=== PATIENT | male | born 1965 | race Caucasian/White ===

== ENCOUNTER 2017-12-17 08:40 | Outpatient (RCR) | payer BC, SELFPAY ==
[2017-12-17 09:52] LABS: Absolute Lymphocyte Count 2.42 X10^3/ul (0.83-4.51); Absolute Neutrophil Count 6.6 X10^3/uL (2.0-7.7); Basophil# 0.03 X10^3/uL; Basophil% 0.3 % (0-1); Eosinophil# 0.26 X10^3/uL; Eosinophils% 2.5 % (0-5); Hematocrit 44.2 % (40-54); Hemoglobin 14.5 g/dl (13.0-16.5); Lymphocyte # 2.42 X10^3/ul (4.0); Lymphocyte % 22.9 % (19-41); Mean Corp Hgb Conc 32.8 g/gl (32-36); Mean Corpuscular Volume 88.4 fL (80-94); Mean Platelet Vol. 10.3 fl (6.2-12.0); Monocyte# 1.23 X10^3/uL; Monocyte% 11.6 % (0-10); Neutrophil # 6.61 X10^3/uL (2.7-7.7); Neutrophil % 62.5 % (47-70); Platelet Count 269 K/mm3 (150-450); RBC Distribution Width CV 12.8 % (11.6-14.6); RBC Distribution Width SD 41.1 fl (35.1-43.9); White Blood Count 10.6 K/mm3 (4.4-11.0)
[2017-12-17 09:53] LABS: POSITIVE COUNT NO; POSITIVE DIFFERENTIAL NO; POSITIVE MORPHOLOGY NO
[2017-12-17 10:23] LABS: ALB/GLOB Ratio 1.1 RATIO (0.9-2.4); AST(SGOT) 26 U/L (15-37); Alanine Aminotransfer ALT/SGPT 32 U/L (12-78); Albumin, Serum 3.9 g/dL (3.4-5.0); Alkaline Phosphatase 67 U/L (45-117); Anion Gap 10 (5-15); BUN 16 mg/dL (7-18); BUN/Creat Ratio 16.6 RATIO (10-20); Bilirubin, Direct 0.12 mg/dL (0.00-0.30); Calcium,Total 8.6 mg/dL (8.5-10.1); Chloride 105 mmol/L (98-107); Cholesterol 208 mg/dL (200); Creatinine, Serum 0.96 mg/dL (0.70-1.30); EST Glomerular Filtration Rate 88 mL/min (>60); Est Glom Filt Rate - Afr Amer 106 mL/min (>60); Globulin 3.6 g/dL (2.2-4.2); Glucose 94 mg/dL (70-110); High Density Lipoprotein 72 mg/dL; PSA,Total - Annual Screen 1.14 ng/mL (0.00-4.00); Potassium 4.1 mmol/L (3.5-5.1); Protein, Total 7.5 g/dL (6.4-8.2); Sodium Level 141 mmol/L (136-145); Triglycerides 66 mg/dL; Very Low Density Lipoprotein 13 mg/dL (5-40)
== END 2017-12-17 08:41 | disposition home or self-care (01) ==
LOC: LAB 08:40
PROVIDERS: Family Provider Family Medicine; PCP Family Medicine; Visit Provider Internal Medicine Rheumatology
DX: Z00.00 Encounter for general adult medical examination without abnormal findings (principal); Z12.5 Encounter for screening for malignant neoplasm of prostate; M06.4 Inflammatory polyarthropathy; Z79.899 Other long term (current) drug therapy
CPT/HCPCS: 36415; 80053; 80061; 82248; 84153; 85025; G0103

== ENCOUNTER → 2018-02-09 10:12 | Outpatient (CLI) | payer BC, SELFPAY ==
[2018-02-09 11:03] LABS: Absolute Lymphocyte Count 1.44 X10^3/ul (0.83-4.51); Absolute Neutrophil Count 4.2 X10^3/uL (2.0-7.7); Basophil# 0.04 X10^3/uL; Basophil% 0.6 % (0-1); Eosinophil# 0.19 X10^3/uL; Eosinophils% 2.7 % (0-5); Hematocrit 43.8 % (40-54); Hemoglobin 14.3 g/dl (13.0-16.5); Lymphocyte # 1.44 X10^3/ul (4.0); Lymphocyte % 20.7 % (19-41); Mean Corp Hgb Conc 32.6 g/gl (32-36); Mean Corpuscular Hgb 29.2 pg (27.0-32.0); Mean Corpuscular Volume 89.4 fL (80-94); Mean Platelet Vol. 9.8 fl (6.2-12.0); Monocyte# 1.11 X10^3/uL; Monocyte% 15.9 % (0-10); Neutrophil # 4.17 X10^3/uL (2.7-7.7); Platelet Count 272 K/mm3 (150-450); RBC Distribution Width CV 13.1 % (11.6-14.6); RBC Distribution Width SD 42.6 fl (35.1-43.9)
[2018-02-09 11:05] LABS: POSITIVE COUNT NO; POSITIVE DIFFERENTIAL NO; POSITIVE MORPHOLOGY NO
[2018-02-09 11:40] LABS: AST(SGOT) 33 U/L (15-37); Alanine Aminotransfer ALT/SGPT 33 U/L (16-61); Albumin, Serum 3.8 g/dL (3.2-5.0); Alkaline Phosphatase 70 U/L (45-117); Creatinine, Serum 0.94 mg/dL (0.70-1.30); EST Glomerular Filtration Rate 90 mL/min (>60); Est Glom Filt Rate - Afr Amer 109 mL/min (>60); Globulin 3.4 g/dL (2.2-4.2); Protein, Total 7.2 g/dL (6.4-8.2)
== END ==
PROVIDERS: Visit Provider Internal Medicine Rheumatology
DX: M06.4 Inflammatory polyarthropathy (principal); Z79.899 Other long term (current) drug therapy
CPT/HCPCS: 36415; 80076; 82565; 85025

== ENCOUNTER → 2018-03-18 17:01 | Outpatient (CLI) | payer BC, SELFPAY ==
--- NOTE | 2018-03-18 17:25 | RAD_ITS ---
STUDY: X-RAY - THORACIC SPINE REASON FOR EXAM: Male, 52 years old. Chronic back pain. TECHNIQUE: 3 view(s) of the thoracic spine were obtained. COMPARISON: None. FINDINGS: Alignment is normal. There is mild anterior wedging of several midthoracic vertebral bodies, which is probably old, along with multilevel marginal osteophytes. In the lower cervical spine disc space narrowing with marginal osteophytes. The soft tissue structures are unremarkable. RAD/Thoracic Spine 3 Views IMPRESSION: Multilevel degenerative changes of the lower cervical and lower thoracic spine. Multilevel mild compression fractures in the midthoracic spine which are probably old. If the patient demonstrates focal tenderness consider correlation with MRI. Electronically Signed: Hernesto Martinez MD at 4:27 EDT , Service support ,
--- NOTE | 2018-03-18 17:26 | RAD_ITS ---
STUDY: X-RAY - LUMBAR SPINE REASON FOR EXAM: Male, 52 years old. Chronic low back pain. TECHNIQUE: 3 view(s) of the lumbar spine were obtained. COMPARISON: None FINDINGS: Normal lumbar lordosis. There is no substantial scoliosis. There is a normal alignment of the vertebrae. Disc space narrowing at multiple levels in the lower thoracic spine as well as from L3-4 through L5-S1. Marginal osteophytes at multiple levels in the lumbar spine. No evidence of acute fracture. The soft tissue structures are unremarkable. RAD/Lumbar Spine 2 or 3 Views IMPRESSION: The level degenerative changes of the lower thoracic and lumbar spine. Electronically Signed: Hernesto Martinez MD at 4:28 EDT , Service support ,
[2018-03-18 17:35] LABS: Absolute Lymphocyte Count 2.73 X10^3/ul (0.83-4.51); Absolute Neutrophil Count 7.2 X10^3/uL (2.0-7.7); Basophil# 0.03 X10^3/uL; Basophil% 0.3 % (0-1); Eosinophil# 0.22 X10^3/uL; Eosinophils% 1.9 % (0-5); Hematocrit 42.5 % (40-54); Hemoglobin 14.1 g/dl (13.0-16.5); Lymphocyte # 2.73 X10^3/ul (4.0); Lymphocyte % 23.5 % (19-41); Mean Corp Hgb Conc 33.2 g/gl (32-36); Mean Corpuscular Hgb 29.4 pg (27.0-32.0); Mean Corpuscular Volume 88.7 fL (80-94); Mean Platelet Vol. 9.3 fl (6.2-12.0); Monocyte% 12.1 % (0-10); Neutrophil # 7.22 X10^3/uL (2.7-7.7); Neutrophil % 62.1 % (47-70); Platelet Count 271 K/mm3 (150-450); RBC Distribution Width CV 12.8 % (11.6-14.6); RBC Distribution Width SD 41.5 fl (35.1-43.9); Red Blood Count 4.79 M/mm3 (4.6-6.2); White Blood Count 11.6 K/mm3 (4.4-11.0)
[2018-03-18 17:39] LABS: POSITIVE COUNT NO; POSITIVE DIFFERENTIAL NO; POSITIVE MORPHOLOGY NO
[2018-03-18 18:12] LABS: AST(SGOT) 37 U/L (15-37); Alanine Aminotransfer ALT/SGPT 33 U/L (16-61); Albumin, Serum 3.7 g/dL (3.2-5.0); Alkaline Phosphatase 68 U/L (45-117); Creatinine, Serum 1.06 mg/dL (0.70-1.30); EST Glomerular Filtration Rate 78 mL/min (>60); Est Glom Filt Rate - Afr Amer 95 mL/min (>60); Globulin 3.2 g/dL (2.2-4.2); Protein, Total 6.9 g/dL (6.4-8.2)
== END ==
PROVIDERS: Family Provider Family Medicine; PCP Family Medicine; Visit Provider Internal Medicine Rheumatology
DX: M13.0 Polyarthritis, unspecified (principal)
CPT/HCPCS: 36415; 72072; 72100; 80076; 82565; 85025

== ENCOUNTER → 2018-04-15 14:22 | Outpatient (CLI) | payer BC, SELFPAY ==
--- NOTE | 2018-04-15 14:30 | BD_ITS ---
STUDY: DUAL ENERGY X-RAY ABSORPTIOMETRY / DXA REASON FOR EXAM: Male, 52 years old. Loss of height. TECHNIQUE: Bone Mineral Density (BMD) measurements of lumbar spine and bilateral hips were obtained. COMPARISON: None. FINDINGS: Lumbar Spine (L1-L4): g/cm2 (1.138) / T-score (-0.5) / Z-score (-0.3) Findings are suggestive of normal bone density with a low fracture risk. Left Femur Total: g/cm2 (1.011) / T-score (-0.6) / Z-score (-0.3) Left Femoral Neck: g/cm2 (1.006) / T-score (-0.5) / Z-score (0.2) Right Femur Total: g/cm2 (1.059) / T-score (-0.3) / Z-score (0.1) Right Femoral Neck: g/cm2 (1.016) / T-score (-0.4) / Z-score (0.2) BD/Dexa Bone Density Study IMPRESSION: The patient is considered normal as outlined below according to World [place] Organization (WHO) criteria with a low fracture risk. Reference Information: The T-score is the number of standard deviations above or below the standard which is normal for young adults at their peak bone mineral density. The World Health Organization (WHO) interprets the T-scores as follows: Above -1 Normal bone density Between -1 and -2.5 Osteopenia Equal to / or below -2.5 Osteoporosis As a practical clinical guideline, osteopenia may be graded as follows: Mild -1 through -1.5 Moderate -1.6 through -2.0 Severe -2.1 through -2.4 The Z-score is the number of standard deviations above or below age-matched controls. A Z-score of less than -1.5 would be considered abnormal. References: 1. NIH Osteoporosis and Related Bone Diseases http://www.osteo.org 2. International Society for Clinical Densitometry http://www.iscd.org 3. National Osteoporosis Foundation http://www.nof.org Electronically Signed: Shaan Reese MD at 15:44 EDT Tel [phone], Service support ,
== END ==
PROVIDERS: Family Provider Family Medicine; PCP Family Medicine; Visit Provider Family Medicine
DX: M06.9 Rheumatoid arthritis, unspecified (principal)
CPT/HCPCS: 77080

== ENCOUNTER → 2018-04-22 15:27 | Outpatient (CLI) | payer BC, SELFPAY ==
--- NOTE | 2018-04-22 15:31 | MRI_ITS ---
STUDY: MRI THORACIC SPINE WITHOUT CONTRAST REASON FOR EXAM: Male, 52 years old. PAIN, POLYARTHRITIS -- upper,lower thoracic pain, low back pain, no radiculopathy, NKI. TECHNIQUE: Standardized fat and water weighted pulse sequences were obtained in the sagittal and axial planes. COMPARISON: None. FINDINGS: Normal kyphosis of the thoracic spine. There is no substantial scoliosis. T1-2, T2-3, T3-4, T4-5, T5-6, T6-7, T7-8, T8-9, T9-10, T10-11, T11-12: There is diffuse disc space narrowing and endplate spondylosis without significant central canal or foraminal stenosis. Additionally there are multilevel small chronic Schmorl's nodes. Normal visualized thoracic cord. The soft tissue structures are unremarkable. MRI/Spine Thoracic (Routine) IMPRESSION: Mild degenerative changes. Electronically Signed: Peggy Arechiga MD at 11:12 EDT Tel , Service support ,
--- NOTE | 2018-04-22 15:31 | MRI_ITS ---
STUDY: MRI LUMBAR SPINE WITHOUT CONTRAST REASON FOR EXAM: Male, 52 years old. Pain TECHNIQUE: Standardized fat and water weighted pulse sequences were obtained in the sagittal and axial planes. COMPARISON: X-ray 03/18/2018 FINDINGS: T12-L1: There is disc desiccation (image 7/32 sagittal T2). Normal lumbar lordosis. There is no substantial scoliosis. Normal conus medullaris that terminates at the T12-L1 level. L1-2: There is disc desiccation (image 7/13 sagittal T2). L2-3: There is disc desiccation, slight loss of disc space height, endplate spondylosis and disc bulge with shallow left extraforaminal disc protrusion (image 18, 17/25 axial T2, 7/13 sagittal T2). There is impingement of the left exiting L2 nerve root. Central and lateral recess spinal stenosis is moderate to marked in nature. L3-4: There is disc desiccation, slight loss of disc space height, endplate spondylosis, disc bulge and right preforaminal disc protrusion. There is marked impingement the right lateral recess. Central and left lateral recess spinal stenosis is moderate to marked in nature (image 14, 13, 12/25 axial T2, 8, 7, 6/13 sagittal T2). L4-5: There is disc desiccation, slight loss of disc space height, endplate spondylosis, disc bulge and facet osteoarthritis (image 8/25 axial T2, T10, 7, 3/13 sagittal T2). Central and lateral recess spinal stenosis is moderate in nature. There is narrowing of the neural foramina. L5-S1: There is disc desiccation, disc bulge and facet osteoarthritis predominating on the left (image 3/25 axial T2, 8/13 sagittal T2). Normal visualized sacral ala. Normal visualized paraspinous soft tissue structures. MRI/Spine Lumbar (Routine) IMPRESSION: Degenerative impingement right lateral recess, L3-L4, with [id number] central and left lateral recess spinal stenosis Moderate to marked degenerative central and lateral recess spinal stenosis, L2-L3 with left extraforaminal disc protrusion impinging upon the left exiting L2 nerve root Moderate degenerative central recess spinal stenosis, L4-L5, with narrowing of the neural foramina Multilevel degenerative disease Electronically Signed: Jefry Amin MD at 21:55 EDT Tel , Service support ,
== END ==
PROVIDERS: Family Provider Family Medicine; PCP Family Medicine; Visit Provider Family Medicine
DX: M06.9 Rheumatoid arthritis, unspecified (principal); M54.89 Other dorsalgia; M51.36 Other intervertebral disc degeneration, lumbar region
CPT/HCPCS: 72146; 72148

== ENCOUNTER → 2018-05-08 09:19 | Outpatient (CLI) | payer BC, SELFPAY ==
[2018-05-08 10:47] LABS: Absolute Lymphocyte Count 1.44 X10^3/ul (0.83-4.51); Absolute Neutrophil Count 3.8 X10^3/uL (2.0-7.7); Basophil# 0.06 X10^3/uL; Basophil% 0.9 % (0-1); Eosinophils% 4.6 % (0-5); Hematocrit 44.7 % (40-54); Hemoglobin 15.1 g/dl (13.0-16.5); Lymphocyte # 1.44 X10^3/ul (4.0); Lymphocyte % 21.9 % (19-41); Mean Corp Hgb Conc 33.8 g/gl (32-36); Mean Corpuscular Hgb 29.8 pg (27.0-32.0); Mean Corpuscular Volume 88.2 fL (80-94); Mean Platelet Vol. 10.2 fl (6.2-12.0); Monocyte# 0.98 X10^3/uL; Monocyte% 14.9 % (0-10); Neutrophil # 3.79 X10^3/uL (2.7-7.7); Neutrophil % 57.5 % (47-70); POSITIVE COUNT NO; POSITIVE DIFFERENTIAL NO; POSITIVE MORPHOLOGY NO; Platelet Count 281 K/mm3 (150-450); RBC Distribution Width CV 12.6 % (11.6-14.6); RBC Distribution Width SD 40.5 fl (35.1-43.9); Red Blood Count 5.07 M/mm3 (4.6-6.2); White Blood Count 6.6 K/mm3 (4.4-11.0)
[2018-05-08 11:37] LABS: AST(SGOT) 31 U/L (15-37); Alanine Aminotransfer ALT/SGPT 32 U/L (16-61); Albumin, Serum 3.7 g/dL (3.2-5.0); Alkaline Phosphatase 79 U/L (45-117); Creatinine, Serum 0.94 mg/dL (0.70-1.30); EST Glomerular Filtration Rate 90 mL/min (>60); Est Glom Filt Rate - Afr Amer 108 mL/min (>60); Globulin 3.5 g/dL (2.2-4.2); Protein, Total 7.2 g/dL (6.4-8.2)
== END ==
PROVIDERS: Family Provider Family Medicine; PCP Family Medicine; Visit Provider Internal Medicine Rheumatology
DX: Z79.899 Other long term (current) drug therapy (principal)
CPT/HCPCS: 36415; 80076; 82565; 85025

== ENCOUNTER 2018-06-05 11:12 | Observation (INO) | payer BC, SELFPAY ==
[2018-06-05] VITALS (9 sets, daily range): BP systolic 142–159; BP diastolic 83–108; PULSE 76–112; RESP 16–23; TEMP 36.4–36.9; O2SAT 97–98; BMI 22.8; BMI 23.1
--- NOTE | 2018-06-05 11:27 | RAD_ITS ---
STUDY: X-RAY CHEST REASON FOR EXAM: Male, 52 years old. Near-syncope TECHNIQUE: Portable upright COMPARISON: 12/27/2014 FINDINGS: The lungs are clear and expanded. Normal cardiomediastinal silhouette, leeann and pleural margins. No acute osseous or upper abdominal process. RAD/Chest 1 View (Portable) IMPRESSION: No acute cardiopulmonary process. Electronically Signed: Clint Butcher, at 12:25 EDT Tel , Service support ,
--- NOTE | 2018-06-05 11:28 | EKG12_ITS ---
Test Reason : CP/NEAR SYNCOPE Blood Pressure : / mmHG Vent. Rate : 102 BPM Atrial Rate : 102 BPM P-R Int : 132 ms QRS Dur : 074 ms QT Int : 342 ms P-R-T Axes : 059 -24 019 degrees QTc Int : 445 ms Sinus tachycardia Otherwise normal ECG Confirmed by JACKIE RAMOS, TEGAN ([id number]), newspaper or periodical editor VICENTE KRISHNAN ([id number]) on 06/08/2018 1:42:38 PM Referred By: JESI/OUSMANE Confirmed By:TEGAN MEJIA MD
[2018-06-05] MEDS: 0.9% Normal Saline 1,000 ML 150 ML IV (11:41)
[2018-06-05 11:45] LABS: Absolute Neutrophil Count 8.6 X10^3/uL (2.0-7.7); Basophil# 0.05 X10^3/uL; Basophil% 0.4 % (0-1); Eosinophil# 0.23 X10^3/uL; Hematocrit 48.2 % (40-54); Hemoglobin 16.1 g/dl (13.0-16.5); Lymphocyte % 18.8 % (19-41); Mean Corp Hgb Conc 33.4 g/gl (32-36); Mean Corpuscular Hgb 29.2 pg (27.0-32.0); Mean Corpuscular Volume 87.5 fL (80-94); Mean Platelet Vol. 9.6 fl (6.2-12.0); Monocyte# 0.58 X10^3/uL; Neutrophil % 73.6 % (47-70); POSITIVE COUNT NO; POSITIVE DIFFERENTIAL NO; POSITIVE MORPHOLOGY NO; Platelet Count 267 K/mm3 (150-450); RBC Distribution Width CV 12.7 % (11.6-14.6); RBC Distribution Width SD 40.7 fl (35.1-43.9); Red Blood Count 5.51 M/mm3 (4.6-6.2); White Blood Count 11.7 K/mm3 (4.4-11.0)
[2018-06-05 11:57] LABS: Anion Gap 6 (5-15); BUN 13 mg/dL (7-18); Chloride 105 mmol/L (98-107); EST Glomerular Filtration Rate 84 mL/min (>60); Est Glom Filt Rate - Afr Amer 101 mL/min (>60); Estimated Creatinine Clearance 87.88 ml/min; Glucose 99 mg/dL (74-106); Potassium 4.2 mmol/L (3.5-5.1); Sodium Level 140 mmol/L (136-145)
[2018-06-05 12:01] LABS: D-Dimer Quantitative (DVT/PE) < 0.27 FEU/ug/m (0.27-0.49)
--- NOTE | 2018-06-05 12:40 | ED.VISSUMM ---
- ER Visit Summary Date of Service: 06/05/18 Chief Complaint: [Near syncope] History of Present Illness: The patient is a 52 M [presents the emergency department with complaint of episodes of near syncope over the last 2 days. Patient states that while at work 2 days ago he was on his hands and knees and got sudden onset of tunnel vision and felt like everything got tight in his body. Patient described becoming very clammy and developed cold sweats. Patient felt like he was in a pass out but did not actually have a syncopal episode. Patient denies any chest pain when this happens but does feel somewhat short of breath. Patient denies any recent illness. He denies recent travel. Patient states that his father's had multiple MIs that started in his 40s. Patient has not had episodes like this before.] She denies any blood in stool or black tarry stools. Physical Examination: [HEENT-PERRLA, EOMI. Cranial nerves II through XII grossly intact. TMs clear. Mucous membranes moist. No adenopathy. Cardiovascular-regular rate and rhythm without murmur or ectopy Lungs-clear to auscultation, chest wall stable without crepitus or subcu emphysema Abdomen-normoactive bowel sounds, soft, nontender, no rebound or rigidity, no peritoneal signs. Neuro xajp-jlcgrv-kwms and heel kaplan testing within normal limits, negative Romberg, negative pronator drift, fundi benign Extremities-intact ?4, normal range of motion, normal pulses, atraumatic] Test Results: [EKG obtained on arrival shows sinus rhythm with a ventricular rate of 102 bpm. No acute I segment changes noted. CBC with differential was significant for a white count of 11.7, hemoglobin 16, hematocrit 48, platelets 267. Chemistries unremarkable. Troponin was less than 0.015. D-dimer was normal less than 0.27. ] Emergency Department Course and Treatment: [Patient had an IV line established and was given normal saline with 25 cc an hour.] Treatment Plan: [Admit for further monitoring and evaluation] Disposition: [Admit] Impression: [Near syncope-etiology uncertain] This note was generated with [employer] dictation software. It may contain incorrect words, spelling, and punctuation that were not noted in review of the chart prior to signing ED Disposition - Plan for ED Patient: Chief Complaint: Syncope Referrals: Evelia Bains MD [Primary Care Provider] -
--- NOTE | 2018-06-05 12:44 | ED.DCSUM_ITS ---
- ER Visit Summary Date of Service: 06/05/18 Chief Complaint: [Near syncope] History of Present Illness: The patient is a 52 M [presents the emergency department with complaint of episodes of near syncope over the last 2 days. Patient states that while at work 2 days ago he was on his hands and knees and got sudden onset of tunnel vision and felt like everything got tight in his body. Patient described becoming very clammy and developed cold sweats. Patient felt like he was in a pass out but did not actually have a syncopal episode. Patient denies any chest pain when this happens but does feel somewhat short of breath. Patient denies any recent illness. He denies recent travel. Patient states that his father's had multiple MIs that started in his 40s. Patient has not had episodes like this before.] She denies any blood in stool or black tarry stools. Physical Examination: [HEENT-PERRLA, EOMI. Cranial nerves II through XII grossly intact. TMs clear. Mucous membranes moist. No adenopathy. Cardiovascular-regular rate and rhythm without murmur or ectopy Lungs-clear to auscultation, chest wall stable without crepitus or subcu emphysema Abdomen-normoactive bowel sounds, soft, nontender, no rebound or rigidity, no peritoneal signs. Neuro kjgd-hjrwak-qzuz and heel kaplan testing within normal limits, negative Romberg, negative pronator drift, fundi benign Extremities-intact ?4, normal range of motion, normal pulses, atraumatic] Test Results: [EKG obtained on arrival shows sinus rhythm with a ventricular rate of 102 bpm. No acute I segment changes noted. CBC with differential was significant for a white count of 11.7, hemoglobin 16, hematocrit 48, platelets 267. Chemistries unremarkable. Troponin was less than 0.015. D-dimer was normal less than 0.27. ] Emergency Department Course and Treatment: [Patient had an IV line established and was given normal saline with 25 cc an hour.] Treatment Plan: [Admit for further monitoring and evaluation] Disposition: [Admit] Impression: [Near syncope-etiology uncertain] This note was generated with [employer] dictation software. It may contain incorrect words, spelling, and punctuation that were not noted in review of the chart prior to signing ED Disposition - Plan for ED Patient: Chief Complaint: Syncope Referrals: Evelia Bains MD [Primary Care Provider] -
--- NOTE | 2018-06-05 14:52 | PCM.HP.STD ---
Problem List (1) Near syncope Status: Acute (2) Arthritis Status: Chronic History of Present Illness Date of Admission: 06/05/18 Chief Complaint: near syncope The patient is a 52 year old M with a history of arthritis for which she follows rheumatology, who presented to the emergency room with chief complaint of near syncopal episodes. He states that these began . They would occur without warning both with activity and at rest. He would suddenly have an acute onset of tunnel vision, become short of breath, and feel an unusual tightness sensation in his rectum and pelvis area. He states he felt like he was going to pass out however he was able to fight it off . He has not actually lost consciousness. The sensation would come and go throughout the day, he states a total of 3 times since . He had no associated headache, focal weakness, dizziness, double vision, slurring of speech, facial droop, no chest pain or palpitations. He has no history of seizure. He has no history of stroke. He takes multiple medications for arthritis including prednisone, hydroxychloroquine, Arava, Mobic, Flexeril, denies rheumatic disease. [] Past Medical History Past Medical History (Chronic Problems): Chronic Problems Arthritis (Chronic) Allergies No Known Allergies Allergy (Verified 06/05/18 11:15) Home Medications: Ambulatory Orders Medication Instructions Recorded Meloxicam [Mobic] 15 mg PO DAILY 07/18/16 Hydroxychloroquine [Plaquenil] 400 mg PO DAILYCM 03/01/17 Leflunomide [Arava] 20 mg PO DAILY 03/01/17 predniSONE tablet 5 mg PO DAILY PRN 03/01/17 Omeprazole [Prilosec] 20 mg PO QHS 12/04/17 Cyclobenzaprine [Flexeril] 10 mg PO PRN PRN 06/05/18 Surgical History: herniorrhaphy, tonsillectomy, - - Carpal tunnel release right Psychiatric History: No pertinent psych hx Lives: Spouse/ Significant Other Smoking Status: Never smoker Tobacco Use: Non-smoker Alcohol: None Drugs: None - *Family History Maternal History Items: No pertinent history Paternal History Items: Heart Disease Review of Systems Constitutional: Denies: Chills, Fever, Weight Change HEENT: Denies: Head Aches, Sinus Congestion, Sinus Drainage Cardiovascular: Reports: Light Headedness. Denies: Chest Pain, Chest Pressure, Edema, Heaviness, Palpitations Respiratory: Reports: Shortness of breath at rest. Denies: Cough, Shortness of Breath, Shortness of breath upon exertion, Sputum production, Wheezing Gastrointestinal: Denies: Abdominal Pain, Nausea, Vomiting Genitourinary: Denies: Dysuria Musculoskeletal: Denies: Joint Pain, Joint Tenderness Skin: Denies: Rash, Wounds Neurological: Denies: Numbness, Tingling, Focal weakness Psychiatric: Denies: Anxiety, Depression, Homicidal Ideations, Suicidal Ideations Hematologic/ Lymphatic: Denies: Easy Bruising, Easy Bleeding VTE Information - Inpt Only VTE Present on Admission: No VTE Mechan Device Prophylaxis: SCD's VTE Pharm Prophylaxis ordered?: Yes Patient Problems: Active and Suspected Problems Near syncope (Acute) - Physical Exam General: Alert, Oriented x3, Cooperative HEENT: Atraumatic, PERRLA, EOMI, Normocephalic Neck: Supple, No JVD, Negative Carotid Bruits Lungs: Clear to auscultation, Normal air movement Cardiovascular: Regular rate, No murmurs Abdomen: Bowel Sounds Present, Soft, Non Tender Extremities: No edema, Capillary Refill Less than 3 Seconds Skin: No rashes, No breakdown Musculoskeletal: No Tenderness to Palpation of Joints or Extremities Neurological: Cranial nerves II-XII grossly intact Psych/Mental Status: Normal Affect, Appropriate, Alert and oriented to time, place, person, mood and affect Vital Signs Temp Pulse Resp BP Pulse Ox 97.6 F L 80 16 142/87 H 97 06/05/18 13:37 06/05/18 13:44 06/05/18 13:37 06/05/18 13:37 06/05/18 13:37 Oxygen Delivery Method Room Air Weight: 70.942 kg Body Mass Index (BMI) 23.1 Orthostatic Vital Signs Start: 06/05/18 14:00 Freq: q24h Status: Active Protocol: Activity Type Activity Date Activity User E-Sign Co-Sign Detail Recorded Client Recorded Date Recorded By Document 06/05/18 13:37 [facility] [place] [id number] 06/05/18 14:23 [facility] [place] 06/05/18 13:37 Orthostatic Vitals Standing -Blood Pressure (90/60-120/80) 155/108 H -Extremity Use Right Arm -Pulse Rate (60-100) 98 Sitting -Blood Pressure (90/60-120/80) 156/99 H -Extremity Use Right Arm -Pulse Rate (60-100) 80 Lying -Blood Pressure (90/60-120/80) 142/87 H -Extremity Use Right Arm -Pulse Rate (60-100) 76 Assessment/Plan All Active Problems Near syncope (Acute) 1. Near syncope-multiple episodes of tunnel vision on , symptoms, at rest and during activity without warning. No history of stroke or seizure, no palpitations. No history of heart disease. He will be admitted to the PCU and placed on monitoring. He may need to be set up with a Holter monitor and possibly undergo a stress test. Cardiology will be consulted. Will check orthostatic vital signs. D-dimer was negative, EKG was negative, he had a mildly elevated WBC count and negative troponin labs were otherwise unremarkable. He had a chest x-ray in the ER which was negative. His physical exam was unremarkable orthostatic vitals in the emergency room were neck. 2. Arthritis-continue home medications. DVT prophylaxis: Lovenox Discharge planning: Patient will likely return home with his . This patient was seen by Tevin James PA-C under the supervision of Doctor Collier.
--- NOTE | 2018-06-05 15:03 | HP.PCM_ITS ---
Problem List (1) Near syncope Status: Acute (2) Arthritis Status: Chronic History of Present Illness Date of Admission: 06/05/18 Chief Complaint: near syncope The patient is a 52 year old M with a history of arthritis for which she follows rheumatology, who presented to the emergency room with chief complaint of near syncopal episodes. He states that these began . They would occur without warning both with activity and at rest. He would suddenly have an acute onset of tunnel vision, become short of breath, and feel an unusual tightness sensation in his rectum and pelvis area. He states he felt like he was going to pass out however he was able to fight it off . He has not actually lost consciousness. The sensation would come and go throughout the day , he states a total of 3 times since . He had no associated headache, focal weakness, dizziness, double vision, slurring of speech, facial droop, no chest pain or palpitations. He has no history of seizure. He has no history of stroke. He takes multiple medications for arthritis including prednisone, hydroxychloroquine, Arava, Mobic, Flexeril, denies rheumatic disease. [] Past Medical History Past Medical History (Chronic Problems): Chronic Problems Arthritis (Chronic) Allergies No Known Allergies Allergy (Verified 06/05/18 11:15) Home Medications: Ambulatory Orders Medication Instructions Recorded Meloxicam [Mobic] 15 mg PO DAILY 07/18/16 Hydroxychloroquine [Plaquenil] 400 mg PO DAILYCM 03/01/17 Leflunomide [Arava] 20 mg PO DAILY 03/01/17 predniSONE tablet 5 mg PO DAILY PRN 03/01/17 Omeprazole [Prilosec] 20 mg PO QHS 12/04/17 Cyclobenzaprine [Flexeril] 10 mg PO PRN PRN 06/05/18 Surgical History: herniorrhaphy, tonsillectomy, - - Carpal tunnel release right Psychiatric History: No pertinent psych hx Lives: Spouse/ Significant Other Smoking Status: Never smoker Tobacco Use: Non-smoker Alcohol: None Drugs: None - *Family History Maternal History Items: No pertinent history Paternal History Items: Heart Disease Review of Systems Constitutional: Denies: Chills, Fever, Weight Change HEENT: Denies: Head Aches, Sinus Congestion, Sinus Drainage Cardiovascular: Reports: Light Headedness. Denies: Chest Pain, Chest Pressure, Edema, Heaviness, Palpitations Respiratory: Reports: Shortness of breath at rest. Denies: Cough, Shortness of Breath, Shortness of breath upon exertion, Sputum production, Wheezing Gastrointestinal: Denies: Abdominal Pain, Nausea, Vomiting Genitourinary: Denies: Dysuria Musculoskeletal: Denies: Joint Pain, Joint Tenderness Skin: Denies: Rash, Wounds Neurological: Denies: Numbness, Tingling, Focal weakness Psychiatric: Denies: Anxiety, Depression, Homicidal Ideations, Suicidal Ideations Hematologic/ Lymphatic: Denies: Easy Bruising, Easy Bleeding VTE Information - Inpt Only VTE Present on Admission: No VTE Mechan Device Prophylaxis: SCD's VTE Pharm Prophylaxis ordered?: Yes Patient Problems: Active and Suspected Problems Near syncope (Acute) - Physical Exam General: Alert, Oriented x3, Cooperative HEENT: Atraumatic, PERRLA, EOMI, Normocephalic Neck: Supple, No JVD, Negative Carotid Bruits Lungs: Clear to auscultation, Normal air movement Cardiovascular: Regular rate, No murmurs Abdomen: Bowel Sounds Present, Soft, Non Tender Extremities: No edema, Capillary Refill Less than 3 Seconds Skin: No rashes, No breakdown Musculoskeletal: No Tenderness to Palpation of Joints or Extremities Neurological: Cranial nerves II-XII grossly intact Psych/Mental Status: Normal Affect, Appropriate, Alert and oriented to time, place, person, mood and affect Vital Signs Temp Pulse Resp BP Pulse Ox 97.6 F L 80 16 142/87 H 97 06/05/18 13:37 06/05/18 13:44 06/05/18 13:37 06/05/18 13:37 06/05/18 13:37 Oxygen Delivery Method Room Air Weight: 70.942 kg Body Mass Index (BMI) 23.1 Orthostatic Vital Signs Start: 06/05/18 14:00 Freq: q24h Status: Active Protocol: Activity Type Activity Date Activity User E-Sign Co-Sign Detail Recorded Client Recorded Date Recorded By Document 06/05/18 13:37 [facility] [place] [id number] 06/05/18 14:23 [facility] [place] 06/05/18 13:37 Orthostatic Vitals Standing -Blood Pressure (90/60-120/80) 155/108 H -Extremity Use Right Arm -Pulse Rate (60-100) 98 Sitting -Blood Pressure (90/60-120/80) 156/99 H -Extremity Use Right Arm -Pulse Rate (60-100) 80 Lying -Blood Pressure (90/60-120/80) 142/87 H -Extremity Use Right Arm -Pulse Rate (60-100) 76 Assessment/Plan All Active Problems Near syncope (Acute) 1. Near syncope-multiple episodes of tunnel vision on , symptoms, at rest and during activity without warning. No history of stroke or seizure, no palpitations. No history of heart disease. He will be admitted to the PCU and placed on monitoring. He may need to be set up with a Holter monitor and possibly undergo a stress test. Cardiology will be consulted. Will check orthostatic vital signs. D-dimer was negative, EKG was negative, he had a mildly elevated WBC count and negative troponin labs were otherwise unremarkable. He had a chest x-ray in the ER which was negative. His physical exam was unremarkable orthostatic vitals in the emergency room were neck. 2. Arthritis-continue home medications. DVT prophylaxis: Lovenox Discharge planning: Patient will likely return home with his . This patient was seen by Tevin James PA-C under the supervision of Doctor Collier.
[2018-06-06] VITALS (7 sets, daily range): BP systolic 129–148; BP diastolic 75–101; PULSE 64–110; RESP 15–18; TEMP 36.3–36.8; O2SAT 96–97
--- NOTE | 2018-06-06 09:48 | DCINST_ITS ---
- Discharge Diagnoses Current Active Problems: Current Active and Chronic Problems Near syncope (Acute) Arthritis (Chronic) You will use the following diet at home:: No restrictions Your food should be the consistency of: Regular Your liquids should be the consistency of: Regular/Thin Discharge Activity: Return to Normal Activity Weight Bearing Status: Full weight bearing Allergies/Adverse Reactions: Allergies No Known Allergies Allergy (Verified 06/05/18 11:15) Medications to take at Discharge Meloxicam [Mobic] 15 mg PO DAILY 07/18/16 Hydroxychloroquine [Plaquenil] 400 mg PO DAILYCM 03/01/17 Leflunomide [Arava] 20 mg PO DAILY 03/01/17 predniSONE tablet 5 mg PO DAILY PRN 03/01/17 Omeprazole [Prilosec] 20 mg PO QHS 12/04/17 Cyclobenzaprine [Flexeril] 10 mg PO PRN PRN 06/05/18 Primary Care Physician: Evelia Bains MD [Primary Care Provider] - Please follow up with your Primary Care Physician in: call on 06/07/18 for follow up and arrange for ECHO, other possible tests Test Results: Test results from this visit will be discussed in further detail at your follow- up appointment, if applicable.
--- NOTE | 2018-06-06 14:51 | PCM.DC.SUM ---
Discharge Date and Diagnosis Date of Admission: 06/05/18 Date of Discharge: 06/06/18 - Primary Discharge Diagnosis Near syncope Arthritis - Secondary Discharge Diagnosis Chronic Problems Arthritis (Chronic) Hospital Course and Treatment Imaging Results: RAD/Chest 1 View (Portable) IMPRESSION: No acute cardiopulmonary process. Operations: None Procedures: None Summary of Care Provided: Physical exam on day of discharge: General: Resting comfortably NAD Psych: A/Ox3 normal affect HEENT: PEARRLA AT NC Neck: Supple NT CV: RRR no m/t/r/g/h Resp: CTA Abd: NABSX4 Soft NT no guarding or rigidity Ext: DP2+= no edema Skin: W/D normal turgor Lymph/Heme: No active bleeding or adenopathy Neuro: CN2-12 intact Hospital course: The patient is a 52 year old M with a history of arthritis who presented to the emergency room with chief complaint of near syncope. Patient reportedly had 3 episodes at home where both with activity at rest he would experience sudden episodes of tunnel vision feeling like he was going to pass out, tightness in his perineal region, shortness of breath. He never fully lost consciousness. He presented to the emergency room and underwent EKG and troponin which were negative. He had a negative d-dimer. His blood work demonstrated mild leukocytosis of unclear etiology, and he had a negative chest x-ray. He was admitted for observation on the PCU with cardiac monitoring. He was monitored overnight and had no abnormalities on telemetry. He had no further symptoms after admission at all. At this time he was advised that he would need to follow-up as an outpatient with cardiology and would need to set up an appointment on Thursday to see his PCP and a fabrication and assembly supervisor and probably have a Holter monitor placed and get an outpatient echo. He is advised to also follow-up with his PCP in 1-2 weeks. He is discharged home in stable condition. This patient was seen by Tevin James PA-C under the supervision of Doctor Collier.] Discharge Diet: No Restrictions Discharge Activity: Return to Normal Activity Weight Bearing Status: Full weight bearing Home Medications: Medications to take at Discharge Meloxicam [Mobic] 15 mg PO DAILY 07/18/16 Hydroxychloroquine [Plaquenil] 400 mg PO DAILYCM 03/01/17 Leflunomide [Arava] 20 mg PO DAILY 03/01/17 predniSONE tablet 5 mg PO DAILY PRN 03/01/17 Omeprazole [Prilosec] 20 mg PO QHS 12/04/17 Cyclobenzaprine [Flexeril] 10 mg PO PRN PRN 06/05/18 Primary Care Physician: Evelia Bains MD [Primary Care Provider] - Please follow up with your Primary Care Physician in: call on 06/07/18 for follow up and arrange for ECHO, other possible tests Disposition: Home Minutes spent on discharge:: 35 Patient Condition:: Stable Medical Necessity - Tobacco Use Smoking Status: Never smoker Tobacco Use: Non-smoker Meaningful Use Info Meaningful Use Diagnoses (Choose all that apply): None applicable
--- NOTE | 2018-06-06 14:55 | DS.PCM_ITS ---
Discharge Date and Diagnosis Date of Admission: 06/05/18 Date of Discharge: 06/06/18 - Primary Discharge Diagnosis Near syncope Arthritis - Secondary Discharge Diagnosis Chronic Problems Arthritis (Chronic) Hospital Course and Treatment Imaging Results: RAD/Chest 1 View (Portable) IMPRESSION: No acute cardiopulmonary process. Operations: None Procedures: None Summary of Care Provided: Physical exam on day of discharge: General: Resting comfortably NAD Psych: A/Ox3 normal affect HEENT: PEARRLA AT NC Neck: Supple NT CV: RRR no m/t/r/g/h Resp: CTA Abd: NABSX4 Soft NT no guarding or rigidity Ext: DP2+= no edema Skin: W/D normal turgor Lymph/Heme: No active bleeding or adenopathy Neuro: CN2-12 intact Hospital course: The patient is a 52 year old M with a history of arthritis who presented to the emergency room with chief complaint of near syncope. Patient reportedly had 3 episodes at home where both with activity at rest he would experience sudden episodes of tunnel vision feeling like he was going to pass out, tightness in his perineal region, shortness of breath. He never fully lost consciousness. He presented to the emergency room and underwent EKG and troponin which were negative. He had a negative d-dimer. His blood work demonstrated mild leukocytosis of unclear etiology, and he had a negative chest x-ray. He was admitted for observation on the PCU with cardiac monitoring. He was monitored overnight and had no abnormalities on telemetry. He had no further symptoms after admission at all. At this time he was advised that he would need to follow-up as an outpatient with cardiology and would need to set up an appointment on Thursday to see his PCP and a optical dispenser and probably have a Holter monitor placed and get an outpatient echo. He is advised to also follow- up with his PCP in 1-2 weeks. He is discharged home in stable condition. This patient was seen by Tevin James PA-C under the supervision of Doctor Collier.] Discharge Diet: No Restrictions Discharge Activity: Return to Normal Activity Weight Bearing Status: Full weight bearing Home Medications: Medications to take at Discharge Meloxicam [Mobic] 15 mg PO DAILY 07/18/16 Hydroxychloroquine [Plaquenil] 400 mg PO DAILYCM 03/01/17 Leflunomide [Arava] 20 mg PO DAILY 03/01/17 predniSONE tablet 5 mg PO DAILY PRN 03/01/17 Omeprazole [Prilosec] 20 mg PO QHS 12/04/17 Cyclobenzaprine [Flexeril] 10 mg PO PRN PRN 06/05/18 Primary Care Physician: Evelia Bains MD [Primary Care Provider] - Please follow up with your Primary Care Physician in: call on 06/07/18 for follow up and arrange for ECHO, other possible tests Disposition: Home Minutes spent on discharge:: 35 Patient Condition:: Stable Medical Necessity - Tobacco Use Smoking Status: Never smoker Tobacco Use: Non-smoker Meaningful Use Info Meaningful Use Diagnoses (Choose all that apply): None applicable
== END 2018-06-06 09:47 | disposition home or self-care (01) ==
LOC: ED 12:23 → PCU 13:11
PROVIDERS: Admitting Provider Internal Medicine; Emergency Provider Emergency Medicine; Family Provider Family Medicine; PCP Family Medicine; Visit Provider Internal Medicine
DX: R55 Syncope and collapse (principal); M19.90 Unspecified osteoarthritis, unspecified site; R06.02 Shortness of breath; H53.489 Generalized contraction of visual field, unspecified eye; Z79.899 Other long term (current) drug therapy; Z79.52 Long term (current) use of systemic steroids; G89.29 Other chronic pain; M54.9 Dorsalgia, unspecified
CPT/HCPCS: 71045; 80048; 84484; 85025; 85379; 93005; 96360; 96361; 99218; 99285; A4216; G0378

== ENCOUNTER → 2018-06-09 15:49 | Outpatient (CLI) | payer BC, SELFPAY ==
[2018-06-09 17:20] LABS: Absolute Lymphocyte Count 1.54 X10^3/ul (0.83-4.51); Absolute Neutrophil Count 7.3 X10^3/uL (2.0-7.7); Basophil# 0.04 X10^3/uL; Basophil% 0.4 % (0-1); Eosinophil# 0.19 X10^3/uL; Eosinophils% 1.8 % (0-5); Hematocrit 47.1 % (40-54); Lymphocyte # 1.54 X10^3/ul (4.0); Lymphocyte % 14.9 % (19-41); Mean Corpuscular Hgb 29.4 pg (27.0-32.0); Mean Corpuscular Volume 86.6 fL (80-94); Mean Platelet Vol. 10.4 fl (6.2-12.0); Monocyte# 1.26 X10^3/uL; Monocyte% 12.2 % (0-10); Neutrophil # 7.32 X10^3/uL (2.7-7.7); Neutrophil % 70.5 % (47-70); Platelet Count 295 K/mm3 (150-450); RBC Distribution Width CV 12.3 % (11.6-14.6); RBC Distribution Width SD 39.2 fl (35.1-43.9); Red Blood Count 5.44 M/mm3 (4.6-6.2); White Blood Count 10.4 K/mm3 (4.4-11.0)
[2018-06-09 17:24] LABS: POSITIVE COUNT NO; POSITIVE DIFFERENTIAL NO; POSITIVE MORPHOLOGY NO
[2018-06-09 18:51] LABS: AST(SGOT) 33 U/L (15-37); Alanine Aminotransfer ALT/SGPT 37 U/L (16-61); Albumin, Serum 4.1 g/dL (3.2-5.0); Alkaline Phosphatase 82 U/L (45-117); Bilirubin, Direct 0.09 mg/dL (0.00-0.30); EST Glomerular Filtration Rate 75 mL/min (>60); Est Glom Filt Rate - Afr Amer 91 mL/min (>60); Globulin 3.6 g/dL (2.2-4.2); Protein, Total 7.7 g/dL (6.4-8.2); T4 Total, Thyroxin 12.1 ug/dL (4.5-12.1); Thyroid Stim Hormone (TSH) 0.34 uIU/mL (0.358-3.74)
== END ==
PROVIDERS: Family Provider Family Medicine; PCP Family Medicine; Visit Provider Internal Medicine Cardiovascular Disease
DX: R00.2 Palpitations (principal); Z79.899 Other long term (current) drug therapy
CPT/HCPCS: 36415; 80076; 82565; 84436; 84443; 85025

== ENCOUNTER → 2018-06-15 12:34 | Outpatient (CLI) | payer BC, SELFPAY ==
--- NOTE | 2018-06-15 12:36 | ECHOD_ITS ---
Reason For Study: ARRHYTHMIA Procedure This was a 2D Doppler, Color Flow transthoracic echocardiogram. Exam performed portable in patient room. Left Ventricle Normal LV size. Left ventricular systolic function is normal. The estimated ejection fraction is 55 %. Transmitral diastolic flow velocities suggest mild (stage 1) diastolic dysfunction (reversed pattern). No regional wall motion abnormalities noted. Right Ventricle Normal RV size. Normal systolic function. Atria Normal left atrium. Normal right atrium. Mitral Valve Bileaflet diffuse mitral valve thickening. Mild mitral valve prolapse. Mild (1+) eccentric mitral valve insufficiency. Tricuspid Valve Normal tricuspid valve. Unable to estimate RV systolic pressure due to inadequate jet, pulmonary artery pressure probably normal. Aortic Valve Normal aortic valve. Trisinus/trileaflet aortic valve. Pulmonic Valve Normal pulmonic valve. Great Vessels Normal aortic root. The pulmonary artery is normal size. Normal inferior vena cava. Pericardium/Pleural No pericardial effusion. MMode/2D Measurements & Calculations LVIDd: 4.9 cm IVSd: 0.89 cm Ao root diam: 3.2 cm LVIDs: 3.3 cm LVPWd: 0.90 cm LA dimension: 3.3 cm RVDd: 2.5 cm FS: 34.2 % LAV(MOD-bp): 36.3 ml LA A4 area: 13.4 cm2 RA A4 area: 8.6 cm2 LAV(MOD-bp) Indexed: 19.7 ml/m2 LAV(MOD-sp2): 38.8 ml LAV(MOD-sp4): 32.3 ml Time Measurements MV dec time: 0.31 sec Doppler Measurements & Calculations MV E max len: 47.3 cm/sec Lat Peak E' Len: 9.6 cm/sec Med Peak E' Len: 6.4 cm/sec MV A max len: 66.7 cm/sec E/E' lat: 4.9 E/E' med: 7.4 MV E/A: 0.71 Ao V2 max: 117.8 cm/sec LV V1 max: 95.2 cm/sec Ao max P.6 mmHg LV V1 max P.6 mmHg Interpretation Summary Normal LV size. Left ventricular systolic function is normal. The estimated ejection fraction is 55 %. Transmitral diastolic flow velocities suggest mild (stage 1) diastolic dysfunction (reversed pattern). Bileaflet diffuse mitral valve thickening. Mild mitral valve prolapse. Mild (1+) eccentric mitral valve insufficiency. Ordering Physician: Nish Herrera Referring Physician: RIKKI CEBALLOS Performed By: Nereyda Canales, YEMICS, RVT
== END ==
PROVIDERS: Family Provider Family Medicine; PCP Family Medicine; Visit Provider Internal Medicine Cardiovascular Disease
DX: R00.2 Palpitations (principal)
CPT/HCPCS: 93225; 93226; 93306

== ENCOUNTER → 2018-06-21 07:32 | Outpatient (CLI) | payer BC, SELFPAY ==
[2018-06-21 09:39] LABS: Free T3 2.9 pg/mL (2.18-3.98); T4 Free Direct 1.01 ng/dL (0.76-1.46); Thyroid Stim Hormone (TSH) 0.27 uIU/mL (0.358-3.74)
[2018-06-24 16:09] LABS: Epinephrine, Pl 269 pg/mL (0-62); Norepinephrine, Pl 1003 pg/mL (0-874)
[2018-06-25 11:57] LABS: Dopamine, Pl 46 pg/mL (0-48)
== END ==
PROVIDERS: Family Provider Family Medicine; PCP Family Medicine; Visit Provider Internal Medicine Cardiovascular Disease
DX: E05.90 Thyrotoxicosis, unspecified without thyrotoxic crisis or storm (principal)
CPT/HCPCS: 36415; 82384; 84439; 84443; 84481

== ENCOUNTER → 2018-06-23 07:14 | Outpatient (CLI) | payer BC, SELFPAY ==
--- NOTE | 2018-06-23 07:17 | NM_ITS ---
CLINICAL: 52-year-old male with reported history of clinical hyperthyroidism. I-123 THYROID UPTAKE and SCAN COMPARISON: None available FINDINGS: The patient was administered a 303 uCi I-123 capsule by mouth. The 4-hour I-123 radioactive iodine thyroidal uptake was calculated to be 13.6 % (normal 5 to 25 %). The 24-hour I-123 radioactive iodine thyroidal uptake was calculated to be 33.7 % (normal 5 to 40 %). The I-123 thyroid scan demonstrates homogeneous radiopharmaceutical concentration throughout the right lobe of the U-shaped thyroid gland. A hypofunctioning nodule is demonstrated in the inferior pole the left lobe thyroid colloid. NM/Thyroid Uptake Single or Mult IMPRESSION: 1. Normal 4- and 24-hour I-123 radioactive iodine thyroidal uptakes. 2. The I-123 thyroid scan demonstrates a hypofunctioning nodule at the level of the inferior pole of the left lobe thyroid colloid. Correlation with thyroid ultrasound is recommended for further evaluation. Electronically Signed: Clint Romero DO at 21:55 EDT Tel , Service support ,
== END ==
PROVIDERS: Family Provider Family Medicine; PCP Family Medicine; Visit Provider Family Medicine
DX: E05.90 Thyrotoxicosis, unspecified without thyrotoxic crisis or storm (principal)
CPT/HCPCS: 78012; A9516

== ENCOUNTER → 2018-07-06 12:40 | Outpatient (CLI) | payer BC, SELFPAY | PROVIDERS: Family Provider Family Medicine; PCP Family Medicine; Visit Provider Family Medicine | DX: E05.90 Thyrotoxicosis, unspecified without thyrotoxic crisis or storm (principal); E04.1 Nontoxic single thyroid nodule | CPT/HCPCS: 76536 ==

== ENCOUNTER → 2018-07-13 06:49 | Outpatient (CLI) | payer BC, SELFPAY ==
[2018-07-13 17:53] LABS: Free T3 3.1 pg/mL (2.18-3.98); T4 Free Direct 0.93 ng/dL (0.76-1.46); Thyroid Stim Hormone (TSH) 0.37 uIU/mL (0.358-3.74)
[2018-07-15 08:40] LABS: Thyroid Peroxidase AB 14 IU/mL (0-34)
== END ==
PROVIDERS: Nurse Practitioner; Family Provider Family Medicine; PCP Family Medicine; Visit Provider Family Medicine
DX: E05.90 Thyrotoxicosis, unspecified without thyrotoxic crisis or storm (principal); R82.5 Elevated urine levels of drugs, medicaments and biological substances
CPT/HCPCS: 36415; 74177; 84439; 84443; 84481; 86376; Q9967

== ENCOUNTER → 2018-07-29 14:42 | Outpatient (CLI) | payer BC, SELFPAY ==
--- NOTE | 2018-07-29 10:30 | ASPSI_PTH ---
PATIENT: NICKIE BROWNE [facility] U#:[id number] AGE/SX: 60/M ROOM: RE07/29/[address]: Dr. Andrew Rodriguez MD : 1965 BED: DIS: SPEC #: [id number] RECD: 07/29/18 13:39 STATUS: MAMADOU DOWNEYMarine #: [id number] CATHLEEN: 07/29/18 10:[address]: Andrew Rodriguez DEPT: CYTOLOGY RECD BY: Shalonda Vale ENTERED: 07/29/18 15:23 SP TYPE: ASP NATE LIGHT DR: Dr. Evelia Bains MD Tissues: Thyroid gland, NOS Procedures: Pap Stain (control) Surgery Specimen Level IV Cell Block Cytospin Fluid Cytology Other HEADER OPERATION: Fine needle aspiration PRE-OP DIAGNOSIS: Nontoxic multinodular goiter E04.2 TISSUE SUBMITTED: Fine needle aspiration left thyroid nodule DIAGNOSIS CYTOLOGY Left thyroid nodule, FNA (cytospin and cell block): Consistent with benign follicular nodule. Adequate for evaluation. SJ:rg 07/30/18 COMMENT Correlation with clinical, radiologic findings and appropriate follow up are necessary. CYTOLOGY STUDY Slides are reviewed. CYTOLOGY GROSS Received is 45 ml of red, cloudy fluid labeled with the patient's name and and designated per the requisition as left thyroid. Submitted for cytology preparation including cell block. / 07/29/18 TC:5 CPT: 60866, 81234
== END ==
PROVIDERS: Family Provider Family Medicine; PCP Family Medicine; Visit Provider Otolaryngology
DX: E04.2 Nontoxic multinodular goiter (principal)
CPT/HCPCS: 88108; 88161; 88305

== ENCOUNTER 2018-08-27 10:26 | Observation (INO) | payer BC, SELFPAY ==
[2018-08-27] VITALS (11 sets, daily range): BP systolic 127–155; BP diastolic 75–99; PULSE 76–115; RESP 14–16; TEMP 36.4–37.2; O2SAT 93–97; BMI 27.5; BMI 27.3
--- NOTE | 2018-08-27 | THYROID_PTH ---
PATIENT: NICKIE BROWNE LOC: [facility] U#:[id number] AGE/SX: 53/M ROOM: [facility] – [place] RE08/27/[address]: Dr. Andrew Rodriguez MD : 1965 BED: 1 DIS: 08/28/2018 SPEC #: [id number] RECD: 08/27/18 08:54 STATUS: MAMADOU REQ #: [id number] CATHLEEN: 08/27/18 00:[address]: Andrew Rodriguez DEPT: SURGICAL PATHOLOGY RECD BY: Shalonda Vale ENTERED: 08/27/18 10:46 SP TYPE: THYROID OTHR DR: Dr. Evelia Baisn MD Tissues: A - Thyroid gland, NOS B - Thyroid gland, NOS Procedures: Frozen Section (charge) Surgery Specimen Level V Frozen (no charge) HEADER OPERATION: Thyroidectomy PRE-OP DIAGNOSIS: Nontoxic multinodular goiter TISSUE SUBMITTED: A - Left thyroid lobe for FS at 0850, B - Right thyroid lobe with substernal component for FS at 0948 FROZEN SECTION DIAGNOSIS A. Left thyroid lobe, lobectomy: Multinodular goiter. B. Right thyroid lobe with substernal component, lobectomy: Multinodular goiter. SJ:leah 08/27/18 MICROSCOPIC DIAGNOSIS A. Left thyroid lobe, lobectomy: Multinodular goiter. B. Right thyroid lobe with substernal component, lobectomy: Multinodular goiter. SJ:leah 08/30/18 COMMENT Please make reference to previous specimen ([id number]), left thyroid nodule, FNA with diagnosis of consistent with benign follicular nodule. MICROSCOPIC DESCRIPTION Slides are reviewed. GROSS DESCRIPTION A - Received fresh for frozen section diagnosis labeled with the patient's name is a specimen designated left thyroid lobe. The specimen consists of a multinodular left thyroid lobectomy specimen weighing 37.2 gm and measuring 8 x 6 x 3 cm. No external parathyroid tissue is identified. The specimen is inked as follows: anterior surface - black, posterior surface - blue. Serial sections reveal multiple nodules with the largest nodule measuring 2 cm in greatest dimension. Sections of these nodules reveal colloidy cut surfaces. A section is submitted for frozen section diagnosis. Integration Architect sections are submitted in 12 cassettes. Cassette 1 contains the frozen section of the largest nodule. B - Received fresh for frozen section diagnosis labeled with the patient's name is a specimen designated right thyroid lobe with substernal component. The specimen consists of a thyroid lobectomy specimen weighing 37.4 gm and measuring 11 x 5 x 3.5 cm. No external parathyroid tissue is identified. The specimen is inked as follows: anterior - black, posterior - blue. Sections reveal multinodular cut surfaces. The largest nodule measures 2 cm in greatest dimension. A section from the largest nodule is submitted for frozen section diagnosis. Integration Architect sections are submitted in 12 cassettes. Cassette 1 contains the frozen section. / SJ:leah 08/27/18 TC:5 CPT: 04250 x2, 34341 x2
[2018-08-27 06:35] LABS: Anion Gap 7 (5-15); BUN 13 mg/dL (7-18); BUN/Creat Ratio 12.7 RATIO (10-20); Calcium,Total 8.7 mg/dL (8.5-10.1); Chloride 107 mmol/L (98-107); Creatinine, Serum 1.02 mg/dL (0.70-1.30); EST Glomerular Filtration Rate 82 mL/min (>60); Est Glom Filt Rate - Afr Amer 99 mL/min (>60); Estimated Creatinine Clearance 77.32 ml/min; Glucose 103 mg/dL (74-106); Potassium 4.1 mmol/L (3.5-5.1); Sodium Level 140 mmol/L (136-145)
--- NOTE | 2018-08-27 10:18 | PCM.OPRPT ---
Problem List (1) Multinodular goiter Status: Chronic Comment: No issues with hormones surrounding male/female reproductive. No headaches, no flushing. Epi and norepi not extreme values. TSH values minimal suppression one value. Report of Operation Date of Procedure: 08/27/18 Pre-Operative Diagnosis: Multinodular goiter with substernal component Post-Operative Diagnosis: Same Surgery/Procedure Performed:: Total thyroidectomy with recurrent laryngeal nerve monitoring Description of Surgical Findings:: Clint is a 53-year-old male who presents for evaluation of multinodular goiter in the setting of symptomatic palpitations and findings of an elevated epinephrine level. Ultrasonic evaluation showed a large multilobulated irregular shaped goiter as thyroid and endocrine evaluation with 24-hour urine did not suggest other systemic disease given the large size and irregular shape of the goiter excision was offered for definitive evaluation and hopeful symptom improvement. The patient was eager to proceed. The risks, alternatives, potential benefits, and complications were discussed at length and any questions answered to the patient and/or caregiver's satisfaction. Witnessed informed consent was obtained in the office, and the patient and/or caregiver was agreeable to proceed. Procedure went as follows: The patient was identified in the preoperative holding and brought to the operating room, placed under general anesthesia and intubated. The neuro monitoring electrodes were then placed in the chest and confirmed to be operational in accordance with the adjunct writing instructor's directions to allow for recurrent laryngeal nerve monitoring. The neck was then prepped and draped in usual sterile fashion and the planned skin incision was marked 2 finger breadths above the sternal notch with a marking pen. The incisional line was then injected with 1% lidocaine with 100,000 epinephrine for a total of 8 cc. After allowing for vasoconstriction, a 15 blade scalpel was used to make an incision 10 cm in length through the skin and subcutaneous tissues and platysma. A subplatysmal flap was then elevated superiorly and inferiorly to allow placement of the self-retaining thyroid retractor. The strap muscles were then divided in the midline and beginning on the left side the thyroid lobe dissected in a sub-capsular fashion. The inferior, middle, and superior thyroid vessels were individually clamped and ligated with a combination of 3-0 silk sutures and vascular clips. The parathyroid glands were identified along the inferior vascular pedicle and preserved the recurrent laryngeal nerve was also identified and followed to its nerve entry point and the thyroid gland dissected free of its attachments to the trachea at Broyle's ligament. This was then transected at the isthmus and sent for pathologic evaluation. Attention was then turned to the contralateral side where similar dissection was carried out and completed again with preservation of the laryngeal nerve and parathyroid glands. There were noted to be multiple lobulated extensions from the main body of the gland and these were dissected free from the surrounding nervous and vascular structures. Additionally there is noted to be a large substernal component which was dissected free from the upper mediastinum with blunt dissection with a gloved finger and delivered into the neck for resection with the main specimen. The wound bed was then irrigated saline solution and examined for sites of bleeding. No significant bleeding was encountered and #7 flat drains were then placed into each tracheoesophageal groove and brought out through a separate stab incision in the neck and secured with 3-0 silk sutures. The strap muscles were then re-approximated in the midline with a running 3-0 Vicryl suture followed by interrupted 3-0 Vicryl sutures to close the platysma and subcutaneous tissues. A 5-0 Monocryl was then used to close the skin followed by Steri-Strips completing the procedure. Anesthesiologist: Andrew Fernandez Special Medications: none Specimen's removed: total thyroid Drains: 2 #7 flat ODESSA Estimated Blood Loss (mL): 20 mL Fluids Replaced: 1700 mL Grafts/Implants Used: none - Complications none
--- NOTE | 2018-08-27 10:23 | OP.PCM_ITS ---
Problem List (1) Multinodular goiter Status: Chronic Comment: No issues with hormones surrounding male/female reproductive. No headaches, no flushing. Epi and norepi not extreme values. TSH values minimal suppression one value. Report of Operation Date of Procedure: 08/27/18 Pre-Operative Diagnosis: Multinodular goiter with substernal component Post-Operative Diagnosis: Same Surgery/Procedure Performed:: Total thyroidectomy with recurrent laryngeal nerve monitoring Description of Surgical Findings:: Clint is a 53-year-old male who presents for evaluation of multinodular goiter in the setting of symptomatic palpitations and findings of an elevated epinephrine level. Ultrasonic evaluation showed a large multilobulated irregular shaped goiter as thyroid and endocrine evaluation with 24-hour urine did not suggest other systemic disease given the large size and irregular shape of the goiter excision was offered for definitive evaluation and hopeful symptom improvement. The patient was eager to proceed. The risks, alternatives, potential benefits, and complications were discussed at length and any questions answered to the patient and/or caregiver's satisfaction. Witnessed informed consent was obtained in the office, and the patient and/or caregiver was agreeable to proceed. Procedure went as follows: The patient was identified in the preoperative holding and brought to the operating room, placed under general anesthesia and intubated. The neuro monitoring electrodes were then placed in the chest and confirmed to be operational in accordance with the coffee sommelier's directions to allow for recurrent laryngeal nerve monitoring. The neck was then prepped and draped in usual sterile fashion and the planned skin incision was marked 2 finger breadths above the sternal notch with a marking pen. The incisional line was then injected with 1% lidocaine with 100,000 epinephrine for a total of 8 cc. After allowing for vasoconstriction, a 15 blade scalpel was used to make an incision 10 cm in length through the skin and subcutaneous tissues and platysma. A subplatysmal flap was then elevated superiorly and inferiorly to allow concepcion cement of the self-retaining thyroid retractor. The strap muscles were then divided in the midline and beginning on the left side the thyroid lobe dissected in a sub-capsular fashion. The inferior, middle, and superior thyroid vessels were individually clamped and ligated with a combination of 3-0 silk sutures and vascular clips. The parathyroid glands were identified along the inferior vascular pedicle and preserved the recurrent laryngeal nerve was also identified and followed to its nerve entry point and the thyroid gland dissected free of its attachments to the trachea at Broyle's ligament. This was then transected at the isthmus and sent for pathologic evaluation. Attention was then turned to the contralateral side where similar dissection was carried out and completed again with preservation of the laryngeal nerve and parathyroid glands. There were noted to be multiple lobulated extensions from the main body of the gland and these were dissected free from the surrounding n ervous and vascular structures. Additionally there is noted to be a large substernal component which was dissected free from the upper mediastinum with blunt dissection with a gloved finger and delivered into the neck for resection with the main specimen. The wound bed was then irrigated saline solution and examined for sites of bleeding. No significant bleeding was encountered and #7 flat drains were then placed into each tracheoesophageal groove and brought out through a separate stab incision in the neck and secured with 3-0 silk sutures. The strap muscles were then re-approximated in the midline with a running 3-0 Vicryl suture followed by interrupted 3-0 Vicryl sutures to close the platysma and subcutaneous tissues. A 5-0 Monocryl was then used to close the skin followed by Steri-Strips completing the procedure. Anesthesiologist: Andrew Fernandez Special Medications: none Specimen's removed: total thyroid Drains: 2 #7 flat ODESSA Estimated Blood Loss (mL): 20 mL Fluids Replaced: 1700 mL Grafts/Implants Used: none - Complications none
--- NOTE | 2018-08-27 10:26 | DCINST_ITS ---
You will use the following diet at home:: No restrictions Discharge Activity: Return to Normal Activity, May not drive while taking narco tic pain medications. Call your doctor if your incision/area has: Sudden Increased Bleeding, Increased Pain/ Swelling, Increased Redness, Swelling at the incision site Call your doctor if you observe: Fever of 101 or Higher, Uncontrolled pain Cleanse incision/area with: Keep Dressing Clean & Dry Allergies/Adverse Reactions: Allergies No Known Allergies Allergy (Verified 08/26/18 09:57) Medications to take at Discharge RX: Meloxicam [Mobic] 15 mg PO DAILY 07/18/16 RX: Hydroxychloroquine [Plaquenil] 400 mg PO QHS 03/01/17 RX: Leflunomide [Arava] 20 mg PO QHS 03/01/17 glucosamine sulfate 500 mg tablet 1,000 mg PO QDAY tab 07/13/18 loratadine 10 mg tablet 10 mg PO QDAY 07/13/18 metoprolol tartrate 50 mg tablet 50 mg PO QDAY tab 07/13/18 mometasone 50 mcg/actuation nasal spray 2 spray INTRANASAL QDAY 07/13/18 Multivitamin [Multiple Vitamins] 1 each PO DAILY 08/26/18 RX: Cranberry 500 mg PO DAILY 08/26/18 RX: Prednisone 10 mg PO PRN PRN 08/26/18 Primary Care Physician: Evelia Bains MD [Primary Care Provider] - Test Results: Test results from this visit will be discussed in further detail at your follow- up appointment, if applicable. Please Follow Up With: Andrew Rodriguez MD When: 2 weeks
[2018-08-27 10:36] LABS: Bedside Glucose 132 mg/dL (70-110)
[2018-08-27 11:25] LABS: Calcium,Total 8.4 mg/dL (8.5-10.1)
[2018-08-27] MEDS: Ibuprofen 400 MG Tablet PO ×3 (13:09→23:10)
[2018-08-27] MEDS: Lactated Ringers 1,000 ML 120 ML IV (17:51)
[2018-08-28] MEDS: Lactated Ringers 1,000 ML 120 ML IV (02:15)
[2018-08-28 02:16] VITALS: BP 128/78; PULSE 80; RESP 14; TEMP 36.6; O2SAT 94
[2018-08-28] MEDS: Ibuprofen 400 MG Tablet PO (06:02)
[2018-08-28 08:15] VITALS: BP 126/80; PULSE 78; RESP 16; TEMP 36.6; O2SAT 97
[2018-08-28 08:27] LABS: Calcium,Total 8.4 mg/dL (8.5-10.1)
--- NOTE | 2018-08-28 09:10 | PCM.PN.SRG ---
Subjective: Doing well, denies incisional pain, janny-oral tingling or numbness. Objective: Well appearing, neck incision clean, dry, and intact. - Physical Exam General: Alert, Oriented x3, - - normal voicing HEENT: Atraumatic, PERRLA, EOMI Oral: Moist Mucosa Neck: Supple, Trachea Midline, - - incision intact, minimal drain output, removed at bedside Lungs: Normal air movement Psych/Mental Status: Normal Affect, Alert and oriented to time, place, person, mood and affect Vital Signs Temp Pulse Resp BP Pulse Ox 97.9 F 78 16 126/80 H 97 08/28/18 08:15 08/28/18 08:15 08/28/18 08:15 08/28/18 08:15 08/28/18 08:15 Oxygen Delivery Method Room Air Weight: 77.3 kg Body Mass Index (BMI) 27.3 Finger Stick Blood Glucose 132 Intake and Output for Last 24 Hours 08/26/18 08/27/18 08/28/18 23:59 23:59 23:59 Intake Total 2916 / 2916 2233 / 2233 Output Total 32 / 32 Balance 2884 / 2884 2233 / 2233 Laboratory Tests Past 24 Hrs 08/27/18 08/28/18 11:02 06:55 Calcium 8.4 L 8.4 L POC Glucose 08/27/18 10:28 POC Glucose 132 H Medical Necessity - Tobacco Use Smoking Status: Never smoker Assessment/Plan All Active Problems (Last Reviewed 07/20/18 @ 12:43 by Ana Paula Oropeza) Abnormal thyroid function test (Acute) Rapid palpitations (Acute) Doing well s/p total thyroidectomy. No hypertension overnight. Calcium stable at 8.4, asymptomatic and observation for now advised with recovery expected. Drains removed with discharge this AM.
== END 2018-08-28 09:50 | disposition home or self-care (01) ==
LOC: MS3 08-30 13:35 → SDC 08-30 13:35
PROVIDERS: Admitting Provider Otolaryngology; Family Provider Family Medicine; PCP Family Medicine; Referring Provider Otolaryngology; Visit Provider Otolaryngology
PROC: (CPT 60240; principal; 2018-08-27 07:10)
DX: E04.2 Nontoxic multinodular goiter (principal); I10 Essential (primary) hypertension; Z23 Encounter for immunization; Z79.899 Other long term (current) drug therapy
CPT/HCPCS: 60240; 36415; 80048; 82310; 82962; 88307; 88331; 96360; 96361; 97802; 99218; J7120; 90686; G0378; G0379; J2405; J3490

== ENCOUNTER → 2018-08-31 11:50 | Outpatient (CLI) | payer BC, SELFPAY ==
[2018-08-31 12:43] LABS: Anion Gap 9 (5-15); BUN 12 mg/dL (7-18); BUN/Creat Ratio 10.7 RATIO (10-20); Calcium,Total 8.5 mg/dL (8.5-10.1); Chloride 102 mmol/L (98-107); Creatinine, Serum 1.12 mg/dL (0.70-1.30); EST Glomerular Filtration Rate 73 mL/min (>60); Est Glom Filt Rate - Afr Amer 89 mL/min (>60); Glucose 132 mg/dL (74-106); Potassium 4.1 mmol/L (3.5-5.1); Sodium Level 137 mmol/L (136-145)
[2018-08-31 12:55] LABS: PTHIN 21.2 pg/mL (18.4-80.1)
== END ==
PROVIDERS: Family Provider Family Medicine; PCP Family Medicine; Referring Provider Otolaryngology; Visit Provider Otolaryngology
DX: E04.2 Nontoxic multinodular goiter (principal); R25.1 Tremor, unspecified
CPT/HCPCS: 36415; 80048; 83735; 83970

== ENCOUNTER → 2018-09-21 12:15 | Outpatient (CLI) | payer BC, SELFPAY ==
--- NOTE | 2018-09-21 12:31 | NM_ITS ---
CLINICAL: 53-year-old male with history of evaluation of the serum catecholamine levels. I-123 METAIODOBENZYLGUANIDINE (MIBG) SCINTIGRAPHY COMPARISON: CT of the abdomen-pelvis report 07/13/2018 FINDINGS: Following the intravenous administration of 10.5 mCi of I-123 MIBG, whole body acquisitions obtained at 24 hours, spot planar projections of the chest, abdomen and pelvis obtained at 48 hours post radiopharmaceutical administration reveal: 1. Asymmetric increased radiopharmaceutical concentration is identified in the right anterior neck most consistent with visualization of the right lobe of thyroid colloid defined on thyroid ultrasound dated 07/06/2018. 2. Physiologic distribution of the radiopharmaceutical appears evident in the hepatic and splenic parenchyma, the right and left adrenal medulla, the urinary bladder. NM/Tumor Localization Multi Areas IMPRESSION: 1. NEGATIVE I-123 METAIODOBENZYLGUANIDINE (MIBG) SCINTIGRAPHY 2. There is no current typical scintigraphic evidence of paraganglioma, pheochromocytoma on the current evaluation. Electronically Signed: Clint Romero DO at 22:21 EDT Tel , Service support ,
== END ==
PROVIDERS: Family Provider Family Medicine; PCP Family Medicine; Referring Provider Family Medicine; Visit Provider Family Medicine
DX: R82.5 Elevated urine levels of drugs, medicaments and biological substances (principal)
CPT/HCPCS: 78801; A9582

== ENCOUNTER → 2018-09-27 07:27 | Outpatient (CLI) | payer BC, SELFPAY ==
--- NOTE | 2018-09-27 07:29 | CT_ITS ---
STUDY: CT CHEST WITH CONTRAST REASON FOR EXAM: Male, 53 years old. Ankle trauma, elevated epinephrine thyroidectomy RADIATION DOSAGE (If Supplied By Facility): CTDIvol = ( ) mGy, DLP = ( 331.51 ) mGycm TECHNIQUE: Transaxial imaging was performed following intravenous administration of 100 ml of matrix 300 contrast material. Multiplanar coronal and sagittal images were reformatted. Individualized dose optimization techniques were used for this CT. COMPARISON: None. FINDINGS: There is postoperative change status post thyroidectomy. There is a mass anterior to the carotid artery lateral to the thyroid tissue that measures 2.2 x 1.1 cm in the transverse view. It appears to be hugging or likely a bilobed structure hugging the right side proximal carotid artery at the bifurcation of the subclavian. See image #74 of the coronal views and image #13 of the axial views. The right limb of the peripherally enhancing low attenuating central structure measures 2.2 cm. On the left lobe measuring 2.4 cm. There is a trace focus of groundglass opacity within the left lower lobe posteriorly. There is a subtle focus of nodular density within the left lower lobe measuring 4.9 mm. There is also a small focal nodule in this aspect of the left lower lobe best seen on the sagittal view in 119 series 602. There is a subtle focus of groundglass opacity within the right upper lobe image #99 of the coronal views were made of the axial views. There is no demonstrated pleural abnormality. Normal heart and pericardium. There is a lymph node in the AP window left measuring 9.9 mm. There is a lymph node high in the gerri measuring 6.9 mm. Normal hilar regions. Normal enhanced pulmonary arteries. Normal aorta arch and descending thoracic aorta. There are multilevel Schmorl's nodes. There is degenerative change of the thoracic spine. The adrenal glands appear grossly normal. CT/Chest WITH Contrast IMPRESSION: There is a hypodense mass with peripheral enhancement at the base of the common carotid artery just at the branch point of the subclavian and the common carotid artery. This is approximately lateral to the thyroid. This is a mass that is peripherally enhancing and not necessarily diffusely enhancing. Could consider ectopic thyroid material, atypical pheochromocytoma, para ganglioma, schwannoma, could also consider metastatic carcinoid. Peripheral enhancing masses with central low attenuation can be associated with necrotic tumors including squamous cell carcinoma. Recommend consideration for neck MRI with gadolinium. There is nonspecific areas of patchy and was groundglass opacities as detailed above suspicious most likely atypical infiltrates however early metastatic disease in the appropriate clinical setting could have this appearance. Electronically Signed: Lizeth Traylor MD at 19:20 EST Tel , Service support ,
--- NOTE | 2018-09-27 07:29 | CT_ITS ---
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 RADIATION DOSAGE (If Supplied By Facility): CTDIvol = ( 16.99 ) mGy, DLP = ( 1317.32 ) mGycm TECHNIQUE: The patient was scanned in a multi-detector CT scanner. High resolution transaxial imaging was performed following intravenous administration of 100 ml of Isovue 300 contrast material. Sagittal and coronal images were reconstructed. Individualized dose optimization techniques were used for this CT. COMPARISON: None. FINDINGS: Normal bilateral parotid glands. Normal bilateral golf club head former spaces. Normal bilateral parapharyngeal spaces. Normal bilateral carotid spaces. Normal bilateral sublingual and submandibular glands and spaces. Normal visualized nasopharynx. Normal retropharyngeal space. Normal perivertebral space. Normal visualized bilateral faucial tonsils. The visualized tongue, tongue base and oropharynx are normal. The visualized cervical lymph nodes (levels I-) are within normal size limits, and maintain normal morphology. There is no demonstrated solid or cystic mass lesion. There is no abnormal contrast enhancement. Normal epiglottis, bilateral vallecula and hypopharynx. The pre-epiglottic and paraglottic adipose spaces are normal. Normal visualized bilateral piriform sinuses, aryepiglottic folds, vocal cords, and arytenoid-cricoid articulations. Normal subglottic trachea. Surgical clips are seen in the region of the thyroid gland. There is a 2.3 cm x 1.4 cm x 3.2 cm inhomogeneously enhancing cystic and solid mass in the right supraclavicular region. This lies cephalad to the medial aspect of the right clavicle. This corresponds to the increased uptake on the nuclear medicine MIBG examination. Normal visualized pulmonary apices. Partial opacification of the ethmoid sinuses bilaterally. There is multilevel degenerative changes of the cervical spine. CT/Soft Tissue Neck WITH Contrast IMPRESSION: There is a 2.3 cm x 1.4 cm x 3.2 cm inhomogeneously enhancing cystic and solid mass in the right supraclavicular region adjacent to the medial right clavicle. This corresponds to the abnormality seen on the nuclear medicine MIBG scan. The patient is status post thyroidectomy. Electronically Signed: Shaan Reese MD at 15:58 EST Tel [phone], Service support ,
== END ==
PROVIDERS: Family Provider Family Medicine; PCP Family Medicine; Referring Provider Family Medicine; Visit Provider Family Medicine
DX: R82.5 Elevated urine levels of drugs, medicaments and biological substances (principal)
CPT/HCPCS: 70491; 71260; Q9967

== ENCOUNTER → 2018-10-09 09:54 | Outpatient (CLI) | payer BC, SELFPAY ==
[2018-08-27 11:36] VITALS: BMI 27.3
[2018-10-09 10:58] LABS: Absolute Lymphocyte Count 1.83 X10^3/ul (0.83-4.51); Absolute Neutrophil Count 4.8 X10^3/uL (2.0-7.7); Basophil# 0.06 X10^3/uL; Basophil% 0.7 % (0-1); Eosinophil# 0.41 X10^3/uL; Eosinophils% 5.1 % (0-5); Hematocrit 44.2 % (40-54); Hemoglobin 14.7 g/dl (13.0-16.5); Lymphocyte # 1.83 X10^3/ul (4.0); Lymphocyte % 22.8 % (19-41); Mean Corp Hgb Conc 33.3 g/gl (32-36); Mean Corpuscular Hgb 29.2 pg (27.0-32.0); Mean Corpuscular Volume 87.9 fL (80-94); Mean Platelet Vol. 10.2 fl (6.2-12.0); Monocyte% 11.2 % (0-10); Neutrophil # 4.81 X10^3/uL (2.7-7.7); Neutrophil % 60.1 % (47-70); Platelet Count 287 K/mm3 (150-450); RBC Distribution Width CV 12.6 % (11.6-14.6); RBC Distribution Width SD 40.3 fl (35.1-43.9); Red Blood Count 5.03 M/mm3 (4.6-6.2)
[2018-10-09 10:59] LABS: POSITIVE COUNT NO; POSITIVE DIFFERENTIAL NO; POSITIVE MORPHOLOGY NO
[2018-10-09 11:27] LABS: AST(SGOT) 40 U/L (15-37); Alanine Aminotransfer ALT/SGPT 50 U/L (16-61); Albumin, Serum 3.9 g/dL (3.2-5.0); Alkaline Phosphatase 81 U/L (45-117); Bilirubin, Direct 0.08 mg/dL (0.00-0.30); Creatinine, Serum 1.11 mg/dL (0.70-1.30); EST Glomerular Filtration Rate 74 mL/min (>60); Est Glom Filt Rate - Afr Amer 90 mL/min (>60); Globulin 3.6 g/dL (2.2-4.2); Protein, Total 7.5 g/dL (6.4-8.2); T4 Total, Thyroxin 10.3 ug/dL (4.5-12.1)
[2018-10-09 12:56] LABS: T3 Total - Triiodothyronine 0.97 ng/mL (0.6-1.81)
== END ==
PROVIDERS: Family Provider Family Medicine; PCP Family Medicine; Referring Provider Otolaryngology; Visit Provider Otolaryngology
DX: E89.0 Postprocedural hypothyroidism (principal); Z79.899 Other long term (current) drug therapy
CPT/HCPCS: 36415; 80076; 82565; 84436; 84443; 84480; 85025

== ENCOUNTER → 2018-11-06 09:45 | Outpatient (CLI) | payer BC, SELFPAY ==
[2018-08-27 11:36] VITALS: BMI 27.3
[2018-11-06 11:31] LABS: Thyroid Stim Hormone (TSH) 5.89 uIU/mL (0.358-3.74)
--- OUTSIDE RECORDS SUMMARY | 2019-02-09 09:16 | XMS RPT_ITS | Clinical Summary ---
:1965 Author Organization [facility] Address [address] [place] [address] Phone Care Team Providers Name Role Phone Rosa Mcnamara Unavailable Conditions or Problems Problem Name Problem Onset Status Entry Provider Comment Standard Annotate Code Date Date Description Sprain of S63.650A Active Omi S Sprain of metacarpophala (ICD-10-C 06/16 06/18 Cheo metacarpophalange ngeal joint of M) al joint of right right index index finger, finger, initial encounter initial encounter Hand pain, 91696789 Active Omi S Hand pain left (SNOMED 06/16 06/[address]) Rotator cuff S43.429A Active Omi S Sprain of (capsule) (ICD-10-C 03/29 04/02 Cheo unspecified sprain M) rotator cuff capsule, initial encounter IMPINGEMENT, 726.2 Active Omi S Other affections SHOULDER (ICD-9-CM 03/29 04/02 Cheo of shoulder ) region, not elsewhere classified Shoulder pain, 719.41 Active Rosa Parrish Pain in joint left (ICD-9-CM 03/29 03/29 Mcnamara involving ) shoulder region Unspecified 87212278 Active Omi S Derangement of internal (SNOMED 06/08 06/[address] [address]) knee GANGLION CYST, M67.40 Active Omi S Ganglion, HAND (ICD-10-C 06/08 06/08 Cheo unspecified site M) PAIN, KNEE 50911944 Active Omi S Knee pain (SNOMED 06/08 06/[address]) PAIN, HAND M79.643 Active Omi S Pain in (ICD-10-C 06/08 06/08 [facility]o unspecified hand M) Medications Medication Instructions Start Date Stop Date Generic Name [facility] Provider PREDNISONE 10 as directed PREDNISONE [id number] Omi S MG TABS Cheo MELOXICAM 15 MG as directed MELOXICAM 46448065451 Omi S TABS Cheo FOLIC ACID TABS as directed FOLIC ACID 36206342256 Omi S TABS Cheo Medications Administered No information available. Allergies, Adverse Reactions, Alerts Observed no known allergies at Results Date Name Value Unit Range Flag Description Office Visit MEDS REVIEW Done Documentation of current medications (procedure) SMOK STATUS Never smoker Tobacco use [facility] Plan of Care Type Date Detail Appointment 03:00 PM María Hurd, [address], [address], [place], [address], Referral [facility], [address] [place] [address], [phone] Referral Physical Therapy [facility], [address] [place] [address], [phone] Pending order X-Ray, Hand Pending order MRI Joint Upper Extremity Pending order X-Ray, Shoulder Pending order X-Ray, Hand Patient education LIGAMENT%20SPRAIN Patient education GANGLION%20CYSTS Procedures Code Procedure Name Date Entry Date [id number] SNOMED-CT: 013329266 Smoking Cessation Counseling [id number] SNOMED-CT: 842672633138321 Current Medications Documented [id number] SNOMED-CT: 987261578 Smoking Cessation Counseling SCT-[id number] SNOMED-CT: 877355699754250 Current Medications Documented [id number] SNOMED-CT: 977956685811209 Current Medications Documented [id number] SNOMED-CT: 957599319 Smoking Cessation Counseling SCT-[id number] SNOMED-CT: 886190826272738 Current Medications Documented [id number] SNOMED-CT: 966838129 Smoking Cessation Counseling CPT-33328 Arthrocentesis, aspiration/injection; major joint shoulder, hip, knee CPT-39633 Arthrocentesis, aspiration/injection; major joint shoulder, hip, knee Vital Signs Date Name Value Unit Description BMI (Body Mass Index) 23.77 kg/m2 Body Mass Index [Ratio] Weight Measured 161 [lb_av] weight E&M - 3141-9 BP Diastolic 80 mm[Hg] blood pressure, diastolic - 8462-4 BP Systolic 119 mm[Hg] blood pressure, systolic - 8480-6 Height 69 [in_us] height E&M - 8302-2
--- OUTSIDE RECORDS SUMMARY | 2019-02-09 09:16 | XMS RPT_ITS | Clinical Summary ---
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 Sprain of S63.650A Active Omi S Sprain of metacarpopha (ICD-10-CM 06/16 06/18 Cheo metacarpophalang langeal ) eal joint of joint of right index right index finger, initial finger, encounter initial encounter Hand pain, 13990634 Active Omi S Hand pain left (SNOMED 06/16 06/[address]) Rotator cuff S43.429A Active Moi S Sprain of (capsule) (ICD-10-CM 03/29 04/02 Cheo unspecified sprain ) rotator cuff capsule, initial encounter IMPINGEMENT, 726.2 Active Omi S Other affections SHOULDER (ICD-9-CM) 03/29 04/02 Cheo of shoulder region, not elsewhere classified Shoulder 719.41 Active Rosa N Pain in joint pain, left (ICD-9-CM) 03/29 03/29 Mcnamara involving shoulder region Unspecified 12117431 Active Omi S Derangement of internal (SNOMED 06/08 06/[address]) of knee GANGLION M67.40 Active Omi S Ganglion, CYST, HAND (ICD-10-CM 06/08 06/08 Cheo unspecified site ) PAIN, KNEE 14314460 Active Omi S Knee pain (SNOMED 06/08 06/[address]) PAIN, HAND M79.643 Active Omi Choe Pain in (ICD-10-CM 06/08 06/08 Cheo unspecified hand ) Medications Medication Instructions Start Stop Generic Name NDC Provider Date Date VOLTAREN 1 % apply DICLOFENAC SODIUM 91481322547 [place] GEL topically Ch[place]lli the left cmc jt 3-4 times daily as needed for pain PLAQUENIL 200 HYDROXYCHLOROQUINE 80526226932 [place] MG TABS /30 SULFATE Chicorelli MULTIVITAMIN MULTIPLE 50512101398 [place] ADULT TABS /30 VITAMINS-MINERALS Chicorelli FOLIC ACID as directed FOLIC ACID TABS 75886432106 Omi S TABS /17 [place] FOLIC ACID as directed FOLIC ACID TABS 09778194878 [place] TABS /17 12/22 [place]lli PREDNISONE 10 as directed PREDNISONE 74479708744 Omi S MG TABS / Cheo MELOXICAM 15 as directed MELOXICAM [id number] Omi S MG TABS / Cheo Medications Administered No information available. Allergies, Adverse Reactions, Alerts Observed no known allergies at Results Date Name Value Unit Range Flag Description Office Visit MEDS REVIEW Done Documentation of current medications (procedure) SMOK STATUS Never smoker Tobacco smoking status HIIS Plan of Care Type Date Detail Referral [facility], [address] [place] [address], [phone] Referral [facility], [address] [place] [address], [phone] Pending order X-Ray, Hand Pending order MRI Joint Upper Extremity Pending order X-Ray, Shoulder Pending order X-Ray, Hand Patient education LIGAMENT%20SPRAIN Patient education GANGLION%20CYSTS Procedures Code Procedure Name Date Entry Date [facility]-[id number] SNOMED-CT: 745244764 Smoking Cessation Counseling SCT-[id number] SNOMED-CT: 622919331059723 Current Medications Documented [id number] SNOMED-CT: 683747374 Smoking Cessation Counseling SCT-[id number] SNOMED-CT: 527968537543455 Current Medications Documented SCT-[id number] SNOMED-CT: 520669513615881 Current Medications Documented SCT-[id number] SNOMED-CT: 094734406 Smoking Cessation Counseling SCT-600035168295058 SNOMED-CT: 252320268900027 Current Medications Documented SCT-[id number] SNOMED-CT: 035867387 Smoking Cessation Counseling CPT-72634 Arthrocentesis, aspiration/injection; major joint shoulder, hip, knee CPT-79094 Arthrocentesis, aspiration/injection; major joint shoulder, hip, knee [...]
--- OUTSIDE RECORDS SUMMARY | 2019-02-09 09:16 | XMS RPT_ITS | Clinical Summary ---
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 Sprain of S63.650A Active Omi S Sprain of metacarpopha (ICD-10-CM 06/16 06/18 Cheo metacarpophalang langeal ) eal joint of joint of right index right index finger, initial finger, encounter initial encounter Hand pain, 33372082 Active Omi S Hand pain left (SNOMED 06/16 06/[address]) Rotator cuff S43.429A Active Omi S Sprain of (capsule) (ICD-10-CM 03/29 04/02 Cheo unspecified sprain ) rotator cuff capsule, initial encounter IMPINGEMENT, 726.2 Active Omi S Other affections SHOULDER (ICD-9-CM) 03/29 04/02 Cheo of shoulder region, not elsewhere classified Shoulder 719.41 Active Rosa N Pain in joint pain, left (ICD-9-CM) 03/29 03/29 Mcnamara involving shoulder region Unspecified 66462339 Active Omi S Derangement of internal (SNOMED 06/08 06/[address]) of knee GANGLION M67.40 Active Omi S Ganglion, CYST, HAND (ICD-10-CM 06/08 06/08 Cheo unspecified site ) PAIN, KNEE 34378237 Active Omi S Knee pain (SNOMED 06/08 06/[address]) PAIN, HAND M79.643 Active Omi Choe Pain in (ICD-10-CM 06/08 06/08 Cheo unspecified hand ) Medications Medication Instructions Start Stop Generic Name NDC Provider Date Date VOLTAREN 1 % apply DICLOFENAC SODIUM 94174780809 [place] GEL topically [place] the left cmc jt 3-4 times daily as needed for pain PLAQUENIL 200 HYDROXYCHLOROQUINE 92546375051 [place] MG TABS /30 SULFATE [place] MULTIVITAMIN MULTIPLE 39237112969 [place] ADULT TABS /30 VITAMINS-MINERALS [place]lli FOLIC ACID as directed FOLIC ACID TABS 49170258237 Omi S TABS /17 [place] FOLIC ACID as directed FOLIC ACID TABS 43328911730 [place] TABS /17 12/22 [place] PREDNISONE 10 as directed PREDNISONE 60184521261 Omi S MG TABS / Cheo MELOXICAM 15 as directed MELOXICAM [id number] Omi S MG TABS / Cheo Medications Administered No information available. Allergies, Adverse Reactions, Alerts Observed no known allergies at Results Date Name Value Unit Range Flag Description Office Visit MEDS REVIEW Done Documentation of current medications (procedure) SMOK STATUS Never smoker Tobacco smoking status FLIS Plan of Care Type Date Detail Referral [facility] Therapy [facility], [address] [place] [address], [address] Referral [facility] Therapy [facility], [address] [place] [address], [address] Pending order X-Ray, Hand Pending order MRI Joint Upper Extremity Pending order X-Ray, Shoulder Pending order X-Ray, Hand Patient education LIGAMENT%20SPRAIN Patient education GANGLION%20CYSTS Procedures Code Procedure Name Date Entry Date [facility]-[id number] SNOMED-CT: 148428548 Smoking Cessation Counseling SCT-[id number] SNOMED-CT: 413165151507966 Current Medications Documented SCT-[id number] SNOMED-CT: 168380681 Smoking Cessation Counseling SCT-254264583800385 SNOMED-CT: 731013844054764 Current Medications Documented SCT-047793164345751 SNOMED-CT: 522362300876868 Current Medications Documented SCT-181648295 SNOMED-CT: 383805105 Smoking Cessation Counseling SCT-944287762577299 SNOMED-CT: 229040339029899 Current Medications Documented SCT-489365736 SNOMED-CT: 489958250 Smoking Cessation Counseling CPT-81025 Arthrocentesis, aspiration/injection; major joint shoulder, hip, knee CPT-11783 Arthrocentesis, aspiration/injection; major joint shoulder, hip, knee [...]
--- OUTSIDE RECORDS SUMMARY | 2019-02-09 09:17 | XMS RPT_ITS ---
:1965 Author Organization [place] Support Name Relationship Address Phone DON BROWNE Unavailable [address] + [place] [address] RAO Unavailable [address] + [place] [address] DON BROWNE Unavailable [address] + [place] [address] RAO Unavailable [address] + [place] [address] DON BROWNE Unavailable [address] + [place] [address] DON BORWNE Unavailable [address] + [place] [address] JALEN Unavailable [address] + [place] [address] DON BROWNE Unavailable [address] + [place] [address] DON BROWNE Unavailable [address] + [place] [address] DON BROWNE Unavailable [address] + [place] [address] RAO Unavailable [address] + [place] [address] DON BROWNE Unavailable [address] + [place] [address] JALEN Unavailable [address] + [place] [address] DON RBOWNE Unavailable [address] + [place] [address] RAO Unavailable [address] + [place] [address] DON BROWNE Unavailable [address] + [place] [phone] RAO Unavailable [address] + [place] [address] DON BROWNE Unavailable [address] + [place] [phone] RAO Unavailable [address] + [place] [address] DON BROWNE Unavailable [address] + [place] [phone] RAO Unavailable [address] + [place] [address] DON BROWNE Unavailable [address] + [place] [phone] RAO Unavailable [address] + [place] [address] DON BROWNE Unavailable [address] + [place] [address] RAO Unavailable [address] + [place] [address] DON BROWNE Unavailable [address] + [place] [address] RAO Unavailable [address] + [place] [address] DON BROWNE Unavailable [address] + [place] [address] RAO Unavailable [address] + [place] [address] DON BROWNE Unavailable [address] + [place] [address] RAO Unavailable [address] + [place] [address] DON BROWNE Unavailable [address] + [place] [address] RAO Unavailable [address] + [place] [address] DON BROWNE Unavailable [address] + [place] [phone] RAO Unavailable [address] + [place] [address] DON BROWNE Unavailable [address] + [place] [address] RAO Unavailable [address] + [place] [address] DON BROWNE Unavailable [address] + [place] [phone] RAO Unavailable [address] + [place] [address] DON BROWNE Unavailable [address] + [place] [phone] RAO Unavailable [address] + [place] [address] DON BROWNE Unavailable [address] + [place] [phone] RAO Unavailable [address] + [place] [address] DON BROWNE Unavailable [address] + [place] [address] RAO Unavailable [address] + [place] [address] ODN BROWNE Unavailable [address] + [place] [phone] RAO Unavailable [address] + [place] [address] DON BROWNE Unavailable [address] + [place] [address] RAO Unavailable [address] + [place] [address] DON BROWNE Unavailable [address] + [place] [address] RAO Unavailable [address] + [place] [address] DON BROWNE Unavailable [address] + [place] [phone] RAO Unavailable [address] + [place] [address] DON BROWNE Unavailable [address] + [place] [phone] RAO Unavailable [address] + [place] [address] DON BROWNE Unavailable [address] + [place] [phone] RAO Unavailable [address] + [place] [address] DON BROWNE Unavailable [address] + [place] [phone] RAO Unavailable [address] + [place] [address] DON BROWNE Unavailable [address] + [place] [phone] RAO Unavailable [address] + [place] [address] DON BROWNE Unavailable [address] + [place] [phone] RAO Unavailable [address] + [place] [address] DON BROWNE Unavailable [address] + [place] [address] RAO Unavailable [address] + [place] [address] DON BROWNE Unavailable [address] + [place] [phone] RAO Unavailable [address] + [place] [address] DON BROWNE Unavailable [address] + [place] [phone] RAO Unavailable [address] + [place] [address] DON BROWNE Unavailable [address] + [place] [address] RAO Unavailable [address] + [place] [address] DON BROWNE Unavailable [address] + [place] [address] JALEN Unavailable [address] + [place] [address] DON BROWNE Unavailable [address] + [place] [address] Care Team Providers Name Role Phone PROVIDER, UNKNOWN Admitting Unavailable PROVIDER, UNKNOWN Attending Unavailable RODRIGUEZ, CATHY Referring Unavailable VEE TADEOER RYvon Admitting Unavailable CARLYLE, LUX Do Attending Unavailable RODRIGUEZ, CATHY Referring Unavailable PROVIDER, UNKNOWN Admitting Unavailable PROVIDER, UNKNOWN Attending Unavailable RODRIGUEZ, CATHY Referring Unavailable PROVIDER, UNKNOWN Admitting Unavailable PROVIDER, UNKNOWN Attending Unavailable RODRIGUEZ, CATHY Referring Unavailable APOLINAR JONESA Attending Unavailable HASAN, KATALINA Referring Unavailable HASAN, KATALINA Referring Unavailable ROSELINE ROOT Attending Unavailable MIEDEL, EVELIA KARSON Referring Unavailable ROSELINE ROOT Referring Unavailable GRZEGORZ CADE Attending Unavailable ROSELINE ROOT Referring Unavailable CORINNE BUSTAMANTE Attending Unavailable GRZEGORZ CADE Referring Unavailable Rodriguez, Cathy Attending Unavailable Rodriguez, Cathy Referring Unavailable Miedel, Evelia Primary Care Unavailable Miedel, Evelia Primary Care Unavailable Nimco Chao Attending Unavailable MAHAMED CLAUDIO Attending Unavailable MAHAMED CLAUDIO Referring Unavailable Miedel, Evelia Primary Care Unavailable Miedel, Evelia Primary Care Unavailable Nando Eyad Admitting Unavailable Eyad Collier Attending Unavailable Sharon, Nish Attending Unavailable Sharon, Eleanor Referring Unavailable Miedel, Evelia Primary Care Unavailable MAHAMED CLAUDIO Consulting Unavailable Kalyani Harper Attending Unavailable Tereletsky, Eyad Admitting Unavailable Miedel, Evelia Primary Care Unavailable Terlyudmilaky, Eyad Consulting Unavailable Marco Aky Eyad Attending Unavailable Miedel, Evelia Attending Unavailable Miedel, Evelia Referring Unavailable Miedel, Evelia Primary Care Unavailable Miedel, Evelia Attending Unavailable Miedel, Evelia Referring Unavailable Miedel, Evelia Primary Care Unavailable Miedel, Evelia Attending Unavailable Miedel, Evelia Referring Unavailable Miedel, Evelia Primary Care Unavailable MAHAMED CLAUDIO Referring Unavailable Miedel, Evelia Primary Care Unavailable GONZÁLEZLARAS Attending Unavailable GONZÁLEZ, MAHAMED Attending Unavailable GONZÁLEZ, MAHAMED Referring Unavailable Primay Care Physicia, No Primary Care Unavailable María Hurd Attending Unavailable Brown, Magdiel Referring Unavailable Brown, Magdiel Primary Care Unavailable GONZÁLEZ, MAHAMED Attending Unavailable Brown, Magdiel Primary Care Unavailable GONZÁLEZ, MAHAMED Referring Unavailable Ish Newell Consulting Unavailable GONZÁLEZ, MAHAMED Attending Unavailable GONZÁLEZ, MAHAMED Referring Unavailable Miedel, Evelia Primary Care Unavailable Miedel, Evelia Attending Unavailable Miedel, Evelia Referring Unavailable Miedel, Evelia Primary Care Unavailable Miedel, Evelia Attending Unavailable Miedel, Evelia Referring Unavailable Miedel, Evelia Primary Care Unavailable Yan Herreral Attending Unavailable Miedel, Evelia Referring Unavailable Rodriguez, Cathy Attending Unavailable Miedel, Evelia Primary Care Unavailable Rodriguez, Cathy Referring Unavailable GONZÁLEZ, MAHAMED Consulting Unavailable Rodriguez, Cathy Attending Unavailable Rodriguez, Cathy Referring Unavailable Miedel, Evelia Primary Care Unavailable Rodriguez, Cathy Admitting Unavailable Rodriguez, Cathy Attending Unavailable Miedel, Evelia Primary Care Unavailable Rodriguez, Cathy Referring Unavailable Rodriguez, Cathy Attending Unavailable Rodriguez, Cathy Referring Unavailable Miedel, Evelia Primary Care Unavailable Nam Villegas Attending Unavailable Miedel, Evelia Referring Unavailable Nam Villegas Attending Unavailable Pilar Galvez HYDRO STATION OPERATOR-C Referring Unavailable Miedel, Evelia Primary Care Unavailable Pilar Galvez HYDRO STATION OPERATOR-C Attending Unavailable Miedel, Evelia Referring Unavailable Miedel, Evelia Primary Care Unavailable Yan Herreral Attending Unavailable Miedel, Evelia Attending Unavailable Miedel, Evelia Referring Unavailable Miedel, Evelia Primary Care Unavailable Miedel, Evelia Attending Unavailable Miedel, Eevlia Referring Unavailable Miedel, Evelia Primary Care Unavailable Nish Herrera Attending Unavailable Miedel, Evelia Attending Unavailable Miedel, Evelia Referring Unavailable Miedel, Evelia Primary Care Unavailable Yan Herreral Attending Unavailable Sharon, Nish Referring Unavailable Miedel, Evelia Primary Care Unavailable María Hurd Attending Unavailable Miedel, Evelia Referring Unavailable Miedel, Evleia Primary Care Unavailable Sharon, Eleanor Attending Unavailable Sharon, Eleanor Referring Unavailable Miedel, Evelia Primary Care Unavailable Sharon, Eleanor Attending Unavailable Miedel, Evelia Referring Unavailable Miedel, Evelia Primary Care Unavailable Eyad Collier Admitting Unavailable Miedel, Evelia Primary Care Unavailable Eyad Collier Consulting Unavailable Eyad Collier Attending Unavailable PROBLEMS PROBLEMS DATE TYPE CONDITION / CODE ATTENDING STATUS SOURCE 10/09/2018 Unknown Z79.899 - Other long GONZÁLEZ, Active [place] term (current) drug MAHAMED [facility] therapy / Hospital Z79.899(ICD-10) Repository 11/06/2018 Unknown E89.0 - Rodriguez, Cathy Active [place] Postprocedural [facility] hypothyroidism / Hospital E89.0(ICD-10) Repository 11/02/2018 Active Encounter for other Unknown [facility] examination / Repository Z01.818(ICD-10) 11/02/2018 Active Body mass index (bmi) Unknown Active [facility] 27.0-27.9, adult / System Z68.27(ICD-10) Repository 10/18/2018 Active Unknown / SCHARPF, Active [facility] UNK(Unknown) [facility] Repository 10/06/2018 Active 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 / D44.6(ICD-10) Repository 09/27/2018 Unknown R82.5 - Elevated Miedel, Evelia Active [place] urine levels of [facility] drugs, medicaments Hospital and biological Repository substances / R82.5(ICD-10) 09/10/2018 Unknown R00.2 - Palpitations Sharon, Nish Active [place] / R00.2(ICD-10) [facility] Hospital Repository 09/10/2018 Unknown R55 - Syncope and Sharon, Eleanor Active [place] collapse / Community R55(ICD-10) Hospital Repository 08/31/2018 Unknown R25.1 - Tremor, Rodriguez, Cathy Active [place] unspecified / Community R25.1(ICD-10) Hospital Repository 08/28/2018 Unknown E04.2 - Nontoxic Rodriguez, Cathy Active [place] multinodular goiter / Community E04.2(ICD-10) Hospital Repository 08/05/2018 Active Thyrotoxicosis, NA Active [facility] unspecified without [facility] [place] thyrotoxic crisis or Repository storm / E05.90(ICD-10) 08/05/2018 Active Endocrine disorder, NA Active [facility] unspecified / [facility] [place] E34.9(ICD-10) Repository 07/13/2018 Unknown E05.90 - MiedEvelia rockwell Active [place] Thyrotoxicosis, Community unspecified without Hospital thyrotoxic crisis or Repository storm / E05.90(ICD-10) 06/11/2018 Unknown M65.341 - Trigger [place]ic[place], Active [place] finger, right ring [facility] finger / Hospital M65.341(ICD-10) Repository 04/22/2018 Unknown M06.9 - Rheumatoid StaceyedEvelia rockwell Active [place] arthritis, Community unspecified / Hospital M06.9(ICD-10) Repository 04/22/2018 Unknown M54.9 - Dorsalgia, Evelia Bains Active [place] unspecified / Community M54.9(ICD-10) Hospital Repository 04/22/2018 Unknown M54.89 - Other StaceyedJason rockwellnah Active [place] dorsalgia / Community M54.89(ICD-10) Hospital Repository 04/22/2018 Unknown M51.36 - Other MiedelJasonEvelia Active [place] intervertebral disc Community degeneration, lumbar Hospital region / Repository M51.36(ICD-10) 07/21/2018 Unknown M13.0 - GONZÁLEZ, Active [place] Polyarthritis, [facility] unspecified / Hospital M13.0(ICD-10) Repository 02/09/2018 Unknown M18.12 - Unilateral Chicorelli, Active [place] primary [facility] osteoarthritis of Hospital first carpometacarpal Repository joint, left hand / M18.12(ICD-10) 12/24/2017 Unknown Z00.00 - Encounter GONZÁLEZ, Active [place] for general adult [facility] medical examination Hospital without abnormal Repository findings / Z00.00(ICD-10) PROCEDURES PROCEDURES DATE CODE DESCRIPTION STATUS SOURCE 11/02/2018 47279(C4) EKG 12 LEAD - Completed [facility] PERFORM System Repository 11/02/2018 64939(C4) BASIC METABOLIC Completed [facility] PANEL System Repository 11/02/2018 00635(C4) COMPLETE BLOOD COUNT Completed [facility] Repository 11/02/2018 TS(C4) TYPE AND SCREEN Completed [facility] Repository 11/02/2018 43281(C4) ABO RH TYPE [facility]pleted [facility] RESULTS RESULTS 12 LEAD ELECTROCARDIOGRAM Observed: 11/12/2018 Status: F Source: [place] 2:05 PM [facility] REPOSITORY [facility] Cardiovascular Services [address] [place] [address] 12 Lead EKG 11/10/18 2321 MR#: [id number] Acct: [id number] Name: NICKIE BROWNE Rep #: [id number] : 1965 53 From: Nish Herrera MD Attending Dr: Status: DEP ER Ordering Dr: Nimco Chao DO Date: 11/10/18 Location: ED Sex: M C Admitted: Test Reason : Blood Pressure : / mmHG Vent. Rate : 083 BPM Atrial Rate : 083 BPM P-R Int : 138 ms QRS Dur : 084 ms QT Int : 376 ms P-R-T Axes : 023 -29 -06 degrees QTc Int : 441 ms Normal sinus rhythm Minimal voltage criteria for LVH, may be normal variant Nonspecific ST abnormality Abnormal ECG Confirmed by SHARON RAMOS, NISH ([id number]), multimedia editor VICENTE KRISHNAN ([id number]) on 11/12/2018 2:04:36 PM Referred By: Cathy Rodriguez Confirmed By:NISH HERRERA MD 11/12/18 1404 Date Nish Herrera MD CC: Evelia Bains MD; Nimco Chao DO Signed DISCHARGE INSTRUCTION Observed: 11/11/2018 Status: F Source: [place] 2:49 AM [facility] Medical Records Department [address] [place] [address] Discharge Instruction 11/11/18 0248 MR#: [id number] Acct: [id number] Name: NICKIE BROWNE Rep #: [id number] : 1965 53 From: Nimco Chao DO PCP: Evelia Bains MD Status: REG ER ED Disposition - Plan for ED Patient: Chief Complaint: Shortness of Breath Instructions: ED Dyspnea Shortness of Breath, Abdominal Pain Referrals: Evelia Bains MD [Primary Care Provider] - 3-5 Days What to do if you have Problems For any increased pain, shortness of breath, bleeding, nausea or vomiting, chest pain, or any unexpected problems, contact your Primary Care Provider. Call [facility] ([phone]) or report to the closest Emergency Room. Call 911 if necessary. 11/11/18 0249 <Electronically signed by Nimco Chao DO> Date Nimco Chao DO Cosigner Signature (If Indicated): Date CC: Evelia Bains MD EMERGENCY DEPARTMENT Observed: 11/11/2018 Status: F Source: [place] SUMMARY 2:48 AM [facility] Medical Records Department [address] [place] [address] Emergency Department Summary 11/11/18 0244 MR#: [id number] Acct: [id number] Name: NICKIE BROWNE Rep #: [id number] : 1965 53 From: Nimco Chao DO PCP: Evelia Bains MD Status: REG ER - ER Visit Summary Date of Service: 11/11/18 Chief Complaint: [Shortness of breath and abdominal bloating] History of Present Illness: The patient is a 53 M [presents the emergency department complaint of shortness of breath that started today about 2 hours prior to coming in. Patient states that he is got pressure and distention in his abdomen that kind of pushes up into his chest causing him feel short of breath. The discomfort is worse with sitting. 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 Patient had a small bowel movement yesterday and he has had a small bowel movement today. Patient has not been passing much gas. Patient has history of goiter. Patient denies any fevers. His did give him some Gas-X at home but did not seem to improve his symptoms. Patient last ate approximately noon and has not eaten since then.] Physical Examination: [HEENT-PERRLA, EOMI. Cranial nerves II through XII grossly intact. TMs clear. Mucous membranes moist. No adenopathy. Cardiovascular-regular rate and rhythm without murmur or ectopy Lungs-clear to auscultation, chest wall stable without crepitus or subcu emphysema Abdomen-normoactive bowel sounds, soft. Patient has some mild distention. There is no rebound, rigidity, or perineal signs. Patient does have some mild diffuse tenderness. Extremities-intact 4, normal range of motion, normal pulses, atraumatic] Test Results: [EKG obtained arrival shows sinus rhythm with a ventricular rate of 83 bpm with some nonspecific ST changes. Troponin was less than 0.015. CBC with differential showed a white count of 10.6, hemoglobin 14.8, hematocrit 44, placed 299. Chemistries unremarkable other than a mildly depressed potassium at 3.2 for which I did give him 40 mEq of potassium chloride p.o. D-dimer was elevated at 0.[address] of the chest was obtained which showed no evidence of PE. Patient did have some mediastinal adenopathy. CT scan of the abdomen and pelvis was normal] Emergency Department Course and Treatment: [Patient initially on arrival did receive some Ativan 1 mg IV. Patient seems somewhat anxious and he did have a slight tremor and felt jittery. On repeat evaluation patient's abdominal bloating and discomforts mostly resolved and he denies feeling short of breath currently states that his symptoms essentially have resolved.] Treatment Plan: [Vision to follow-up with his primary care physician and surgeon within next 3-5 days.] Patient to continue with anti-gas medicine as needed. Disposition: [Discharged home in stable condition] Impression: [Dyspnea secondary to abdominal bloating and gas] This note was generated with [employer] dictation software. It may contain incorrect words, spelling, and punctuation that were not noted in review of the chart prior to signing ED Disposition - Plan for ED Patient: Chief Complaint: Shortness of Breath Referrals: Evelia Bains MD [Primary Care Provider] - What to do if you have Problems For any increased pain, shortness of breath, bleeding, nausea or vomiting, chest pain, or any unexpected problems, contact your Primary Care Provider. Call [facility] ([phone]) or report to the closest Emergency Room. Call 911 if necessary. 11/11/18 0248 <Electronically signed by Nimco Chao DO> Date Nimco Chao DO Cosigner Signature (If Indicated): Date CC: Evelia Bains MD CTA CHEST W/WO Observed: 11/11/2018 Status: F Source: [place] CONTRAST 12:22 AM [facility] Imaging Services [address] [place] [address] CTA Chest W/WO Contrast MR#: [id number] Acct: [id number] Name: NICKIE BROWNE Rep #: [id number] : 1965 M 53 From: Hernesto Martinez PCP: Evelia Bains MD Status: REG ER Study: CTA Chest W/WO Contrast Date of Exam: 11/11/18 Exam# [id number] Ordering Dr: Nimco Chao DO STUDY: CTA CHEST REASON FOR EXAM: Male, 53 years old. Chest tightness, shortness of breath, elevated d-dimer. Since removal of neck tumor. RADIATION DOSAGE (If Supplied By Facility): CTDIvol = ( 12.25 ) mGy, DLP = ( 1186.57 ) mGycm TECHNIQUE: The examination was performed with the intravenous administration of 75ML ml of Isovue 370 contrast material. Post-processing of the angiographic images was performed, with multiplanar reformation and 3D reconstruction. Individualized dose optimization techniques were used for this CT. COMPARISON: September 27, 2018. CT neck September 27, 2018. FINDINGS: Normal enhancement of the main pulmonary artery and right and left pulmonary arteries. Normal enhancement of the bilateral peripheral pulmonary arteries. There is no demonstrated pulmonary embolism. Normal thoracic aorta and visualized great vessels. Postoperative changes, with subcutaneous air, compatible with recent removal of a mass anterior to the proximal right common carotid artery. There is no demonstrated aortic dissection. Normal heart and pericardium. Mediastinal lymphadenopathy AP window measuring 1.2 x 0.9 cm, posterior to the gerri measuring 1.0 x 1.0 cm and right subcarinal measuring 1.6 x 1.2 cm. Additional mediastinal lymph nodes measuring less than 1 cm in greatest dimension. Several left nodes were noted on the recent prior study. Normal hilar regions. Normal visualized trachea and bronchi. The lungs are well expanded. No focal infiltrates or effusions. Normal chest wall structures. Degenerative changes of the mid and lower thoracic spine. Normal visualized upper abdomen. CT/CTA Chest W/WO Contrast IMPRESSION: No pulmonary embolus or thoracic aortic dissection. Mediastinal lymphadenopathy. Postoperative changes of recent right neck mass. Electronically Signed: Hernesto Martinez MD at 2:17 EST , Service support , CC: Evelia Bains MD; Nimco Chao DO Business Objects Architect: Signed ABDOMEN/PELVIS W IV CONT Observed: 11/11/2018 Status: F Source: [place] ONLY 12:22 AM [facility] Imaging Services [address] [place] [address] Abdomen/Pelvis W IV Cont ONLY MR#: [id number] Acct: [id number] Name: NICKIE BROWNE Rep #: [id number] : 1965 M 53 From: Hernesto Martinez PCP: Evelia Bains MD Status: REG ER Study: Abdomen/Pelvis W IV Cont ONLY Date of Exam: 11/11/18 Exam# [id number] Ordering Dr: Nimco Chao DO STUDY: CT ABDOMEN AND PELVIS WITH CONTRAST REASON FOR EXAM: Male, 53 years old. Chest tightness, bloating since recent neck tumor removal. RADIATION DOSAGE (If Supplied By Facility): CTDIvol = ( 12.25 ) mGy, DLP = ( 1186.57 ) mGycm TECHNIQUE: Transaxial images were obtained from the dome of the diaphragm to the symphysis pubis without oral contrast. 75ML ml of Isovue 370 contrast was administered. Sagittal and coronal images were reconstructed. Individualized dose optimization techniques were used for this CT. COMPARISON: July 13, 2018. FINDINGS: The visualized lung bases are unremarkable. The visualized portions of the heart are within normal limits. Normal liver. Normal gallbladder and extrahepatic biliary system. Normal spleen. Normal pancreas. Normal bilateral adrenal glands. Normal right kidney. Normal left kidney. Normal visualized stomach. Normal small intestine. Minimal sigmoid diverticulosis. The appendix is visualized and appears normal. Normal abdominal aorta. Normal inferior vena cava. Normal retroperitoneum. No intra-abdominal free air. Normal urinary bladder. Borderline prostate gland enlargement. Normal abdominal wall. Multilevel mild degenerative changes of the lumbar spine. CT/Abdomen/Pelvis W IV Cont ONLY IMPRESSION: No acute findings in the abdomen or pelvis. No evidence of bowel obstruction. Normal appendix. No significant change since the prior study. Electronically Signed: Hernesto Martinez MD at 2:37 EST , Service support , CC: Evelia Bains MD; Nimco Chao DO Business Objects Architect: Signed CBC W/DIFF, AUTOMATED Collected: 11/10/2018 Status: F Source: [place] 11:50 PM [facility] RE[facility] TYPE CODE TESTS RESULT OUT OF RANGE REFERENCE UNITS LAB L100.1000 4.4-11.0 K/mm3 Normal WBC 10.6 LAB L100.1200 4.6-6.2 M/mm3 Normal RBC 5.06 LAB L100.1300 13.0-16.5 g/dl Normal HGB 14.8 LAB L100.1400 40-54 % Normal HCT 43.9 LAB L100.1500 80-94 fL Normal MCV 86.8 LAB L100.1600 27.0-32.0 pg Normal MCH 29.2 LAB L100.1700 32-36 g/gl Normal MCHC 33.7 LAB L100.1810 11.6-14.6 % Normal RDW CV 12.8 LAB L100.1820 35.1-43.9 fl Normal RDW SD 39.9 LAB L100.1900 150-450 K/mm3 Normal PLT 299 LAB L100.2000 6.2-12.0 fl Normal MPV 9.3 LAB L100.2100 47-70 % Normal NEUT% 63.9 LAB L100.2200 19-41 % Normal LY% 19.8 LAB L100.2300 0-10 % High MONO% 11.5 LAB L100.2400 0-5 % Normal EO% 4.0 LAB L100.2500 0-1 % Normal BASO% 0.5 LAB L100.2550 0.0-0.9 % Normal IM GRAN % 0.300 Result Comment: IG% - Immature Granulocytes (promyelocytes, myelocytes and metamyelocytes) > 1% indicates that a LEFT SHIFT is Present. LAB L100.2620 2.0-7.7 X10 3/uL Normal Absolute Neut 6.8 LAB L100.2720 0.83-4.51 X10 3/ul Normal Absolute Lymph 2.10 Performed By: #### L100.0100 #### [facility] [address] [place], [address] D-DIMER QUANTITATIVE Collected: 11/10/2018 Status: F Source: [place] (DVT/PE) 11:50 PM [facility] REPOSITORY TYPE CODE TESTS RESULT OUT OF RANGE REFERENCE UNITS LAB L300.8000 0.27-0.49 FEU/ug/m High alert D-DIMER 0.52 QUANT Result Comment: D-Dimer ELEVATED (>0.49): Additional studies and clinical assessments are indicated to conclude diagnosis of: Deep Vein Thrombosis (DVT) or Pulmonary Embolism (PE) CRITICAL VALUE VERIFIED. CALLED TO HELENA HOLT 11/11/18 0019 Shazia Campo. RESULTS READ BACK BY SAME . Performed By: #### L300.8000 #### [facility] [address] [place], [address] COMPREHENSIVE METABOLIC Collected: 11/10/2018 Status: F Source: [facility] 11:50 PM [facility] REPOSITORY TYPE CODE TESTS RESULT OUT OF RANGE REFERENCE UNITS LAB L501.0100 74-106 mg/dL Normal GLU 104 Result Comment: Fasting Glucose result from 100 to 125 mg/dL suggests IMPAIRED HOMEOSTASIS per A.D.A. criteria. Please note revised GLUCOSE reference range effective 2017. LAB L501.1000 7-18 mg/dL Normal BUN 18 LAB L501.1100 0.70-1.30 mg/dL Normal CREAT,SERUM 0.99 Result Comment: The validity of the calculated GFR AND GFRAA in patients over 70 years has not been determined. Clinical correlation is essential. LAB L501.1110 >60 mL/min Normal EST GFR 85 Result Comment: Non- GFR Calc LAB L501.1115 >60 mL/min Normal EST GFR - AA 103 Result Comment: GFR Calc LAB L501.1255 ml/min Normal Estimated CRCL 82.53 LAB L501.1300 10-20 RATIO Normal BUN/CRE 18.3 LAB L501.1500 6.4-8. g/dL Normal 2 T PROT 7.7 LAB L501.1800 3.2-5. g/dL Normal 0 ALB 4.0 LAB L501.1950 2.2-4. g/dL Normal 2 GLOB 3.7 LAB L501.2000 0.9-2. RATIO Normal 4 A/G 1.1 LAB L501.2200 8.5-10 mg/dL Normal .1 CA 9.2 LAB L501.4100 15-37 U/L High AST 47 LAB L501.4305 45-117 U/L Normal ALK P 79 LAB L501.4405 16-61 U/L Normal ALT 50 LAB L501.4600 0.20-1 mg/dL Normal .00 T BILI 0.40 LAB L501.5300 136-14 mmol/L Normal 5 NA 139 LAB L501.5600 3.5-5. mmol/L Low 1 K 3.2 LAB L501.5900 98-107 mmol/L Normal CL 103 LAB L501.6100 21.0-3 mmol/L Normal 2.0 CO2 27.0 LAB L501.6200 5-15 Normal GAP 9 Performed By: #### L500.4050, L501.2450, L501.4010 #### [facility] [address] [place], [place], [address] LIPASE Collected: 11/10/2018 Status: F Source: [place] 11:50 PM [facility] REPOSITORY TYPE CODE TESTS RESULT OUT OF RANGE REFERENCE UNITS LAB L501.2450 73-393 U/L Normal LIPASE 97 Performed By: #### L500.4050, L501.2450, L501.4010 #### [facility] [address] [place], [place], [address] TROPONIN-I Collected: 11/10/2018 Status: F Source: [place] 11:50 PM [facility] REPOSITORY TYPE CODE TESTS RESULT OUT OF RANGE REFERENCE UNITS LAB L501.4010 <0.045 ng/mL Normal < 0.015 TROPONIN-I Result Comment: TROPONIN-I EXPECTED VALUES <0.045 Negative 0.045 - 0.590 Consistent with Cardiac Damage > OR = 0.600 Critical Value Not every elevated troponin is indicative of IL. These values should be used with clinical judgement in examining the patient's clinical picture for diagnosis. To establish a diagnosis of IL versus myocardial injury, there must be a demonstrated rise and/or fall in the troponin values, in addition to ischemic symptoms, EKG changes, new regional wall motion abnormality, and/or angiographical evidence. PLEASE NOTE: REFERENCE RANGES EDITED 18 Performed By: #### L500.4050, L501.2450, L501.4010 #### [facility] [address] [place], [place], [address] BLOOD GAS, ARTERIAL Collected: 11/08/2018 Status: F [facility] REPOSITORY TYPE CODE TESTS RESULT OUT OF RANGE REFERENCE UNITS LAB CR PHA 7.35-7.45 CR PHA 7.389 LAB pco2 35.0-45.0 mm Hg CR PCO2 39.7 LAB CR PO2 80-100 mm Hg mm Hg High CR PO2 130 LAB CR %O2 SAT >=95.1 % CR % O2 98.8 SAT LAB CR CRYSTAL -2.0-2.0 mmol/L CR CRYSTAL -0.8 LAB CPCR HCO3 22-28 mmol/L CR HCO3 24 Performed By: #### CR BGA, CR COOX, CR LYTES, CR ICA, LACT, CR GLU #### [facility] [address] [place] [address], CO-OXIMETER Collected: 11/08/2018 Status: F Source: THE 11:30 AM [facility] REPOSITORY TYPE CODE TESTS RESULT OUT OF REFERENCE UNITS RANGE LAB HEMATOCRIT 42.0-52.0 % HEMATOCRIT 44.0 LAB HEMOGLOBIN 14.0-18.0 g/dL HEMOGLOBIN 14.3 LAB F6 95.0-100.0 % OXYHEMOGLOBIN 97.0 LAB CARBOXY <3.0 % CARBOXYHEMOGLOBIN 0.8 LAB CR HBMET <3.0 % CR HBMET 1.0 Performed By: #### CR BGA, CR COOX, CR LYTES, CR ICA, LACT, CR GLU #### [facility] [address] [place] [address], ELECTROLYTES Collected: 11/08/2018 Status: F Source: THE 11:30 AM [facility] REPOSITORY TYPE CODE TESTS RESULT OUT OF REFERENCE UNITS RANGE LAB n7 135-148 mmol/L SODIUM, 140 WHOLE BLOOD LAB POTWB 3.3-5.3 mmol/L 4.6 POTASSIUM, WHOLE BLOOD LAB n9 97-111 mmol/L CHLORIDE, 107 WHOLE BLOOD LAB CPCR HCO3 22-28 mmol/L CR HCO3 24 Performed By: #### CR BGA, CR COOX, CR LYTES, CR ICA, LACT, CR GLU #### [facility] [address] [place] [address], CALCIUM, IONIZED Collected: 11/08/2018 Status: F [facility] AM SYSTEM REPOSITORY TYPE CODE TESTS RESULT OUT OF RANGE REFERENCE UNITS LAB CR ICA 1.10-1.40 mmol/L CR ICA 1.22 Performed By: #### CR BGA, CR COOX, CR LYTES, CR ICA, LACT, CR GLU #### [facility] [address] [place] [address], LACTIC ACID Collected: 11/08/2018 Status: F Source: [facility] 11:30 AM SYSTEM REPOSITORY TYPE CODE TESTS RESULT OUT OF RANGE REFERENCE UNITS LAB CR LACT 0.5-2.0 mmol/L CR LACT 1.9 Performed By: #### CR BGA, CR COOX, CR LYTES, CR ICA, LACT, CR GLU #### [facility] [address] [place] [address], GLUCOSE, WHOLE BLOOD Collected: 11/08/2018 Status: F Source: [facility] 11:30 AM SYSTEM REPOSITORY TYPE CODE TESTS RESULT OUT OF RANGE REFERENCE UNITS LAB CR GLU 68-98 mg/dL CR GLU 95 Performed By: #### CR BGA, CR COOX, CR LYTES, CR ICA, LACT, CR GLU #### [facility] [address] [place] [address], THYROID STIM HORMONE Collected: 11/06/2018 Status: F Source: [place] ([facility]) 9:59 AM [facility] REPOSITORY TYPE CODE TESTS RESULT OUT OF RANGE REFERENCE UNITS LAB L501.9520 0.358-3.74 uIU/mL High TSH 5.89 Performed By: #### L501.9520 #### [facility] [place] [place], [place], [id number] ABO RH TYPE Collected: 11/02/2018 Status: F Source: [facility] 11:49 AM SYSTEM REPOSITORY TYPE CODE TESTS RESULT OUT OF REFERENCE UNITS RANGE LAB I ABORH A ABO Negative RH TYPE Performed By: #### ABORH #### [facility] [address] [place] [address], COMPLETE BLOOD COUNT Collected: 11/02/2018 Status: F Source: [facility] 10:56 AM SYSTEM REPOSITORY TYPE CODE TESTS RESULT OUT OF RANGE REFERENCE UNITS LAB WBC 4.5-11.5 K/uL WBC 9.1 LAB RBC 4.50-5.90 M/uL RBC 5.44 LAB HGB 13.9-16.3 g/dL HGB 15.8 LAB HCT 41.0-53.0 % HCT 47.7 LAB MCV 80-100 fL MCV 88 LAB MCH 26.0-34.0 pg MCH 29.0 LAB MCHC 32.0-35.9 g/dL MCHC 33.1 LAB PLT 150-400 K/uL PLT 307 LAB RDW 11.5-14.5 % RDW-CV 12.8 LAB MPV 8.5-11.5 fL MPV 10.3 Performed By: #### CBC #### [facility] [address] [place] [address], BASIC METABOLIC PANEL Collected: 11/02/2018 Status: F Source: [facility] 10:56 AM SYSTEM REPOSITORY TYPE CODE TESTS RESULT OUT OF REFERENCE UNITS RANGE LAB GLU 68-110 mg/dL GLU 96 LAB NA3 135-148 mmol/L NA 137 LAB POT 3.3-5.3 mmol/L K 4.5 LAB CO2 21-30 mmol/L CO2 25 LAB CHLOR 97-111 mmol/L CL 102 LAB BUN 8-22 mg/dL BUN 14 LAB CREAT 0.80-1.30 mg/dL CREAT 0.99 LAB CA 8.4-10.4 mg/dL CA 9.8 LAB ANION GAP 5-13 ANION High GAP 15 LAB eGFR >=60 mL/min/1.73 sqm ESTIMATED GFR 88 (CKD-EPI) Performed By: #### CH8 #### [facility] [address] [place] [address], TYPE AND SCREEN Collected: 11/02/2018 Status: F Source: [facility] 10:56 AM SYSTEM REPOSITORY TYPE CODE TESTS RESULT OUT OF REFERENCE UNITS RANGE LAB I ABORH A ABO Negative RH TYPE LAB ABSC INT ABSC Negative INT Result Comment: Patient does not require a 2nd sample drawn prior to surgery. Specimen meets Blood Bank's Pre-Surgical Protocol and is valid for a surgery that is within 14 days from date of collection. Surgery date of 11/08/18 is approved for this sample. Performed By: #### TS #### [facility] [address] [place] [address], PROCEDURE Observed: 10/21/2018 Status: COMPLETED Source: [place] 5:27 PM [facility] REPOS[facility] HNO ID: [id number] Author: Corinne Bustamante Service: (none) Author Type: Physician Type: Procedures Filed: 10/25/2018 9:11 PM Note Text: Thyroid/parathyroid/neck ultrasound (October 21, 2018): Referring Physician: Dr. Grzegorz Cade Primary Care Physcian: Evelia Bains MD Reason for the study: Neck mass Comparison: CT of the neck from Sep 27, 2018 Equipment: [employer] Prosound Alpha 6 Transducer: Linear/Trapezoidal multifrequency Regions examined: Thyroid bed and Lymphatic areas Sagittal and transverse views were obtained. Color and power Doppler were applied when indicated. Right lobe remnant: L 36 x W 24 x AP 7.5 mm; Homogeneous. No internal vascularity Isthmus: surgically absent Left lobe remnant: none Other findings: no adenopathies. Impression: S/P subtotal thyroidectomy. Right lobe remnant. Recommendation: Neck exam in a few months. Performed and interpreted by Corinne Bustamante MD PROGRESS Observed: 10/21/2018 Status: COMPLETED Source: [place] 4:00 PM [facility] REPOSIT[facility] HNO ID: [id number] Author: Corinne Bustamante Service: (none) Author Type: Physician Type: Progress Notes Filed: 10/25/2018 9:11 PM Note Text: Nickie Browne is here for follow up regarding: thyroid nodules S/P thyroidectomy Is patient interested in MyChart? he is interested in it. Patient is taking levothyroxin ? Yes Patient is not taking iron, calcium and/or multivitamin within 4 hours of the levothyroxin and patient is not missing any doses of levothyroxin History of CT scan with intravenous contrast within the last 4 months? No CC: hypothyroidism. Current Outpatient Prescriptions: temazepam (RESTORIL) 30 mg cap Take 30 mg by mouth at bedtime as needed. Disp: Rfl: 0 levothyroxine (SYNTHROID) 100 mcg tablet Take 125 mcg by mouth once daily. Disp: Rfl: mometasone (NASONEX) 50 mcg/Actuation NASAL nasal spray Use in the nose once daily. 2 SPRAYS EACH NOSTRIL DAILY-RINSE MOUTH AFTER USE. Disp: 1 Bottle Rfl: 0 metoprolol succinate 100 mg CSpX Take 100 mg by mouth once daily. Disp: Rfl: No current facility-administered medications for this visit. HPI: Mr. Browne is here with his and son. Dr. Cade recommended that he see me regarding his symptoms and a right neck mass that the patient and family are suspecting could be a paraganglioma. Mr. Browne saw Dr. Jones in July 2018 for thyroid nodules. This had been noted during a rheumatology visit. His TSH was mildly suppressed with normal T4 and T3. Thyroid uptake was 33.7% at 24 hours and the scan showed a photopenic area in caudal left lobe. Thyroid ultrasound showed bilobar enlargement with bilateral nodules. He saw Dr. Rodriguez who recommended FNA. The patient has been having symptoms that suggested the possibility of having a paraganglioma. His BP has been has high as 170 systolic. He gets shaky and anxious when this happens. There was report of elevated norepinephrine level. Dr. Jones repeated plasma catecholamines and metanephrines and those were normal. Urine metanephrines were normal. Before May, he felt fine and the adrenergic symptoms were not happening. Dr. Root told him he could visualize the neck mass on ultrasound 1.5 weeks ago. ROS: Energy: not so good Moods :anxiousness when the spells happen Dysphagia: not now New neck lump: No Communication: Hearing: normal; Voice: normal Dyspnea: sometimes Cough: No Palpitations: Yes at times. Tremor: Yes intermittently Past, social and family histories were reviewed and updated in the database Yes Physical exam: BP 131/78 Pulse 79 Ht 170.3 cm (5' 7.05) Wt 78.6 kg (173 lb 4.8 oz) BMI 27.10 kg/m? Body mass index is 27.1 kg/m?. GENERAL: Well nourished, in distress, anxious, well hydrated and oriented x 3 Communication: Hearing: normal; Voice: shaky speech EYES: no thyroid eye signs NECK: no tenderness, no adenopathies and healed neck incision THYROID: S/P thyroidectomy and no significant remnant EXTREMITIES: No clubbing, no cyanosis and normal nails NEURO: normal strength and hand tremor Previous laboratory results: TSH (uU/mL) Date Value 08/05/2018 0.196 Imaging (new information since last visit): I reviewed the CT of the neck from September 27, 2018: There is a hypoattenuating dixon shaped mass in the right level at the base of the neck, anterior to the common carotid artery and medial to the jugular vein. No calcifications. This looks like thyroid tissue. Impression and recommendations: Goiter. S/p subtotal thyroidectomy. Possible remnant in right central compartment. Spells of tremor and anxiousness. Reportedly high blood pressure during spells. Reportedly elevated epinephrine level. Repeat catecholamines and metanephrines have been normal. Patient, family and providers concerned with the possibility of paraganglioma. Of note the patient had the thyroidectomy without intraoperative events. I told the patient I do not have evidence of elevated catecholamines. We will try to obtain outside records from Dr. Root's office. I will review and if truly elevated, I will discuss with Dr. Mosley. See procedure note. Ultrasound showed a right thyroid lobe remnant caudally without suspicious features. The appearance is not suggestive of paraganglioma. Will see him in follow up depending on the results. Corinne Bustamante MD CNOV Observed: 10/21/2018 Status: COMPLETED Source: [place] 3:00 PM [facility] REPOSITORY Office Visit (ENDOMN) NICKIE BROWNE ([id number]) 1965 M Date Time Provider Department 10/21/18 3:00 PM CORINNE BUSTAMANTE During your visit today, we recorded the following information about you: Pulse Blood pressure Weight Height 79/minute 131/78 78.6 kg 1.703 m Therese Garza 10/21/2018 3:01 PM Signed Thank you for choosing the [facility] Department of Endocrinology, Diabetes and Metabolism. Being able to provide excellent health care has allowed us to be # 3 in the country according to [employer]. Did you know that you need to call 48 hours in advance of your scheduled visit, if you are unable to make your appointment? The [facility] [place] thanks you for your commitment, because patients not showing to their appointment results in a lost opportunity for patients to receive world class health care at the [facility]. To Cancel an appointment, please choose one of the following: - Call the Appointment Call Center at [phone] - From [facility], Go to Appointments ? Cancel Appts If cancelling, consider your need to reschedule to prevent further delays in your care. To Schedule an appointment, please choose one of the following: - Call the Appointment Call Center at [phone] - From [facility], Go to Appointments ? Request an Appt Corinne Bustamante MD 10/25/2018 9:11 PM Signed Nickie Browne is here for follow up regarding: thyroid nodules S/P thyroidectomy Is patient interested in [facility]? he is interested in it. Patient is taking levothyroxin ? Yes Patient is not taking iron, calcium and/or multivitamin within 4 hours of the levothyroxin and patient is not missing any doses of levothyroxin History of CT scan with intravenous contrast within the last 4 months? No CC: hypothyroidism. Current Outpatient Prescriptions: temazepam (RESTORIL) 30 mg cap Take 30 mg by mouth at bedtime as needed. Disp: Rfl: 0 levothyroxine (SYNTHROID) 100 mcg tablet Take 125 mcg by mouth once daily. Disp: Rfl: mometasone (NASONEX) 50 mcg/Actuation NASAL nasal spray Use in the nose once daily. 2 SPRAYS EACH NOSTRIL DAILY-RINSE MOUTH AFTER USE. Disp: 1 Bottle Rfl: 0 metoprolol succinate 100 mg CSpX Take 100 mg by mouth once daily. Disp: Rfl: No current facility-administered medications for this visit. HPI: Mr. Browne is here with his and son. Dr. Cade recommended that he see me regarding his symptoms and a right neck mass that the patient and family are suspecting could be a paraganglioma. Mr. Browne saw Dr. Jones in July 2018 for thyroid nodules. This had been noted during a rheumatology visit. His TSH was mildly suppressed with normal T4 and T3. Thyroid uptake was 33.7% at 24 hours and the scan showed a photopenic area in caudal left lobe. Thyroid ultrasound showed bilobar enlargement with bilateral nodules. He saw Dr. Rodriguez who recommended FNA. The patient has been having symptoms that suggested the possibility of having a paraganglioma. His BP has been has high as 170 systolic. He gets shaky and anxious when this happens. There was report of elevated norepinephrine level. Dr. Jones repeated plasma catecholamines and metanephrines and those were normal. Urine metanephrines were normal. Before May, he felt fine and the adrenergic symptoms were not happening. Dr. Root told him he could visualize the neck mass on ultrasound 1.5 weeks ago. ROS: Energy: not so good Moods :anxiousness when the spells happen Dysphagia: not now New neck lump: No Communication: Hearing: normal; Voice: normal Dyspnea: sometimes Cough: No Palpitations: Yes at times. Tremor: Yes intermittently Past, social and family histories were reviewed and updated in the database Yes Physical exam: BP 131/78 Pulse 79 Ht 170.3 cm (5' 7.05) Wt 78.6 kg (173 lb 4.8 oz) BMI 27.10 kg/m? Body mass index is 27.1 kg/m?. GENERAL: Well nourished, in distress, anxious, well hydrated and oriented x 3 Communication: Hearing: normal; Voice: shaky speech EYES: no thyroid eye signs NECK: no tenderness, no adenopathies and healed neck incision THYROID: S/P thyroidectomy and no significant remnant EXTREMITIES: No clubbing, no cyanosis and normal nails NEURO: normal strength and hand tremor Previous laboratory results: TSH (uU/mL) Date Value 08/05/2018 0.196 Imaging (new information since last visit): I reviewed the CT of the neck from September 27, 2018: There is a hypoattenuating dixon shaped mass in the right level at the base of the neck, anterior to the common carotid artery and medial to the jugular vein. No calcifications. This looks like thyroid tissue. Impression and recommendations: Goiter. S/p subtotal thyroidectomy. Possible remnant in right central compartment. Spells of tremor and anxiousness. Reportedly high blood pressure during spells. Reportedly elevated epinephrine level. Repeat catecholamines and metanephrines have been normal. Patient, family and providers concerned with the possibility of paraganglioma. Of note the patient had the thyroidectomy without intraoperative events. I told the patient I do not have evidence of elevated catecholamines. We will try to obtain outside records from Dr. Root's office. I will review and if truly elevated, I will discuss with Dr. Mosley. See procedure note. Ultrasound showed a right thyroid lobe remnant caudally without suspicious features. The appearance is not suggestive of paraganglioma. Will see him in follow up depending on the results. MD Corinne Middleton MD 10/25/2018 9:11 PM Signed Thyroid/parathyroid/neck ultrasound (October 21, 2018): Referring Physician: Dr. Grzegorz Cade Primary Care Physcian: Evelia Bains MD Reason for the study: Neck mass Comparison: CT of the neck from Sep 27, 2018 Equipment: [employer] Prosound Alpha 6 Transducer: Linear/Trapezoidal multifrequency Regions examined: Thyroid bed and Lymphatic areas Sagittal and transverse views were obtained. Color and power Doppler were applied when indicated. Right lobe remnant: L 36 x W 24 x AP 7.5 mm; Homogeneous. No internal vascularity Isthmus: surgically absent Left lobe remnant: none Other findings: no adenopathies. Impression: S/P subtotal thyroidectomy. Right lobe remnant. Recommendation: Neck exam in a few months. Performed and interpreted by Corinne Bustamante MD Referring Provider: GRZEGORZ CADE [[id number]] Allergies As of Date: 10/21/2018 (No Known Allergies) Date Reviewed: 10/21/2018 Reviewed by: Therese Garza - Fully Assessed Reason for Visit: new nodule [Other] Primary Visit Diagnosis:Mass of right side of neck [R22.1] Order(s):US NECK (POC) ENDO USE ONLY [[id number]] Order #: [id number]. #:[id number]: 1 Prescriptions as of 10/21/2018 Sig: TEMAZEPAM 30 MG CAPSULE Take 30 mg by mouth at bedtim* LEVOTHYROXINE 100 MCG TABLET Take 125 mcg by mouth once da* MOMETASONE 50 MCG/ACTUATION N* Use in the nose once daily. 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 Being able to provide excellent health care has allowed us to be # 3 in the country according to [employer]. Did you know that you need to call 48 hours in advance of your scheduled visit, if you are unable to make your appointment? The [facility] [place] thanks you for your commitment, because patients not showing to their appointment results in a lost opportunity for patients to receive [facility] health care at the [facility]. To Cancel an appointment, please choose one of the following: - Call the Appointment Call Center at [phone] - From [place], Go to Appointments ? Cancel Appts If cancelling, consider your need to reschedule to prevent further delays in your care. To Schedule an appointment, please choose one of the following: - Call the Appointment Call Center at [phone] - From [place], Go to Appointments ? Request an Appt Medications Discontinued During This Encounter leflunomide (ARAVA) 20 mg tablet 10/21/2018 Class: Historical Med Route: ORAL Sig: Take 20 mg by mouth once daily. Disc: Reason for discontinue is not on file. meloxicam (MOBIC) 15 mg tablet 10/21/2018 Class: Historical Med Route: ORAL Sig: Take 15 mg by mouth once daily. Disc: Reason for discontinue is not on file. hydroxychloroquine sulfate (PLAQUENI* 10/21/2018 Class: Historical Med Route: ORAL Sig: Take 400 mg by mouth once daily. Disc: Reason for discontinue is not on file. omeprazole (PRILOSEC) 20 mg capsule 10/21/2018 Class: Historical Med Route: ORAL Sig: Take 20 mg by mouth once daily. Disc: Reason for discontinue is not on file. levothyroxine (SYNTHROID) 100 mcg ta* 10/21/2018 Class: Historical Med Sig: levothyroxine 100 mcg tablet Take 1 tablet every day by oral route for 30 days. Disc: Reason for discontinue is not on file. Disposition: Return if symptoms worsen or fail to improve. Follow-up and Disposition History Recorded Encounter Status:Closed by CORINNE BUSTAMANTE MD on 10/25/18 PROGRESS Observed: 10/18/2018 Status: COMPLETED Source: [place] 9:29 AM [facility] REPOSITORY HNO ID: [id number] Author: Grzegorz Cade Service: (none) Author Type: Physician Type: Progress Notes Filed: 10/19/2018 8:18 AM Note Text: OTOLARYNGOLOGY - HEAD AND NECK SURGERY New Patient Consultation This consult was requested by Roseline Root MD for an opinion regarding carotid arteries. My final recommendations will be communicated to the requesting provider by way of shared EMR or letter via the US mail. HPI: Nickie Browne is a 53 year old male with PMHx significant for allergic rhinitis, HTN, OA and past surgical history of thyroidectomy in August 28, 2018. He is here for evaluation of HTN, shaking AND tachycardia that began in June. 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 The pathology showed no malignancy. His main symptoms are high blood pressure, shaking, tachycardia, sweating, restlessness and like he is in high speed mood all the time. He reports that he has attacks once a week but he is always activated He reports that he had epinephrine testing during an episode of his symptoms and reports that his epinephrine was 3 times higher than usual. Those results are not available to us but testing form 08/09/2018 which is available, shows no elevation. He had a CTA on [id number] which showed Non vascular structure noted at proximal neck measuring approximately: 3.1 x 1.9 x ?0.9 cm. Highly vascularized tissue noted at the base of the jaw bilaterally, away ?from area of carotid arteries. He had a CT neck on [id number] which showed a right supraclavicular mass. His mother had thyroid issues. He has not had radiation therapy. He is a never smoker. As stated on new patient questionnaire and update in the Past medical history, past surgical history, medications, allergies, family history, social history, and review of systems below. For further details please see patient questionnaire scanned into [employer]. PAST MEDICAL HISTORY Diagnosis Date - Allergic rhinitis, cause unspecified - Carotid body tumor (HCC) - HTN (hypertension) - Multiple thyroid nodules - Osteoarthritis PAST SURGICAL HISTORY Procedure Laterality Date - CARPAL TUNNEL - PAST SURGICAL HISTORY OF 2018 thyroidectomy - REPAIR ING HERNIA,5+Y/O,REDUCIBL Left - THYROIDECTOMY 08/28/2018 Current Outpatient Prescriptions: temazepam (RESTORIL) 30 mg cap Take 30 mg by mouth at bedtime as needed. Disp: Rfl: 0 levothyroxine (SYNTHROID) 100 mcg tablet Take 1 tablet by mouth once daily. Disp: Rfl: metoprolol succinate 100 mg CSpX Take 100 mg by mouth once daily. Disp: Rfl: omeprazole (PRILOSEC) 20 mg capsule Take 20 mg by mouth once daily. Disp: Rfl: mometasone (NASONEX) 50 mcg/Actuation NASAL nasal spray Use in the nose once daily. 2 SPRAYS EACH NOSTRIL DAILY-RINSE MOUTH AFTER USE. Disp: 1 Bottle Rfl: 0 leflunomide (ARAVA) 20 mg tablet Take 20 mg by mouth once daily. Disp: Rfl: meloxicam (MOBIC) 15 mg tablet Take 15 mg by mouth once daily. Disp: Rfl: hydroxychloroquine sulfate (PLAQUENIL ORAL) Take 400 mg by mouth once daily. Disp: Rfl: No current facility-administered medications for this visit. ALLERGIES No Known Allergies FAMILY HISTORY Problem Relation Age of Onset - Thyroid Mother hypothyroid - Hypertension Father - Lipids Father - Heart Father Social History Marital status: Spouse name: Years of education: Number of children: Social History Main Topics Smoking status: Never Smoker Smokeless tobacco: Never Used Alcohol use: Yes Comment: occasional Drug use: No Review of Systems: Eyes - Denies failing vision, double vision Ears - Denies drainage, hearing loss, dizziness, ringing Nose - Denies nosebleeds, drainage, sinus symptoms, nasal obstruction Throat - denies frequent sore throat, lump in neck, hoarseness Lungs - Denies frequent cough, shortness of breath Heart - See HPI Gastrointestinal - Denies stomach pain, nausea, vomiting , diarrhea, bleeding Genitourinary - Denies Burning, bleeding, pain or problems passing urine Neurological - Denies convulsions, seizures, memory loss, headaches Endocrine - Denies heat/cold intolerance, weight gain or loss, hair loss Remainder of ROS negative except for otherwise stated in the HPI above. REVIEW OF RADIOLOGICAL FILMS AND RECORDS: 10/04/2018 On our read there is a 3 cm mass in the right neck which most likely represent retained thyroid tissue. 10/06/2018 RIGHT SIDE ? Non vascular structure noted at proximal neck measuring approximately: 3.1 x 1.9 x ?0.9 cm. Highly vascularized tissue noted at the base of the jaw bilaterally, away ?from area of carotid arteries. ? Common carotid artery: Plaque visualized without evidence of hemodynamically significant stenosis. ? Internal carotid artery: 20-39% stenosis. ? Vertebral artery: Patent and antegrade flow noted. ? LEFT SIDE ? Internal carotid artery: 0-19% stenosis. ? Vertebral artery: Patent and antegrade flow noted. LABS: See 08/09/2018 testing in the chart METANEPHRINES 24H UR Order: [id number] Status: Final result ??Visible to patient: No (Not Released) Next appt: None Dx: Elevated norepinephrine level Ref Range AND Units 2mo ago Metanephrine 52 - 341 ug/24 hr 153 Normetanephrine 88 - 444 ug/24 hr 439 Tot Metanephrine 140 - 785 ug/24 hr 592 Comment: This test was developed and its performance characteristics determined by [facility] [place] ([facility] It has not been cleared or approved by the FDA. [facility] is regulated under CLIA as qualified to perform high-complexity testing. This test is used for clinical purposes. It should not be regarded as investigational or for research. Ref Range AND Units 2mo ago (08/09/18) 2mo ago (08/09/18) 2mo ago (08/09/18) Period 24 24 24 Urine Volume 2,252 Creatinine, Ur Random (UCRR) mg/dL 61 Creatinine mg/day, Urine 800 - 2,100 mg/d 1,374 Comment: (NOTE) Performed by [facility], [address] [place] [id number] [email or web address], Vik Napoles MD, Lab. Director Epinephrine, Ur 24hr 1 - 7 ug/d 7 Comment: (NOTE) REFERENCE INTERVAL: Epinephrine, Urine - ug/d Access complete set of age- and/or gender-specific reference intervals for this test in the [facility] Test Directory ([employer]). Norepinephrine, Ur 24hr 16 - 71 ug/d 70 Comment: (NOTE) REFERENCE INTERVAL: Norepinephrine, Urine - ug/d Access complete set of age- and/or gender-specific reference intervals for this test in the [facility] Test Directory ([employer]). Dopamine, Ur 24hr 77 - 324 ug/d 153 Comment: (NOTE) REFERENCE INTERVAL: Dopamine, Urine - ug/d Access complete set of age- and/or gender-specific reference intervals for this test in the [facility] Test Directory ([employer]). Epinephrine, Ur ratio to EQUIPMENT PLANNER 0 - 20 ug/g EQUIPMENT PLANNER 5 Norepinephrine, Ur ratio to EQUIPMENT PLANNER 0 - 45 ug/g EQUIPMENT PLANNER 51 Dopamine, Ur ratio to EQUIPMENT PLANNER 0 - 250 ug/g EQUIPMENT PLANNER 111 Catecholamines Interpretation SEE NOTE PHYSICAL EXAM: Vitals - Resp 20 Ht 170.2 cm (5' 7) Wt 77.1 kg (170 lb) BMI 26.63 kg/m? Constitutional - General Appearance: well developed, well nourished, without obvious deformities Communication: speaks with a normal voice without hoarseness Head AND Face - Overall: no obvious scars, lesions or masses Parotid and submandibular glands: no masses or tenderness Facial strength: normal and equal bilaterally Ear, Nose, Mouth AND Throat - Ears: both left and right external auditory canals and TM's are normal, no external deformities Nasal exam: mucosa is pink, septum is midline, visible turbinates are normal on anterior rhinoscopy Mastication: teeth appear midline Oral Cavity and oropharynx: mucosa, hard and soft palates, tongue, tonsil area, posterior pharyngeal wall, lips and gums are without lesions Neck: Well healed midline neck scar. Neck appears symmetric, and on palpation is without masses or lymphadenopathy Thyroid: Surgically absent. Cranial Nerves: II: Pupillary reflexes normal III, IV, : EOM normal V: 1,2,3: normal sensation VII: Normal strength in all divisions IX, X: Normal voice, palatal elevation and sensation XI: Shoulder strength normal XII: Tongue mobility normal Larynx: using the mirror for indirect laryngoscopy, the epiglottic, false cords, true cords, and pyriform sinuses are without lesions and the true vocal cords move normally Procedure: Flexible laryngoscopy was performed because of the following indication: Poor visualization with mirror and/or the need for high resolution imaging of the larynx and dynamic airway. After spraying the nose with xylocaine/neosynephrine, the flexible scope was placed in a transnasal fashion. The nasopharynx, oropharynx, hypopharynx including the pyriform sinuses were normal. The base of tongue showed no gross lesions. The larynx itself showed no lesions. The vocal cords moved well bilaterally. Procedure performed by Grzegorz Cade MD. ASSESSMENT: Mr. Browne is a 53 year old male with episodes of HTN, anxiety, shaking, tachycardia, sweating AND restlessness. He is s/p thyroidectomy which was initially thought to be the cause of his symptoms but they have persisted. We are asked to evaluate a right supraclavicular mass. Per the patient there was concern that this represents a paraganglioma or a carotid body tissue. On our read of the CT neck from 10/04/2018 the is a 3 cm supraclavicular mass in the right neck which most likely represent retained thyroid tissue. PLAN: - Flexible laryngoscopy today - Follow up with endocrinology -- further evaluation and ultrasound biopsy of mass, further hormonal work-up - Will obtain outside records William Jarrell MD For the service of Grzegorz Cade MD October 19, 2018 I participated in the history and physical exam of Nickie Browne. I discussed the management of Nickie Browne with the resident. I reviewed the resident's note and agree with the documented findings and plan of care. Grzegorz Cade MD CNOV Observed: 10/18/2018 Status: COMPLETED Source: [place] 9:15 AM [facility] REPOSITORY Office Visit (OTOLMN) NICKIE BROWNE ([id number]) 1965 M Date Time Provider Department 10/18/18 9:15 AM GRZEGORZ CADE During your visit today, we recorded the following information about you: Respiration Weight Height 20/minute 77.1 kg 1.702 m Trudy Curiel 10/18/2018 9:12 AM Signed Tobacco Use: Never Was smoking cessation packet given? N/A - Patient is a non- smoker or quit >1 year ago. Was a referral initiated?N/A Patient is a non-smoker Grzegorz Cade MD 10/19/2018 8:18 AM Signed OTOLARYNGOLOGY - HEAD AND NECK SURGERY New Patient Consultation This consult was requested by Roseline Root MD for an opinion regarding carotid arteries. My final recommendations will be communicated to the requesting provider by way of shared EMR or letter via the US mail. HPI: Nickie Browne is a 53 year old male with PMHx significant for allergic rhinitis, HTN, OA and past surgical history of thyroidectomy in August 28, 2018. He is here for evaluation of HTN, shaking AND tachycardia that began in June. 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 The pathology showed no malignancy. His main symptoms are high blood pressure, shaking, tachycardia, sweating, restlessness and like he is in high speed mood all the time. He reports that he has attacks once a week but he is always activated He reports that he had epinephrine testing during an episode of his symptoms and reports that his epinephrine was 3 times higher than usual. Those results are not available to us but testing form 08/09/2018 which is available, shows no elevation. He had a CTA on which showed Non vascular structure noted at proximal neck measuring approximately: 3.1 x 1.9 x ?0.9 cm. Highly vascularized tissue noted at the base of the jaw bilaterally, away ?from area of carotid arteries. He had a CT neck on [id number] which showed a right supraclavicular mass. His mother had thyroid issues. He has not had radiation therapy. He is a never smoker. As stated on new patient questionnaire and update in the Past medical history, past surgical history, medications, allergies, family history, social history, and review of systems below. For further details please see patient questionnaire scanned into [employer]. PAST MEDICAL HISTORY Diagnosis Date - Allergic rhinitis, cause unspecified - Carotid body tumor (HCC) - HTN (hypertension) - Multiple thyroid nodules - Osteoarthritis PAST SURGICAL HISTORY Procedure Laterality Date - CARPAL TUNNEL - PAST SURGICAL HISTORY OF 2018 thyroidectomy - REPAIR ING HERNIA,5+Y/O,REDUCIBL Left - THYROIDECTOMY 08/28/2018 Current Outpatient Prescriptions: temazepam (RESTORIL) 30 mg cap Take 30 mg by mouth at bedtime as needed. Disp: Rfl: 0 levothyroxine (SYNTHROID) 100 mcg tablet Take 1 tablet by mouth once daily. Disp: Rfl: metoprolol succinate 100 mg CSpX Take 100 mg by mouth once daily. Disp: Rfl: omeprazole (PRILOSEC) 20 mg capsule Take 20 mg by mouth once daily. Disp: Rfl: mometasone (NASONEX) 50 mcg/Actuation NASAL nasal spray Use in the nose once daily. 2 SPRAYS EACH NOSTRIL DAILY-RINSE MOUTH AFTER USE. Disp: 1 Bottle Rfl: 0 leflunomide (ARAVA) 20 mg tablet Take 20 mg by mouth once daily. Disp: Rfl: meloxicam (MOBIC) 15 mg tablet Take 15 mg by mouth once daily. Disp: Rfl: hydroxychloroquine sulfate (PLAQUENIL ORAL) Take 400 mg by mouth once daily. Disp: Rfl: No current facility-administered medications for this visit. ALLERGIES No Known Allergies FAMILY HISTORY Problem Relation Age of Onset - Thyroid Mother hypothyroid - Hypertension Father - Lipids Father - Heart Father Social History Marital status: Spouse name: Years of education: Number of children: Social History Main Topics Smoking status: Never Smoker Smokeless tobacco: Never Used Alcohol use: Yes Comment: occasional Drug use: No Review of Systems: Eyes - Denies failing vision, double vision Ears - Denies drainage, hearing loss, dizziness, ringing Nose - Denies nosebleeds, drainage, sinus symptoms, nasal obstruction Throat - denies frequent sore throat, lump in neck, hoarseness Lungs - Denies frequent cough, shortness of breath Heart - See HPI Gastrointestinal - Denies stomach pain, nausea, vomiting , diarrhea, bleeding Genitourinary - Denies Burning, bleeding, pain or problems passing urine Neurological - Denies convulsions, seizures, memory loss, headaches Endocrine - Denies heat/cold intolerance, weight gain or loss, hair loss Remainder of ROS negative except for otherwise stated in the HPI above. REVIEW OF RADIOLOGICAL FILMS AND RECORDS: 10/04/2018 On our read there is a 3 cm mass in the right neck which most likely represent retained thyroid tissue. 10/06/2018 RIGHT SIDE ? Non vascular structure noted at proximal neck measuring approximately: 3.1 x 1.9 x ?0.9 cm. Highly vascularized tissue noted at the base of the jaw bilaterally, away ?from area of carotid arteries. ? Common carotid artery: Plaque visualized without evidence of hemodynamically significant stenosis. ? Internal carotid artery: 20-39% stenosis. ? Vertebral artery: Patent and antegrade flow noted. ? LEFT SIDE ? Internal carotid artery: 0-19% stenosis. ? Vertebral artery: Patent and antegrade flow noted. LABS: See 08/09/2018 testing in the chart METANEPHRINES 24H UR Order: [id number] Status: Final result ??Visible to patient: No (Not Released) Next appt: None Dx: Elevated norepinephrine level Ref Range AND Units 2mo ago Metanephrine 52 - 341 ug/24 hr 153 Normetanephrine 88 - 444 ug/24 hr 439 Tot Metanephrine 140 - 785 ug/24 hr 592 Comment: This test was developed and its performance characteristics determined by [facility] [place] ([facility]). It has not been cleared or approved by the FDA. [facility] is regulated under CLIA as qualified to perform high-complexity testing. This test is used for clinical purposes. It should not be regarded as investigational or for research. Ref Range AND Units 2mo ago (08/09/18) 2mo ago (08/09/18) 2mo ago (08/09/18) Period 24 24 24 Urine Volume 2,252 Creatinine, Ur Random (UCRR) mg/dL 61 Creatinine mg/day, Urine 800 - 2,100 mg/d 1,374 Comment: (NOTE) Performed by [facility], [address] [place] [id number] www[email or web address], Vik Napoles MD, Lab. Director Epinephrine, Ur 24hr 1 - 7 ug/d 7 Comment: (NOTE) REFERENCE INTERVAL: Epinephrine, Urine - ug/d Access complete set of age- and/or gender-specific reference intervals for this test in the [facility] Test Directory ([employer]). Norepinephrine, Ur 24hr 16 - 71 ug/d 70 Comment: (NOTE) REFERENCE INTERVAL: Norepinephrine, Urine - ug/d Access complete set of age- and/or gender-specific reference intervals for this test in the [facility] Test Directory ([employer]). Dopamine, Ur 24hr 77 - 324 ug/d 153 Comment: (NOTE) REFERENCE INTERVAL: Dopamine, Urine - ug/d Access complete set of age- and/or gender-specific reference intervals for this test in the [facility] Test Directory ([employer]). Epinephrine, Ur ratio to EQUIPMENT PLANNER 0 - 20 ug/g EQUIPMENT PLANNER 5 Norepinephrine, Ur ratio to EQUIPMENT PLANNER 0 - 45 ug/g EQUIPMENT PLANNER 51 Dopamine, Ur ratio to EQUIPMENT PLANNER 0 - 250 ug/g EQUIPMENT PLANNER 111 Catecholamines Interpretation SEE NOTE PHYSICAL EXAM: Vitals - Resp 20 Ht 170.2 cm (5' 7) Wt 77.1 kg (170 lb) BMI 26.63 kg/m? Constitutional - General Appearance: well developed, well nourished, without obvious deformities Communication: speaks with a normal voice without hoarseness Head AND Face - Overall: no obvious scars, lesions or masses Parotid and submandibular glands: no masses or tenderness Facial strength: normal and equal bilaterally Ear, Nose, Mouth AND Throat - Ears: both left and right external auditory canals and TM's are normal, no external deformities Nasal exam: mucosa is pink, septum is midline, visible turbinates are normal on anterior rhinoscopy Mastication: teeth appear midline Oral Cavity and oropharynx: mucosa, hard and soft palates, tongue, tonsil area, posterior pharyngeal wall, lips and gums are without lesions Neck: Well healed midline neck scar. Neck appears symmetric, and on palpation is without masses or lymphadenopathy Thyroid: Surgically absent. Cranial Nerves: II: Pupillary reflexes normal III, IV, : EOM normal V: 1,2,3: normal sensation VII: Normal strength in all divisions IX, X: Normal voice, palatal elevation and sensation XI: Shoulder strength normal XII: Tongue mobility normal Larynx: using the mirror for indirect laryngoscopy, the epiglottic, false cords, true cords, and pyriform sinuses are without lesions and the true vocal cords move normally Procedure: Flexible laryngoscopy was performed because of the following indication: Poor visualization with mirror and/or the need for high resolution imaging of the larynx and dynamic airway. After spraying the nose with xylocaine/neosynephrine, the flexible scope was placed in a transnasal fashion. The nasopharynx, oropharynx, hypopharynx including the pyriform sinuses were normal. The base of tongue showed no gross lesions. The larynx itself showed no lesions. The vocal cords moved well bilaterally. Procedure performed by Grzegorz Cade MD. ASSESSMENT: Mr. Browne is a 53 year old male with episodes of HTN, anxiety, shaking, tachycardia, sweating AND restlessness. He is s/p thyroidectomy which was initially thought to be the cause of his symptoms but they have persisted. We are asked to evaluate a right supraclavicular mass. Per the patient there was concern that this represents a paraganglioma or a carotid body tissue. On our read of the CT neck from 10/04/2018 the is a 3 cm supraclavicular mass in the right neck which most likely represent retained thyroid tissue. PLAN: - Flexible laryngoscopy today - Follow up with endocrinology -- further evaluation and ultrasound biopsy of mass, further hormonal work-up - Will obtain outside records Chengetai Mahomva, MD For the service of Grzegorz Cade MD October 19, 2018 I participated in the history and physical exam of Nickie Browne. I discussed the management of Nickie Browne with the resident. I reviewed the resident's note and agree with the documented findings and plan of care. Grzegorz Cade MD Referring Provider: ROSELINE ROOT [[id number]] Allergies As of Date: 10/18/2018 (No Known Allergies) Date Reviewed: 10/18/2018 Reviewed by: Trudy Curiel - Fully Assessed Reason for Visit: New Patient [172] Cmt: paraganglioma right neck; thyroidectomy Primary Visit Diagnosis:Supraclavicular mass [R22.2] Order(s):CONSULT TO ENDOCRINOLOGY [9007] Order #: [id number]: 1 Prescriptions as of 10/18/2018 Sig: TEMAZEPAM 30 MG CAPSULE Take 30 mg by mouth at bedtim* LEVOTHYROXINE 100 MCG TABLET Take 1 tablet by mouth once d* METOPROLOL SUCCINATE ER 100 M* Take 100 mg by mouth once sara* OMEPRAZOLE 20 MG CAPSULE,KATIA* Take 20 mg by mouth once warren* MOMETASONE 50 MCG/ACTUATION N* Use in the nose once daily. * LEFLUNOMIDE 20 MG TABLET Take 20 mg by mouth once warren* MELOXICAM 15 MG TABLET Take 15 mg by mouth once warren* PLAQUENIL ORAL Take 400 mg by mouth once sara* Problem List As Of Date 10/18/2018 Noted Resolved UNILAT INGUINAL HERNIA [K40.90] INVALID FOR* Subclinical hyperthyroidism [E05.90] INVALID FOR* Enlarged thyroid gland [E04.9] INVALID FOR* Multiple thyroid nodules [E04.2] INVALID FOR* Visit Notes: >> Trudy Curiel Mon Oct 18, 2018 9:10 AM Status: Signed Tobacco Use: Never Was smoking cessation packet given? N/A - Patient is a non- smoker or quit >1 year ago. Was a referral initiated?N/A Patient is a non-smoker Encounter Status:Closed by GRZEGORZ CADE MD on 10/19/18 CBC W/DIFF, AUTOMATED Collected: 10/09/2018 Status: F Source: [place] 10:03 AM [facility] REPOSITORY Order Comment: SEND RESULTS OF CREATININE,LIVER,AND CBCD TO . SEND RESULTS OF T4,T3,TSH TO TYPE CODE TESTS RESULT OUT OF RANGE REFERENCE UNITS LAB L100.1000 4.4-11.0 K/mm3 Normal WBC 8.0 LAB L100.1200 4.6-6.2 M/mm3 Normal RBC 5.03 LAB L100.1300 13.0-16.5 g/dl Normal HGB 14.7 LAB L100.1400 40-54 % Normal HCT 44.2 LAB L100.1500 80-94 fL Normal MCV 87.9 LAB L100.1600 27.0-32.0 pg Normal MCH 29.2 LAB L100.1700 32-36 g/gl Normal MCHC 33.3 LAB L100.1810 11.6-14.6 % Normal RDW CV 12.6 LAB L100.1820 35.1-43.9 fl Normal RDW SD 40.3 LAB L100.1900 150-450 K/mm3 Normal PLT 287 LAB L100.2000 6.2-12.0 fl Normal MPV 10.2 LAB L100.2100 47-70 % Normal NEUT% 60.1 LAB L100.2200 19-41 % Normal LY% 22.8 LAB L100.2300 0-10 % High MONO% 11.2 LAB L100.2400 0-5 % High EO% 5.1 LAB L100.2500 0-1 % Normal BASO% 0.7 LAB L100.2550 0.0-0.9 % Normal IM GRAN % 0.100 Result Comment: IG% - Immature Granulocytes (promyelocytes, myelocytes and metamyelocytes) > 1% indicates that a LEFT SHIFT is Present. LAB L100.2620 2.0-7.7 X10 3/uL Normal Absolute Neut 4.8 LAB L100.2720 0.83-4.51 X10 3/ul Normal Absolute Lymph 1.83 Performed By: #### L100.0100 #### [facility] [address] [place], [address] LIVER PROFILE Collected: 10/09/2018 Status: F Source: [place] 10:03 AM [facility] REPOSITORY Order Comment: SEND RESULTS OF CREATININE,LIVER,AND CBCD TO . SEND RESULTS OF T4,T3,TSH TO TYPE CODE TESTS RESULT OUT OF RANGE REFERENCE UNITS LAB L501.1500 6.4-8.2 g/dL Normal T PROT 7.5 LAB L501.1800 3.2-5.0 g/dL Normal ALB 3.9 LAB L501.1950 2.2-4.2 g/dL Normal GLOB 3.6 LAB L501.4100 15-37 U/L High AST 40 LAB L501.4305 45-117 U/L Normal ALK P 81 LAB L501.4405 16-61 U/L Normal ALT 50 LAB L501.4600 0.20-1.00 mg/dL Normal T BILI 0.40 LAB L501.4700 0.00-0.30 mg/dL Normal D BILI 0.08 Performed By: #### L500.3400, L501.1105, L501.9310, L501.9520 #### [facility] [address] [place], [place], [id number] SERUM CREATININE AND Collected: 10/09/2018 Status: F Source: [place] GFR 10:03 AM [facility] REPOSITORY Order Comment: SEND RESULTS OF CREATININE,LIVER,AND CBCD TO . SEND RESULTS OF T4,T3,TSH TO TYPE CODE TESTS RESULT OUT OF RANGE REFERENCE UNITS LAB L501.1100 0.70-1.30 mg/dL Normal 1.11 CREAT,SERUM Result Comment: The validity of the calculated GFR AND GFRAA in patients over 70 years has not been determined. Clinical correlation is essential. LAB L501.1110 >60 mL/min Normal EST GFR 74 Result Comment: Non- GFR Calc LAB L501.1115 >60 mL/min Normal EST GFR - AA 90 Result Comment: GFR Calc Performed By: #### L500.3400, L501.1105, L501.9310, L501.9520 #### [facility] [address] [place], [place], [id number] T4 TOTAL, THYROXIN Collected: 10/09/2018 Status: F Source: [place] 10:03 AM [facility] REPOSIT[facility] Order Comment: SEND RESULTS OF CREATININE,LIVER,AND CBCD TO . SEND RESULTS OF T4,T3,TSH TO TYPE CODE TESTS RESULT OUT OF RANGE REFERENCE UNITS LAB L501.9310 4.5-12.1 ug/dL T4 Normal THYROXIN 10.3 Performed By: #### L500.3400, L501.1105, L501.9310, L501.9520 #### [facility] [address] [place], [address] THYROID STIM HORMONE Collected: 10/09/2018 Status: F Source: [place] ([place]) 10:03 AM [facility] REPOSITORY Order Comment: SEND RESULTS OF CREATININE,LIVER,AND CBCD TO . SEND RESULTS OF T4,T3,TSH TO TYPE CODE TESTS RESULT OUT OF RANGE REFERENCE UNITS LAB L501.9520 0.358-3.74 uIU/mL High TSH 5.10 Performed By: #### L500.3400, L501.1105, L501.9310, L501.9520 #### [facility] [address] [place], [place], [address] T3 TOTAL - TRIIODOTHYRONINE Collected: 10/09/2018 Status: F Source: [place] 10:03 AM [facility] Order Comment: SEND RESULTS OF CREATININE,LIVER,AND CBCD TO . SEND RESULTS OF T4,T3,TSH TO TYPE CODE TESTS RESULT OUT OF RANGE REFERENCE UNITS LAB L501.9186 0.6-1.81 ng/mL Normal T3 Total 0.97 Performed By: #### L501.9186 #### [facility] [address] [place], [place], [address] PROGRESS Observed: 10/06/2018 Status: COMPLETED Source: [place] 1:45 PM [facility] REPOSITORY O ID: [id number] Author: Roseline Root MD Service: (none) Author Type: Physician Type: Progress Notes Filed: 10/06/2018 4:33 PM Note Text: VASCULAR SURGERY INITIAL CONSULT SERVICE DATE: 10/06/2018 SERVICE TIME: 1:46 PM PRIMARY CARE PHYSICIAN: Evelia Bains MD REFERRING PROVIDER: Evelia Bains MD [address] [facility] [place] [facility] [id number] Consult requested for an opinion regarding the evaluation and treatment of the above. My final impression and recommendations will be communicated back to the requesting physician by way of the shared medical record or letter via US mail. CHIEF COMPLAINT/HISTORY OF PRESENT ILLNESS: Chief Complaint: Req consult for CBT History of Present Illness: Nickie Browne is a 53 year old male presenting with CBT. Approx 4 mos ago he started having hypertension sx AND sought w/u with his PCP which noted enlarged thyroid AND he underwent total thyroidectomy. He cont to have HTN problems AND further w/u noted the CBT. PAST MEDICAL/SURGICAL/FAMILY/SOCIAL HISTORY PAST MEDICAL HISTORY Diagnosis Date - Allergic rhinitis, cause unspecified - Carotid body tumor (HCC) - HTN (hypertension) - Multiple thyroid nodules - Osteoarthritis PAST SURGICAL HISTORY Procedure Laterality Date - CARPAL TUNNEL - PAST SURGICAL HISTORY OF 2018 thyroidectomy - REPAIR ING HERNIA,5+Y/O,REDUCIBL Left FAMILY HISTORY Problem Relation Age of Onset - Thyroid Mother hypothyroid - Hypertension Father - Lipids Father - Heart Father SOCIAL HISTORYSocial History Marital status: Spouse name: Years of education: Number of children: Social History Main Topics Smoking status: Never Smoker Smokeless tobacco: Never Used Alcohol use: Yes Comment: occasional Drug use: No MEDICATIONS/ALLERGIES Current Outpatient Prescriptions: temazepam (RESTORIL) 30 mg cap Take 30 mg by mouth at bedtime as needed. Disp: Rfl: 0 leflunomide (ARAVA) 20 mg tablet Take 20 mg by mouth once daily. Disp: Rfl: meloxicam (MOBIC) 15 mg tablet Take 15 mg by mouth once daily. Disp: Rfl: hydroxychloroquine sulfate (PLAQUENIL ORAL) Take 400 mg by mouth once daily. Disp: Rfl: metoprolol succinate 100 mg CSpX Take 100 mg by mouth once daily. Disp: Rfl: omeprazole (PRILOSEC) 20 mg capsule Take 20 mg by mouth once daily. Disp: Rfl: mometasone (NASONEX) 50 mcg/Actuation NASAL nasal spray Use in the nose once daily. 2 SPRAYS EACH NOSTRIL DAILY-RINSE MOUTH AFTER USE. Disp: 1 Bottle Rfl: 0 levothyroxine (SYNTHROID) 100 mcg tablet Take 1 tablet by mouth once daily. Disp: Rfl: No current facility-administered medications for this visit. ALLERGIES No Known Allergies REVIEW OF SYSTEMS Constitutional: No weight loss, malaise or fevers. Pt reports the jitters AND insomnia HEENT: Negative for frequent or significant headaches Respiratory: Negative for cough, wheezing, or shortness of breath Cardiovascular: Negative for chest pain, leg swelling or palpitations Gatrointestinal: Negative for abdominal discomfort, blood in stools or black stools or change in bowel habits. Some constipation AND loose stools Genitourinary: No history of dysuria, frequency, or incontinence Musculoskeletal: Negative for joint pain or swelling, back pain or muscle pain. + OA on several meds Endocrine: Negative for cold or heat intolerance, polyuria, polydipsia and goiter Hematology/Lymphatic: Negative for prolonged bleeding, bruising easily or swollen nodes Neurologic: No history or headaches, syncope, paralysis, seizures or tremors Integumentary: Negative for lesions, rash, and itching. Tests: MRI, CT, echo: see report Patricia Monique RN PHYSICAL EXAM VITALS: BP 143/75 Pulse 96 Temp (Src) 98.2 (Oral) Resp 18 Ht 5' 7 (1.70m) Wt 171 lb (77.6kg) SpO2 98% BMI 26.78 kg/(m2). General: Alert and oriented Integumentary: Normal color, no rash, no lesions. HEENT: EOM, pupils equal, round and reactive. Cardiovascular: Normal S1 AND S2, no rubs, murmurs or gallops. No JVD., Pulse regular. Lungs: Normal breath sounds, no wheezes or crackles. Abdomen: Soft, non-tender, no rigidity. Extremities: No deformity, no edema or tenderness, no joint swelling or clubbing. Neurological: Normal cognition and motor skills. Vascular: Pulses: Carotid Pulse Right: Normal Left: Normal Brachial Pulse Right: Normal Left: Normal Radial Pulse Right: Normal Left: Normal Femoral Pulse Right: Normal Left: Normal Popliteal Pulse Right: Normal Left: Normal Posterior Tibial Right: N/A Left: Normal Dorsalis Pedal Right: Normal Left: Normal ASSESSMENT This office note has been dictated. Roseline Root MD Diagnostic tests reviewed for today's visit: Most recent labs Most recent imaging PLAN/RECOMMENDATIONS This office note has been dictated. Roseline Root MD SIGNATURE: Roseline Root MD, MD PATIENT NAME: Nickie Browne DATE: October 06, 2018 TIME: 1:45 PM CNOV Observed: 10/06/2018 Status: COMPLETED Source: [place] 1:00 PM [facility] REPOSITORY Office Visit (ART) NICKIE BROWNE ([id number]) 1965 M Date Time Provider Department 10/06/18 1:00 PM ROSELINE ROOT During your visit today, we recorded the following information about you: Temperature Pulse Respiration Blood pressure 98.2 degrees 96/minute 18/minute 143/75 Weight Height 77.6 kg 1.702 m Roseline Root MD, MD 10/06/2018 4:33 PM Signed VASCULAR SURGERY INITIAL CONSULT SERVICE DATE: 10/06/2018 SERVICE TIME: 1:46 PM PRIMARY CARE PHYSICIAN: Evelia Bains MD REFERRING PROVIDER: Evelia Bains MD [address] [facility] [address] Consult requested for an opinion regarding the evaluation and treatment of the above. My final impression and recommendations will be communicated back to the requesting physician by way of the shared medical record or letter via US mail. CHIEF COMPLAINT/HISTORY OF PRESENT ILLNESS: Chief Complaint: Req consult for CBT History of Present Illness: Nickie Browne is a 53 year old male presenting with CBT. Approx 4 mos ago he started having hypertension sx AND sought w/u with his PCP which noted enlarged thyroid AND he underwent total thyroidectomy. He cont to have HTN problems AND further w/u noted the CBT. PAST MEDICAL/SURGICAL/FAMILY/SOCIAL HISTORY PAST MEDICAL HISTORY Diagnosis Date - Allergic rhinitis, cause unspecified - Carotid body tumor (HCC) - HTN (hypertension) - Multiple thyroid nodules - Osteoarthritis PAST SURGICAL HISTORY Procedure Laterality Date - CARPAL TUNNEL - PAST SURGICAL HISTORY OF 2018 thyroidectomy - REPAIR ING HERNIA,5+Y/O,REDUCIBL Left FAMILY HISTORY Problem Relation Age of Onset - Thyroid Mother hypothyroid - Hypertension Father - Lipids Father - Heart Father SOCIAL HISTORYSocial History Marital status: Spouse name: Years of education: Number of children: Social History Main Topics Smoking status: Never Smoker Smokeless tobacco: Never Used Alcohol use: Yes Comment: occasional Drug use: No MEDICATIONS/ALLERGIES Current Outpatient Prescriptions: temazepam (RESTORIL) 30 mg cap Take 30 mg by mouth at bedtime as needed. Disp: Rfl: 0 leflunomide (ARAVA) 20 mg tablet Take 20 mg by mouth once daily. Disp: Rfl: meloxicam (MOBIC) 15 mg tablet Take 15 mg by mouth once daily. Disp: Rfl: hydroxychloroquine sulfate (PLAQUENIL ORAL) Take 400 mg by mouth once daily. Disp: Rfl: metoprolol succinate 100 mg CSpX Take 100 mg by mouth once daily. Disp: Rfl: omeprazole (PRILOSEC) 20 mg capsule Take 20 mg by mouth once daily. Disp: Rfl: mometasone (NASONEX) 50 mcg/Actuation NASAL nasal spray Use in the nose once daily. 2 SPRAYS EACH NOSTRIL DAILY-RINSE MOUTH AFTER USE. Disp: 1 Bottle Rfl: 0 levothyroxine (SYNTHROID) 100 mcg tablet Take 1 tablet by mouth once daily. Disp: Rfl: No current facility-administered medications for this visit. ALLERGIES No Known Allergies REVIEW OF SYSTEMS Constitutional: No weight loss, malaise or fevers. Pt reports the jitters AND insomnia HEENT: Negative for frequent or significant headaches Respiratory: Negative for cough, wheezing, or shortness of breath Cardiovascular: Negative for chest pain, leg swelling or palpitations Gatrointestinal: Negative for abdominal discomfort, blood in stools or black stools or change in bowel habits. Some constipation AND loose stools Genitourinary: No history of dysuria, frequency, or incontinence Musculoskeletal: Negative for joint pain or swelling, back pain or muscle pain. + OA on several meds Endocrine: Negative for cold or heat intolerance, polyuria, polydipsia and goiter Hematology/Lymphatic: Negative for prolonged bleeding, bruising easily or swollen nodes Neurologic: No history or headaches, syncope, paralysis, seizures or tremors Integumentary: Negative for lesions, rash, and itching. Tests: MRI, CT, echo: see report Patricia Monique RN PHYSICAL EXAM VITALS: BP 143/75 Pulse 96 Temp (Src) 98.2 (Oral) Resp 18 Ht 5' 7 (1.70m) Wt 171 lb (77.6kg) SpO2 98% BMI 26.78 kg/(m2). General: Alert and oriented Integumentary: Normal color, no rash, no lesions. HEENT: EOM, pupils equal, round and reactive. Cardiovascular: Normal S1 AND S2, no rubs, murmurs or gallops. No JVD., Pulse regular. Lungs: Normal breath sounds, no wheezes or crackles. Abdomen: Soft, non-tender, no rigidity. Extremities: No deformity, no edema or tenderness, no joint swelling or clubbing. Neurological: Normal cognition and motor skills. Vascular: Pulses: Carotid Pulse Right: Normal Left: Normal Brachial Pulse Right: Normal Left: Normal Radial Pulse Right: Normal Left: Normal Femoral Pulse Right: Normal Left: Normal Popliteal Pulse Right: Normal Left: Normal Posterior Tibial Right: N/A Left: Normal Dorsalis Pedal Right: Normal Left: Normal ASSESSMENT This office note has been dictated. Roseline Root MD Diagnostic tests reviewed for today's visit: Most recent labs Most recent imaging PLAN/RECOMMENDATIONS This office note has been dictated. Roseline Root MD SIGNATURE: Roseline Root MD, MD PATIENT NAME: Nickie Browne DATE: October 06, 2018 TIME: 1:45 PM Referring Provider: EVELIA BAINS [[id number]] Allergies As of Date: 10/06/2018 (No Known Allergies) Date Reviewed: 10/06/2018 Reviewed by: Liyah Solomon Ma - Fully Assessed Reason for Visit: New Patient Evaluation [154] Primary Visit Diagnosis:Supraclavicular mass [R22.2] Other Visit Diagnosis:Enlarged thyroid gland [E04.9] Order(s):CONSULT TO ENT [9008] Order #: [id number]: 1 Prescriptions as of 10/06/2018 Sig: TEMAZEPAM 30 MG CAPSULE Take 30 mg by mouth at bedtim* LEFLUNOMIDE 20 MG TABLET Take 20 mg by mouth once warren* MELOXICAM 15 MG TABLET Take 15 mg by mouth once warren* PLAQUENIL ORAL Take 400 mg by mouth once sara* METOPROLOL SUCCINATE ER 100 M* Take 100 mg by mouth once sara* OMEPRAZOLE 20 MG CAPSULE,KATIA* Take 20 mg by mouth once warren* MOMETASONE 50 MCG/ACTUATION N* Use in the nose once daily. * LEVOTHYROXINE 100 MCG TABLET Take 1 tablet by mouth once d* Problem List As Of Date 10/06/2018 Noted Resolved UNILAT INGUINAL HERNIA [K40.90] INVALID FOR* Subclinical hyperthyroidism [E05.90] INVALID FOR* Enlarged thyroid gland [E04.9] INVALID FOR* Multiple thyroid nodules [E04.2] INVALID FOR* Medications Discontinued During This Encounter amoxicillin 500 mg ORAL capsule 40 c* 0 05/19/2011 10/06/2018 Class: Print RX Route: ORAL Sig: Take 1 capsule by mouth. 2 pills twice daily FOR 10 DAYS. Disc: Course of therapy completed Encounter Status:Closed by ROSELINE ROOT MD on 10/06/18 PROGRESS Observed: 10/06/2018 Status: COMPLETED Source: [place] 12:00 AM [facility] REPOSITORY HNO ID: [id number] Author: Roseline Root MD Service: Vascular Surgery Author Type: Physician Type: Progress Notes Filed: 10/09/2018 4:30 PM Note Text: NAME: NICKIE BROWNE [facility] NO: [id number] DATE OF SERVICE: 10/06/2018 DATE OF : 1965 Please see Epic note for full details. History of Present Illness: He is a 53-year-old male presenting with a possible carotid body tumor. The patient was noted to have a mass around the base of the right carotid artery. It is just in the supraclavicular region. This was noted on a CT scan. It was found after he had some hypertensive episodes after a goiter resection. This goiter had some mediastinal involvement. The concern is that this tumor is a paraganglioma. However, the vice president of nursing, Dr. Jones, has evaluated this patient and found that there are no catecholamines or metanephrines that are noted. A 24-hour urine was negative. An MIBG scan was negative for paraganglioma or pheochromocytoma. I am not sure the etiology of this right proximal common carotid mass. Physical Examination: The mass cannot be palpated at this time. He is still somewhat swollen from his thyroid removal. He does not smoke and has never smoked. Assessment: Right-sided tumor anterior to the right common carotid in the proximal portion. Plan: We will send the patient to ENT for evaluation to rule out any other masses at this time before attempting resection. Follow up with me after seeing CT scan for evaluation. I recommended the patient go back to Dr. Jones for further evaluation. Potentially, we can send the patient for labs for dopamine or VMAs. Roseline Root DH/089 Audio #: [id number] Date Dictated: 10/06/2018 16:16:05 Date Typed: 10/08/2018 09:36:50 Date Revised: CNCO Observed: 10/06/2018 Status: COMPLETED Source: [place] 12:00 AM [facility] REPOSITORY Letter Text Roseline Root MD Department of Vascular Surgery [address] [facility] [place] [id number] Office: [phone] Appointments: [phone] October 12, 2018 Evelia Bains MD [address] [place] [address] NAME: Nickie Browne [facility] NO.: [id number] : 1965 DATE OF SERVICE: 10/06/[address] Bains: Your patient, Mr. Browne, was seen by me in the office for a consult. The details of his treatment plan are included in my office note, a copy of which is included for your interest and records. I appreciate the opportunity to participate in Mr. Browne's evaluation and treatment. If I can provide further information, please do not hesitate to contact me. Sincerely yours, Roseline Root MD (Signed electronically to expedite mailing) /kk Enclosure SOFT TISSUE NECK WITH Observed: 09/27/2018 Status: F Source: [place] CONTRAST 7:29 AM [facility] REPOSITORY [facility] Imaging Services [address] [place] [id number] Soft Tissue Neck WITH Contrast MR#: [id number] Acct: [id number] Name: NICKIE BROWNE Rep #: [id number] : 1965 M 53 From: Shaan Reese MD PCP: Evelia Bains MD Status: REG CLI Study: Soft Tissue Neck WITH Contrast Date of Exam: 09/27/18 Exam# [id number] Ordering Dr: Evelia Bains MD 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 RADIATION DOSAGE (If Supplied By Facility): CTDIvol = ( 16.99 ) mGy, DLP = ( 1317.32 ) mGycm TECHNIQUE: The patient was scanned in a multi-detector CT scanner. High resolution transaxial imaging was performed following intravenous administration of 100 ml of Isovue 300 contrast material. Sagittal and coronal images were reconstructed. Individualized dose optimization techniques were used for this CT. COMPARISON: None. FINDINGS: Normal bilateral parotid glands. Normal bilateral classified ad clerk spaces. Normal bilateral parapharyngeal spaces. Normal bilateral carotid spaces. Normal bilateral sublingual and submandibular glands and spaces. Normal visualized nasopharynx. Normal retropharyngeal space. Normal perivertebral space. Normal visualized bilateral faucial tonsils. The visualized tongue, tongue base and oropharynx are normal. The visualized cervical lymph nodes (levels I-) are within normal size limits, and maintain normal morphology. There is no demonstrated solid or cystic mass lesion. There is no abnormal contrast enhancement. Normal epiglottis, bilateral vallecula and hypopharynx. The pre-epiglottic and paraglottic adipose spaces are normal. Normal visualized bilateral piriform sinuses, aryepiglottic folds, vocal cords, and arytenoid-cricoid articulations. Normal subglottic trachea. Surgical clips are seen in the region of the thyroid gland. There is a 2.3 cm x 1.4 cm x 3.2 cm inhomogeneously enhancing cystic and solid mass in the right supraclavicular region. This lies cephalad to the medial aspect of the right clavicle. This corresponds to the increased uptake on the nuclear medicine MIBG examination. Normal visualized pulmonary apices. Partial opacification of the ethmoid sinuses bilaterally. There is multilevel degenerative changes of the cervical spine. CT/Soft Tissue Neck WITH Contrast IMPRESSION: There is a 2.3 cm x 1.4 cm x 3.2 cm inhomogeneously enhancing cystic and solid mass in the right supraclavicular region adjacent to the medial right clavicle. This corresponds to the abnormality seen on the nuclear medicine MIBG scan. The patient is status post thyroidectomy. Electronically Signed: Shaan Reese MD at 15:58 EST Tel [phone], Service support , CC: Evelia Bains MD Business Objects Architect: Signed CHEST WITH CONTRAST Observed: 09/27/2018 Status: F Source: [place] 7:29 AM [facility] REPOSITORY [facility] Imaging Services [address] [place] [address] Chest WITH Contrast MR#: [id number] Acct: [id number] Name: NICKIE BROWNE Rep #: [id number] : 1965 M 53 From: Lizeth Traylor MD PCP: Evelia Bains MD Status: REG CLI Study: Chest WITH Contrast Date of Exam: 09/27/18 Exam# [id number] Ordering Dr: Evelia Bains MD STUDY: CT CHEST WITH CONTRAST REASON FOR EXAM: Male, 53 years old. Ankle trauma, elevated epinephrine thyroidectomy RADIATION DOSAGE (If Supplied By Facility): CTDIvol = ( ) mGy, DLP = ( 331.51 ) mGycm TECHNIQUE: Transaxial imaging was performed following intravenous administration of 100 ml of matrix 300 contrast material. Multiplanar coronal and sagittal images were reformatted. Individualized dose optimization techniques were used for this CT. COMPARISON: None. FINDINGS: There is postoperative change status post thyroidectomy. There is a mass anterior to the carotid artery lateral to the thyroid tissue that measures 2.2 x 1.1 cm in the transverse view. It appears to be hugging or likely a bilobed structure hugging the right side proximal carotid artery at the bifurcation of the subclavian. See image #74 of the coronal views and image #13 of the axial views. The right limb of the peripherally enhancing low attenuating central structure measures 2.2 cm. On the left lobe measuring 2.4 cm. There is a trace focus of groundglass opacity within the left lower lobe posteriorly. There is a subtle focus of nodular density within the left lower lobe measuring 4.9 mm. There is also a small focal nodule in this aspect of the left lower lobe best seen on the sagittal view in 119 series 602. There is a subtle focus of groundglass opacity within the right upper lobe image #99 of the coronal views were made of the axial views. There is no demonstrated pleural abnormality. Normal heart and pericardium. There is a lymph node in the AP window left measuring 9.9 mm. There is a lymph node high in the gerri measuring 6.9 mm. Normal hilar regions. Normal enhanced pulmonary arteries. Normal aorta arch and descending thoracic aorta. There are multilevel Schmorl's nodes. There is degenerative change of the thoracic spine. The adrenal glands appear grossly normal. CT/Chest WITH Contrast IMPRESSION: There is a hypodense mass with peripheral enhancement at the base of the common carotid artery just at the branch point of the subclavian and the common carotid artery. This is approximately lateral to the thyroid. This is a mass that is peripherally enhancing and not necessarily diffusely enhancing. Could consider ectopic thyroid material, atypical pheochromocytoma, para ganglioma, schwannoma, could also consider metastatic carcinoid. Peripheral enhancing masses with central low attenuation can be associated with necrotic tumors including squamous cell carcinoma. Recommend consideration for neck MRI with gadolinium. There is nonspecific areas of patchy and was groundglass opacities as detailed above suspicious most likely atypical infiltrates however early metastatic disease in the appropriate clinical setting could have this appearance. Electronically Signed: Lizeth Traylor MD at 19:20 EST Tel , Service support , CC: Evelia Bains MD Business Objects Architect: Signed CT OUTSIDE CD DICOM Observed: 09/27/2018 Status: F Source: [facility] 12:00 AM [facility] REPOSITORY Images were obtained outside of [facility] [id number] CT OUTSIDE CD DICOM Observed: 09/27/2018 Status: F Source: [place] [facility] 12:00 AM [facility] REPOS[facility] Images were obtained outside of [facility] [id number] [place] OUTSIDE CD DICOM Observed: 09/22/2018 Status: F Source: [place] [facility] 12:00 AM [facility] REPOSITORY Images were obtained outside of [facility] [id number] TUMOR LOCALIZATION MULTI Observed: 09/21/2018 Status: F Source: [facility] 12:32 PM [facility] RE[facility] Imaging Services [address] [place] [address] Tumor Localization Multi Areas MR#: [id number] Acct: [id number] Name: NICKIE BROWNE Rep #: [id number] : 1965 M 53 From: Nickie Romero DO PCP: Evelia Bains MD Status: REG CLI Study: Tumor Localization Multi Areas Date of Exam: 09/21/18 Exam# [id number] Ordering Dr: Evelia Bains MD CLINICAL: 53-year-old male with history of evaluation of the serum catecholamine levels. I-123 METAIODOBENZYLGUANIDINE (MIBG) SCINTIGRAPHY COMPARISON: CT of the abdomen-pelvis report 07/13/2018 FINDINGS: Following the intravenous administration of 10.5 mCi of I- 123 MIBG, whole body acquisitions obtained at 24 hours, spot planar projections of the chest, abdomen and pelvis obtained at 48 hours post radiopharmaceutical administration reveal: 1. Asymmetric increased radiopharmaceutical concentration is identified in the right anterior neck most consistent with visualization of the right lobe of thyroid colloid defined on thyroid ultrasound dated 07/06/2018. 2. Physiologic distribution of the radiopharmaceutical appears evident in the hepatic and splenic parenchyma, the right and left adrenal medulla, the urinary bladder. NM/Tumor Localization Multi Areas IMPRESSION: 1. NEGATIVE I-123 METAIODOBENZYLGUANIDINE (MIBG) SCINTIGRAPHY 2. There is no current typical scintigraphic evidence of paraganglioma, pheochromocytoma on the current evaluation. Electronically Signed: Nickie Romero DO at 22:21 EDT Tel , Service support , CC: Evelia Bains MD Business Objects Architect: Signed 12 LEAD EKG PERFORMED Observed: 09/10/2018 Status: F Source: [place] BY [facility] 7:57 AM [facility] REPOSITORY [place] [address] [place] [address] 12 Lead EKG performed by [facility] 09/10/18 0755 MR#: [id number] Acct: [id number] Name: HOLLIENICKIE Rep #: [id number] : 1965 53 From: Nish Herrera MD Attending Dr: Nish Herrera MD Status: DEP AMB Ordering Dr: Nish Herrera MD Date: 09/10/18 Location: [facility] Sex: M C Admitted: BMS/12 Lead EKG performed by [facility] ECG Report Interpretation Sinus Rhythm -Nonspecific ST depression + Nonspecific T-abnormality -Nondiagnostic. ABNORMAL Electronically signed on 12/14/2018 at 16:22 by Nish Herrerawood Software Version 8610 12/14/18 1625 Date Nish Herrera MD CC: Evelia Bains MD Date Dictated: 09/10/18754 Date Transcribed: 09/10/18754 Business Objects Architect: CO Signed CNPN Observed: 09/09/2018 Status: COMPLETED Source: [place] 12:00 AM [facility] REPOSITORY Telephone (Mapittrackit) NICKIE BROWNE ([id number]) 1965 M IPA Date Time Provider Department 09/09/18 KATALINA JONES During your visit today, we recorded the following information about you: Nikki Lama Ma 09/09/2018 8:13 AM Signed Office Note on docs desk/basket for review from [facility]. Please review Katalina Jones MD 09/09/2018 12:29 PM Signed Reviewed, please fax the results of urine metanephrines and catecholamines to Dr.Eric Rodriguez office This screen was negative, which rules out Pheochromocytoma This seems to be there concern despite the fact that his screen was negative can contact me directly if he has any questions Katalina Jones MD 09/09/18 Nikki Lama Ma 09/09/2018 1:07 PM Signed Lab results and message from Dr. Jones faxed to office at [phone] on September 09, 2018; transmission ok. Magi Cash RN 09/09/2018 3:27 PM Signed Patient's called. Below message was provided to her. She should refer back to Dr Rodriguez from here. Allergies As of Date: 09/09/2018 (No Known Allergies) Date Reviewed: 08/05/2018 Reviewed by: Katalina Jones - Fully Assessed Reason for Visit: Office Note [Other] Cmt: [facility] Prescriptions as of 09/09/2018 Sig: LEFLUNOMIDE 20 MG TABLET Take 20 mg by mouth once warren* MELOXICAM 15 MG TABLET Take 15 mg by mouth once warren* PLAQUENIL ORAL Take 400 mg by mouth once sara* METOPROLOL SUCCINATE ER 100 M* Take 100 mg by mouth once sara* OMEPRAZOLE 20 MG CAPSULE,KATIA* Take 20 mg by mouth once warren* AMOXICILLIN 500 MG CAPSULE Take 1 capsule by mouth. 2 pi* MOMETASONE 50 MCG/ACTUATION N* Use in the nose once daily. * Problem List As Of Date 09/09/2018 Noted Resolved UNILAT INGUINAL HERNIA [K40.90] INVALID FOR* Subclinical hyperthyroidism [E05.90] INVALID FOR* Enlarged thyroid gland [E04.9] INVALID FOR* Multiple thyroid nodules [E04.2] INVALID FOR* Encounter Status:Closed by NIKKI LAMA MA on 09/09/18 MISCELLANEOUS LAB Collected: 09/02/2018 Status: F Source: [place] PROCEDURE 11:56 AM [facility] REPOSITORY Order Comment: Comments: #[id number] Epinephrine Frozen Plasma Test(s) Ordered: #[id number] Epinephrine Frozen Plasma TYPE CODE TESTS RESULT OUT OF RANGE REFERENCE UNITS LAB L801.1541 Normal MISC LAB TEST Result Comment: TEST RESULT FLAG UNITS REF INTERVAL Epinephrine, Plasma 192 HIGH pg/mL 0 - 62 TESTING PERFORMED AT [facility]. ORIGINAL REPORT ON FILE IN LAB CONTAINS ADDITIONAL TEST SITE INFORMATION. Performed By: #### L801.1541 #### [facility] [address] [place], [address] BASIC METABOLIC Collected: 08/31/2018 Status: F Source: [place] PROFILE (BMP) 11:56 AM [facility] REPOSITORY TYPE CODE TESTS RESULT OUT OF RANGE REFERENCE UNITS LAB L501.0100 74-106 mg/dL High GLU 132 Result Comment: Fasting Glucose result greater than or equal to 126 mg/dL suggests DIABETES MELLITUS per A.D.A. criteria. Please note revised GLUCOSE reference range effective 2017. LAB L501.1000 7-18 mg/dL Normal BUN 12 LAB L501.1100 0.70-1.30 mg/dL Normal CREAT,SERUM 1.12 Result Comment: The validity of the calculated GFR AND GFRAA in patients over 70 years has not been determined. Clinical correlation is essential. LAB L501.1110 >60 mL/min Normal EST GFR 73 Result Comment: Non- GFR Calc LAB L501.1115 >60 mL/min Normal EST GFR - AA 89 Result Comment: GFR Calc LAB L501.1300 10-20 RATIO Normal BUN/CRE 10.7 LAB L501.2200 8.5-10.1 mg/dL CA Normal 8.5 LAB L501.5300 136-145 mmol/L NA Normal 137 LAB L501.5600 3.5-5.1 mmol/L K Normal 4.1 LAB L501.5900 98-107 mmol/L CL Normal 102 LAB L501.6100 21.0-32.0 mmol/L Normal CO2 26.0 LAB L501.6200 5-15 Normal GAP 9 Performed By: #### L500.2500, L501.5200 #### [facility] [address] [place], [address] MAGNESIUM Collected: 08/31/2018 Status: F Source: [place] 11:56 AM [facility] REPOSITORY TYPE CODE TESTS RESULT OUT OF RANGE REFERENCE UNITS LAB L501.5200 1.6-2.6 mg/dL Normal MG 2.0 Performed By: #### L500.2500, L501.5200 #### [facility] [address] [place], [address] PTHIN Collected: 08/31/2018 Status: F Source: [place] 11:56 AM [facility] REPOSITORY TYPE CODE TESTS RESULT OUT OF RANGE REFERENCE UNITS LAB L509.1000 18.4-80.1 pg/mL Normal PTHIN 21.2 Performed By: #### L509.1000 #### [facility] [address] [place], [address] CALCIUM,TOTAL Collected: 08/28/2018 Status: F Source: [place] 6:55 AM [facility] REPOSITORY TYPE CODE TESTS RESULT OUT OF RANGE REFERENCE UNITS LAB L501.2200 8.5-10.1 mg/dL Low CA 8.4 Performed By: #### L501.2200 #### [facility] [address] [place], [address] CALCIUM,TOTAL Collected: 08/27/2018 Status: F Source: [place] 11:02 AM [facility] REPOSITORY TYPE CODE TESTS RESULT OUT OF RANGE REFERENCE UNITS LAB L501.2200 8.5-10.1 mg/dL Low CA 8.4 Performed By: #### L501.2200 #### [facility] [address] [place], [address] BEDSIDE GLUCOSE Collected: 08/27/2018 Status: F Source: [place] 10:28 AM [facility] REPOSITORY TYPE CODE TESTS RESULT OUT OF REFERENCE UNITS RANGE LAB L501.080 70-110 mg/dL High BEDSIDE GLU 132 Result Comment: MANAGEMENT OF PATIENT CARE PER NURSING PROTOCOL Performed By: #### L501.080 #### [facility] Point of Care [address] [place] [address] DISCHARGE INSTRUCTION Observed: 08/27/2018 Status: F Source: [place] 10:26 AM [facility] REPOSITORY [facility] Medical Records Department [address] [place] [address] Instructions for Home/Discharge Instructions 08/27/18 1025 MR#: [id number] Acct: [id number] Name: NICKIE BROWNE Rep #: [id number] : 1965 53 From: Cathy Rodriguez MD PCP: Evelia Bains MD Status: REG [facility] You will use the following diet at home:: No restrictions Discharge Activity: Return to Normal Activity, May not drive while taking narcotic pain medications. Call your doctor if your incision/area has: Sudden Increased Bleeding, Increased Pain/ Swelling, Increased Redness, Swelling at the incision site Call your doctor if you observe: Fever of 101 or Higher, Uncontrolled pain Cleanse incision/area with: Keep Dressing Clean AND Dry Allergies/Adverse Reactions: Allergies No Known Allergies Allergy (Verified 08/26/18 09:57) Medications to take at Discharge RX: Meloxicam [Mobic] 15 mg PO DAILY 07/18/16 RX: Hydroxychloroquine [Plaquenil] 400 mg PO QHS 03/01/17 RX: Leflunomide [Arava] 20 mg PO QHS 03/01/17 glucosamine sulfate 500 mg tablet 1,000 mg PO QDAY tab 07/13/18 loratadine 10 mg tablet 10 mg PO QDAY 07/13/18 metoprolol tartrate 50 mg tablet 50 mg PO QDAY tab 07/13/18 mometasone 50 mcg/actuation nasal spray 2 spray INTRANASAL QDAY 07/13/18 Multivitamin [Multiple Vitamins] 1 each PO DAILY 08/26/18 RX: Cranberry 500 mg PO DAILY 08/26/18 RX: Prednisone 10 mg PO PRN PRN 08/26/18 Primary Care Physician: Evelia Bains MD [Primary Care Provider] - Test Results: Test results from this visit will be discussed in further detail at your follow-up appointment, if applicable. Please Follow Up With: Cathy Rodriguez MD When: 2 weeks 08/27/18 1026 <Electronically signed by Cathy Rodriguez MD> Date Cathy Rodriguez MD CC: Evelia Bains MD BASIC METABOLIC Collected: 08/27/2018 Status: F Source: [place] PROFILE (BMP) 6:12 AM [facility] REPOSITORY TYPE CODE TESTS RESULT OUT OF RANGE REFERENCE UNITS LAB L501.0100 74-106 mg/dL Normal GLU 103 Result Comment: Fasting Glucose result from 100 to 125 mg/dL suggests IMPAIRED HOMEOSTASIS per A.D.A. criteria. Please note revised GLUCOSE reference range effective 2017. LAB L501.1000 7-18 mg/dL Normal BUN 13 LAB L501.1100 0.70-1.30 mg/dL Normal CREAT,SERUM 1.02 Result Comment: The validity of the calculated GFR AND GFRAA in patients over 70 years has not been determined. Clinical correlation is essential. LAB L501.1110 >60 mL/min Normal EST GFR 82 Result Comment: Non- GFR Calc LAB L501.1115 >60 mL/min Normal EST GFR - AA 99 Result Comment: GFR Calc LAB L501.1255 ml/min Normal Estimated CRCL 77.32 LAB L501.1300 10-20 RATIO Normal BUN/CRE 12.7 LAB L501.2200 8.5-10 mg/dL Normal .1 CA 8.7 LAB L501.5300 136-14 mmol/L Normal 5 NA 140 LAB L501.5600 3.5-5. mmol/L Normal 1 K 4.1 LAB L501.5900 98-107 mmol/L Normal CL 107 LAB L501.6100 21.0-3 mmol/L Normal 2.0 CO2 26.0 LAB L501.6200 5-15 Normal GAP 7 Performed By: #### L500.2500 #### [facility] [address] [place], [address] THYROID (TOTAL/LOBE) Observed: 08/27/2018 Status: F Source: [place] 12:00 AM [facility] REPOSITORY Patient: NICKIE BROWNE : 1965 (53/M) Acct Num: [id number] Phys: Cathy Rodriguez MD Unit Num: [id number] Loc: MS3 [id number] Specimen: [id number] Received: 08/27/1854 Spec Type: THYROID TISSUES 1 TISSUES: A. Thyroid gland, NOS - LEFT B. Thyroid gland, NOS - RIGHT COMMENT Please make reference to previous specimen ([id number]), left thyroid nodule, FNA with diagnosis of consistent with benign follicular nodule. FROZEN SECTION DIAGNOSIS A. Left thyroid lobe, lobectomy: Multinodular goiter. B. Right thyroid lobe with substernal component, lobectomy: Multinodular goiter. SJ:leah 08/27/18 GROSS DESCRIPTION A - Received fresh for frozen section diagnosis labeled with the patient's name is a specimen designated left thyroid lobe. The specimen consists of a multinodular left thyroid lobectomy specimen weighing 37.2 gm and measuring 8 x 6 x 3 cm. No external parathyroid tissue is identified. The specimen is inked as follows: anterior surface - black, posterior surface - blue. Serial sections reveal multiple nodules with the largest nodule measuring 2 cm in greatest dimension. Sections of these nodules reveal colloidy cut surfaces. A section is submitted for frozen section diagnosis. Ict Developer sections are submitted in 12 cassettes. Cassette 1 contains the frozen section of the largest nodule. B - Received fresh for frozen section diagnosis labeled with the patient's name is a specimen designated right thyroid lobe with substernal component. The specimen consists of a thyroid lobectomy specimen weighing 37.4 gm and measuring 11 x 5 x 3.5 cm. No external parathyroid tissue is identified. The specimen is inked as follows: anterior - black, posterior - blue. Sections reveal multinodular cut surfaces. The largest nodule measures 2 cm in greatest dimension. A section from the largest nodule is submitted for frozen section diagnosis. Ict Developer sections are submitted in 12 cassettes. Cassette 1 contains the frozen section. / COURTNEY:leah 08/27/18 TC:5 CPT: 89705 x2, 69160 x2 HEADER OPERATION: Thyroidectomy PRE-OP DIAGNOSIS: Nontoxic multinodular goiter TISSUE SUBMITTED: A - Left thyroid lobe for FS at 0850, B - Right thyroid lobe with substernal component for FS at 0948 MICROSCOPIC DESCRIPTION Slides are reviewed. MICROSCOPIC DIAGNOSIS A. Left thyroid lobe, lobectomy: Multinodular goiter. B. Right thyroid lobe with substernal component, lobectomy: Multinodular goiter. SJ:leah 08/30/18 Signed Blane Tanner 08/30/18 <signature on file> Performed By: #### PTHYROID #### [facility] [address] [place], [address] CNPN Observed: 08/16/2018 Status: COMPLETED Source: [place] 12:00 AM [facility] REPOSITORY Telephone (ENDMED) NICKIE BROWNE ([id number]) 1965 M Date Time Provider Department 08/16/18 KATALINA JONES During your visit today, we recorded the following information about you: Melia [place] RN 08/16/2018 10:21 AM Signed Patient calling for his test results Noted message to call when results are all in Per patient ok to give results to Don. Patient Name Sex Nickie Browne ([id number]) Male 1965 08/14/2018 11:51 AM - , Lab Mu Oru In Component Results Component Value Range AND Units Status Performing Lab Metanephrine 153 52 - 341 ug/24 hr Final CCM Normetanephrine 439 88 - 444 ug/24 hr Final CCM Tot Metanephrine 592 140 - 785 ug/24 hr Final CCM Comment: This test was developed Sex Nickie Gentile ([id number]) Male 1965 08/13/2018 ?1:18 PM - , Lab Mu Oru In Component Results Component Value Range AND Units Status Performing Lab Period 24 Final [facility] Urine Volume 2252 Final [facility] Creatinine, Ur Random (UCRR) 61 mg/dL Final [facility] Creatinine mg/day, Urine 1374 800 - 2,100 mg/d Final Magi Cash RN 08/16/2018 11:01 AM Signed This was already documented in an earlier call, attached to the already open encounter from Dr Jones. This is a duplicate. Encounter closed. Katalina Jones MD 08/16/2018 3:58 PM Signed Please notify the patient that his urine metanephrines and catecholamines are normal, this rules out a pheochromocytoma. At this point, no further testing is needed from my standpoint. Please fax this information to - ENT in [place] Katalina Jones MD 08/16/18 Nikki Lama Ma 08/17/2018 11:46 AM Signed Called and spoke with PT'S , expressed understanding Mailed copy of labs to patient Faxed copy of labs to PCP and Dr. Rodriguez Encounter closed Allergies As of Date: 08/16/2018 (No Known Allergies) Date Reviewed: 08/05/2018 Reviewed by: Katalina Jones - Fully Assessed Reason for Visit: Results [95] Prescriptions as of 08/16/2018 Sig: LEFLUNOMIDE 20 MG TABLET Take 20 mg by mouth once warren* MELOXICAM 15 MG TABLET Take 15 mg by mouth once warren* PLAQUENIL ORAL Take 400 mg by mouth once sara* METOPROLOL SUCCINATE ER 100 M* Take 100 mg by mouth once sara* OMEPRAZOLE 20 MG CAPSULE,KATIA* Take 20 mg by mouth once warren* AMOXICILLIN 500 MG CAPSULE Take 1 capsule by mouth. 2 pi* MOMETASONE 50 MCG/ACTUATION N* Use in the nose once daily. * Problem List As Of Date 08/16/2018 Noted Resolved UNILAT INGUINAL HERNIA [K40.90] INVALID FOR* Subclinical hyperthyroidism [E05.90] INVALID FOR* Enlarged thyroid gland [E04.9] INVALID FOR* Multiple thyroid nodules [E04.2] INVALID FOR* Encounter Status:Closed by MAGI CASH RN on 08/16/18 PERIOD / VOLUME Collected: 08/09/2018 Status: F Source: [place] 10:24 AM [facility] REPOSITORY TYPE CODE TESTS RESULT OUT OF REFERENCE UNITS RANGE LAB PER hr Period 24 LAB VOL mL Volume 2252 LAB COLSDT Collection Start 806102 Date LAB COLSTM Collection Start 1030 Time LAB COLEDT Collection End 721990 Date LAB COLETM Collection End 1030 Time Performed By: #### PV #### [facility] [address] [place] [address] #### URCAT2 #### [facility] [address] [place] [address] [phone] [place] [address] CATECHOLAMINE FRA UR Collected: 08/09/2018 Status: F Source: [place] 10:24 AM [facility] REPOSITORY TYPE CODE TESTS RESULT OUT OF REFERENCE UNITS RANGE LAB CATHRS Hours Collected 24 LAB CATVOL Total Volume 2252 LAB CCRETC mg/dL Creatinine 61 Random Ur LAB UCRPD 800-2100 mg/d Creatinine,mg/da 1374 y Ur Result Comment: (NOTE) Performed by [facility], [address] [place] [address] www.[email or web address], Vik Napoles MD, Lab. Director LAB EPI24U 1-7 ug/d Epi, Ur per 7 24hr Result Comment: (NOTE) REFERENCE INTERVAL: Epinephrine, Urine - ug/d Access complete set of age- and/or gender-specific reference intervals for this test in the [facility] Test Directory ([employer]). LAB NOR24U 16-71 ug/d Norepi, Ur per 24hr 70 Result Comment: (NOTE) REFERENCE INTERVAL: Norepinephrine, Urine - ug/d Access complete set of age- and/or gender-specific reference intervals for this test in the [facility] Test Directory ([employer]). LAB DOP24U 77-324 ug/d Dopa, Ur per 153 24hr Result Comment: (NOTE) REFERENCE INTERVAL: Dopamine, Urine - ug/d Access complete set of age- and/or gender-specific reference intervals for this test in the [facility] Test Directory ([employer]). LAB EPIRAT 0-20 ug/g EQUIPMENT PLANNER Epi, Ur ratio 5 to EQUIPMENT PLANNER LAB NORRAT 0-45 ug/g EQUIPMENT PLANNER High Norepi, Ur 51 ratio EQUIPMENT PLANNER LAB DOPRAT 0-250 ug/g EQUIPMENT PLANNER Dopa, Ur 111 ratio EQUIPMENT PLANNER LAB CATINT Catecholamine SEE NOTE s, Int Result Comment: (NOTE) TEST INFORMATION: Catecholamines Fractionated, Urine Free The optimal specimen for this testing is a 24-hour urine collection. Mass per day calculations are not reported for patients younger than 4 years of age and for the following specimen types: a random collection, a collection with duration of less than 20 hours, a collection with duration of greater than 28 hours, or a collection with total volume less than 400 mL (if 18 years of age or older) or greater than 5000 mL (all ages). Ratios to creatinine may be useful for these evaluations. Smaller increases in catecholamine concentrations (less than two times the upper limit) usually are the result of physiological stimuli, drugs, or improper specimen collection. Significant elevation of one or more catecholamines (three or more times the upper reference limit) is associated with an increased probability of a neuroendocrine tumor. Access complete set of age- and/or gender-specific reference intervals for this test in the [facility] Test Directory ([employer]). Test developed and characteristics determined by [facility]. See Compliance Statement B: [employer]/ LAB EPIVOL ug/L Epi, Ur per volume 3 LAB NORVOL ug/L Norepi, Ur per 31 vol LAB DOPVOL ug/L Dopa, Ur per vol 68 Performed By: #### PV #### [facility] [place] [facility] [address] [place], [place] [address] #### URCAT2 #### [facility] [address] [place] [address] [phone] [facility] [place] [facility] [address] [place], [place] [address] PERIOD / VOLUME Collected: 08/09/2018 Status: F Source: [place] 10:24 AM [facility] REPOSITORY TYPE CODE TESTS RESULT OUT OF REFERENCE UNITS RANGE LAB PER hr Period 24 LAB VOL mL Volume 2252 LAB COLSDT Collection Start 251161 Date LAB COLSTM Collection Start 1024 Time LAB COLEDT Collection End 220852 Date LAB COLETM Collection End 1024 Time Performed By: #### PV, UMETAN #### [place] [id number] [place] [address] METANEPHRINE UR 24HR Collected: 08/09/2018 Status: F Source: [place] 10:24 AM [facility] REPOSITORY TYPE CODE TESTS RESULT OUT OF REFERENCE UNITS RANGE LAB METAN 52-341 ug/24 hr Metanephrines,Urin 153 e LAB NORMET 88-444 ug/24 hr Normetanephrines,U 439 r LAB TOTMET 140-785 ug/24 hr Total Metanephrines 592 Result Comment: This test was developed and its performance characteristics determined by [facility] [place] (-[facility]). It has not been cleared or approved by the FDA. -[facility] is regulated under CLIA as qualified to perform high-complexity testing. This test is used for clinical purposes. It should not be regarded as investigational or for research. Performed By: #### PV, UMETAN #### [place] [address] TSH Collected: 08/05/2018 Status: F Source: [place] 10:40 AM [facility] REPOSITORY TYPE CODE TESTS RESULT OUT OF RANGE REFERENCE UNITS LAB TSH 0.400-5.500 uU/mL Low TSH 0.196 Performed By: #### TSH, FREET3, FT4, TRAB #### [place] [address] FREE T3 Collected: 08/05/2018 Status: F Source: [place] 10:40 AM [facility] REPOSITORY TYPE CODE TESTS RESULT OUT OF RANGE REFERENCE UNITS LAB FREET3 2.3-4.1 pg/mL Free T3 3.9 Performed By: #### TSH, FREET3, FT4, TRAB #### [place] [address] FREE T4 Collected: 08/05/2018 Status: F Source: [place] 10:40 AM [facility] REPOSITORY TYPE CODE TESTS RESULT OUT OF RANGE REFERENCE UNITS LAB FT4 0.9-1.7 ng/dL Free T4 1.4 Performed By: #### TSH, FREET3, FT4, TRAB #### [facility] [employer] [address] [place], [place] [address] TSH RECEPTOR AB. Collected: 08/05/2018 Status: F Source: [place] 10:40 AM [facility] REPOSITORY TYPE CODE TESTS RESULT OUT OF REFERENCE UNITS RANGE LAB TSIG <150 % Normal TSI <13 LAB TBI <1.0 U/L TBI <1.0 Result Comment: This test was developed and its performance characteristics determined by [facility] [place] ([facility]). It has not been cleared or approved by the FDA. -[facility] is regulated under CLIA as qualified to perform high-complexity testing. This test is used for clinical purposes. It should not be regarded as investigational or for research. Performed By: #### TSH, FREET3, FT4, TRAB #### [facility] [employer] [address] [place], [place] [address] PROGRESS Observed: 08/05/2018 Status: COMPLETED Source: [place] 10:07 AM [facility] REPOSITORY HNO ID: [id number] Author: Katalina Jones Service: (none) Author Type: Physician Type: Progress Notes Filed: 08/05/2018 11:23 AM Note Text: REFERRING PHYSICIAN: Self REASON FOR REFERRAL:Thyroid nodule My final recommendations will be communicated back to the requesting physician by way of shared Medical record or a letter via [place] mail SUBJECTIVE: Nickie Browne is a 53 year old male was referred for evaluation of a thyroid nodules and adrenal evaluation History in brief, he was noted to have enlarged thyroid during rheumatology visit Further evaluation with thyroid US revealed an enlarged thyroid and bilateral thyroid nodules measuring 2.2-3.0 cm Right lobe- 9.4x3.2x3.1 cm Right thyroid nodule- 2.2 cm Left thyroid lobe- 9.4x3.0x2.4 cm Left thyroid nodule 3.0 cm, 1.5 cm He underwent FNA of the dominant left thyroid last This was done by ENT Related symptoms: Swallowing difficulty: No Shortness of breath when lying flat: No History of radiation exposure to the neck: No Family history of thyroid cancer: No He was also noted to have borderline TSH- 0.34 (0.35-3.74) Free thyroid hormones were normal SINGH scan: 4 hours uptake- 13.6% and 24 hour Uptake 33.7% Cold nodule in the left inferior thyroid pole +tremors and palpitations He has been experiencing dizziness and BP fluctuations Reports that his SBP ranges 117-150s when he is stressed out or while he is watching a scary movie No readings in 160-180 No headaches or dyspnea Patient also reports syncope He has been hospitalized and evaluated by cardiology CT Abdomen- no adrenal nodules Plasma norepinephrine 1003 (0-874) Epinephrine 269 (0-62) PAST MEDICAL HISTORY Diagnosis Date - Allergic rhinitis, cause unspecified - Multiple thyroid nodules - Osteoarthritis PAST SURGICAL HISTORY Procedure Laterality Date - CARPAL TUNNEL - REPAIR ING HERNIA,5+Y/O,REDUCIBL Left ALLERGIES No Known Allergies Social History Marital status: Spouse name: Years of education: Number of children: Social History Main Topics Smoking status: Never Smoker Smokeless tobacco: Never Used Alcohol use: Yes Comment: occasional Drug use: No FAMILY HISTORY Problem Relation Age of Onset - Thyroid Mother hypothyroid - Hypertension Father - Lipids Father - Heart Father MEDICATIONS: Current Outpatient Prescriptions on File Prior to Visit: mometasone (NASONEX) 50 mcg/Actuation NASAL nasal spray Use in the nose once daily. 2 SPRAYS EACH NOSTRIL DAILY-RINSE MOUTH AFTER USE. amoxicillin 500 mg ORAL capsule Take 1 capsule by mouth. 2 pills twice daily FOR 10 DAYS. No current facility-administered medications on file prior to visit. REVIEW OF SYSTEMS: General: no fever, chills or acute changes in weight Skin: no rashes, pruritus Eyes: no blurred or double vision or eye pain Cardiac: denies chest pain or orthopnea, + heart palpitations Pulmonary: denies wheezing, productive cough or exertional dyspnea GI: denies nausea, vomiting, diarrhea, constipation Neuro: denies numbness/tingling in hands or feet Musc: no muscle weakness Endocrine: denies polyuria, polydipsia, nocturia Hematology: Negative for anemia, easy bleeding and bruising. PHYSICAL EXAMINATION: BP 137/85 (BP Site: Left Arm, BP Position: Sitting, BP Cuff Size: Regular Adult) Pulse 90 Ht 168.3 cm (5' 6.25) Wt 73.7 kg (162 lb 6.4 oz) SpO2 99% BMI 26.01 kg/m? General: no acute distress, alert and orientated X 3 Eyes:pupils are equally round, anicteric sclera Neck - supple, no significant adenopathy, Thyroid: thyroid is significantly enlarged, + palpable nodules bilaterally Neuro - alert, oriented, normal speech, no focal findings noted, patellar reflexes 2+ CV - normal rate and regular rhythm, S1 and S2 normal. Chest:Lungs clear to auscultation. No wheezing, rhonchi, rales Abdominal: soft, non-tender. Bowel sounds normal. No masses,bowel sounds Musculoskeletal - no joint tenderness, deformity or swelling. +tremor noted Extremities- no edema, no discoloration Skin- no rash or erythema LABS AND IMAGING See above ASSESSMENT AND PLAN: 1. Multiple Thyroid nodules: 2. Enlarged thyroid 3. Subclinical hyperthyroidism Patient has a significantly enlarged thyroid Surprisingly he has no compressive symptoms No toxic nodule per SINGH scan The left inferior thyroid nodule appeared cold on SINGH scan He already underwent FNA He has a follow up appt with ENT next week to review the cytopathology results TSH was slightly low Repeat have been normal Check TRABs 4. Elevated norepinephrine level 5. Tachycardia 6. BP fluctuation CT scan was negative for adrenal nodules, therefore, pheo is excluded However, paraganglioma is a possibility Check 24 hour urine metanephrines If that comes back significantly elevated, then will proceed with MIBG Follow up to be determined based on lab results Spent approx 60 minutes with patient with over 50% of time spent in discussion and counseling about his symptoms, reviewing outside labs and imaging and determining further plan of care Very complex patient with multiple medical concerns Katalina Jones MD 08/05/18 CNOV Observed: 08/05/2018 Status: COMPLETED Source: [place] 9:45 AM [facility] REPOSITORY Office Visit (ENDMED) NICKIE BROWNE ([id number]) 1965 M Date Time Provider Department 08/05/18 9:45 AM KATALINA JONES During your visit today, we recorded the following information about you: Pulse Blood pressure Weight Height 90/minute 137/85 73.7 kg 1.683 m Katalina Jones MD 08/05/2018 11:23 AM Signed REFERRING PHYSICIAN: Self REASON FOR REFERRAL:Thyroid nodule My final recommendations will be communicated back to the requesting physician by way of shared Medical record or a letter via [place] mail SUBJECTIVE: Nickie Browne is a 53 year old male was referred for evaluation of a thyroid nodules and adrenal evaluation History in brief, he was noted to have enlarged thyroid during rheumatology visit Further evaluation with thyroid US revealed an enlarged thyroid and bilateral thyroid nodules measuring 2.2-3.0 cm Right lobe- 9.4x3.2x3.1 cm Right thyroid nodule- 2.2 cm Left thyroid lobe- 9.4x3.0x2.4 cm Left thyroid nodule 3.0 cm, 1.5 cm He underwent FNA of the dominant left thyroid last This was done by ENT Related symptoms: Swallowing difficulty: No Shortness of breath when lying flat: No History of radiation exposure to the neck: No Family history of thyroid cancer: No He was also noted to have borderline TSH- 0.34 (0.35-3.74) Free thyroid hormones were normal SINGH scan: 4 hours uptake- 13.6% and 24 hour Uptake 33.7% Cold nodule in the left inferior thyroid pole +tremors and palpitations He has been experiencing dizziness and BP fluctuations Reports that his SBP ranges 117-150s when he is stressed out or while he is watching a scary movie No readings in 160-180 No headaches or dyspnea Patient also reports syncope He has been hospitalized and evaluated by cardiology CT Abdomen- no adrenal nodules Plasma norepinephrine 1003 (0-874) Epinephrine 269 (0-62) PAST MEDICAL HISTORY Diagnosis Date - Allergic rhinitis, cause unspecified - Multiple thyroid nodules - Osteoarthritis PAST SURGICAL HISTORY Procedure Laterality Date - CARPAL TUNNEL - REPAIR ING HERNIA,5+Y/O,REDUCIBL Left ALLERGIES No Known Allergies Social History Marital status: Spouse name: Years of education: Number of children: Social History Main Topics Smoking status: Never Smoker Smokeless tobacco: Never Used Alcohol use: Yes Comment: occasional Drug use: No FAMILY HISTORY Problem Relation Age of Onset - Thyroid Mother hypothyroid - Hypertension Father - Lipids Father - Heart Father MEDICATIONS: Current Outpatient Prescriptions on File Prior to Visit: mometasone (NASONEX) 50 mcg/Actuation NASAL nasal spray Use in the nose once daily. 2 SPRAYS EACH NOSTRIL DAILY-RINSE MOUTH AFTER USE. amoxicillin 500 mg ORAL capsule Take 1 capsule by mouth. 2 pills twice daily FOR 10 DAYS. No current facility-administered medications on file prior to visit. REVIEW OF SYSTEMS: General: no fever, chills or acute changes in weight Skin: no rashes, pruritus Eyes: no blurred or double vision or eye pain Cardiac: denies chest pain or orthopnea, + heart palpitations Pulmonary: denies wheezing, productive cough or exertional dyspnea GI: denies nausea, vomiting, diarrhea, constipation Neuro: denies numbness/tingling in hands or feet Musc: no muscle weakness Endocrine: denies polyuria, polydipsia, nocturia Hematology: Negative for anemia, easy bleeding and bruising. PHYSICAL EXAMINATION: BP 137/85 (BP Site: Left Arm, BP Position: Sitting, BP Cuff Size: Regular Adult) Pulse 90 Ht 168.3 cm (5' 6.25) Wt 73.7 kg (162 lb 6.4 oz) SpO2 99% BMI 26.01 kg/m? General: no acute distress, alert and orientated X 3 Eyes:pupils are equally round, anicteric sclera Neck - supple, no significant adenopathy, Thyroid: thyroid is significantly enlarged, + palpable nodules bilaterally Neuro - alert, oriented, normal speech, no focal findings noted, patellar reflexes 2+ CV - normal rate and regular rhythm, S1 and S2 normal. Chest:Lungs clear to auscultation. No wheezing, rhonchi, rales Abdominal: soft, non-tender. Bowel sounds normal. No masses,bowel sounds Musculoskeletal - no joint tenderness, deformity or swelling. +tremor noted Extremities- no edema, no discoloration Skin- no rash or erythema LABS AND IMAGING See above ASSESSMENT AND PLAN: 1. Multiple Thyroid nodules: 2. Enlarged thyroid 3. Subclinical hyperthyroidism Patient has a significantly enlarged thyroid Surprisingly he has no compressive symptoms No toxic nodule per SINGH scan The left inferior thyroid nodule appeared cold on SINGH scan He already underwent FNA He has a follow up appt with ENT next week to review the cytopathology results TSH was slightly low Repeat have been normal Check TRABs 4. Elevated norepinephrine level 5. Tachycardia 6. BP fluctuation CT scan was negative for adrenal nodules, therefore, pheo is excluded However, paraganglioma is a possibility Check 24 hour urine metanephrines If that comes back significantly elevated, then will proceed with MIBG Follow up to be determined based on lab results Spent approx 60 minutes with patient with over 50% of time spent in discussion and counseling about his symptoms, reviewing outside labs and imaging and determining further plan of care Very complex patient with multiple medical concerns Katalina Jones MD 08/05/18 Katalina Jones MD 08/05/2018 10:28 AM Signed Get the blood test drawn Then do the 24 hour urine collection I will notify you once the labs become available Follow up to be determined based on the results Referring Provider: SELF [[id number]] Allergies As of Date: 08/05/2018 (No Known Allergies) Date Reviewed: 08/05/2018 Reviewed by: Katalina Jones - Fully Assessed Reason for Visit: Thyroid Problem [110] Primary Visit Diagnosis:Multiple thyroid nodules [E04.2] Other Visit Diagnoses:Enlarged thyroid gland [E04.9] Subclinical hyperthyroidism [E05.90] Elevated norepinephrine level [E34.9] Tachycardia [R00.0] Elevated BP without diagnosis of hypertension [R03.0] Order(s):TSH RECEPTOR AB [SQTRAB] Order #: [id number] FUTURE METANEPHRINES 24H UR [SQUMETAN] Order #: [id number] FUTURE CATECHOLAMINES FRACTIONATED, URINE FREE [SQURCAT2] Order #: [id number] FUTURE TSH BLD [SQTSH] Order #: [id number] FUTURE T4 FREE/FREE THYROX [SQFT4] Order #: [id number] FUTURE T3 FREE BLD [SQFREET3] Order #: [id number] FUTURE Prescriptions as of 08/05/2018 Sig: LEFLUNOMIDE 20 MG TABLET Take 20 mg by mouth once warren* MELOXICAM 15 MG TABLET Take 15 mg by mouth once warren* PLAQUENIL ORAL Take 400 mg by mouth once sara* METOPROLOL SUCCINATE ER 100 M* Take 100 mg by mouth once sara* OMEPRAZOLE 20 MG CAPSULE,KATIA* Take 20 mg by mouth once warren* MOMETASONE 50 MCG/ACTUATION N* Use in the nose once daily. * AMOXICILLIN 500 MG CAPSULE Take 1 capsule by mouth. 2 pi* Problem List As Of Date 08/05/2018 Noted Resolved UNILAT INGUINAL HERNIA [K40.90] INVALID FOR* Subclinical hyperthyroidism [E05.90] INVALID FOR* Enlarged thyroid gland [E04.9] INVALID FOR* Multiple thyroid nodules [E04.2] INVALID FOR* Other instructions from your clinician: Get the blood test drawn Then do the 24 hour urine collection I will notify you once the labs become available Follow up to be determined based on the results Encounter Status:Closed by KATALINA JONES DO on 08/05/18 ASP SEND IN Observed: 07/29/2018 Status: F Source: [place] 10:30 AM [facility] REPOSITORY Patient: NICKIE BROWNE : 1965 (53/M) Acct Num: [id number] Phys: Cathy Rodriguez MD Unit Num: [id number] Loc: LABSPEC Specimen: [id number] Received: 07/29/18 - 1339 Spec Type: ASP SENDIN TISSUES TISSUES: Thyroid gland, NOS COMMENT Correlation with clinical, radiologic findings and appropriate follow up are necessary. CYTOLOGY GROSS Received is 45 ml of red, cloudy fluid labeled with the patient's name and and designated per the requisition as left thyroid. Submitted for cytology preparation including cell block. / 07/29/18 TC:5 CPT: 85949, 32846 CYTOLOGY STUDY Slides are reviewed. DIAGNOSIS CYTOLOGY Left thyroid nodule, FNA (cytospin and cell block): Consistent with benign follicular nodule. Adequate for evaluation. SJ:leah 07/30/18 HEADER OPERATION: Fine needle aspiration PRE-OP DIAGNOSIS: Nontoxic multinodular goiter E04.2 TISSUE SUBMITTED: Fine needle aspiration left thyroid nodule Signed Blane Tanner 07/30/18 <signature on file> Performed By: #### GENESISI #### [facility] [place], [address] SURGERY VISIT REPORT Observed: 07/20/2018 Status: F Source: [place] 4:53 PM [facility] REPOSITORY [facility] [address] [place] [address] OFFICE VISIT Date of Service: 07/20/18 MR#: [id number] Acct: [id number] Name: NICKIE BROWNE Rep #: [id number] : 1965 Provider: Nam Villegas MD Age/Sex: 53/M Location: [facility] Status: Signed Intake Vital Signs07/20/18 Height 5 ft 9 in 07/20/18 Weight: 164 lb Intake Visit Reasons: Thyroid Nodules U/S 07/06 [facility] Chief Complaint: Initial visit. Child Protection Specialist Required: No Is patient in pain?: No Allergies No Known Allergies Allergy (Verified 07/20/18 12:44) Medications Meloxicam [Mobic] 15 mg PO DAILY 07/18/16 [History Confirmed 07/20/18] Hydroxychloroquine [Plaquenil] 400 mg PO DAILYCM 03/01/17 [History Confirmed 07/20/18] Leflunomide [Arava] 20 mg PO DAILY 03/01/17 [History Confirmed 07/20/18] glucosamine sulfate 500 mg tablet 1,000 mg PO QDAY tab 07/13/18 [History Confirmed 07/20/18] loratadine 10 mg tablet 10 mg PO QDAY 07/13/18 [History Confirmed 07/20/18] metoprolol tartrate 50 mg tablet 50 mg PO QDAY tab 07/13/18 [History Confirmed 07/20/18] mometasone 50 mcg/actuation nasal spray 2 spray INTRANASAL QDAY 07/13/18 [History Confirmed 07/20/18] [facility] Medical History Bone fracture (Acute) Carpal tunnel syndrome (Acute) Goiter (Acute) Osteoarthritis (Acute) Seasonal allergies (Acute) Arthritis (Chronic) Chronic back pain (Chronic) Hearing loss (Chronic) Surgical History History of carpal tunnel release (Chronic) History of herniorrhaphy (Chronic) Family History Father Myocardial infarction Hypertension CAD (coronary artery disease) PCI-Stent x 2 Unknown Arthritis High cholesterol Thyroid disorder Skin cancer Social History Smoking Status: Never smoker alcohol intake: never substance use type: does not use HPI HPI HPI: NICKIE BROWNE, is a 53 M who presents to the office today for surgical consultation regarding multiple thyroid nodules. The patient is referred by TOM Galvez NP and a written copy of my surgical consult recommendations will be returned to her. Getting a understandable consistent history from this patient is somewhat challenging. The patient apparently incurred an episode of palpitations and near syncope. This led to evaluations by his primary care physician Dr Anupama Bains and Dr Nish Herrera and TOM Galvez, REDDY.. Part of the workup included a norepinephrine level of 1003 with normal high being 874 and an epinephrine level of 269 with a high normal of 62 and a dopamine level 46 with a high normal of 48. It a CT scan the abdomen was obtained and was negative for any adrenal nodules. A thyroid uptake exam was obtained at the [facility] on June 23, 2018 showing normal 4 and 24 hour radioactive iodine uptake. There was a hypofunctioning nodule at the level of the inferior pole the left thyroid with correlation with ultrasound recommended. On July 06, 2018 a thyroid ultrasound was obtained at the [facility]. The right lobe measures 9.4 cm in maximum length. Numerous nodules and tiny cysts seen. 2 primary solid nodules on the right measuring 2.2 cm each. On the left the gland measures 9.4 cm. Numerous nodules are seen. There are 2 primary solid nodules on left measuring 1.5 and 3 cm. Laboratory as of June 21, 2018 showed a free T3 of 2.9 and a TSH of 0.27 and a T4 direct of 1.01. The patient states that he is referred by TOM galvez with a diagnosis of toxic multinodular goiter. On my review of the referral information I am not seeing this as the diagnosis. I am seeing referral for evaluation of thyroid nodules. ROS General General: No weight change, appetite, fatigue, colon cancer, breast cancer or weakness HEENT HEENT: No difficulty swallowing, eye injury, eye surgery, swollen glands or hoarseness Endo Endocrine: Yes thyroid disease; no diabetes mellitus, thyroid cancer, Hair loss, heat intolerance or cold intolerance Skin Skin: No rash or changing moles Musc Musculoskeletal: Yes back problems and arthritis; no rheumatoid arthritis, gout or joint pain Cardio Cardiovascular: Yes high blood pressure; no murmur, pacemaker, heart disease, atrial fibrillation, heart attack, heart stent, palpitations, shortness of breat with exertion or chest pain Psych Psychiatric: No depression, anxiety or hearing voices Resp Respiratory: No shortness of breath, No sleep apnea, No cough, No COPD, No asthma, No emphysema, No wheezing Gastro Gastrointestinal: No abdominal pain, No nausea or vomiting, No diarrhea, No constipation, No blood in stool, No acid reflux, No hemorrhoids, No ulcers, No gallbladder problem, No black,tarry stools Raphael Hematologic: No blood thinners, No blood disorders, No bleeding, No anemia, No blood clots Neuro Neurologic: No system reviewed and no additional complaints, except as docu, No as per HPI, No abnormal walking, No abnormal hearing, No abnormal movements, No abnormal speech, No behavioral changes, No burning sensations, No confusion, No seizure-like activity, No unsteadiness, No dizziness, No localized weakness, No frequent falls, No headache(s), No lack of coordination, No loss of vision, No memory loss, No numbness, No other visual disturbances, No radiating pain, No restless legs, No sensory deficit, No fainting, No tingling, No tremor(s), No weakness, No other Exam Const General: anxious Nutritional Appearance: average body habitus Other: Patient appears anxious. Sitting on the edge of the exam table. HENMT Other: Thyroid is palpably enlarged but actually difficult to appreciate the notably enlarged size present on ultrasound. Nontender. Carotids are 3+ no bruits. I am not detecting these are for adenopathy. Cardio Heart Sounds: no murmurs Other: Patient has very mild tremor. Mild tachycardia on palpation of radial pulse. Neuro Other: [place] is negative Assessment AND Plan Problems 1. Multiple thyroid nodules E04.2 Plan I had extensive discussion with the patient and his present. Actually both the patient and his are extraordinarily insistent that they have been told that the thyroid is the source of his recent illness. I explained to them that based upon the laboratory and nuclear medicine imaging that I have that I did not have correlation with that. I explained that I did not have an answer to his palpitations nor syncope but that I had a lower level of suspicion that it was secondary to his multiple thyroid nodules. I did however strongly advise that we schedule him for an ultrasound-guided bilateral thyroid nodule fine-needle aspiration for definitive diagnosis to exclude the possibility of malignancy. I did stress to him that it was very pertinent to proceed with this part of the evaluation even if it did not provide resolution to his symptom concerns. Again the patient and his reiterated that they were made sure that the thyroid was the source of his symptoms. I advised that I feel that it is much wiser to measure twice and cut once. I advised that we perform the fine-needle aspiration. I advised that I have an opportunity in particular discussed the patient's care with his referring provider TOM galvez so that I could better understand her evaluation. I additionally advised that it may well be worthwhile to involve the consultation of an vice president of nursing prior to proceeding with any definitive thyroid surgery. I advised that thyroid surgery carries all the normal operative risks with the additional risks of injury to the recurrent laryngeal nerve and parathyroids. I further advise that I did not feel comfortable at this time that thyroid surgery would resolve his symptoms. I felt that further information was required at this time. When the patient left the office I instructed him that I would be personally contacting Tom Galvez for verbal confirmation and that I advised scheduling him in the office for an ultrasound-guided final aspiration of bilateral thyroid. There were no additional questions regarding that plan of approach at that time. Later in the afternoon I was able to reach TOM Galvez by phone. She reiterated that the patient had minimally altered thyroid function tests not likely explaining his symptoms. She stated that she had informally spoken to Dr. Roseline Villarreal an vice president of nursing but that the patient had not physically seen one yet. She was not advising that the thyroid has been determined to be etiologic to the patient's symptoms. She was referring the patient for definitive diagnosis of his thyroid nodules and she did not know what was etiologic to the patient's symptoms. When I discussed recommendations for referral to an vice president of nursing she concurred and felt that that was a thompson approach. Later in the same afternoon I was notified by my nursing staff that the patient had phone called back to to this office stating that he would not be returning for further care stating that I had not listened to his needs. I will send copies of this report to all previously involved caretakers. I admit I do not have an etiology to the patient's symptoms. My current concern however is that the patient and his are clearly focused on the concept that the thyroid is the source of his problems and will be seeking someone to perform a thyroidectomy. As noted above I believe that a thyroid fine aspiration would be in order and the patient has canceled this appointment with me Cc:Sandeep Mccormack and Dr. Nish Herrera and REDDY Daley M.D., F.A.C.S. Coding Level of Care Code Exp prob focused,strt fwd Diagnoses Multiple thyroid nodules E04.2 Time Spent (min) 30 07/20/18 1653 <Electronically signed by Nam Villegas MD> Date Nam Villegas MD Cosigner Signature: Date (if applicable) CC: Pilar Galvez NP; Nish Herrera MD; Evelia Bains MD OFFICE VISIT REPORT Observed: 07/14/2018 Status: F Source: [place] 8:11 AM [address] [place] [address] OFFICE VISIT Date of Service: 07/13/18 MR#: [id number] Acct: [id number] Patient: NICKIE BROWNE Rep #: [id number] : 1965 Provider: Pilar Galvez NP Age/Sex: 53/M Location: [facility] Status: Signed Intake Vital Signs07/13/18 Height 5 ft 9 in 07/13/18 Weight: 164 lb 2 oz 07/13/18 Body Mass Index (BMI) 24.2 07/13/18 Blood Pressure 153/98 07/13/18 Blood Pressure Location Lt popliteal 07/13/18 Blood Pressure Position Sitting Intake Visit Reasons: Thyroid disorder Chief Complaint: Initial visit. Child Protection Specialist Required: No Accompanied by: Family / Other Is patient in pain?: No Allergies No Known Allergies Allergy (Verified 07/13/18 14:38) Medications Meloxicam [Mobic] 15 mg PO DAILY 07/18/16 [History Confirmed 07/13/18] Hydroxychloroquine [Plaquenil] 400 mg PO DAILYCM 03/01/17 [History Confirmed 07/13/18] Leflunomide [Arava] 20 mg PO DAILY 03/01/17 [History Confirmed 07/13/18] glucosamine sulfate 500 mg tablet 1,000 mg PO QDAY tab 07/13/18 [History Confirmed 07/13/18] loratadine 10 mg tablet 10 mg PO QDAY 07/13/18 [History Confirmed 07/13/18] metoprolol tartrate 50 mg tablet 50 mg PO QDAY tab 07/13/18 [History Confirmed 07/13/18] mometasone 50 mcg/actuation nasal spray 2 spray INTRANASAL QDAY 07/13/18 [History Confirmed 07/13/18] PFSH Medical History Bone fracture (Acute) Carpal tunnel syndrome (Acute) Goiter (Acute) Osteoarthritis (Acute) Seasonal allergies (Acute) Arthritis (Chronic) Chronic back pain (Chronic) Hearing loss (Chronic) Surgical History History of carpal tunnel release (Chronic) History of herniorrhaphy (Chronic) Family History Father Myocardial infarction Hypertension CAD (coronary artery disease) PCI-Stent x 2 Unknown Arthritis High cholesterol Thyroid disorder Skin cancer Social History Smoking Status: Never smoker alcohol intake: never substance use type: does not use Questionnaire Depression Screen PHQ-2/9 PHQ-2 Over the last 2 weeks, how often have you been bothered by any of the following problems? 1. Little interest or pleasure in doing things: not at all 2. Feeling down, depressed, or hopeless: not at all Total score: 0 If score is 2 or greater, continue Source: Developed by Drs. Nam Batres, Mylene Wooten, Bernardo Prince and colleagues, with an educational brandyn from [employer]. Scoring: Total Score Depression Severity Action 1-4 Minimal depression No action needed 5-9 Mild depression Repeat PHQ-9 at follow up 10-14 Moderate depression Make tx plan,consider counseling, fup, prescription HPI HPI Chief Complaint: Initial visit. Details: NICKIE BROWNE, is a 53 M who presents to the office today for consult of thyroid. Has recors of thyroid US, thyroid labs as well as SINGH uptake. Also results of abd CT scan become available. Patient initially presented for concerns of palpitations and near syncopy. 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 He also feels somewhat fatigued as he is not sleeping well and he has a sense of heat intolerance. Appearance: cooperative, healthy appearing, well developed, well groomed and no acute distress Nutritional Appearance: well nourished and average body habitus Orientation: alert, awake and oriented x3 Head Head: normal to inspection, normocephalic and atraumatic Ears: hearing grossly normal bilaterally and external ears normal Nose: external nose normal, no nasal discharge Face and Sinus: face symmetric Mouth: oral mucosae normal, tongue normal, and moist mucous membranes Teeth and gingiva: dentition normal Eyes General: appearance normal, both eyes and all related structures Eyelids: eyelids normal Conjunctivae: conjunctivae normal Pupils: PERRL, normal by confrontation and accommodation normal EOM: EOM intact bilaterally Neck Thyroid enlarged, nodules noted by US Auscultation: Bilateral: Clear to Auscultation Cardio Rate: regular rate Rhythm: regular rhythm Heart sounds: S1 normal, S2 normal negative murmur GI GI: normal to inspection, soft, and bowel sounds present Neuro General: alert, awake, oriented x3, no focal sensory deficit, gait normal and moves all extremities Skin Skin: no rashes or lesions noted Extremities Pulses: Normal: Lower Extremity Edema: None: Bilateral Musculoskeletal: No joint tenderness Psych Psychological: normal affect ROS Const Constitutional: Positive for fatigue and excessive sweating; no anorexia, body ache, chills, fever(s), frequent falls, decreased energy, malaise, night sweats, weakness, weight change, sleep problems, abnormal sleep pattern, change in appetite, other, headache(s) or snoring Eyes Eyes: No blurry vision, change in vision, double vision, discharge, dry eyes, bulging eyes, floaters, visual disturbances, eye pain, light sensitivity, spots in vision, tunnel vision or other ENT ENT: No abnormal hearing, ear pain, ear discharge, ear pressure, hearing loss, tinnitus, dizziness/vertigo, balance problems, nosebleed/epistaxis, nasal congestion, nasal obstruction, nose pain, sinus pressure, sinus pain, nasal discharge, post nasal drip, headache(s), facial pain, dental pain, dry mouth, bad breath, hoarseness, lip swelling, mouth lesions, mouth pain, sore throat, tongue swelling, throat swelling, difficulty swallowing, neck pain or other Resp Respiratory: No cough, change in phlegm color, chest congestion, excessive phlegm production, hemoptysis, pain on inspiration, shortness of breath, pain with cough, snoring, stridor, wheezing or other Cardio Cardiology: Positive for lightheadedness, fast heart rate and excessive sweating; no chest pain at rest, chest pain with exertion, leg pain with exertion, shortness of breath, dyspnea on exertion, generalized swelling, irregular heart rhythm, orthopnea, radiating jaw, neck or arm pain, slow heart rate, palpitations or other Gastro GI: No abdominal pain, belching, bloating, change in bowel habits, change in stool character, coffee ground emesis, constipation, cramping, diarrhea, heartburn, difficulty swallowing, feeling full early, excessive flatus, incontinent of stools, Vomiting blood/hematemesis, blood in stool, loose stools, Black,tarry stools, nausea/dyspepsia, pain with swallowing, vomiting or other Genitourinary Male: No difficulty urinating, burning urination, painful urination, urinary incontinence, urinary frequency, urinary urgency, urinary hesitancy, urinary retention, blood in urine, Frequent nighttime urination/ nocturia, post void dribbling, suprapubic fullness, side pain, sexual problems, genital lesions, genital itching, erectile dysfunction, penile discharge, difficulty with ejaculations, blood in semen, scrotal swelling, testicle lump, testicle pain or other Musc Musculoskeletal: No abnormal walking, joint pain, back pain, deformity, joint swelling, limited range of motion, loss of height, muscle cramps, muscle weakness, decreased muscle mass, body aches, neck pain, numbness, radiating pain into limb, stiffness, tingling or other Skin Skin: No acne, hair loss, change in hair, nail changes, boil, change in skin color, dry skin, redness, excessive hair growth, yellowing of the skin, lesions, itching, rash, skin pain, skin ulcer, sores, skin swelling, wounds or other Breast Breast: No other Neuro Neurology: No frequent falls, weakness, visual disturbances, abnormal hearing, headache(s), abnormal walking, numbness or tingling Psych Psychiatric: No abnormal sleep pattern, No change in appetite Endo Endocrine: Positive for fatigue, excessive sweating and heat intolerance; no change in body appearance, cold intolerance, flushing, increased thirst/drinking, increased hunger, increased urination or other Aller/Imm Allergy/Immunologic: No lip swelling, tongue swelling, throat swelling, wheezing or itchy eyes Exam Musc Musculoskeletal: No muscle weakness Assessment AND Plan Problems 1. Multinodular goiter E04.2 Plan Recent workup notes no adrenal mass detected. No pheo noted. Symptoms not absolute for or severe enough for pheo. Was found to have multiple nodules with large thyroid which do need FNA by surgeon. SINGH uptake 33% . CT abdomen normal. Repeat of labs today to rule in/rule out hyperthyroidism. Discussed treatment modality for. Orders Orders: Plan Detail Additional Comments Labs today Surgical consult. Coding Level of Care Code Off vis,new,level 4 Diagnoses Multinodular goiter E04.2 Time Spent (min) 60 07/14/18 0811 <Electronically signed by Pilar VOGT> Date Pilar VOGT Cosigner Signature: Date (if applicable) CC: FREE T3 Collected: 07/13/2018 Status: F Source: [place] 4:44 PM [facility] REPOSITORY TYPE CODE TESTS RESULT OUT OF RANGE REFERENCE UNITS LAB L501.73705 2.18-3.98 pg/mL Normal FREE T3 3.1 Performed By: #### L501.67427, L501.9520, L506.0400 #### [facility] [address] [place], [address] THYROID STIM HORMONE Collected: 07/13/2018 Status: F Source: [place] (TSH) 4:44 PM [facility] REPOSITORY TYPE CODE TESTS RESULT OUT OF RANGE REFERENCE UNITS LAB L501.9520 0.358-3.74 uIU/mL Normal TSH 0.37 Performed By: #### L501.55434, L501.9520, L506.0400 #### [facility] [address] [place], [place], [address] T4 FREE DIRECT Collected: 07/13/2018 Status: F Source: [place] 4:44 PM [facility] REPOSITORY TYPE CODE TESTS RESULT OUT OF RANGE REFERENCE UNITS LAB L506.0400 0.76-1.46 ng/dL Normal T4 FREE 0.93 DIRECT Performed By: #### L501.83635, L501.9520, L506.0400 #### [facility] [place], [place], [address] THYROID PEROXIDASE AB Collected: 07/13/2018 Status: F Source: [place] 4:44 PM [facility] REPOSITORY TYPE CODE TESTS RESULT OUT OF RANGE REFERENCE UNITS LAB L3300.6900 0-34 IU/mL Normal TPO AB 14 6676 Result Comment: Performed at: - [facility] [address] [id number] Applications Specialist: Jaxon Bowling PhD, Phone: [phone] Performed By: #### L3300.6900 #### [facility] (refer to report for specific site) refer to report for address and phone number ABDOMEN/PELVIS WITH Observed: 07/13/2018 Status: F Source: [place] CONTRAST 6:51 AM [facility] REPOSITORY [facility] Imaging Services [address] [place] [address] Abdomen/Pelvis WITH Contrast MR#: [id number] Acct: [id number] Name: NICKIE BROWNE Rep #: [id number] : 1965 M 53 From: Reynaldo Salgado MD PCP: Evelia Bains MD Status: REG CLI Study: Abdomen/Pelvis WITH Contrast Date of Exam: 07/13/18 Exam# [id number] Ordering Dr: Evelia Banis MD STUDY: CT ABDOMEN AND PELVIS WITH CONTRAST REASON FOR EXAM: Male, 53 years old. Elevated labs, evaluate for pheochromocytoma RADIATION DOSAGE (If Supplied By Facility): CTDIvol = ( 11.25 ) mGy, DLP = ( 628.44 ) mGycm TECHNIQUE: Transaxial images were obtained from the dome of the diaphragm to the symphysis pubis without oral contrast. 100 ml of Isovue 300 contrast was administered. Sagittal and coronal images were reconstructed. Individualized dose optimization techniques were used for this CT. COMPARISON: None. FINDINGS: The visualized lung bases are unremarkable. The visualized portions of the heart are within normal limits. Normal liver. Normal gallbladder and extrahepatic biliary system. Normal spleen. Normal pancreas. Normal bilateral adrenal glands. Normal right kidney. Normal left kidney. Normal visualized stomach. Normal small intestine. Normal colon. The appendix is visualized and appears normal. Normal abdominal aorta. Normal inferior vena cava. Normal retroperitoneum. Normal urinary bladder. Normal abdominal wall. There are diffuse degenerative changes of the visualized lumbar spine. CT/Abdomen/Pelvis WITH Contrast IMPRESSION: No evidence of pheochromocytoma. The adrenal glands have a normal CT appearance. Electronically Signed: Reynaldo Salgado MD at 7:23 EDT Tel , Service support , CC: Evelia Bains MD Business Objects Architect: Signed CT OUTSIDE CD DICOM Observed: 07/13/2018 Status: F Source: [facility] -NBNR 12:00 AM [facility] REPOSITORY Images were obtained outside of [facility] [id number] THYROID Observed: 07/06/2018 Status: F Source: [place] 12:44 PM [facility] REPOSITORY [facility] Imaging Services [address] [place] [address] Thyroid MR#: [id number] Acct: [id number] Name: NICKIE BROWNE Rep #: [id number] : 1965 M 53 From: Garret Cardona MD PCP: Evelia Bains MD Status: REG CLI Study: Thyroid Date of Exam: 07/06/18 Exam# [id number] Ordering Dr: Evelia Bains MD STUDY: THYROID ULTRASOUND REASON FOR EXAM: Male, 53 years old. Nodule on nuclear medicine thyroid scan. TECHNIQUE: Ultrasound evaluation of the thyroid was performed with real-time and static modi-scale imaging. COMPARISON: Nuclear medicine thyroid scan of 06/23/2018. FINDINGS: RIGHT LOBE: The right lobe of the thyroid gland measures 9.4 x 3.2 x 2.1 cm. There is a heterogeneous echotexture. Very numerous nodules and tiny cysts are seen throughout the thyroid lobe. These include at least 2 primarily solid nodules on the right measuring 2.2 cm each. LEFT LOBE: The left lobe of the thyroid gland measures 9.4 x 3.0 x 2.4 cm. There is a heterogeneous echotexture. Very numerous nodules and tiny cysts are seen throughout the thyroid lobe. These include at least 2 primarily solid nodules on the left measuring 1.5 and 3.0 cm. ISTHMUS: The isthmus measures 7 mm . The regional lymph nodes are normal. US/Thyroid IMPRESSION: Findings most consistent with marked multinodular goiter with the largest nodule being on the left and measuring as much as 3 cm. Annual follow-up is recommended. Electronically Signed: Garret Cardona MD at 0:01 EDT , Service support , CC: Evelia Bains MD Business Objects Architect: Signed US OUTSIDE CD DICOM Observed: 07/06/2018 Status: F Source: [facility] -[facility]NR 12:00 AM [facility] REPOSITORY Images were obtained outside of [facility] [id number] THYROID UPTAKE Observed: 06/23/2018 Status: F Source: [place] SINGLE OR MULT 7:18 AM [facility] REPOSITORY [facility] Imaging Services [address] [place] [address] Thyroid Uptake Single or Mult MR#: [id number] Acct: [id number] Name: NICKIE BROWNE Rep #: [id number] : 1965 M 52 From: Nickie Romero DO PCP: Evelia Bains MD Status: REG CLI Study: Thyroid Uptake Single or Mult Date of Exam: 06/23/18 Exam# [id number] Ordering Dr: Evelia Bains MD CLINICAL: 52-year-old male with reported history of clinical hyperthyroidism. I-123 THYROID UPTAKE and SCAN COMPARISON: None available FINDINGS: The patient was administered a 303 uCi I-123 capsule by mouth. The 4-hour I-123 radioactive iodine thyroidal uptake was calculated to be 13.6 % (normal 5 to 25 %). The 24-hour I-123 radioactive iodine thyroidal uptake was calculated to be 33.7 % (normal 5 to 40 %). The I-123 thyroid scan demonstrates homogeneous radiopharmaceutical concentration throughout the right lobe of the U-shaped thyroid gland. A hypofunctioning nodule is demonstrated in the inferior pole the left lobe thyroid colloid. NM/Thyroid Uptake Single or Mult IMPRESSION: 1. Normal 4- and 24-hour I-123 radioactive iodine thyroidal uptakes. 2. The I-123 thyroid scan demonstrates a hypofunctioning nodule at the level of the inferior pole of the left lobe thyroid colloid. Correlation with thyroid ultrasound is recommended for further evaluation. Electronically Signed: Nickie Romero DO at 21:55 EDT Tel , Service support , CC: Evelia Bains MD Business Objects Architect: Signed NM OUTSIDE CD DICOM Observed: 06/23/2018 Status: F Source: [facility] -[facility] 12:00 AM [facility] REPOSITORY Images were obtained outside of [facility] [id number] ECHOCARDIOGRAM COMPLETE Observed: 06/21/2018 Status: F Source: [place] 3:23 PM [facility] REPOSITORY [facility] Cardiovascular Services [address] [place] [address] Echo Complete 06/15/18 1256 MR#: [id number] Acct: [id number] Name: NICKIE BROWNE Rep #: [id number] : 1965 52 From: Nish Herrera MD Attending Dr: Sharon RAMOS,Nish Status: REG CLI Ordering Dr: Nish Herrera MD Date: 06/15/18 Location: [facility] Sex: M C Admitted: Reason For Study: ARRHYTHMIA Procedure This was a 2D Doppler, Color Flow transthoracic echocardiogram. Exam performed portable in patient room. Left Ventricle Normal LV size. Left ventricular systolic function is normal. The estimated ejection fraction is 55 %. Transmitral diastolic flow velocities suggest mild (stage 1) diastolic dysfunction (reversed pattern). No regional wall motion abnormalities noted. Right Ventricle Normal RV size. Normal systolic function. Atria Normal left atrium. Normal right atrium. Mitral Valve Bileaflet diffuse mitral valve thickening. Mild mitral valve prolapse. Mild (1+) eccentric mitral valve insufficiency. Tricuspid Valve Normal tricuspid valve. Unable to estimate RV systolic pressure due to inadequate jet, pulmonary artery pressure probably normal. Aortic Valve Normal aortic valve. Trisinus/trileaflet aortic valve. Pulmonic Valve Normal pulmonic valve. Great Vessels Normal aortic root. The pulmonary artery is normal size. Normal inferior vena cava. Pericardium/Pleural No pericardial effusion. MMode/2D Measurements AND Calculations LVIDd: 4.9 cm IVSd: 0.89 cm Ao root diam: 3.2 cm LVIDs: 3.3 cm LVPWd: 0.90 cm LA dimension: 3.3 cm RVDd: 2.5 cm FS: 34.2 % LAV(MOD-bp): 36.3 ml LA A4 area: 13.4 cm2 RA A4 area: 8.6 cm2 LAV(MOD-bp) Indexed: 19.7 ml/m2 LAV(MOD-sp2): 38.8 ml LAV(MOD-sp4): 32.3 ml Time Measurements MV dec time: 0.31 sec Doppler Measurements AND Calculations MV E max francheska: 47.3 cm/sec Lat Peak E' Francheska: 9.6 cm/sec Med Peak E' Francheska: 6.4 cm/sec MV A max francheska: 66.7 cm/sec E/E' lat: 4.9 E/E' med: 7.4 MV E/A: 0.71 Ao V2 max: 117.8 cm/sec LV V1 max: 95.2 cm/sec Ao max P.6 mmHg LV V1 max P.6 mmHg Interpretation Summary Normal LV size. Left ventricular systolic function is normal. The estimated ejection fraction is 55 %. Transmitral diastolic flow velocities suggest mild (stage 1) diastolic dysfunction (reversed pattern). Bileaflet diffuse mitral valve thickening. Mild mitral valve prolapse. Mild (1+) eccentric mitral valve insufficiency. Ordering Physician: Nish Herrera Referring Physician: EVELIA BAINS Performed By: Nereyda Canales, RDCLAUDE, RVT 06/21/18 1522 Date Nish Herrera MD CC: Nish Herrera MD; Evelia Bains MD Date Dictated: 06/15/18 1256 Date Transcribed: 06/21/18 1522 Business Objects Architect: Signed FREE T3 Collected: 06/21/2018 Status: F Source: [place] 8:00 AM [facility] REPOSITORY TYPE CODE TESTS RESULT OUT OF RANGE REFERENCE UNITS LAB L501.25251 2.18-3.98 pg/mL Normal FREE T3 2.9 Performed By: #### L501.87936, L501.9520, L506.0400 #### [facility] [address] [place], [address] THYROID STIM HORMONE Collected: 06/21/2018 Status: F Source: [place] (TSH) 8:00 AM [facility] REPOSITORY TYPE CODE TESTS RESULT OUT OF RANGE REFERENCE UNITS LAB L501.9520 0.358-3.74 uIU/mL Low TSH 0.27 Performed By: #### L501.84655, L501.9520, L506.0400 #### [facility] [address] [place], [address] T4 FREE DIRECT Collected: 06/21/2018 Status: F Source: [place] 8:00 AM [facility] REPOSITORY TYPE CODE TESTS RESULT OUT OF RANGE REFERENCE UNITS LAB L506.0400 0.76-1.46 ng/dL Normal T4 FREE 1.01 DIRECT Performed By: #### L501.24039, L501.9520, L506.0400 #### [facility] [address] [place], [address] CATECHOLAMINES, PLASMA Collected: 06/21/2018 Status: F Source: [place] 8:00 AM [facility] REPOSITORY Order Comment: PT REFUSED THE 24 URINE TEST OF THE CATACHOL+VMA, DR BAINS SAID TO DO THE BLOOD DRAW OF IT. BUT WAS MAINLY UP TO DR HERRERA. TYPE CODE TESTS RESULT OUT OF REFERENCE UNITS RANGE LAB L3430.0200 0-874 pg/mL NOREPINEPHRINE High 1003 LAB L3430.0300 0-62 pg/mL EPINEPHRINE High 269 LAB L3430.0400 0-48 pg/mL DOPAMINE Normal 46 Result Comment: Performed at: [address] [id number] Applications Specialist: Reynaldo Lang MD, Phone: [phone] Performed By: #### L3430.0100 #### [facility] (refer to report for specific site) refer to report for address and phone number ORTHOPEDIC VISIT Observed: 06/17/2018 Status: F Source: [place] REPORT 11:27 AM [facility] Orthopa[facility]ics [facility] Sports Medicine [address] [address] OFFICE VISIT Date of Service: 06/11/18 MR#: [id number] Acct: [id number] Name: NICKIE BROWNE Rep #: [id number] : 1965 Provider: María Hurd DO Age/Sex: 52/M Location: [facility] [place] Status: Signed Intake Intake Visit Reasons: LEFT THUMB PAIN Chief Complaint: Initial visit. Is patient in pain?: Yes Pain scale (1-10): 2 Allergies No Known Allergies Allergy (Verified 06/09/18 14:56) Medications Meloxicam [Mobic] 15 mg PO DAILY 07/18/16 [History Confirmed 06/09/18] Hydroxychloroquine [Plaquenil] 400 mg PO DAILYCM 03/01/17 [History Confirmed 06/09/18] Leflunomide [Arava] 20 mg PO DAILY 03/01/17 [History Confirmed 06/09/18] predniSONE tablet 5 mg PO DAILY PRN 03/01/17 [History Confirmed 06/09/18] Omeprazole [Prilosec] 20 mg PO QHS 12/04/17 [History Confirmed 06/09/18] Cyclobenzaprine [Flexeril] 10 mg PO PRN PRN 06/05/18 [History Confirmed 06/09/18] diclofenac 1 % topical gel 2 g TOPICAL ONCE 06/09/18 [History Confirmed 06/09/18] PFSH Medical History Arthritis (Chronic) Chronic back pain (Chronic) Hearing loss (Chronic) Surgical History History of carpal tunnel release (Chronic) History of herniorrhaphy (Chronic) Family History Father Myocardial infarction Hypertension CAD (coronary artery disease) PCI-Stent x 2 Social History Smoking Status: Never smoker HPI LEFT THUMB PAIN: Details: NICKIE BROWNE is a 52 year old M here today for right wrist pain and ring finger trigger. He has had increased wrist pain after carrying a bucket. He has been off work for a week and the rest has been helpful. Denies numbness, tingling or other associated symptoms. Ortho Exam Right Wrist/Hand Skin/Wound: Yes CDI Contralateral Normal: Yes A1 quentin trigger: Yes (ring) Right Wrist: Yes ROM-Flexion 0-80, ROM-Pronation 0-80 and ROM-Supination 0-90 Motor: EPL: 5, FDP-2: 5, 1st Dorsal Interosseous: 5, APB: 5 Sensation: Radial: I, Ulnar: I, Median: I Office Procedures Ortho Injections Injections Yes Trigger Finger Injection Right Details: Obtained consent for injection. Under sterile conditions, injected the patients right ring A1 with 0.5cc kenalog and 1cc bupivacaine. The patient tolerated the injection well without any noted complication. Patient should call our office if redness develops, pain worsens or if they have any concerns. Office Meds Kenalog Performing Provider: María Hurd DO Administered by: María Hurd DO on 06/11/18 08:57 Dose Route Admin Location Lot Number Expiration DateNDC Retread Operator 0.5 mg Tendon Sheath Iright ring [id number] 03/23/19 2043-2130-76 [facility] SQUIBB Assessment AND Plan 1. Trigger finger, right ring finger M65.341 Plan Reviewed the benefit of the injection for the left side and explained that the injection can help the triggering. Educated on the anatomy of the quentin system Follow up as needed or sooner if pain, swelling, numbness or associated symptoms, or concerns develop. All questions answered. Patient in agreement of plan. Orders Orders: Medications Discontinued: Kenalog (triamcinolone acetonide) Di0.5 mg (0.05 mL) Tendon Sheath Inj. ONC Cody Carney scontinued Reason: Office Medication hE NS as been Documented as given 2. 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 HERRERA WANTS THE METANEPHRINES TSH T4 DR. ROSE WANTS THE CRE CBCD LIVER TYPE CODE TESTS RESULT OUT OF RANGE REFERENCE UNITS LAB L100.1000 4.4-11.0 K/mm3 Normal WBC 10.4 LAB L100.1200 4.6-6.2 M/mm3 Normal RBC 5.44 LAB L100.1300 13.0-16.5 g/dl Normal HGB 16.0 LAB L100.1400 40-54 % Normal HCT 47.1 LAB L100.1500 80-94 fL Normal MCV 86.6 LAB L100.1600 27.0-32.0 pg Normal MCH 29.4 LAB L100.1700 32-36 g/gl Normal MCHC 34.0 LAB L100.1810 11.6-14.6 % Normal RDW CV 12.3 LAB L100.1820 35.1-43.9 fl Normal RDW SD 39.2 LAB L100.1900 150-450 K/mm3 Normal PLT 295 LAB L100.2000 6.2-12.0 fl Normal MPV 10.4 LAB L100.2100 47-70 % High NEUT% 70.5 LAB L100.2200 19-41 % Low LY% 14.9 LAB L100.2300 0-10 % High MONO% 12.2 LAB L100.2400 0-5 % Normal EO% 1.8 LAB L100.2500 0-1 % Normal BASO% 0.4 LAB L100.2550 0.0-0.9 % Normal IM GRAN % 0.200 Result Comment: IG% - Immature Granulocytes (promyelocytes, myelocytes and metamyelocytes) > 1% indicates that a LEFT SHIFT is Present. LAB L100.2620 2.0-7.7 X10 3/uL Normal Absolute Neut 7.3 LAB L100.2720 0.83-4.51 X10 3/ul Normal Absolute Lymph 1.54 Performed By: #### L100.0100 #### [facility] [address] [facility] [place], [place], [address] LIVER PROFILE Collected: 06/09/2018 Status: F Source: [place] 3:55 PM [facility] REPOSITORY Order Comment: DR. HERRERA WANTS THE METANEPHRINES TSH T4 DR. ROSE WANTS THE CRE CBCD LIVER Comments: [id number] METANEPHRINES SER RT TYPE CODE TESTS RESULT OUT OF RANGE REFERENCE UNITS LAB L501.1500 6.4-8.2 g/dL Normal T PROT 7.7 LAB L501.1800 3.2-5.0 g/dL Normal ALB 4.1 LAB L501.1950 2.2-4.2 g/dL Normal GLOB 3.6 LAB L501.4100 15-37 U/L Normal AST 33 LAB L501.4305 45-117 U/L Normal ALK P 82 LAB L501.4405 16-61 U/L Normal ALT 37 LAB L501.4600 0.20-1.00 mg/dL Normal T BILI 0.40 LAB L501.4700 0.00-0.30 mg/dL Normal D BILI 0.09 Performed By: #### L500.3400, L501.1105, L501.9310, L501.9520 #### [facility] [address] [facility] [place], [place], [id number] SERUM CREATININE AND Collected: 06/09/2018 Status: F Source: [place] GFR 3:55 PM [facility] REPOSITORY Order Comment: DR. HERRERA WANTS THE METANEPHRINES TSH T4 DR. ROSE WANTS THE CRE CBCD LIVER Comments: [id number] METANEPHRINES SER RT TYPE CODE TESTS RESULT OUT OF RANGE REFERENCE UNITS LAB L501.1100 0.70-1.30 mg/dL Normal 1.10 CREAT,SERUM Result Comment: The validity of the calculated GFR AND GFRAA in patients over 70 years has not been determined. Clinical correlation is essential. LAB L501.1110 >60 mL/min Normal EST GFR 75 Result Comment: Non- GFR Calc LAB L501.1115 >60 mL/min Normal EST GFR - AA 91 Result Comment: GFR Calc Performed By: #### L500.3400, L501.1105, L501.9310, L501.9520 #### [facility] [address] [place], [address] T4 TOTAL, THYROXIN Collected: 06/09/2018 Status: F Source: [place] 3:55 PM [facility] RE[facility]ORY Order Comment: DR. HERRERA WANTS THE METANEPHRINES TSH T4 DR. ROSE WANTS THE CRE CBCD LIVER Comments: [id number] METANEPHRINES SER RT TYPE CODE TESTS RESULT OUT OF RANGE REFERENCE UNITS LAB L501.9310 4.5-12.1 ug/dL T4 Normal THYROXIN 12.1 Performed By: #### L500.3400, L501.1105, L501.9310, L501.9520 #### [facility] [address] [place], [address] THYROID STIM HORMONE Collected: 06/09/2018 Status: F Source: [place] (TSH) 3:55 PM [facility] RE[facility] Order Comment: DR. HERRERA WANTS THE METANEPHRINES TSH T4 DR. ROSE WANTS THE CRE CBCD LIVER Comments: [id number] METANEPHRINES SER RT TYPE CODE TESTS RESULT OUT OF RANGE REFERENCE UNITS LAB L501.9520 0.358-3.74 uIU/mL Low TSH 0.34 Performed By: #### L500.3400, L501.1105, L501.9310, L501.9520 #### [facility] [address] [place], [place], [id number] CARDIOLOGY VISIT Observed: 06/09/2018 Status: F Source: [place] 3:32 PM [facility] [address] [place] [address] OFFICE VISIT Date of Service: 06/09/18 MR#: [id number] Acct: [id number] Name: NICKIE BROWNE Rep #: [id number] : 1965 Provider: Nish Herrera MD Age/Sex: 52/M Location: [facility] Status: Signed HPI HPI Chief Complaint: Initial visit. Details: NICKIE BROWNE, is a 52 M who presents to the office today for an initial visit. He is a gentleman with a history of arthritis who presented to the emergency room last week with episodes of near syncope. He said he had 3 episodes of the above where he would experience episodes of tunnel vision like he was going to pass out. He also had some shortness of breath but he never lost consciousness. He has noted that he gets quite diaphoretic. He denies any chest pain or paroxysmal nocturnal dyspnea he has had some palpitations. On further questioning he tells me that he has also had a tremor and his primary physician also told him that he may have an enlarged thyroid. He has had no guy syncopal episodes. He was discharged from the hospital to see a water maintenance supervisor for follow- up visit. His physical exam today demonstrates clear lung medina regular rate and rhythm and no pedal edema his electrocardiogram demonstrates sinus rhythm with a rate of 99 bpm and no acute changes. His blood pressure is also noted to be elevated. He tells me that he has had periods where his blood pressure is elevated. He drinks about 4 cups of coffee a day and then also has 1-2 beers a week. Intake Vital Signs06/09/18 Height 5 ft 9 in 06/09/18 Weight: 158 lb 06/09/18 Body Mass Index (BMI) 23.3 06/09/18 Blood Pressure 156/88 06/09/18 Respiratory Rate 18 06/09/18 Pulse Rate 112 Intake Visit Reasons: ER 7-14 for near syncope, echo/stress per ER doc Allergies No Known Allergies Allergy (Verified 06/09/18 14:56) Medications Meloxicam [Mobic] 15 mg PO DAILY 07/18/16 [History Confirmed 06/09/18] Hydroxychloroquine [Plaquenil] 400 mg PO DAILYCM 03/01/17 [History Confirmed 06/09/18] Leflunomide [Arava] 20 mg PO DAILY 03/01/17 [History Confirmed 06/09/18] predniSONE tablet 5 mg PO DAILY PRN 03/01/17 [History Confirmed 06/09/18] Omeprazole [Prilosec] 20 mg PO QHS 12/04/17 [History Confirmed 06/09/18] Cyclobenzaprine [Flexeril] 10 mg PO PRN PRN 06/05/18 [History Confirmed 06/09/18] diclofenac 1 % topical gel 2 g TOPICAL ONCE 06/09/18 [History Confirmed 06/09/18] [facility] Medical History Arthritis (Chronic) Chronic back pain (Chronic) Hearing loss (Chronic) Surgical History History of carpal tunnel release (Chronic) History of herniorrhaphy (Chronic) Family History Father Myocardial infarction Hypertension CAD (coronary artery disease) PCI-Stent x 2 Social History Smoking Status: Never smoker ROS Const Const: Negative for fatigue, weakness, difficulty sleeping, frequent falls, headache(s) or excessive sweating Eyes Eyes: Negative for loss of peripheral vision, transient loss of vision, blurry vision or double vision ENT ENT: Negative for headache(s), dizziness, Nosebleed/epistaxis or balance problems Cardio Chest Pain: No Palpitations: Yes feels like its: pounding, fast Edema: None Muscle aches with walking: None Resp Respiratory: Negative for SOB with activity, SOB at rest, SOB orthopnea\SOB lying down or paroxysmal nocturnal dyspnea GI GI: Negative nausea or heartburn : Negative for hematuria Musc Musc: Negative for muscle aches/ myalgia, muscle weakness, joint pain or balance problems Skin Skin: Negative non-healing lesions, unusual bruising or rash Neuro Neuro: Positive for near syncope (became dizzy, had tunnel vision, became diaphoretic); negative for weakness, frequent falls, blurry vision, headache(s), dizziness, lightheadedness, orthostatic symptoms or double vision Raphael Hematologic/Lymphatic: Negative for easy bruising Endo Endo: Negative for fatigue, excessive sweating or increased thirst/drinking Psych Psych: Negative for anxiety or depression Allergy Allergy/Immunology: Negative for hives, Negative for rash Cardiology Exam Const Appearance: cooperative, healthy appearing, well developed, well groomed and no acute distress Nutritional Appearance: well nourished and average body habitus Orientation: alert, awake and oriented x3 Head Head: normal to inspection, normocephalic and atraumatic Ears: hearing grossly normal bilaterally and external ears normal Nose: external nose normal, nasal mucous membranes and turbinates normal, nares normal, septum normal, no nasal discharge Face and Sinus: face symmetric Mouth: oral mucosae normal, tongue normal, oropharynx normal and moist mucous membranes Teeth and gingiva: dentition normal Throat: posterior oropharynx normal, tonsils normal and uvula midline Eyes General: appearance normal, both eyes and all related structures Eyelids: eyelids normal Conjunctivae: conjunctivae normal Pupils: PERRL, normal by confrontation and accommodation normal EOM: EOM intact bilaterally Neck Neck: normal visual inspection, trachea midline and no JVD JVD: +5 Carotids: normal carotid upstroke and bounding pulses Chest Chest inspection: normal inspection of the chest, symmetric chest movement and normal respiratory effort Auscultation: Bilateral: Clear to Auscultation Cardio Palpation: normal PMI Rate: regular rate Rhythm: regular rhythm Heart sounds: S1 normal, S2 normal and normal, physiologic split S2; negative rub, gallop or murmur GI GI: normal to inspection, soft, no hepatosplenomegaly and bowel sounds present Neuro General: alert, awake, oriented x3, no focal sensory deficit, gait normal and moves all extremities Skin Skin: no rashes or lesions noted Extremities Pulses: Normal: Right Femoral Pulse, Left Femoral Pulse, Right Dorsalis Pedis Pulse, Left Dorsalis Pedis Pulse, Right Posterior Tibial Pulse, Left Posterior Tibial Pulse, Right Radial Pulse, Left Radial Pulse Lower Extremity Edema: None: Bilateral Musculoskel Musculoskeletal: No joint tenderness Psych Psychological: normal affect Assessment AND Plan 1. Near syncope R55 Plan He does have a history of near syncope the etiology of which is not entirely clear recommendation would for us to obtain an echocardiogram as well as a 24-hour Holter monitor. Depending on the findings further recommendations will then be made. His blood work that was performed during his hospitalization was noted to be normal including normal BMP as well as CBC.. Orders Orders: 2. Rapid palpitations R00.2 Plan He has these episodes of palpitations where he gets sweaty and flushed and he is noted to have cold clammy extremities with a fine tremor. I would like us to evaluate him for a thyroid disorder as well as a pheochromocytoma. A 24-hour Holter monitor should also be obtained. Depending on the results of these tests further recommendations will then be made. He should also attempt to cut down on his caffeinated beverage intake by half to see whether this would improve any of his symptoms. Thank you for allowing me to participate in the care of your patient. 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) Coding Level of Care Code Off vis,new,level 4 Diagnoses Near syncope R55 Rapid palpitations R00.2 Coding Level of Care Code Off vis,new,level 4 Diagnoses Near syncope R55 Rapid palpitations R00.2 06/09/18 1532 <Electronically signed by Nish Herrera MD> Date Nish Herrera MD Cosigner Signature: Date (if applicable) CC: Evelia Bains MD 12 LEAD ELECTROCARDIOGRAM Observed: 06/08/2018 Status: F Source: [place] 1:43 PM [facility] RE[facility] Cardiovascular Services [address] [facility] [place] [address] 12 Lead EKG 06/05/18 1121 MR#: [id number] Acct: [id number] Name: NICKIE BROWNE Rep #: [id number] : 1965 52 From: Nish Herrera MD Attending Dr: Eyad Colleir DO Status: DIS CANDACE Ordering Dr: Nimco Chao DO Date: 06/05/18 [facility] Sex: M C Admitted: 06/05/18 Test Reason : CP/NEAR SYNCOPE Blood Pressure : / mmHG Vent. Rate : 102 BPM Atrial Rate : 102 BPM P-R Int : 132 ms QRS Dur : 074 ms QT Int : 342 ms P-R-T Axes : 059 -24 019 degrees QTc Int : 445 ms Sinus tachycardia Otherwise normal ECG Confirmed by NIHS HERRERA MD ([id number]), multimedia editor VICENTE KRISHNAN ([id number]) on 06/08/2018 1:42:38 PM Referred By: JESI/OUSMANE Confirmed By:NISH HERRERA MD 06/08/18 1342 Date Nish Herrera MD CC: Evelia Bains MD; Eyad Collier DO; Nimco Chao DO Signed DISCHARGE SUMMARY Observed: 06/06/2018 Status: F Source: [place] 3:58 PM [facility] Medical Records Department [address] [place] [address] Discharge Summary 06/06/18 1451 MR#: [id number] Acct: [id number] Name: NICKIE BROWNE Rep #: [id number] : 1965 52 From: Tevin PENDLETON PCP: Evelia Bains MD Status: DIS CANDACE Y Location: [place] [address] ADDENDUM by Eyad Collier DO on 06/06/18 at 1558 Code Visit OBSV E AND M: [id number] Observation care discharge 06/06/18 1558 <Electronically signed by Eyad Collier DO> Date Eyad Collier DO cc: KEERTHI James; Evelia Bains MD; Eyad Collier DO * Signed Discharge Date and Diagnosis Date of Admission: 06/05/18 Date of Discharge: 06/06/18 - Primary Discharge Diagnosis Near syncope Arthritis - Secondary Discharge Diagnosis Chronic Problems Arthritis (Chronic) Hospital Course and Treatment Imaging Results: RAD/Chest 1 View (Portable) IMPRESSION: No acute cardiopulmonary process. Operations: None Procedures: None Summary of Care Provided: Physical exam on day of discharge: General: Resting comfortably NAD Psych: A/Ox3 normal affect HEENT: PERIRLA AT NC Neck: Supple NT CV: RRR no m/t/r/g/h Resp: CTA Abd: [id number] Soft NT no guarding or rigidity Ext: DP2+= no edema Skin: W/D normal turgor Lymph/Heme: No active bleeding or adenopathy Neuro: CN2-12 intact Hospital course: The patient is a 52 year old M with a history of arthritis who presented to the emergency room with chief complaint of near syncope. Patient reportedly had 3 episodes at home where both with activity at rest he would experience sudden episodes of tunnel vision feeling like he was going to pass out, tightness in his perineal region, shortness of breath. He never fully lost consciousness. He presented to the emergency room and underwent EKG and troponin which were negative. He had a negative d-dimer. His blood work demonstrated mild leukocytosis of unclear etiology, and he had a negative chest x-ray. He was admitted for observation on the PCU with cardiac monitoring. He was monitored overnight and had no abnormalities on telemetry. He had no further symptoms after admission at all. 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 He is advised to also follow-up with his PCP in 1-2 weeks. He is discharged home in stable condition. This patient was seen by Tevin James PA-C under the supervision of Doctor Collier.] Discharge Diet: No Restrictions Discharge Activity: Return to Normal Activity Weight Bearing Status: Full weight bearing Home Medications: Medications to take at Discharge Meloxicam [Mobic] 15 mg PO DAILY 07/18/16 Hydroxychloroquine [Plaquenil] 400 mg PO DAILYCM 03/01/17 Leflunomide [Arava] 20 mg PO DAILY 03/01/17 predniSONE tablet 5 mg PO DAILY PRN 03/01/17 Omeprazole [Prilosec] 20 mg PO QHS 12/04/17 Cyclobenzaprine [Flexeril] 10 mg PO PRN PRN 06/05/18 Primary Care Physician: Evelia Bains MD [Primary Care Provider] - Please follow up with your Primary Care Physician in: call on 06/07/18 for follow up and arrange for ECHO, other possible tests Disposition: Home Minutes spent on discharge:: 35 Patient Condition:: Stable Medical Necessity - Tobacco Use Smoking Status: Never smoker Tobacco Use: Non-smoker Meaningful Use Info Meaningful Use Diagnoses (Choose all that apply): None applicable 06/06/18 1455 <Electronically signed by Tevin PENDLETON> Date Tevin PENDLETON 06/06/18 1512<Electronically signed by Eyad Collier DO> Cosigner Signature (if applicable): Date Eyad Collier DO CC: KEERTHI James; Evelia Bains MD; Eyad Collier DO Signed DISCHARGE INSTRUCTION Observed: 06/06/2018 Status: F Source: [place] 9:48 AM [facility] RE[facility] Medical Records Department [address] [place] [address] Instructions for Home/Discharge Instructions 06/06/18 0945 MR#: [id number] Acct: [id number] Name: NICKIE BROWNE Rep #: [id number] : 1965 52 From: Eyad Collier DO PCP: Evelia Bains MD Status: ADM CANDACE - Discharge Diagnoses Current Active Problems: Current Active and Chronic Problems Near syncope (Acute) Arthritis (Chronic) You will use the following diet at home:: No restrictions Your food should be the consistency of: Regular Your liquids should be the consistency of: Regular/Thin Discharge Activity: Return to Normal Activity Weight Bearing Status: Full weight bearing Allergies/Adverse Reactions: Allergies No Known Allergies Allergy (Verified 06/05/18 11:15) Medications to take at Discharge Meloxicam [Mobic] 15 mg PO DAILY 07/18/16 Hydroxychloroquine [Plaquenil] 400 mg PO DAILYCM 03/01/17 Leflunomide [Arava] 20 mg PO DAILY 03/01/17 predniSONE tablet 5 mg PO DAILY PRN 03/01/17 Omeprazole [Prilosec] 20 mg PO QHS 12/04/17 Cyclobenzaprine [Flexeril] 10 mg PO PRN PRN 06/05/18 Primary Care Physician: Evelia Bains MD [Primary Care Provider] - Please follow up with your Primary Care Physician in: call on 06/07/18 for follow up and arrange for ECHO, other possible tests Test Results: Test results from this visit will be discussed in further detail at your follow-up appointment, if applicable. 06/06/18 0948 <Electronically signed by Eyad Collier DO> Date Eyad Collier DO CC: Evelia Bains MD HISTORY AND PHYSICAL Observed: 06/05/2018 Status: F Source: [place] EXAM 3:15 PM [facility] Medical Records Department [address] [place] [address] History and Physical 06/05/18 1452 MR#: [id number] Acct: [id number] Name: NICKIE BROWNE Rep #: [id number] : 1965 52 From: Tevin PENDLETON PCP: Evelia Bains MD Status: ADM CANDACE Y Location: [place] [address] ADDENDUM by Eyad Collier DO on 06/05/18 at 1515 Code Visit Patient was seen and examined independently of Tevin James, this patient was seen in the emergency room at [facility] with a chief complaint of 3 episodes of what appears to be presyncope over the past 3 days. Patient states during the first 2 episodes on and Thursday, he was working and suddenly felt like he had tunnel vision when he had a odd feeling in his groin area, patient denied actual syncope, he denied any speech difficulties, he did state that he felt short of breath however. Patient denied any chest pain. Evaluation in the emergency room included lab which was remarkable for a white blood cell count of 11.7, EKG showed sinus tachycardia but no evidence of ischemic changes. Chest x-ray was unremarkable. On physical examination, patient was alert and oriented 3, he had no focal neurological findings, lungs are clear bilaterally, heart rate and rhythm was regular, no murmurs were noted, no ectopy was noted. Patient will be placed in observation status on PCU for presyncope, he will be monitored on telemetry, I will hold several of his medications due to his observation status. I discussed this with the patient and his . I have reviewed Tevin James's history and physical and medical plan of care and endorse both OBSV E AND M: [id number] Initial observation care L3 06/05/18 1515 <Electronically signed by Eyad Collier DO> Date Eyad Collier DO cc: KEERTHI James; Evelia Bains MD; Eyad Collier DO * Signed Problem List (1) Near syncope Status: Acute (2) Arthritis Status: Chronic History of Present Illness Date of Admission: 06/05/18 Chief Complaint: near syncope The patient is a 52 year old M with a history of arthritis for which she follows rheumatology, who presented to the emergency room with chief complaint of near syncopal episodes. He states that these began . They would occur without warning both with activity and at rest. He would suddenly have an acute onset of tunnel vision, become short of breath, and feel an unusual tightness sensation in his rectum and pelvis area. He states he felt like he was going to pass out however he was able to fight it off . He has not actually lost consciousness. The sensation would come and go throughout the day, he states a total of 3 times since . He had no associated headache, focal weakness, dizziness, double vision, slurring of speech, facial droop, no chest pain or palpitations. He has no history of seizure. He has no history of stroke. He takes multiple medications for arthritis including prednisone, hydroxychloroquine, Arava, Mobic, Flexeril, denies rheumatic disease. [] Past Medical History Past Medical History (Chronic Problems): Chronic Problems Arthritis (Chronic) Allergies No Known Allergies Allergy (Verified 06/05/18 11:15) Home Medications: Ambulatory Orders Medication Instructions Recorded Meloxicam [Mobic] 15 mg PO DAILY 07/18/16 Hydroxychloroquine [Plaquenil] 400 mg PO DAILYCM 03/01/17 Surgical History: herniorrhaphy, tonsillectomy, - - Carpal tunnel release right Psychiatric History: No pertinent psych hx Lives: Spouse/ Significant Other Smoking Status: Never smoker Tobacco Use: Non-smoker Alcohol: None Drugs: None - *Family History Maternal History Items: No pertinent history Paternal History Items: Heart Disease Review of Systems Constitutional: Denies: Chills, Fever, Weight Change HEENT: Denies: Head Aches, Sinus Congestion, Sinus Drainage Cardiovascular: Reports: Light Headedness. Denies: Chest Pain, Chest Pressure, Edema, Heaviness, Palpitations Respiratory: Reports: Shortness of breath at rest. Denies: Cough, Shortness of Breath, Shortness of breath upon exertion, Sputum production, Wheezing Gastrointestinal: Denies: Abdominal Pain, Nausea, Vomiting Genitourinary: Denies: Dysuria Musculoskeletal: Denies: Joint Pain, Joint Tenderness Skin: Denies: Rash, Wounds Neurological: Denies: Numbness, Tingling, Focal weakness Psychiatric: Denies: Anxiety, Depression, Homicidal Ideations, Suicidal Ideations Hematologic/ Lymphatic: Denies: Easy Bruising, Easy Bleeding VTE Information - Inpt Only VTE Present on Admission: No VTE Mechan Device Prophylaxis: SCD's VTE Pharm Prophylaxis ordered?: Yes Patient Problems: Active and Suspected Problems Near syncope (Acute) - Physical Exam General: Alert, Oriented x3, Cooperative HEENT: Atraumatic, PERRLA, EOMI, Normocephalic Neck: Supple, No JVD, Negative Carotid Bruits Lungs: Clear to auscultation, Normal air movement Cardiovascular: Regular rate, No murmurs Abdomen: Bowel Sounds Present, Soft, Non Tender Extremities: No edema, Capillary Refill Less than 3 Seconds Skin: No rashes, No breakdown Musculoskeletal: No Tenderness to Palpation of Joints or Extremities Neurological: Cranial nerves II-XII grossly intact Psych/Mental Status: Normal Affect, Appropriate, Alert and oriented to time, place, person, mood and affect Vital Signs Temp Pulse Resp BP Pulse Ox 97.6 F L 80 16 142/87 H 97 06/05/18 13:37 06/05/18 13:44 06/05/18 13:37 06/05/18 13:37 06/05/18 13:37 Oxygen Delivery Method Room Air Weight: 70.942 kg Body Mass Index (BMI) 23.1 Orthostatic Vital Signs Start: 06/05/18 14:00 Freq: q24h Status: Active Protocol: Activity Type Activity Date Activity User E-Sign Co-Sign Detail Recorded Client Recorded Date Recorded By Document 06/05/18 13:37 [id number] 06/05/18 14:23 [facility] Orthostatic Vitals Standing -Blood Pressure (90/60-120/80) 155/108 H -Extremity Use Right Arm -Pulse Rate (60-100) 98 Sitting -Blood Pressure (90/60-120/80) 156/99 H Assessment/Plan All Active Problems Near syncope (Acute) 1. Near syncope-multiple episodes of tunnel vision on , symptoms, at rest and during activity without warning. No history of stroke or seizure, no palpitations. No history of heart disease. He will be admitted to the PCU and placed on monitoring. He may need to be set up with a Holter monitor and possibly undergo a stress test. Cardiology will be consulted. Will check orthostatic vital signs. D-dimer was negative, EKG was negative, he had a mildly elevated WBC count and negative troponin labs were otherwise unremarkable. He had a chest x-ray in the ER which was negative. His physical exam was unremarkable orthostatic vitals in the emergency room were neck. 2. Arthritis-continue home medications. DVT prophylaxis: Lovenox Discharge planning: Patient will likely return home with his . This patient was seen by Tevin James PA-C under the supervision of Doctor Collier. 06/05/18 1503 <Electronically signed by Tevin PENDLETON> Date Tevin PENDLETON 06/05/18 1511<Electronically signed by Eyad Collier DO> Cosigner Signature: Date (if applicable) Eyad Collier DO CC: KEERTHI James; Evelia Bains MD; Eyad Collier DO Signed EMERGENCY DEPARTMENT Observed: 06/05/2018 Status: F Source: [place] SUMMARY 12:44 PM [facility] Medical Records Department [address] [place] [address] Emergency Department Summary 06/05/18 1240 MR#: [id number] Acct: [id number] Name: NICKIE BROWNE Rep #: [id number] : 1965 52 From: Nimco Chao DO PCP: Evelia Bains MD Status: REG ER - ER Visit Summary Date of Service: 06/05/18 Chief Complaint: [Near syncope] History of Present Illness: The patient is a 52 M [presents the emergency department with complaint of episodes of near syncope over the last 2 days. Patient states that while at work 2 days ago he was on his hands and knees and got sudden onset of tunnel vision and felt like everything got tight in his body. Patient described becoming very clammy and developed cold sweats. Patient felt like he was in a pass out but did not actually have a syncopal episode. Patient denies any chest pain when this happens but does feel somewhat short of breath. Patient denies any recent illness. He denies recent travel. Patient states that his father's had multiple MIs that started in his 40s. Patient has not had episodes like this before.] She denies any blood in stool or black tarry stools. Physical Examination: [HEENT-PERRLA, EOMI. Cranial nerves II through XII grossly intact. TMs clear. Mucous membranes moist. No adenopathy. Cardiovascular-regular rate and rhythm without murmur or ectopy Lungs-clear to auscultation, chest wall stable without crepitus or subcu emphysema Abdomen-normoactive bowel sounds, soft, nontender, no rebound or rigidity, no peritoneal signs. Neuro rxqp-vpjqiy-qguj and heel kaplan testing within normal limits, negative Romberg, negative pronator drift, fundi benign Extremities-intact 4, normal range of motion, normal pulses, atraumatic] Test Results: [EKG obtained on arrival shows sinus rhythm with a ventricular rate of 102 bpm. No acute I segment changes noted. CBC with differential was significant for a white count of 11.7, hemoglobin 16, hematocrit 48, platelets 267. Chemistries unremarkable. Troponin was less than 0.015. D-dimer was normal less than 0.27. ] Emergency Department Course and Treatment: [Patient had an IV line established and was given normal saline with 25 cc an hour.] Treatment Plan: [Admit for further monitoring and evaluation] Disposition: [Admit] Impression: [Near syncope-etiology uncertain] This note was generated with [employer] software. It may contain incorrect words, spelling, and punctuation that were not noted in review of the chart prior to signing ED Disposition - Plan for ED Patient: Chief Complaint: Syncope Referrals: Evelia Bains MD [Primary Care Provider] - What to do if you have Problems For any increased pain, shortness of breath, bleeding, nausea or vomiting, chest pain, or any unexpected problems, contact your Primary Care Provider. Call [facility] ([phone]) or report to the closest Emergency Room. Call 911 if necessary. 06/05/18 1244 <Electronically signed by Nimco Chao DO> Date Nimco Chao DO Cosigner Signature (If Indicated): Date CC: Evelia Bains MD CBC W/DIFF, AUTOMATED Collected: 06/05/2018 Status: F Source: [place] 11:33 AM [facility] REPOSITORY TYPE CODE TESTS RESULT OUT OF RANGE REFERENCE UNITS LAB L100.1000 4.4-11.0 K/mm3 High WBC 11.7 LAB L100.1200 4.6-6.2 M/mm3 Normal RBC 5.51 LAB L100.1300 13.0-16.5 g/dl Normal HGB 16.1 LAB L100.1400 40-54 % Normal HCT 48.2 LAB L100.1500 80-94 fL Normal MCV 87.5 LAB L100.1600 27.0-32.0 pg Normal MCH 29.2 LAB L100.1700 32-36 g/gl Normal MCHC 33.4 LAB L100.1810 11.6-14.6 % Normal RDW CV 12.7 LAB L100.1820 35.1-43.9 fl Normal RDW SD 40.7 LAB L100.1900 150-450 K/mm3 Normal PLT 267 LAB L100.2000 6.2-12.0 fl Normal MPV 9.6 LAB L100.2100 47-70 % High NEUT% 73.6 LAB L100.2200 19-41 % Low LY% 18.8 LAB L100.2300 0-10 % Normal MONO% 5.0 LAB L100.2400 0-5 % Normal EO% 2.0 LAB L100.2500 0-1 % Normal BASO% 0.4 LAB L100.2550 0.0-0.9 % Normal IM GRAN % 0.200 Result Comment: IG% - Immature Granulocytes (promyelocytes, myelocytes and metamyelocytes) > 1% indicates that a LEFT SHIFT is Present. LAB L100.2620 2.0-7.7 X10 3/uL High Absolute Neut 8.6 LAB L100.2720 0.83-4.51 X10 3/ul Normal Absolute Lymph 2.20 Performed By: #### L100.0100 #### [facility] [address] [place], [place], [id number] BASIC METABOLIC Collected: 06/05/2018 Status: F Source: [place] PROFILE (BMP) 11:33 AM [facility] REPOSITORY TYPE CODE TESTS RESULT OUT OF RANGE REFERENCE UNITS LAB L501.0100 74-106 mg/dL Normal GLU 99 Result Comment: Please note revised GLUCOSE reference range effective 2017. LAB L501.1000 7-18 mg/dL Normal BUN 13 LAB L501.1100 0.70-1.30 mg/dL Normal CREAT,SERUM 1.00 Result Comment: The validity of the calculated GFR AND GFRAA in patients over 70 years has not been determined. Clinical correlation is essential. LAB L501.1110 >60 mL/min Normal EST GFR 84 Result Comment: Non- GFR Calc LAB L501.1115 >60 mL/min Normal EST GFR - AA 101 Result Comment: GFR Calc LAB L501.1255 ml/min Normal Estimated CRCL 87.88 LAB L501.1300 10-20 RATIO Normal BUN/CRE 13.0 LAB L501.2200 8.5-10 mg/dL Normal .1 CA 9.0 LAB L501.5300 136-14 mmol/L Normal 5 NA 140 LAB L501.5600 3.5-5. mmol/L Normal 1 K 4.2 LAB L501.5900 98-107 mmol/L Normal CL 105 LAB L501.6100 21.0-3 mmol/L Normal 2.0 CO2 29.0 LAB L501.6200 5-15 Normal GAP 6 Performed By: #### L500.2500, L501.4010 #### [facility] [address] [facility] [place], [place], [id number] TROPONIN-I Collected: 06/05/2018 Status: F Source: [place] 11:33 AM [facility] REPOSITORY TYPE CODE TESTS RESULT OUT OF RANGE REFERENCE UNITS LAB L501.4010 <0.045 ng/mL Normal < 0.015 TROPONIN-I Result Comment: TROPONIN-I EXPECTED VALUES <0.045 Negative 0.045 - 0.590 Consistent with Cardiac Damage > OR = 0.600 Critical Value Not every elevated troponin is indicative of IL. These values should be used with clinical judgement in examining the patient's clinical picture for diagnosis. To establish a diagnosis of IL versus myocardial injury, there must be a demonstrated rise and/or fall in the troponin values, in addition to ischemic symptoms, EKG changes, new regional wall motion abnormality, and/or angiographical evidence. PLEASE NOTE: REFERENCE RANGES EDITED 18 Performed By: #### L500.2500, L501.4010 #### [facility] [address] [facility] [place], [place], [id number] D-DIMER QUANTITATIVE Collected: 06/05/2018 Status: F Source: [place] (DVT/PE) 11:33 AM [facility] REPOSITORY TYPE CODE TESTS RESULT OUT OF RANGE REFERENCE UNITS LAB L300.8000 0.27-0.49 FEU/ug/m Low D-DIMER < 0.27 QUANT Result Comment: NORMAL D-Dimer level (<0.50) indicates no DVT or PE. Performed By: #### L300.8000 #### [facility] [address] [place], [address] CHEST 1 VIEW Observed: 06/05/2018 Status: F Source: [place] (PORTABLE) 11:29 AM [facility] REPOSITORY [facility] Imaging Services [address] [place] [address] Chest 1 View (Portable) MR#: [id number] Acct: [id number] Name: NICKIE BROWNE Rep #: [id number] : 1965 M 52 From: Nickie Butcher MD PCP: Evelia Bains MD Status: REG ER Study: Chest 1 View (Portable) Date of Exam: 06/05/18 Exam# [id number] Ordering Dr: Nimco Chao DO STUDY: X-RAY CHEST REASON FOR EXAM: Male, 52 years old. Near-syncope TECHNIQUE: Portable upright COMPARISON: 12/27/2014 FINDINGS: The lungs are clear and expanded. Normal cardiomediastinal silhouette, leeann and pleural margins. No acute osseous or upper abdominal process. RAD/Chest 1 View (Portable) IMPRESSION: No acute cardiopulmonary process. Electronically Signed: Nickie Butcher, at 12:25 EDT Tel , Service support , CC: Evelia Bains MD; Nimco Chao DO Business Objects Architect: Signed XR OUTSIDE CD DICOM Observed: 06/05/2018 Status: F Source: [facility] -NBNR 12:00 AM [facility] [place] REPOS[facility] Images were obtained outside of [facility] [id number] CBC W/DIFF, AUTOMATED Collected: 05/08/2018 Status: F Source: [place] 9:27 AM [facility] REPOSITORY TYPE CODE TESTS RESULT OUT OF RANGE REFERENCE UNITS LAB L100.1000 4.4-11.0 K/mm3 Normal WBC 6.6 LAB L100.1200 4.6-6.2 M/mm3 Normal RBC 5.07 LAB L100.1300 13.0-16.5 g/dl Normal HGB 15.1 LAB L100.1400 40-54 % Normal HCT 44.7 LAB L100.1500 80-94 fL Normal MCV 88.2 LAB L100.1600 27.0-32.0 pg Normal MCH 29.8 LAB L100.1700 32-36 g/gl Normal MCHC 33.8 LAB L100.1810 11.6-14.6 % Normal RDW CV 12.6 LAB L100.1820 35.1-43.9 fl Normal RDW SD 40.5 LAB L100.1900 150-450 K/mm3 Normal PLT 281 LAB L100.2000 6.2-12.0 fl Normal MPV 10.2 LAB L100.2100 47-70 % Normal NEUT% 57.5 LAB L100.2200 19-41 % Normal LY% 21.9 LAB L100.2300 0-10 % High MONO% 14.9 LAB L100.2400 0-5 % Normal EO% 4.6 LAB L100.2500 0-1 % Normal BASO% 0.9 LAB L100.2550 0.0-0.9 % Normal IM GRAN % 0.200 Result Comment: IG% - Immature Granulocytes (promyelocytes, myelocytes and metamyelocytes) > 1% indicates that a LEFT SHIFT is Present. LAB L100.2620 2.0-7.7 X10 3/uL Normal Absolute Neut 3.8 LAB L100.2720 0.83-4.51 X10 3/ul Normal Absolute Lymph 1.44 Performed By: #### L100.0100 #### [facility] [address] [place], [place], [address] LIVER PROFILE Collected: 05/08/2018 Status: F Source: [place] 9:27 AM [facility] REPOSITORY TYPE CODE TESTS RESULT OUT OF RANGE REFERENCE UNITS LAB L501.1500 6.4-8.2 g/dL Normal T PROT 7.2 LAB L501.1800 3.2-5.0 g/dL Normal ALB 3.7 LAB L501.1950 2.2-4.2 g/dL Normal GLOB 3.5 LAB L501.4100 15-37 U/L Normal AST 31 LAB L501.4305 45-117 U/L Normal ALK P 79 LAB L501.4405 16-61 U/L Normal ALT 32 LAB L501.4600 0.20-1.00 mg/dL Normal T BILI 0.30 LAB L501.4700 0.00-0.30 mg/dL Normal D BILI 0.10 Performed By: #### L500.3400, L501.1105 #### [facility] [address] [place], [address] SERUM CREATININE AND Collected: 05/08/2018 Status: F Source: [place] GFR 9:27 AM [facility] REPOSITORY TYPE CODE TESTS RESULT OUT OF RANGE REFERENCE UNITS LAB L501.1100 0.70-1.30 mg/dL Normal 0.94 CREAT,SERUM Result Comment: The validity of the calculated GFR AND GFRAA in patients over 70 years has not been determined. Clinical correlation is essential. LAB L501.1110 >60 mL/min Normal EST GFR 90 Result Comment: Non- GFR Calc LAB L501.1115 >60 mL/min Normal EST GFR - AA 108 Result Comment: GFR Calc Performed By: #### L500.3400, L501.1105 #### [facility] [address] [place], [address] SPINE LUMBAR Observed: 04/22/2018 Status: F Source: [place]OS[place] (ROUTINE) 3:31 PM [facility] REPOSITORY [facility] Imaging Services [address] [place] [address] Spine Lumbar (Routine) MR#: [id number] Acct: [id number] Name: NICKIE BROWNE Rep #: [id number] : 1965 M 52 From: Jefry Amin MD PCP: Evelia Bains MD Status: REG CLI Study: Spine Lumbar (Routine) Date of Exam: 04/22/18 Exam# [id number] Ordering Dr: Evelia Bains MD STUDY: MRI LUMBAR SPINE WITHOUT CONTRAST REASON FOR EXAM: Male, 52 years old. Pain TECHNIQUE: Standardized fat and water weighted pulse sequences were obtained in the sagittal and axial planes. COMPARISON: X-ray 03/18/2018 FINDINGS: T12-L1: There is disc desiccation (image 7/32 sagittal T2). Normal lumbar lordosis. There is no substantial scoliosis. Normal conus medullaris that terminates at the T12-L1 level. L1-2: There is disc desiccation (image 7/13 sagittal T2). L2-3: There is disc desiccation, slight loss of disc space height, endplate spondylosis and disc bulge with shallow left extraforaminal disc protrusion (image 18, 17/25 axial T2, 7/13 sagittal T2). There is impingement of the left exiting L2 nerve root. Central and lateral recess spinal stenosis is moderate to marked in nature. L3-4: There is disc desiccation, slight loss of disc space height, endplate spondylosis, disc bulge and right preforaminal disc protrusion. There is marked impingement the right lateral recess. Central and left lateral recess spinal stenosis is moderate to marked in nature (image 14, 13, 12/25 axial T2, 8, 7, 6/13 sagittal T2). L4-5: There is disc desiccation, slight loss of disc space height, endplate spondylosis, disc bulge and facet osteoarthritis (image 8/25 axial T2, T10, 7, 3/13 sagittal T2). Central and lateral recess spinal stenosis is moderate in nature. There is narrowing of the neural foramina. L5-S1: There is disc desiccation, disc bulge and facet osteoarthritis predominating on the left (image 3/25 axial T2, 8/13 sagittal T2). Normal visualized sacral ala. Normal visualized paraspinous soft tissue structures. MRI/Spine Lumbar (Routine) IMPRESSION: Degenerative impingement right lateral recess, L3-L4, with fxolnavl-cu-fhrejv central and left lateral recess spinal stenosis Moderate to marked degenerative central and lateral recess spinal stenosis, L2-L3 with left extraforaminal disc protrusion impinging upon the left exiting L2 nerve root Moderate degenerative central recess spinal stenosis, L4-L5, with narrowing of the neural foramina Multilevel degenerative disease Electronically Signed: Jefry Amin MD at 21:55 EDT Tel , Service support , CC: Evelia Bains MD Business Objects Architect: Signed SPINE THORACIC Observed: 04/22/2018 Status: F Source: [place] (ROUTINE) 3:31 PM [facility] REPOSITORY [facility] Imaging Services [address] [place] [address] Spine Thoracic (Routine) MR#: [id number] Acct: [id number] Name: NICKIE BROWNE Rep #: [id number] : 1965 M 52 From: Peggy Arechiga PCP: Evelia Bains MD Status: REG CLI Study: Spine Thoracic (Routine) Date of Exam: 04/22/18 Exam# [id number] Ordering Dr: Evelia Bains MD STUDY: MRI THORACIC SPINE WITHOUT CONTRAST REASON FOR EXAM: Male, 52 years old. PAIN, POLYARTHRITIS -- upper,lower thoracic pain, low back pain, no radiculopathy, NKI. TECHNIQUE: Standardized fat and water weighted pulse sequences were obtained in the sagittal and axial planes. COMPARISON: None. FINDINGS: Normal kyphosis of the thoracic spine. There is no substantial scoliosis. T1-2, T2-3, T3-4, T4-5, T5-6, T6-7, T7-8, T8-9, T9-10, T10- 11, T11-12: There is diffuse disc space narrowing and endplate spondylosis without significant central canal or foraminal stenosis. Additionally there are multilevel small chronic Schmorl's nodes. Normal visualized thoracic cord. The soft tissue structures are unremarkable. MRI/Spine Thoracic (Routine) IMPRESSION: Mild degenerative changes. Electronically Signed: Peggy Arechiga MD at 11:12 EDT Tel , Service support , CC: Evelia Bains MD Business Objects Architect: Signed DEXA BONE DENSITY Observed: 04/15/2018 Status: F Source: [place] STUDY 2:24 PM [facility] REPOSITORY [facility] Imaging Services [address] [place] [address] Dexa Bone Density Study MR#: [id number] Acct: [id number] Name: NICKIE BROWNE Rep #: [id number] : 1965 M 52 From: Shaan Reese MD PCP: Evelia Bains MD Status: REG CLI Study: Dexa Bone Density Study Date of Exam: 04/15/18 Exam# [id number] Ordering Dr: Evelia Bains MD STUDY: DUAL ENERGY X-RAY ABSORPTIOMETRY / DXA REASON FOR EXAM: Male, 52 years old. Loss of height. TECHNIQUE: Bone Mineral Density (BMD) measurements of lumbar spine and bilateral hips were obtained. COMPARISON: None. FINDINGS: Lumbar Spine (L1-L4): g/cm2 (1.138) / T-score (-0.5) / Z-score (-0.3) Findings are suggestive of normal bone density with a low fracture risk. Left Femur Total: g/cm2 (1.011) / T-score (-0.6) / Z- score (-0.3) Left Femoral Neck: g/cm2 (1.006) / T-score (-0.5) / Z- score (0.2) Right Femur Total: g/cm2 (1.059) / T-score (-0.3) / Z- score (0.1) Right Femoral Neck: g/cm2 (1.016) / T-score (-0.4) / Z-score (0.2) BD/Dexa Bone Density Study IMPRESSION: The patient is considered normal as outlined below according to World Valer[employer] Organization (WHO) criteria with a low fracture risk. Reference Information: The T-score is the number of standard deviations above or below the standard which is normal for young adults at their peak bone mineral density. The World Health Organization (WHO) interprets the T-scores as follows: Above -1 Normal bone density Between -1 and -2.5 Osteopenia Equal to / or below -2.5 Osteoporosis As a practical clinical guideline, osteopenia may be graded as follows: Mild -1 through -1.5 Moderate -1.6 through -2.0 Severe -2.1 through -2.4 The Z-score is the number of standard deviations above or below age-matched controls. A Z-score of less than -1.5 would be considered abnormal. References: 1. NIH Osteoporosis and Related Bone Diseases http://www.osteo.org 2. International Society for Clinical Densitometry http://www.iscd.org 3. National Osteoporosis Foundation http://www.nof.org Electronically Signed: Shaan Reese MD at 15:44 EDT Tel [phone], Service support , CC: Evelia Bains MD Business Objects Architect: Signed THORACIC SPINE 3 Observed: 03/18/2018 Status: F Source: [place] VIEWS 5:26 PM [facility] REPOSITORY [facility] Imaging Services [facility] [place] [address] Thoracic Spine 3 Views MR#: [id number] Acct: [id number] Name: NICKIE BROWNE Rep #: [id number] : 1965 M 52 From: Hernesto Martinez PCP: Evelia Bains MD Status: REG CLI Study: Thoracic Spine 3 Views Date of Exam: 03/18/18 Exam# [id number] Ordering Dr: Evelia Bains MD STUDY: X-RAY - THORACIC SPINE REASON FOR EXAM: Male, 52 years old. Chronic back pain. TECHNIQUE: 3 view(s) of the thoracic spine were obtained. COMPARISON: None. FINDINGS: Alignment is normal. There is mild anterior wedging of several midthoracic vertebral bodies, which is probably old, along with multilevel marginal osteophytes. In the lower cervical spine disc space narrowing with marginal osteophytes. The soft tissue structures are unremarkable. RAD/Thoracic Spine 3 Views IMPRESSION: Multilevel degenerative changes of the lower cervical and lower thoracic spine. Multilevel mild compression fractures in the midthoracic spine which are probably old. If the patient demonstrates focal tenderness consider correlation with MRI. Electronically Signed: Hernesto Martinez MD at 4:27 EDT , Service support , CC: Evelia Bains MD Business Objects Architect: Signed LUMBAR SPINE 2 OR 3 Observed: 03/18/2018 Status: F Source: [place] VIEWS 5:26 PM [facility] REPOSITORY [facility] Imaging Services [address] [place] [address] Lumbar Spine 2 or 3 Views MR#: [id number] Acct: [id number] Name: NICKIE BROWNE Rep #: [id number] : 1965 M 52 From: Hernesto Martinez PCP: Evelia Bains MD Status: REG CLI Study: Lumbar Spine 2 or 3 Views Date of Exam: 03/18/18 Exam# [id number] Ordering Dr: Evelia Bains MD STUDY: X-RAY - LUMBAR SPINE REASON FOR EXAM: Male, 52 years old. Chronic low back pain. TECHNIQUE: 3 view(s) of the lumbar spine were obtained. COMPARISON: None FINDINGS: Normal lumbar lordosis. There is no substantial scoliosis. There is a normal alignment of the vertebrae. Disc space narrowing at multiple levels in the lower thoracic spine as well as from L3-4 through L5-S1. Marginal osteophytes at multiple levels in the lumbar spine. No evidence of acute fracture. The soft tissue structures are unremarkable. RAD/Lumbar Spine 2 or 3 Views IMPRESSION: The level degenerative changes of the lower thoracic and lumbar spine. Electronically Signed: Hernesto Martinez MD at 4:28 EDT , Service support , CC: Evelia Bains MD Business Objects Architect: Signed CBC W/DIFF, AUTOMATED Collected: 03/18/2018 Status: F Source: [place] 5:18 PM [facility] REPOSITORY TYPE CODE TESTS RESULT OUT OF RANGE REFERENCE UNITS LAB L100.1000 4.4-11.0 K/mm3 High WBC 11.6 LAB L100.1200 4.6-6.2 M/mm3 Normal RBC 4.79 LAB L100.1300 13.0-16.5 g/dl Normal HGB 14.1 LAB L100.1400 40-54 % Normal HCT 42.5 LAB L100.1500 80-94 fL Normal MCV 88.7 LAB L100.1600 27.0-32.0 pg Normal MCH 29.4 LAB L100.1700 32-36 g/gl Normal MCHC 33.2 LAB L100.1810 11.6-14.6 % Normal RDW CV 12.8 LAB L100.1820 35.1-43.9 fl Normal RDW SD 41.5 LAB L100.1900 150-450 K/mm3 Normal PLT 271 LAB L100.2000 6.2-12.0 fl Normal MPV 9.3 LAB L100.2100 47-70 % Normal NEUT% 62.1 LAB L100.2200 19-41 % Normal LY% 23.5 LAB L100.2300 0-10 % High MONO% 12.1 LAB L100.2400 0-5 % Normal EO% 1.9 LAB L100.2500 0-1 % Normal BASO% 0.3 LAB L100.2550 0.0-0.9 % Normal IM GRAN % 0.100 Result Comment: IG% - Immature Granulocytes (promyelocytes, myelocytes and metamyelocytes) > 1% indicates that a LEFT SHIFT is Present. LAB L100.2620 2.0-7.7 X10 3/uL Normal Absolute Neut 7.2 LAB L100.2720 0.83-4.51 X10 3/ul Normal Absolute Lymph 2.73 Performed By: #### L100.0100 #### [facility] [address] [facility] [place], [place], [id number] LIVER PROFILE Collected: 03/18/2018 Status: F Source: [place] 5:18 PM [facility] REPOSITORY TYPE CODE TESTS RESULT OUT OF RANGE REFERENCE UNITS LAB L501.1500 6.4-8.2 g/dL Normal T PROT 6.9 LAB L501.1800 3.2-5.0 g/dL Normal ALB 3.7 LAB L501.1950 2.2-4.2 g/dL Normal GLOB 3.2 LAB L501.4100 15-37 U/L Normal AST 37 LAB L501.4305 45-117 U/L Normal ALK P 68 LAB L501.4405 16-61 U/L Normal ALT 33 LAB L501.4600 0.20-1.00 mg/dL Normal T BILI 0.40 LAB L501.4700 0.00-0.30 mg/dL Normal D BILI 0.10 Performed By: #### L500.3400, L501.1105 #### [facility] [address] [facility] [place], [place], [id number] SERUM CREATININE AND Collected: 03/18/2018 Status: F Source: [place] GFR 5:18 PM [facility] REPOSITORY TYPE CODE TESTS RESULT OUT OF RANGE REFERENCE UNITS LAB L501.1100 0.70-1.30 mg/dL Normal 1.06 CREAT,SERUM Result Comment: The validity of the calculated GFR AND GFRAA in patients over 70 years has not been determined. Clinical correlation is essential. LAB L501.1110 >60 mL/min Normal EST GFR 78 Result Comment: Non- GFR Calc LAB L501.1115 >60 mL/min Normal EST GFR - AA 95 Result Comment: GFR Calc Performed By: #### L500.3400, L501.1105 #### [facility] [address] [place], [address] ORTHOPEDIC VISIT Observed: 02/09/2018 Status: F Source: [place] REPORT 3:18 PM [facility] REPOSITORY [facility] [address] [place] [address] [address] [place] [address] OFFICE VISIT Date of Service: 02/09/18 MR#: [id number] Acct: [id number] Name: NICKIE BROWNE Rep #: [id number] : 1965 Provider: María Hurd DO Age/Sex: 52/M Location: [facility] [place] Status: Signed Intake Intake Visit Reasons: LEFT THUMB Is patient in pain?: Yes Allergies No Known Allergies Allergy (Verified 02/09/18 09:32) Medications Meloxicam [Mobic] 15 mg PO DAILY 07/18/16 [History Confirmed 12/04/17] Hydroxychloroquine [Plaquenil] 400 mg PO DAILYCM 03/01/17 [History Confirmed 12/04/17] Leflunomide [Arava] 20 mg PO DAILY 03/01/17 [History Confirmed 12/04/17] PredniSONE 5 mg PO DAILY PRN 03/01/17 [History Confirmed 12/04/17] Omeprazole [Prilosec] 20 mg PO QHS 12/04/17 [History Confirmed 12/04/17] PFSH Social History Smoking Status: Former smoker HPI LEFT THUMB: Details: NICKIE BROWNE is a 52 year old M here today with his for left thumb pain. Patient complains of pain over the base of this thumb. He notes that he has grinding. He has decreased range of motion. Patient notes that he has thumb swelling. 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 Patient has constant pain and nothing decreases his pain. Patient denies any recent injections. He had an injection by his arthritis doctor in [place] in September. Denies numbness, tingling or other associated symptoms. ROS Const Reports system reviewed and no additional complaints, except as docu Eyes Reports system reviewed and no additional complaints, except as docu ENT Reports system reviewed and no additional complaints, except as docu Card Reports system reviewed and no additional complaints, except as docu Resp Reports system reviewed and no additional complaints, except as docu GI Reports system reviewed and no additional complaints, except as docu Reports system reviewed and no additional complaints, except as docu Musc Reports joint pain, Reports joint swelling, Reports stiffness Skin/Breast Reports system reviewed and no additional complaints, except as docu Neuro Yes system reviewed and no additional complaints, except as docu Psych Reports system reviewed and no additional complaints, except as docu Endo Reports system reviewed and no additional complaints, except as docu Ortho Exam Left Wrist/Hand Skin/Wound: Yes CDI Contralateral Normal: Yes A1 quentin trigger: No Left Wrist: Yes ROM-Extension 0-60, Yes ROM-Flexion 0-80, Yes ROM-Pronation 0-80 and Yes ROM-Supination 0-90 Motor: EPL: 5, FDP-2: 5, 1st Dorsal Interosseous: 5, APB: 5 Sensation: Radial: I, Ulnar: I, Median: I WRIST: painful cmc jt, pos grind Office Procedures Ortho Injections Injections Yes CMC Left Details: Obtained consent for injection. Under sterile conditions, injected the patients left CMC with a 1.5cc cocktail of 1cc bupivacaine and 0.5cc kenalog. The patient tolerated the injection well without any noted complication. Patient should call our office if redness develops, pain worsens or if they have any concerns. Office Meds Kenalog Performing Provider: María Hurd DO Administered by: María Hurd DO on 02/09/18 09:49 Dose Route Admin Location Lot Number Expiration DateNDC Retread Operator 2 mg Intra-Articularleft cmc [id number] 06/23/19 9246-1390-21 TiVUS Assessment AND Plan 1. Primary osteoarthritis of first carpometacarpal joint of left hand M18.12 Plan Discussed risks and benefits from having a CMC arthroplasty done on his left hand. Patient uses his left hand for his work and has 5 years left of work remaining. Patient would like to retain his strength and as surgery as there is a risk to decrease function of that extremity he would like to forego surgery today. Discussed other options we decided to proceed with a left CMC injection. See chart below and above. Discussed if non- surgical intervention fail in the next would be due to do a CMC arthroplasty. Patient is aware of the aware of the risks and benefits and would like to proceed with the injection today follow-up on an as-needed basis. Reviewed the surgery for CMC arthroplasty but with his job and heavy lifting it would be beneficial to continue with conservative care and injections as long as they are helpful. Instructed to pay attention to his normal daily activities and his reliance on the thumb and joint to function. He can return 3-4 months for another injection Follow up as needed or sooner if pain, swelling, numbness or associated symptoms, or concerns develop. All questions answered. Patient in agreement of plan. 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) 02/09/18 1518 <Electronically signed by María Hurd DO> Date María Hurd DO Cosigner Signature: Date (if applicable) CC: CBC W/DIFF, AUTOMATED Collected: 02/09/2018 Status: F Source: [place] 10:20 AM [facility] REPOSITORY TYPE CODE TESTS RESULT OUT OF RANGE REFERENCE UNITS LAB L100.1000 4.4-11.0 K/mm3 Normal WBC 7.0 LAB L100.1200 4.6-6.2 M/mm3 Normal RBC 4.90 LAB L100.1300 13.0-16.5 g/dl Normal HGB 14.3 LAB L100.1400 40-54 % Normal HCT 43.8 LAB L100.1500 80-94 fL Normal MCV 89.4 LAB L100.1600 27.0-32.0 pg Normal MCH 29.2 LAB L100.1700 32-36 g/gl Normal MCHC 32.6 LAB L100.1810 11.6-14.6 % Normal RDW CV 13.1 LAB L100.1820 35.1-43.9 fl Normal RDW SD 42.6 LAB L100.1900 150-450 K/mm3 Normal PLT 272 LAB L100.2000 6.2-12.0 fl Normal MPV 9.8 LAB L100.2100 47-70 % Normal NEUT% 60.0 LAB L100.2200 19-41 % Normal LY% 20.7 LAB L100.2300 0-10 % High MONO% 15.9 LAB L100.2400 0-5 % Normal EO% 2.7 LAB L100.2500 0-1 % Normal BASO% 0.6 LAB L100.2550 0.0-0.9 % Normal IM GRAN % 0.100 Result Comment: IG% - Immature Granulocytes (promyelocytes, myelocytes and metamyelocytes) > 1% indicates that a LEFT SHIFT is Present. LAB L100.2620 2.0-7.7 X10 3/uL Normal Absolute Neut 4.2 LAB L100.2720 0.83-4.51 X10 3/ul Normal Absolute Lymph 1.44 Performed By: #### L100.0100 #### [facility] [address] [place] [address]. [place], [address] LIVER PROFILE Collected: 02/09/2018 Status: F Source: [place] 10:20 AM [facility] REPOSITORY TYPE CODE TESTS RESULT OUT OF RANGE REFERENCE UNITS LAB L501.1500 6.4-8.2 g/dL Normal T PROT 7.2 LAB L501.1800 3.2-5.0 g/dL Normal ALB 3.8 LAB L501.1950 2.2-4.2 g/dL Normal GLOB 3.4 LAB L501.4100 15-37 U/L Normal AST 33 LAB L501.4305 45-117 U/L Normal ALK P 70 LAB L501.4405 16-61 U/L Normal ALT 33 Result Comment: Please note revised ALT reference range effective 2017. LAB L501.4600 0.20-1.00 mg/dL Normal T BILI 0.50 LAB L501.4700 0.00-0.30 mg/dL Normal D BILI 0.10 Performed By: #### L500.3400, L501.1105 #### [facility] [address] [place], [address] SERUM CREATININE AND Collected: 02/09/2018 Status: F Source: [place] GFR 10:20 AM [facility] REPOSITORY TYPE CODE TESTS RESULT OUT OF RANGE REFERENCE UNITS LAB L501.1100 0.70-1.30 mg/dL Normal 0.94 CREAT,SERUM Result Comment: The validity of the calculated GFR AND GFRAA in patients over 70 years has not been determined. Clinical correlation is essential. LAB L501.1110 >60 mL/min Normal EST GFR 90 Result Comment: Non- GFR Calc LAB L501.1115 >60 mL/min Normal EST GFR - AA 109 Result Comment: GFR Calc Performed By: #### L500.3400, L501.1105 #### [facility] [address] [place], [place], [address] CBC W/DIFF, AUTOMATED Collected: 12/17/2017 Status: F Source: [place] 8:46 AM [facility] REPOSITORY Order Comment: CBCD,LIVER,CREATINE FOR DR RUIZ REST FOR DR NEWELL TYPE CODE TESTS RESULT OUT OF RANGE REFERENCE UNITS LAB L100.1000 4.4-11.0 K/mm3 Normal WBC 10.6 LAB L100.1200 4.6-6.2 M/mm3 Normal RBC 5.00 LAB L100.1300 13.0-16.5 g/dl Normal HGB 14.5 LAB L100.1400 40-54 % Normal HCT 44.2 LAB L100.1500 80-94 fL Normal MCV 88.4 LAB L100.1600 27.0-32.0 pg Normal MCH 29.0 LAB L100.1700 32-36 g/gl Normal MCHC 32.8 LAB L100.1810 11.6-14.6 % Normal RDW CV 12.8 LAB L100.1820 35.1-43.9 fl Normal RDW SD 41.1 LAB L100.1900 150-450 K/mm3 Normal PLT 269 LAB L100.2000 6.2-12.0 fl Normal MPV 10.3 LAB L100.2100 47-70 % Normal NEUT% 62.5 LAB L100.2200 19-41 % Normal LY% 22.9 LAB L100.2300 0-10 % High MONO% 11.6 LAB L100.2400 0-5 % Normal EO% 2.5 LAB L100.2500 0-1 % Normal BASO% 0.3 LAB L100.2550 0.0-0.9 % Normal IM GRAN % 0.200 Result Comment: IG% - Immature Granulocytes (promyelocytes, myelocytes and metamyelocytes) > 1% indicates that a LEFT SHIFT is Present. LAB L100.2620 2.0-7.7 X10 3/uL Normal Absolute Neut 6.6 LAB L100.2720 0.83-4.51 X10 3/ul Normal Absolute Lymph 2.42 Performed By: #### L100.0100 #### [facility] [address] [place], [address] COMPREHENSIVE METABOLIC Collected: 12/17/2017 Status: F Source: [facility] 8:46 AM [facility] REPOSITORY Order Comment: CBCD,LIVER,CREATINE FOR DR RUIZ REST FOR DR NEWELL TYPE CODE TESTS RESULT OUT OF RANGE REFERENCE UNITS LAB L501.0100 70-110 mg/dL Normal GLU 94 LAB L501.1000 7-18 mg/dL Normal BUN 16 LAB L501.1100 0.70-1.30 mg/dL Normal 0.96 CREAT,SERUM Result Comment: The validity of the calculated GFR AND GFRAA in patients over 70 years has not been determined. Clinical correlation is essential. LAB L501.1110 >60 mL/min Normal EST GFR 88 Result Comment: Non- GFR Calc LAB L501.1115 >60 mL/min Normal EST GFR - AA 106 Result Comment: GFR Calc LAB L501.1300 10-20 RATIO Normal BUN/CRE 16.6 LAB L501.1500 6.4-8.2 g/dL T Normal PROT 7.5 LAB L501.1800 3.4-5.0 g/dL Normal ALB 3.9 Result Comment: Please note revised Albumin AND Globulin reference range effective 2017. LAB L501.1950 2.2-4.2 g/dL Normal GLOB 3.6 LAB L501.2000 0.9-2.4 RATIO Normal A/G 1.1 LAB L501.2200 8.5-10.1 mg/dL Normal CA 8.6 LAB L501.4100 15-37 U/L Normal AST 26 LAB L501.4305 45-117 U/L Normal ALK P 67 LAB L501.4405 12-78 U/L Normal ALT 32 LAB L501.4600 0.20-1.00 mg/dL Normal T BILI 0.50 LAB L501.5300 136-145 mmol/L Normal NA 141 LAB L501.5600 3.5-5.1 mmol/L Normal K 4.1 LAB L501.5900 98-107 mmol/L Normal CL 105 LAB L501.6100 21.0-32.0 mmol/L Normal CO2 26.0 LAB L501.6200 5-15 Normal GAP 10 Performed By: #### L500.4050, L500.4100, L501.4700, L501.9910 #### [facility] [address] [place], [address] LIPID PROFILE Collected: 12/17/2017 Status: F Source: [place] 8:46 AM [facility] REPOSITORY Order Comment: CBCD,LIVER,CREATINE FOR DR RUIZ REST FOR DR NEWELL TYPE CODE TESTS RESULT OUT OF RANGE REFERENCE UNITS LAB L501.4900 200 mg/dL High CHOL 208 Result Comment: <200 mg/dL Desirable 200-240 mg/dL Borderline >240 mg/dL High Risk LAB L501.5000 mg/dL Normal TRIG 66 Result Comment: The drugs N-Acetylcysteine and Metamizole may falsely depress this assay. Serum Triglycerides Reference Interval Normal <150 mg/dL Borderline high 150 - 199 mg/dL High 200 - 499 mg/dL Very High > or = 500 mg/dL LAB L501.6400 mg/dL Normal HDL 72 Result Comment: The drugs N-Acetylcysteine and Metamizole may falsely depress this assay. Reference Range HDL <40 mg/dL Low HDL Cholesterol HDL >or= 60 mg/dL High HDL Cholesterol LAB L501.6500 0-130 mg/dL Normal LDL 123 LAB L501.6600 5-40 mg/dL Normal VLDL 13 Performed By: #### L500.4050, L500.4100, L501.4700, L501.9910 #### [facility] [address] [place], [address] BILIRUBIN, DIRECT Collected: 12/17/2017 Status: F Source: [place] 8:46 AM [facility] REPOSITORY Order Comment: CBCD,LIVER,CREATINE FOR DR JOSEPH LITTLE FOR DR NEWELL TYPE CODE TESTS RESULT OUT OF RANGE REFERENCE UNITS LAB L501.4700 0.00-0.30 mg/dL Normal D BILI 0.12 Performed By: #### L500.4050, L500.4100, L501.4700, L501.9910 #### [facility] [address] [place], [address] PSA,TOTAL - ANNUAL Collected: 12/17/2017 Status: F Source: [place] SCREEN 8:46 AM [facility] REPOSITORY Order Comment: CBCD,LIVER,CREATINE FOR DR JOSEPH LITTLE FOR DR NEWELL TYPE CODE TESTS RESULT OUT OF RANGE REFERENCE UNITS LAB L501.9910 0.00-4.00 ng/mL Normal PSA,TOT 1.14 SCREEN Result Comment: This test was performed using the TPSA assay method for the [employer] CHP chemistry system. Values obtained with different assay methods cannot be used interchangably. When changing PSA assays in the course of monitoring a patient, additional sequential testing should be carried out to confirm baseline values. Performed By: #### L500.4050, L500.4100, L501.4700, L501.9910 #### [facility] [address] [place], [address] ALLERGIES ALLERGIES DATE TYPE / CODE NAME / CODE REACTION SEVERITY SOURCE 11/10/2018 Drug No Known Unknown [facility] Allergy/416 Allergies/P34808 Hospital 849336(SNOM 0388(RXNORM) Repository ED CT) Drug NO KNOWN [facility] Class/95773 ALLERGIES Main [place] 1003(SNOMED Repository CT) ENCOUNTERS ENCOUNTERS ADMIT/DISCHARGE ACCOUNT ADMITTING ENCOUNTER LOCATION SOURCE NUMBER CLASS 11/26/2018/11/26/19 [id number] Unknown [facility]ulatory [facility] Repository 11/12/2018 [id number] Ambulatory [facility] ding:LAB Repository 11/10/2018/11/11/20 [id number] Emergency [address] ding:ED Repository 11/08/2018/11/09/20 [id number] [place], Inpatient [facility] [address] R. Encounter [facility]ild[facility] om: P185Imr: System 01 Repository 11/06/2018 [id number] Ambulatory [facility] ding:LAB Repository 11/02/2018/11/02/20 [id number] Unknown Ambulatory [facility] Repository 10/26/2018/10/27/20 [id number] Unknown Ambulatory [facility] Repository 10/21/2018/10/26/20 [id number] Ambulatory [address] Repository 10/18/2018/10/18/20 [id number] Ambulatory [address] Repository 10/09/2018 [id number] Ambulatory [facility] ding:LAB.FUT Repository URE 10/06/2018/10/06/20 [id number] Ambulatory [address] Repository 10/06/2018/10/15/20 [id number] Ambulatory [address] Repository 09/27/2018 [id number] Ambulatory [facility] ding:CT Repository 09/21/2018 [id number] Ambulatory [facility] ding:NM Repository 09/10/2018/09/10/20 [id number] Ambulatory BMSBuilding: [facility] 18 [facility] Repository 08/31/2018 [id number] Ambulatory [facility] ding:LAB.FUT Repository URE 08/27/2018/08/28/20 [id number] Cathy Rodriguez Ambulatory [address] ding:SZ8Gvkr Repository : NE600Dna: 1 08/09/2018/08/09/20 [id number] Ambulatory [address] Repository 08/05/2018/08/05/20 [id number] Ambulatory [address] Repository 08/05/2018/08/05/20 [id number] Ambulatory [address] Repository 08/03/2018 [id number] Ambulatory BMSBuilding: [facility] Repository 07/29/2018 [id number] Ambulatory [facility] ding:LABSPEC Repository 07/20/2018/07/20/20 [id number] Ambulatory BMSBuilding: [place] 18 [facility] Repository 07/13/2018/07/13/20 [id number] Ambulatory BMSBuilding: [place] 18 [facility] Repository 07/13/2018 [id number] Ambulatory [facility] ding:CT Repository 07/06/2018 [id number] Ambulatory BMSBuilding: [place] BMS.[facility] Repository 07/06/2018 [id number] Ambulatory [facility] ding:US Repository 06/23/2018 [id number] Ambulatory [facility] ding:NM Repository 06/21/2018 [id number] Ambulatory [facility] ding:LAB Repository 06/15/2018 [id number] Ambulatory BMSBuilding: [place] Repository 06/15/2018 [id number] Ambulatory [facility] ding:CVS Repository 06/11/2018/06/11/20 [id number] Ambulatory BMSBuilding: [place] 18 [facility] Repository 06/09/2018 [id number] Ambulatory [facility] ding:LAB Repository 06/09/2018/06/09/20 [id number] Ambulatory BMSBuilding: [place] 18 [facility] Repository 06/09/2018 [id number] Ambulatory BMSBuilding: [place] BMS.[facility] Repository 06/05/2018/06/06/20 [id number] [facility] [place] 18 [facility] ding:PCURoom Repository : RHO037Tbq: 1 06/05/2018 [id number] Tereletsmaribel, Ambulatory BMSBuilding: [place] Eyad BMS.[facility] Repository 06/05/2018 [id number] Josseelet[place], Ambulatory BMSBuilding: [place] Eyad BMS.[facility] Repository 05/08/2018 [id number] Ambulatory [facility] ding:LAB Repository 04/22/2018 [id number] Ambulatory [facility] ding:MRI Repository 04/22/2018 [id number] Ambulatory [facility] ding:MRI Repository 04/15/2018 [id number] Ambulatory [facility] ding:OPBD Repository 03/18/2018 [id number] Ambulatory [facility] ding:LAB Repository 02/09/2018 [id number] Ambulatory [facility] ding:LAB Repository 02/09/2018/02/10/20 [id number] Ambulatory BMSBuilding: [place] 18 BMS[facility] Repository 12/17/2017/12/17/19 [id number] Ambulatory [address] ding:LAB Repository PAYERS PAYERS ENCOUNTER GUARANTOR PAYER SUBSCRIBER SOURCE 11/26/2018 NICKIE A Primary NICKIE Teague [facility] SCHIEDOB: Insurance:BLUE SCHIEDOB: System Repository [id number] CROSS/HMO,PPO,POSPoli [id number] cy Number: [address] [address], [id number] [address] [place] [address] 40421Urn: Date:2016-11-23 62343Isn: [phone] () () () 11/12/2018 NICKIE A Primary [facility]IE [facility]88 TR Insurance:ANTHEMPolic SCHIEDOB: Hospital [address] [place] [address], y Number: [id number] Repository [place] [id number] [phone]: Date:1882-88-95IP [address]CFHGCPB, [place] () [address]QB: 11/12/2018 Secondary NOT GIVENUNK [facility] Insurance:SELF PAY Hospital INSURANCEPolicy Repository Number: Effective Date:2018-10-09 11/10/2018 NICKIE A Primary NICKIE A [place] [facility] [id number] TR Insurance:ANTHEMPolic SCHIEDOB: Hospital [address] [place] [address], y Number: [id number] Repository [place] [address]Ufz: [id number] Date:3845-00-65ZZ BOX () [address], [place] [address]OF: 11/10/2018 Secondary NOT GIVENUNK [facility] Insurance:SELF PAY Hospital INSURANCEPolicy Repository Number: Effective Date:2018-11-10 11/08/2018 NICKIE A Primary NICKIE A [facility] SCHIEDOB: Insurance:BLUE SCHIEDOB: System Repository [id number] CROSS/HMO,PPO,POSPoli [id number] cy Number: [address] [place] [address], [id number] [address] [place] [address] 18705Dwy: Date:2016-11-23 55707Ikz: [phone] () () () 11/06/2018 NICKIE A Primary NICKIE A [facility] [id number] TR Insurance:ANTHEMPolic SCHIEDOB: [address], y Number: [id number] Repository [place] [id number] [phone]: Date:1117-30-10PY [address]KHQ[address]Z, [place] () [address]ZI: 11/06/2018 Secondary NOT GIVENUNK [facility] Insurance:SELF PAY Hospital INSURANCEPolicy Repository Number: Effective Date:2018-11-06 11/02/2018 NICKIE A Primary NICKIE Teague [facility] SCHIEDOB: Insurance:BLUE SCHIEDOB: System Repository [id number] CROSS/O,PPO,POSPoli [id number] cy Number: [address] [place] [address], [id number] [address] [place] [address] 39[address]Lgi: Date:2016-11-23 77707Uin: [phone] (HP) (HP) (WP) 10/26/2018 NICKIE A Primary NICKIE Teague [facility] SCHIEDOB: Insurance:BLUE SCHIEDOB: System Repository [id number] CROSS/O,PPO,POSPoli [id number] cy Number: [address], [id number] [address] [place] [address] 89923Zai: Date:2016-11-23 64018Lki: [phone] (HP) (HP) (WP) 10/09/2018 NICKIE A Primary NICKIE Teague [facility] [id number] TR Insurance:ANTHEMPolic SCHIEDOB: [address], y Number: [id number] Repository id [id number] [phone]: Date:3780-72-68ZM [address] [place] [address] () [address]46[address]ZA: 10/09/2018 Secondary NOT GIVENUNK [facility] Insurance:SELF PAY Hospital INSURANCEPolicy Repository Number: Effective Date:2018-09-06 09/27/2018 NICKIE A Primary NICKIE A [facility] [id number] TR Insurance:ANTHEMPolic SCHIEDOB: [address], y Number: [id number] Repository [place] [id number] [phone]: Date:5384-56-79VD [address]OFIHYOLDAMEON [address]FF[address] () [address]TE: 09/27/2018 Secondary NOT GIVENUNK [place] [facility] Insurance:SELF PAY Hospital INSURANCEPolicy Repository Number: Effective Date:2018-09-24 09/21/2018 NICKIE A Primary NICKIE A [place] [facility] [id number] TR Insurance:ANTHEMPolic SCHIEDOB: [address], y Number: [id number] Repository id [id number] [phone]: Date:5836-20-43FW [address]YNUXEPDDAMEON HUFFMAN () 28[address]DV: 09/21/2018 Secondary NOT GIVENUNK [place] [facility] Insurance:SELF PAY Hospital INSURANCEPolicy Repository Number: Effective Date:2018-09-10 09/10/2018 NICKIE A Primary NICKIE A [facility] [id number] TR Insurance:ANTHEMPolic SCHIEDOB: [address], y Number: [id number] Repository [place] [id number] [phone]: Date:3217-98-42JH [address]WXTZZJED[address]FF[address] () [address]BX: 09/10/2018 Secondary NOT GIVENUNK [facility] Insurance:SELF PAY Hospital INSURANCEPolicy Repository Number: Effective Date:2018-09-10 08/31/2018 NICKIE A Primary NICKIE A [place] [facility] [id number] TR Insurance:ANTHEMPolic SCHIEDOB: [address], y Number: [id number] Repository [place] [id number] [phone]: Date:1656-03-01VN [address]IDQMIZTD[address]FF[address] () [address]CV: 08/31/2018 Secondary NOT GIVENUNK [place] [facility] Insurance:SELF PAY Hospital INSURANCEPolicy Repository Number: Effective Date:2018-08-24 08/27/2018 NICKIE A Primary NICKIE A [facility] [id number] TR Insurance:ANTHEMPolic SCHIEDOB: [address], y Number: [id number] Repository [place] [id number] [phone]: Date:9797-27-81XH [address]BQMOEMRDAMEON [address]FF[address] () [address]PR: 08/27/2018 Secondary NOT GIVENUNK [facility] Insurance:SELF PAY Hospital INSURANCEPolicy Repository Number: Effective Date:2018-08-24 08/03/2018 NICKIE A Primary NICKIE A [facility] [id number] TR Insurance:ANTHEMPolic SCHIEDOB: Hospital [address] [place] [address], y Number: [id number] Repository [place] [id number] [phone]: Date:6805-81-73DQ [address]JBNDZX, [place] () [address]VX: 08/03/2018 Secondary NOT GIVENUNK [place] [facility] Insurance:SELF PAY Hospital INSURANCEPolicy Repository Number: Effective Date:2018-07-20 07/29/2018 NICKIE A Primary NICKIE A [place] [facility] [id number] TR Insurance:ANTHEMPolic SCHIEDOB: Hospital [address] [place] [address], y Number: [id number] Repository [place] [id number] [phone]: Date:8116-98-48FD [address]GZLCRPI, [place] () [address]ZN: 07/29/2018 Secondary NOT GIVENUNK [place] [facility] Insurance:SELF PAY Hospital INSURANCEPolicy Repository Number: Effective Date:2018-07-29 07/20/2018 NICKIE A Primary NICKIE A [facility] [id number] TR Insurance:ANTHEMPolic SCHIEDOB: Hospital [address] [place] [address], y Number: [id number] Repository [place] [id number] [address]Ifi: Date:7649-71-98WK [address]YFAPCOD, [place] () [address]DT: 07/20/2018 Secondary NOT GIVENUNK [facility] Insurance:SELF PAY Hospital INSURANCEPolicy Repository Number: Effective Date:2018-07-15 07/13/2018 NICKIE A Primary NICKIE A [facility] [id number] TR Insurance:ANTHEMPolic SCHIEDOB: [address], y Number: [id number] Repository [place] [id number] [phone]: Date:3613-77-65KK [address] D[address] () [address]XZ: 07/13/2018 Secondary NOT GIVENUNK [facility] Insurance:SELF PAY Hospital INSURANCEPolicy Repository Number: Effective Date:2018-07-13 07/13/2018 [facility] [id number] TR Insurance:ANTHEMPolic SCHIEDOB: [address], y Number: [id number] Repository [place] [id number] [phone]: Date:5092-18-77QN [address]VLIZPNZDAMEON [address]FF[address] () [address]PM: 07/13/2018 Secondary NOT GIVENUNK [facility] Insurance:SELF PAY Hospital INSURANCEPolicy Repository Number: Effective Date:2018-07-02 07/06/2018 NICKIE A Primary NICKIE A [facility] [id number] Insurance:ANTHEMPolic SCHIEDOB: [facility] y Number: [id number] Repository [address] [place] [address], [id number] [place] Date:3410-24-83AJ [address] [address]Rvf: 107[address]JZAYKAMDAMEON HUFFMAN [address]ZC: [phone] 07/06/2018 Secondary NOT GIVENUNK [facility] Insurance:SELF PAY Hospital INSURANCEPolicy Repository Number: Effective Date:2018-06-09 07/06/2018 NICKIE A Primary NICKIE A [facility] [id number] TR Insurance:ANTHEMPolic SCHIEDOB: [address], y Number: [id number] Repository [place] [id number] [phone]: Date:2005-75-39WT [address]KJZHUXFDAMEON [address]FF[address] () [address]XI: 07/06/2018 Secondary NOT GIVENUNK [facility] Insurance:SELF PAY Hospital INSURANCEPolicy Repository Number: Effective Date:2018-06-29 06/23/2018 NICKIE A Primary NICKIE [place] [facility] [id number] TR Insurance:ANTHEMPolic SCHIEDOB: Hospital [address] [place] [address], y Number: [id number] Repository [place] [id number] [phone]: Date:9710-49-81QF [address]JKYZMIW, [place] () [address]GB: 06/23/2018 Secondary NOT GIVENUNK [facility] Insurance:SELF PAY Hospital INSURANCEPolicy Repository Number: Effective Date:2018-06-21 06/21/2018 NICKIE A Primary NICKIE A [place] [facility] [id number] TR Insurance:ANTHEMPolic SCHIEDOB: Hospital [address] [place] [address], y Number: [id number] Repository [place] [id number] [phone]: Date:6379-41-71PY [address]UOANNMO, [place] () [address]LI: 06/21/2018 Secondary NOT GIVENUNK [facility] Insurance:SELF PAY Hospital INSURANCEPolicy Repository Number: Effective Date:2018-06-21 06/15/2018 NICKIE A Primary NICKIE A [place] [facility] [id number] TR Insurance:ANTHEMPolic SCHIEDOB: Hospital [address] [place] [address], y Number: [id number] Repository [place] [id number] [phone]: Date:2800-45-90CZ [address]OQXQVKP, [place] () [address]CY: 06/15/2018 Secondary NOT GIVENUNK [facility] Insurance:SELF PAY Hospital INSURANCEPolicy Repository Number: Effective Date:2018-06-15 06/15/2018 NICKIE A Primary NICKIE A [facility] [id number] TR Insurance:ANTHEMPolic SCHIEDOB: Hospital [address] [place] [address], y Number: [id number] [place]ository [place] [id number]: Date:5986-16-95MM [address]BGPTZUXD[address]ON HUFFMAN () 45413BC: 06/15/2018 Secondary NOT GIVENUNK [facility] Insurance:SELF PAY Hospital INSURANCEPolicy Repository Number: Effective Date:2018-06-09 06/11/2018 NICKIE A Primary NICKIE A [facility] [id number] TR Insurance:ANTHEMPolic SCHIEDOB: [address], y Number: [id number] [place] [id number]: Date:9518-46-38IF [address]XVHWZIWD[address]ON HUFFMAN () [address]ZA: 06/11/2018 Secondary NOT GIVENUNK [facility] Insurance:SELF PAY [facility] INSURANCEPolicy Repository Number: Effective Date:2018-06-11 06/09/2018 NICKIE A Primary NICKIE A [facility] [id number] TR Insurance:ANTHEMPolic SCHIEDOB: [address], y Number: [id number] [place]ository [place] [id number] [phone]: Date:9128-97-88BT [address]SPOSUIEDAMEON [address]FFMAN () [address]CO: 06/09/2018 Secondary NOT GIVENUNK [facility] Insurance:SELF PAY [facility] INSURANCEPolicy Repository Number: Effective Date:2018-06-09 06/09/2018 NICKIE A Primary NICKIE A [facility] [id number] TR Insurance:ANTHEMPolic SCHIEDOB: [facility] [address] [place] [address], y Number: [id number] [place]ository [place] [id number] [phone]: Date:5477-42-80KJ [address]GSDGHVEDAMEON [address]FFMAN () [address]PH: 06/09/2018 Secondary NOT GIVENUNK [facility] Insurance:SELF PAY [facility] INSURANCEPolicy Repository Number: Effective Date:2018-06-09 06/09/2018 NICKIE A Primary NICKIE A [facility] [id number] TR Insurance:ANTHEMPolic SCHIEDOB: [facility] [address] [place] [address], y Number: [id number] [place] [id number]: Date:9435-11-21MU [address]WPMXXJXDAME[address] HUFFMAN () [address]OJ: 06/09/2018 Secondary NOT GIVENUNK [facility] Insurance:SELF PAY [facility] INSURANCEPolicy Repository Number: Effective Date:2018-06-09 06/05/2018 NICKIE A Primary NICKIE A [facility] [id number] TR Insurance:ANTHEMPolic SCHIEDOB: [facility] [address] [place] [address], y Number: [id number] [place] [id number]: Date:9225-69-28PV [address]MBBSTKODAMEON [address]FFMAN () [address]CZ: 06/05/2018 Secondary NOT GIVENUNK [facility] Insurance:SELF PAY [facility] INSURANCEPolicy Repository Number: Effective Date:2018-06-05 06/05/2018 NICKIE A Primary NICKIE A [facility] [id number] TR Insurance:ANTHEMPolic SCHIEDOB: [facility] [address] [place] [address], y Number: [id number] [place]ository [place] [id number]: Date:0628-26-60JL [address]UBPHCAMDAME[address] () [id number]: 06/05/2018 Secondary NOT GIVENUNK [facility] Insurance:SELF PAY [facility] INSURANCEPolicy Repository Number: Effective Date:2018-06-05 06/05/2018 NICKIE A Primary NICKIE A [facility] [id number] TR Insurance:ANTHEMPolic SCHIEDOB: [facility] [address] [place] [address], y Number: [id number] [place] [id number] [phone]: Date:2779-55-89WR [address]HHWBGKDDAMEON [address]FFMAN () 88759ZX: 06/05/2018 Secondary NOT GIVENUNK [facility] Insurance:SELF PAY Hospital INSURANCEPolicy Repository Number: Effective Date:2018-06-05 05/08/2018 NICKIE A Primary NICKIE A [facility] [id number] TR Insurance:ANTHEMPolic SCHIEDOB: [facility] [address] [place] [address], y Number: [id number] [place]ository [place] [id number] [phone]: Date:0155-14-92PE [address]UIADJZ, [place] () [address]EE: 05/08/2018 Secondary NOT GIVENUNK [facility] Insurance:SELF PAY [facility] INSURANCEPolicy Repository Number: Effective Date:2018-05-08 04/22/2018 NICKIE A Primary NICKIE A [facility] [id number] TR Insurance:ANTHEMPolic SCHIEDOB: [address], y Number: [id number] [place]ository [place] [id number] [phone]: Date:5265-61-56WY [address]KWZERMYDAMEON [address]FF[address] () 524[address]DL: 04/22/2018 Secondary NOT GIVENUNK [facility] Insurance:SELF PAY [facility] INSURANCEPolicy Repository Number: Effective Date:2018-04-06 04/22/2018 NICKIE A Primary NICKIE A [place] [facility] [id number] TR Insurance:ANTHEMPolic SCHIEDOB: [address], y Number: [id number] [place]ository [place] [id number] [phone]: Date:0194-33-83RD [address]YHBKKYG, [place] () [address]HN: 04/22/2018 Secondary NOT GIVENUNK [facility] Insurance:SELF PAY Hospital INSURANCEPolicy Repository Number: Effective Date:2018-04-06 04/15/2018 NICKIE A Primary NICKIE A [place] [facility] [id number] TR Insurance:ANTHEMPolic SCHIEDOB: Hospital [address] [place] [address], y Number: [id number] [place]ository [place] [id number] [phone]: Date:3831-83-36UN [address]ZBTSMYPDAME[address]FF[address] () [address]29[address]GR: 04/15/2018 Secondary NOT GIVENUNK [facility] Insurance:SELF PAY [facility] INSURANCEPolicy Repository Number: Effective Date:2018-03-24 03/18/2018 NICKIE Teague Primary NICKIE [place] [facility] [id number] TR Insurance:ANTHEMPolic SCHIEDOB: Hospital [address] [place] [address], y Number: [id number] [place]ository [place] [id number]: Date:7736-21-76UG [address] [place] [address] [place] () 564[address]KG: 03/18/2018 Secondary NOT GIVENUNK [facility] Insurance:SELF PAY Hospital INSURANCEPolicy Repository Number: Effective Date:2018-03-18 02/09/2018 NICKIE MURILLOONY Primary NICKIE [place] [facility] [id number] TR Insurance:ANTHEMPolic SCHIEDOB: Hospital [address] [place] [address], y Number: [id number] [place]ository [place] [id number] [phone]: Date:8790-33-57MX [address] [place] [address] [place] () [address]EO: 02/09/2018 Secondary NOT GIVENUNK [facility] Insurance:SELF PAY Hospital INSURANCEPolicy Repository Number: Effective Date:2018-02-09 02/09/2018 NICKIE DUFF Primary NICKIE [place] [facility] [id number] TR Insurance:ANTHEMPolic SCHIEDOB: [address], y Number: [id number] [place]ository [place] [id number] [phone]: Date:0838-06-09RF [address]ZAGAHYQ, [place] () [address]WS: 02/09/2018 Secondary NOT GIVENUNK [facility] Insurance:SELF PAY Hospital INSURANCEPolicy Repository Number: Effective Date:2018-02-02 12/17/2017 NICKIE DUFF Primary NICKIE [place] [facility] [id number] TR Insurance:ANTHEMPolic SCHIEDOB: [address], y Number: [id number] [place]ository [place] [id number] [phone]: Date:8037-41-10YA [address]KCQFMYQ, [place] () [address]GD: 12/17/2017 Secondary NOT GIVENJAYNA [facility] Insurance:SELF PAY Hospital INSURANCEPolicy Repository Number: Effective Date:2017-10-25
== END ==
PROVIDERS: Family Provider Family Medicine; PCP Family Medicine; Referring Provider Otolaryngology; Visit Provider Otolaryngology
DX: E89.0 Postprocedural hypothyroidism (principal)
CPT/HCPCS: 36415; 84443

== ENCOUNTER 2018-11-10 23:11 | Emergency (ER) | payer BC, SELFPAY ==
[2018-11-10 23:13] VITALS: BP 164/102; PULSE 84; RESP 16; TEMP 36; O2SAT 100; BMI 27.3
--- NOTE | 2018-11-10 23:27 | EKG12_ITS ---
Test Reason : Blood Pressure : / mmHG Vent. Rate : 083 BPM Atrial Rate : 083 BPM P-R Int : 138 ms QRS Dur : 084 ms QT Int : 376 ms P-R-T Axes : 023 -29 -06 degrees QTc Int : 441 ms Normal sinus rhythm Minimal voltage criteria for LVH, may be normal variant Nonspecific ST abnormality Abnormal ECG Confirmed by JACKIE RAMOS, TEGAN ([id number]), online content editor VICENTE KRISHNAN ([id number]) on 11/12/2018 2:04:36 PM Referred By: Andrew Rodriguez Confirmed By:TEGAN MEJIA MD
[2018-11-10 23:35] VITALS: BP 147/100; PULSE 90; RESP 18; TEMP 36.5; O2SAT 96; O2SAT 98
[2018-11-10] MEDS: LORazepam 2 MG/ML Syringe 1 MG IV (23:52)
[2018-11-10] MEDS: 0.9% Normal Saline 1,000 ML 1000 ML IV (23:52)
[2018-11-11 00:09] LABS: Absolute Neutrophil Count 6.8 X10^3/uL (2.0-7.7); Basophil# 0.05 X10^3/uL; Basophil% 0.5 % (0-1); Eosinophil# 0.42 X10^3/uL; Hematocrit 43.9 % (40-54); Hemoglobin 14.8 g/dl (13.0-16.5); Lymphocyte % 19.8 % (19-41); Mean Corp Hgb Conc 33.7 g/gl (32-36); Mean Corpuscular Hgb 29.2 pg (27.0-32.0); Mean Corpuscular Volume 86.8 fL (80-94); Mean Platelet Vol. 9.3 fl (6.2-12.0); Monocyte# 1.22 X10^3/uL; Monocyte% 11.5 % (0-10); Neutrophil # 6.78 X10^3/uL (2.7-7.7); Neutrophil % 63.9 % (47-70); Platelet Count 299 K/mm3 (150-450); RBC Distribution Width CV 12.8 % (11.6-14.6); RBC Distribution Width SD 39.9 fl (35.1-43.9); Red Blood Count 5.06 M/mm3 (4.6-6.2); White Blood Count 10.6 K/mm3 (4.4-11.0)
[2018-11-11 00:10] LABS: POSITIVE COUNT NO; POSITIVE DIFFERENTIAL NO; POSITIVE MORPHOLOGY NO
[2018-11-11 00:19] LABS: D-Dimer Quantitative (DVT/PE) 0.52 FEU/ug/m (0.27-0.49)
--- NOTE | 2018-11-11 00:19 | ED.RN ---
CRITICAL LAB VALUE RECEIVED FROM LAB. D-DIMER 0.52. DR ROMANO NOTIFIED.
--- NOTE | 2018-11-11 00:21 | CT_ITS ---
STUDY: CT ABDOMEN AND PELVIS WITH CONTRAST REASON FOR EXAM: Male, 53 years old. Chest tightness, bloating since recent neck tumor removal. RADIATION DOSAGE (If Supplied By Facility): CTDIvol = ( 12.25 ) mGy, DLP = ( 1186.57 ) mGycm TECHNIQUE: Transaxial images were obtained from the dome of the diaphragm to the symphysis pubis without oral contrast. 75ML ml of Isovue 370 contrast was administered. Sagittal and coronal images were reconstructed. Individualized dose optimization techniques were used for this CT. COMPARISON: July 13, 2018. FINDINGS: The visualized lung bases are unremarkable. The visualized portions of the heart are within normal limits. Normal liver. Normal gallbladder and extrahepatic biliary system. Normal spleen. Normal pancreas. Normal bilateral adrenal glands. Normal right kidney. Normal left kidney. Normal visualized stomach. Normal small intestine. Minimal sigmoid diverticulosis. The appendix is visualized and appears normal. Normal abdominal aorta. Normal inferior vena cava. Normal retroperitoneum. No intra-abdominal free air. Normal urinary bladder. Borderline prostate gland enlargement. Normal abdominal wall. Multilevel mild degenerative changes of the lumbar spine. CT/Abdomen/Pelvis W IV Cont ONLY IMPRESSION: No acute findings in the abdomen or pelvis. No evidence of bowel obstruction. Normal appendix. No significant change since the prior study. Electronically Signed: Hernesto Martinez MD at 2:37 EST , Service support ,
--- NOTE | 2018-11-11 00:21 | CT_ITS ---
STUDY: CTA CHEST REASON FOR EXAM: Male, 53 years old. Chest tightness, shortness of breath, elevated d-dimer. Since removal of neck tumor. RADIATION DOSAGE (If Supplied By Facility): CTDIvol = ( 12.25 ) mGy, DLP = ( 1186.57 ) mGycm TECHNIQUE: The examination was performed with the intravenous administration of 75ML ml of Isovue 370 contrast material. Post-processing of the angiographic images was performed, with multiplanar reformation and 3D reconstruction. Individualized dose optimization techniques were used for this CT. COMPARISON: September 27, 2018. CT neck September 27, 2018. FINDINGS: Normal enhancement of the main pulmonary artery and right and left pulmonary arteries. Normal enhancement of the bilateral peripheral pulmonary arteries. There is no demonstrated pulmonary embolism. Normal thoracic aorta and visualized great vessels. Postoperative changes, with subcutaneous air, compatible with recent removal of a mass anterior to the proximal right common carotid artery. There is no demonstrated aortic dissection. Normal heart and pericardium. Mediastinal lymphadenopathy AP window measuring 1.2 x 0.9 cm, posterior to the gerri measuring 1.0 x 1.0 cm and right subcarinal measuring 1.6 x 1.2 cm. Additional mediastinal lymph nodes measuring less than 1 cm in greatest dimension. Several left nodes were noted on the recent prior study. Normal hilar regions. Normal visualized trachea and bronchi. The lungs are well expanded. No focal infiltrates or effusions. Normal chest wall structures. Degenerative changes of the mid and lower thoracic spine. Normal visualized upper abdomen. CT/CTA Chest W/WO Contrast IMPRESSION: No pulmonary embolus or thoracic aortic dissection. Mediastinal lymphadenopathy. Postoperative changes of recent right neck mass. Electronically Signed: Hernesto Martinez MD at 2:17 EST , Service support ,
[2018-11-11 00:26] LABS: ALB/GLOB Ratio 1.1 RATIO (0.9-2.4); AST(SGOT) 47 U/L (15-37); Alanine Aminotransfer ALT/SGPT 50 U/L (16-61); Alkaline Phosphatase 79 U/L (45-117); Anion Gap 9 (5-15); BUN 18 mg/dL (7-18); BUN/Creat Ratio 18.3 RATIO (10-20); Calcium,Total 9.2 mg/dL (8.5-10.1); Chloride 103 mmol/L (98-107); Creatinine, Serum 0.99 mg/dL (0.70-1.30); EST Glomerular Filtration Rate 85 mL/min (>60); Est Glom Filt Rate - Afr Amer 103 mL/min (>60); Estimated Creatinine Clearance 82.53 ml/min; Globulin 3.7 g/dL (2.2-4.2); Glucose 104 mg/dL (74-106); Lipase 97 U/L (73-393); Potassium 3.2 mmol/L (3.5-5.1); Protein, Total 7.7 g/dL (6.4-8.2); Sodium Level 139 mmol/L (136-145)
[2018-11-11 00:41] VITALS: BP 142/90; PULSE 76; RESP 18; TEMP 36.5; O2SAT 96
[2018-11-11 01:23] VITALS: BP 149/96; PULSE 82; RESP 20; O2SAT 96
--- NOTE | 2018-11-11 02:44 | ED.VISSUMM ---
- ER Visit Summary Date of Service: 11/11/18 Chief Complaint: [Shortness of breath and abdominal bloating] History of Present Illness: The patient is a 53 M [presents the emergency department complaint of shortness of breath that started today about 2 hours prior to coming in. Patient states that he is got pressure and distention in his abdomen that kind of pushes up into his chest causing him feel short of breath. The discomfort is worse with sitting. 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 Patient had a small bowel movement yesterday and he has had a small bowel movement today. Patient has not been passing much gas. Patient has history of goiter. Patient denies any fevers. His did give him some Gas-X at home but did not seem to improve his symptoms. Patient last ate approximately noon and has not eaten since then.] Physical Examination: [HEENT-PERRLA, EOMI. Cranial nerves II through XII grossly intact. TMs clear. Mucous membranes moist. No adenopathy. Cardiovascular-regular rate and rhythm without murmur or ectopy Lungs-clear to auscultation, chest wall stable without crepitus or subcu emphysema Abdomen-normoactive bowel sounds, soft. Patient has some mild distention. There is no rebound, rigidity, or perineal signs. Patient does have some mild diffuse tenderness. Extremities-intact ?4, normal range of motion, normal pulses, atraumatic] Test Results: [EKG obtained arrival shows sinus rhythm with a ventricular rate of 83 bpm with some nonspecific ST changes. Troponin was less than 0.015. CBC with differential showed a white count of 10.6, hemoglobin 14.8, hematocrit 44, placed 299. Chemistries unremarkable other than a mildly depressed potassium at 3.2 for which I did give him 40 mEq of potassium chloride p.o. D-dimer was elevated at 0.[address] of the chest was obtained which showed no evidence of PE. Patient did have some mediastinal adenopathy. CT scan of the abdomen and pelvis was normal] Emergency Department Course and Treatment: [Patient initially on arrival did receive some Ativan 1 mg IV. Patient seems somewhat anxious and he did have a slight tremor and felt jittery. On repeat evaluation patient's abdominal bloating and discomforts mostly resolved and he denies feeling short of breath currently states that his symptoms essentially have resolved.] Treatment Plan: [Vision to follow-up with his primary care physician and surgeon within next 3-5 days.] Patient to continue with anti-gas medicine as needed. Disposition: [Discharged home in stable condition] Impression: [Dyspnea secondary to abdominal bloating and gas] This note was generated with [employer] dictation software. It may contain incorrect words, spelling, and punctuation that were not noted in review of the chart prior to signing ED Disposition - Plan for ED Patient: Chief Complaint: Shortness of Breath Referrals: Evelia Bains MD [Primary Care Provider] -
--- NOTE | 2018-11-11 02:48 | ED.DEP ---
ED Disposition - Plan for ED Patient: Chief Complaint: Shortness of Breath Instructions: ED Dyspnea Shortness of Breath, Abdominal Pain Referrals: Evelia Bains MD [Primary Care Provider] - 3-5 Days
[2018-11-11 03:02] VITALS: BP 159/98; PULSE 101; RESP 20; O2SAT 97
== END 2018-11-11 03:02 | disposition home or self-care (01) ==
LOC: ED 11-11 00:19
PROVIDERS: Emergency Provider Emergency Medicine; Family Provider Family Medicine; PCP Family Medicine
DX: R06.09 Other forms of dyspnea (principal); R14.0 Abdominal distension (gaseous); R07.89 Other chest pain; E87.6 Hypokalemia; R74.8 Abnormal levels of other serum enzymes; Z79.899 Other long term (current) drug therapy; Z98.890 Other specified postprocedural states
CPT/HCPCS: 71275; 74177; 80053; 83690; 84484; 85025; 85379; 93005; 96361; 96374; 99285; J7030; Q9967

== ENCOUNTER → 2018-12-16 10:46 | Outpatient (CLI) | payer OTHER, SELFPAY ==
[2018-12-16 11:39] LABS: Absolute Lymphocyte Count 1.56 X10^3/ul (0.83-4.51); Absolute Neutrophil Count 9.2 X10^3/uL (2.0-7.7); Basophil# 0.05 X10^3/uL; Basophil% 0.4 % (0-1); Eosinophil# 0.37 X10^3/uL; Hematocrit 47.6 % (40-54); Hemoglobin 15.5 g/dl (13.0-16.5); Lymphocyte # 1.56 X10^3/ul (4.0); Lymphocyte % 12.6 % (19-41); Mean Corp Hgb Conc 32.6 g/gl (32-36); Mean Platelet Vol. 9.6 fl (6.2-12.0); Monocyte# 1.17 X10^3/uL; Monocyte% 9.4 % (0-10); Neutrophil # 9.22 X10^3/uL (2.7-7.7); Neutrophil % 74.4 % (47-70); Platelet Count 265 K/mm3 (150-450); RBC Distribution Width CV 13.4 % (11.6-14.6); RBC Distribution Width SD 43.3 fl (35.1-43.9); Red Blood Count 5.35 M/mm3 (4.6-6.2); White Blood Count 12.4 K/mm3 (4.4-11.0)
[2018-12-16 11:44] LABS: POSITIVE COUNT NO; POSITIVE DIFFERENTIAL NO; POSITIVE MORPHOLOGY NO
[2018-12-16 12:26] LABS: AST(SGOT) 40 U/L (15-37); Alanine Aminotransfer ALT/SGPT 49 U/L (16-61); Albumin, Serum 4.1 g/dL (3.2-5.0); Alkaline Phosphatase 97 U/L (45-117); Bilirubin, Direct 0.11 mg/dL (0.00-0.30); Creatinine, Serum 1.06 mg/dL (0.70-1.30); EST Glomerular Filtration Rate 78 mL/min (>60); Est Glom Filt Rate - Afr Amer 95 mL/min (>60); Globulin 3.5 g/dL (2.2-4.2); Protein, Total 7.6 g/dL (6.4-8.2); Thyroid Stim Hormone (TSH) 4.47 uIU/mL (0.358-3.74)
== END ==
PROVIDERS: Family Provider Family Medicine; PCP Family Medicine; Referring Provider Internal Medicine Rheumatology; Visit Provider Internal Medicine Rheumatology
DX: M06.4 Inflammatory polyarthropathy (principal); E89.0 Postprocedural hypothyroidism; Z79.899 Other long term (current) drug therapy
CPT/HCPCS: 36415; 80076; 82565; 84443; 85025

== ENCOUNTER → 2019-02-28 12:47 | Outpatient (CLI) | payer OTHER, SELFPAY ==
[2019-01-11 09:13] VITALS: BMI 27.6
[2019-02-28 10:27] VITALS: BMI 27.6
--- NOTE | 2019-03-01 13:24 | PFT ---
INTRODUCTION: The patient is a 53-year-old male that presents for pulmonary function studies secondary to a diagnosis of shortness of breath. Respiratory therapy reports good patient effort. Bronchodilators were used during testing. INTERPRETATION: Forced expiration spirometry demonstrates no evidence of a large airways obstructive ventilatory defect. There was no significant response to aerosolized bronchodilators. Spirograms are of good quality and plateau normally. Body plethysmography was performed and reveals lung volumes to be within normal limits. Diffusing capacity by single breath CO is within normal limits. IMPRESSION: Normal pulmonary function studies.
== END ==
PROVIDERS: Family Provider Family Medicine; PCP Family Medicine; Referring Provider Internal Medicine Critical Care Medicine; Visit Provider Internal Medicine Critical Care Medicine
DX: R06.02 Shortness of breath (principal)
CPT/HCPCS: 94060; 94726; 94729

== ENCOUNTER → 2019-03-02 12:10 | Outpatient (CLI) | payer OTHER, SELFPAY ==
[2019-01-11 09:13] VITALS: BMI 27.6
[2019-03-02 12:30] VITALS: PULSE 106; PULSE 108; PULSE 109; PULSE 110; PULSE 112; PULSE 96; PULSE 97; O2SAT 95; O2SAT 96; O2SAT 97; O2SAT 98
--- NOTE | 2019-03-03 11:18 | PCM.PSN.6M ---
PSN 6 Minute Walk Test - 6 Minute Walk Test 6 Minute Walk Test: 6 Minute Walk Test PSN:6-Minute Walk Test Start: 03/02/19 12:38 Freq: Status: Active Protocol: RESP.6MINW Document 03/02/19 12:30 JLA (Rec: 03/02/19 12:42 JLA [id number]) 6 Minute Walk Test Date Performed 03/02/19 Time Performed 12:30 Height 5 ft 7 in Weight: 180 lb Weight in Pounds 180.[address]: Dennis Crandall Assistive device used: None Pre-test Oxygen Delivery Method Room Air Pulse Ox (%) 97 Pulse Rate (60-100 beats/min) 97 Dyspnea Alessandro Scale (0-10) 0 Exertion Alessandro Scale (6-20) 6 1st minute Oxygen Delivery Method Room Air Pulse Ox (%) 97 Pulse Rate (60-100 beats/min) 106 H 2nd minute Oxygen Delivery Method Room Air Pulse Ox (%) 95 Pulse Rate (60-100 beats/min) 109 H 3rd minute Oxygen Delivery Method Room Air Pulse Ox (%) 97 Pulse Rate (60-100 beats/min) 110 H 4th minute Oxygen Delivery Method Room Air Pulse Ox (%) 96 Pulse Rate (60-100 beats/min) 109 H 5th minute Oxygen Delivery Method Room Air Pulse Ox (%) 96 Pulse Rate (60-100 beats/min) 108 H 6th minute Oxygen Delivery Method Room Air Pulse Ox (%) 96 Pulse Rate (60-100 beats/min) 112 H Dyspnea Alessandro Scale (0-10) 0 Exertion Alessandro Scale (6-20) 11 Post-test Oxygen Delivery Method Room Air Pulse Ox (%) 98 Pulse Rate (60-100 beats/min) 96 Full Laps Walked 22 Partial Lap, Number of Tiles Walked 0 Total Distance Walked (ft) 1298 - Interpretation Interpretation: The patient ambulated 1298 feet over the course of 6 minutes beginning on room air without assistive devices or breaks. Pretesting oxygen saturation was noted to be 97% on room air. With ambulation, the sowmya oxygen saturation was 95%. There was no significant exertional oxygen desaturation. - Recommendations Recommendations: There is no indication for the use of supplemental oxygen at this time.
== END ==
PROVIDERS: Family Provider Family Medicine; PCP Family Medicine; Referring Provider Internal Medicine Critical Care Medicine; Visit Provider Internal Medicine Critical Care Medicine
DX: R06.02 Shortness of breath (principal)
CPT/HCPCS: 94618

== ENCOUNTER → 2019-03-04 10:05 | Outpatient (CLI) | payer OTHER, SELFPAY ==
[2019-02-28 10:27] VITALS: BMI 27.6
[2019-03-04 10:43] LABS: Absolute Lymphocyte Count 2.36 X10^3/ul (0.83-4.51); Absolute Neutrophil Count 5.9 X10^3/uL (2.0-7.7); Basophil# 0.08 X10^3/uL; Basophil% 0.8 % (0-1); Eosinophil# 0.41 X10^3/uL; Hematocrit 47.1 % (40-54); Lymphocyte # 2.36 X10^3/ul (4.0); Lymphocyte % 23.3 % (19-41); Mean Corpuscular Hgb 29.1 pg (27.0-32.0); Mean Corpuscular Volume 85.6 fL (80-94); Mean Platelet Vol. 9.7 fl (6.2-12.0); Monocyte# 1.37 X10^3/uL; Monocyte% 13.5 % (0-10); Neutrophil # 5.87 X10^3/uL (2.7-7.7); Platelet Count 271 K/mm3 (150-450); RBC Distribution Width SD 40.8 fl (35.1-43.9); White Blood Count 10.1 K/mm3 (4.4-11.0)
[2019-03-04 10:44] LABS: POSITIVE COUNT NO; POSITIVE DIFFERENTIAL NO; POSITIVE MORPHOLOGY NO
[2019-03-04 11:30] LABS: AST(SGOT) 37 U/L (15-37); Alanine Aminotransfer ALT/SGPT 38 U/L (16-61); Albumin, Serum 4.2 g/dL (3.2-5.0); Alkaline Phosphatase 77 U/L (45-117); Bilirubin, Direct 0.12 mg/dL (0.00-0.30); Creatinine, Serum 1.38 mg/dL (0.70-1.30); EST Glomerular Filtration Rate 58 mL/min (>60); Est Glom Filt Rate - Afr Amer 70 mL/min (>60); Globulin 3.6 g/dL (2.2-4.2); Protein, Total 7.8 g/dL (6.4-8.2)
== END ==
PROVIDERS: Family Provider Family Medicine; PCP Family Medicine; Referring Provider Family Medicine; Visit Provider Family Medicine
DX: M06.4 Inflammatory polyarthropathy (principal); E03.2 Hypothyroidism due to medicaments and other exogenous substances; Z79.899 Other long term (current) drug therapy
CPT/HCPCS: 36415; 80076; 82565; 84443; 85025

== ENCOUNTER → 2019-04-20 11:24 | Outpatient (CLI) | payer OTHER, SELFPAY ==
[2019-04-20 11:24] VITALS: BMI 27.6
[2019-04-20 11:43] LABS: Absolute Lymphocyte Count 2.04 X10^3/ul (0.83-4.51); Absolute Neutrophil Count 6.4 X10^3/uL (2.0-7.7); Basophil# 0.06 X10^3/uL; Basophil% 0.6 % (0-1); Eosinophil# 0.28 X10^3/uL; Eosinophils% 2.8 % (0-5); Hematocrit 45.3 % (40-54); Hemoglobin 15.3 g/dl (13.0-16.5); Lymphocyte # 2.04 X10^3/ul (4.0); Mean Corp Hgb Conc 33.8 g/gl (32-36); Mean Corpuscular Hgb 28.6 pg (27.0-32.0); Mean Corpuscular Volume 84.7 fL (80-94); Mean Platelet Vol. 9.7 fl (6.2-12.0); Monocyte# 1.36 X10^3/uL; Monocyte% 13.4 % (0-10); Neutrophil # 6.37 X10^3/uL (2.7-7.7); Neutrophil % 62.5 % (47-70); Platelet Count 305 K/mm3 (150-450); RBC Distribution Width CV 13.9 % (11.6-14.6); RBC Distribution Width SD 42.6 fl (35.1-43.9); Red Blood Count 5.35 M/mm3 (4.6-6.2); White Blood Count 10.2 K/mm3 (4.4-11.0)
[2019-04-20 11:45] LABS: POSITIVE COUNT NO; POSITIVE DIFFERENTIAL NO; POSITIVE MORPHOLOGY NO
[2019-04-20 12:06] LABS: AST(SGOT) 41 U/L (15-37); Alanine Aminotransfer ALT/SGPT 43 U/L (16-61); Albumin, Serum 3.8 g/dL (3.2-5.0); Alkaline Phosphatase 74 U/L (45-117); Bilirubin, Direct 0.11 mg/dL (0.00-0.30); Creatinine, Serum 1.17 mg/dL (0.70-1.30); EST Glomerular Filtration Rate 70 mL/min (>60); Est Glom Filt Rate - Afr Amer 84 mL/min (>60); Globulin 3.9 g/dL (2.2-4.2); Protein, Total 7.7 g/dL (6.4-8.2)
== END ==
PROVIDERS: Family Provider Family Medicine; PCP Family Medicine; Referring Provider Internal Medicine Rheumatology; Visit Provider Internal Medicine Rheumatology
DX: M06.4 Inflammatory polyarthropathy (principal); Z79.899 Other long term (current) drug therapy
CPT/HCPCS: 36415; 80076; 82565; 85025

== ENCOUNTER 2019-04-25 11:32 | Emergency (ER) | payer BC, SELFPAY ==
[2019-04-20 11:24] VITALS: BMI 27.6
[2019-04-25 11:34] VITALS: BP 143/80; PULSE 88; RESP 16; TEMP 36.7; O2SAT 97; BMI 28.4
--- NOTE | 2019-04-25 12:16 | RAD_ITS ---
STUDY: X-RAY - RIGHT HAND REASON FOR EXAM: Male, 53 years old. Injury to the fourth digit. TECHNIQUE: 3 view(s) of the hand. COMPARISON: None. FINDINGS: Normal radiocarpal articulation. Normal distal radioulnar joint. Normal visualized carpal bones. Normal carpal articulations Normal carpometacarpal articulation of the thumb. Normal second through fifth carpometacarpal joints. Normal metacarpi. Normal metacarpophalangeal joint of the thumb. Normal interphalangeal joint of the thumb. Normal proximal and distal phalanges of the thumb. Normal metacarpophalangeal joints of the second through fifth fingers. Flexion deformity at the proximal interphalangeal joint of the fourth digit. Normal phalanges of the second through fifth fingers. Soft tissue swelling. RAD/Hand Min 3 Views IMPRESSION: Flexion deformity at the proximal interphalangeal joint of the fourth digit. Soft tissue swelling. Electronically Signed: Shaan Reese, at 12:48 EDT , Service support ,
--- NOTE | 2019-04-25 13:31 | RAD_ITS ---
STUDY: X-RAY - RIGHT HAND, ATTENTION FOURTH FINGER REASON FOR EXAM: Male, 53 years old. Post reduction examination. TECHNIQUE: 3 view(s) of the finger were obtained. COMPARISON: Comparison is made with prior study done earlier today. FINDINGS: Normal metacarpal head. Normal metacarpophalangeal joint. Normal proximal phalanx. Normal middle phalanx. Normal distal phalanx. Satisfactory reduction of the proximal interphalangeal joint of the fourth digit. Normal distal interphalangeal joint. RAD/Finger(s) Min 2 Views IMPRESSION: Satisfactory reduction. Electronically Signed: Shaan Reese, at 14:07 EDT , Service support ,
--- NOTE | 2019-04-25 13:53 | ED.VISSUMM ---
- ER Visit Summary Date of Service: 04/25/19 Chief Complaint: Right fourth finger injury History of Present Illness: The patient is a 53 M who hit his right hand into the ground trying to catch his dog. He injured his right fourth finger. It is held in flexion he is unable to straighten it. He is right-hand dominant. Physical Examination: Vital signs unremarkable. Right upper extremity examination reveals right fourth finger to be tender and is held in flexion at the PIP joint. He has normal cap refill distally. There is no tenderness over the metacarpals. Test Results: Right hand x-rays reveal flexion deformity of the PIP along the right fourth finger. Emergency Department Course and Treatment: Digital block is performed. Finger was able to be reduced. Following reduction he is able to flex and extend. Repeat x-rays revealed no evidence of fracture per my review. AlumaFoam splint will be applied for comfort. Treatment Plan: [] Disposition: Discharge Impression: Right fourth finger PIP dislocation, reduced This note was generated with [employer] dictation software. It may contain incorrect words, spelling, and punctuation that were not noted in review of the chart prior to signing ED Disposition - Plan for ED Patient: Disposition: Home or Assisted Living Instructions: ED Dislocation Finger Redu Referrals: Evelia Bains MD [Primary Care Provider] - Jefry Ruvalcaba MD [STAFF PHYSICIAN] - As Needed
== END 2019-04-25 14:01 | disposition home or self-care (01) ==
PROVIDERS: Emergency Provider Emergency Medicine; Family Provider Family Medicine; PCP Family Medicine
DX: S63.284A Dislocation of proximal interphalangeal joint of right ring finger, initial encounter (principal); W22.8XXA Striking against or struck by other objects, initial encounter; Y93.9 Activity, unspecified; Y92.9 Unspecified place or not applicable; Y99.9 Unspecified external cause status; Z79.899 Other long term (current) drug therapy
CPT/HCPCS: 26770; 73130; 73140; 99282

== ENCOUNTER → 2019-07-02 09:40 | Outpatient (CLI) | payer BC, SELFPAY ==
[2019-06-02 13:28] VITALS: BMI 28.4
[2019-07-02 10:35] LABS: Absolute Lymphocyte Count 1.35 X10^3/uL (0.83-4.51); Absolute Neutrophil Count 6.2 X10^3/uL (2.0-7.7); Basophil# 0.06 X10^3/uL; Basophil% 0.7 % (0-1); Eosinophil# 0.06 X10^3/uL; Eosinophils% 0.7 % (0-5); Hematocrit 44.9 % (40-54); Hemoglobin 14.7 g/dL (13.0-16.5); Lymphocyte # 1.35 X10^3/ul (4.0); Mean Corp Hgb Conc 32.7 g/dL (32-36); Mean Corpuscular Hgb 29.3 pg (27.0-32.0); Mean Corpuscular Volume 89.6 fL (80-94); Mean Platelet Vol. 9.7 fl (6.2-12.0); Monocyte# 0.72 X10^3/uL; Monocyte% 8.5 % (0-10); NRBC Flagged by Analyzer 0 % (0-5); Neutrophil # 6.21 X10^3/uL (2.7-7.7); Neutrophil % 73.6 % (47-70); Platelet Count 296 K/mm3 (150-450); RBC Distribution Width CV 12.9 % (11.6-14.6); RBC Distribution Width SD 42.2 fl (35.1-43.9); Red Blood Count 5.01 M/mm3 (4.6-6.2); White Blood Count 8.4 K/mm3 (4.4-11.0)
[2019-07-02 11:15] LABS: AST(SGOT) 46 U/L (15-37); Alanine Aminotransfer ALT/SGPT 54 U/L (16-61); Albumin, Serum 3.6 g/dL (3.2-5.0); Alkaline Phosphatase 88 U/L (45-117); Bilirubin, Direct 0.09 mg/dL (0.00-0.30); Creatinine, Serum 1.07 mg/dL (0.70-1.30); EST Glomerular Filtration Rate 77 mL/min (>60); Est Glom Filt Rate - Afr Amer 93 mL/min (>60); Protein, Total 7.6 g/dL (6.4-8.2); Thyroid Stim Hormone (TSH) 2.36 uIU/mL (0.358-3.74)
== END ==
LOC: LAB.FUTURE 01-06 00:41 → LAB 06-13 13:26
PROVIDERS: Internal Medicine Rheumatology; Family Provider Family Medicine; PCP Family Medicine; Referring Provider Family Medicine; Visit Provider Family Medicine
DX: M06.4 Inflammatory polyarthropathy (principal); E03.2 Hypothyroidism due to medicaments and other exogenous substances; Z79.899 Other long term (current) drug therapy
CPT/HCPCS: 36415; 80076; 82565; 84443; 85025

== ENCOUNTER → 2019-10-01 10:49 | Outpatient (CLI) | payer BC, SELFPAY ==
[2019-06-02 13:28] VITALS: BMI 28.4
[2019-10-01 11:21] LABS: Absolute Lymphocyte Count 1.72 X10^3/uL (0.83-4.51); Basophil# 0.09 X10^3/uL; Basophil% 1.2 % (0-1); Eosinophil# 0.39 X10^3/uL; Eosinophils% 5.4 % (0-5); Hematocrit 45.8 % (40-54); Lymphocyte # 1.72 X10^3/ul (4.0); Lymphocyte % 23.8 % (19-41); Mean Corp Hgb Conc 32.8 g/dL (32-36); Mean Corpuscular Hgb 28.9 pg (27.0-32.0); Mean Corpuscular Volume 88.2 fL (80-94); Mean Platelet Vol. 9.6 fl (6.2-12.0); Monocyte# 1.02 X10^3/uL; Monocyte% 14.1 % (0-10); NRBC Flagged by Analyzer 0 % (0-5); Neutrophil # 3.97 X10^3/uL (2.7-7.7); Neutrophil % 54.9 % (47-70); Platelet Count 281 K/mm3 (150-450); RBC Distribution Width SD 42.2 fl (35.1-43.9); Red Blood Count 5.19 M/mm3 (4.6-6.2); White Blood Count 7.2 K/mm3 (4.4-11.0)
[2019-10-01 11:45] LABS: AST(SGOT) 48 U/L (15-37); Alanine Aminotransfer ALT/SGPT 40 U/L (16-61); Albumin, Serum 3.6 g/dL (3.2-5.0); Alkaline Phosphatase 90 U/L (45-117); Bilirubin, Direct 0.12 mg/dL (0.00-0.30); Creatinine, Serum 1.11 mg/dL (0.70-1.30); EST Glomerular Filtration Rate 74 mL/min (>60); Est Glom Filt Rate - Afr Amer 89 mL/min (>60); Globulin 3.8 g/dL (2.2-4.2); Protein, Total 7.4 g/dL (6.4-8.2)
== END ==
PROVIDERS: Family Provider Family Medicine; PCP Family Medicine; Referring Provider Family Medicine; Visit Provider Family Medicine
DX: R42 Dizziness and giddiness (principal); M06.4 Inflammatory polyarthropathy; Z79.899 Other long term (current) drug therapy
CPT/HCPCS: 36415; 80076; 82565; 85025

== ENCOUNTER → 2020-01-14 11:09 | Outpatient (CLI) | payer BC, SELFPAY ==
[2019-12-12 13:25] VITALS: BMI 28.4
[2020-01-14 11:59] LABS: Absolute Lymphocyte Count 1.89 X10^3/uL (0.83-4.51); Absolute Neutrophil Count 4.9 X10^3/uL (2.0-7.7); Basophil# 0.09 X10^3/uL; Basophil% 1.1 % (0-1); Eosinophil# 0.37 X10^3/uL; Eosinophils% 4.5 % (0-5); Hematocrit 46.7 % (40-54); Lymphocyte # 1.89 X10^3/ul (4.0); Lymphocyte % 22.8 % (19-41); Mean Corp Hgb Conc 32.1 g/dL (32-36); Mean Corpuscular Hgb 27.8 pg (27.0-32.0); Mean Corpuscular Volume 86.5 fL (80-94); Mean Platelet Vol. 9.8 fl (6.2-12.0); Monocyte# 1.02 X10^3/uL; Monocyte% 12.3 % (0-10); NRBC Flagged by Analyzer 0 % (0-5); Neutrophil # 4.88 X10^3/uL (2.7-7.7); Neutrophil % 58.8 % (47-70); Platelet Count 300 K/mm3 (150-450); RBC Distribution Width CV 13.3 % (11.6-14.6); White Blood Count 8.3 K/mm3 (4.4-11.0)
[2020-01-14 12:10] LABS: AST(SGOT) 47 U/L (15-37); Alanine Aminotransfer ALT/SGPT 44 U/L (16-61); Albumin, Serum 3.8 g/dL (3.2-5.0); Alkaline Phosphatase 92 U/L (45-117); Bilirubin, Direct 0.14 mg/dL (0.00-0.30); Creatinine, Serum 1.09 mg/dL (0.70-1.30); EST Glomerular Filtration Rate 75 mL/min (>60); Est Glom Filt Rate - Afr Amer 91 mL/min (>60); Globulin 4.1 g/dL (2.2-4.2); Protein, Total 7.9 g/dL (6.4-8.2)
== END ==
PROVIDERS: PCP Family Medicine; Referring Provider Internal Medicine Rheumatology; Visit Provider Internal Medicine Rheumatology
DX: M06.4 Inflammatory polyarthropathy (principal); Z79.899 Other long term (current) drug therapy
CPT/HCPCS: 36415; 80076; 82565; 85025

== ENCOUNTER → 2020-01-27 13:59 | Outpatient (CLI) | payer BC, SELFPAY ==
[2019-12-12 13:25] VITALS: BMI 28.4
--- NOTE | 2020-01-27 14:00 | RAD_ITS ---
STUDY: X-RAY - RIGHT HAND REASON FOR EXAM: Male, 54 years old. BILATERAL CHRONIC PAIN IN HANDS TECHNIQUE: 3 view(s) of the hand. COMPARISON: None. FINDINGS: Normal radiocarpal articulation. Mild degenerative arthrosis of the distal radioulnar joint. Normal visualized carpal bones. Normal carpal articulations There is degenerative arthrosis of the carpometacarpal (CMC) articulation of the thumb. Normal second through fifth carpometacarpal joints. Normal metacarpi. Normal metacarpophalangeal joint of the thumb. Normal interphalangeal joint of the thumb. Normal proximal and distal phalanges of the thumb. There is degenerative arthrosis of the second and third metacarpophalangeal (MCP) joints. Normal proximal and distal interphalangeal joints of the second through fifth fingers. Normal phalanges of the second through fifth fingers. The soft tissue structures are unremarkable. RAD/Hand Min 3 Views IMPRESSION: Mild osteoarthrosis. No erosive arthropathy. Electronically Signed: Juan Carl MD ([place]) at 17:20 EST , Service support ,
--- NOTE | 2020-01-27 14:02 | RAD_ITS ---
STUDY: X-RAY - LEFT HAND REASON FOR EXAM: Male, 54 years old. BILATERAL CHRONIC PAIN IN HANDS TECHNIQUE: 3 view(s) of the hand. COMPARISON: None. FINDINGS: Normal radiocarpal articulation. Normal distal radioulnar joint. Old unhealed ulnar styloid fracture or accessory ossicle noted. Normal visualized carpal bones. Normal carpal articulations There is degenerative arthrosis of the carpometacarpal (CMC) articulation of the thumb. Normal second through fifth carpometacarpal joints. Normal metacarpi. Normal metacarpophalangeal joint of the thumb. Normal interphalangeal joint of the thumb. Normal proximal and distal phalanges of the thumb. There is mild degenerative narrowing and marginal spur formation of the second MCP joint. Normal proximal and distal interphalangeal joints of the second through fifth fingers. Normal phalanges of the second through fifth fingers. The soft tissue structures are unremarkable. RAD/Hand Min 3 Views IMPRESSION: No erosive arthropathy. Osteoarthrosis of the second MCP joint and first CMC joint. Electronically Signed: Juan Carl MD ([place]) at 17:19 EST , Service support ,
== END ==
PROVIDERS: PCP Family Medicine; Referring Provider Physician Assistant; Visit Provider Physician Assistant
DX: M79.641 Pain in right hand (principal); M79.642 Pain in left hand
CPT/HCPCS: 73130

== ENCOUNTER → 2020-03-14 09:39 | Outpatient (CLI) | payer BC, SELFPAY ==
[2020-01-27 15:39] VITALS: BMI 28.4
--- NOTE | 2020-03-14 13:10 | NEURO_ITS ---
NCS and/or EMG Patient Report Ordering Doctor: Ish Peña DATE OF SERVICE: 03/14/20 Clint Turcios is a 54-year-old male presents for electrodiagnostic testing upper limbs. He reports numbness and tingling in both hands radiating into the forearms. He has a history of carpal tunnel release, approximately 10 years ago . Electrodiagnostic findings median motor nerve demonstrates prolonged distal latency with normal amplitude and conduction velocity bilaterally. Ulnar motor response within normal limits median ulnar F waves are normal. Median sensory latency at the wrist is prolonged bilaterally. Median palmar latency prolonged bilaterally. Normal ulnar and radial sensory responses. On needle EMG, all muscles tested in the upper limb showed no evidence of denervation with normal motor unit action potentials. Electrodiagnostic impression: This is an abnormal study in the upper limbs 1. Electro diagnostic findings demonstrate bilateral median mononeuropathy. This is consistent with a mild recurrent bilateral carpal tunnel syndrome. If there are any further questions, please do not hesitate to contact me.
== END ==
PROVIDERS: PCP Family Medicine; Referring Provider Physician Assistant; Visit Provider Physician Assistant
DX: R20.2 Paresthesia of skin (principal); M79.601 Pain in right arm; M79.602 Pain in left arm
CPT/HCPCS: 95886; 95912

== ENCOUNTER → 2020-05-17 12:50 | Outpatient (CLI) | payer BC, SELFPAY ==
[2020-03-22 12:59] VITALS: BMI 28.4
[2020-05-17 13:29] LABS: Absolute Neutrophil Count 5.3 X10^3/uL (2.0-7.7); Basophil# 0.09 X10^3/uL; Eosinophil# 0.24 X10^3/uL; Eosinophils% 2.8 % (0-5); Hematocrit 46.6 % (40-54); Hemoglobin 15.3 g/dL (13.0-16.5); Lymphocyte % 21.8 % (19-41); Mean Corp Hgb Conc 32.8 g/dL (32-36); Mean Corpuscular Hgb 29.4 pg (27.0-32.0); Mean Corpuscular Volume 89.6 fL (80-94); Mean Platelet Vol. 9.4 fl (6.2-12.0); Monocyte% 13.8 % (0-10); NRBC Flagged by Analyzer 0 % (0-5); Neutrophil # 5.25 X10^3/uL (2.7-7.7); Neutrophil % 60.1 % (47-70); Platelet Count 301 K/mm3 (150-450); RBC Distribution Width CV 13.1 % (11.6-14.6); RBC Distribution Width SD 42.5 fl (35.1-43.9); White Blood Count 8.7 K/mm3 (4.4-11.0)
[2020-05-17 13:47] LABS: AST(SGOT) 46 U/L (15-37); Alanine Aminotransfer ALT/SGPT 37 U/L (16-61); Albumin, Serum 3.8 g/dL (3.2-5.0); Alkaline Phosphatase 94 U/L (45-117); Bilirubin, Direct 0.11 mg/dL (0.00-0.30); Creatinine, Serum 1.11 mg/dL (0.70-1.30); EST Glomerular Filtration Rate 74 mL/min (>60); Est Glom Filt Rate - Afr Amer 89 mL/min (>60); Globulin 3.9 g/dL (2.2-4.2); Protein, Total 7.7 g/dL (6.4-8.2)
== END ==
PROVIDERS: PCP Family Medicine; Referring Provider Internal Medicine Rheumatology; Visit Provider Internal Medicine Rheumatology
DX: M06.4 Inflammatory polyarthropathy (principal); Z79.899 Other long term (current) drug therapy
CPT/HCPCS: 36415; 80076; 82565; 85025

== ENCOUNTER → 2020-07-14 10:13 | Outpatient (CLI) | payer OTHER, SELFPAY ==
[2020-03-22 12:59] VITALS: BMI 28.4
[2020-07-14 11:51] LABS: Cholesterol 232 mg/dL (200); High Density Lipoprotein 46 mg/dL; Triglycerides 191 mg/dL; Very Low Density Lipoprotein 38 mg/dL (5-40)
== END ==
LOC: LAB.FUTURE 10:15 → LAB 10:18
PROVIDERS: PCP Family Medicine; Referring Provider Family Medicine; Visit Provider Family Medicine
DX: Z00.00 Encounter for general adult medical examination without abnormal findings (principal)
CPT/HCPCS: 36415; 80061

== ENCOUNTER → 2020-09-08 10:15 | Outpatient (CLI) | payer OTHER, SELFPAY ==
[2020-03-22 12:59] VITALS: BMI 28.4
[2020-09-08 10:49] LABS: Absolute Lymphocyte Count 2.05 X10^3/uL (0.83-4.51); Absolute Neutrophil Count 5.9 X10^3/uL (2.0-7.7); Basophil# 0.07 X10^3/uL; Basophil% 0.7 % (0-1); Eosinophil# 0.37 X10^3/uL; Eosinophils% 3.9 % (0-5); Hematocrit 44.8 % (40-54); Hemoglobin 14.4 g/dL (13.0-16.5); Lymphocyte # 2.05 X10^3/ul (4.0); Lymphocyte % 21.6 % (19-41); Mean Corp Hgb Conc 32.1 g/dL (32-36); Mean Corpuscular Hgb 29.2 pg (27.0-32.0); Mean Corpuscular Volume 90.9 fL (80-94); Mean Platelet Vol. 9.8 fl (6.2-12.0); Monocyte# 1.06 X10^3/uL; Monocyte% 11.2 % (0-10); NRBC Flagged by Analyzer 0 % (0-5); Neutrophil # 5.89 X10^3/uL (2.7-7.7); Neutrophil % 62.3 % (47-70); Platelet Count 326 K/mm3 (150-450); RBC Distribution Width SD 42.8 fl (35.1-43.9); Red Blood Count 4.93 M/mm3 (4.6-6.2); White Blood Count 9.5 K/mm3 (4.4-11.0)
[2020-09-08 11:22] LABS: AST(SGOT) 46 U/L (15-37); Alanine Aminotransfer ALT/SGPT 41 U/L (16-61); Albumin, Serum 3.6 g/dL (3.2-5.0); Alkaline Phosphatase 76 U/L (45-117); Bilirubin, Direct 0.13 mg/dL (0.00-0.30); Creatinine, Serum 1.06 mg/dL (0.70-1.30); EST Glomerular Filtration Rate 78 mL/min (>60); Est Glom Filt Rate - Afr Amer 94 mL/min (>60); Globulin 3.6 g/dL (2.2-4.2); Protein, Total 7.2 g/dL (6.4-8.2)
== END ==
PROVIDERS: PCP Family Medicine; Referring Provider Internal Medicine Rheumatology; Visit Provider Internal Medicine Rheumatology
DX: M06.4 Inflammatory polyarthropathy (principal); Z79.899 Other long term (current) drug therapy
CPT/HCPCS: 36415; 80076; 82565; 85025

== ENCOUNTER → 2020-09-14 15:01 | Outpatient (CLI) | payer OTHER, SELFPAY ==
[2020-03-22 12:59] VITALS: BMI 28.4
[2020-09-14 16:29] LABS: Erythrocyte Sedimentation Rate 14 mm/hr (0-20)
[2020-09-14 16:33] LABS: CRP 3.58 mg/L (0.0-3.0); Thyroid Stim Hormone (TSH) 2.86 uIU/mL (0.358-3.74)
== END ==
PROVIDERS: PCP Family Medicine; Referring Provider Family Medicine; Visit Provider Internal Medicine Rheumatology
DX: E03.2 Hypothyroidism due to medicaments and other exogenous substances (principal); M06.4 Inflammatory polyarthropathy
CPT/HCPCS: 36415; 84443; 85652; 86140

== ENCOUNTER → 2020-11-24 10:56 | Outpatient (CLI) | payer BC, SELFPAY ==
[2020-03-22 12:59] VITALS: BMI 28.4
[2020-11-24 11:42] LABS: Absolute Lymphocyte Count 1.78 X10^3/uL (0.83-4.51); Absolute Neutrophil Count 4.5 X10^3/uL (2.0-7.7); Basophil# 0.09 X10^3/uL; Basophil% 1.2 % (0-1); Eosinophil# 0.32 X10^3/uL; Eosinophils% 4.1 % (0-5); Hematocrit 47.8 % (40-54); Hemoglobin 15.6 g/dL (13.0-16.5); Lymphocyte # 1.78 X10^3/ul (4.0); Mean Corp Hgb Conc 32.6 g/dL (32-36); Mean Corpuscular Hgb 28.9 pg (27.0-32.0); Mean Corpuscular Volume 88.7 fL (80-94); Mean Platelet Vol. 9.8 fl (6.2-12.0); Monocyte# 1.08 X10^3/uL; Monocyte% 13.9 % (0-10); NRBC Flagged by Analyzer 0 % (0-5); Neutrophil # 4.45 X10^3/uL (2.7-7.7); Neutrophil % 57.4 % (47-70); Platelet Count 302 K/mm3 (150-450); Red Blood Count 5.39 M/mm3 (4.6-6.2); White Blood Count 7.8 K/mm3 (4.4-11.0)
[2020-11-24 12:27] LABS: AST(SGOT) 36 U/L (15-37); Alanine Aminotransfer ALT/SGPT 34 U/L (16-61); Alkaline Phosphatase 85 U/L (45-117); Bilirubin, Direct 0.11 mg/dL (0.00-0.30); Creatinine, Serum 0.95 mg/dL (0.70-1.30); EST Glomerular Filtration Rate 88 mL/min (>60); Est Glom Filt Rate - Afr Amer 107 mL/min (>60)
== END ==
PROVIDERS: PCP Family Medicine; Visit Provider Internal Medicine Rheumatology
DX: M06.4 Inflammatory polyarthropathy (principal); Z79.899 Other long term (current) drug therapy
CPT/HCPCS: 36415; 80076; 82565; 85025

== ENCOUNTER → 2021-03-01 10:20 | Outpatient (CLI) | payer OTHER, SELFPAY ==
[2020-03-22 12:59] VITALS: BMI 28.4
[2021-03-01 11:19] LABS: Absolute Lymphocyte Count 1.67 X10^3/uL (0.83-4.51); Absolute Neutrophil Count 4.7 X10^3/uL (2.0-7.7); Basophil% 1.3 % (0-1); Eosinophil# 0.36 X10^3/uL; Eosinophils% 4.6 % (0-5); Hemoglobin 15.6 g/dL (13.0-16.5); Lymphocyte # 1.67 X10^3/ul (4.0); Lymphocyte % 21.2 % (19-41); Mean Corp Hgb Conc 32.5 g/dL (32-36); Mean Corpuscular Hgb 28.8 pg (27.0-32.0); Mean Corpuscular Volume 88.7 fL (80-94); Mean Platelet Vol. 10.1 fl (6.2-12.0); Monocyte# 1.02 X10^3/uL; Monocyte% 12.9 % (0-10); NRBC Flagged by Analyzer 0 % (0-5); Neutrophil # 4.68 X10^3/uL (2.7-7.7); Neutrophil % 59.4 % (47-70); Platelet Count 286 K/mm3 (150-450); RBC Distribution Width SD 42.5 fl (35.1-43.9); Red Blood Count 5.41 M/mm3 (4.6-6.2); White Blood Count 7.9 K/mm3 (4.4-11.0)
[2021-03-01 11:47] LABS: AST(SGOT) 50 U/L (15-37); Alanine Aminotransfer ALT/SGPT 38 U/L (16-61); Alkaline Phosphatase 86 U/L (45-117); Bilirubin, Direct 0.16 mg/dL (0.00-0.30); Creatinine, Serum 1.14 mg/dL (0.70-1.30); EST Glomerular Filtration Rate 71 mL/min (>60); Est Glom Filt Rate - Afr Amer 86 mL/min (>60)
== END ==
PROVIDERS: PCP Family Medicine; Referring Provider Internal Medicine Rheumatology; Visit Provider Internal Medicine Rheumatology
DX: M06.4 Inflammatory polyarthropathy (principal); Z79.899 Other long term (current) drug therapy
CPT/HCPCS: 36415; 80076; 82565; 85025

== ENCOUNTER → 2021-05-29 15:19 | Outpatient (CLI) | payer OTHER, SELFPAY ==
[2020-03-22 12:59] VITALS: BMI 28.4
[2021-05-29 17:31] LABS: Absolute Lymphocyte Count 1.95 X10^3/uL (0.83-4.51); Absolute Neutrophil Count 8.5 X10^3/uL (2.0-7.7); Basophil# 0.07 X10^3/uL; Basophil% 0.6 % (0-1); Eosinophil# 0.18 X10^3/uL; Eosinophils% 1.5 % (0-5); Hematocrit 43.1 % (40-54); Hemoglobin 13.9 g/dL (13.0-16.5); Lymphocyte # 1.95 X10^3/ul (0.83-4.51); Lymphocyte % 16.1 % (19-41); Mean Corp Hgb Conc 32.3 g/dL (32-36); Mean Corpuscular Hgb 29.1 pg (27.0-32.0); Mean Corpuscular Volume 90.4 fL (80-94); Mean Platelet Vol. 10.4 fl (6.2-12.0); Monocyte# 1.39 X10^3/uL; Monocyte% 11.5 % (0-10); NRBC Flagged by Analyzer 0 % (0-5); Neutrophil # 8.46 X10^3/uL (2.7-7.7); Neutrophil % 69.6 % (47-70); Platelet Count 329 K/mm3 (150-450); RBC Distribution Width CV 12.5 % (11.6-14.6); RBC Distribution Width SD 41.7 fl (35.1-43.9); Red Blood Count 4.77 M/mm3 (4.6-6.2); White Blood Count 12.1 K/mm3 (4.4-11.0)
[2021-05-29 18:11] LABS: AST(SGOT) 36 U/L (15-37); Alanine Aminotransfer ALT/SGPT 32 U/L (16-61); Albumin, Serum 3.8 g/dL (3.2-5.0); Alkaline Phosphatase 85 U/L (45-117); Bilirubin, Direct 0.11 mg/dL (0.00-0.30); Creatinine, Serum 1.08 mg/dL (0.70-1.30); EST Glomerular Filtration Rate 76 mL/min (>60); Est Glom Filt Rate - Afr Amer 92 mL/min (>60); Globulin 3.9 g/dL (2.2-4.2); Protein, Total 7.7 g/dL (6.4-8.2)
== END ==
PROVIDERS: PCP Family Medicine; Referring Provider Internal Medicine Rheumatology; Visit Provider Internal Medicine Rheumatology
DX: M06.4 Inflammatory polyarthropathy (principal); Z79.899 Other long term (current) drug therapy
CPT/HCPCS: 36415; 80076; 82565; 85025

== ENCOUNTER → 2021-06-22 10:03 | Outpatient (CLI) | payer OTHER, SELFPAY ==
[2020-03-22 12:59] VITALS: BMI 28.4
[2021-06-22 10:50] LABS: Cholesterol 240 mg/dL (200); High Density Lipoprotein 60 mg/dL; Triglycerides 78 mg/dL; Very Low Density Lipoprotein 16 mg/dL (5-40)
== END ==
PROVIDERS: PCP Family Medicine; Referring Provider Family Medicine; Visit Provider Family Medicine
DX: Z00.00 Encounter for general adult medical examination without abnormal findings (principal); E78.5 Hyperlipidemia, unspecified
CPT/HCPCS: 36415; 80061

== ENCOUNTER 2021-09-02 10:37 | Outpatient (RCR) | payer OTHER, SELFPAY ==
--- NOTE | 2021-09-02 11:22 | RAD_ITS ---
STUDY: X-RAY - LUMBAR SPINE REASON FOR EXAM: Male, 56 years old. Back pain. No known injury. TECHNIQUE: 5 view(s) of the lumbar spine were obtained. COMPARISON: 03/18/2018. FINDINGS: Normal lumbar lordosis. There is no substantial scoliosis. There is a normal alignment of the vertebrae. Diffuse facet sclerosis. Intervertebral disc space narrowing in the lower thoracic and upper lumbar spine. Diffuse intervertebral disc space narrowing of the lumbar spine most marked at L2-3, L3-4 and L4-5 with osteophyte formation most marked at L4-5, unchanged. The soft tissue structures are unremarkable. RAD/L/S Spine Min 4 Views IMPRESSION: Stable moderate diffuse lumbar spondylosis. No acute abnormality. Electronically Signed: Anshul De La Torre MD at 13:43 EDT , Service support ,
[2021-09-02 11:38] LABS: Absolute Lymphocyte Count 1.59 X10^3/uL (0.83-4.51); Absolute Neutrophil Count 5.3 X10^3/uL (2.0-7.7); Basophil# 0.09 X10^3/uL; Basophil% 1.1 % (0-1); Eosinophil# 0.18 X10^3/uL; Eosinophils% 2.2 % (0-5); Hematocrit 45.2 % (40-54); Hemoglobin 14.8 g/dL (13.0-16.5); Lymphocyte # 1.59 X10^3/ul (0.83-4.51); Lymphocyte % 19.2 % (19-41); Mean Corp Hgb Conc 32.7 g/dL (32-36); Mean Corpuscular Hgb 29.2 pg (27.0-32.0); Mean Corpuscular Volume 89.2 fL (80-94); Mean Platelet Vol. 9.5 fl (6.2-12.0); Monocyte# 1.09 X10^3/uL; Monocyte% 13.1 % (0-10); NRBC Flagged by Analyzer 0 % (0-5); Neutrophil # 5.27 X10^3/uL (2.7-7.7); Neutrophil % 63.6 % (47-70); Platelet Count 292 K/mm3 (150-450); RBC Distribution Width CV 13.5 % (11.6-14.6); Red Blood Count 5.07 M/mm3 (4.6-6.2); White Blood Count 8.3 K/mm3 (4.4-11.0)
[2021-09-02 12:03] LABS: AST(SGOT) 34 U/L (15-37); Alanine Aminotransfer ALT/SGPT 32 U/L (16-61); Albumin, Serum 3.6 g/dL (3.2-5.0); Alkaline Phosphatase 90 U/L (45-117); Bilirubin, Direct 0.11 mg/dL (0.00-0.30); Creatinine, Serum 1.29 mg/dL (0.70-1.30); EST Glomerular Filtration Rate 62 mL/min (>60); Est Glom Filt Rate - Afr Amer 75 mL/min (>60); Globulin 4.2 g/dL (2.2-4.2); Protein, Total 7.8 g/dL (6.4-8.2)
[2021-09-02 12:20] LABS: Thyroid Stim Hormone (TSH) 3.72 uIU/mL (0.358-3.74)
== END 2021-09-22 18:00 | disposition home or self-care (01) ==
LOC: LAB 10:37
PROVIDERS: Internal Medicine Rheumatology; PCP Family Medicine; Referring Provider Family Medicine; Visit Provider Family Medicine
DX: M54.16 Radiculopathy, lumbar region (principal); E03.2 Hypothyroidism due to medicaments and other exogenous substances; Z79.899 Other long term (current) drug therapy
CPT/HCPCS: 36415; 72110; 80076; 82565; 84443; 85025

== ENCOUNTER 2021-09-17 14:42 | Emergency (ER) | payer OTHER, SELFPAY ==
[2021-09-17 14:42] VITALS: BP 160/108; PULSE 85; RESP 18; TEMP 36.2; O2SAT 97; BMI 26.9
--- NOTE | 2021-09-17 14:44 | RAD_ITS ---
STUDY: X-RAY - LEFT RADIUS AND ULNA REASON FOR EXAM: Male, 56 years old. Fall TECHNIQUE: 2 view(s) of the forearm. COMPARISON: None. FINDINGS: There is distal soft tissue swelling There is an acute nondisplaced fracture of the distal metaphysis of the radius. There is an old ulnar styloid fracture. RAD/Forearm 2 Views IMPRESSION: Acute nondisplaced fracture in the distal radius with soft tissue swelling Electronically Signed: Sunil Horan MD at 15:06 EDT , Service support ,
--- NOTE | 2021-09-17 14:44 | RAD_ITS ---
STUDY: X-RAY - LEFT ELBOW REASON FOR EXAM: Male, 56 years old. Pain after fall TECHNIQUE: 3 view(s) of the elbow. COMPARISON: None. FINDINGS: Normal visualized humerus, radius and ulna. There is degenerative arthrosis of the radiocapitellar and ulnotrochlear articulations. The soft tissue structures are unremarkable. RAD/Elbow min 3 Views IMPRESSION: Degenerative arthrosis Electronically Signed: Sunil Horan MD at 15:04 EDT , Service support ,
--- NOTE | 2021-09-17 14:45 | RAD_ITS ---
STUDY: X-RAY - LEFT WRIST REASON FOR EXAM: Male, 56 years old. Pain after fall TECHNIQUE: 3 view(s) of the wrist were obtained. COMPARISON: None. FINDINGS: There is an acute nondisplaced fracture in the distal metaphysis of the radius with soft tissue swelling. There is an old ununited ulnar styloid fracture.. Normal radiocarpal articulation. Normal distal radioulnar articulation. Normal carpal bones. Normal carpal articulations. There is severe degenerative arthrosis of the carpometacarpal articulation of the thumb with subluxation. Normal second through fifth carpometacarpal articulations. Normal visualized metacarpal bones. The soft tissue structures are unremarkable. RAD/Wrist min 3 Views IMPRESSION: Acute nondisplaced fracture of the distal radius with soft tissue swelling Old ununited ulnar styloid fracture Severe first CMC joint arthrosis with subluxation Electronically Signed: Sunil Horan MD at 15:05 EDT , Service support ,
--- NOTE | 2021-09-17 15:33 | EX.ED.GENINJ ---
HPI History of Present Illness Chief Complaint: Fall Informant: patient Narrative Narrative: [id number] male presents injury left upper extremity prior to arrival. Helping his brother move the trailer, when he came down axial load down on his forearm. Pain elbow and wrist. No history of fractures. No anticoagulation. History of osteoarthritis for which she is on Plaquenil and Celebrex and leflunomide which helps his symptoms. Denies rheumatoid or lupus history. No head injuries. No other injuries. Prior similar symptoms: No PFSH PFSH Medical History Arthritis Bone fracture Carpal tunnel syndrome Chronic back pain Goiter Hearing loss Hypertension Osteoarthritis Seasonal allergies SOB (shortness of breath) Home Medications meloxicam 15 mg PO DAILY 07/18/16 [History Last Taken 06/04/18] hydroxychloroquine 400 mg PO QHS 03/01/17 [History Last Taken 06/04/18] leflunomide 20 mg PO QHS 03/01/17 [History Last Taken 06/04/18] acetaminophen 650 mg PO Q4H PRN PRN tab 08/28/18 [Rx Last Taken Unknown] levothyroxine 150 mcg PO DAILY@0600 11/10/18 [History Last Taken Unknown] omeprazole 20 mg PO DAILY 11/10/18 [History Last Taken Unknown] ibuprofen 400 mg PO Q6 PRN 04/25/19 [History Last Taken Unknown] amoxicillin 875 mg-potassium clavulanate 125 mg tablet 1 tab PO BID #20 tab 12/12/19 [Rx Last Taken Unknown] prednisone 10 mg tablet See Rx Instructions PO .COMPLEX #31 tab 01/27/20 [Rx Last Taken Unknown] Allergy/AdvReac Type Severity Reaction Status Date / Time No Known Allergies Allergy Verified 09/17/21 15:10 Family History Father Myocardial infarction Hypertension CAD (coronary artery disease) PCI-Stent x 2 Unknown Arthritis High cholesterol Thyroid disorder Skin cancer Surgical History History of carpal tunnel release History of herniorrhaphy History of thyroidectomy Social History Smoking Status: Never smoker alcohol intake: never substance use type: does not use ROS ROS ED Constitutional Constitutional ED: Denies chills, fever(s) or sweats Eyes Eyes: Denies change in vision ENT ENT ED: Denies dysphagia or sore throat Cardiovascular Cardiovascular: Denies chest pain, leg edema, palpitations or racing heartbeat Respiratory/Chest Respiratory/Chest: Denies cough, dyspnea or dyspnea on exertion Gastrointestinal Gastrointestinal: Denies abdominal pain, diarrhea, nausea or vomiting Genitourinary Genitourinary ED: Denies dysuria, hematuria or urinary frequency Musculoskeletal Musculoskeletal: Reports arthralgias; Denies back pain, extremity pain or neck pain Integumentary Denies rash or wounds Neurologic Neurologic: Denies headache(s), paresthesias or weakness EXAM Physical Exam Const Vital Signs: 09/17/21 14:42 Temperature 97.1 F L Temperature Source Temporal Pulse Rate 85 Respiratory Rate 18 Blood Pressure 160/108 H Blood Pressure Mean 125 Pulse Ox 97 Oxygen Delivery Method Room Air Positive well nourished and well developed Constitutional Narrative: GCS 15. General Appearance ED: well developed and NAD HEENT Reports moist mucous membranes normocephalic and atraumatic Eyes PERRL, EOMs intact bilaterally and conjunctivae normal General Eye ED: Yes normal appearance of both eyes Neck no lymphadenopathy and supple General: Negative for tenderness Chest Wall Chest: Negative for tenderness Resp normal respiratory effort and normal air movement Effort and Inspection: symmetric chest movement; Negative for respiratory distress Cardio regular rate, regular rhythm and no murmurs Peripheral Pulses: pulses 2+ throughout GI normal to inspection, nondistended, normoactive bowel sounds and non-tender Palpation: Negative for guarding or rebound tenderness present Back/Spine no CVA tenderness and no thoracic nor lumbar tenderness Extremity Extremity Narrative: Right upper extremity: Full range of motion. Neuro vas intact distally. Left upper extremity: Full range of motion of the elbow, tender palpation distal radius with swelling. Skin intact. No hand tenderness. Neuro vas intact distally. General Extremety ED: Negative for edema or tenderness General Extremity: Negative for edema Neuro oriented x3 and no sensory deficits noted Sensorium / Orientation: awake and alert Skin no rashes or lesions noted and no wounds MDM MDM MDM Narrative Medical decision making narrative: Patient received x-rays left wrist forearm and elbow from triage. This was reviewed by myself and read by radiology noted is a nondisplaced distal radius fracture, there is an old ulnar styloid fracture. Patient declined any pain medicines. He is placed in a AP sugar tong splint. Sling provided. Ice was placed. He will continue to elevate. He is given follow-up with orthopedics as an outpatient. All questions were answered. Procedure note: Verbal consent. Nylon sleeve was placed up the arm, Kerlix dressing, 5 inch plaster sugar tong AP splint was placed. Sergio wrap to secure. Neurovascular intact post splint. Patient tolerated procedure well. Radiography Diagnostic Testing: Clinical Impression(s) from Imaging Studies Elbow X-Ray 09/17/21 14:44 IMPRESSION: Degenerative arthrosis Electronically Signed: Sunil Horan MD at 15:04 EDT , Service support , Forearm X-Ray 09/17/21 14:44 IMPRESSION: Acute nondisplaced fracture in the distal radius with soft tissue swelling Electronically Signed: Sunil Horan MD at 15:06 EDT , Service support , Wrist X-Ray 09/17/21 14:45 IMPRESSION: Acute nondisplaced fracture of the distal radius with soft tissue swelling Old ununited ulnar styloid fracture Severe first CMC joint arthrosis with subluxation Electronically Signed: Sunil Horan MD at 15:05 EDT , Service support , Discharge Plan Triage Chief Complaint: Fall ED Provider: Jose Rhodes Dx/Rx/DC Orders Clinical Impression: Closed left forearm fracture Instructions: ED Forearm Fx Wo Redu Prescriptions: No Action amoxicillin-pot clavulanate 875-125 mg tablet 1 tab PO BID Qty: 20 RF: 0 prednisone 10 mg tablet See Rx Instructions PO .COMPLEX Qty: 31 RF: 0 meloxicam 15 MG tablet 15 mg PO DAILY RF: 0 leflunomide 20 MG tablet 20 mg PO QHS RF: 0 hydroxychloroquine 200 MG tablet 400 mg PO QHS RF: 0 acetaminophen 325 MG tablet 650 mg PO Q4H PRN PRN (Reason: Mild-Moderate Pain (1-510)) RF: 0 omeprazole 20 MG capsule,delayed release(DR/EC) 20 mg PO DAILY RF: 0 levothyroxine 125 MCG tablet 150 mcg PO DAILY@0600 RF: 0 ibuprofen 400 MG tablet 400 mg PO Q6 PRN (Reason: Pain) RF: 0 Primary Care Provider: Evelia Bains Referrals: Evelia Bains MD [Primary Care Provider] - Grzegorz Laguna DO [STAFF PHYSICIAN] - 3-5 Days Activity Restrictions/Additional Instructions: Nondisplaced left distal radius fracture. Maintain splint, sling for comfort. Follow-up with Dr. Laguna in the next 3 to 5 days. Disposition Disposition: Home, Self Care Discharge Date/Time: 09/17/21 15:51
== END 2021-09-17 15:51 | disposition home or self-care (01) ==
PROVIDERS: Emergency Provider Emergency Medicine; PCP Family Medicine
DX: S52.502A Unspecified fracture of the lower end of left radius, initial encounter for closed fracture (principal); W19.XXXA Unspecified fall, initial encounter; Y93.9 Activity, unspecified; Y92.9 Unspecified place or not applicable; Y99.9 Unspecified external cause status; I10 Essential (primary) hypertension; E89.0 Postprocedural hypothyroidism; M19.90 Unspecified osteoarthritis, unspecified site; G89.29 Other chronic pain; Z79.52 Long term (current) use of systemic steroids; Z79.1 Long term (current) use of non-steroidal anti-inflammatories (NSAID); Z79.890 Hormone replacement therapy; Z79.899 Other long term (current) drug therapy
CPT/HCPCS: 29125; 73080; 73090; 73110; 99283

== ENCOUNTER → 2021-09-23 14:59 | Outpatient (CLI) | payer OTHER, SELFPAY ==
--- NOTE | 2021-09-23 15:01 | RAD_ITS ---
History: Fracture follow-up Left wrist 3 views: Comparison: September 17, 2021 Findings: Overlying plaster cast obscures bony detail. Fracture deformity of the distal radius less apparent on the current exam. No change in the position and alignment. Degenerative changes of the first CMC joint again noted. IMPRESSION: Healing nondisplaced fracture of the distal radius. at 0915 Reported and signed by: Ricky Malone MD Electronically Signed: Ricky Malone MD at 9:14 EDT Tel , Service support , RAD/Wrist min 3 Views
== END ==
PROVIDERS: PCP Family Medicine; Referring Provider Physician Assistant; Visit Provider Physician Assistant
DX: S52.502A Unspecified fracture of the lower end of left radius, initial encounter for closed fracture (principal); X58.XXXA Exposure to other specified factors, initial encounter; Y93.9 Activity, unspecified; Y92.9 Unspecified place or not applicable; Y99.9 Unspecified external cause status
CPT/HCPCS: 73110

== ENCOUNTER → 2021-09-30 14:20 | Outpatient (CLI) | payer OTHER, SELFPAY ==
--- NOTE | 2021-09-30 14:22 | RAD_ITS ---
STUDY: X-RAY - LEFT WRIST REASON FOR EXAM: Male, 56 years old. injury, fracture TECHNIQUE: 3 view(s) of the wrist were obtained. COMPARISON: 09/23/2021 FINDINGS: Stable appearance of overlying cast material. Stable fracture deformity of the distal radius without significant interval healing at this time. Remainder is stable. RAD/Wrist min 3 Views IMPRESSION: Stable exam Electronically Signed: Jed Guerrero DO at 4:26 EST Tel , Service support ,
== END ==
PROVIDERS: PCP Family Medicine; Referring Provider Physician Assistant; Visit Provider Physician Assistant
DX: S52.502A Unspecified fracture of the lower end of left radius, initial encounter for closed fracture (principal); X58.XXXA Exposure to other specified factors, initial encounter; Y93.9 Activity, unspecified; Y92.9 Unspecified place or not applicable; Y99.9 Unspecified external cause status
CPT/HCPCS: 73110

== ENCOUNTER → 2021-10-30 09:21 | Outpatient (CLI) | payer OTHER, SELFPAY ==
--- NOTE | 2021-10-30 09:22 | RAD_ITS ---
STUDY: X-RAY - LEFT WRIST REASON FOR EXAM: Male, 56 years old. fracture follow-up TECHNIQUE: 3 view(s) of the wrist were obtained. COMPARISON: 09/30/2021 FINDINGS: There is new buckle fracture of the distal metaphysis of the radius. Normal radiocarpal articulation. Normal distal radioulnar articulation. Normal carpal bones. Normal carpal articulations. There is degenerative arthrosis of the carpometacarpal articulation of the thumb. Normal second through fifth carpometacarpal articulations. Normal visualized metacarpal bones. The soft tissue structures are unremarkable. RAD/Wrist min 3 Views IMPRESSION: There is new buckle fracture of the distal metaphysis of the radius. Electronically Signed: Solomon Piedra MD at 4:33 EST Tel , Service support ,
--- NOTE | 2021-10-30 09:25 | RAD_ITS ---
STUDY: X-RAY - CERVICAL SPINE REASON FOR EXAM: Male, 56 years old. Neck pain TECHNIQUE: 5 view(s) of the cervical spine were obtained. COMPARISON: None FINDINGS: Normal anterior atlantoaxial articulation. Normal odontoid process. Straightening of the cervical lordosis. Degenerative changes of the lower vertebral bodies with spurring at the endplates, more significant between C5-C7. Narrowed disc space heights through the lower half of the cervical column. Uncovertebral spurring narrowing the C5-6 and C6-7 intervertebral neuroforamina. The soft tissue structures are unremarkable. RAD/Cerv Spine 4 or 5 Views IMPRESSION: Degenerative changes of the visualized cervical spine. Electronically Signed: Mark Hoang DO at 17:27 EST Tel [phone], Service support ,
== END ==
PROVIDERS: PCP Family Medicine; Referring Provider Physician Assistant; Visit Provider Physician Assistant
DX: M62.838 Other muscle spasm (principal); M54.2 Cervicalgia; S52.502A Unspecified fracture of the lower end of left radius, initial encounter for closed fracture; X58.XXXA Exposure to other specified factors, initial encounter; Y93.9 Activity, unspecified; Y92.9 Unspecified place or not applicable; Y99.9 Unspecified external cause status
CPT/HCPCS: 72050; 73110

== ENCOUNTER 2021-11-30 08:52 | Outpatient (CLI) | payer OTHER, SELFPAY ==
[2021-11-30 09:46] LABS: Absolute Lymphocyte Count 1.53 X10^3/uL (0.83-4.51); Absolute Neutrophil Count 5.5 X10^3/uL (2.0-7.7); Basophil% 1.2 % (0-1); Eosinophil# 0.25 X10^3/uL; Eosinophils% 2.9 % (0-5); Hematocrit 45.7 % (40-54); Hemoglobin 15.1 g/dL (13.0-16.5); Lymphocyte # 1.53 X10^3/ul (0.83-4.51); Mean Corpuscular Hgb 28.7 pg (27.0-32.0); Mean Corpuscular Volume 86.9 fL (80-94); Mean Platelet Vol. 10.2 fl (6.2-12.0); Monocyte# 1.08 X10^3/uL; Monocyte% 12.7 % (0-10); NRBC Flagged by Analyzer 0 % (0-5); Neutrophil % 64.6 % (47-70); Platelet Count 292 K/mm3 (150-450); RBC Distribution Width CV 12.7 % (11.6-14.6); RBC Distribution Width SD 40.2 fl (35.1-43.9); Red Blood Count 5.26 M/mm3 (4.6-6.2); White Blood Count 8.5 K/mm3 (4.4-11.0)
[2021-11-30 10:25] LABS: AST(SGOT) 37 U/L (15-37); Alanine Aminotransfer ALT/SGPT 32 U/L (16-61); Albumin, Serum 3.6 g/dL (3.2-5.0); Alkaline Phosphatase 87 U/L (45-117); Creatinine, Serum 1.11 mg/dL (0.70-1.30); EST Glomerular Filtration Rate 73 mL/min (>60); Est Glom Filt Rate - Afr Amer 89 mL/min (>60); Globulin 4.2 g/dL (2.2-4.2); Protein, Total 7.8 g/dL (6.4-8.2)
== END 2021-11-30 23:59 | disposition short-term general hospital (02) ==
LOC: LAB 08:55
PROVIDERS: PCP Family Medicine; Referring Provider Internal Medicine Rheumatology; Visit Provider Internal Medicine Rheumatology
DX: M06.4 Inflammatory polyarthropathy (principal); Z79.899 Other long term (current) drug therapy
CPT/HCPCS: 36415; 80076; 82565; 85025

== ENCOUNTER 2022-01-06 13:29 | Outpatient (CLI) | payer OTHER, SELFPAY ==
--- NOTE | 2022-01-06 13:31 | RAD_ITS ---
EXAM: XR LEFT WRIST COMPLETE, 3 OR MORE VIEWS CLINICAL INDICATION: pain TECHNIQUE: Frontal, lateral and oblique views of the left wrist. This report was created using [employer] report generation technology. COMPARISON: None. FINDINGS: BONES/JOINTS: Acute or subacute impaction injury involving the distal radius at the level of the metaphysis. Old nonunited fracture of the ulnar styloid. Severe degenerative changes of the first carpometacarpal joint. Mild to moderate degenerative changes of the triscaphe joint. No sclerotic or destructive changes observed. SOFT TISSUES: Soft tissues swelling about the wrist/fracture site. No other focal soft tissue abnormalities. No radiopaque foreign body. OTHER FINDINGS: No definite involvement of the adjacent articular surface. RAD/Wrist min 3 Views IMPRESSION: Acute or subacute impaction fracture of the distal radius. The Electronically Signed: Regulo Gonzalez MD at 0:15 EST ,
== END 2022-01-06 23:59 | disposition home or self-care (01) ==
LOC: MTRAD 13:30
PROVIDERS: PCP Family Medicine; Referring Provider Physician Assistant; Visit Provider Physician Assistant
DX: S52.502A Unspecified fracture of the lower end of left radius, initial encounter for closed fracture (principal); X58.XXXA Exposure to other specified factors, initial encounter
CPT/HCPCS: 73110

== ENCOUNTER 2022-01-13 10:14 | Outpatient (CLI) | payer OTHER, SELFPAY ==
--- NOTE | 2022-01-13 11:54 | NEURO_ITS ---
NCS and/or EMG Patient Report Ordering Doctor: Ish Peña DATE OF SERVICE: 01/13/22 Indication: Intermittent numbness and tingling of the 4th/5th digits of the left hand. He notes that symptoms seem to be reproduce with pressure on the medial elbow or when flexing his arm (he will feel the nerve dislocate out of the groove). Of note he has a history of mild carpal tunnel on the left, but that is not the reason for her visit today. Findings: Nerve conduction studies were performed in the left upper extremity. The left median motor study recording the abductor pollicis brevis showed a normal amplitude, prolonged distal latency and borderline conduction velocity. The left ulnar motor study recording the abductor digiti minimi showed a normal amplitude, normal distal latency and normal conduction velocity in the forearm segment. Across the elbow, no conduction block or focal slowing was present. The left ulnar motor study recording the first dorsal interosseous showed a normal amplitude, normal distal latency and normal conduction velocity in the forearm segment. Across the elbow, no conduction block or focal slowing was present. Left median-ulnar lumbrical / interosseous motor latencies showed a prolonged median latency compared to the ulnar. The left median sensory response recording digit two showed a normal amplitude, latency and conduction velocity. The left ulnar sensory response recording digit five showed a reduced amplitude, normal latency and normal conduction velocity. The left radial sensory response recording over the extensor snuff box showed a normal amplitude, latency and conduction velocity. Needle EMG of the left upper extremity and cervical paraspinal muscles was performed. No active denervation was present in any sampled muscle. Insertional activity was increased in the first dorsal interosseous. Motor units in the first dorsal interosseous were large amplitude and long duration with normal recruitment. Motor units in the abductor digiti minimi were large amplitude and mildly polyphasic with normal recruitment. All other muscles reveal normal motor unit morphology, activation and recruitment patterns. Impression: This is an abnormal study. There is electrophysiologic evidence consistent with a non-localizable, left ulnar neuropathy. There was no focal slowing or conduction block across the elbow to localize the ulnar neuropathy to the elbow. This is based on the needle EMG findings affecting ulnar-innervated muscles alone. Further localization and characterization of the ulnar nerve lesion could be investigated with a neuromuscular ultrasound. In addition, there was electrophysiologic evidence of a mild median neuropathy across the left wrist. There was no evidence of a superimposed cervical radiculopathy in the left upper extremity. Jose Rawls D.O. Multi Select Codes Neurology Neurology Interp Codes: 32441-15 [facility] test done w/n test comp (interp) and 38036-[address] [facility] cnd test 7-8 studies (interp)
== END 2022-01-13 23:59 | disposition home or self-care (01) ==
LOC: PSN 10:15
PROVIDERS: PCP Family Medicine; Referring Provider Physician Assistant; Visit Provider Physician Assistant
DX: G56.22 Lesion of ulnar nerve, left upper limb (principal)
CPT/HCPCS: 95886; 95910

== ENCOUNTER 2022-01-16 09:00 | Outpatient (RCR) | payer OTHER, SELFPAY ==
--- NOTE | 2021-11-19 12:31 | HP.OTEVAL_ITS ---
Patient's Visit Information NICKIE BROWNE is a 56 year old M, referred to Occupational Therapy by Dr. Evelia Bains MD, with a diagnosis of left radius fx. Date of Evaluation: 11/19/21 Occupational Therapist: Yoselin Burgos, DEVINR/Alecia, CHT - Subjective This 56 year old male was see for OT eval with dx of left distal radius fx. pt states on 09/17/21 he had a incident where he hyper extended his wrist after a light utility trailer came down on his wrist. pt was is cast for 6-7 weeks . pt 13 weeks from DOI- pt states he does have a cock-up brace that his can wear. 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 - ADLs Comments: pt limited with picking up wood pieces to fill his wood burner - Pain left wrist 0 Pain Intensity Range: 8 - ROM Forearm: pt demo full left forearm supination pronation ulna hurts with movement Wrist: right 65/45 left 65/40 NO pain - Strength Fast Brim Pouncer: right 70# left 30# Lateral Pinch: right 10# left 8# Tripod Pinch: right 8# left 4# Tip-to-Tip Pinch: right 6# left unable Strength Comments: pt has pain with resistive pinch - Sensation Sensation Comments: denies - Quick DASH-Disab of Arm,Shoulder& Hand Quick DASH Score: 73.2125 - Goals Goal:: pt will demo a increase in left academic tutor strength by 15# to increase pts ind. with ADLs and IADLs by d/c. pt will demo increase in left lateral and tripod pinch by 4# to increase pts ind. with dressing tasks by d/c Goal:: pt will report no pain greater than 3/10 with use of left UE with ADLs and IADLs by d/c Goal:: pt will demo understanding of wrist ergo to limit stress on tendons and increase functional ADL IND by d.c - Rehabilitation General Assessment: pt arrives 13 weeks following fx of left radius- pt has pain with resistive supination pt has increase pain ulnar side of wrist with push off of chair- and pain with forearm in supination resistive indicating possible TFCC injury- pts pain limits functional use of left UE with ADL.s and IADLS. pt would benefit from skilled OT services 2-3x week for 6 weeks. pt demo understanding and agree to POC. Rehabilitation Potential: Good - Anticipated Interventions A/AAROM/PROM, Strengthening, Triggerpoint Release, Modalities, Orthoses, Joint Protection/Energy Conservation, Education re Diagnosis - Visit Plan Frequency: 2-3x /Week Duration: 6 Weeks TEXT: Thank you for the opportunity to evaluate your patient. For Medicare and Medicare HMO plans, please review the plan of care and approve it. It will need to be FAXED BACK to us at [phone] for Medicare purposes. Please let me know if there are questions or concerns regarding this plan of care. Physician Signature: Date:
== END 2022-01-16 19:00 | disposition home or self-care (01) ==
LOC: PT 09:00
PROVIDERS: PCP Family Medicine; Referring Provider Physician Assistant; Visit Provider Physician Assistant
DX: S52.92XD Unspecified fracture of left forearm, subsequent encounter for closed fracture with routine healing (principal); M06.08 Rheumatoid arthritis without rheumatoid factor, vertebrae; M62.838 Other muscle spasm
CPT/HCPCS: 97035; 97110; 97112; 97162; 97166; 97530

== ENCOUNTER → 2022-03-31 | Outpatient (CLI) | payer OTHER, SELFPAY ==
[2022-03-31 13:58] LABS: Absolute Lymphocyte Count 1.55 X10^3/uL (0.83-4.51); Absolute Neutrophil Count 6.4 X10^3/uL (2.0-7.7); Basophil# 0.07 X10^3/uL; Basophil% 0.8 % (0-1); Eosinophil# 0.05 X10^3/uL; Eosinophils% 0.5 % (0-5); Hematocrit 46.7 % (40-54); Hemoglobin 15.7 g/dL (13.0-16.5); Lymphocyte # 1.55 X10^3/ul (0.83-4.51); Lymphocyte % 16.7 % (19-41); Mean Corp Hgb Conc 33.6 g/dL (32-36); Mean Corpuscular Hgb 30.1 pg (27.0-32.0); Mean Corpuscular Volume 89.5 fL (80-94); Mean Platelet Vol. 9.8 fl (6.2-12.0); Monocyte# 1.21 X10^3/uL; NRBC Flagged by Analyzer 0 % (0-5); Neutrophil # 6.38 X10^3/uL (2.7-7.7); Neutrophil % 68.7 % (47-70); Platelet Count 320 K/mm3 (150-450); RBC Distribution Width CV 12.7 % (11.6-14.6); RBC Distribution Width SD 41.9 fl (35.1-43.9); Red Blood Count 5.22 M/mm3 (4.6-6.2); White Blood Count 9.3 K/mm3 (4.4-11.0)
[2022-03-31 14:29] LABS: AST(SGOT) 42 U/L (15-37); Alanine Aminotransfer ALT/SGPT 33 U/L (16-61); Alkaline Phosphatase 87 U/L (45-117); Bilirubin, Direct 0.13 mg/dL (0.00-0.30); Creatinine, Serum 1.12 mg/dL (0.70-1.30); EST Glomerular Filtration Rate 72 mL/min (>60); Est Glom Filt Rate - Afr Amer 88 mL/min (>60); Globulin 4.1 g/dL (2.2-4.2); Protein, Total 8.1 g/dL (6.4-8.2)
== END | disposition home or self-care (01) ==
LOC: LAB 13:33
PROVIDERS: PCP Family Medicine; Referring Provider Internal Medicine Rheumatology; Visit Provider Internal Medicine Rheumatology
DX: M06.4 Inflammatory polyarthropathy (principal); Z79.899 Other long term (current) drug therapy
CPT/HCPCS: 36415; 80076; 82565; 85025

== ENCOUNTER → 2022-07-09 | Outpatient (CLI) | payer OTHER, SELFPAY ==
[2022-07-09 12:11] LABS: Absolute Lymphocyte Count 1.55 X10^3/uL (0.83-4.51); Absolute Neutrophil Count 5.6 X10^3/uL (2.0-7.7); Basophil# 0.07 X10^3/uL; Basophil% 0.8 % (0-1); Eosinophil# 0.08 X10^3/uL; Eosinophils% 0.9 % (0-5); Hematocrit 43.7 % (40-54); Hemoglobin 14.3 g/dL (13.0-16.5); Lymphocyte # 1.55 X10^3/ul (0.83-4.51); Mean Corp Hgb Conc 32.7 g/dL (32-36); Mean Corpuscular Hgb 29.5 pg (27.0-32.0); Mean Corpuscular Volume 90.1 fL (80-94); Mean Platelet Vol. 9.5 fl (6.2-12.0); Monocyte# 1.24 X10^3/uL; Monocyte% 14.4 % (0-10); NRBC Flagged by Analyzer 0 % (0-5); Neutrophil # 5.63 X10^3/uL (2.7-7.7); Neutrophil % 65.3 % (47-70); Platelet Count 267 K/mm3 (150-450); RBC Distribution Width CV 13.2 % (11.6-14.6); RBC Distribution Width SD 43.6 fl (35.1-43.9); Red Blood Count 4.85 M/mm3 (4.6-6.2); White Blood Count 8.6 K/mm3 (4.4-11.0)
[2022-07-09 12:44] LABS: AST(SGOT) 38 U/L (15-37); Alanine Aminotransfer ALT/SGPT 29 U/L (16-61); Albumin, Serum 3.5 g/dL (3.2-5.0); Alkaline Phosphatase 80 U/L (45-117); Bilirubin, Direct 0.08 mg/dL (0.00-0.30); Creatinine, Serum 1.17 mg/dL (0.70-1.30); EST Glomerular Filtration Rate 69 mL/min (>60); Est Glom Filt Rate - Afr Amer 83 mL/min (>60); Protein, Total 7.5 g/dL (6.4-8.2)
== END | disposition home or self-care (01) ==
LOC: LAB 11:44
PROVIDERS: PCP Family Medicine; Visit Provider Internal Medicine Rheumatology
DX: Z79.899 Other long term (current) drug therapy (principal)
CPT/HCPCS: 36415; 80061; 80076; 82565; 84443; 85025

== ENCOUNTER 2022-07-17 11:00 | Outpatient (RCR) | payer OTHER, SELFPAY ==
--- NOTE | 2022-03-19 08:21 | HP.OTEVAL ---
Patient's Visit Information NICKIE BROWNE is a 56 year old M, referred to Occupational Therapy by Dr. Trini Campuzano MD, with a diagnosis of TFCC tear, fx of distal end of L radius w/malunion. Date of Evaluation: 03/17/22 Occupational Therapist: Yoselin Burgos, ORIANA/Alecia, CHT - Subjective Pt. is a 56 y/o male who had an injury on September 17, 2021 when he fell and broke wrist moving utility trailer, casted 6-7 weeks, tried OT services but did not have success, he had a 2nd opinion and an MRI. On 02-27-22, 3 weeks ago he had sx. L wrist arthroscopic debridement, triangular fibrocartilage complex repair, ulnar shortening osteotomy, cubital tunnel release with transposition. He has had orthoses for 2 weeks. 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 On April 18 he has a follow up with surgeon at [facility]. is present for evaluation. - ADLs Comments: is assisting with bathing & dressing. 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 R hand dominant. 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 - ROM Shoulder: R WFL left WFL Elbow: R WFL left -40/110 Forearm: R WFL left NT Wrist: R WFL left NT ROM Comments: He is able to complete opposition with both hands - Strength Armoring Machine Operator: R 70# Lateral Pinch: R 10# Tripod Pinch: R 14# Tip-to-Tip Pinch: R 10# Strength Comments: R strength is good. LUE is not to be assessed until later date. - Edema Other: no noticeable swelling, comparison with R and appears normal - Sensation Sensation Comments: Pt. has no c/o of numbness and tingling - Quick DASH-Disab of Arm,Shoulder& Hand Quick DASH Score: 89.4725 - Goals Goal:100% adherence to protocol: Yes Comment: NO wrist or forearm Motion for 6 weeks Goal:Daily scar massage when approriate: Yes Goal:ROM equal to unaffected hand: Yes Goal:Armoring Machine Operator/Pinch strength at least 75% of unaffected hand: Yes Goal:No pain with affected hand use: Yes Goal:Improvement in sensation documented by [place]-Sil[place]: Yes - Rehabilitation General Assessment: Pt. has been referred for unilateral primary osteoarthritis of first carpometacarpal joint left hand, TFCC tear, fracture of distal end of left radius with malunion, lesion of ulnar nerve left upper limb. He had surgery on 02-27-22, 3 weeks ago he had sx. L wrist arthroscopic debridement, triangular fibrocartilage complex repair, ulnar shortening osteotomy, cubital tunnel release with transposition. T educated pt. and on what to expect from procedure and OT services. He currently has an orthoses to prevent L forearm supin/pronat, radial/ulnar deviation, & wrist flex/ext. He requires assistance with ADL's and is unable to work at this time. He will benefit from skilled OT services to assess L orthoses & skin integrity 1 x a week for 3 weeks and then 2x a week for 6 weeks for strengthening and ROM to return to independence with ADL's. Pt. and verbalized understanding. Rehabilitation Potential: Good - Anticipated Interventions Early Active Motion, A/AAROM/PROM, Strengthening, Scar Care, Orthoses, Joint Protection/Energy Conservation, Ergonomic Education, Fine Motor Coord/Nimesh, ADL Training, Education re Diagnosis, Education re Self Massage Techniques, Caregiver Training, Home Program Other Interventions: Follow guidelines Do not move for 6 weeks. Only elbow flexion/extension with brace on. - Visit Plan Frequency: 1-2x /Week Duration: 6 Weeks General Plan: start at 1x a week for the next 3 weeks, then go to 2x a week. Stay in brace while completing light elbow flex/ext. Monitor orthoses & skin integrity. Follow [place] [facility] guidelines (p.349-350) if nothing is identified by sx. TEXT: Thank you for the opportunity to evaluate your patient. For Medicare and Medicare HMO plans, please review the plan of care and approve it. It will need to be FAXED BACK to us at [phone] for Medicare purposes. Please let me know if there are questions or concerns regarding this plan of care. Physician Signature: Date:
--- NOTE | 2022-07-17 12:27 | HP.OTEVAL_ITS ---
Patient's Visit Information NICKIE BROWNE is a 57 year old M, referred to Occupational Therapy by Dr. Trini Campuzano MD, with a diagnosis of left CMC arthritis. Date of Evaluation: 07/09/22 Occupational Therapist: Yoselin Burgos, OTR/Alecia, CHT - Subjective This 57 year old male was seen for OT eval with dx of left CMC arthritis and is s/p CMC arthroplasty. pt states sx was on 06/10/22. pt is currently 4 weeks and 1 day out from sx. pt states he is sore and fingers feeling stiff- pt is limited with use of his left hand with ADLs and IADls and would like to return to his PLOF. - ADLs Comments: is assisting with bathing & dressing. 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 R hand dominant. 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 - Pain Left Hand 0 Pain Intensity Range: 7, 8 - ROM Shoulder: R WFL left WFL Elbow: R WFL left 0/110 Forearm: R WFL left NT Wrist: right 45/60 left 50/15 CMC: right 15 left 5* MP: right 55 left 15* IP: right 70 left 60* Opposition: kapandji opposition scale right 10 left 9 ROM Comments: He is able to complete opposition with both hands - Strength Word Processor Technician: right 70# left NT Lateral Pinch: right 10# left NT Tripod Pinch: right 6# left NT Tip-to-Tip Pinch: R 10# Strength Comments: R strength is good. LUE is not to be assessed until later date. - Edema Other: no noticeable swelling, comparison with R and appears normal - Sensation Sensation Comments: denies - Quick DASH-Disab of Arm,Shoulder& Hand Quick DASH Score: 63.6350 - Goals Goal:100% adherence to protocol: Yes Comment: Dr. Campuzano CMC arthroplasty protocol Goal:Daily scar massage when approriate: Yes Goal:ROM equal to unaffected hand: Yes Goal:Word Processor Technician/Pinch strength at least 75% of unaffected hand: Yes Goal:No pain with affected hand use: Yes Goal:Full use of affected hand in daily activities including: Yes Goal:Improvement in sensation documented by [place]-Silvia: Yes Goal:Decrease scar hypersensitivity: Yes - Rehabilitation General Assessment: pt arrives 4 weeks and 1 day s/p form left cmc arthroplasty- pt demo with limited ROM of left wrist digits- as well as limited use of left hand for ADLs and IADLs- pt would benefit from skilled OT services 1x week for next 4-6 weeks to assist pt in returning to P LOF. Rehabilitation Potential: Excellent - Anticipated Interventions A/AAROM/PROM, Strengthening, Scar Care, Triggerpoint Release, Desensitization, Modalities, Orthoses, Joint Protection/Energy Conservation, Ergonomic Education, Fine Motor Coord/Nimesh, Education re assistive Equipment, Education re Diagno sis, Home Program Other Interventions: Follow guidelines Do not move for 6 weeks. Only elbow flexion/extension with brace on. - Visit Plan Frequency: 1-2x /Week Duration: 6 Weeks General Plan: Dr. Campuzano CMC arthroplasty. Week 2: exercise- AROM performed for digits and thumb IP joint only- initiate scar mtg. Week 4: Begin AROM exercises for wrist thumb CMC- joint- cont. scar mtg/edema control (modalities as indicated for pain and edema. Week 6: splint D/C and issue comfort cool fitted splint if needed- discontinue splint by 8 weeks post-operative except may wear during heavy activates pm. Exercise: start gentle strengthening(thera- putty), progress as tolerated. Progress to wrist strengthening and heavier prehension tasks at 8 weeks post-operative. Avoid forceful extension of thumb. Expectations: Most patients are treated with a Home Program and checked after each MD visit for program progression 2x weekly for 4-6 weeks for symptomatic patients or those returning to heavier work demands. 2 months to resume normal activities, 3 months for strenuous. 3-6 months to reach optimum results. slight decrease in pinch and shoe cutter strength. generally, gain 70% of strength and motion of unoperated hand. TEXT: Thank you for the opportunity to evaluate your patient. For Medicare and Medicare HMO plans, please review the plan of care and approve it. It will need to be FAXED BACK to us at [phone] for Medicare purposes. Please let me know if there are questions or concerns regarding this plan of care. Physician Signature: Date:
--- NOTE | 2022-07-17 12:28 | HP.OTREVAL ---
Dr. Trini Campuzano MD, It has been my pleasure to treat NICKIE BROWNE over the last 2 visits for left CMC arthritis. Please see the progress note below for an update on the occupational therapy plan of care! Subjective: pt arrives 5 weeks and 2 days s/p from cmc arthroplasty- pt states he is INd with bathing and dressing at IND level- states he is not to limited - wearing his long thumb spica orthosis when around his dogs and outside of his home as well as sleeping in it- pt will need comfort cool orthosis vended from hand center as [facility] is a non DME supplier and can not bill ins. pt demo understanding and will get comfort cool thumb brace Thursday Objective/Function: left wrist 65/30 ( prior hx of wrist fx). left CMC 20*. left MP 35*. left IP 60*. opposition to tip of LF. left grout machine operator strength 50# right is 70#. pt demo with great ROM following CMC arthroplasty-. scar is supple. min. bruising still noted on volar forearm but fading-. pt states he is working his thumb and wrist as he tolerates-. pt demo understanding of avoiding hyper ext of MPJ Plan Frequency: 1-2x /Week Duration: 6 Weeks Plan: 04-10-22 cut down orthoses at 6-8 weeks to short arm orthoses. 6 weeks begin short arc wrist & forearm rotation at 6 weeks. 10-12 weeks full AROM. strengthening 10-12 weeks. hand strengthening 12 weeks. wear elbow brace at night for 12 weeks. Goals - Goals Patient Goals: Regain Strength, Use Hand/Wrist/Arm Normally Again, Be More Independent in ADLS Goal:100% adherence to protocol: Yes Goal:Daily scar massage when approriate: Yes Goal:ROM equal to unaffected hand: Yes Goal:Assistant Professor Of Nursing/Pinch strength at least 75% of unaffected hand: Yes Goal:No pain with affected hand use: Yes Goal:Full use of affected hand in daily activities including: Yes Goal:Improvement in sensation documented by [place]-Silvia: Yes Goal:Decrease scar hypersensitivity: Yes Anticipated Interventions Anticipated Interventions: A/AAROM/PROM, Strengthening, Scar Care, Triggerpoint Release, Desensitization, Modalities, Orthoses, Joint Protection/Energy Conservation, Ergonomic Education, Fine Motor Coord/Nimesh, Education re assistive Equipment, Education re Diagnosis, Home Program Other Interventions: Follow guidelines Do not move for 6 weeks. Only elbow flexion/extension with brace on. Please do not hesitate to contact me at [phone] by phone or if you have questions or concerns regarding this new plan of care! Sincerely, Yoselin Burgos, OTR/L, CHT
--- NOTE | 2022-08-26 13:17 | HP.OTDCSUM_ITS ---
It has been my pleasure to treat NICKIE BROWNE under orders from Dr. Trini Campuzano MD, for the diagnosis of left CMC arthritis for a total of 2 visit(s). Please see the following information for a summary of their discharge status. pt was seen for only 2 visits- last one being 03/17/22 pt did not schedule further apts. due to time lapse in care pt is D/C at this time. Objective/Function: left wrist 65/30 ( prior hx of wrist fx). left CMC 20*. left MP 35*. left IP 60*. opposition to tip of LF. 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 pt demo with great ROM following CMC arthroplasty-. scar is supple. min. bruising still noted on volar forearm but fading-. pt states he is working his thumb and wrist as he tolerates-. pt demo understanding of avoiding hyper ext of MPJ Patient Goals: Regain Strength, Use Hand/Wrist/Arm Normally Again, Be More Independent in ADLS Goal:100% adherence to protocol: Yes Goal:Daily scar massage when approriate: Yes Goal:ROM equal to unaffected hand: Yes Goal:Home Performance Consultant/Pinch strength at least 75% of unaffected hand: Yes Goal:No pain with affected hand use: Yes Goal:Full use of affected hand in daily activities including: Yes Goal:Improvement in sensation documented by [place]-Silvia: Yes Goal:Decrease scar hypersensitivity: Yes Plan: 04-10-22 cut down orthoses at 6-8 weeks to short arm orthoses. 6 weeks begin short arc wrist & forearm rotation at 6 weeks. 10-12 weeks full AROM. strengthening 10-12 weeks. hand strengthening 12 weeks. wear elbow brace at night for 12 weeks. If there are questions or concerns regarding this patient's occupational therapy, please fell free to call me at [phone]. Thank you for the referral of this patient. Sincerely, Yoselin Burgos, OTR/L, CHT
== END 2022-07-17 19:00 | disposition home or self-care (01) ==
LOC: OT 11:00
PROVIDERS: PCP Family Medicine; Referring Provider Orthopaedic Surgery Hand Surgery; Visit Provider Orthopaedic Surgery Hand Surgery
DX: M18.12 Unilateral primary osteoarthritis of first carpometacarpal joint, left hand (principal); S63 Dislocation and sprain of joints and ligaments at wrist and hand level; S52.502P Unspecified fracture of the lower end of left radius, subsequent encounter for closed fracture with malunion; G56.22 Lesion of ulnar nerve, left upper limb
CPT/HCPCS: 97110; 97140; 97166; 97530; 97760

== ENCOUNTER 2022-07-22 18:18 | Emergency (ER) | payer OTHER, SELFPAY ==
[2022-07-22 18:20] VITALS: BP 134/95; PULSE 90; RESP 16; TEMP 36.4; O2SAT 100; BMI 25.8
--- NOTE | 2022-07-22 19:59 | EDS_ITS ---
HPI History of Present Illness Chief Complaint: Back Narrative Narrative: 57-year-old male here with back pain. Patient states this started after lifting heavy objects yesterday. States he has right-sided low back pain that is constant, severe worse with movement, radiating down the right leg. Patient denies any saddle anesthesia, urinary tension, bowel or bladder incontinence, lower extremity weakness, fever or IV drug use, no recent spinal manipulation or surgery, no recent urinary catheterization. Old chart reviewed: No recent advanced imaging of the spine was noted [facility] Medical History (Updated 07/22/22 @ 22:[address] Korey Zheng, ) Arthritis Bone fracture Carpal tunnel syndrome Chronic back pain Goiter Hearing loss Hypertension Osteoarthritis Seasonal allergies SOB (shortness of breath) TFCC (triangular fibrocartilage complex) injury Home Medications hydroxychloroquine 200 mg tablet 400 mg PO QHS RA 03/01/17 [History Last Taken 06/04/18] leflunomide 20 mg tablet 20 mg PO QHS RA 03/01/17 [History Last Taken 06/04/18] acetaminophen 325 mg tablet 650 mg PO Q4H PRN PRN Mild-Moderate Pain (1-5/10) 08/28/18 [Rx Last Taken Unknown] levothyroxine 125 mcg tablet 150 mcg PO DAILY@0600 11/10/18 [History Last Taken Unknown] omeprazole 20 mg capsule,delayed release 20 mg PO DAILY GERD 11/10/18 [History Last Taken Unknown] celecoxib 100 mg capsule (Celebrex) 100 mg PO BID 01/06/22 [History Last Taken Unknown] prednisone 50 mg tablet 50 mg PO DAILY 5 days #5 tabs 07/22/22 [Rx Last Taken Unknown] Allergy/AdvReac Type Severity Reaction Status Date / Time No Known Allergies Allergy Verified 07/22/22 18:19 Family History Father Myocardial infarction Hypertension CAD (coronary artery disease) PCI-Stent x 2 Unknown Arthritis High cholesterol Thyroid disorder Skin cancer Surgical History History of carpal tunnel release History of herniorrhaphy History of thyroidectomy Social History Smoking Status: Never smoker alcohol intake: never substance use type: does not use ROS ROS ED Eyes Eyes: Denies other visual disturbances ENT ENT ED: Denies ear pain Cardiovascular Cardiovascular: Denies chest pain Respiratory/Chest Respiratory/Chest: Denies dyspnea Gastrointestinal Gastrointestinal: Denies abdominal pain Genitourinary Genitourinary ED: Denies dysuria Musculoskeletal Musculoskeletal: Reports back pain Integumentary Denies rash Neurologic Neurologic: Denies dizziness, focal weakness, numbness, syncope or weakness Psychiatric Psychiatric: Denies homicidal ideation or suicidal ideation EXAM Physical Exam Const Vital Signs: 07/22/22 18:20 Temperature 97.6 F L Temperature Source Temporal Pulse Rate 90 Respiratory Rate 16 Blood Pressure 134/95 H Blood Pressure Mean 108 Pulse Ox 100 Oxygen Delivery Method Room Air Negative for alert or oriented x3 General Appearance ED: Negative for comfortable Orientation / Consciousness: Negative for awake HEENT Denies normocephalic Face and Sinus: Negative for face symmetric External Ear: Negative for external ears normal Mouth ED: No moist mucous membranes normal Throat: Negative for posterior oropharynx normal Eyes Negative for PERRL or EOMs intact bilaterally Neck No full ROM Carotids: other Other Details: no carotid bruits Chest Wall Negative for inspection of chest normal Resp No normal respiratory effort, No no retractions, No no use of accessory muscles and No clear to auscultation bilaterally Cardio Negative for no murmurs or peripheral pulses 2+ throughout GI Negative for no bruits GI Narrative: no pulsatile abdominal masses Negative for no CVA tenderness Back/Spine no CVA tenderness Back/Spine Narrative: No midline step-offs or deformities noted to the lumbar spine, positive straight leg raise test on the right, intact sensation and strength in the bilateral lower extremities Extremity Negative for normal to inspection or full ROM MDM MDM MDM Narrative Medical decision making narrative: 57-year-old male here with back pain after lifting heavy object. No back pain red flags to suggest space-occupying lesion of the spine. Likely musculoskeletal. Gave Tylenol, steroids, opiates for pain control here in the emergency department discharged with similar. Patient was ambulatory upon discharge. Treatment and Re-Evaluation Narrative: Patient's pain improved he is appropriate for discharge home. Discharge Plan Triage Chief Complaint: Back ED Provider: Korey Zheng Dx/Rx/DC Orders Clinical Impression: Back pain Instructions: Back Basics: A Healthy Spine Prescriptions: New prednisone 50 mg tablet 50 mg PO DAILY 5 Days Qty: 5 0RF No Action celecoxib [Celebrex] 100 mg capsule 100 mg PO BID leflunomide 20 MG tablet 20 mg PO QHS hydroxychloroquine 200 MG tablet 400 mg PO QHS acetaminophen 325 MG tablet 650 mg PO Q4H PRN PRN (Reason: Mild-Moderate Pain (-04/01)) 0RF omeprazole 20 MG capsule,delayed release(DR/EC) 20 mg PO DAILY levothyroxine 125 MCG tablet 150 mcg PO DAILY@0600 Primary Care Provider: Evelia Bains Referrals: Evelia Bains MD [Primary Care Provider] - Activity Restrictions/Additional Instructions: Please refrain from lifting heavy objects. Please return if develop bowel or bladder incontinence, decree sensation around her private parts, loss of sensation in your leg. Disposition Disposition: Home, Self Care
[2022-07-22 20:19] VITALS: RESP 18
[2022-07-22] MEDS: predniSONE 20 MG Tablet 40 MG PO (21:05)
[2022-07-22] MEDS: Acetaminophen 325 MG Tablet PO (21:05)
[2022-07-22] MEDS: Lidocaine 5% Patch 1 PATCH TOPICAL (21:06)
[2022-07-22] MEDS: oxyCODONE 5 MG Tablet PO (21:06)
[2022-07-22 22:00] VITALS: BP 132/86; PULSE 84; RESP 18; O2SAT 95
[2022-07-22 22:20] VITALS: RESP 18
== END 2022-07-22 22:29 | disposition home or self-care (01) ==
PROVIDERS: Emergency Provider Emergency Medicine; PCP Family Medicine; Visit Provider Emergency Medicine
DX: M54.50 Low back pain, unspecified (principal); I10 Essential (primary) hypertension; Z79.899 Other long term (current) drug therapy; X50.0XXA Overexertion from strenuous movement or load, initial encounter
CPT/HCPCS: 99282

== ENCOUNTER 2022-10-02 15:30 | Outpatient (RCR) | payer OTHER, SELFPAY ==
--- NOTE | 2022-09-25 11:53 | HP.OTEVAL ---
Patient's Visit Information NICKIE BROWNE is a 57 year old M, referred to Occupational Therapy by ALDEN KILLIAN, with a diagnosis of right CMC OA. Date of Evaluation: 09/25/22 Occupational Therapist: Yoselin Burgos, ORIANA/Alecia, CHT - Subjective this 57 year old male was seen for OT eval with dx of OA of right 1st ccm Joint. pt is well known to this therapist as he was treated following his left CMC arthroplasty. Pt states he struggled with pain for years in bilateral thumbs. Pt states currently he has not pain and is very happy he had sx. done. pt arrives 4 weeks and 2 days s/p cmc arthroplasty ligament reconstruction tendon interposition; DeQuervain'S tenosynovectomy thumb adductor releases. pt currently limited with ADLs and IADls due to healing structures and precautions. pt would like to return to perform his ADLs and IADLs at PLOF. - Pain right hand 2 Pain Intensity Range: 2 - ROM Wrist: right 60/40 left 60/45 CMC: right 20 left 20 MP: right 30 left 40 IP: right 50 left 65 Radial Abduction: right 55 left 45 - Strength Energy Attorney: right 40# left 60# Lateral Pinch: right NT left 8# Tripod Pinch: right NT left 8# - Sensation Sensation Comments: denies - Quick DASH-Disab of Arm,Shoulder& Hand Quick DASH Score: 56.8175 - Goals Goal:100% adherence to protocol: Yes Comment: DR. Trini Campuzano CMC arthroplasty Goal:Daily scar massage when approriate: Yes Goal:ROM equal to unaffected hand: Yes Goal:Energy Attorney/Pinch strength at least 75% of unaffected hand: Yes Goal:No pain with affected hand use: Yes Goal:Full use of affected hand in daily activities including: Yes - Rehabilitation General Assessment: pt arrives 4 weeks and 2 days s/p cmc arthroplasty ligament reconstruction tendon interposition; DeQuervain'S tenosynovectomy thumb adductor releases. pt demo with a decrease in ROM and strength due to healing structures. pt is limited with ADLs and IADls. Pt would benefit from skilled OT services 1x week for 6 weeks to rehab pt to PLOF with ADLs and IADLS. Today therapist following Dr. Trini Campuzano post-op protocol for CMC arthroplasty cut WHFO thumb spica down to hand based thumb spica- therapist ed. pt on week 4 s/p protocol thumb cmc motion- scar mtg- and PROM for wrist if it is tight- pt demo understanding and agree to POC. Rehabilitation Potential: Good - Anticipated Interventions A/AAROM/PROM, Strengthening, Scar Care, Modalities, Orthoses, Joint Protection/Energy Conservation, Ergonomic Education, Fine Motor Coord/Nimesh, Education re assistive Equipment, Education re Diagnosis, Home Program - Visit Plan Frequency: Every Other Week Duration: 6 Weeks General Plan: Dr. Campuzano CMC arthroplasty. Week 2: exercise- AROM performed for digits and thumb IP joint only Begin short arc wrist motion - initiate scar mtg. Week 4: cut WHFO thumb spica down to hand based thumb spica -Begin PROM to wrist if tight- AROM for thumb CMC- joint- cont. scar mtg/edema control (modalities as indicated for pain and edema. Week 6: comfort cool splint orthoplast splint at night and heavy activity. Exercise: start gentle strengthening(thera-putty), progress as tolerated. Progress to wrist strengthening and heavier prehension tasks at 8 weeks post-operative. *Avoid forceful extension of thumb *. Week 8 D/C orthoplast splint by week 8 except for heavy activity PRN -progress to wrist strengthening and heavier prehension tasks. *Avoid forceful extension of the thumb*. Expectations: Most patients are treated with a Home Program and checked after each MD visit for program progression 2x weekly for 4-6 weeks for symptomatic patients or those returning to heavier work demands. 2 months to resume normal activities, 3 months for strenuous. 3-6 months to reach optimum results. 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 generally, gain 70% of strength and motion of unoperated hand. TEXT: Thank you for the opportunity to evaluate your patient. For Medicare and Medicare HMO plans, please review the plan of care and approve it. It will need to be FAXED BACK to us at [phone] for Medicare purposes. Please let me know if there are questions or concerns regarding this plan of care. Physician Signature: Date:
--- NOTE | 2022-09-26 14:03 | HP.PTEVAL_ITS ---
Patient's Visit Information NICKIE BROWNE is a 57 year old M referred to Physical Therapy by ALDEN KILLIAN with a diagnosis of R shoulder pain, Lumbar spine pain with R radicular symptoms. Date of Evaluation: 09/25/22 Physical Therapist: Son Zavala DPT - Visit Plan Frequency: 2x /Week Duration: 6 Weeks Plan: Start with R biceps DFM, ER strengthening and scapular strengthening. May use US at bicpital groove as well. Add in neutral spine seated posture, add in TA activation and slight lumbar extension as tolerated. Progress as able. - Subjective Pt. is here today for his initial evaluation with diagnosis of R shoulder pain and more recently having increased LBP. Pt. did have a CMC arthroplasty ~7 weeks ago. Pt. has a history L2-L3 spinal fracture, no surgery He reports no R shoulder pain at rest. Increases pain: movement, sleeping on it and any lifting. Pt. has not done any exercises for it at this point in time. Pt. reports no N/T in either UEs. He does have some N/T in his L LE. Pt. has increased low back stiffness in morning. 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 Pt. reports having 6-7/10 pain in R LE and lumbar spine. Pt. has a history of LBP for a few years, but this is worse than previously. He reports his pain is at his R anterior shoulder, near biceps region. Pt. had no N/T in either UE. He reports no mech of injury in his shoulder. No imaging of shoulder done at this time. - Pain R shoulder Pain Intensity (Out of 10): 0 Pain Intensity Range: 0, 7 Lumbar spine Pain Intensity (Out of 10): 8 Pain Intensity Range: 2, 10 - Objective POSTURE: Pt. had slight guarded posture of R shoulder, FH and R anterior shoulder positioning. Pt. has slight increase in rounded shoulders bilaterally. Lumbar spine: slight reduced lumbar lordosis, sway back slightly. Slight wt. shift to L side. No lateral shift noted. PALPATION: Pt. has increased tenderness at R biceps, no pain throughout rest of subacromial space. Pt. has tenderness in lumbar spine. Very tender in prone lying. Pt. has no pain with palpation throughout RLE. NEURO: Pt. has normal sensation in BUEs and BLEs. Pt. has 2+ achilles and patellar DTR bilaterally. He is able to rise on heels and toes without issues, no myotomal issue. No change in B/B noted. ROM: R shoulder: AROM: flexion 145deg, abd 140deg, functional ER C3, functional IR L5. PROM: flexon 170deg mild increase NW, abd 165deg mild increase NW, ER at 90deg 50deg, IR at 90eg 50deg. LUMBAR SPINE: flexion mod loss increase NW, Ext max loss increase NW, SB R mod loss increase NW, SB L min loss NE, rotation R mod loss increase NW, rotation L min loss NE. MMT: Pt. has 5/5 strength throughout distal BLEs. 4/5 throughout B hips with increased pain throughout. L shoulder: 5/5 throughout. R shoulder: flexion 4/5 increase NW, abd 4+ increase NW, ER 5/5 NE, IR 5/5 NE, ext 5/5 NE. GAIT: Pt. has reduced step length and guarded posture with gait. Pt. has limited arm swing and slight flexed posture. Increased pain noted with all standing and walking. - Special Tests L/S Slump test left side: Negative L/S Slump test right side: Positive L/S Left Straight Leg Raise: Negative L/S Right Straight Leg Raise: Positive Lumbar Standing: Flexion - Mechanical Response: No effect Lumbar Standing: Flexion - Symptoms During Testing: Increases Lumbar Standing: Flexion - Symptoms After Testing: No worse Lumbar Standing: Extension - Mechanical Response: No effect Lumbar Standing: Extension - Symptoms During Testing: Increases Lumbar Standing: Extension - Symptoms After Testing: No worse Lumbar Standing: Right Side Glides - Mechanical Response: No effect Lumbar Standing: Right Side [place] - Symptoms During Testing: No effect Lumbar Standing: Right Side [place] - Symptoms After Testing: No effect Lumbar Standing: Left Side [place] - Mechanical Response: No effect Lumbar Standing: Left Side [place] - Symptoms During Testing: No effect Lumbar Standing: Left Side [place] - Symptoms After Testing: No effect Lumbar Lying: Extension - Mechanical Response: No effect Lumbar Lying: Extension - Symptoms During Testing: Increases Lumbar Lying: Extension - Symptoms After Testing: No better Lumbar Static: Slouched Sit - Mechanical Response: No effect Lumbar Static: Slouched Sit - Symptoms During Testing: Increases Lumbar Static: Slouched Sit - Symptoms After Testing: Worse Lumbar Static: Sitting Erect - Mechanical Response: No effect Lumbar Static: Sitting Erect - Symptoms During Testing: Decreases Lumbar Static: Sitting Erect - Symptoms After Testing: Better Lumbar Static:Lying Prone in Extension - Mechanical Response: No effect Lumbar Static: Lying Prone in Extension - Sx During Testing: Increases Lumbar Static: Lying Prone in Extension - Sx After Testing: Worse Comments:: unable to tolerate prone very well at all R Shoulder Drop Sign - IS Test: Negative R Shoulder Empty Can - SS: Negative R Shoulder Belly Press - SupScap: Negative R Shoulder Neer - Impingement: Positive R Shoulder [place] - Impingement: Positive R Shoulder Biceps Load Test - Labrum: Positive R Shoulder [place] - SLAP: Negative R Shoulder Speeds Test - Labrum/Biceps: Positive - Balance/Special Test Scores Quick DASH Score: 56.8175 - Goals Goal 1:: LTG: Pt. to b I with HEP for lumbar ROM and stability, but also for RTC/scapular stability and biceps strengthening. Goal Time Frame: 4-6 Weeks Goal 2:: STG: Pt. to be able to sleep throughout the night without increase in symptoms. Goal Time Frame: 2 Weeks Goal 3:: STG: Pt. to have full R shoulder without increase in symptoms. Goal Time Frame: 2-4 Weeks Goal 4:: LTG: Pt. to have full lumbar spine ROM without increase in symptoms. Goal Time Frame: 4-6 Weeks Goal 5:: LTG: Pt. to reports 0-2/10 pain in lumbar spine and no distal LE symptoms with all daily activities. Goal Time Frame: 4-6 Weeks Goal 6:: LTG: Pt. to have increased core strength and R shoulder strength to 5/5 throughout without increase in symptoms. Goal Time Frame: 4-6 Weeks - Rehabilitation Potential Physical Therapy Diagnosis: Pt. has signs and symptoms consistent with R shoulder pain and lumbar radiculopathy. From testing today, it appear like he has a biceps tendinopathy, but hard to determine tear or not. He also presents with radiating LBP down his RLE. Pt. has what appears to be discogenic pathology. He did have reduction in symptoms with good neutral spine posture, but marked increase in symptoms with increased extension and flexion positioning as well as standing and walking. Nickie would benefit from PT to initially reduced his radicular symptoms with neutral spine positioning. Also to work on ER stability or shoulder and slowly adding stress to biceps to assist with remoding. Rehabilitation Potential: Good - Anticipated Interventions Patient/Client Instruction: Educate patient on: Condition, Plan of Care, Risk Factors, Benefits of Fitness Program For the Purpose of:: To foster healthy habits, To improve decision making, To facilitate caregiver knowledge, To improve self management, To prevent re- injury, To improve ability to perform tasks related to life management Therapeutic Exercise to Include: Strength training, Power training, Body mechanics, Postural training, Flexibilty training, Passive ROM, Active ROM, Dynamic Lumbar Stabilization, Jess Exercises, Scapular Strength/Stabilization For the Purpose of:: To decrease pain, To increase ROM, To improve nutrient delivery to tissue, To increase oxygenation perfusion, To improve muscle performance and motor function, To improve ability to perform ADL's, To increase tolerance to activity/condition/position, To improve performance and independen ce with ADL's, To improve health of tissue, To decrease soft tissue restriction, To increase flexibility/ROM Manual Therapy Techniques to Include: Mobilization, Functional dry needling, Soft tissue mobilization For the Purpose of:: To decrease pain, To increase ROM, To improve nutrient delivery to tissue, To increase oxygenation perfusion, To improve muscle performance and motor function, To improve health of tissue, To decrease soft tissue restriction Ultrasound (thermal/non thermal): Yes For the Purpose of:: To decrease pain, To decrease swelling/inflammation, To increase ROM, To improve health of tissue, To decrease soft tissue restriction Thank you for the opportunity to evaluate your patient. For Medicare and Medicare HMO plans, please review the plan of care and approve it. It will need to be FAXED BACK to us at [phone] for Medicare purposes. For Medicare only, by signing this I certify the plan of care. Please let me know if there are questions or concerns regarding this plan of care. Physician Signature: Date:
--- NOTE | 2022-10-03 09:08 | HP.PTREVAL_ITS ---
ALDEN KILLIAN, It has been my pleasure to treat NICKIE BROWNE over the last 2 visits for R shoulder pain, Lumbar spine pain with R radicular symptoms. Please see the progress note below for an update on the physical therapy plan of care! Subjective: Pt. reports that his leg and back feels worse. His shoulder also feels worse. Pt. reports pain radiating down his leg to his foot currently. Objective/Function: Pt. is having intense pain down his R leg form lumbar spine to foot. walking is better, but hes reports barely tolerating sitting for short periods of time. I would not be surprised if he has a larger disc protrusion. An MRI might be warranted at this point in time. I did talk to him about not over doing it at home, as he did say he was lifting his bathtub at home. Plan Plan: Start with R biceps DFM, ER strengthening and scapular strengthening. May use US at bicpital groove as well. Add in neutral spine seated posture, add in TA activation and slight lumbar extension as tolerated. Progress as able. Balance/Gait/Functional tests - Balance/Special Test Scores Quick DASH Score: 56.8175 Goals Goal 1:: LTG: Pt. to b I with HEP for lumbar ROM and stability, but also for RTC/scapular stability and biceps strengthening. Goal Time Frame: 4-6 Weeks Goal 2:: STG: Pt. to be able to sleep throughout the night without increase in symptoms. Goal Time Frame: 2 Weeks Goal 3:: STG: Pt. to have full R shoulder without increase in symptoms. Goal Time Frame: 2-4 Weeks Goal 4:: LTG: Pt. to have full lumbar spine ROM without increase in symptoms. Goal Time Frame: 4-6 Weeks Goal 5:: LTG: Pt. to reports 0-2/10 pain in lumbar spine and no distal LE symptoms with all daily activities. Goal Time Frame: 4-6 Weeks Goal 6:: LTG: Pt. to have increased core strength and R shoulder strength to 5/5 throughout without increase in symptoms. Goal Time Frame: 4-6 Weeks Anticipated Interventions Patient/Client Instruction: Educate patient on: Condition, Plan of Care, Risk Factors, Benefits of Fitness Program For the Purpose of:: To foster healthy habits, To improve decision making, To facilitate caregiver knowledge, To improve self management, To prevent re- injury, To improve ability to perform tasks related to life management Therapeutic Exercise to Include: Strength training, Power training, Body mechanics, Postural training, Flexibilty training, Passive ROM, Active ROM, Dynamic Lumbar Stabilization, Jess Exercises, Scapular Strength/Stabilization For the Purpose of:: To decrease pain, To increase ROM, To improve nutrient delivery to tissue, To increase oxygenation perfusion, To improve muscle performance and motor function, To improve ability to perform ADL's, To increase tolerance to activity/condition/position, To improve performance and independence with ADL's, To improve health of tissue, To decrease soft tissue restriction, To increase flexibility/ROM Manual Therapy Techniques to Include: Mobilization, Functional dry needling, Soft tissue mobilization For the Purpose of:: To decrease pain, To increase ROM, To improve nutrient delivery to tissue, To increase oxygenation perfusion, To improve muscle performance and motor function, To improve health of tissue, To decrease soft tissue restriction Ultrasound (thermal/non thermal): Yes For the Purpose of:: To decrease pain, To decrease swelling/inflammation, To increase ROM, To improve health of tissue, To decrease soft tissue restriction Please do not hesitate to contact me at [phone] by phone or if you have questions or concerns regarding this new plan of care! Sincerely, Son Zavala DPT
== END 2022-10-02 19:00 | disposition home or self-care (01) ==
LOC: PT 15:30
PROVIDERS: PCP Family Medicine
DX: M18.11 Unilateral primary osteoarthritis of first carpometacarpal joint, right hand (principal); M25.511 Pain in right shoulder; M51.16 Intervertebral disc disorders with radiculopathy, lumbar region
CPT/HCPCS: 97110; 97162; 97166

== ENCOUNTER → 2022-10-11 | Outpatient (CLI) | payer OTHER, SELFPAY ==
[2022-10-11 11:09] LABS: Absolute Lymphocyte Count 1.38 X10^3/uL (0.83-4.51); Absolute Neutrophil Count 4.9 X10^3/uL (2.0-7.7); Basophil# 0.08 X10^3/uL; Basophil% 1.1 % (0-1); Eosinophil# 0.15 X10^3/uL; Hematocrit 46.1 % (40-54); Hemoglobin 15.2 g/dL (13.0-16.5); Lymphocyte # 1.38 X10^3/ul (0.83-4.51); Lymphocyte % 18.6 % (19-41); Mean Corpuscular Hgb 29.6 pg (27.0-32.0); Mean Corpuscular Volume 89.9 fL (80-94); Mean Platelet Vol. 9.1 fl (6.2-12.0); Monocyte# 0.92 X10^3/uL; Monocyte% 12.4 % (0-10); NRBC Flagged by Analyzer 0 % (0-5); Neutrophil # 4.86 X10^3/uL (2.7-7.7); Neutrophil % 65.5 % (47-70); Platelet Count 259 K/mm3 (150-450); RBC Distribution Width SD 42.7 fl (35.1-43.9); Red Blood Count 5.13 M/mm3 (4.6-6.2); White Blood Count 7.4 K/mm3 (4.4-11.0)
[2022-10-11 11:45] LABS: AST(SGOT) 34 U/L (15-37); Alanine Aminotransfer ALT/SGPT 31 U/L (16-61); Albumin, Serum 3.6 g/dL (3.2-5.0); Alkaline Phosphatase 73 U/L (45-117); Bilirubin, Direct 0.15 mg/dL (0.00-0.30); Cholesterol 286 mg/dL (200); EST Glomerular Filtration Rate 74 mL/min (>60); Est Glom Filt Rate - Afr Amer 89 mL/min (>60); Globulin 3.8 g/dL (2.2-4.2); High Density Lipoprotein 51 mg/dL; Protein, Total 7.4 g/dL (6.4-8.2); Thyroid Stim Hormone (TSH) 4.45 uIU/mL (0.358-3.74); Triglycerides 234 mg/dL; Very Low Density Lipoprotein 47 mg/dL (5-40)
== END | disposition home or self-care (01) ==
LOC: LAB 10:40
PROVIDERS: Internal Medicine Rheumatology; PCP Family Medicine; Referring Provider Family Medicine; Visit Provider Family Medicine
DX: E03.2 Hypothyroidism due to medicaments and other exogenous substances (principal); E78.5 Hyperlipidemia, unspecified; Z79.899 Other long term (current) drug therapy
CPT/HCPCS: 36415; 80061; 80076; 82565; 84443; 85025

== ENCOUNTER → 2022-10-17 | Outpatient (CLI) | payer OTHER, SELFPAY ==
--- NOTE | 2022-10-17 18:00 | MRI_ITS ---
STUDY: MRI RIGHT SHOULDER REASON FOR EXAM: Male, 57 years old. RIGHT SHOULDER PAIN RIGHT SHOULDER PAIN TECHNIQUE: Standardized fat and water weighted pulse sequences were obtained in all 3 orthogonal planes. COMPARISON: None. FINDINGS: Normal supraspinatus tendon. Normal infraspinatus tendon. There is subscapularis edema and a complete tear of the subscapularis tendon at its insertion site into the humerus. There is dislocation of the biceps tendon, displaced medially along the deep surface of the subscapularis tendon and within the joint space. Normal teres minor tendon. The biceps tendon is NOT within the bicipital groove. Normal supraspinatus muscle. Normal infraspinatus muscle. Normal subscapularis muscle. Normal teres minor muscle. Normal glenohumeral articulation. Normal humeral head and visualized proximal humerus. Normal biceps labral complex. Normal capsulo- ligamentous complex. Normal rotator interval. There is mild osteoarthritis of the acromioclavicular articulation. There is minimal fluid distention of the subacromial bursa, consistent with mild subacromial-subdeltoid bursitis. Normal visualized coracohumeral and coracoacromial ligaments. Normal quadrilateral space. Normal axillary space. Normal deltoid muscle. Normal trapezius muscle. MRI/Upper Ext Joint Only(Routine) IMPRESSION: There is subscapularis edema and a complete tear of the subscapularis tendon at its insertion site into the humerus. There is dislocation of the biceps tendon, displaced medially along the deep surface of the subscapularis tendon and within the joint space. Electronically Signed: Alphonse Gan MD at 19:29 EST ,
== END | disposition home or self-care (01) ==
LOC: MRI 17:24
PROVIDERS: PCP Family Medicine; Visit Provider Orthopaedic Surgery Hand Surgery
DX: M25.511 Pain in right shoulder (principal)
CPT/HCPCS: 73221

== ENCOUNTER → 2022-11-17 | Outpatient (CLI) | payer OTHER, SELFPAY ==
--- NOTE | 2022-11-17 07:20 | MRI_ITS ---
STUDY: MRI LUMBAR SPINE WITHOUT CONTRAST REASON FOR EXAM: Male, 57 years old. BACK PAIN TECHNIQUE: Standardized fat and water weighted pulse sequences were obtained in the sagittal and axial planes. COMPARISON: None FINDINGS: T10-T11: (Sagittal only). Normal endplates. Minimal disc space height narrowing. No ventral extradural defect. Mild bilateral degenerative facet arthropathy. Normal central canal and bilateral intervertebral neural foramina. T11-T12: (Sagittal only). Normal endplates. Minimal disc space height narrowing. No ventral extradural defect. Normal central canal and bilateral intervertebral neural foramina. T12-L1: (Sagittal only). Schmorl''s nodes in the adjacent vertebral endplates. Mild disc space height narrowing. Normal central canal and bilateral intervertebral neural foramina. Normal lumbar lordosis. There is no substantial scoliosis. Normal conus medullaris that terminates at the lower T12 vertebral body level. L1-2: Normal endplates. Normal disc height, hydration and morphology. Normal bilateral facet joints. Normal central canal and bilateral lateral recesses. Normal bilateral intervertebral neural foramina. L2-3: Normal endplates. Moderate disc space height narrowing. Prominent ventral extradural defect due to posterior annular bulging disc causing moderately pronounced flattening central canal stenosis with an AP canal diameter of 6 mm. This is in addition to developmentally short pedicles and prominent dorsal epidural lipomatosis. Mild asymmetric degenerative facet arthropathy. Normal bilateral lateral recesses. Mild stenosis of the bilateral intervertebral neural foramina. L3-4: Normal endplates. Moderate disc space height narrowing. Mild ventral extradural defect due to posterior annular bulging disc causing moderate central canal stenosis with an AP canal diameter of 6.8 mm. This is in addition to developmentally short pedicles and mild dorsal epidural lipomatosis. Normal bilateral lateral recesses. Mild asymmetric degenerative facet arthropathy. Normal left intervertebral neural foramen. Mild stenosis of the right intervertebral neural foramen. L4-5: Minimal Modic type II degenerative vertebral marrow fat infiltration underneath the peripheral aspects of the vertebral endplates. Prominent and broad Schmorl''s node in the anterior L5 superior endplate. Moderate pronounced disc space height narrowing. Mild ventral extradural defect due to small posterior bulging annulus. Mild left degenerative facet arthropathy. Normal right facet joint. Moderate central canal stenosis with an AP canal diameter of 8 mm. Mild dorsal epidural lipomatosis. Normal bilateral lateral recesses. Mild stenosis of the bilateral intervertebral neural foramina. L5-S1: Normal endplates. Moderate disc space height narrowing. Mild ventral extradural defect due to posterior bulging annulus. Moderate bilateral degenerative facet arthropathy. Mild central canal stenosis with an AP canal diameter of 9.2 mm. Normal bilateral lateral recesses. Moderate stenosis of the right intervertebral neural foramen with suspicious minimal impingement of the right L5 nerve. Moderate stenosis of the left intervertebral neural foramen with minimal impingement of the left L5 nerve. Normal visualized sacral ala. Normal visualized paraspinous soft tissue structures. MRI/Spine Lumbar (Routine) IMPRESSION: 1. Moderately pronounced flattening central canal stenosis at L2-L3 disc space level with an AP canal diameter of 6 mm secondary to prominent posterior annular bulging disc, developmentally short pedicles and prominent dorsal epidural lipomatosis. 2. Moderate central canal stenosis at L3-L4 disc space level with an AP canal diameter of 6.8 mm secondary to smaller posterior bulging disc, developmentally short pedicles and mild dorsal epidural lipomatosis. 3. Moderate central canal stenosis at L4-L5 disc space level with an AP canal diameter of 8 mm secondary to small posterior bulging annulus and mild dorsal epidural lipomatosis. 4. Mild central canal stenosis at L5-S1 disc space level with an AP canal diameter of 9.2 mm and moderate stenosis of the bilateral intervertebral neural foramina with suspicious minimal impingement of both L5 nerves, right greater than left. 5. No MRI evidence of lumbar extruded disc fragment. Electronically Signed: Davi Rubio MD at 8:27 EST ,
== END | disposition home or self-care (01) ==
PROVIDERS: PCP Family Medicine; Visit Provider Family Medicine
DX: M51.16 Intervertebral disc disorders with radiculopathy, lumbar region (principal)
CPT/HCPCS: 72148

== ENCOUNTER 2022-12-30 13:30 | Outpatient (RCR) | payer OTHER, SELFPAY | END 2022-12-30 19:00 | disposition home or self-care (01) | LOC: PT 13:30 | PROVIDERS: PCP Family Medicine; Referring Provider Orthopaedic Surgery Hand Surgery; Visit Provider Orthopaedic Surgery Hand Surgery | DX: M75.101 Unspecified rotator cuff tear or rupture of right shoulder, not specified as traumatic (principal) | CPT/HCPCS: 97110; 97140; 97162 ==

== ENCOUNTER → 2023-01-31 | Outpatient (CLI) | payer OTHER, SELFPAY ==
[2023-01-31 11:51] LABS: Absolute Lymphocyte Count 1.88 X10^3/uL (0.83-4.51); Absolute Neutrophil Count 6.9 X10^3/uL (2.0-7.7); Basophil# 0.06 X10^3/uL; Basophil% 0.6 % (0-1); Eosinophil# 0.15 X10^3/uL; Eosinophils% 1.5 % (0-5); Hematocrit 45.6 % (40-54); Hemoglobin 14.8 g/dL (13.0-16.5); Lymphocyte # 1.88 X10^3/ul (0.83-4.51); Lymphocyte % 18.6 % (19-41); Mean Corp Hgb Conc 32.5 g/dL (32-36); Mean Corpuscular Volume 89.2 fL (80-94); Mean Platelet Vol. 9.9 fl (6.2-12.0); Monocyte# 1.12 X10^3/uL; Monocyte% 11.1 % (0-10); NRBC Flagged by Analyzer 0 % (0-5); Neutrophil # 6.86 X10^3/uL (2.7-7.7); Neutrophil % 67.8 % (47-70); Platelet Count 342 K/mm3 (150-450); RBC Distribution Width CV 13.1 % (11.6-14.6); Red Blood Count 5.11 M/mm3 (4.6-6.2); White Blood Count 10.1 K/mm3 (4.4-11.0)
[2023-01-31 12:27] LABS: AST(SGOT) 37 U/L (15-37); Alanine Aminotransfer ALT/SGPT 32 U/L (16-61); Albumin, Serum 3.9 g/dL (3.2-5.0); Alkaline Phosphatase 104 U/L (45-117); Bilirubin, Direct 0.18 mg/dL (0.00-0.30); EST Glomerular Filtration Rate 83 mL/min (>60); Est Glom Filt Rate - Afr Amer 100 mL/min (>60); Globulin 3.9 g/dL (2.2-4.2); Protein, Total 7.8 g/dL (6.4-8.2)
[2023-02-02 11:03] LABS: Cholesterol 168 mg/dL (200); High Density Lipoprotein 60 mg/dL; Triglycerides 90 mg/dL; Very Low Density Lipoprotein 18 mg/dL (5-40)
== END | disposition home or self-care (01) ==
LOC: LAB 11:24
PROVIDERS: PCP Family Medicine; Referring Provider Internal Medicine Rheumatology; Visit Provider Internal Medicine Rheumatology
DX: E78.5 Hyperlipidemia, unspecified (principal); Z79.899 Other long term (current) drug therapy
CPT/HCPCS: 36415; 80061; 80076; 82565; 85025

== ENCOUNTER → 2023-12-21 | Outpatient (CLI) | payer OTHER, SELFPAY ==
[2023-12-21 12:36] LABS: Erythrocyte Sedimentation Rate 5 mm/hr (0-20)
[2023-12-21 12:39] LABS: Absolute Lymphocyte Count 1.43 X10^3/uL (0.83-4.51); Absolute Neutrophil Count 5.7 X10^3/uL (2.0-7.7); Basophil# 0.08 X10^3/uL; Basophil% 0.9 % (0-1); Eosinophil# 0.19 X10^3/uL; Eosinophils% 2.2 % (0-5); Hematocrit 45.6 % (40-54); Hemoglobin 14.7 g/dL (13.0-16.5); Lymphocyte # 1.43 X10^3/ul (0.83-4.51); Lymphocyte % 16.9 % (19-41); Mean Corp Hgb Conc 32.2 g/dL (32-36); Mean Corpuscular Hgb 28.8 pg (27.0-32.0); Mean Corpuscular Volume 89.2 fL (80-94); Mean Platelet Vol. 10.7 fl (6.2-12.0); Monocyte# 0.99 X10^3/uL; Monocyte% 11.7 % (0-10); NRBC Flagged by Analyzer 0 % (0-5); Neutrophil # 5.74 X10^3/uL (2.7-7.7); Neutrophil % 67.9 % (47-70); Platelet Count 243 K/mm3 (150-450); RBC Distribution Width SD 42.6 fl (35.1-43.9); Red Blood Count 5.11 M/mm3 (4.6-6.2); White Blood Count 8.5 K/mm3 (4.4-11.0)
[2023-12-21 14:08] LABS: AST(SGOT) 39 U/L (15-37); Alanine Aminotransfer ALT/SGPT 32 U/L (16-61); Albumin, Serum 3.7 g/dL (3.2-5.0); Alkaline Phosphatase 78 U/L (45-117); Bilirubin, Direct 0.17 mg/dL (0.00-0.30); CRP < 2.90 mg/L (0.0-3.0); Creatinine, Serum 1.08 mg/dL (0.70-1.30); EST Glomerular Filtration Rate 75 mL/min (>60); Est Glom Filt Rate - Afr Amer 91 mL/min (>60); Globulin 3.5 g/dL (2.2-4.2); Protein, Total 7.2 g/dL (6.4-8.2)
== END | disposition home or self-care (01) ==
PROVIDERS: PCP Family Medicine
DX: M06.4 Inflammatory polyarthropathy (principal); Z79.899 Other long term (current) drug therapy
CPT/HCPCS: 36415; 80076; 82565; 85025; 85652; 86140

== ENCOUNTER → 2024-01-28 | Outpatient (CLI) | payer OTHER, SELFPAY ==
--- NOTE | 2024-01-28 15:35 | RAD_ITS ---
INDICATION: Bilateral hip pain and weakness EXAMINATION/TECHNIQUE: X-RAY - XR Hips Bilateral with Pelvis when performed; 2 Views COMPARISON: No relevant prior comparison study available FINDINGS: PELVIC BONES: No displaced fracture, destructive or sclerotic lesions. Note that overlapping bowel shadows may however obscure fine detail. Sacroiliac joints are unremarkable. No widening of the pubic symphysis. HIPS: The articular structures are unremarkable. No displaced fracture seen in this frontal view. SOFT TISSUES: No soft tissue swelling or gas. RAD/Hips B/L min 2 views w/ Pelvis IMPRESSION: No evidence of displaced pelvic or hip fracture. Electronically Signed: Sunil Horan MD at 11:06 EDT ,
== END | disposition home or self-care (01) ==
LOC: MTRAD 15:46
PROVIDERS: PCP Family Medicine; Referring Provider Chiropractor; Visit Provider Chiropractor
DX: M06.9 Rheumatoid arthritis, unspecified (principal); M25.551 Pain in right hip; M25.552 Pain in left hip
CPT/HCPCS: 73521

== ENCOUNTER → 2024-04-08 | Outpatient (CLI) | payer OTHER, SELFPAY ==
[2024-04-08 16:30] LABS: Erythrocyte Sedimentation Rate 6 mm/hr (0-20)
[2024-04-08 16:33] LABS: Absolute Lymphocyte Count 1.81 X10^3/uL (0.83-4.51); Absolute Neutrophil Count 4.5 X10^3/uL (2.0-7.7); Basophil# 0.11 X10^3/uL; Basophil% 1.5 % (0-1); Eosinophil# 0.12 X10^3/uL; Eosinophils% 1.6 % (0-5); Hematocrit 46.1 % (40-54); Hemoglobin 14.7 g/dL (13.0-16.5); Lymphocyte # 1.81 X10^3/ul (0.83-4.51); Lymphocyte % 23.9 % (19-41); Mean Corp Hgb Conc 31.9 g/dL (32-36); Mean Corpuscular Hgb 28.8 pg (27.0-32.0); Mean Corpuscular Volume 90.2 fL (80-94); Mean Platelet Vol. 10.6 fl (6.2-12.0); Monocyte% 13.2 % (0-10); NRBC Flagged by Analyzer 0 % (0-5); Neutrophil # 4.49 X10^3/uL (2.7-7.7); Neutrophil % 59.1 % (47-70); Platelet Count 294 K/mm3 (150-450); RBC Distribution Width CV 13.1 % (11.6-14.6); RBC Distribution Width SD 43.3 fl (35.1-43.9); Red Blood Count 5.11 M/mm3 (4.6-6.2); White Blood Count 7.6 K/mm3 (4.4-11.0)
[2024-04-08 16:42] LABS: AST(SGOT) 45 U/L (15-37); Alanine Aminotransfer ALT/SGPT 35 U/L (16-61); Alkaline Phosphatase 85 U/L (45-117); Bilirubin, Direct 0.15 mg/dL (0.00-0.30); CRP < 2.90 mg/L (0.0-3.0); Creatinine, Serum 1.08 mg/dL (0.70-1.30); EST Glomerular Filtration Rate 75 mL/min (>60); Est Glom Filt Rate - Afr Amer 91 mL/min (>60); Globulin 3.6 g/dL (2.2-4.2); Protein, Total 7.6 g/dL (6.4-8.2)
== END | disposition home or self-care (01) ==
LOC: MTLAB 12:37
PROVIDERS: PCP Family Medicine
DX: M06.4 Inflammatory polyarthropathy (principal); Z79.899 Other long term (current) drug therapy
CPT/HCPCS: 36415; 80076; 82565; 85025; 85652; 86140

== ENCOUNTER → 2024-07-08 | Outpatient (CLI) | payer OTHER, SELFPAY ==
[2024-07-08 17:41] LABS: Absolute Lymphocyte Count 1.73 X10^3/uL (0.83-4.51); Basophil# 0.08 X10^3/uL; Basophil% 0.8 % (0-1); Eosinophil# 0.12 X10^3/uL; Eosinophils% 1.2 % (0-5); Hematocrit 43.5 % (40-54); Hemoglobin 13.8 g/dL (13.0-16.5); Lymphocyte # 1.73 X10^3/ul (0.83-4.51); Lymphocyte % 17.1 % (19-41); Mean Corp Hgb Conc 31.7 g/dL (32-36); Mean Corpuscular Hgb 28.4 pg (27.0-32.0); Mean Corpuscular Volume 89.5 fL (80-94); Mean Platelet Vol. 10.6 fl (6.2-12.0); Monocyte# 1.16 X10^3/uL; Monocyte% 11.4 % (0-10); NRBC Flagged by Analyzer 0 % (0-5); Neutrophil # 7.01 X10^3/uL (2.7-7.7); Neutrophil % 69.1 % (47-70); Platelet Count 318 K/mm3 (150-450); RBC Distribution Width CV 12.8 % (11.6-14.6); RBC Distribution Width SD 42.4 fl (35.1-43.9); Red Blood Count 4.86 M/mm3 (4.6-6.2); White Blood Count 10.1 K/mm3 (4.4-11.0)
[2024-07-08 17:59] LABS: Erythrocyte Sedimentation Rate 10 mm/hr (0-20)
[2024-07-08 18:03] LABS: AST(SGOT) 37 U/L (15-37); Alanine Aminotransfer ALT/SGPT 25 U/L (16-61); Alkaline Phosphatase 102 U/L (45-117); Bilirubin, Direct 0.15 mg/dL (0.00-0.30); Creatinine, Serum 1.13 mg/dL (0.70-1.30); EST Glomerular Filtration Rate 71 mL/min (>60); Est Glom Filt Rate - Afr Amer 86 mL/min (>60); Globulin 3.3 g/dL (2.2-4.2); Protein, Total 7.3 g/dL (6.4-8.2)
== END | disposition home or self-care (01) ==
LOC: MTLAB 14:57
PROVIDERS: PCP Family Medicine
DX: M06.4 Inflammatory polyarthropathy (principal); Z79.899 Other long term (current) drug therapy
CPT/HCPCS: 36415; 80076; 82565; 85025; 85652; 86140

== ENCOUNTER → 2024-10-01 | Outpatient (CLI) | payer OTHER, SELFPAY ==
[2024-10-01 09:46] LABS: Absolute Lymphocyte Count 2.08 X10^3/uL (0.83-4.51); Basophil# 0.08 X10^3/uL; Basophil% 0.6 % (0-1); Eosinophil# 0.22 X10^3/uL; Eosinophils% 1.7 % (0-5); Hematocrit 42.4 % (40-54); Hemoglobin 14.2 g/dL (13.0-16.5); Lymphocyte # 2.08 X10^3/ul (0.83-4.51); Lymphocyte % 16.2 % (19-41); Mean Corp Hgb Conc 33.5 g/dL (32-36); Mean Corpuscular Hgb 29.4 pg (27.0-32.0); Mean Corpuscular Volume 87.8 fL (80-94); Mean Platelet Vol. 9.1 fl (6.2-12.0); Monocyte# 1.39 X10^3/uL; Monocyte% 10.8 % (0-10); NRBC Flagged by Analyzer 0 % (0-5); Neutrophil # 8.99 X10^3/uL (2.7-7.7); Platelet Count 286 K/mm3 (150-450); RBC Distribution Width CV 13.1 % (11.6-14.6); Red Blood Count 4.83 M/mm3 (4.6-6.2); White Blood Count 12.9 K/mm3 (4.4-11.0)
[2024-10-01 09:48] LABS: Erythrocyte Sedimentation Rate 2 mm/hr (0-20)
[2024-10-01 10:16] LABS: AST(SGOT) 82 U/L (15-37); Alanine Aminotransfer ALT/SGPT 102 U/L (16-61); Albumin, Serum 3.6 g/dL (3.2-5.0); Alkaline Phosphatase 83 U/L (45-117); Bilirubin, Direct 0.15 mg/dL (0.00-0.30); CRP < 2.90 mg/L (0.0-3.0); Creatinine, Serum 1.06 mg/dL (0.70-1.30); EST Glomerular Filtration Rate 77 mL/min (>60); Est Glom Filt Rate - Afr Amer 93 mL/min (>60); Globulin 3.4 g/dL (2.2-4.2)
[2024-10-01 10:25] LABS: Cholesterol 244 mg/dL (200); High Density Lipoprotein 64 mg/dL; Thyroid Stim Hormone (TSH) 0.694 uIU/mL (0.358-3.740); Triglycerides 122 mg/dL; Very Low Density Lipoprotein 24 mg/dL (5-40)
== END | disposition home or self-care (01) ==
PROVIDERS: PCP Family Medicine
DX: M06.4 Inflammatory polyarthropathy (principal); E78.5 Hyperlipidemia, unspecified; E03.2 Hypothyroidism due to medicaments and other exogenous substances; Z79.899 Other long term (current) drug therapy
CPT/HCPCS: 36415; 80061; 80076; 82565; 84443; 85025; 85652; 86140

== ENCOUNTER → 2025-01-27 | Outpatient (CLI) | payer OTHER, SELFPAY ==
[2025-01-27 12:23] LABS: Absolute Lymphocyte Count 1.53 X10^3/uL (0.83-4.51); Absolute Neutrophil Count 3.3 X10^3/uL (2.0-7.7); Basophil# 0.03 X10^3/uL; Basophil% 0.5 % (0-1); Eosinophil# 0.11 X10^3/uL; Eosinophils% 1.8 % (0-5); Hematocrit 47.2 % (40-54); Hemoglobin 15.8 g/dL (13.0-16.5); Lymphocyte # 1.53 X10^3/ul (0.83-4.51); Lymphocyte % 25.2 % (19-41); Mean Corp Hgb Conc 33.5 g/dL (32-36); Mean Corpuscular Hgb 29.6 pg (27.0-32.0); Mean Corpuscular Volume 88.6 fL (80-94); Mean Platelet Vol. 10.3 fl (6.2-12.0); Monocyte# 1.14 X10^3/uL; Monocyte% 18.8 % (0-10); NRBC Flagged by Analyzer 0 % (0-5); Neutrophil # 3.26 X10^3/uL (2.7-7.7); Neutrophil % 53.5 % (47-70); Platelet Count 214 K/mm3 (150-450); RBC Distribution Width CV 12.4 % (11.6-14.6); RBC Distribution Width SD 40.6 fl (35.1-43.9); Red Blood Count 5.33 M/mm3 (4.6-6.2); White Blood Count 6.1 K/mm3 (4.4-11.0)
[2025-01-27 12:34] LABS: Erythrocyte Sedimentation Rate 10 mm/hr (0-20)
[2025-01-27 12:48] LABS: AST(SGOT) 57 U/L (<=37); Alanine Aminotransfer ALT/SGPT 41 U/L (<=46); Albumin, Serum 4.4 g/dL (3.5-5.0); Alkaline Phosphatase 109 U/L (40-129); Creatinine, Serum 1.02 mg/dL (0.70-1.20); EST Glomerular Filtration Rate 86 (>60); Globulin 3.3 g/dL (2.2-4.2); Protein, Total 7.7 g/dL (5.9-8.4); Total Bilirubin 0.41 mg/dL (0.00-1.30)
== END | disposition home or self-care (01) ==
LOC: MTLAB 11:10
PROVIDERS: PCP Family Medicine; Referring Provider Internal Medicine Rheumatology; Visit Provider Internal Medicine Rheumatology
DX: M06.4 Inflammatory polyarthropathy (principal); Z79.899 Other long term (current) drug therapy
CPT/HCPCS: 36415; 80076; 82565; 85025; 85652; 86140

== ENCOUNTER → 2025-04-06 | Outpatient (CLI) | payer OTHER, SELFPAY ==
[2025-04-06 15:16] LABS: Absolute Lymphocyte Count 1.53 X10^3/uL (0.83-4.51); Basophil# 0.08 X10^3/uL; Basophil% 0.9 % (0-1); Eosinophils% 1.1 % (0-5); Hematocrit 42.4 % (40-54); Hemoglobin 13.9 g/dL (13.0-16.5); Lymphocyte # 1.53 X10^3/ul (0.83-4.51); Lymphocyte % 16.9 % (19-41); Mean Corp Hgb Conc 32.8 g/dL (32-36); Mean Corpuscular Hgb 29.3 pg (27.0-32.0); Mean Corpuscular Volume 89.5 fL (80-94); Mean Platelet Vol. 10.9 fl (6.2-12.0); Monocyte% 14.3 % (0-10); NRBC Flagged by Analyzer 0 % (0-5); Neutrophil # 6.03 X10^3/uL (2.7-7.7); Neutrophil % 66.5 % (47-70); Platelet Count 222 K/mm3 (150-450); RBC Distribution Width CV 13.6 % (11.6-14.6); RBC Distribution Width SD 44.9 fl (35.1-43.9); Red Blood Count 4.74 M/mm3 (4.6-6.2); White Blood Count 9.1 K/mm3 (4.4-11.0)
[2025-04-06 15:18] LABS: Erythrocyte Sedimentation Rate 6 mm/hr (0-20)
[2025-04-06 15:37] LABS: AST(SGOT) 41 U/L (<=37); Alanine Aminotransfer ALT/SGPT 26 U/L (<=46); Albumin, Serum 4.2 g/dL (3.5-5.0); Alkaline Phosphatase 79 U/L (40-129); Bilirubin, Direct 0.16 mg/dL (0.00-0.30); Creatinine, Serum 0.93 mg/dL (0.70-1.20); EST Glomerular Filtration Rate 96 (>60); Globulin 2.7 g/dL (2.2-4.2); Protein, Total 6.9 g/dL (5.9-8.4); Total Bilirubin 0.33 mg/dL (0.00-1.30)
[2025-04-06 15:42] LABS: CRP < 3.00 mg/L (0.0-3.0)
== END | disposition home or self-care (01) ==
LOC: MTLAB 11:34
PROVIDERS: PCP Family Medicine
DX: M06.4 Inflammatory polyarthropathy (principal); Z79.899 Other long term (current) drug therapy
CPT/HCPCS: 36415; 80076; 82565; 85025; 85652; 86140

== ENCOUNTER 2025-06-12 09:03 | Day surgery (SDC) | payer OTHER, SELFPAY ==
--- NOTE | 2025-06-09 14:22 | PAT.ANESEVAL ---
Pre-Assessment Diagnosis/Proposed Procedure Planned Operative Procedure(s): CSCOPE OA Anesthesia History Anesthesia History - tanning wheel filler: Anesthesia History - tanning wheel filler Hx Hospitalization No 06/09/25 08:38 Any Problems With Anesthesia Yes: N,V 06/09/25 08:38 Cholinesterase deficiency No 06/09/25 08:38 You/Your Family Experience No 06/09/25 08:38 fever (hyperthermia) with Relationship Recent Exposure to Contagious Disease Does patient have nerve No 06/09/25 08:38 stimulator Patient instructed to have device shut off --Does patient have Pacemaker or ICD? When Was Last Pacemaker Check QUESTION #4 FULL TEXT: You/Your Family Experience fever (hyperthermia) with Anesthesia Last Oral Intake Last Oral intake: Last Oral Intake NPO since Meds taken in AM with sips of water? Meds patient instructed to take am of surgery PONV PONV - tanning wheel filler: PONV - tanning wheel filler Female No 06/09/25 08:38 HX of Motion Sickness No 06/09/25 08:38 HX of N/V After Surgery No 06/09/25 08:38 Non-Smoker Yes 06/09/25 08:38 Duration of Surgery greater No 06/09/25 08:38 than 60 minutes Number of Risk Factors 1 06/09/25 08:38 PONV Score Low Risk 06/09/25 08:38 Height & Weight Height & Weight: Anesthesia: Height & Weight Height 5 ft 9 in 01/28/24 15:23 Respiratory Assessment Respiratory Assessment - tanning wheel filler: Respiratory Tract Infection Hx - tanning wheel filler Hx Respiratory Tract Infection No 06/09/25 08:38 STOP Sleep Apnea STOP Sleep Apnea - tanning wheel filler: STOP Sleep Apnea - tanning wheel filler Hx Hypertension Yes: CONTROLLED WITH MED 06/09/25 08:38 Hx Sleep Apnea No 06/09/25 08:38 CPAP BIPAP Do you snore loudly (louder No 06/09/25 08:38 than talking or can be heard Do you often feel tired/ No 06/09/25 08:38 fatigued/ sleepy during daytime? Has anyone observed you stop No 06/09/25 08:38 breathing during sleep? STOP Results Negative 06/09/25 08:38 QUESTION #5 FULL TEXT : Do you snore loudly (louder than talking or can be heard through closed doors)? 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 Specify any problems Hx of Preganancy in last 3 N/A 06/09/25 08:38 Months Nurse Filling Out Transfusion DSCHRIBER 06/09/25 08:38 & Questions: Date: 06/09/25 06/09/25 08:38 Time: 08:40 06/09/25 08:38 Patient unable to answer at this time (ie. 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 History - tanning wheel filler: /Reproductive Hx- tanning wheel filler Hx Now No 06/09/25 08:38 Gestational Age (in weeks): EDC: Hx Hx Para Hx Section SAB No 06/09/25 08:38 [facility] Medical History (Updated 06/09/25 @ 08:46 by Amita Locke) PONV (postoperative nausea and vomiting) Loss of hearing Wears glasses Alcohol use Thyroid disease Rheumatoid arthritis Gastric reflux Non-smoker Cardiology follow-up encounter History of echocardiogram History of fracture of arm TFCC (triangular fibrocartilage complex) injury Hypertension Osteoarthritis Chronic back pain Home Medications ?Medication ?Instructions ?Recorded ?Last Taken ?Type hydroxychloroquine 200 mg tablet 400 mg PO QHS RA 03/01/17 06/04/18 History leflunomide 20 mg tablet 20 mg PO QHS RA 03/01/17 06/04/18 History levothyroxine 125 mcg tablet 150 mcg PO DAILY@0600 11/10/18 Unknown History omeprazole 20 mg capsule,delayed 20 mg PO DAILY GERD 11/10/18 Unknown History release celecoxib 100 mg capsule (Celebrex) 100 mg PO BID 01/06/22 Unknown History amitriptyline 100 mg tablet 100 mg PO QHS 07/16/23 Unknown History cyclobenzaprine 5 mg tablet 5 mg PO QHS 07/16/23 Unknown History metoprolol succinate 100 mg 100 mg PO DAILY 07/16/23 Unknown History tablet,extended release 24 hr Allergy/AdvReac Type Severity Reaction Status Date / Time No Known Allergies Allergy Verified 06/09/25 08:36 Family History Father Myocardial infarction Hypertension CAD (coronary artery disease) PCI-Stent x 2 Unknown Arthritis High cholesterol Thyroid disorder Skin cancer Surgical History (Updated 06/09/25 @ 08:46 by Amita Locke) Hx of colonoscopy History of thumb surgery History of carpal tunnel surgery of right wrist History of lumbar surgery History of thyroidectomy History of herniorrhaphy Social History Smoking Status: Never smoker alcohol intake: never substance use type: does not use Audit: Pertinent Findings Pertinent Findings EKG Perinent findings: November 10, 2018. Normal sinus rhythm. Minimal voltage criteria for LVH. Nonspecific ST abnormality. Echo (EF%) pertinent findings: 06/15/2018. EF of 55%. No aortic valve stenosis noted. Recommendation Anesthesia Recommendation Anesthesia recommendation: OPTIMIZED for anesthesia
[2025-06-12] VITALS (9 sets, daily range): BP systolic 111–154; BP diastolic 83–99; PULSE 77–102; RESP 16–18; TEMP 36.3–36.6; O2SAT 97–100; BMI 24.6
[2025-06-12] MEDS: Lactated Ringers 1,000 ML 15 ML IV (09:26)
--- NOTE | 2025-06-12 09:32 | PCM.PRE.AN2 ---
ASA Classification* ASA Classification ASA Classification: 3 Assessment & Plan Anesthesia* Anesthesia Assessment Anesthesia Assessment: Discussed sedation and/or anesthesia options, risks, benefits, and alternatives with patient/parents/legal guardian/POA. Questions invited. The patient/parents/legal guardian/POA seems to understand and agrees to proceed with anesthesia plan. Reviewed the physical assessment, medical history, allergy history and patient home medications list prior to surgery/procedure/anesthetic and documented any changes. Performed airway and anesthesia risk assessments. Anesthesia Type Anesthesia Type: MAC History Source History Obtained from:: Patient and Chart Anesthesia Focused Assessment* Temperature: 97.3 F Pulse Rate: 102 Blood Pressure: 154/94 Respiratory Rate: 16 Pulse Ox: 97 Oxygen Delivery Method: Room Air Airway Assessment Mouth opens: >3 cm Mallampati Score: I Teeth Condition: Intact Neck Range of motion (ROM): Full ROM Labs Anesthesia Preop lab: CBC WBC 9.1 K/mm3 (4.4-11.0) 04/06/25 11:46 04/06/25 RBC 4.74 M/mm3 (4.6-6.2) 04/06/25 11:46 04/06/25 Hgb 13.9 g/dL (13.0-16.5) 04/06/25 11:46 04/06/25 Hct 42.4 % (40-54) 04/06/25 11:46 04/06/25 Plt Count 222 K/mm3 (150-450) 04/06/25 11:46 04/06/25 CHEMISTRY Potassium 3.2 mmol/L (3.5-5.1) L 11/10/18 23:50 11/10/18 Sodium 139 mmol/L (136-145) 11/10/18 23:50 11/10/18 Magnesium 2.0 mg/dL (1.6-2.6) 08/31/18 11:56 08/31/18 BUN 18 mg/dL (7-18) 11/10/18 23:50 11/10/18 Creatinine 0.93 mg/dL (0.70-1.20) 04/06/25 11:46 04/06/25 Glucose 104 mg/dL (74-106) 11/10/18 23:50 11/10/18 POC Glucose 132 mg/dL (70-110) H 08/27/18 10:28 08/27/18 TSH 0.694 uIU/mL (0.358-3.740) 10/01/24 09:34 10/01/24 COAG Pre-Assessment Diagnosis/Proposed Procedure Planned Operative Procedure(s): CSCOPE OA Anesthesia History Anesthesia History - supervisor shuttle veneering: Anesthesia History - supervisor shuttle veneering Hx Hospitalization No 06/09/25 08:38 Any Problems With Anesthesia Yes: N,V 06/09/25 08:38 Cholinesterase deficiency No 06/09/25 08:38 You/Your Family Experience No 06/09/25 08:38 fever (hyperthermia) with Relationship Recent Exposure to Contagious No 06/12/25 09:19 Disease Does patient have nerve No 06/09/25 08:38 stimulator Patient instructed to have device shut off --Does patient have Pacemaker No 06/12/25 09:19 or ICD? When Was Last Pacemaker Check QUESTION #4 FULL TEXT: You/Your Family Experience fever (hyperthermia) with Anesthesia Last Oral Intake Last Oral intake: Last Oral Intake NPO since 06:30 06/12/25 09:19 Meds taken in AM with sips of Yes 06/12/25 09:19 water? Meds patient instructed to see medlist 06/12/25 09:19 take am of surgery PONV PONV - supervisor shuttle veneering: PONV - supervisor shuttle veneering Female No 06/09/25 08:38 HX of Motion Sickness No 06/09/25 08:38 HX of N/V After Surgery No 06/09/25 08:38 Non-Smoker Yes 06/09/25 08:38 Duration of Surgery greater No 06/09/25 08:38 than 60 minutes Number of Risk Factors 1 06/09/25 08:38 PONV Score Low Risk 06/09/25 08:38 Height & Weight Height & Weight: Anesthesia: Height & Weight Height 5 ft 9 in 06/12/25 09:19 Weight: 75.6 kg 06/12/25 09:19 Body Mass Index (BMI) 24.6 06/12/25 09:19 Respiratory Assessment Respiratory Assessment - supervisor shuttle veneering: Respiratory Tract Infection Hx - supervisor shuttle veneering Hx Respiratory Tract Infection No 06/09/25 08:38 STOP Sleep Apnea STOP Sleep Apnea - supervisor shuttle veneering: STOP Sleep Apnea - supervisor shuttle veneering Hx Hypertension Yes: CONTROLLED WITH MED 06/09/25 08:38 Hx Sleep Apnea No 06/09/25 08:38 CPAP BIPAP Do you snore loudly (louder No 06/09/25 08:38 than talking or can be heard Do you often feel tired/ No 06/09/25 08:38 fatigued/ sleepy during daytime? Has anyone observed you stop No 06/09/25 08:38 breathing during sleep? STOP Results Negative 06/09/25 08:38 QUESTION #5 FULL TEXT : Do you snore loudly (louder than talking or can be heard through closed doors)? Tobacco Use History Tobacco Use History - supervisor shuttle veneering: Tobacco Use History - supervisor shuttle veneering Tobacco Use Smoking Status Never smoker 06/09/25 08:38 Hx Tobacco Use No 06/09/25 08:38 Years Smoking Packs Smoked per Day Smoking Cessation Date was within the last 15 years Hx Smoking Cessation Date Hx Smoking Cessation Counseling Hematologic Medial History Hematologic Hx - supervisor shuttle veneering: Hematologic Medical Hx - slitter scorer Hx of Blood Transfusion No 06/09/25 08:38 Hx of Transfusion in last 3 No 06/09/25 08:38 Months Date of Last Transfusion (if within last 3 months) Ever experience any problems No 06/09/25 08:38 with transfusion(s)? Specify any problems Hx of Preganancy in last 3 N/A 06/09/25 08:38 Months Nurse Filling Out Transfusion DSCHRIBER 06/09/25 08:38 & Questions: Date: 06/09/25 06/09/25 08:38 Time: 08:40 06/09/25 08:38 Patient unable to answer at this time (ie. 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 History - supervisor shuttle veneering: /Reproductive Hx- supervisor shuttle veneering Hx Now No 06/09/25 08:38 Gestational Age (in weeks): EDC: Hx Hx Para Hx Section SAB No 06/09/25 08:38 Active Medications Active Medications: Current Medications Generic Name Dose Route Start Last Admin Trade Name Freq PRN Reason Stop Dose Admin Lactated Ringer's 1,000 mls @ 15 mls/hr 06/12/25 09:15 06/12/25 09:26 IV 15 mls/hr .Q48H CHATO Administration PFSH Medical History (Updated 06/09/25 @ 08:46 by Amita Locke) PONV (postoperative nausea and vomiting) Loss of hearing Wears glasses Alcohol use Thyroid disease Rheumatoid arthritis Gastric reflux Non-smoker Cardiology follow-up encounter History of echocardiogram History of fracture of arm TFCC (triangular fibrocartilage complex) injury Hypertension Osteoarthritis Chronic back pain Home Medications ?Medication ?Instructions ?Recorded ?Last Taken ?Type hydroxychloroquine 200 mg tablet 400 mg PO QHS RA 03/01/17 06/04/18 History leflunomide 20 mg tablet 20 mg PO QHS RA 03/01/17 06/04/18 History levothyroxine 125 mcg tablet 150 mcg PO DAILY@0600 11/10/18 06/12/25 History omeprazole 20 mg capsule,delayed 20 mg PO DAILY GERD 11/10/18 Unknown History release celecoxib 100 mg capsule (Celebrex) 100 mg PO BID 01/06/22 Unknown History amitriptyline 100 mg tablet 100 mg PO QHS 07/16/23 Unknown History cyclobenzaprine 5 mg tablet 5 mg PO QHS 07/16/23 Unknown History metoprolol succinate 100 mg 100 mg PO DAILY 07/16/23 06/12/25 History tablet,extended release 24 hr Allergy/AdvReac Type Severity Reaction Status Date / Time No Known Allergies Allergy Verified 06/12/25 09:19 Family History Father Myocardial infarction Hypertension CAD (coronary artery disease) PCI-Stent x 2 Unknown Arthritis High cholesterol Thyroid disorder Skin cancer Surgical History (Updated 06/09/25 @ 08:46 by Amita Locke) Hx of colonoscopy History of thumb surgery History of carpal tunnel surgery of right wrist History of lumbar surgery History of thyroidectomy History of herniorrhaphy Social History Smoking Status: Never smoker alcohol intake: never substance use type: does not use Review of Systems (Anesthesia) ROS Narrative System reviewed and no additional complaints, except as documented.
--- NOTE | 2025-06-12 09:50 | HP.PCM_ITS ---
[facility] - General General Date of Service: 06/12/25 HPI Narrative NICKIE BROWNE, is a 59 M who presents for screening colonoscopy. Patient last colonoscopy was 11/2017 had a fair prep recommended follow-up in 7 years for repeat. Patient denies any family history of colon cancer. Patient has bowel movement daily denies any blood. Patient denies any chronic abdominal pain/nausea/vomiting/reflux. [facility] Medical History (Updated 06/09/25 @ 08:46 by Amita Locke) PONV (postoperative nausea and vomiting) Loss of hearing Wears glasses Alcohol use Thyroid disease Rheumatoid arthritis Gastric reflux Non-smoker Cardiology follow-up encounter History of echocardiogram History of fracture of arm TFCC (triangular fibrocartilage complex) injury Hypertension Osteoarthritis Chronic back pain Home Medications ?Medication ?Instructions ?Recorded ?Last Taken ?Type hydroxychloroquine 200 mg tablet 400 mg PO QHS RA 0408/0906/04/18 History leflunomide 20 mg tablet 20 mg PO QHS RA 03/01/17 History levothyroxine 125 mcg tablet 150 mcg PO DAILY@0600 06/12/25 History omeprazole 20 mg capsule,delayed 20 mg PO DAILY GERD 1 01/11/18 Unknown History release celecoxib 100 mg capsule (Celebrex) 100 mg PO BID 12/24 03/14 Unknown History amitriptyline 100 mg tablet 100 mg PO QHS 07/16/23 Unk nown History cyclobenzaprine 5 mg tablet 5 mg PO QHS 07/16/23 Unkno wn History metoprolol succinate 100 mg 100 mg PO DAILY 07/16/23 0 06/12/25 History tablet,extended release 24 hr Allergy/AdvReac Type Severity Reaction Status Date / Time No Known Allergies Allergy Verified 06/12/25 09:19 Family History Father Myocardial infarction Hypertension CAD (coronary artery disease) PCI-Stent x 2 Unknown Arthritis High cholesterol Thyroid disorder Skin cancer Surgical History (Updated 06/09/25 @ 08:46 by Amita Locke) Hx of colonoscopy History of thumb surgery History of carpal tunnel surgery of right wrist History of lumbar surgery History of thyroidectomy History of herniorrhaphy Social History Smoking Status: Never smoker alcohol intake: never substance use type: does not use Past Medical/Surgical History Planned Operation Planned Operative Procedure(s): CSCOPE OA S.O.S: No Previous Hospitalizations/Surgeries HX Hospitalizations: No HX of Surgeries: COLONOSCOPY HERNIA REAPIR Any Problems With Anesthesia: Yes (N,V) You/Your Family Experience Fever (Hyperthermia) With Anes: No Cholinesterase deficiency: No Cardiovascular Hx Chest Pain within Last 2 months: No Hx of Irregular Heartbeat and/or Afib: No Hx Heart Attack: No Hx Congestive Heart Failure: No Hx Rheumatic Fever: No Hx Hypertension: Yes (CONTROLLED WITH MED) Hx Internal Defibrillator: No Hx Pacemaker: No Hx Cardiac Catheterization: No Hx Cardiac Surgery/Stents/Etc.: No Hx Stress Test: No (ECHO 2018) Hx Pain in Legs when Walking/Leg Cramps: No Respiratory Chronic Cough: No HX of Shortness of Breath: No Hoarseness: No Hx Chronic Obstructive Pulmonary Disease (COPD): No Hx Asthma: No Hx Emphysema: No Hx Sleep Apnea: No Hx Respiratory Tract Infection/Cold (presently): No Do You Snore Loudly (louder than talking or can be heard): No Do You Often Feel Tired/ Fatigued/ Sleepy Dring Daytime?: No Has Anyone Observed You Stop Breathing During Sleep?: No Result (for STOP score): Negative Hx Smoking: No Smoking Status: Never smoker Gastrointestinal Controlled With Meds: Yes (OMEPRAZOLE) Hx Gastrointestinal Disorders: No Hx Gastrointestinal Bleed: No Hx Ulcer: No Hx Hiatal Hernia: No Difficulty Chewing/Swallowing: No Special diet followed at home: No Hx Unplanned Weight Loss of 20#: No HX Unplanned Weight Gain of 20#: No Neurological Hx Seizures: No HX Syncope/Blackout Spells/Unconsciousness: No Hx Transient Ischemic Attacks (TIA): No Hx Multiple Sclerosis: No Hx Parkinson's Disease: No Hx Head/Neck Injury: No Hx Headaches: No Hx Back Injury/Pain: Yes Recent Onset of Speech Difficulty: No Restless Legs: No Does patient have nerve stimulator: No Blood Disorder Hx Leukemia: No Bleeding Tendencies: No Hx Deep Vein Thrombosis: No Hx High Cholesterol: No Blood Transmitted Disease: No Hx Hepatitis: No Hx Cirrhosis: No Hx Anemia: No Hx Blood Disorders: No Reproduction : No Genitourinary Hx Renal Disease: No Hx Dialysis: No Musculoskeletal Hx Arthritis: Yes Hx Rheumatoid Arthritis: No (PATIENT DENIES RA) Hx Gout: No Recent Onset of an Orthopedic Problem: No Endocrine Hx Diabetes: No Thyroid Disease: Yes (THROIDECTOMY) Hx Steroid Therapy: Yes (PRN PREDNISONE) Psycho/Social Hx Substance Use: No Hx Alcohol Use: Yes (RARELY) Hx Anxiety: No Hx Depression: No Mental Illness: No Hx Dementia: No Miscellaneous Hx Cancer: No Recent Exposure to Contagious Disease: No Hx of C-Diff: No Any Loose Teeth: No Allergies No Known Allergies Allergy (Verified 06/12/25 09:19) Maternal: Family History Father Myocardial infarction Hypertension CAD (coronary artery disease) Unknown Arthritis High cholesterol Thyroid disorder Skin cancer No pertinent history Paternal: Family History Father Myocardial infarction Hypertension CAD (coronary artery disease) Unknown Arthritis High cholesterol Thyroid disorder Skin cancer Heart Disease Discharge Is Pt Admitted From a Retirement, or a Assisted: No After D/C, Where Do you Plan to Go: Return Home Vital Signs Vital Signs Vital Signs: 06/12/25 09:19 06/12/25 09:19 06/12/25 09:35 Temperature 97.3 F L 97.3 F L Temperature Source Temporal Pulse Rate 102 H 102 H Respiratory Rate 16 16 Respiratory Pattern Normal Blood Pressure 154/94 H 154/94 H Blood Pressure Mean 114 Blood Pressure Source Monitor Blood Pressure Position Semi-Fowlers Blood Pressure Location Left Arm Pulse Ox 97 97 Oxygen Delivery Method Room Air Room Air Weight Weight: 166 lb 10.711 oz Body Mass Index (BMI) 24.6 Physical Exam Const alert, oriented x3 and no apparent distress HEENT normocephalic and head/scalp atraumatic Resp normal respiratory effort Cardio regular rate GI soft to palpation and non-tender; Negative for non-distended Palpation: Negative for guarding Extremity no clubbing, cyanosis or edema Skin no rashes or lesions noted Neuro CN's II-XII intact bilaterally Psych mental status grossly normal Assessment & Plan Assessment/Plan (1) Encounter for screening for malignant neoplasm of colon: Surgery Risks - Colonoscopy I discussed with the patient the risks of the procedure: Yes Risks Include but are not Limited To: Risks include but are not limited to: Bleeding, perforation requiring further surgery, inability to complete colonoscopy requiring barium enema.
--- NOTE | 2025-06-12 11:01 | OP.COLON_ITS ---
Patient Name: Clint Turcios Procedure Date: 06/12/2025 10:32 AM Date of : 1965 Age: 59 Procedure: Colonoscopy Indications: Screening for colorectal malignant neoplasm Providers: Francie Cedeño MD Referring MD: Evelia Bains Medicines: Monitored Anesthesia Care Patient Profile: This is a 59 year old male. Last Colonoscopy: November 2017. Complications: No immediate complications. Procedure: Pre-Anesthesia Assessment: - Prior to the procedure, a History and Physical was performed, and patient medications and allergies were reviewed. The patient's tolerance of previous anesthesia was also reviewed. The risks and benefits of the procedure and the sedation options and risks were discussed with the patient. All questions were answered, and informed consent was obtained. Prior Anticoagulants: The patient has taken no anticoagulant or antiplatelet agents. ASA Grade Assessment: Per anesthesia. After reviewing the risks and benefits, the patient was deemed in satisfactory condition to undergo the procedure. After I obtained informed consent, the scope was passed under direct vision. Throughout the procedure, the patient's blood pressure, pulse, and oxygen saturations were monitored continuously. The pediatric colonoscope was introduced through the anus and advanced to the cecum, identified by the appendiceal orifice, ileocecal valve and palpation. The colonoscopy was performed without difficulty. The patient tolerated the procedure well. The quality of the bowel preparation was good. Scope In: 10:43:16 AM Scope Withdrawal Time 0 hours 6 minutes 19 seconds Scope Out: 10:56:13 AM Total Procedure Duration Time 0 hours 12 minutes 57 seconds Findings: The perianal and digital rectal examinations were normal. Non-bleeding internal hemorrhoids were found. The hemorrhoids were Grade I (internal hemorrhoids that do not prolapse). The entire examined colon appeared normal. Impression: - Non-bleeding internal hemorrhoids. - The entire examined colon is normal. - No specimens collected. Recommendation: - Discharge patient to home. - Resume previous diet. - Continue present medications. - Repeat colonoscopy in 10 years for screening purposes. Procedure Code(s): --- Professional --- G0121, PT, Colorectal cancer screening; colonoscopy on individual not meeting criteria for high risk Diagnosis Code(s): --- Professional --- Z12.11, Encounter for screening for malignant neoplasm of colon K64.0, First degree hemorrhoids CPT copyright 2021 [employer]. All rights reserved. The codes documented in this report are preliminary and upon recreational counselor review may be revised to meet current compliance requirements. MD Francie Bajwa MD 06/12/2025 11:01:31 AM This report has been signed electronically. Number of Addenda: 0 Note Initiated On: 06/12/2025 10:32 AM
--- NOTE | 2025-06-12 11:01 | OP.CCLET_ITS ---
06/12/[address] [facility] [address] [place] [address] Re : Colonoscopy procedure for Clint Turcios Dear Dr. Bains This procedure was performed on Thursday, June 12, 2025. My impressions and recommendations are as follows: Impressions : - Non-bleeding internal hemorrhoids. - The entire examined colon is normal. - No specimens collected. Recommendations : - Discharge patient to home. - Resume previous diet. - Continue present medications. - Repeat colonoscopy in 10 years for screening purposes. My findings are described in the full procedure note, which is enclosed. If I can be of further assistance, please feel free to contact me at Doctor phone number(s): , Work: . Sincerely, MD Francie Bajwa MD 06/12/2025 11:01:31 AM This report has been signed electronically.
--- NOTE | 2025-06-12 11:06 | PCM.POST.ANE ---
Anesthesia: Postop Eval I Current Vital Signs Temperature: 97.9 F Pulse Rate: 77 Blood Pressure: 133/92 Respiratory Rate: 18 Pulse Ox: 98 Assessment Airway patent: Yes Spontaneous unlabored respirations: Yes nausea: No Vomiting: No Anesthesia Complication: No Fluid Hydration Crystalloid volume administer (ml): 500 Total IV fluid infused: 500 Progress Note Anesthesia document: Postop Eval 1 completed: Yes
--- NOTE | 2025-06-12 13:45 | PCM.POSTANE2 ---
Anesthesia Postop Eval I Sum Postop Eval Completion status Anesthesia document: Postop Eval 1 completed: Yes Anesthesia Postop Eval I Summary Anesthesia Postop Eval I Summary: Anesthesia Postop Eval I: Assessment Summary Airway patent Yes 06/12/25 11:07 [email or web address] Spontaneous unlabored Yes 06/12/25 11:07 [email or web address] respirations Mental status nausea No 06/12/25 11:07 [email or web address] Vomiting No 06/12/25 11:07 [email or web address] Anesthesia Postop Eval I: Fluid Summary Crystalloid volume administer 500 06/12/25 11:07 [email or web address] (ml) Colloids volume administered ( ml) Blood Product volume administered (ml) Total IV fluid infused 500 06/12/25 11:07 [email or web address] Anesthesia Postop Eval I: Summary Notes Anesthesia Complication No 06/12/25 11:07 [email or web address] Anesthesia Complication Comment: Post-operative progress note Anesthesia: Postop Eval II Evaluation Mental status: Awake and Calm Pain Level: 0 nausea: No Vomiting: No Complications Anesthesia Complication: No
== END 2025-06-12 11:43 | disposition home or self-care (01) ==
LOC: EN 09:04 → AC 09:09
PROVIDERS: PCP Family Medicine; Referring Provider Family Medicine; Visit Provider Surgery
PROC: 0DJD8ZZ Inspection of Lower Intestinal Tract, Via Natural or Artificial Opening Endoscopic (ICD-10-PCS; CPT 45378; principal; 2025-06-12 10:40)
DX: Z12.11 Encounter for screening for malignant neoplasm of colon (principal); M06.9 Rheumatoid arthritis, unspecified; M54.9 Dorsalgia, unspecified; G89.29 Other chronic pain; K64.0 First degree hemorrhoids; I10 Essential (primary) hypertension; E07.9 Disorder of thyroid, unspecified; Z79.890 Hormone replacement therapy; Z79.899 Other long term (current) drug therapy
CPT/HCPCS: 45378; J2405

== ENCOUNTER → 2025-07-26 | Outpatient (CLI) | payer OTHER, SELFPAY ==
[2025-07-26 12:34] LABS: Hematocrit 45.7 % (40-54); Hemoglobin 15.1 g/dL (13.0-16.5); Immature Granulocytes Count 0.020 X10^3/uL (0.0-0.0); Mean Corp Hgb Conc 33.0 g/dL (32-36); Mean Corpuscular Volume 90.1 fL (80-94); Mean Platelet Vol. 10.5 fl (6.2-12.0); NRBC Flagged by Analyzer 0 % (0-5); Platelet Count 272 K/mm3 (150-450); RBC Distribution Width CV 13.0 % (11.6-14.6); RBC Distribution Width SD 42.5 fl (35.1-43.9); Red Blood Count 5.07 M/mm3 (4.6-6.2); White Blood Count 8.3 K/mm3 (4.4-11.0)
[2025-07-26 13:10] LABS: AST(SGOT) 43 U/L (<=37); Alanine Aminotransfer ALT/SGPT 31 U/L (<=46); Albumin, Serum 4.4 g/dL (3.5-5.0); Alkaline Phosphatase 87 U/L (40-129); Bilirubin, Direct 0.17 mg/dL (0.00-0.30); Globulin 3.0 g/dL (2.2-4.2)
[2025-07-26 13:22] LABS: CRP < 3.00 mg/L (0.0-3.0)
== END | disposition home or self-care (01) ==
LOC: MTLAB 10:24
PROVIDERS: PCP Family Medicine; Referring Provider Internal Medicine Rheumatology; Visit Provider Internal Medicine Rheumatology
DX: M06.4 Inflammatory polyarthropathy (principal); Z79.899 Other long term (current) drug therapy
CPT/HCPCS: 36415; 80076; 82565; 85025; 85652; 86140

== ENCOUNTER → 2025-10-28 | Outpatient (CLI) | payer OTHER, SELFPAY ==
--- OUTSIDE RECORDS SUMMARY | 2025-10-28 10:00 | XMS RPT_ITS | CCD ---
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 Evelia Bains Primary Care Provider [phone] Dr. Evelia Bains Referring Provider KEERTHI Edward Attending Provider KEERTHI Edward Referring Provider KEERTHI Edward Other Provider Dr. Edouard Rawls Attending Provider Dr. Grzegorz Laguna Attending Provider Unavailable Primary Care Provider Unavailabl e Unavailable Primary Care Provider Unavailabl e Dr. Evelia Bains Primary Care Provider Dr. Evelia Bains Referring Provider Dr. Shantell Zhang Attending Provider Dr. Evelia Bains MD Primary Care Provider [phone] Dr. Fermin Alfred DO Attending Provider Dr. Fermin Alfred DO Referring Provider DELROY SUAREZ Attending Provider DELROY SUAREZ Referring Provider Nara RAMOS, Dr. Altamirano Primary Care Provider Nara RAMOS, Dr. Altamirano Referring Provider Gala RAMOS, Dr. Marmolejo Attending Provider Gala RAMOS, Dr. Marmolejo Other Provider Royce Soto MD Attending Provider [phone] Royce Soto MD Referring Provider [phone] Aubrie VALENZUELA, Dr. Christensen Attending Provider [phone] Aubrie VALENZUELA, Dr. Christensen Referring Provider [facility] [place] [facility] Unavailable Royce Soto Attending Unavailable Royce Soto Referring Unavailable [facility] [place] [facility] Un[facility] [place] Referring Unavailable Robotham, Francie Attending Unavailable [facility] [place] Referring Unavailable [facility] [place] [facility] Unavailable RobotFrancie doan Consulting Unavailable RobothamJoseFrancie Attending Unavailable [facility] [place] Referring Unavailable [facility] [place] [facility] Unavailable Royce Soto Attending Unavailable [facility] [place] [facility] Unavailable Fermin Alfred Attending Unavailable Fermin Alfred Referring Unavailable [facility] [place] [facility] Unavailable KAITY, PABLITO Attending Unavailable PEIGHPABLITO Will Referring Unavailable [facility] Primary [facility] Unavailable Fermin Alfred Referring Unavailable Fermin Alfred Attending Unavailable PEIGHTPABLITO Attending Unavailable PEIGHTPABLITO Referring Unavailable [facility] Unavailable Medications Current Medications Medication Drug Class(es) Dates Sig (Normalized) Sig (Original) acetaminophen 500 mg oral tablet (20 sources) Start: 11-09-2018 take 2 tablets by mouth every eight hours as needed for pain acetaminophen (TYLENOL) 500 MG tablet Take 2 Tablets by mouth every 8 hours as needed for Pain or Fever. 30 Tablet 3 11/09/2018 Active Start: 08-28-2018 End: 06-09-2025 take 2 tablets by mouth every four hours as needed for pain Acetaminophen 325 MG tablet Discontinued 650 mg PO EVERY 4 HOURS NEEDED as needed for Mild-Moderate Pain (-/) 0 August 28, 2018 12:00am June 09, 2025 8:37am Start: 08-28-2018 take 650 mg by mouth every four hours as needed Acetaminophen Active 650 MG PO EVERY 4 HOURS NEEDED August 28, 2018 12:00am amitriptyline hydrochloride 100 mg oral tablet (10 sources) Tricyclic Antidepressant Start: 07-16-2023 take 1 tablet by mouth at bedtime Amitriptyline 100 mg tablet Active 100 mg PO AT BEDTIME July 16, 2023 12:00am take 1 tablet by mouth at bedtim e AMITRIPTYLINE HCL 100 MG TABS 1 tablet by mouth at bedtime amitriptyline [id number] Melia Allison ascorbic acid 60 mg / beta carotene 5000 unt / copper sulfate 40 mg / dl-alpha tocopheryl acetate 30 unt / sodium selenite 0.04 mg / zinc oxide 40 mg oral tablet (3 sources) Vitamin C Start: 10-22-2017 Multiple Vitamins-Minerals (MULTIVITAMIN ADULT) TABS MULTIPLE VITAMINS-MINERALSMULTIVITAMIN ADULT TABS MULTIPLE VITAMINS-MINERALS [id number] María [id number] ([id number] 0 10/22/2017 Active celecoxib 100 mg oral capsule (20 sources) Nonsteroidal Anti-inflammato ry Drug Start: 01-06-2022 take 1 capsule by mouth twice daily Celecoxib (Celebrex) 100 mg capsule Active 100 mg PO TWICE A DAY January 06, 2022 1:00am cyclobenzaprine hydrochloride 5 mg oral tablet (20 sources) Muscle Relaxant Start: 07-16-2023 take 1 tablet by mouth at bedtime Cyclobenzaprine 5 mg tablet Active 5 mg PO AT BEDTIME July 16, 2023 12:00am Start: 06-05-2018 End: 07-13-2018 Cyclobenzaprine 10 MG tablet Discontinued 10 mg PO NEEDED as needed for Muscle Spasm June 05, 2018 12:00am July 13, 2018 2:40pm escitalopram 10 mg oral tablet (20 sources) Serotonin Reuptake Inhibitor Start: 07-14-2025 take 1 tablet by mouth once daily Escitalopram Oxalate 10 mg tablet Active 10 mg PO daily July 14, 2025 12:00am Start: 01-11-2019 End: 12-12-2019 take 1 tablet by mouth once daily Escitalopram Oxalate (Lexapro) 10 mg tablet Discontinued 10 mg PO DAILY January 11, 2019 1:00am December 12, 2019 2:22pm hydroxychloroquine sulfate 200 mg oral tablet (20 sources) Antimalarial, Antirheumatic Agent Start: 03-01-2017 take 2 tablets by mouth at bedtime Hydroxychloroquine 200 MG tablet Active 400 mg PO AT BEDTIME March 01, 2017 12:00am RA Start: 03-01-2017 take 400 mg by mouth at bedtime Hydroxychloroquine Active 400 MG PO AT BEDTIME March 01, 2017 12:00am leflunomide 20 mg oral tablet (20 sources) Antirheumatic Agent Start: 03-01-2017 take 1 tablet by mouth at bedtime Leflunomide 20 MG tablet Active 20 mg PO AT BEDTIME March 01, 2017 12:00am RA levothyroxine sodium 0.125 mg oral tablet (20 sources) l-Thyroxine Start: 11-10-2018 Levothyroxine 125 MCG tablet Active 150 ug PO DAILY@0600 November 11, 2018 12:56am Start: 11-10-2018 take 150 ug by mouth once daily Levothyroxine Active 150 MCG PO DAILY@0600 November 11, 2018 12:56am Start: 08-28-2018 End: 11-10-2018 take 1 tablet by mouth once daily Levothyroxine 125 MCG tablet Discontinued 125 ug PO DAILY@0600 30 30 3 August 28, 2018 12:00am December 25, 2018 1:00am November 11, 2018 12:56am omeprazole 20 mg delayed release oral capsule (20 sources) Proton Pump Inhibitor Start: 11-10-2018 take 1 capsule by mouth once daily Omeprazole 20 MG capsule,delayed release(DR/EC) Active 20 mg PO DAILY November 10, 2018 1:00am GERD Start: 12-04-2017 End: 07-13-2018 take 1 capsule by mouth at bedtime Omeprazole 20 MG capsule Discontinued 20 mg PO AT BEDTIME December 04, 2017 1:00am July 13, 2018 2:43pm HEARTBURN Omeprazole (PRIL OSEC ORAL) omeprazole 0 Active rosuvastatin calcium 5 mg oral tablet (2 sources) HMG-CoA Reductase Inhibitor Start: 07-14-2025 take 1 tablet by mouth once daily Rosuvastatin 5 mg tablet Active 5 mg PO daily July 14, 2025 12:00am temazepam 30 mg oral capsule (3 sources) Benzodiazepine Start: 10-16-2018 take 1 capsule by mouth at bedtime temazepam (RESTORIL) 30 MG capsule Take 30 mg by mouth at bedtime. 0 10/16/2018 Active Completed/Discontinued Medications Medication Drug Class(es) Dates Sig (Normalized) Sig (Original) amoxicillin 875 mg / clavulanate 125 mg oral tablet (17 sources) Penicillin-class Antibacterial Start: 12-12-2019 End: 09-30-2021 Amoxicillin-Pot Clavulanate 875-125 mg tablet Discontinued 1 {tbl} PO TWICE A DAY December 12, 2019 1:00am September 30, 2021 2:59pm Start: 12-12-2019 End: 09-30-2021 take 1 tablet by mouth twice daily Amoxicillin-Pot Clavulanate Discontinued 1 TABLET PO TWICE A DAY December 12, 2019 1:00am September 30, 2021 2:59pm Cranberry (17 sources) Non-Standardized Food Allergenic Extract, Non-Standardized Plant Allergenic Extract Start: 08-26-2018 End: 12-12-2019 take 500 mg by mouth once daily Cranberry Discontinued 500 MG PO DAILY August 26, 2018 9:57am December 12, 2019 2:22pm Start: 08-26-2018 End: 12-12-2019 take 1 capsule by mouth once daily Cranberry 500 MG capsule Discontinued 500 mg PO DAILY August 26, 2018 12:00am December 12, 2019 2:22pm Start: 08-26-2018 End: 12-12-2019 take 500 mg by mouth once daily Cranberry Discontinued 500 MG PO DAILY August 25, 2018 11:00pm December 12, 2019 1:22pm Start: 08-26-2018 End: 12-12-2019 take 500 mg by mouth once daily Cranberry Discontinued 500 MG PO DAILY August 26, 2018 12:00am December 12, 2019 2:22pm diclofenac sodium 0.01 mg/mg topical gel (17 sources) Nonsteroidal Anti-inflammatory Drug Start: 06-09-2018 End: 07-13-2018 apply 2 g topically once Diclofenac Sodium (Voltaren) 1 % gel Discontinued 2 g TOPICAL ONCE June 09, 2018 12:00am July 13, 2018 2:41pm Start: 06-09-2018 End: 07-13-2018 apply 2 g topically once Diclofenac Sodium (Voltaren) 1 % gel Discontinued 2 GM TOPICAL ONCE June 09, 2018 12:00am July 13, 2018 2:41pm folic acid 1 mg oral tablet (18 sources) Start: 07-18-2016 End: 03-01-2017 take 1 tablet by mouth once daily Folic Acid 1 MG tablet Discontinued 1 mg PO DAILY@0800 July 18, 2016 12:00am March 01, 2017 12:49pm Start: 06-08-2014 FOLIC ACID TAB S as directed FOLIC ACID TABS [id number] Omi Дмитрий Grider glucosamine sulfate 500 mg oral tablet (17 sources) Start: 07-13-2018 End: 12-12-2019 take 2 tablets by mouth once daily Glucosamine Sulfate (Glucosamine) 500 mg tablet Discontinued 1000 mg PO daily July 13, 2018 12:00am December 12, 2019 2:22pm ibuprofen 400 mg oral tablet (20 sources) Nonsteroidal Anti-inflammatory Drug Start: 11-09-2018 take 1 tablet by mouth every eight hours as needed for pain ibuprofen (MOTRIN) 800 MG tablet Take 1 Tablet by mouth every 8 hours as needed for Pain. 30 Tablet 3 11/09/2018 Active Start: 08-28-2018 End: 01-06-2022 take 1 tablet by mouth every six hours as needed for pain Ibuprofen 400 MG tablet Discontinued 400 mg PO EVERY 6 HOURS as needed for Pain April 25, 2019 12:24pm January 06, 2022 2:15pm loratadine 10 mg oral tablet (17 sources) Start: 07-13-2018 End: 12-12-2019 take 1 tablet by mouth once daily Loratadine (Claritin) 10 mg tablet Discontinued 10 mg PO daily July 13, 2018 12:00am December 12, 2019 2:21pm meloxicam 15 mg oral tablet (18 sources) Nonsteroidal Anti-inflammatory Drug Start: 06-08-2014 End: 01-06-2022 take 1 tablet by mouth once daily Meloxicam 15 MG tablet Discontinued 15 mg PO DAILY July 18, 2016 12:00am January 06, 2022 2:15pm PAIN methotrexate 2.5 mg oral tablet (17 sources) Folate Analog Metabolic Inhibitor Start: 07-18-2016 End: 03-01-2017 take 1 tablet by mouth once daily Methotrexate Sodium 2.5 MG tablet Discontinued 2.5 mg PO DAILY July 18, 2016 12:00am March 01, 2017 12:49pm methylPREDNISolone 4 mg oral tablet (17 sources) Corticosteroid Start: 01-06-2022 End: 01-15-2022 take 1 tablet by mouth once daily Methylprednisolone (Medrol (Kevin)) 4 mg tablets,dose pack Discontinued 4 mg PO DAILY January 06, 2022 1:00am January 15, 2022 4:50pm one tab PO as directed 24 hr metoprolol succinate 50 mg extended release oral tablet (20 sources) beta-Adrenergic Papo Start: 01-11-2019 End: 12-12-2019 take 1 tablet by mouth once daily Metoprolol Succinate 50 mg tablet extended release 24 hr Discontinued 50 mg PO DAILY January 11, 2019 1:00am December 12, 2019 2:22pm Start: 10-23-2018 take 1 tablet by milan th once daily Metoprolol Succinate 100 mg tablet extended release 24 hr Active 100 mg PO DAILY July 16, 2023 12:00am Start: 07-13-2018 End: 08-28-2018 take 1 tablet by mouth once daily Metoprolol Tartrate 50 mg tablet Discontinued 50 mg PO daily July 13, 2018 12:00am August 28, 2018 9:15am mometasone furoate 0.05 mg/actuat metered dose nasal spray (20 sources) Corticosteroid Start: 07-13-2018 End: 12-12-2019 Mometasone (Nasonex) 50 mcg/actuation spray,non-aerosol Discontinued 2 NMA INTRANASAL daily July 13, 2018 12:00am December 12, 2019 2:21pm Start: 07-13-2018 End: 12-12-2019 Mometasone (Nasonex) 50 mcg/ actuation spray,non-aerosol Discontinued 2 SPRAY INTRANASAL daily July 13, 2018 12:00am December 12, 2019 2:21pm Start: 05-19-2011 mometasone (NA SONEX) 50 MCG/ACT nasal spray Instill into each nostril. 0 05/19/2011 Active Multivitamin 1 EACH tablet (5 sources) Start: 08-26-2018 End: 12-12-2019 Multivitamin 1 EACH tablet Discontinued 1 NMA PO DAILY August 26, 2018 12:00am December 12, 2019 2:21pm Multivitamin preparation (12 sources) Start: 08-26-2018 End: 12-12-2019 Multivitamin Discontinued 1 EACH PO DAILY August 26, 2018 9:57am December 12, 2019 2:21pm Start: 08-26-2018 End: 12-12-2019 Multivitamin Discontinued 1 EACH PO DAILY August 25, 2018 11:00pm December 12, 2019 1:21pm Start: 08-26-2018 End: 12-12-2019 Multivitamin Discontinued 1 EACH PO DAILY August 26, 2018 12:00am December 12, 2019 2:21pm predniSONE 50 mg oral tablet (20 sources) Corticosteroid Start: 07-22-2022 End: 07-16-2023 take 1 tablet by mouth once daily Prednisone 50 mg tablet Discontinued 50 mg PO DAILY 5 5 0 July 22, 2022 12:00am July 16, 2023 2:42pm Start: 01-27-2020 End: 09-30-2021 Prednisone 10 mg tablet Disc ontinued 0 PO .COMPLEX January 27, 2020 1:00am September 30, 2021 2:59pm take tabs PO as directed; 6 tabs x 1 day, 5 tabs x 1 day, 4 tabs x 2 days, 3 tabs x 2, 2 tabs x 2, 1 tab x 2 - divided morning and lunch. Start: 01-27-2020 End: 09-30-2021 Prednisone Discontinued 0 PO .COMPLEX January 27, 2020 1:00am September 30, 2021 2:59pm take tabs PO as directed; 6 tabs x 1 day, 5 tabs x 1 day, 4 tabs x 2 days, 3 tabs x 2, 2 tabs x 2, 1 tab x 2 - divided morning and lunch. Start: 03-01-2017 End: 07-13-2018 take 1 tablet by mouth once daily as needed Prednisone 5 MG tablet Discontinued 5 mg PO DAILY as needed for FLARE UPS March 01, 2017 12:00am July 13, 2018 2:48pm Start: 06-08-2014 PREDNISONE 10 MG TABS as directed PREDNISONE [id number] Omi Grider triamcinolone acetonide 40 mg/ml injectable suspension (5 sources) Corticosteroid Start: 01-15-2022 End: 01-15-2022 Kenalog (triamcinolone acetonide) 40 mg/mL suspension for injection Discontinued 20 MG INTRAARTIC ONCE 0.5 January 15, 2022 4:40pm January 15, 2022 5:07pm Start: 02-28-2019 End: 02-28-2019 Kenalog (triamcinolone aceto nide) 40 mg/mL suspension for injection Discontinued 20 MG INTRAARTIC ONCE 0.5 February 28, 2019 10:06am February 28, 2019 11:31am Start: 06-11-2018 End: 06-11-2018 Kenalog (triamcinolone aceto nide) 10 mg/mL suspension for injection Discontinued 0.5 MG TENDON ONCE 0.05 June 11, 2018 8:45am June 11, 2018 8:58am Start: 02-09-2018 End: 02-09-2018 Kenalog (triamcinolone aceto nide) 10 mg/mL suspension for injection Discontinued 2 MG INTRAARTIC ONCE 0.2 February 09, 2018 9:44am February 09, 2018 9:50am Problems Active Problems Problem Classification Problem Date Documented Date Episodic/Chronic Cardiac dysrhythmias (17 sources) Palpitations - rapid; Translations: [Palpitations] 08-27-2018 Episodic Complications of surgical procedures or medical care (7 sources) Seroma; Translations: [Seroma] 07-16-2023 Episodic Fracture of upper limb (20 sources) Fracture of distal end of radius; Translations: [Unspecified fracture of the lower end of left radius, subsequent encounter for closed fracture with malunion] Onset: 2 01-31-2022 Episodic Joint disorders and dislocations; trauma-related (1 source) Derangement of knee; Translations: [Unspecified internal derangement of knee] Onset: 4 06-09-2014 Chronic Osteoarthritis (9 sources) Unilateral primary osteoarthritis of first carpometacarpal joint, left hand; Translations: [Osteoarthrosis, localized, primary, hand] Onset: 2 02-12-2022 Chronic Other endocrine disorders (1 source) Endocrine disorder, unspecified; Translations: [Endocrine disorder, unspecified] Onset: 8 Episodic Other injuries and conditions due to external causes (17 sources) Injury to triangular fibrocartilage of wrist joint; Translations: [Other specified injuries of unspecified wrist, hand and finger(s), initial encounter] 01-15-2022 Episodic Other injuries and conditions due to external causes (1 source) Other specified injuries of unspecified wrist, hand and finger(s), initial encounter; Translations: [Articular cartilage disorder, forearm] Episodic Other lower respiratory disease (17 sources) Dyspnea; Translations: [Shortness of breath] 01-11-2019 Episodic Other nervous system disorders (20 sources) Lesion of ulnar nerve, left upper limb; Translations: [Lesion of ulnar nerve] Onset: 2 01-31-2022 Chronic Other non-traumatic joint disorders (17 sources) Pain in wrist; Translations: [Pain in left wrist] 01-06-2022 Episodic Other non-traumatic joint disorders (1 source) Pain in left wrist; Translations: [Pain in joint, forearm] Episodic Other non-traumatic joint disorders (6 sources) Hip pain; Translations: [Pain in right hip] 01-28-2024 Episodic Other non-traumatic joint disorders (1 source) Pain in right hip; Translations: [Pain in joint, pelvic region and thigh] 01-28-2024 Episodic Other screening for suspected conditions (not mental disorders or infectious disease) (20 sources) Thyroid function tests abnormal; Translations: [Abnormal results of thyroid function studies] Onset: 5 08-27-2018 Episodic Other skin disorders (7 sources) Localized swelling, mass and lump, left upper limb; Translations: [Mass of left elbow] 07-16-2023 Episodic Rheumatoid arthritis and related disease (13 sources) Rheumatoid arthritis; Translations: [Rheumatoid arthritis, unspecified] Onset: 5 Chronic Spondylosis; intervertebral disc disorders; other back problems (15 sources) Backache; Translations: [Dorsalgia, unspecified] 07-30-2022 Episodic Sprains and strains (9 sources) Sprain of metacarpophalangeal joint of right index finger, initial encounter; Translations: [Sprain of unspecified rotator cuff capsule, initial encounter] Onset: 5 06-18-2016 Episodic Syncope (17 sources) Near syncope; Translations: [Syncope and collapse] 08-27-2018 Episodic Thyroid disorders (20 sources) Thyrotoxicosis, unspecified without thyrotoxic crisis or storm; Translations: [Multinodular goiter] Onset: 8 10-26-2018 Chronic Comment on above: No issues with hormo ian surrounding male/female reproductive.No headaches, no flushing.Epi and norepi not extreme values.TSH values minimal suppression one value. 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; 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] Onset: 10-06-2018 11-01-2018 Episodic Other connective tissue disease (4 sources) Hand pain; Translations: [Other affections of shoulder region, not elsewhere classified] Onset: 06-08-2014 06-16-2016 Episodic Other non-traumatic joint disorders (2 sources) Pain in joint, shoulder region; Translations: [Knee pain] Onset: 06-08-2014 03-29-2015 Episodic Other skin disorders (3 sources) Mass of neck; Translations: [Localized swelling, mass and lump, neck] Onset: 10-21-2018 10-26-2018 Episodic Unclassified (3 sources) Problem Results Test Name Value Interpretation Reference Range Facility Absolute lymphocyte countOrd ered By: Fermin Alfred on 07-26-2025 Lymphocytes Auto (Unsp spec) [#/Vol] 1.41 10*3/uL 0.83-4.51 [facility] Absolute neutrophil countOrd ered By: Fermin Alfred on 07-26-2025 Neutrophils (Bld) [#/Vol] 5.5 10*3/uL 2.0-7.7 [facility] Automated lymphocyte count a s percentage of total leukocytesOrdered By: Fermin Alfred on 07-26-2025 Lymphocytes/100 WBC Auto (Unsp spec) 17.0 % Low 19-41 [facility] Basophil percentageOrdered B y: Fermin Alfred on 07-26-2025 Basophils/100 WBC (Bld) 1.0 % 0-1 [facility] Bilirubin directOrdered By: Fermin Alfred on 07-26-2025 Bilirubin.direct [Mass/Vol] 0.17 mg/dL 0.00-0.30 [facility] Bilirubin, totalOrdered By: Fermin Alfred on 07-26-2025 Bilirubin [Mass/Vol] 0.35 mg/dL 0.00-1.30 [facility] CBC W/Diff, Automatedon Absolute Lymph 1.41 X10 3/uL Normal 0.83-4.51 [facility] Comment on above: Performed By: #### L 500.3400, L501.1105, L101.9900, L100.0100, L501.6710 ####[facility] [address] [place], [address] Absolute Neut 5.5 X10 3/uL Normal 2.0-7.7 [facility] Comment on above: Performed By: #### L 500.3400, L501.1105, L101.9900, L100.0100, L501.6710 ####[facility] [address] [place], [address] Basophils/100 WBC (Bld) 1.0 % Normal 0-1 [facility] Comment on above: Performed By: #### L 500.3400, L501.1105, L101.9900, L100.0100, L501.6710 ####[facility] [address] [place], [address] Eosinophils/100 WBC (Bld) 1.5 % Normal 0-5 [facility] Comment on above: Performed By: #### L 500.3400, L501.1105, L101.9900, L100.0100, L501.6710 ####[facility] [address] [place], [address] Erythrocyte distribution width (RBC) [Ratio] 13.0 % Normal 11.6-14.6 [facility] Comment on above: Performed By: #### L 500.3400, L501.1105, L101.9900, L100.0100, L501.6710 ####[facility] [address] [place], [address] Hematocrit (Bld) [Volume fraction] 45.7 % Normal 40-54 [facility] Comment on above: Performed By: #### L 500.3400, L501.1105, L101.9900, L100.0100, L501.6710 ####[facility] [address] [place], [address] Hemoglobin (Bld) [Mass/Vol] 15.1 g/dL Normal 13.0-16.5 [facility] Comment on above: Performed By: #### L 500.3400, L501.1105, L101.9900, L100.0100, L501.6710 ####[facility] [address] [place], [address] IG% 0.200 Normal 0.0-0.9 [facility] Comment on above: Result Comment: IG% - Immature Granulocytes (promyelocytes, myelocytes and metamyelocytes) > 1% indicates that a LEFT SHIFT is Present. Performed By: #### L 500.3400, L501.1105, L101.9900, L100.0100, L501.6710 ####[facility] [address] [place], [address] Lymphocytes/100 WBC (Bld) 17.0 % Low 19-41 [facility] Comment on above: Performed By: #### L 500.3400, L501.1105, L101.9900, L100.0100, L501.6710 ####[facility] [address] [place], [address] MCH (RBC) [Entitic mass] 29.8 pg Normal 27.0-32.0 [facility] Comment on above: Performed By: #### L 500.3400, L501.1105, L101.9900, L100.0100, L501.6710 ####[facility] [address] [place], [address] MCHC (RBC) [Mass/Vol] 33.0 g/dL Normal 32-36 [facility] Comment on above: Performed By: #### L 500.3400, L501.1105, L101.9900, L100.0100, L501.6710 ####[facility] [address] [place], [address] MCV (RBC) [Entitic vol] 90.1 fL Normal 80-94 [facility] Comment on above: Performed By: #### L 500.3400, L501.1105, L101.9900, L100.0100, L501.6710 ####[facility] [address] [place], [address] Monocytes/100 WBC (Bld) 14.0 % High 0-10 [facility] Comment on above: Performed By: #### L 500.3400, L501.1105, L101.9900, L100.0100, L501.6710 ####[facility] [address] [place], [address] Neutrophils/100 WBC (Bld) 66.3 % Normal 47-70 [facility] Comment on above: Performed By: #### L 500.3400, L501.1105, L101.9900, L100.0100, L501.6710 ####[facility] [address] [place], [address] Nucleated RBC (Bld) [#/Vol] 0 10*3/uL Normal 0-5 [facility] Comment on above: Performed By: #### L 500.3400, L501.1105, L101.9900, L100.0100, L501.6710 ####[facility] [address] [place], [address] Platelet mean volume (Bld) [Entitic vol] 10.5 fL Normal 6.2-12.0 [facility] Comment on above: Performed By: #### L 500.3400, L501.1105, L101.9900, L100.0100, L501.6710 ####[facility] [address] [place], [address] Platelets (Bld) [#/Vol] 272 10*3/uL Normal 150-450 [facility] Comment on above: Performed By: #### L 500.3400, L501.1105, L101.9900, L100.0100, L501.6710 ####[facility] [address] [place], [address] RBC (Bld) [#/Vol] 5.07 10*6/uL Normal 4.6-6.[address] [facility] Comment on above: Performed By: #### L 500.3400, L501.1105, L101.9900, L100.0100, L501.6710 ####[facility] [address] [place], [address] RDW SD 42.5 fl Normal 35.1-43.9 [facility] Comment on above: Performed By: #### L 500.3400, L501.1105, L101.9900, L100.0100, L501.6710 ####[facility] [address] [place], [address] WBC (Bld) [#/Vol] 8.3 10*3/uL Normal 4.4-11.0 [facility] Comment on above: Performed By: #### L 500.3400, L501.1105, L101.9900, L100.0100, L501.6710 ####[facility] [address] [place], [place], [id number] CRPon 07-26-2025 C-REACTIVE PROT < 3.00 Normal 0.0-3.0 [facility] Comment on above: Performed By: #### L 500.3400, L501.1105, L101.9900, L100.0100, L501.6710 ####[facility] [address] [place], [place], [id number] Eosinophil percentageOrdered By: Fermin Alfred on 07-26-2025 Eosinophils/100 WBC (Bld) 1.5 % 0-5 [facility] Erythrocyte Sed Rateon 07-26 SED RATE 8 mm/hr Normal 0-20 [facility] Comment on above: Performed By: #### L 500.3400, L501.1105, L101.9900, L100.0100, L501.6710 ####[facility] [address] [place], [place], [id number] Erythrocyte distribution wid th ratioOrdered By: Fermin Alfred on 07-26-2025 Erythrocyte distribution width (RBC) [Ratio] 13.0 % 11.6-14.6 [facility] Erythrocyte distribution wid th standard deviationOrdered By: Fermin Alfred on 07-26-2025 Erythrocyte distribution width (RBC) [Ratio] 42.5 fl 35.1-43.9 [facility] Erythrocyte sedimentation ra teOrdered By: Fermin Alfred on 07-26-2025 ESR (Bld) [Velocity] 8 mm/h 0-20 [facility] Glomerular filtration rate ( GFR) estimation/1.73 sq m using serum, plasma, or whole bOrdered By: Fermin Alfred on 07-26-2025 GFR/1.73 sq M.predicted among non-blacks MDRD (S/P/Bld) [Vol rate/Area] 92 mL/min/{1.73_m2} >60 [facility] Comment on above: mL/min/1.73m2 CKD-EP I Creatinine Equation (2020) Hematocrit Auto (Bld) [Volum e fraction]Ordered By: Fermin Alfred on 07-26-2025 Hematocrit (Bld) [Volume fraction] 45.7 % 40-54 [facility] Hemoglobin measurementOrdere d By: Fermin Alfred on 07-26-2025 Hemoglobin (Bld) [Mass/Vol] 15.1 g/dL 13.0-16.5 [facility] Immature granulocytes/100 WB C Auto (Bld)Ordered By: Fermin Alfred on 07-26-2025 Immature granulocytes/100 WBC (Bld) 0.200 % 0.0-0.9 [facility] Comment on above: IG% - Immature Granu locytes (promyelocytes, myelocytes and metamyelocytes) > 1% indicates that a LEFT SHIFT is Present. Laboratory - Chemistry and C hemistry - challengeOrdered By: Fermin Alfred on 07-26-2025 AST [Catalytic activity/Vol] 43 U/L High <38 [facility] Liver Profileon 07-26-2025 Albumin [Mass/Vol] 4.4 g/dL Normal 3.5-5.0 [facility] Comment on above: Performed By: #### L 500.3400, L501.1105, L101.9900, L100.0100, L501.6710 ####[facility] [address] [place], [address] ALK PHOS 87 U/L Normal 40-129 [facility] Comment on above: Performed By: #### L 500.3400, L501.1105, L101.9900, L100.0100, L501.6710 ####[facility] [address] [place], [address] ALT [Catalytic activity/Vol] 31 U/L Normal <=46 [facility] Comment on above: Performed By: #### L 500.3400, L501.1105, L101.9900, L100.0100, L501.6710 ####[facility] [address] [place], [address] AST [Catalytic activity/Vol] 43 U/L High <=37 [facility] Comment on above: Performed By: #### L 500.3400, L501.1105, L101.9900, L100.0100, L501.6710 ####[facility] [address] [place], [address] Bilirubin [Mass/Vol] 0.35 mg/dL Normal 0.00-1.30 [facility] Comment on above: Performed By: #### L 500.3400, L501.1105, L101.9900, L100.0100, L501.6710 ####[facility] [address] [place], [address] Bilirubin.direct [Mass/Vol] 0.17 mg/dL Normal 0.00-0.30 [facility] Comment on above: Performed By: #### L 500.3400, L501.1105, L101.9900, L100.0100, L501.6710 ####[facility] [address] [place], [address] Globulin (S) [Mass/Vol] 3.0 g/dL Normal 2.2-4.2 [facility] Comment on above: Performed By: #### L 500.3400, L501.1105, L101.9900, L100.0100, L501.6710 ####[facility] [address] [place], [address] T PROT 7.4 g/dL Normal 5.9-8.4 [facility] Comment on above: Performed By: #### L 500.3400, L501.1105, L101.9900, L100.0100, L501.6710 ####[facility] [address] [place], [address] MCV (mean corpuscular volume ) determinationOrdered By: Fermin Alfred on 07-26-2025 MCV (RBC) [Entitic vol] 90.1 fL 80-94 [facility] Mean corpuscular hemoglobin (MCH) determinationOrdered By: Fermin Alfred on 07-26-2025 MCH (RBC) [Entitic mass] 29.8 pg 27.0-32.0 [facility] Mean corpuscular hemoglobin concentration (MCHC) determinationOrdered By: Fermin Alfred on 07-26-2025 MCHC (RBC) [Mass/Vol] 33.0 g/dL 32-36 [facility] Mean platelet volume determi nationOrdered By: Fermin Alfred on 07-26-2025 Platelet mean volume (Bld) [Entitic vol] 10.5 fL 6.2-12.0 [facility] Monocyte percentageOrdered B y: Fermin Alfred on 07-26-2025 Monocytes/100 WBC (Bld) 14.0 % High 0-10 [facility] Neutrophil percentageOrdered By: Fermin Alfred on 07-26-2025 Neutrophils/100 WBC (Bld) 66.3 % 47-70 [facility] Nucleated red blood cell per centageOrdered By: Fermin Alfred on 07-26-2025 Nucleated RBC/100 WBC (Bld) [Ratio] 0 % 0-5 [facility] Platelet countOrdered By: Monica Alfred on 07-26-2025 Platelets (Bld) [#/Vol] 272 10*3/uL 150-450 [facility] RBC Auto (Bld) [#/Vol]Ordere d By: Fermin Alfred on 07-26-2025 RBC (Bld) [#/Vol] 5.07 10*6/uL 4.6-6.[address] [facility] Serum Creatinine AND GFRon 0 07-26-2025 Creatinine [Mass/Vol] 0.96 mg/dL Normal 0.70-1.20 [facility] Comment on above: Performed By: #### L 500.3400, L501.1105, L101.9900, L100.0100, L501.6710 ####[facility] [address] [place], [place], [id number] GFR/1.73 sq M.predicted among non-blacks MDRD (S/P/Bld) [Vol rate/Area] 92 mL/min/{1.73_m2} Normal >60 [facility] Comment on above: Result Comment: mL/m in/1.73m2 CKD-EPI Creatinine Equation (2020) Performed By: #### L 500.3400, L501.1105, L101.9900, L100.0100, L501.6710 ####[facility] [address] [place], [address] Serum creatinine measurement (mass/volume)Ordered By: Fermin Alfred on 07-26-2025 Creatinine [Mass/Vol] 0.96 mg/dL 0.70-1.20 [facility] Serum globulin measurementOr dered By: Fermin Alfred on 07-26-2025 Globulin (S) [Mass/Vol] 3.0 g/dL 2.2-4.2 [facility] Serum or plasma C reactive p rotein measurement (mass/volume)Ordered By: Fermin Alfred on 07-26-2025 CRP [Mass/Vol] mg/L 0.0-3.0 [facility] Serum or plasma alanine leyva otransferase (ALT) measurementOrdered By: Fermin Alfred on 07-26-2025 ALT [Catalytic activity/Vol] 31 U/L <47 [facility] Serum or plasma albumin malachi urement (mass/volume)Ordered By: Fermin Alfred on 07-26-2025 Albumin [Mass/Vol] 4.4 g/dL 3.5-5.0 [facility] Serum or plasma alkaline krys sphatase measurementOrdered By: Fermin Alfred on 07-26-2025 ALP [Catalytic activity/Vol] 87 U/L 40-129 [facility] Total proteinOrdered By: Fredis Alfred on 07-26-2025 Protein [Mass/Vol] 7.4 g/dL 5.9-8.4 [facility] White blood cell (WBC) count Ordered By: Fermin Alfred on 07-26-2025 WBC (Bld) [#/Vol] 8.3 10*3/uL 4.4-11.0 [facility] Inital Evaluation (1) - PTon 07-17-2025 Inital Evaluation (1) - PT [facility] Physical Therapy [facility] [address] [place] [address] / REHABILITATION SERVICES INITIAL EVALUATION MR#: [id number] Acct: [id number] Name: NICKIE BROWNE Rep #: [id number] : 1965 60 From: Son Zavala DPT Referring Dr.: Dr. Royce Soto MD Status: R EG RCR Insurance: [employer]URANCE Patient's Visit Information Visit Information Visit Information: NICKIE BROWNE is a 60 year old M referred to Physical Therapy by Dr. Royce Soto MD with a diagnosis of R quad strain. Date of Evaluation: 07/17/25 Physical Therapist: Son Zavala DPT Visit Plan Frequency: 2x /Week Duration: 6 Weeks Plan: 1) foam rolling and stretching to R rectus femoris 2) IFC and ice to R quad for pain control 3) quad strengthening Subjective Subjective: Pt. is here today for his initial evaluation with diagnosis of R quad strain. Pt. reports pushing a trunk out of the middle of the road. Pt. reports feeling pain with this and intense pain the next day. Pt. reports no bruising, no N/T. Pt. reports reports "it feels like I lifted way too much." Pt. reports really not much change since the initial injury. He had tried wraps, massage, topicals without much success. 4-5/10 pain currently. Increased pain with walking, standing, stairs. Pt. reports a pulling sensation with these activities. Pt. reports no occurrences of his knee giving out on him. Pt is hopeful to reduce symptoms in order to get back to all recreational activities, inclduing fishing and out door activities. Pt. is retired. Pt. is to get xrays, not completed yet. Pain R anterior thigh: Pain Intensity (Out of 10): 5 Objective Objective: POSTURE: Pt. has normal posture in stance PALPATION: Pt. tender along rectus femoris, no knee joint line pain, no hip pain NEURO: Normal sensation and normal DTR. ROM: Pt. has normal R knee ROM without increase in symptoms, patient has normal R hip ROM without increase in symptoms. MMT: L knee: ext 31.1#, flex 22.0# R knee: ext 25.7#, flex 14.3# increased pain with knee extension GAIT: Pt. has normal gait pattern, but does have slight increase in R quad pain during stance phase. STAIRS: Pt. is able to complete with reciprocal, but does have increased R quad pain with loading phases. Balance/Special Test Scores Lower Extremity Functional Score: 48 Goals Goal 1:: LTG: Pt. to be I with HEP. Goal Time Frame: 4-6 Weeks Goal 2:: STG: pt. to walk without increase in R quad pain. Goal Time Frame: 2-4 Weeks Goal 3:: LTG: Pt. to have symmetrical strength between BLEs. Goal Time Frame: 4-6 Weeks Goal 4:: LTG: Pt. negotiate 1 flight of stairs with 1 HR without increase in R quad pain. Goal Time Frame: 4-6 Weeks Rehabilitation Potential Physical Therapy Diagnosis: Pt. has signs and symptoms consistent with quad strain. Pt. has marked pain with quad activation and with general mobility. Pt. would benefit from PT to address the above limitations. Rehabilitation Potential: Excellent Anticipated Interventions Patient/Client Instruction: Educate patient on: Condition, Plan of Care, Risk Factors and Benefits of Fitness Program For the Purpose of:: To facilitate caregiver knowledge, To improve self management, To prevent re- injury, To improve ability to perform tasks related to life management and To improve tolerance to ADL's Therapeutic Exercise to Include: Strength training, Power training, Flexibilty training, Gait and locomotor training, Passive ROM and Active ROM For the Purpose of:: To decrease pain, To increase ROM, To increase oxygenation perfusion, To improve muscle performance and motor function, To improve ability to perform ADL's, To improve health of tissue, To decrease soft tissue restriction and To increase flexibility/ROM Manual Therapy Techniques to Include: Soft tissue mobilization Comment: DFM For the Purpose of:: To decrease pain and To increase ROM IF ES: Yes Cryotherapy (ice pack, ice massage): Yes For the Purpose of:: To decrease pain, To decrease swelling/inflammation, To increase ROM, To improve nutrient delivery to tissue and To increase oxygenation perfusion Text: Thank you for the opportunity to evaluate your patient. For Medicare and Medicare HMO plans, please review the plan of care and approve it. It will need to be FAXED BACK to us at [phone] for Medicare purposes. For Medicare only, by signing this I certify the plan of care. Please let me know if there are questions or concerns regarding this plan of care. Physician Signature: Date: 07/17/25 1414 CC: Dr. Evelia Bains MD; Dr. Royce Soto MD CLS Signed Normal [facility] Orthopedic Visit Reporton Orthopedic Visit Report [facility] [address] [place] [address] OFFICE VISIT Date of Service: 07/14/25 MR#: [id number] Acct: [id number] Name: NICKIE BROWNE Rep #: [id number] : 1965 Provider: Dr. Royce mckeon MD Age/Sex: 60/M Location: [facility] Status: Signed Intake Vital Signs 06/12/25 09:19 07/12/25 09:12 07/14/25 07:58 Height 5 ft 9 in 5 ft 9 in 5 ft 9 in Weight: 168 lb BMI 24.7 Intake Visit Reasons: RIGHT LEG Chief Complaint: Right leg pain Accompanied by: Is patient in pain?: Yes Pain scale (1-10): 9 Allergies No Known Allergies Allergy (Verified 07/14/25 08:04) Medications ???Medication ???Instructions ???Recorded ???Confirmed ???Type hydroxychloroquine 200 mg tablet 400 mg PO QHS RA 03/01/17 07/14/25 History leflunomide 20 mg tablet 20 mg PO QHS RA 03/01/17 07/14/25 History levothyroxine 125 mcg tablet 150 mcg PO DAILY@0600 11/10/18 History omeprazole 20 mg capsule,delayed 20 mg PO DAILY GERD 11/10/1807/14 History release celecoxib 100 mg capsule (Celebrex) 100 mg PO BID 01/06/22 07/14/25 History amitriptyline 100 mg tablet 100 mg PO QHS 07/16/23 07/14/25 Hi story cyclobenzaprine 5 mg tablet 5 mg PO QHS 07/16/23 07/14/25 Hist ory metoprolol succinate 100 mg 100 mg PO DAILY 07/16/23 07/14/25 History tablet,extended release 24 hr escitalopram oxalate 10 mg tablet 10 mg PO QDAY 07/14/25 07/14/25 H istory rosuvastatin 5 mg tablet 5 mg PO QDAY 07/14/25 07/14/25 His tory Have you fallen in the past year?: No [facility] Medical History (Updated 07/14/25 @ 08:11 by Royce Soto MD) Strain of right quadriceps PONV (postoperative nausea and vomiting) Loss of hearing Wears glasses Alcohol use Thyroid disease Rheumatoid arthritis Gastric reflux Non-smoker Cardiology follow-up encounter History of echocardiogram History of fracture of arm TFCC (triangular fibrocartilage complex) injury Hypertension Osteoarthritis Chronic back pain Surgical History Hx of colonoscopy History of thumb surgery History of carpal tunnel surgery of right wrist History of lumbar surgery History of thyroidectomy History of herniorrhaphy Family History Father Myocardial infarction Hypertension CAD (coronary artery disease) PCI-Stent x 2 Unknown Arthritis High cholesterol Thyroid disorder Skin cancer Social History Smoking Status: Never smoker alcohol intake: never substance use type: does not use HPI RIGHT LEG Details: This documentation accurately reflects the service provided and the decisions made by me, Dr. Royce Soto MD 07/14/25 0758. Part of today???s visit was documented by [ ], acting as scribe. NICKIE BROWNE is a 60 year old M here today for Right thigh pain. This all started a month ago and the patient was pushing truck that had broken down. No prior thigh pain. No pop snap. There is no bruising or swelling there is mid thigh pain. Worse with activity worse with pushing on it. No groin pain no pain with bending over no pain at the knee. Patient wants to start some physical therapy for that. Has been using rest ice anti-inflammatories and other conservative management techniques. Ortho Exam General General: Yes no acute distress Neurologic: Yes alert and Yes oriented x3 Psychologic: Yes reasonable and appropriate Right Knee Skin/Wound: Yes CDI, No erythema, No ecchymosis and No swelling Knee ROM: Yes ROM-Flexion 0-140 Examination: No Med jt line tenderness and No Lat jt line tenderness Stability: NML: Anterior Drawer, NML: Clemente, NML: Posterior Drawer, NML: Valgus 0, NML: Valgus 30, NML: Varus 0 and NML: Varus 30 Right Hip Skin: Yes CDI, No Ecchymosis, No soft tissue swelling and No Erythema flexion: 120 degrees internal rotation @90 degree flexion: 10 degrees external rotation @90 degree extension: 40 degrees Special Tests: No pain with log roll, No iliopsoas snap, No IT band snap, No TTP Greater Troch and No FADIR HIP: mild pain to mid quads, no defect, able to SLR, strong, normal gait Supplemental Info ordered femur xr - to be done at [place] Coding Level of Care Code Off vis,est,level 3 Diagnoses Strain of right quadriceps S76.111A Assessment and Plan Assessment and Plan (1) Strain of right quadriceps: Status: Acute Plan: 60-year-old man with a right quadriceps muscle strain. Recommend rest ice anti-inflammatories also made a physical therapy referral. I also ordered x-rays to be done at the [place] office the patient has hospital insurance so they will get (more content not included)... Normal [facility] Colonoscopy Reporton 025 Colonoscopy Report [facility] Medical Records Department [address] [place] [address] Colonoscopy Report MR#: [id number] Acct: [id number] Name: NICKIE BROWNE Rep #: [id number] : 1965 59 From: Francie Cedeño MD PCP: Dr. Evelia Bains MD Status:[facility] Patient Name: Nickie Browne Procedure Date: 06/12/2025 10:32 AM Date of : 1965 Age: 59 Procedure: Colonoscopy Indications: Screening for colorectal malignant neoplasm Providers: Francie Cedeño MD Referring MD: Evelia Bains Medicines: Monitored Anesthesia Care Patient Profile: This is a 59 year old male. Last Colonoscopy: November 2017. Complications: No immediate complications. Procedure: Pre-Anesthesia Assessment: - Prior to the procedure, a History and Physical was performed, and patient medications and allergies were reviewed. The patient's tolerance of previous anesthesia was also reviewed. The risks and benefits of the procedure and the sedation options and risks were discussed with the patient. All questions were answered, and informed consent was obtained. Prior Anticoagulants: The patient has taken no anticoagulant or antiplatelet agents. ASA Grade Assessment: Per anesthesia. After reviewing the risks and benefits, the patient was deemed in satisfactory condition to undergo the procedure. After I obtained informed consent, the scope was passed under direct vision. Throughout the procedure, the patient's blood pressure, pulse, and oxygen saturations were monitored continuously. The pediatric colonoscope was introduced through the anus and advanced to the cecum, identified by the appendiceal orifice, ileocecal valve and palpation. The colonoscopy was performed without difficulty. The patient tolerated the procedure well. The quality of the bowel preparation was good. Scope In: 10:43:16 AM Scope Withdrawal Time 0 hours 6 minutes 19 seconds Scope Out: 10:56:13 AM Total Procedure Duration Time 0 hours 12 minutes 57 seconds Findings: The perianal and digital rectal examinations were normal. Non-bleeding internal hemorrhoids were found. The hemorrhoids were Grade I (internal hemorrhoids that do not prolapse). The entire examined colon appeared normal. Impression: - Non-bleeding internal hemorrhoids. - The entire examined colon is normal. - No specimens collected. Recommendation: - Discharge patient to home. - Resume previous diet. - Continue present medications. - Repeat colonoscopy in 10 years for screening purposes. Procedure Code(s): --- Professional --- G0121, PT, Colorectal cancer screening; colonoscopy on individual not meeting criteria for high risk Diagnosis Code(s): --- Professional --- Z12.11, Encounter for screening for malignant neoplasm of colon K64.0, First degree hemorrhoids CPT copyright 2021 [employer]. All rights reserved. The codes documented in this report are preliminary and upon counsellors review may be revised to meet current compliance requirements. MD Francie Bajwa MD 06/12/2025 11:01:31 AM This report has been signed electronically. Number of Addenda: 0 Note Initiated On: 06/12/2025 10:32 AM 06/12/25 1101 Date Francie Rankinigngerardo Signature: Date (if indicated) CC: Dr. Evelia Bains MD; Dr. Francie Cedeño MD Date Dictated: 06/12/25 1032 Date Transcribed: Agitator Operator: LUCRECIA Lopes [facility] MR/POSTOP.[facility] 06-12-2025 MR/POSTOP.[facility] Medical Records Department [address] [place] [address] Anesthesia Postop Eval I 06/12/25 110 MR#: [id number] Acct: [id number] Name: NICKIE BROWNE Rep #: [id number] : 1965 59 From: Anshul Singh PCP: Dr. Evelia Bains MD Status:[facility] Y Race: C Location: [place] [address] Anesthesia: Postop Eval I Current Vital Signs Temperature: 97.9 F Pulse Rate: 77 Blood Pressure: 133/92 Respiratory Rate: 18 Pulse Ox: 98 Assessment Airway patent: Yes Spontaneous unlabored respirations: Yes nausea: No Vomiting: No Anesthesia Complication: No Fluid Hydration Crystalloid volume administer (ml): 500 Total IV fluid infused: 500 Progress Note Anesthesia document: Postop Eval 1 completed: Yes 06/12/25 110 Date Anshul Khan Signature: Date CC: Signed Normal [facility] MR/LDRNRZEW6th 06-12-2025 MR/POSTOPAN2 [facility] Medical Records Department [address] [place] [address] Anesthesia Postop Eval II 06/12/25 1345 MR#: [id number] Acct: [id number] Name: NICKIE BROWNE Rep #: [id number] : 1965 59 From: Araceli Quintana CRNA PCP: Dr. Evelia Bains MD Status:[facility] Y Race: C Location: [place] Anesthesia Postop Eval I Sum Postop Eval Completion status Anesthesia document: Postop Eval 1 completed: Yes Anesthesia Postop Eval I Summary Anesthesia Postop Eval I Summary: Anesthesia Postop Eval I: Assessment Summary Airway patent Yes 06/12/25 11:07 [email or web address] Spontaneous unlabored Yes 06/12/25 11:07 [email or web address] respirations Mental status nausea No 06/12/25 11:07 [email or web address] Vomiting No 06/12/25 11:07 [email or web address] Anesthesia Postop Eval I: Fluid Summary Crystalloid volume administer 500 06/12/25 11:07 [email or web address] (ml) Colloids volume administered ( ml) Blood Product volume administered (ml) Total IV fluid infused 500 06/12/25 11:07 [email or web address] Anesthesia Postop Eval I: Summary Notes Anesthesia Complication No 06/12/25 11:07 [email or web address] Anesthesia Complication Comment: Post-operative progress note Anesthesia: Postop Eval II Evaluation Mental status: Awake and Calm Pain Level: 0 nausea: No Vomiting: No Complications Anesthesia Complication: No 06/12/25 1345 Date Araceli Rankinigner Signature: Date CC: Signed Normal [facility] MR/Andreina 06-09-2025 MR/PAT.ANE [facility] Medical Records Department [address] [place] [address] PAT - Anesthesia 06/09/25 1422 MR#: [id number] Acct: [id number] Name: NICKIE BROWNE Rep #: [id number] : 1965 59 From: Manuel Page MD PCP: Dr. 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 When Was Last Pacemaker Check QUESTION #4 FULL TEXT: You/Your Family Experience fever (hyperthermia) with Anesthesia Last Oral Intake Last Oral intake: Last Oral Intake NPO since Meds taken in AM with sips of water? Meds patient instructed to take am of surgery PONV PONV - configuration management analyst: PONV - configuration management analyst Female No 06/09/25 08:38 HX of Motion Sickness No 06/09/25 08:38 HX of N/V After Surgery No 06/09/25 08:38 Non-Smoker Yes 06/09/25 08:38 Duration of Surgery greater No 06/09/25 08:38 than 60 minutes Number of Risk Factors 1 06/09/25 08:38 PONV Score Low Risk 06/09/25 08:38 Height Weight Height Weight: Anesthesia: Height Weight Height 5 ft 9 in 01/28/24 15:23 Respiratory Assessment Respiratory Assessment - configuration management analyst: Respiratory Tract Infection Hx - configuration management analyst Hx Respiratory Tract Infection No 06/09/25 08:38 STOP Sleep Apnea STOP Sleep Apnea - configuration management analyst: STOP Sleep Apnea - configuration management analyst Hx Hypertension Yes: CONTROLLED WITH MED 06/09/25 08:38 Hx Sleep Apnea No 06/09/25 08:38 CPAP BIPAP Do you snore loudly (louder No 06/09/25 08:38 than talking or can be heard Do you often feel tired/ No 06/09/25 08:38 fatigued/ sleepy during daytime? Has anyone observed you stop No 06/09/25 08:38 breathing during sleep? STOP Results Negative 06/09/25 08:38 QUESTION #5 FULL TEXT : Do you snore loudly (louder than talking or can be heard through closed doors)? 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 Specify any problems Hx of Preganancy in last 3 N/A 06/09/25 08:38 Months Nurse Filling Out Transfusion DSCHRIBER 06/09/25 08:38 Questions: Date: 06/09/25 06/09/25 08:38 Time: 08:40 06/09/25 08:38 Patient unable to answer at this time (ie. 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 Hx Now No 06/09/25 08:38 Gestational Age (in weeks): EDC: Hx Hx Para Hx Section SAB No 06/09/25 08:38 PFSH Medical History (Updated 06/09/25 @ 08:46 by Amita Locke) PONV (postoperative nausea and vomiting) Loss of hearing Wears glasses Alcohol use Thyroid disease Rheumatoid arthritis Gastric reflux Non-smoker Cardiology follow-up encounter History of echocardiogram History of fracture of arm TFCC (triangular fibrocartilage complex) injury Hypertension Osteoarthritis Chronic back pain Home Medications ???Medication ???Instructions ???Recorded ???Last Taken ???Type hydroxychloroquine 200 mg tablet 400 mg PO QHS RA 03/01/17 06/04/18 History leflunomide 20 mg tablet 20 mg PO QHS RA 03/01/17 06/04/18 History levothyroxine 125 mcg tablet 150 mcg PO DAILY@0600 11/10/18 Unk nown History omeprazole 20 mg capsule,delayed 20 mg PO DAILY GERD 11/10/18 Unkno wn History release celecoxib 100 mg capsule (Celebrex) 100 mg PO BID 01/06/22 Unknown History amitriptyline 100 mg tablet 100 mg PO QHS 07/16/23 Unknown His tory cyc (more content not included)... Normal [facility] Absolute lymphocyte counton 04-06-2025 Lymphocytes Auto (Unsp spec) [#/Vol] 1.53 10*3/uL 0.83-4.51 [facility] Absolute neutrophil counton 04-06-2025 Neutrophils (Bld) [#/Vol] 6.0 10*3/uL 2.0-7.7 [facility] Automated lymphocyte count a s percentage of total leukocyteson 04-06-2025 Lymphocytes/100 WBC Auto (Unsp spec) 16.9 % Low 19-41 [facility] Basophil percentageon 2024 Basophils/100 WBC (Bld) 0.9 % 0-1 [facility] Bilirubin directon Bilirubin.direct [Mass/Vol] 0.16 mg/dL 0.00-0.30 [facility] Bilirubin, totalon 5 Bilirubin [Mass/Vol] 0.33 mg/dL 0.00-1.30 [facility] CBC W/Diff, Automatedon 03-23 Absolute Lymph 1.53 X10 3/uL Normal 0.83-4.51 [facility] Comment on above: Performed By: #### L 100.0100, L101.9900, L500.3400, L501.1105, L501.6710 #### [facility] [address] [place], [address] Absolute Neut 6.0 X10 3/uL Normal 2.0-7.7 [facility] Comment on above: Performed By: #### L 100.0100, L101.9900, L500.3400, L501.1105, L501.6710 #### [facility] [address] [place], [address] Basophils/100 WBC (Bld) 0.9 % Normal 0-1 [facility] Comment on above: Performed By: #### L 100.0100, L101.9900, L500.3400, L501.1105, L501.6710 #### [facility] [address] [place], [address] Eosinophils/100 WBC (Bld) 1.1 % Normal 0-5 [facility] Comment on above: Performed By: #### L 100.0100, L101.9900, L500.3400, L501.1105, L501.6710 #### [facility] [address] [place], [address] Erythrocyte distribution width (RBC) [Ratio] 13.6 % Normal 11.6-14.6 [facility] Comment on above: Performed By: #### L 100.0100, L101.9900, L500.3400, L501.1105, L501.6710 #### [facility] [address] [place], [address] Hematocrit (Bld) [Volume fraction] 42.4 % Normal 40-54 [facility] Comment on above: Performed By: #### L 100.0100, L101.9900, L500.3400, L501.1105, L501.6710 #### [facility] [address] [place], [address] Hemoglobin (Bld) [Mass/Vol] 13.9 g/dL Normal 13.0-16.5 [facility] Comment on above: Performed By: #### L 100.0100, L101.9900, L500.3400, L501.1105, L501.6710 #### [facility] [address] [place], [address] IG% 0.300 Normal 0.0-0.9 [facility] Comment on above: Result Comment: IG% - Immature Granulocytes (promyelocytes, myelocytes and metamyelocytes) > 1% indicates that a LEFT SHIFT is Present. Performed By: #### L 100.0100, L101.9900, L500.3400, L501.1105, L501.6710 #### [facility] [address] [place], [address] Lymphocytes/100 WBC (Bld) 16.9 % Low 19-41 [facility] Comment on above: Performed By: #### L 100.0100, L101.9900, L500.3400, L501.1105, L501.6710 #### [facility] [address] [place], [address] MCH (RBC) [Entitic mass] 29.3 pg Normal 27.0-32.0 [facility] Comment on above: Performed By: #### L 100.0100, L101.9900, L500.3400, L501.1105, L501.6710 #### [facility] [address] [place], [address] MCHC (RBC) [Mass/Vol] 32.8 g/dL Normal 32-36 [facility] Comment on above: Performed By: #### L 100.0100, L101.9900, L500.3400, L501.1105, L501.6710 #### [facility] [address] [place], [address] MCV (RBC) [Entitic vol] 89.5 fL Normal 80-94 [facility] Comment on above: Performed By: #### L 100.0100, L101.9900, L500.3400, L501.1105, L501.6710 #### [facility] [address] [place], [address] Monocytes/100 WBC (Bld) 14.3 % High 0-10 [facility] Comment on above: Performed By: #### L 100.0100, L101.9900, L500.3400, L501.1105, L501.6710 #### [facility] [address] [place], [address] Neutrophils/100 WBC (Bld) 66.5 % Normal 47-70 [facility] Comment on above: Performed By: #### L 100.0100, L101.9900, L500.3400, L501.1105, L501.6710 #### [facility] [address] [place], [address] Nucleated RBC (Bld) [#/Vol] 0 10*3/uL Normal 0-5 [facility] Comment on above: Performed By: #### L 100.0100, L101.9900, L500.3400, L501.1105, L501.6710 #### [facility] [address] [place], [address] Platelet mean volume (Bld) [Entitic vol] 10.9 fL Normal 6.2-12.0 [facility] Comment on above: Performed By: #### L 100.0100, L101.9900, L500.3400, L501.1105, L501.6710 #### [facility] [address] [place], [address] Platelets (Bld) [#/Vol] 222 10*3/uL Normal 150-450 [facility] Comment on above: Performed By: #### L 100.0100, L101.9900, L500.3400, L501.1105, L501.6710 #### [facility] [address] [place], [address] RBC (Bld) [#/Vol] 4.74 10*6/uL Normal 4.6-6.[address] [facility] Comment on above: Performed By: #### L 100.0100, L101.9900, L500.3400, L501.1105, L501.6710 #### [facility] [address] [place], [address] RDW SD 44.9 fl High 35.1-43.9 [facility] Comment on above: Performed By: #### L 100.0100, L101.9900, L500.3400, L501.1105, L501.6710 #### [facility] [address] [place], [address] WBC (Bld) [#/Vol] 9.1 10*3/uL Normal 4.4-11.0 [facility] Comment on above: Performed By: #### L 100.0100, L101.9900, L500.3400, L501.1105, L501.6710 #### [facility] [address] [place], [address] CRPon 04-06-2025 C-REACTIVE PROT < 3.00 Normal 0.0-3.0 [facility] Comment on above: Performed By: #### L 100.0100, L101.9900, L500.3400, L501.1105, L501.6710 #### [facility] [address] [place], [address] Eosinophil percentageon 03-23 Eosinophils/100 WBC (Bld) 1.1 % 0-5 [facility] Erythrocyte Sed Rateon SED RATE 6 mm/hr Normal 0-20 [facility] Comment on above: Performed By: #### L 100.0100, L101.9900, L500.3400, L501.1105, L501.6710 #### [facility] [address] [place], [address] Erythrocyte distribution wid th ratioon 04-06-2025 Erythrocyte distribution width (RBC) [Ratio] 13.6 % 11.6-14.6 [facility] Erythrocyte distribution wid th standard deviationon 04-06-2025 Erythrocyte distribution width (RBC) [Ratio] 44.9 fl High 35.1-43.9 [facility] Erythrocyte sedimentation ra arcelia 04-06-2025 ESR (Bld) [Velocity] 6 mm/h 0-20 [facility] Glomerular filtration rate ( GFR) estimation/1.73 sq m using serum, plasma, or whole bon 04-06-2025 GFR/1.73 sq M.predicted among non-blacks MDRD (S/P/Bld) [Vol rate/Area] 96 mL/min/{1.73_m2} >60 [facility] Comment on above: mL/min/1.73m2 CKD-EP I Creatinine Equation (2020) Hematocrit Auto (Bld) [Volum e fraction]on 04-06-2025 Hematocrit (Bld) [Volume fraction] 42.4 % 40-54 [facility] Hemoglobin measurementon Hemoglobin (Bld) [Mass/Vol] 13.9 g/dL 13.0-16.5 [facility] Immature granulocytes/100 WB C Auto (Bld)on 04-06-2025 Immature granulocytes/100 WBC (Bld) 0.300 % 0.0-0.9 [facility] Comment on above: IG% - Immature Granu locytes (promyelocytes, myelocytes and metamyelocytes) > 1% indicates that a LEFT SHIFT is Present. Laboratory - Chemistry and C hemistry - challengeon 04-06-2025 AST [Catalytic activity/Vol] 41 U/L High <38 [facility] Liver Profileon 04-06-2025 Albumin [Mass/Vol] 4.2 g/dL Normal 3.5-5.0 [facility] Comment on above: Performed By: #### L 100.0100, L101.9900, L500.3400, L501.1105, L501.6710 #### [facility] [address] [place], [address] ALK PHOS 79 U/L Normal 40-129 [facility] Comment on above: Performed By: #### L 100.0100, L101.9900, L500.3400, L501.1105, L501.6710 #### [facility] [address] [place], [address] ALT [Catalytic activity/Vol] 26 U/L Normal <=46 [facility] Comment on above: Performed By: #### L 100.0100, L101.9900, L500.3400, L501.1105, L501.6710 #### [facility] [address] [place], [address] AST [Catalytic activity/Vol] 41 U/L High <=37 [facility] Comment on above: Performed By: #### L 100.0100, L101.9900, L500.3400, L501.1105, L501.6710 #### [facility] [address] [place], [address] Bilirubin [Mass/Vol] 0.33 mg/dL Normal 0.00-1.30 [facility] Comment on above: Performed By: #### L 100.0100, L101.9900, L500.3400, L501.1105, L501.6710 #### [facility] [address] [place], [address] Bilirubin.direct [Mass/Vol] 0.16 mg/dL Normal 0.00-0.30 [facility] Comment on above: Performed By: #### L 100.0100, L101.9900, L500.3400, L501.1105, L501.6710 #### [facility] [address] [place], [address] Globulin (S) [Mass/Vol] 2.7 g/dL Normal 2.2-4.2 [facility] Comment on above: Performed By: #### L 100.0100, L101.9900, L500.3400, L501.1105, L501.6710 #### [facility] [address] [place], [address] T PROT 6.9 g/dL Normal 5.9-8.4 [facility] Comment on above: Performed By: #### L 100.0100, L101.9900, L500.3400, L501.1105, L501.6710 #### [facility] [address] [place], [address] MCV (mean corpuscular volume ) determinationon 04-06-2025 MCV (RBC) [Entitic vol] 89.5 fL 80-94 [facility] Mean corpuscular hemoglobin (MCH) determinationon 04-06-2025 MCH (RBC) [Entitic mass] 29.3 pg 27.0-32.0 [facility] Mean corpuscular hemoglobin concentration (MCHC) determinationon 04-06-2025 MCHC (RBC) [Mass/Vol] 32.8 g/dL 32-36 [facility] Mean platelet volume determi nationon 04-06-2025 Platelet mean volume (Bld) [Entitic vol] 10.9 fL 6.2-12.0 [facility] Monocyte percentageon 2024 Monocytes/100 WBC (Bld) 14.3 % High 0-10 [facility] Neutrophil percentageon 03-23 Neutrophils/100 WBC (Bld) 66.5 % 47-70 [facility] Nucleated red blood cell per centageon 04-06-2025 Nucleated RBC/100 WBC (Bld) [Ratio] 0 % 0-5 [facility] Platelet counton 04-06-2025 Platelets (Bld) [#/Vol] 222 10*3/uL 150-450 [facility] RBC Auto (Bld) [#/Vol]on RBC (Bld) [#/Vol] 4.74 10*6/uL 4.6-6.[address] [facility] Serum Creatinine AND GFRon 04-06-2025 Creatinine [Mass/Vol] 0.93 mg/dL Normal 0.70-1.20 [facility] Comment on above: Performed By: #### L 100.0100, L101.9900, L500.3400, L501.1105, L501.6710 #### [facility] [address] [place], [address] GFR/1.73 sq M.predicted among non-blacks MDRD (S/P/Bld) [Vol rate/Area] 96 mL/min/{1.73_m2} Normal >60 [facility] Comment on above: Result Comment: mL/m in/1.73m2 CKD-EPI Creatinine Equation (2020) Performed By: #### L 100.0100, L101.9900, L500.3400, L501.1105, L501.6710 #### [facility] [address] [place], [place], [address] Serum creatinine measurement (mass/volume)on 04-06-2025 Creatinine [Mass/Vol] 0.93 mg/dL 0.70-1.20 [facility] Serum globulin measurementon 04-06-2025 Globulin (S) [Mass/Vol] 2.7 g/dL 2.2-4.2 [facility] Serum or plasma C reactive p rotein measurement (mass/volume)on 04-06-2025 CRP [Mass/Vol] mg/L 0.0-3.0 [facility] Serum or plasma alanine leyva otransferase (ALT) measurementon 04-06-2025 ALT [Catalytic activity/Vol] 26 U/L <47 [facility] Serum or plasma albumin malachi urement (mass/volume)on 04-06-2025 Albumin [Mass/Vol] 4.2 g/dL 3.5-5.0 [facility] Serum or plasma alkaline krys sphatase measurementon 04-06-2025 ALP [Catalytic activity/Vol] 79 U/L 40-129 [facility] Total proteinon 04-06-2025 Protein [Mass/Vol] 6.9 g/dL 5.9-8.4 [facility] White blood cell (WBC) count on 04-06-2025 WBC (Bld) [#/Vol] 9.1 10*3/uL 4.4-11.0 [facility] Absolute lymphocyte countOrd ered By: Fermin Alfred on 01-27-2025 Lymphocytes Auto (Unsp spec) [#/Vol] 1.53 10*3/uL 0.83-4.51 [facility] Absolute neutrophil countOrd ered By: Fermin Alfred on 01-27-2025 Neutrophils (Bld) [#/Vol] 3.3 10*3/uL 2.0-7.7 [facility] Automated lymphocyte count a s percentage of total leukocytesOrdered By: Fermin Alfred on 01-27-2025 Lymphocytes/100 WBC Auto (Unsp spec) 25.2 % 19-41 [facility] Basophil percentageOrdered B y: Fermin Alfred on 01-27-2025 Basophils/100 WBC (Bld) 0.5 % 0-1 [facility] Bilirubin directOrdered By: Fermin Alfred on 01-27-2025 Bilirubin.direct [Mass/Vol] 0.20 mg/dL 0.00-0.30 [facility] Bilirubin, totalOrdered By: Fermin lAfred on 01-27-2025 Bilirubin [Mass/Vol] 0.41 mg/dL 0.00-1.30 [facility] CBC W/Diff, Automatedon Absolute Lymph 1.53 X10 3/uL Normal 0.83-4.51 [facility] Comment on above: Performed By: #### L 101.9900, L501.1105, L501.6710, L500.3400, L100.0100 ####[facility] [address] [place], [address] Absolute Neut 3.3 X10 3/uL Normal 2.0-7.7 [facility] Comment on above: Performed By: #### L 101.9900, L501.1105, L501.6710, L500.3400, L100.0100 ####[facility] [address] [place], [address] Basophils/100 WBC (Bld) 0.5 % Normal 0-1 [facility] Comment on above: Performed By: #### L 101.9900, L501.1105, L501.6710, L500.3400, L100.0100 ####[facility] [address] [place], [address] Eosinophils/100 WBC (Bld) 1.8 % Normal 0-5 [facility] Comment on above: Performed By: #### L 101.9900, L501.1105, L501.6710, L500.3400, L100.0100 ####[facility] [address] [place], [address] Erythrocyte distribution width (RBC) [Ratio] 12.4 % Normal 11.6-14.6 [facility] Comment on above: Performed By: #### L 101.9900, L501.1105, L501.6710, L500.3400, L100.0100 ####[facility] [address] [place], [address] Hematocrit (Bld) [Volume fraction] 47.2 % Normal 40-54 [facility] Comment on above: Performed By: #### L 101.9900, L501.1105, L501.6710, L500.3400, L100.0100 ####[facility] [address] [place], [address] Hemoglobin (Bld) [Mass/Vol] 15.8 g/dL Normal 13.0-16.5 [facility] Comment on above: Performed By: #### L 101.9900, L501.1105, L501.6710, L500.3400, L100.0100 ####[facility] [address] [place], [address] IG% 0.200 Normal 0.0-0.9 [facility] Comment on above: Result Comment: IG% - Immature Granulocytes (promyelocytes, myelocytes and metamyelocytes) > 1% indicates that a LEFT SHIFT is Present. Performed By: #### L 101.9900, L501.1105, L501.6710, L500.3400, L100.0100 ####[facility] [address] [place], [address] Lymphocytes/100 WBC (Bld) 25.2 % Normal 19-41 [facility] Comment on above: Performed By: #### L 101.9900, L501.1105, L501.6710, L500.3400, L100.0100 ####[facility] [address] [place], [address] MCH (RBC) [Entitic mass] 29.6 pg Normal 27.0-32.0 [facility] Comment on above: Performed By: #### L 101.9900, L501.1105, L501.6710, L500.3400, L100.0100 ####[facility] [address] [place], [address] MCHC (RBC) [Mass/Vol] 33.5 g/dL Normal 32-36 [facility] Comment on above: Performed By: #### L 101.9900, L501.1105, L501.6710, L500.3400, L100.0100 ####[facility] [address] [place], [address] MCV (RBC) [Entitic vol] 88.6 fL Normal 80-94 [facility] Comment on above: Performed By: #### L 101.9900, L501.1105, L501.6710, L500.3400, L100.0100 ####[facility] [address] [place], [address] Monocytes/100 WBC (Bld) 18.8 % High 0-10 [facility] Comment on above: Performed By: #### L 101.9900, L501.1105, L501.6710, L500.3400, L100.0100 ####[facility] [address] [place], [address] Neutrophils/100 WBC (Bld) 53.5 % Normal 47-70 [facility] Comment on above: Performed By: #### L 101.9900, L501.1105, L501.6710, L500.3400, L100.0100 ####[facility] [address] [place], [address] Nucleated RBC (Bld) [#/Vol] 0 10*3/uL Normal 0-5 [facility] Comment on above: Performed By: #### L 101.9900, L501.1105, L501.6710, L500.3400, L100.0100 ####[facility] [address] [place], [address] Platelet mean volume (Bld) [Entitic vol] 10.3 fL Normal 6.2-12.0 [facility] Comment on above: Performed By: #### L 101.9900, L501.1105, L501.6710, L500.3400, L100.0100 ####[facility] [address] [place], [address] Platelets (Bld) [#/Vol] 214 10*3/uL Normal 150-450 [facility] Comment on above: Performed By: #### L 101.9900, L501.1105, L501.6710, L500.3400, L100.0100 ####[facility] [address] [place], [address] RBC (Bld) [#/Vol] 5.33 10*6/uL Normal 4.6-6.[address] [facility] Comment on above: Performed By: #### L 101.9900, L501.1105, L501.6710, L500.3400, L100.0100 ####[facility] [address] [place], [address] RDW SD 40.6 fl Normal 35.1-43.9 [facility] Comment on above: Performed By: #### L 101.9900, L501.1105, L501.6710, L500.3400, L100.0100 ####[facility] [address] [place], [address] WBC (Bld) [#/Vol] 6.1 10*3/uL Normal 4.4-11.0 [facility] Comment on above: Performed By: #### L 101.9900, L501.1105, L501.6710, L500.3400, L100.0100 ####[facility] [address] [place], [address] CRPon 01-27-2025 C-REACTIVE PROT 6.30 mg/L High 0.0-3.0 [facility] Comment on above: Performed By: #### L 101.9900, L501.1105, L501.6710, L500.3400, L100.0100 ####[facility] [address] [place], [address] CRP [Mass/Vol]Ordered By: Monica Alfred on 01-27-2025 C-Reactive Protein Extended Range 6.30 mg/L High 0.0-3.0 [facility] Eosinophil percentageOrdered By: Fermin Alfred on 01-27-2025 Eosinophils/100 WBC (Bld) 1.8 % 0-5 [facility] Erythrocyte Sed Rateon 01-27 SED RATE 10 mm/hr Normal 0-20 [facility] Comment on above: Performed By: #### L 101.9900, L501.1105, L501.6710, L500.3400, L100.0100 ####[facility] [address] [place], [address] Erythrocyte distribution wid th ratioOrdered By: Fermin Alfred on 01-27-2025 Erythrocyte distribution width (RBC) [Ratio] 12.4 % 11.6-14.6 [facility] Erythrocyte distribution wid th standard deviationOrdered By: Fermin Alfred on 01-27-2025 Erythrocyte distribution width (RBC) [Entitic vol] 40.6 fL 35.1-43.9 [facility] Erythrocyte distribution width (RBC) [Ratio] 40.6 fl 35.1-43.9 [facility] Erythrocyte sedimentation ra teOrdered By: Fermin Alfred on 01-27-2025 ESR (Bld) [Velocity] 10 mm/h 0-20 [facility] GFR/1.73 sq M.predicted mark g non-blacks MDRD (S/P/Bld) [Vol rate/Area]Ordered By: Fermin Alfred on 01-27-2025 Estimated GFR (MDRD) Non-Af Amer 86 >60 [facility] Comment on above: mL/min/1.73m2 CKD-EP I Creatinine Equation (2020) Glomerular filtration rate ( GFR) estimation/1.73 sq m using serum, plasma, or whole bOrdered By: Fermin Alfred on 01-27-2025 GFR/1.73 sq M.predicted among non-blacks MDRD (S/P/Bld) [Vol rate/Area] 86 mL/min/{1.73_m2} >60 [facility] Comment on above: mL/min/1.73m2 CKD-EP I Creatinine Equation (2020) Hematocrit Auto (Bld) [Volum e fraction]Ordered By: Fermin Alfred on 01-27-2025 Hematocrit (Bld) [Volume fraction] 47.2 % 40-54 [facility] Hemoglobin measurementOrdere d By: Fermin Alfred on 01-27-2025 Hemoglobin (Bld) [Mass/Vol] 15.8 g/dL 13.0-16.5 [facility] Immature granulocytes/100 WB C Auto (Bld)Ordered By: Fermin Alfred on 01-27-2025 Immature granulocytes/100 WBC (Bld) 0.200 % 0.0-0.9 [facility] Comment on above: IG% - Immature Granu locytes (promyelocytes, myelocytes and metamyelocytes) > 1% indicates that a LEFT SHIFT is Present. Laboratory - Chemistry and C hemistry - challengeOrdered By: Fermin Alfred on 01-27-2025 AST [Catalytic activity/Vol] 57 U/L High <38 [facility] Liver Profileon 01-27-2025 Albumin [Mass/Vol] 4.4 g/dL Normal 3.5-5.0 [facility] Comment on above: Performed By: #### L 101.9900, L501.1105, L501.6710, L500.3400, L100.0100 ####[facility] [address] [place], [address] ALK PHOS 109 U/L Normal 40-129 [facility] Comment on above: Performed By: #### L 101.9900, L501.1105, L501.6710, L500.3400, L100.0100 ####[facility] [address] [place], [address] ALT [Catalytic activity/Vol] 41 U/L Normal <=46 [facility] Comment on above: Performed By: #### L 101.9900, L501.1105, L501.6710, L500.3400, L100.0100 ####[facility] [address] [place], [address] AST [Catalytic activity/Vol] 57 U/L High <=37 [facility] Comment on above: Performed By: #### L 101.9900, L501.1105, L501.6710, L500.3400, L100.0100 ####[facility] [address] [place], [address] Bilirubin [Mass/Vol] 0.41 mg/dL Normal 0.00-1.30 [facility] Comment on above: Performed By: #### L 101.9900, L501.1105, L501.6710, L500.3400, L100.0100 ####[facility] [address] [place], [address] Bilirubin.direct [Mass/Vol] 0.20 mg/dL Normal 0.00-0.30 [facility] Comment on above: Performed By: #### L 101.9900, L501.1105, L501.6710, L500.3400, L100.0100 ####[facility] [address] [place], [address] Globulin (S) [Mass/Vol] 3.3 g/dL Normal 2.2-4.2 [facility] Comment on above: Performed By: #### L 101.9900, L501.1105, L501.6710, L500.3400, L100.0100 ####[facility] [address] [place], [address] T PROT 7.7 g/dL Normal 5.9-8.4 [facility] Comment on above: Performed By: #### L 101.9900, L501.1105, L501.6710, L500.3400, L100.0100 ####[facility] [address] [place], [address] Lymphocytes Auto (Unsp spec) [#/Vol]Ordered By: Fermin Alfred on 01-27-2025 Lymphocytes (Bld) [#/Vol] 1.53 10*3/uL 0.83-4.51 [facility] Lymphocytes/100 WBC Auto (Un sp spec)Ordered By: Fermin Alfred on 01-27-2025 Lymphocytes/100 WBC (Bld) 25.2 % 19-41 [facility] MCV (mean corpuscular volume ) determinationOrdered By: Fermin Alfred on 01-27-2025 MCV (RBC) [Entitic vol] 88.6 fL 80-94 [facility] Mean corpuscular hemoglobin (MCH) determinationOrdered By: Fermin Alfred on 01-27-2025 MCH (RBC) [Entitic mass] 29.6 pg 27.0-32.0 [facility] Mean corpuscular hemoglobin concentration (MCHC) determinationOrdered By: Fermin Alfred on 01-27-2025 MCHC (RBC) [Mass/Vol] 33.5 g/dL 32-36 [facility] Mean platelet volume determi nationOrdered By: Fermin Alfred on 01-27-2025 Platelet mean volume (Bld) [Entitic vol] 10.3 fL 6.2-12.0 [facility] Monocyte percentageOrdered B y: Fermin Alfred on 01-27-2025 Monocytes/100 WBC (Bld) 18.8 % High 0-10 [facility] Neutrophil percentageOrdered By: Fermin Alfred on 01-27-2025 Neutrophils/100 WBC (Bld) 53.5 % 47-70 [facility] Nucleated red blood cell per centageOrdered By: Fermin Alfred on 01-27-2025 Nucleated RBC/100 WBC (Bld) [Ratio] 0 % 0-5 [facility] Platelet countOrdered By: Monica Alfred on 01-27-2025 Platelets (Bld) [#/Vol] 214 10*3/uL 150-450 [facility] RBC Auto (Bld) [#/Vol]Ordere d By: Fermin Alfred on 01-27-2025 RBC (Bld) [#/Vol] 5.33 10*6/uL 4.6-6.[address] [facility] Serum Creatinine AND GFRon 0 01-27-2025 Creatinine [Mass/Vol] 1.02 mg/dL Normal 0.70-1.20 [facility] Comment on above: Performed By: #### L 101.9900, L501.1105, L501.6710, L500.3400, L100.0100 ####[facility] [address] [place], [place], [address] GFR/1.73 sq M.predicted among non-blacks MDRD (S/P/Bld) [Vol rate/Area] 86 mL/min/{1.73_m2} Normal >60 [facility] Comment on above: Result Comment: mL/m in/1.73m2 CKD-EPI Creatinine Equation (2020) Performed By: #### L 101.9900, L501.1105, L501.6710, L500.3400, L100.0100 ####[facility] [address] [facility] [place], [place], [id number] Serum creatinine measurement (mass/volume)Ordered By: Fermin Alfred on 01-27-2025 Creatinine [Mass/Vol] 1.02 mg/dL 0.70-1.20 [facility] Serum globulin measurementOr dered By: Fermin Alfred on 01-27-2025 Globulin (S) [Mass/Vol] 3.3 g/dL 2.2-4.2 [facility] Serum or plasma C reactive p rotein measurement (mass/volume)Ordered By: Fermin Alfred on 01-27-2025 CRP [Mass/Vol] 6.30 mg/L High 0.0-3.0 [facility] Serum or plasma alanine leyva otransferase (ALT) measurementOrdered By: Fermin Alfred on 01-27-2025 ALT [Catalytic activity/Vol] 41 U/L <47 [facility] Serum or plasma albumin malachi urement (mass/volume)Ordered By: Fermin Alfred on 01-27-2025 Albumin [Mass/Vol] 4.4 g/dL 3.5-5.0 [facility] Serum or plasma alkaline krys sphatase measurementOrdered By: Fermin Alfred on 01-27-2025 ALP [Catalytic activity/Vol] 109 U/L 40-129 [facility] Total proteinOrdered By: Fredis Hobsonvallos on 01-27-2025 Protein [Mass/Vol] 7.7 g/dL 5.9-8.4 [facility] White blood cell (WBC) count Ordered By: Fermin Aubrie on 01-27-2025 WBC (Bld) [#/Vol] 6.1 10*3/uL 4.4-11.0 [facility] CBC W/Diff, Automatedon 11-0 Absolute Lymph 2.08 X10 3/uL Normal 0.83-4.51 [facility] Comment on above: Performed By: #### L 101.9900, L100.0100, L501.6710, L501.1105, L500.3400 #### [facility] [address] [place], [address] Absolute Neut 9.0 X10 3/uL High 2.0-7.7 [facility] Comment on above: Performed By: #### L 101.9900, L100.0100, L501.6710, L501.1105, L500.3400 #### [facility] [address] [place], [address] Basophils/100 WBC (Bld) 0.6 % Normal 0-1 [facility] Comment on above: Performed By: #### L 101.9900, L100.0100, L501.6710, L501.1105, L500.3400 #### [facility] [address] [place], [address] Eosinophils/100 WBC (Bld) 1.7 % Normal 0-5 [facility] Comment on above: Performed By: #### L 101.9900, L100.0100, L501.6710, L501.1105, L500.3400 #### [facility] [address] [place], [address] Erythrocyte distribution width (RBC) [Ratio] 13.1 % Normal 11.6-14.6 [facility] Comment on above: Performed By: #### L 101.9900, L100.0100, L501.6710, L501.1105, L500.3400 #### [facility] [address] [place], [address] Hematocrit (Bld) [Volume fraction] 42.4 % Normal 40-54 [facility] Comment on above: Performed By: #### L 101.9900, L100.0100, L501.6710, L501.1105, L500.3400 #### [facility] [address] [place], [address] Hemoglobin (Bld) [Mass/Vol] 14.2 g/dL Normal 13.0-16.5 [facility] Comment on above: Performed By: #### L 101.9900, L100.0100, L501.6710, L501.1105, L500.3400 #### [facility] [address] [place], [address] IG% 0.700 Normal 0.0-0.9 [facility] Comment on above: Result Comment: IG% - Immature Granulocytes (promyelocytes, myelocytes and metamyelocytes) > 1% indicates that a LEFT SHIFT is Present. Performed By: #### L 101.9900, L100.0100, L501.6710, L501.1105, L500.3400 #### [facility] [address] [place], [address] Lymphocytes/100 WBC (Bld) 16.2 % Low 19-41 [facility] Comment on above: Performed By: #### L 101.9900, L100.0100, L501.6710, L501.1105, L500.3400 #### [facility] [address] [place], [address] MCH (RBC) [Entitic mass] 29.4 pg Normal 27.0-32.0 [facility] Comment on above: Performed By: #### L 101.9900, L100.0100, L501.6710, L501.1105, L500.3400 #### [facility] [address] [place], [address] MCHC (RBC) [Mass/Vol] 33.5 g/dL Normal 32-36 [facility] Comment on above: Performed By: #### L 101.9900, L100.0100, L501.6710, L501.1105, L500.3400 #### [facility] [address], [address] MCV (RBC) [Entitic vol] 87.8 fL Normal 80-94 [facility] Comment on above: Performed By: #### L 101.9900, L100.0100, L501.6710, L501.1105, L500.3400 #### [facility] [address], [address] Monocytes/100 WBC (Bld) 10.8 % High 0-10 [facility] Comment on above: Performed By: #### L 101.9900, L100.0100, L501.6710, L501.1105, L500.3400 #### [facility] [address], [address] Neutrophils/100 WBC (Bld) 70.0 % Normal 47-70 [facility] Comment on above: Performed By: #### L 101.9900, L100.0100, L501.6710, L501.1105, L500.3400 #### [facility] [address] [place], [address] Nucleated RBC (Bld) [#/Vol] 0 10*3/uL Normal 0-5 [facility] Comment on above: Performed By: #### L 101.9900, L100.0100, L501.6710, L501.1105, L500.3400 #### [facility] [address] [place], [address] Platelet mean volume (Bld) [Entitic vol] 9.1 fL Normal 6.2-12.0 [facility] Comment on above: Performed By: #### L 101.9900, L100.0100, L501.6710, L501.1105, L500.3400 #### [facility] [address] [place], [address] Platelets (Bld) [#/Vol] 286 10*3/uL Normal 150-450 [facility] Comment on above: Performed By: #### L 101.9900, L100.0100, L501.6710, L501.1105, L500.3400 #### [facility] [address] [place], [address] RBC (Bld) [#/Vol] 4.83 10*6/uL Normal 4.6-6.[address] [facility] Comment on above: Performed By: #### L 101.9900, L100.0100, L501.6710, L501.1105, L500.3400 #### [facility] [address] [place], [address] RDW SD 42.0 fl Normal 35.1-43.9 [facility] Comment on above: Performed By: #### L 101.9900, L100.0100, L501.6710, L501.1105, L500.3400 #### [facility] [address] [place], [address] WBC (Bld) [#/Vol] 12.9 10*3/uL High 4.4-11.[address] [facility] Comment on above: Performed By: #### L 101.9900, L100.0100, L501.6710, L501.1105, L500.3400 #### [facility] [address] [place], [address] CRPon 10-01-2024 C-REACTIVE PROT < 2.90 Normal 0.0-3.0 [facility] Comment on above: Result Comment: C-Re active Protein (CRP) provides useful information for the diagnosis, therapy and monitoring of inflammatory processes and associated diseases. For the evaluation of Relative Risk for Cardiovascular Disease, a High Sensitivity CRP (HSCRP) should be ordered. Performed By: #### L 101.9900, L100.0100, L501.6710, L501.1105, L500.3400 ####[facility] [address] [place], [address] Erythrocyte Sed Rateon 10-01 SED RATE 2 mm/hr Normal 0-20 [facility] Comment on above: Performed By: #### L 101.9900, L100.0100, L501.6710, L501.1105, L500.3400 #### [facility] [address] [place], [address] Lipid Profileon 10-01-2024 Cholesterol [Mass/Vol] 244 mg/dL High 200 [facility] Comment on above: Result Comment: <200 mg/dL Desirable 200-240 mg/dL Borderline >240 mg/dL High Risk Performed By: #### L 501.9520, L500.4100 ####[facility] [address] [place], [address] Cholesterol in HDL [Mass/Vol] 64 mg/dL Normal [facility] Comment on above: Result Comment: The drugs N-Acetylcysteine and Metamizole may falsely depress this assay. Reference Range HDL <40 mg/dL Low HDL Cholesterol HDL >or= 60 mg/dL High HDL Cholesterol Performed By: #### L 501.9520, L500.4100 ####[facility] [address] [place], [address] Cholesterol in LDL [Mass/Vol] 156 mg/dL High 0-130 [facility] Comment on above: Performed By: #### L 501.9520, L500.4100 ####[facility] [address] [place], [address] Cholesterol in VLDL [Mass/Vol] 24 mg/dL Normal 5-40 [facility] Comment on above: Performed By: #### L 501.9520, L500.4100 ####[facility] [address] [place], [address] Triglyceride [Mass/Vol] 122 mg/dL Normal [facility] Comment on above: Result Comment: The drugs N-Acetylcysteine and Metamizole may falsely depress this assay. Serum Triglycerides Reference Interval Normal <150 mg/dL Borderline high 150 - 199 mg/dL High 200 - 499 mg/dL Very High > or = 500 mg/dL Performed By: #### L 501.9520, L500.4100 ####[facility] [address] [place], [address] Liver Profileon 10-01-2024 Albumin [Mass/Vol] 3.6 g/dL Normal 3.2-5.0 [facility] Comment on above: Performed By: #### L 101.9900, L100.0100, L501.6710, L501.1105, L500.3400 ####[facility] [address] [place], [address] ALK P 83 U/L Normal 45-117 [facility] Comment on above: Performed By: #### L 101.9900, L100.0100, L501.6710, L501.1105, L500.3400 ####[facility] [address] [place], [address] ALT [Catalytic activity/Vol] 102 U/L High 16-61 [facility] Comment on above: Performed By: #### L 101.9900, L100.0100, L501.6710, L501.1105, L500.3400 ####[facility] [address] [place], [address] AST [Catalytic activity/Vol] 82 U/L High 15-37 [facility] Comment on above: Performed By: #### L 101.9900, L100.0100, L501.6710, L501.1105, L500.3400 ####[facility] [address] [place], [address] Bilirubin [Mass/Vol] 0.60 mg/dL Normal 0.20-1.00 [facility] Comment on above: Result Comment: For patients on eltrombopag therapy, use of Dimension [place] TBIL is not recommended. Performed By: #### L 101.9900, L100.0100, L501.6710, L501.1105, L500.3400 ####[facility] [address] [place], [address] Bilirubin.direct [Mass/Vol] 0.15 mg/dL Normal 0.00-0.30 [facility] Comment on above: Performed By: #### L 101.9900, L100.0100, L501.6710, L501.1105, L500.3400 ####[facility] [address] [place], [address] Globulin (S) [Mass/Vol] 3.4 g/dL Normal 2.2-4.2 [facility] Comment on above: Performed By: #### L 101.9900, L100.0100, L501.6710, L501.1105, L500.3400 ####[facility] [address] [place], [address] T PROT 7.0 g/dL Normal 6.4-8.2 [facility] Comment on above: Performed By: #### L 101.9900, L100.0100, L501.6710, L501.1105, L500.3400 ####[facility] [address] [place], [address] Serum Creatinine AND GFRon 1 12-01-2023 Creatinine [Mass/Vol] 1.06 mg/dL Normal 0.70-1.30 [facility] Comment on above: Result Comment: The validity of the calculated GFR GFRAA in patients over 70 years has not been determined. Clinical correlation is essential. Performed By: #### L 101.9900, L100.0100, L501.6710, L501.1105, L500.3400 ####[facility] [address] [place], [address] EST GFR - AA 93 mL/min Normal >60 [facility] Comment on above: Result Comment: Afri can Macedonian GFR Calc Performed By: #### L 101.9900, L100.0100, L501.6710, L501.1105, L500.3400 ####[facility] [address] [place], [address] GFR/1.73 sq M.predicted among non-blacks MDRD (S/P/Bld) [Vol rate/Area] 77 mL/min/{1.73_m2} Normal >60 [facility] Comment on above: Result Comment: Non- GFR Calc Performed By: #### L 101.9900, L100.0100, L501.6710, L501.1105, L500.3400 ####[facility] [address] [place], [address] Thyroid Stim Hormone (TSH)on 10-01-2024 TSH 0.694 uIU/mL Normal 0.358-3.74 0 [facility] Comment on above: Performed By: #### L 501.9520, L500.4100 ####[facility] [address] [place], [address] Absolute lymphocyte counton 12-21-2023 Lymphocytes Auto (Unsp spec) [#/Vol] 1.43 10*3/uL 0.83-4.51 [facility] Automated lymphocyte count a s percentage of total leukocyteson 12-21-2023 Lymphocytes/100 WBC Auto (Unsp spec) 16.9 % 19-41 [facility] Basophil percentageon 2023 Basophils/100 WBC (Bld) 0.9 % 0-1 [facility] Bilirubin [Mass/Vol] 0.60 mg/dL 0.20-1.00 [facility] Comment on above: For patients on eltr ombopag therapy, use of Dimension [place] TBIL is not recommended. Eosinophils/100 WBC (Bld) 2.2 % 0-5 [facility] Hemoglobin (Bld) [Mass/Vol] 14.7 g/dL 13.0-16.5 [facility] Monocytes/100 WBC (Bld) 11.7 % 0-10 [facility] Neutrophils (Bld) [#/Vol] 5.7 10*3/uL 2.0-7.7 [facility] Neutrophils/100 WBC (Bld) 67.9 % 47-70 [facility] Protein [Mass/Vol] 7.2 g/dL 6.4-8.2 [facility] WBC (Bld) [#/Vol] 8.5 10*3/uL 4.4-11.0 [facility] Determination of erythrocyte mean corpuscular volume (MCV)on 12-21-2023 MCV (RBC) [Entitic vol] 89.2 fL 80-94 [facility] Direct bilirubinon Bilirubin.direct [Mass/Vol] 0.17 mg/dL 0.00-0.30 [facility] Erythrocyte distribution wid th ratioon 12-21-2023 Erythrocyte distribution width (RBC) [Ratio] 13.0 % 11.6-14.6 [facility] Erythrocyte distribution wid th standard deviationon 12-21-2023 Erythrocyte distribution width (RBC) [Entitic vol] 42.6 fL 35.1-43.9 [facility] Erythrocyte sedimentation ra arcelia 12-21-2023 ESR (Bld) [Velocity] 5 mm/h 0-20 [facility] Hematocrit Auto (Bld) [Volum e fraction]on 12-21-2023 Hematocrit (Bld) [Volume fraction] 45.6 % 40-54 [facility] Immature granulocytes/100 WB C Auto (Bld)on 12-21-2023 Immature granulocytes/100 WBC (Bld) 0.400 % 0.0-0.9 [facility] Comment on above: IG% - Immature Granu locytes (promyelocytes, myelocytes and metamyelocytes) > 1% indicates that a LEFT SHIFT is Present. Laboratory - Chemistry and C hemistry - challengeon 12-21-2023 ALP [Catalytic activity/Vol] 78 U/L 45-117 [facility] ALT [Catalytic activity/Vol] 32 U/L 16-61 [facility] Globulin (S) [Mass/Vol] 3.5 g/dL 2.2-4.2 [facility] Laboratory - Hematology and Cell countson 12-21-2023 MCH (RBC) [Entitic mass] 28.8 pg 27.0-32.0 [facility] MCHC (RBC) [Mass/Vol] 32.2 g/dL 32-36 [facility] Nucleated RBC/100 WBC (Bld) [Ratio] 0 % 0-5 [facility] Platelets (Bld) [#/Vol] 243 10*3/uL 150-450 [facility] No Panel Informationon 12-21 C-Reactive Protein Extended Range < 2.90 mg/L 0.0-3.0 [facility] Comment on above: C-Reactive Protein ( CRP) provides useful information for thediagnosis, therapy and monitoring of inflammatory processesand associated diseases. For the evaluation of Relative Riskfor Cardiovascular Disease, a High Sensitivity CRP (HSCRP)should be ordered. Estimated GFR (MDRD) Amer 91 mL/min >60 [facility] Comment on above: GFR Calc Estimated GFR (MDRD) Non-Af Amer 75 mL/min >60 [facility] Comment on above: Non- GFR Calc Platelet mean volume Ike-Ec ker (Bld) [Entitic vol]on 12-21-2023 Platelet mean volume (Bld) [Entitic vol] 10.7 fL 6.2-12.0 [facility] RBC Auto (Bld) [#/Vol]on RBC (Bld) [#/Vol] 5.11 10*6/uL 4.6-6.[address] [facility] Serum or plasma creatinine m easurement (mass/volume)on 12-21-2023 Creatinine [Mass/Vol] 1.08 mg/dL 0.70-1.30 [facility] Comment on above: The validity of the calculated GFR & GFRAA in patients over 70 years has not been determined. Clinical correlation is essential. Thin prep Papanicolaou smear with manual screeningon 12-21-2023 Thin prep Papanicolaou smear with manual screening 3.7 g/dL 3.2-5.0 [facility] Thin prep Papanicolaou smear with manual screening 39 U/L 15-37 [facility] Absolute lymphocyte countOrd ered By: Dr. Alfred on 01-31-2023 Lymphocytes Auto (Unsp spec) [#/Vol] 1.88 10*3/uL 0.83-4.51 [facility] Basophil percentageOrdered B y: Dr. Alfred on 01-31-2023 Basophils/100 WBC (Bld) 0.6 % 0-1 [facility] Bilirubin [Mass/Vol] 0.70 mg/dL 0.20-1.00 [facility] Comment on above: For patients on eltr ombopag therapy, use of Dimension [place] TBIL is not recommended. Cholesterol [Mass/Vol] 168 mg/dL <200 [facility] Comment on above: <200 mg/dL Desirable 200-240 mg/dL Borderline >240 mg/dL High Risk Eosinophils/100 WBC (Bld) 1.5 % 0-5 [facility] Neutrophils (Bld) [#/Vol] 6.9 10*3/uL 2.0-7.7 [facility] Neutrophils/100 WBC (Bld) 67.8 % 47-70 [facility] Protein [Mass/Vol] 7.8 g/dL 6.4-8.2 [facility] Triglyceride [Mass/Vol] 90 mg/dL <199 [facility] Comment on above: The drugs N-Acetylcy steine and Metamizole may falsely depress this assay.Serum Triglycerides Reference Interval Normal <150 mg/dL Borderline high 150 - 199 mg/dL High 200 - 499 mg/dL Very High > or = 500 mg/dL WBC (Bld) [#/Vol] 10.1 10*3/uL 4.4-11.[address] [facility] Blood erythrocytes count (nu mber/volume)Ordered By: Dr. Alfred on 01-31-2023 RBC (Bld) [#/Vol] 5.11 10*6/uL 4.6-6.[address] [facility] Blood hemoglobin measurement (mass/volume)Ordered By: Dr. Alfred on 01-31-2023 Hemoglobin (Bld) [Mass/Vol] 14.8 g/dL 13.0-16.5 [facility] Blood lymphocytes/100 leukoc ytesOrdered By: Dr. Alfred on 01-31-2023 Lymphocytes/100 WBC (Bld) 18.6 % 19-41 [facility] Blood monocytes/100 leukocyt esOrdered By: Dr. Alfred on 01-31-2023 Monocytes/100 WBC (Bld) 11.1 % 0-10 [facility] Blood platelet mean volumeOr dered By: Dr. Alfred on 01-31-2023 Platelet mean volume (Bld) [Entitic vol] 9.9 fL 6.2-12.0 [facility] Determination of erythrocyte mean corpuscular volume (MCV)Ordered By: Dr. Alfred on 01-31-2023 MCV (RBC) [Entitic vol] 89.2 fL 80-94 [facility] Direct bilirubinOrdered By: Dr. Alfred on 01-31-2023 Bilirubin.direct [Mass/Vol] 0.18 mg/dL 0.00-0.30 [facility] Hematocrit Auto (Bld) [Volum e fraction]Ordered By: Dr. Alfred on 01-31-2023 Hematocrit (Bld) [Volume fraction] 45.6 % 40-54 [facility] Laboratory - Chemistry and C hemistry - challengeOrdered By: Dr. Alfred on 01-31-2023 ALP [Catalytic activity/Vol] 104 U/L 45-117 [facility] ALT [Catalytic activity/Vol] 32 U/L 16-61 [facility] Globulin (S) [Mass/Vol] 3.9 g/dL 2.2-4.2 [facility] Laboratory - Hematology and Cell countsOrdered By: Dr. Alfred on 01-31-2023 Erythrocyte distribution width (RBC) [Entitic vol] 43.0 fL 35.1-43.9 [facility] Erythrocyte distribution width (RBC) [Ratio] 13.1 % 11.6-14.6 [facility] Immature granulocytes/100 WBC (Bld) 0.400 % 0.0-0.9 [facility] Comment on above: IG% - Immature Granu locytes (promyelocytes, myelocytes and metamyelocytes) > 1% indicates that a LEFT SHIFT is Present. MCH (RBC) [Entitic mass] 29.0 pg 27.0-32.0 [facility] Nucleated RBC/100 WBC (Bld) [Ratio] 0 % 0-5 [facility] MCHC Auto (RBC) [Mass/Vol]Or dered By: Dr. Alfred on 01-31-2023 MCHC (RBC) [Mass/Vol] 32.5 g/dL 32-36 [facility] No Panel InformationOrdered By: Dr. Alfred on 01-31-2023 Estimated GFR (MDRD) Amer 100 mL/min >60 [facility] Comment on above: GFR Calc Estimated GFR (MDRD) Non-Af Amer 83 mL/min >60 [facility] Comment on above: Non- GFR Calc Platelets bldOrdered By: Dr. Alfred on 01-31-2023 Platelets (Bld) [#/Vol] 342 10*3/uL 150-450 [facility] Serum or plasma albumin malachi urement (mass/volume)Ordered By: Dr. Alfred on 01-31-2023 Albumin [Mass/Vol] 3.9 g/dL 3.2-5.0 [facility] Serum or plasma cholesterol in HDL measurement (mass/volume)Ordered By: Dr. Alfred on 01-31-2023 Cholesterol in HDL [Mass/Vol] 60 mg/dL >40 [facility] Comment on above: The drugs N-Acetylcy steine and Metamizole may falsely depress this assay. Reference Range HDL <40 mg/dL Low HDL Cholesterol HDL >or= 60 mg/dL High HDL Cholesterol Serum or plasma cholesterol in VLDL measurement (mass/volume)Ordered By: Dr. Alfred on 01-31-2023 Cholesterol in VLDL [Mass/Vol] 18 mg/dL 5-40 [facility] Serum or plasma creatinine m easurement (mass/volume)Ordered By: Dr. Alfred on 01-31-2023 Creatinine [Mass/Vol] 1.00 mg/dL 0.70-1.30 [facility] Comment on above: The validity of the calculated GFR & GFRAA in patients over 70 years has not been determined. Clinical correlation is essential. Serum or plasma low density lipoprotein (LDL) cholesterol measurement (mass/volume)Ordered By: Dr. Alfred on 01-31-2023 Cholesterol in LDL [Mass/Vol] 90 mg/dL 0-130 [facility] Thin prep Papanicolaou smear with manual screeningOrdered By: Dr. Alfred on 01-31-2023 Thin prep Papanicolaou smear with manual screening 37 U/L 15-37 [facility] Absolute lymphocyte countOrd ered By: Dr. Alfred on 10-11-2022 Lymphocytes Auto (Unsp spec) [#/Vol] 1.38 10*3/uL 0.83-4.51 [facility] Basophil percentageOrdered B y: Dr. Alfred on 10-11-2022 Basophils/100 WBC (Bld) 1.1 % 0-1 [facility] Bilirubin [Mass/Vol] 0.60 mg/dL 0.20-1.00 [facility] Comment on above: For patients on eltr ombopag therapy, use of Dimension [place] TBIL is not recommended. Cholesterol [Mass/Vol] 286 mg/dL <200 [facility] Comment on above: <200 mg/dL Desirable 200-240 mg/dL Borderline >240 mg/dL High Risk Eosinophils/100 WBC (Bld) 2.0 % 0-5 [facility] Neutrophils (Bld) [#/Vol] 4.9 10*3/uL 2.0-7.7 [facility] Neutrophils/100 WBC (Bld) 65.5 % 47-70 [facility] Protein [Mass/Vol] 7.4 g/dL 6.4-8.2 [facility] Triglyceride [Mass/Vol] 234 mg/dL <199 [facility] Comment on above: The drugs N-Acetylcy steine and Metamizole may falsely depress this assay.Serum Triglycerides Reference Interval Normal <150 mg/dL Borderline high 150 - 199 mg/dL High 200 - 499 mg/dL Very High > or = 500 mg/dL WBC (Bld) [#/Vol] 7.4 10*3/uL 4.4-11.0 [facility] Blood erythrocytes count (nu mber/volume)Ordered By: Dr. Alfred on 10-11-2022 RBC (Bld) [#/Vol] 5.13 10*6/uL 4.6-6.[address] [facility] Blood hemoglobin measurement (mass/volume)Ordered By: Dr. Alfred on 10-11-2022 Hemoglobin (Bld) [Mass/Vol] 15.2 g/dL 13.0-16.5 [facility] Blood lymphocytes/100 leukoc ytesOrdered By: Dr. Alfred on 10-11-2022 Lymphocytes/100 WBC (Bld) 18.6 % 19-41 [facility] Blood monocytes/100 leukocyt esOrdered By: Dr. Alfred on 10-11-2022 Monocytes/100 WBC (Bld) 12.4 % 0-10 [facility] Blood platelet mean volumeOr dered By: Dr. Alfred on 10-11-2022 Platelet mean volume (Bld) [Entitic vol] 9.1 fL 6.2-12.0 [facility] Determination of erythrocyte mean corpuscular volume (MCV)Ordered By: Dr. Alfred on 10-11-2022 MCV (RBC) [Entitic vol] 89.9 fL 80-94 [facility] Direct bilirubinOrdered By: Dr. Alfred on 10-11-2022 Bilirubin.direct [Mass/Vol] 0.15 mg/dL 0.00-0.30 [facility] Hematocrit Auto (Bld) [Volum e fraction]Ordered By: Dr. Alfred on 10-11-2022 Hematocrit (Bld) [Volume fraction] 46.1 % 40-54 [facility] Laboratory - Chemistry and C hemistry - challengeOrdered By: Dr. Alfred on 11-19-2022 ALP [Catalytic activity/Vol] 73 U/L 45-117 [facility] ALT [Catalytic activity/Vol] 31 U/L 16-61 [facility] Globulin (S) [Mass/Vol] 3.8 g/dL 2.2-4.2 [facility] Laboratory - Hematology and Cell countsOrdered By: Dr. Alfred on 10-11-2022 Erythrocyte distribution width (RBC) [Entitic vol] 42.7 fL 35.1-43.9 [facility] Erythrocyte distribution width (RBC) [Ratio] 13.0 % 11.6-14.6 [facility] Immature granulocytes/100 WBC (Bld) 0.400 % 0.0-0.9 [facility] Comment on above: IG% - Immature Granu locytes (promyelocytes, myelocytes and metamyelocytes) > 1% indicates that a LEFT SHIFT is Present. MCH (RBC) [Entitic mass] 29.6 pg 27.0-32.0 [facility] Nucleated RBC/100 WBC (Bld) [Ratio] 0 % 0-5 [facility] MCHC Auto (RBC) [Mass/Vol]Or dered By: Dr. Alfred on 10-11-2022 MCHC (RBC) [Mass/Vol] 33.0 g/dL 32-36 [facility] No Panel InformationOrdered By: Dr. Alfred on 10-11-2022 Estimated GFR (MDRD) Amer 89 mL/min >60 [facility] Comment on above: GFR Calc Estimated GFR (MDRD) Non-Af Amer 74 mL/min >60 [facility] Comment on above: Non- GFR Calc Thyroid Stimulating Hormone (TSH) 4.45 uIU/mL 0.358-3.74 [facility] Platelets bldOrdered By: Dr. Alfred on 10-11-2022 Platelets (Bld) [#/Vol] 259 10*3/uL 150-450 [facility] Serum or plasma albumin malachi urement (mass/volume)Ordered By: Dr. Alfred on 10-11-2022 Albumin [Mass/Vol] 3.6 g/dL 3.2-5.0 [facility] Serum or plasma cholesterol in HDL measurement (mass/volume)Ordered By: Dr. Alfred on 10-11-2022 Cholesterol in HDL [Mass/Vol] 51 mg/dL >40 [facility] Comment on above: The drugs N-Acetylcy steine and Metamizole may falsely depress this assay. Reference Range HDL <40 mg/dL Low HDL Cholesterol HDL >or= 60 mg/dL High HDL Cholesterol Serum or plasma cholesterol in VLDL measurement (mass/volume)Ordered By: Dr. Alfred on 10-11-2022 Cholesterol in VLDL [Mass/Vol] 47 mg/dL 5-40 [facility] Serum or plasma creatinine m easurement (mass/volume)Ordered By: Dr. Alfred on 10-11-2022 Creatinine [Mass/Vol] 1.10 mg/dL 0.70-1.30 [facility] Comment on above: The validity of the calculated GFR & GFRAA in patients over 70 years has not been determined. Clinical correlation is essential. Serum or plasma low density lipoprotein (LDL) cholesterol measurement (mass/volume)Ordered By: Dr. Alfred on 10-11-2022 Cholesterol in LDL [Mass/Vol] 188 mg/dL 0-130 [facility] Thin prep Papanicolaou smear with manual screeningOrdered By: Dr. Alfred on 10-11-2022 Thin prep Papanicolaou smear with manual screening 34 U/L 15-37 [facility] Absolute lymphocyte counton 07-09-2022 Lymphocytes Auto (Unsp spec) [#/Vol] 1.55 10*3/uL 0.83-4.51 [facility] Work Phone: Basophil percentageon 2021 Basophils/100 WBC (Bld) 0.8 % 0-1 [facility] Work Phone: Bilirubin [Mass/Vol] 0.40 mg/dL 0.20-1.00 [facility] Work Phone: Comment on above: For patients on eltr ombopag therapy, use of Dimension [place] TBIL is not recommended. Eosinophils/100 WBC (Bld) 0.9 % 0-5 [facility] Work Phone: Neutrophils (Bld) [#/Vol] 5.6 10*3/uL 2.0-7.7 [facility] Work Phone: Neutrophils/100 WBC (Bld) 65.3 % 47-70 [facility] Work Phone: Protein [Mass/Vol] 7.5 g/dL 6.4-8.2 [facility] Work Phone: WBC (Bld) [#/Vol] 8.6 10*3/uL 4.4-11.0 [facility] Work Phone: Blood erythrocytes count (nu mber/volume)on 07-09-2022 RBC (Bld) [#/Vol] 4.85 10*6/uL 4.6-6.[address] [facility] Work Phone: Blood hemoglobin measurement (mass/volume)on 07-09-2022 Hemoglobin (Bld) [Mass/Vol] 14.3 g/dL 13.0-16.5 [facility] Work Phone: [phone] Blood lymphocytes/100 leukoc yteson 07-09-2022 Lymphocytes/100 WBC (Bld) 18.0 % 19-41 [facility] Work Phone: Blood monocytes/100 leukocyt eson 07-09-2022 Monocytes/100 WBC (Bld) 14.4 % 0-10 [facility] Work Phone: Blood platelet mean volumeon 07-09-2022 Platelet mean volume (Bld) [Entitic vol] 9.5 fL 6.2-12.0 [facility] Work Phone: Determination of erythrocyte mean corpuscular volume (MCV)on 07-09-2022 MCV (RBC) [Entitic vol] 90.1 fL 80-94 [facility] Work Phone: Direct bilirubinon 2 Bilirubin.direct [Mass/Vol] 0.08 mg/dL 0.00-0.30 [facility] Work Phone: Hematocrit Auto (Bld) [Volum e fraction]on 07-09-2022 Hematocrit (Bld) [Volume fraction] 43.7 % 40-54 [facility] Work Phone: Laboratory - Chemistry and C hemistry - challengeon 07-09-2022 ALP [Catalytic activity/Vol] 80 U/L 45-117 [facility] Work Phone: ALT [Catalytic activity/Vol] 29 U/L 16-61 [facility] Work Phone: Globulin (S) [Mass/Vol] 4.0 g/dL 2.2-4.2 [facility] Work Phone: Laboratory - Hematology and Cell countson 07-09-2022 Erythrocyte distribution width (RBC) [Entitic vol] 43.6 fL 35.1-43.9 [facility] Work Phone: Erythrocyte distribution width (RBC) [Ratio] 13.2 % 11.6-14.6 [facility] Work Phone: Immature granulocytes/100 WBC (Bld) 0.600 % 0.0-0.9 [facility] Work Phone: Comment on above: IG% - Immature Granu locytes (promyelocytes, myelocytes and metamyelocytes) > 1% indicates that a LEFT SHIFT is Present. MCH (RBC) [Entitic mass] 29.5 pg 27.0-32.0 [facility] Work Phone: Nucleated RBC/100 WBC (Bld) [Ratio] 0 % 0-5 [facility] Work Phone: MCHC Auto (RBC) [Mass/Vol]on 07-09-2022 MCHC (RBC) [Mass/Vol] 32.7 g/dL 32-36 [facility] Work Phone: No Panel Informationon 07-09 Estimated GFR (MDRD) Amer 83 mL/min >60 [facility] Work Phone: Comment on above: GFR Calc Estimated GFR (MDRD) Non-Af Amer 69 mL/min >60 [facility] Work Phone: Comment on above: Non- GFR Calc Platelets bldon 07-09-2022 Platelets (Bld) [#/Vol] 267 10*3/uL 150-450 [facility] Work Phone: Serum or plasma albumin malachi urement (mass/volume)on 07-09-2022 Albumin [Mass/Vol] 3.5 g/dL 3.2-5.0 [facility] Work Phone: Serum or plasma creatinine m easurement (mass/volume)on 07-09-2022 Creatinine [Mass/Vol] 1.17 mg/dL 0.70-1.30 [facility] Work Phone: Comment on above: The validity of the calculated GFR & GFRAA in patients over 70 years has not been determined. Clinical correlation is essential. Thin prep Papanicolaou smear with manual screeningon 07-09-2022 Thin prep Papanicolaou smear with manual screening 38 U/L 15-37 [facility] Work Phone: Absolute lymphocyte counton 03-31-2022 Lymphocytes Auto (Unsp spec) [#/Vol] 1.55 10*3/uL 0.83-4.51 [facility] Work Phone: Basophil percentageon 2021 Basophils/100 WBC (Bld) 0.8 % 0-1 [facility] Work Phone: Bilirubin [Mass/Vol] 0.50 mg/dL 0.20-1.00 [facility] Work Phone: Comment on above: For patients on eltr ombopag therapy, use of Dimension [place] TBIL is not recommended. Eosinophils/100 WBC (Bld) 0.5 % 0-5 [facility] Work Phone: Neutrophils (Bld) [#/Vol] 6.4 10*3/uL 2.0-7.7 [facility] Work Phone: Neutrophils/100 WBC (Bld) 68.7 % 47-70 [facility] Work Phone: Protein [Mass/Vol] 8.1 g/dL 6.4-8.2 [facility] Work Phone: WBC (Bld) [#/Vol] 9.3 10*3/uL 4.4-11.0 [facility] Work Phone: Blood erythrocytes count (nu mber/volume)on 03-31-2022 RBC (Bld) [#/Vol] 5.22 10*6/uL 4.6-6.[address] [facility] Work Phone: Blood hemoglobin measurement (mass/volume)on 03-31-2022 Hemoglobin (Bld) [Mass/Vol] 15.7 g/dL 13.0-16.5 [facility] Work Phone: Blood lymphocytes/100 leukoc yteson 03-31-2022 Lymphocytes/100 WBC (Bld) 16.7 % 19-41 [facility] Work Phone: Blood monocytes/100 leukocyt eson 03-31-2022 Monocytes/100 WBC (Bld) 13.0 % 0-10 [facility] Work Phone: Blood platelet mean volumeon 03-31-2022 Platelet mean volume (Bld) [Entitic vol] 9.8 fL 6.2-12.0 [facility] Work Phone: Determination of erythrocyte mean corpuscular volume (MCV)on 03-31-2022 MCV (RBC) [Entitic vol] 89.5 fL 80-94 [facility] Work Phone: Direct bilirubinon 2 Bilirubin.direct [Mass/Vol] 0.13 mg/dL 0.00-0.30 [facility] Work Phone: Hematocrit Auto (Bld) [Volum e fraction]on 03-31-2022 Hematocrit (Bld) [Volume fraction] 46.7 % 40-54 [facility] Work Phone: Laboratory - Chemistry and C hemistry - challengeon 03-31-2022 ALP [Catalytic activity/Vol] 87 U/L 45-117 [facility] Work Phone: ALT [Catalytic activity/Vol] 33 U/L 16-61 [facility] Work Phone: Globulin (S) [Mass/Vol] 4.1 g/dL 2.2-4.2 [facility] Work Phone: Laboratory - Hematology and Cell countson 03-31-2022 Erythrocyte distribution width (RBC) [Entitic vol] 41.9 fL 35.1-43.9 [facility] Work Phone: Erythrocyte distribution width (RBC) [Ratio] 12.7 % 11.6-14.6 [facility] Work Phone: Immature granulocytes/100 WBC (Bld) 0.300 % 0.0-0.9 [facility] Work Phone: Comment on above: IG% - Immature Granu locytes (promyelocytes, myelocytes and metamyelocytes) > 1% indicates that a LEFT SHIFT is Present. MCH (RBC) [Entitic mass] 30.1 pg 27.0-32.0 [facility] Work Phone: Nucleated RBC/100 WBC (Bld) [Ratio] 0 % 0-5 [facility] Work Phone: MCHC Auto (RBC) [Mass/Vol]on 03-31-2022 MCHC (RBC) [Mass/Vol] 33.6 g/dL 32-36 [facility] Work Phone: No Panel Informationon 03-31 Estimated GFR (MDRD) Amer 88 mL/min >60 [facility] Work Phone: Comment on above: GFR Calc Estimated GFR (MDRD) Non-Af Amer 72 mL/min >60 [facility] Work Phone: Comment on above: Non- GFR Calc Platelets bldon 03-31-2022 Platelets (Bld) [#/Vol] 320 10*3/uL 150-450 [facility] Work Phone: Serum or plasma albumin malachi urement (mass/volume)on 03-31-2022 Albumin [Mass/Vol] 4.0 g/dL 3.2-5.0 [facility] Work Phone: Serum or plasma creatinine m easurement (mass/volume)on 03-31-2022 Creatinine [Mass/Vol] 1.12 mg/dL 0.70-1.30 [facility] Work Phone: Comment on above: The validity of the calculated GFR & GFRAA in patients over 70 years has not been determined. Clinical correlation is essential. Thin prep Papanicolaou smear with manual screeningon 03-31-2022 Thin prep Papanicolaou smear with manual screening 42 U/L 15-37 [facility] Work Phone: Clinical Summary: Favian shah 03-12-2022 MC25 OP Hand Invalid Interpretation Code [facility] Work Phone: Clinical Summary: [facility] 01-31-2022 MC25 OP Hand Invalid Interpretation Code [facility] Work Phone: Office Visit: New - [facility] visi t with practice, Rm:on 01-31-2022 NEGATED: Highlighted rowEMG (electromyograph) history of the left upper extremity on 01/13/2022 at [facility] Invalid Interpretation Code [facility] Work Phone: NEGATED: Highlighted rowxray history of the left wrist on 01/06/2022 at [facility] , of the left elbow on 09/17/2021 at [facility] Invalid Interpretation Code [facility] Work Phone: Clinical Lists Update: Prelo ad Extendedon 01-28-2022 Tobacco smoking status Tobacco smoking status Invalid Interpretation Code [facility] Work Phone: Clinical Summary: Outcome Hewitt mmaryon 01-28-2022 QuickDASH Assessment Final Score 68 Invalid Interpretation Code [facility] Work Phone: QuickDASH Assessment item 1 5 Invalid Interpretation Code [facility] Work Phone: QuickDASH Assessment item 10 3 Invalid Interpretation Code [facility] Work Phone: QuickDASH Assessment item 11 3 Invalid Interpretation Code [facility] Work Phone: QuickDASH Assessment item 2 4 Invalid Interpretation Code [facility] Work Phone: QuickDASH Assessment item 3 3 Invalid Interpretation Code [facility] Work Phone: QuickDASH Assessment item 4 3 Invalid Interpretation Code [facility] Work Phone: QuickDASH Assessment item 5 3 Invalid Interpretation Code [facility] Work Phone: QuickDASH Assessment item 6 5 Invalid Interpretation Code [facility] Work Phone: QuickDASH Assessment item 7 4 Invalid Interpretation Code [facility] Work Phone: QuickDASH Assessment item 8 4 Invalid Interpretation Code [facility] Work Phone: QuickDASH Assessment item 9 4 Invalid Interpretation Code [facility] Work Phone: diagnostic criteria for SLE #1 3 Invalid Interpretation Code [facility] Work Phone: diagnostic criteria for SLE #10 2 Invalid Interpretation Code [facility] Work Phone: diagnostic criteria for SLE #11 8 Invalid Interpretation Code [facility] Work Phone: diagnostic criteria for SLE #12 11 Invalid Interpretation Code [facility] Work Phone: diagnostic criteria for SLE #13 29.6 Invalid Interpretation Code [facility] Work Phone: diagnostic criteria for SLE #14 41.1 Invalid Interpretation Code [facility] Work Phone: diagnostic criteria for SLE #15 [id number] Invalid Interpretation Code [facility] Work Phone: diagnostic criteria for SLE #2 2 Invalid Interpretation Code [facility] Work Phone: diagnostic criteria for SLE #3 2 Invalid Interpretation Code [facility] Work Phone: diagnostic criteria for SLE #4 2 Invalid Interpretation Code [facility] Work Phone: diagnostic criteria for SLE #5 3 Invalid Interpretation Code [facility] Work Phone: diagnostic criteria for SLE #6 2 Invalid Interpretation Code [facility] Work Phone: diagnostic criteria for SLE #7 3 Invalid Interpretation Code [facility] Work Phone: diagnostic criteria for SLE #8 4 Invalid Interpretation Code [facility] Work Phone: diagnostic criteria for SLE #9 3 Invalid Interpretation Code [facility] Work Phone: Clinical Summary: Scanned Hi story Summaryon 01-28-2022 adl form etoh alcohol performance beer, wine Invalid Interpretation Code [facility] Work Phone: Beta HCG ( test) Ql (U) 2 or more times per year Invalid Interpretation Code [facility] [facility]: cause of , father Parkinson's Invalid Interpretation Code [facility] Work Phone: consumes three or more drinks of alcohol (beer, wine, liquor) daily or almost daily 1 drink per day Invalid Interpretation Code [facility] Work Phone: data entered by patient, alcohol (ethanol or ETOH) use Yes Invalid Interpretation Code [facility] Work Phone: Data entered by patient, allergy list I don't have any Drug Allergies I don't have any Environmental Allergies I don't have any Food Allergies Invalid Interpretation Code [facility] Work Phone: data entered by patient, drug (of abuse) use No Invalid Interpretation Code [facility] Work Phone: data entered by patient, Employer Name unemployed Invalid Interpretation Code [facility] Work Phone: data entered by patient, exercise history No Invalid Interpretation Code [facility] Work Phone: data entered by patient, father's medical history Alzheimer Heart disease Invalid Interpretation Code [facility] Work Phone: Data entered by patient, history of past surgeries Carpal tunnel Foot surgery Hernia repair Tonsillectomy Invalid Interpretation Code [facility] Work Phone: Data entered by patient, medication list metoprolol succinate-100 mg-1-Qd escitalopram oxalate-10 mg-1-Qd amitriptyline-100 mg-1-Qhs cyclobenzaprine hcl-10 mg-1-Qhs celecoxib-100 mg-1-Bid leflunomide-20 mg-1-Qd [id number] -Qd Invalid Interpretation Code [facility] Work Phone: data entered by patient, mother's medical history Hypothyroidism Invalid Interpretation Code [facility] Work Phone: data entered by patient, past medical history Arthritis Fractures High blood pressure Invalid Interpretation Code [facility] Work Phone: data entered by patient, social history, current smoker never smoker Invalid Interpretation Code [facility] Work Phone: data entered by patient, social history, marital status Invalid Interpretation Code [facility] Work Phone: father of patient is alive or Invalid Interpretation Code [facility] Work Phone: Housing Type: apartment, house, long term, trailer, none house Invalid Interpretation Code [facility] Work Phone: housing unit size (asthma environmental history, housing) (from single family to don't know) 2 floors Invalid Interpretation Code [facility] Work Phone: medical history of patient's brother(s) My brother's health history is unknown Invalid Interpretation Code [facility] Work Phone: medical history of patient's sister My sister's health history is unknown Invalid Interpretation Code [facility] Work Phone: mother of patient is alive or Alive Invalid Interpretation Code [facility] Work Phone: Number of dependent children No Invalid Interpretation Code [facility] Work Phone: BRITTNEYOVon 10-21-2018 CNOV Office Visit (ENDOMN) NICKIE BROWNE ([id number]) 1965 [facility] Ailjfchixm26/29/18 3:00 PM CORINNE BUSTAMANTE During your visit today, we recorded the following information about you: Pulse Blood pressure Weight Height 79/minute 131/78 78.6 kg 1.703 Nena Garza 10/21/2018 3:01 PM SignedThank you for choosing the [facility] Department [facility] Endocrinology,Diabetes and Metabolism. Being able to provide excellent health care hasallowed us to be # 3 in the country according to US[employer] AND World Report.Did you know that you need to call 48 hours in advance of your scheduled visit,if you are unable to make your appointment? [facility] thanks you for your commitment, because patients not showing to theirappointment results in a lost opportunity for patients to receive [facility] care at the [facility].To Cancel an appointment, please choose one of the following: - Call the Appointment Call Center at [phone] - [place], Go to Appointments ? Cancel ApptsIf cancelling, consider your need to reschedule to prevent further delays inyour care.To Schedule an appointment, please choose one of the following: - Call the Appointment Call Center at [phone] - [place], Go to Appointments ? Request an Nitza Bustamante MD 10/25/2018 9:11 PM Braden Browne is here for follow up regarding: thyroid nodules S/PthyroidectomyIs patient interested in [employer]? he is interested in it.Patient is taking levothyroxin ? Yes Patient is not taking iron, calcium and/ormultivitamin within 4 hours of the levothyroxin and patient is not missing anydoses of levothyroxinHistory of CT scan with intravenous contrast within the last 4 months? NoCC: hypothyroidism.Current Outpatient Prescriptions:temazepam (RESTORIL) 30 mg cap Take 30 mg by mouth at bedtime as needed. Disp:Rfl: 0levothyroxine (SYNTHROID) 100 mcg tablet Take 125 mcg by mouth once daily.Disp: Rfl:mometasone (NASONEX) 50 mcg/Actuation NASAL nasal spray Use in the nose oncedaily. 2 SPRAYS EACH NOSTRIL DAILY-RINSE MOUTH AFTER USE. Disp: 1 Bottle Rfl: 0metoprolol succinate 100 mg CSpX Take 100 mg by mouth once daily. Disp: Rfl:No current facility-administered medications for this visit.HPI:Mr. Browne is here with his and son.Dr. Cade recommended that he see me regarding his symptoms and a right neckmass that the patient and family are suspecting could be a paraganglioma.Mr. Browne saw Dr. Jones in July 2018 for thyroid nodules. This had beennoted during a rheumatology visit. His TSH was mildly suppressed with normalT4 and T3. Thyroid uptake was 33.7% at 24 hours and the scan showed aphotopenic area in caudal left lobe. Thyroid ultrasound showed bilobarenlargement with bilateral nodules. He saw Dr. Rodriguez who recommended FNA. Thepatient has been having symptoms that suggested the possibility of having aparaganglioma.His BP has been has high as 170 systolic. He gets shaky and anxious when thishappens.There was report of elevated norepinephrine level.Dr. Jones repeated plasma catecholamines and metanephrines and those werenormal.Urine metanephrines were normal.Before May, he felt fine and the adrenergic symptoms were not happening.Dr. Root told him he could visualize the neck mass on ultrasound 1.5 weeksago.ROS:Energy: not so goodMoods :anxiousness when the spells happenDysphagia: not nowNew neck lump: NoCommunication: Hearing: normal; Voice: normalDyspnea: sometimesCough: NoPalpitations: Yes at times.Tremor: Yes intermittentlyPast, social and family histories were reviewed and updated in the database YesPhysical exam:BP 131/78 Pulse 79 Ht 170.3 cm (5' 7.05") Wt 78.6 kg (173 lb 4.8 oz) BMI 27.10 kg/m?Body mass index is 27.1 kg/m?.GENERAL: Well nourished, in distress, anxious, well hydrated and oriented x 3Communication: Hearing: normal; Voice: shaky speechEYES: no thyroid eye signsNECK: no tenderness, no adenopathies and healed neck incisionTHYROID: S/P thyroidectomy and no significant remnantEXTREMITIES: No clubbing, no cyanosis and normal nailsNEURO: normal strength and hand tremorPrevious laboratory results:TSH (uU/mL)Date Value08/05/2018 0.196 Imaging (new information since last visit):I reviewed the CT of the neck from September 27, 2018:There is a hypoattenuating dixon shaped mass in the right level at the baseof the neck, anterior to the common carotid artery and medial to the jugularvein. No calcifications. This looks like thyroid tissue.Impression and recommendations:Goiter.S/p subtotal thyroidectomy. Possible remnant in right central compartment.Spells of tremor and anxiousness. Reportedly high blood pressure duringspells.Reportedly elevated epinephrine level.Repeat catecholamines and metanephrines have been normal.Patient, family and providers concerned with the possibility of paraganglioma.Of note the patient had the thyroidectomy without intraoperative events.I told the patient I do not have evidence of elevated catecholamines.We will try to obtain outside records from Dr. Root's office.I will review and if truly elevated, I will discuss with Dr. Mosley.See procedure note. Ultrasound showed a right thyroid lobe remnant caudallywithout suspicious features. The appearance is not suggestive ofparaganglioma.Will see him in follow up depending on the results.Victor M Middleton MD 10/25/2018 9:11 PM SignedThyroid/parathyroid/ neck ultrasound (October 21, 2018):Referring Physician: Dr. Grzegorz Gutierrez Care Physcian: Katey Max for the study: Neck massComparison: CT of the neck from Sep 27, 2018Equipment: AlARtunes Radio Prosound Alpha 6Transducer: Linear/Trapezoidal multifrequencyRegions examined: Thyroid bed and Lymphatic areasSagittal and transverse views were obtained. Color and power Doppler wereapplied when indicated.Right lobe remnant: L 36 x W 24 x AP 7.5 mm; Homogeneous. No internalvascularityIsthmus : surgically absentLeft lobe remnant: noneOther findings:no adenopathies.Impression:S/ P subtotal thyroidectomy.Right lobe remnant.Recommendation:Nec k exam in a few months.Performed and interpreted by Hardik Middleton Provider: GRZEGORZ CADE [[id number]]Allergies As of Date: 10/21/2018(No Known Allergies)Date Reviewed: 10/21/2018Reviewed by: Therese Garza - Fully AssessedReason for Visit: new nodule [Other]Primary Visit Diagnosis:Mass of right side of neck [R22.1]Order(s):US NECK (POC) ENDO USE ONLY [4271552] Order #: [id number]. #:[id number]: 1Prescriptions as of 10/21/2018 Sig: TEMAZEPAM 30 MG CAPSULE Take 30 mg by mouth at bedtim* LEVOTHYROXINE 100 MCG TABLET Take 125 mcg by mouth once da* MOMETASONE 50 MCG/ACTUATION N* Use in the nose once daily. 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 Being able to provide excellent health care has allowed us to be # 3 in the country according to [employer] World [employer]. Did you know that you need to call 48 hours in advance of your scheduled visit, if you are unable to make your appointment? The Endocrinology and Metabolism [place] thanks you for your commitment, because patients not showing to their appointment results in a lost opportunity for patients to receive world class health care at the [facility]. To Cancel an appointment, please choose one of the following: - Call the Appointment Call Center at [phone] - From [facility], Go to Appointments ? Cancel Appts If cancelling, consider your need to reschedule to prevent further delays in your care. To Schedule an appointment, please choose one of the following: - Call the Appointment Call Center at [phone] - From [employer], Go to Appointments ? Request an ApptMedications Discontinued During This Encounter leflunomide (ARAVA) 20 [...] Disc: Reason for discontinue is not on file.Disposition: Return if symptoms worsen or fail to improve.Follow-up and Disposition History RecordedEncounter Number: [id number] Status:Closed by CORINNE BUSTAMANTE MD on 10/25/18 Normal [facility] PROCEDUREon 10-21-2018 Protein mass conc HNO ID: [id number] thor: Corinne Gonzales: (none)Author Type: PhysicianType: ProceduresFiled: 10/25/2018 9:11 PMNote Text:Thyroid/parathyroid/n yuliana ultrasound (October 21, 2018):Referring Physician: Dr. Grzegorz Gutierrez Care Physcian: Katey Max for the study: Neck massComparison: CT of the neck from Sep 27, 2018Equipment: AlARtunes Radio Prosound Alpha 6Transducer: Linear/Trapezoidal multifrequencyRegions examined: Thyroid bed and Lymphatic areasSagittal and transverse views were obtained. Color and power Doppler wereapplied when indicated.Right lobe remnant: L 36 x W 24 x AP 7.5 mm; Homogeneous. Nointernal vascularityIsthmus: surgically absentLeft lobe remnant: noneOther findings:no adenopathies.Impression:S/ P subtotal thyroidectomy.Right lobe remnant.Recommendation:Nec k exam in a few months.Performed and interpreted by Corinne Bustamante MD Normal [facility] PROGRESSon 10-21-2018 Protein mass conc HNO ID: [id number] thor: Corinne Gonzales: (none)Author Type: PhysicianType: Progress NotesFiled: 10/25/2018 9:11 PMNote Text:Nickie Browne is here for follow up regarding: thyroid nodules S/PthyroidectomyIs patient interested in MyChart? he is interested in it.Patient is taking levothyroxin ? Yes Patient is not taking iron, calciumand/or multivitamin within 4 hours of the levothyroxin and patient is notmissing any doses of levothyroxinHistory of CT scan with intravenous contrast within the last 4 months? NoCC: hypothyroidism.Current Outpatient Prescriptions:temazepam (RESTORIL) 30 mg cap Take 30 mg by mouth at bedtime as needed.Disp: Rfl: 0levothyroxine (SYNTHROID) 100 mcg tablet Take 125 mcg by mouth once daily. Disp: Rfl:mometasone (NASONEX) 50 mcg/Actuation NASAL nasal spray Use in the noseonce daily. 2 SPRAYS EACH NOSTRIL DAILY-RINSE MOUTH AFTER USE. Disp: 1Bottle Rfl: 0metoprolol succinate 100 mg CSpX Take 100 mg by mouth once daily. Disp:Rfl:No current facility-administered medications for this visit.HPI:Mr. Browne is here with his and son.Dr. Cade recommended that he see me regarding his symptoms and a rightneck mass that the patient and family are suspecting could be aparaganglioma.Mr. Browne saw Dr. Jones in July 2018 for thyroid nodules. This hadbeen noted during a rheumatology visit. His TSH was mildly suppressedwith normal T4 and T3. Thyroid uptake was 33.7% at 24 hours and the scanshowed a photopenic area in caudal left lobe. Thyroid ultrasound showedbilobar enlargement with bilateral nodules. He saw Dr. Rodriguez whorecommended FNA. The patient has been having symptoms that suggested thepossibility of having a paraganglioma.His BP has been has high as 170 systolic. He gets shaky and anxious whenthis happens.There was report of elevated norepinephrine level.Dr. Jones repeated plasma catecholamines and metanephrines and those werenormal.Urine metanephrines were normal.Before May, he felt fine and the adrenergic symptoms were not happening.Dr. Root told him he could visualize the neck mass on ultrasound 1.5weeks ago.ROS:Energy: not so goodMoods :anxiousness when the spells happenDysphagia: not nowNew neck lump: NoCommunication: Hearing: normal; Voice: normalDyspnea: sometimesCough: NoPalpitations: Yes at times.Tremor: Yes intermittentlyPast, social and family histories were reviewed and updated in thedatabase YesPhysical exam:BP 131/78 Pulse 79 Ht 170.3 cm (5' 7.05") Wt 78.6 kg (173 lb 4.8oz) BMI 27.10 kg/m?Body mass index is 27.1 kg/m?.GENERAL: Well nourished, in distress, anxious, well hydrated and orientedx 3Communication: Hearing: normal; Voice: shaky speechEYES: no thyroid eye signsNECK: no tenderness, no adenopathies and healed neck incisionTHYROID: S/P thyroidectomy and no significant remnantEXTREMITIES: No clubbing, no cyanosis and normal nailsNEURO: normal strength and hand tremorPrevious laboratory results:TSH (uU/mL)Date Value08/05/2018 0.196 Imaging (new information since last visit):I reviewed the CT of the neck from September 27, 2018:There is a hypoattenuating dixon shaped mass in the right level at thebase of the neck, anterior to the common carotid artery and medial to thejugular vein. No calcifications. This looks like thyroid tissue.Impression and recommendations:Goiter.S/p subtotal thyroidectomy. Possible remnant in right centralcompartment.Spells of tremor and anxiousness. Reportedly high blood pressure duringspells.Reportedly elevated epinephrine level.Repeat catecholamines and metanephrines have been normal.Patient, family and providers concerned with the possibility ofparaganglioma.Of note the patient had the thyroidectomy without intraoperative events.I told the patient I do not have evidence of elevated catecholamines.We will try to obtain outside records from Dr. Root's office.I will review and if truly elevated, I will discuss with Dr. Mosley.See procedure note. Ultrasound showed a right thyroid lobe remnantcaudally without suspicious features. The appearance is not suggestive ofparaganglioma.Will see him in follow up depending on the results.Corinne Bustamante MD [facility] CNOVon 10-18-2018 CNOV Office Visit (OTOLMN) NICKIE BROWNE ([id number]) 1965 MDate Time Provider Mvoqzxtdav95/26/18 9:15 AM GRZEGORZ CADE During your visit today, we recorded the following information about you: Respiration Weight Height 20/minute 77.1 kg 1.702 Caroline Curiel 10/18/2018 9:12 AM SignedTobacco Use: NeverWas smoking cessation packet given? N/A - Patient is a non-smoker or quit >1year ago.Was a referral initiated?N/A Patient is a non-smokerJosecordell Cade MD 10/19/2018 8:18 AM SignedOTOLARYNGOLOGY - HEAD AND NECK SURGERYNew Patient ConsultationThis consult was requested by Roseline Root MD for an opinion regarding carotidarteries. My final recommendations will be communicated to the requestingprovider by way of shared EMR or letter via the [place] mail.HPI: Nickie Browne is a 53 year old male with PMHx significant for allergicrhinitis, HTN, OA and past surgical history of thyroidectomy in August. He is here for evaluation of HTN, shaking AND tachycardia that began inAugust. These symptoms were attributed to a mediastinal goiter that was excisedbut his symptoms remained. The pathology showed no malignancy.His main symptoms are high blood pressure, shaking, tachycardia, sweating,restlessness and like he is in high speed mood all the time". He reports thathe has "attacks" once a week but he is always activated" He reports that he hadepinephrine testing during an episode of his symptoms and reports that hisepinephrine was 3 times higher than usual. Those results are not available tous but testing form 08/09/2018 which is available, shows no elevation.He had a CTA on which showed "Non vascular structure noted atproximal neck measuring approximately: 3.1 x 1.9 x ?0.9 cm. Highly vascularizedtissue noted at the base of the jaw bilaterally, away ?from area of carotidarteries." He had a CT neck on [id number] which showed a right supraclavicularmass.His mother had "thyroid issues". He has not had radiation therapy. He is anever smoker.As stated on new patient questionnaire and update in the Past medical history,past surgical history, medications, allergies, family history, social history,and review of systems below. For further details please see patientquestionnaire scanned into [facility].PAST MEDICAL HISTORYDiagnosis Date- Allergic rhinitis, cause unspecified- Carotid body tumor (HCC)- HTN (hypertension)- Multiple thyroid nodules- OsteoarthritisPAST SURGICAL HISTORYProcedure Laterality Date- CARPAL TUNNEL- PAST SURGICAL HISTORY OF 2018 thyroidectomy- REPAIR ING HERNIA,5+Y/O,REDUCIBL Left- THYROIDECTOMY 08/28/2018Current Outpatient Prescriptions:temazepam (RESTORIL) 30 mg cap Take 30 mg by mouth at bedtime as needed. Disp:Rfl: 0levothyroxine (SYNTHROID) 100 mcg tablet Take 1 tablet by mouth once daily.Disp: Rfl:metoprolol succinate 100 mg CSpX Take 100 mg by mouth once daily. Disp: Rfl:omeprazole (PRILOSEC) 20 mg capsule Take 20 mg by mouth once daily. Disp: Rfl:mometasone (NASONEX) 50 mcg/Actuation NASAL nasal spray Use in the nose oncedaily. 2 SPRAYS EACH NOSTRIL DAILY-RINSE MOUTH AFTER USE. Disp: 1 Bottle Rfl: 0leflunomide (ARAVA) 20 mg tablet Take 20 mg by mouth once daily. Disp: Rfl:meloxicam (MOBIC) 15 mg tablet Take 15 mg by mouth once daily. Disp: Rfl:hydroxychloroquine sulfate (PLAQUENIL ORAL) Take 400 mg by mouth once daily.Disp: Rfl:No current facility-administered medications for this visit.ALLERGIESNo Known AllergiesFAMILY HISTORYProblem Relation Age of Onset- Thyroid Mother hypothyroid- Hypertension Father- Lipids Father- Heart FatherSocial History Marital status: Spouse name: Years of education: Number of children:Social History Main Topics Smoking status: Never Smoker Smokeless tobacco: Never Used Alcohol use: Yes Comment: occasional Drug use: NoReview of Systems:Eyes - Denies failing vision, double visionEars - Denies drainage, hearing loss, dizziness, ringingNose - Denies nosebleeds, drainage, sinus symptoms, nasal obstructionThroat - denies frequent sore throat, lump in neck, hoarsenessLungs - Denies frequent cough, shortness of breathHeart - See HPIGastrointestinal - Denies stomach pain, nausea, vomiting , diarrhea, bleedingGenitourinary - Denies Burning, bleeding, pain or problems passing urineNeurological - Denies convulsions, seizures, memory loss, headachesEndocrine - Denies heat/cold intolerance, weight gain or loss, hair lossRemainder of ROS negative except for otherwise stated in the HPI above.REVIEW OF RADIOLOGICAL FILMS AND RECORDS:10/04/2018On our read there is a 3 cm mass in the right neck which most likely representretained thyroid tissue.10/06/2018RIGHT SIDE?Non vascular structure noted at proximal neck measuring approximately: 3.1 x1.9 x?0.9 cm. Highly vascularized tissue noted at the base of the jaw bilaterally,away?from area of carotid arteries.?Common carotid artery: Plaque visualized without evidence of hemodynamicallysignificant stenosis.?Internal carotid artery: 20-39% stenosis.?Vertebral artery: Patent and antegrade flow noted.?LEFT SIDE?Internal carotid artery: 0-19% stenosis.?Vertebral artery: Patent and antegrade flow noted.LABS:See 08/09/2018 testing in the chartMETANEPHRINES 24H UROrder: [id number]: Final result ??Visible to patient: No (Not Released) Next appt: NoneDx: Elevated norepinephrine level Ref Range AND Units 2mo agoMetanephrine 52 - 341 ug/24 hr 153Normetanephrine 88 - 444 ug/24 hr 439Tot Metanephrine 140 - 785 ug/24 hr 592Comment: This test was developed and its performance characteristics determinedby[facility]'s [facility] ([facility]).It has not been cleared or approved by the FDA. [facility] is regulated underCLIA as qualified to perform high-complexity testing.This test is used for clinical purposes. It should not be regarded asinvestigational or for research. Ref Range AND Units 2mo ago(08/09/18) 2mo ago(08/09/18) 2mo ago(08/09/18) Period 24 24 24 Urine Volume 2,252 Creatinine, Ur Random (UCRR) mg/dL 61 Creatinine mg/day, Urine 800 - 2,100 mg/d 1,374Comment: (NOTE)Performed by [email or web address],[address] [place] [id number] [address] Vik fishman MD, Lab. Director Epinephrine, Ur 24hr 1 - 7 ug/d 7Comment: (NOTE)REFERENCE INTERVAL: Epinephrine, Urine - ug/dAccess complete set of age- and/or gender-specific referenceintervals for this test in the [employer] [facility] Test Directory([employer]). Norepinephrine, Ur 24hr 16 - 71 ug/d 70Comment: (NOTE)REFERENCE INTERVAL: Norepinephrine, Urine - ug/dAccess complete set of age- and/or gender-specific referenceintervals for this test in the [employer] Test Directory([employer]). Dopamine, Ur 24hr 77 - 324 ug/d 153Comment: (NOTE)REFERENCE INTERVAL: Dopamine, Urine - ug/dAccess complete set of age- and/or gender-specific referenceintervals for this test in the [employer] Test Directory([employer]). Epinephrine, Ur ratio to TAKER DOWN 0 - 20 ug/g TAKER DOWN 5 Norepinephrine, Ur ratio to TAKER DOWN 0 - 45 ug/g TAKER DOWN 51 Dopamine, Ur ratio to TAKER DOWN 0 - 250 ug/g TAKER DOWN 111 Catecholamines Interpretation SEE NOTEPHYSICAL EXAM:Vitals - Resp 20 Ht 170.2 cm (5' 7") Wt 77.1 kg (170 lb) BMI 26.63kg/m?Constitutional - General Appearance: well developed, well nourished, without obviousdeformities Communication: speaks with a normal voice without hoarsenessHead AND Face - Overall: no obvious scars, lesions or masses Parotid and submandibular glands: no masses or tenderness Facial strength: normal and equal bilaterallyEar, Nose, Mouth AND Throat - Ears: both left and right external auditory canals and TM's are normal, noexternal deformities Nasal exam: mucosa is pink, septum is midline, visible turbinates are normalon anterior rhinoscopy Mastication: teeth appear midline Oral Cavity and oropharynx: mucosa, hard and soft palates, tongue, tonsilarea, posterior pharyngeal wall, lips and gums are without lesions Neck: Well healed midline neck scar. Neck appears symmetric, and onpalpation is without masses or lymphadenopathy Thyroid: Surgically absent.Cranial Nerves: II: Pupillary reflexes normal III, IV, : EOM normal V: 1,2,3: normal sensation VII: Normal strength in all divisions IX, X: Normal voice, palatal elevation and sensation XI: Shoulder strength normal XII: Tongue mobility normalLarynx: using the mirror for indirect laryngoscopy, the epiglottic, falsecords, true cords, and pyriform sinuses are without lesions and the true vocalcords move normallyProcedure:Flexible laryngoscopy was performed because of the following indication: Poorvisualization with mirror and/or the need for high resolution imaging of thelarynx and dynamic airway.After spraying the nose with xylocaine/neosynephrine, the flexible scope wasplaced in a transnasal fashion. The nasopharynx, oropharynx, hypopharynxincluding the pyriform sinuses were normal. The base of tongue showed no grosslesions. The larynx itself showed no lesions. The vocal cords moved wellbilaterally. Procedure performed by Grzegorz Cade MD.ASSESSMENT: Mr. Browne is a 53 year old male with episodes of HTN, anxiety,shaking, tachycardia, sweating AND restlessness. He is s/p thyroidectomy whichwas initially thought to be the cause of his symptoms but they have persisted.We are asked to evaluate a right supraclavicular mass. Per the patient therewas concern that this represents a paraganglioma or a carotid body tissue. Onour read of the CT neck from 10/04/2018 the is a 3 cm supraclavicular mass inthe right neck which most likely represent retained thyroid tissue.PLAN:- Flexible laryngoscopy today- Follow up with endocrinology -- further evaluation and ultrasound biopsy ofmass, further hormonal work-up- Will obtain outside recordsWilliam Jarrell MDFor the service of Grzegorz Cade MDNovember 2017I participated in the history and physical exam of Nickie Browne. I discussedthe management of Nickie Browne with the resident. I reviewed the resident'snote and agree with the documented findings and plan of care.EVONNE Santillaneferring Provider: ROSELINE ROOT [[id number]]Allergies As of Date: 10/18/2018(No Known Allergies)Date Reviewed: 10/18/2018Reviewed by: Trudy Curiel - Fully AssessedReason for Visit: New Patient [172] Cmt: paraganglioma right neck; thyroidectomyPrimary Visit Diagnosis:Supraclavicular mass [R22.2]Order(s):CONSULT TO ENDOCRINOLOGY [9007] Order #: [id number]: 1Prescriptions as of 10/18/2018 Sig: TEMAZEPAM 30 MG [...] ORAL Take 400 mg by mouth once sara*Problem List As Of Date 10/18/2018 Noted Resolved UNILAT INGUINAL HERNIA [K40.90] INVALID FOR* Subclinical hyperthyroidism [E05.90] INVALID FOR* Enlarged thyroid gland [E04.9] INVALID FOR* Multiple thyroid nodules [E04.2] INVALID FOR*Visit Notes:>> Trudy Curiel Mon Oct 18, 2018 9:10 AM Status: SignedTobacco Use: NeverWas smoking cessation packet given? N/A - Patient is a non-smoker or quit>1 year ago.Was a referral initiated?N/A Patient is a non-smokerEncounter Number: [id number] Status:Closed by GRZEGORZ CADE MD on 10/19/18 Normal [facility] PROGRESSon 10-18-2018 Protein mass conc HNO ID: [id number] thor: Grzegorz Canoervice: (none)Author Type: PhysicianType: Progress NotesFiled: 10/19/2018 8:18 AMNote Text:OTOLARYNGOLOGY - HEAD AND NECK SURGERYNew Patient ConsultationThis consult was requested by Roseline Root MD for an opinion regardingcarotid arteries. My final recommendations will be communicated to therequesting provider by way of shared EMR or letter via the US mail.HPI: Nickie Browne is a 53 year old male with PMHx significant forallergic rhinitis, HTN, OA and past surgical history of thyroidectomy inOctober 2017. He is here for evaluation of HTN, shaking AND tachycardiathat began in June. These symptoms were attributed to a mediastinalgoiter that was excised but his symptoms remained. The pathology showed nomalignancy.His main symptoms are high blood pressure, shaking, tachycardia, sweating,restlessness and like he is in high speed mood all the time". He reportsthat he has "attacks" once a week but he is always activated" He reportsthat he had epinephrine testing during an episode of his symptoms andreports that his epinephrine was 3 times higher than usual. Those resultsare not available to us but testing form 08/09/2018 which is available,shows no elevation.He had a CTA on [id number] which showed "Non vascular structure noted atproximal neck measuring approximately: 3.1 x 1.9 x ?0.9 cm. Highlyvascularized tissue noted at the base of the jaw bilaterally, away ?fromarea of carotid arteries." He had a CT neck on 11191130 which showed aright supraclavicular mass.His mother had "thyroid issues". He has not had radiation therapy. He is anever smoker.As stated on new patient questionnaire and update in the Past medicalhistory, past surgical history, medications, allergies, family history,social history, and review of systems below. For further details pleasesee patient questionnaire scanned into [employer].PAST MEDICAL HISTORYDiagnosis Date- Allergic rhinitis, cause unspecified- Carotid body tumor (HCC)- HTN (hypertension)- Multiple thyroid nodules- OsteoarthritisPAST SURGICAL HISTORYProcedure Laterality Date- CARPAL TUNNEL- PAST SURGICAL HISTORY OF 2018 thyroidectomy- REPAIR ING HERNIA,5+Y/O,REDUCIBL Left- THYROIDECTOMY 08/28/2018Current Outpatient Prescriptions:temazepam (RESTORIL) 30 mg cap Take 30 mg by mouth at bedtime as needed.Disp: Rfl: 0levothyroxine (SYNTHROID) 100 mcg tablet Take 1 tablet by mouth oncedaily. Disp: Rfl:metoprolol succinate 100 mg CSpX Take 100 mg by mouth once daily. Disp:Rfl:omeprazole (PRILOSEC) 20 mg capsule Take 20 mg by mouth once daily. Disp:Rfl:mometasone (NASONEX) 50 mcg/Actuation NASAL nasal spray Use in the noseonce daily. 2 SPRAYS EACH NOSTRIL DAILY-RINSE MOUTH AFTER USE. Disp: 1Bottle Rfl: 0leflunomide (ARAVA) 20 mg tablet Take 20 mg by mouth once daily. Disp:Rfl:meloxicam (MOBIC) 15 mg tablet Take 15 mg by mouth once daily. Disp: Rfl:hydroxychloroquine sulfate (PLAQUENIL ORAL) Take 400 mg by mouth oncedaily. Disp: Rfl:No current facility-administered medications for this visit.ALLERGIESNo Known AllergiesFAMILY HISTORYProblem Relation Age of Onset- Thyroid Mother hypothyroid- Hypertension Father- Lipids Father- Heart FatherSocial History Marital status: Spouse name: Years of education: Number of children:Social History Main Topics Smoking status: Never Smoker Smokeless tobacco: Never Used Alcohol use: Yes Comment: occasional Drug use: NoReview of Systems:Eyes - Denies failing vision, double visionEars - Denies drainage, hearing loss, dizziness, ringingNose - Denies nosebleeds, drainage, sinus symptoms, nasal obstructionThroat - denies frequent sore throat, lump in neck, hoarsenessLungs - Denies frequent cough, shortness of breathHeart - See HPIGastrointestinal - Denies stomach pain, nausea, vomiting , diarrhea,bleedingGenitouri nary - Denies Burning, bleeding, pain or problems passing urineNeurological - Denies convulsions, seizures, memory loss, headachesEndocrine - Denies heat/cold intolerance, weight gain or loss, hair lossRemainder of ROS negative except for otherwise stated in the HPI above.REVIEW OF RADIOLOGICAL FILMS AND RECORDS:10/04/2018On our read there is a 3 cm mass in the right neck which most likelyrepresent retained thyroid tissue.10/06/2018RIGHT SIDE?Non vascular structure noted at proximal neck measuring approximately: 3.1x 1.9 x?0.9 cm. Highly vascularized tissue noted at the base of the jawbilaterally, away?from area of carotid arteries.?Common carotid artery: Plaque visualized without evidence ofhemodynamicallysignifica nt stenosis.?Internal carotid artery: 20-39% stenosis.?Vertebral artery: Patent and antegrade flow noted.?LEFT SIDE?Internal carotid artery: 0-19% stenosis.?Vertebral artery: Patent and antegrade flow noted.LABS:See 08/09/2018 testing in the chartMETANEPHRINES 24H UROrder: [id number]: Final result ??Visible to patient: No (Not Released) Next appt:None Dx: Elevated norepinephrine level Ref Range AND Units 2mo agoMetanephrine 52 - 341 ug/24 hr 153Normetanephrine 88 - 444 ug/24 hr 439Tot Metanephrine 140 - 785 ug/24 hr 592Comment: This test was developed and its performance characteristicsdetermined byMagruder [facility]'s [facility] ([facility]).It has not been cleared or approved by the FDA. [facility] is regulated underCLIA as qualified to perform high-complexity testing.This test is used for clinical purposes. It should not be regarded asinvestigational or for research. Ref Range AND Units 2mo ago(08/09/18) 2mo ago(08/09/18) 2mo ago(08/09/18) Period 24 24 24 Urine Volume 2,252 Creatinine, Ur Random (UCRR) mg/dL 61 Creatinine mg/day, Urine 800 - 2,100 mg/d 1,374Comment: (NOTE)Performed by [email or web address],[address] [place] [id number] inp[employer].Vik kwan MD, Lab. Director Epinephrine, Ur 24hr 1 - 7 ug/d 7Comment: (NOTE)REFERENCE INTERVAL: Epinephrine, Urine - ug/dAccess complete set of age- and/or gender-specific referenceintervals for this test in the [employer] [facility] Test Directory([employer]). Norepinephrine, Ur 24hr 16 - 71 ug/d 70Comment: (NOTE)REFERENCE INTERVAL: Norepinephrine, Urine - ug/dAccess complete set of age- and/or gender-specific referenceintervals for this test in the [employer] [facility] Test Directory([employer]). Dopamine, Ur 24hr 77 - 324 ug/d 153Comment: (NOTE)REFERENCE INTERVAL: Dopamine, Urine - ug/dAccess complete set of age- and/or gender-specific referenceintervals for this test in the [employer] Test Directory([employer]). Epinephrine, Ur ratio to TAKER DOWN 0 - 20 ug/g TAKER DOWN 5 Norepinephrine, Ur ratio to TAKER DOWN 0 - 45 ug/g TAKER DOWN 51 Dopamine, Ur ratio to TAKER DOWN 0 - 250 ug/g TAKER DOWN 111 Catecholamines Interpretation SEE NOTEPHYSICAL EXAM:Vitals - Resp 20 Ht 170.2 cm (5' 7") Wt 77.1 kg (170 lb) BMI26.63 kg/m?Constitutional - General Appearance: well developed, well nourished, without obviousdeformities Communication: speaks with a normal voice without hoarsenessHead AND Face - Overall: no obvious scars, lesions or masses Parotid and submandibular glands: no masses or tenderness Facial strength: normal and equal bilaterallyEar, Nose, Mouth AND Throat - Ears: both left and right external auditory canals and TM's are normal,no external deformities Nasal exam: mucosa is pink, septum is midline, visible turbinates arenormal on anterior rhinoscopy Mastication: teeth appear midline Oral Cavity and oropharynx: mucosa, hard and soft palates, tongue,tonsil area, posterior pharyngeal wall, lips and gums are without lesions Neck: Well healed midline neck scar. Neck appears symmetric, and onpalpation is without masses or lymphadenopathy Thyroid: Surgically absent.Cranial Nerves: II: Pupillary reflexes normal III, IV, : EOM normal V: 1,2,3: normal sensation VII: Normal strength in all divisions IX, X: Normal voice, palatal elevation and sensation XI: Shoulder strength normal XII: Tongue mobility normalLarynx: using the mirror for indirect laryngoscopy, the epiglottic, falsecords, true cords, and pyriform sinuses are without lesions and the truevocal cords move normallyProcedure:Flexible laryngoscopy was performed because of the following indication:Poor visualization with mirror and/or the need for high resolution imagingof the larynx and dynamic airway.After spraying the nose with xylocaine/neosynephrine, the flexible scopewas placed in a transnasal fashion. The nasopharynx, oropharynx,hypopharynx including the pyriform sinuses were normal. The base of tongueshowed no gross lesions. The larynx itself showed no lesions. The vocalcords moved well bilaterally. Procedure performed by Grzegorz Cade MD.ASSESSMENT: Mr. Browne is a 53 year old male with episodes of HTN,anxiety, shaking, tachycardia, sweating AND restlessness. He is s/pthyroidectomy which was initially thought to be the cause of his symptomsbut they have persisted. We are asked to evaluate a right supraclavicularmass. Per the patient there was concern that this represents aparaganglioma or a carotid body tissue. On our read of the CT neck from10/04/2018 the is a 3 cm supraclavicular mass in the right neck which mostlikely represent retained thyroid tissue.PLAN:- Flexible laryngoscopy today- Follow up with endocrinology -- further evaluation and ultrasoundbiopsy of mass, further hormonal work-up- Will obtain outside recordsWilliam Jarrell MDFor the service of Grzegorz Cade MDNov2017I participated in the history and physical exam of Nickie Browne. Idiscussed the management of Nickie Browne with the resident. I reviewedthe resident's note and agree with the documented findings and plan ofcare.Grzegorz Cade MD [facility] CNCOon 10-06-2018 CNCO Letter TextDavid King turner, [facility] [address] [place] [address]Ynjgdw: [phone]: [phone]: [phone] 20, 2018Evelia Bains MD[address] [place], [place] [address]Aebsr: [phone]: [phone]: Linn Browne NO.: [id number]: 1965DATE OF SERVICE: 10/06/2018Dear Dr. Bains:Your patient, Mr. Browne, was seen by me in the office for a consult.The details of his treatment plan are included in my office note, a copy ofwhich is included for your interest and records.I appreciate the opportunity to participate in Mr. Browne's evaluation andtreatment. If I can provide further information, please do not hesitate tocontact me.Sincerely yours,Roseline Root MD(Signed electronically to expedite mailing)DH/kkEnclosure [facility] CNOVon 10-06-2018 CNOV Office Visit (VASSMN) NICKIE BROWNE ([id number]) 1965 MDate Time Provider Lyxwsfrmxs24/14/18 1:00 PM ROSELINE ROOT During your visit today, we recorded the following information about you: Temperature Pulse Respiration Blood pressure 98.2 degrees 96/minute 18/minute 143/75 Weight Height 77.6 kg 1.702 Elizabeth Root MD, MD 10/06/2018 4:33 PM SignedVASCULAR SURGERY INITIAL CONSULTSERVICE DATE: 10/06/2018SERVICE TIME: 1:46 PMPRIST. [facility] PH[facility]IAN: EVONNE MaxEFERRING PROVIDER:Evelia Bains MD[address] [facility] [address]Ndfuvtt requested for an opinion regarding the evaluation and treatment of theabove. My final impression and recommendations will be communicated back to therequesting physician by way of the shared medical record or letter via US mail.CHIEF COMPLAINT/HISTORY OF PRESENT ILLNESS:Chief Complaint: Req consult for CBTHistory of Present Illness:Nickie Browne is a 53 year old male presenting with CBT. Approx 4 mos ago hestarted having hypertension sx AND sought w/u with his PCP which noted enlargedthyroid AND he underwent total thyroidectomy. He cont to have HTN problems ANDfurther w/u noted the CBT. PAST MEDICAL/SURGICAL/FAMILY/SO CIAL HISTORYPAST MEDICAL HISTORYDiagnosis Date- Allergic rhinitis, cause unspecified- Carotid body tumor (HCC)- HTN (hypertension)- Multiple thyroid nodules- OsteoarthritisPAST SURGICAL HISTORYProcedure Laterality Date- CARPAL TUNNEL- PAST SURGICAL HISTORY OF 2018 thyroidectomy- REPAIR ING HERNIA,5+Y/O,REDUCIBL LeftFAMILY HISTORYProblem Relation Age of Onset- Thyroid Mother hypothyroid- Hypertension Father- Lipids Father- Heart FatherSOCIAL HISTORYSocial History Marital status: Spouse name: Years of education: Number of children:Social History Main Topics Smoking status: Never Smoker Smokeless tobacco: Never Used Alcohol use: Yes Comment: occasional Drug use: NoMEDICATIONS/ALLERGIESCur rent Outpatient Prescriptions:temazepam (RESTORIL) 30 mg cap Take 30 mg by mouth at bedtime as needed. Disp:Rfl: 0leflunomide (ARAVA) 20 mg tablet Take 20 mg by mouth once daily. Disp: Rfl:meloxicam (MOBIC) 15 mg tablet Take 15 mg by mouth once daily. Disp: Rfl:hydroxychloroquine sulfate (PLAQUENIL ORAL) Take 400 mg by mouth once daily.Disp: Rfl:metoprolol succinate 100 mg CSpX Take 100 mg by mouth once daily. Disp: Rfl:omeprazole (PRILOSEC) 20 mg capsule Take 20 mg by mouth once daily. Disp: Rfl:mometasone (NASONEX) 50 mcg/Actuation NASAL nasal spray Use in the nose oncedaily. 2 SPRAYS EACH NOSTRIL DAILY-RINSE MOUTH AFTER USE. Disp: 1 Bottle Rfl: 0levothyroxine (SYNTHROID) 100 mcg tablet Take 1 tablet by mouth once daily.Disp: Rfl:No current facility-administered medications for this visit.ALLERGIESNo Known AllergiesREVIEW OF SYSTEMSConstitutional: No weight loss, malaise or fevers. Pt reports the jitters ANDinsomniaHEENT: Negative for frequent or significant headachesRespiratory: Negative for cough, wheezing, or shortness of breathCardiovascular: Negative for chest pain, leg swelling or palpitationsGatrointestina l: Negative for abdominal discomfort, blood in stools or blackstools or change in bowel habits. Some constipation AND loose stoolsGenitourinary: No history of dysuria, frequency, or incontinenceMusculoskeleta l: Negative for joint pain or swelling, back pain or muscle pain.+ OA on several medsEndocrine: Negative for cold or heat intolerance, polyuria, polydipsia andgoiterHematology/Lympha tic: Negative for prolonged bleeding, bruising easily orswollen nodesNeurologic: No history or headaches, syncope, paralysis, seizures or tremorsIntegumentary: Negative for lesions, rash, and itching.Tests:MRI, CT, echo: see Aline Monique RNPHYSICAL EXAMVITALS: BP 143/75 Pulse 96 Temp (Src) 98.2 (Oral) Resp 18 Ht 5' 7"(1.70m) Wt 171 lb (77.6kg) SpO2 98% BMI 26.78 kg/(m2).General: Alert and orientedIntegumentary: Normal color, no rash, no lesions.HEENT: EOM, pupils equal, round and reactive.Cardiovascular: Normal S1 AND S2, no rubs, murmurs or gallops. No JVD., Pulseregular.Lungs: Normal breath sounds, no wheezes or crackles.Abdomen: Soft, non-tender, no rigidity.Extremities: No deformity, no edema or tenderness, no joint swelling orclubbing.Neurological: Normal cognition and motor skills.Vascular: Pulses:Carotid Pulse Right: Normal Left: NormalBrachial Pulse Right: Normal Left: NormalRadial Pulse Right: Normal Left: NormalFemoral Pulse Right: Normal Left: NormalPopliteal Pulse Right: Normal Left: NormalPosterior Tibial Right: N/A Left: NormalDorsalis Pedal Right: Normal Left: NormalASSESSMENTThis office note has been dictated.Roseline Root MDDiagnostic tests reviewed for today's visit:Most recent labsMost recent imagingPLAN/RECOMMENDATION SThis office note has been dictated.Roseline Root MDSIGNATURE: Roseline Root MD, MD PATIENT NAME: Nickie Arredondo: October 06, 2018 : 1:45 PMReferring Provider: EVELIA BAINS [[id number]]Allergies As of Date: 10/06/2018(No Known Allergies)Date Reviewed: 10/06/2018Reviewed by: Liyah Solomon Ma - Fully AssessedReason for Visit: New Patient Evaluation [154]Primary Visit Diagnosis:Supraclavicular mass [R22.2] Other Visit Diagnosis:Enlarged thyroid gland [E04.9]Order(s):CONSULT TO ENT [9000] Order #: [id number]: 1Prescriptions as of 10/06/2018 Sig: TEMAZEPAM 30 MG [...] TABLET Take 1 tablet by mouth once d*Problem List As Of Date 10/06/2018 Noted Resolved UNILAT INGUINAL HERNIA [K40.90] INVALID FOR* Subclinical hyperthyroidism [E05.90] INVALID FOR* Enlarged thyroid gland [E04.9] INVALID FOR* Multiple thyroid nodules [E04.2] INVALID FOR*Medications Discontinued During This Encounter amoxicillin 500 mg ORAL capsule 40 c* 0 05/19/2011 10/06/2018 Class: Print RX Route: ORAL Sig: Take 1 capsule by mouth. 2 pills twice daily FOR 10 DAYS. Disc: Course of therapy completedEncounter Number: [id number] Status:Closed by ROSELINE ROOT MD on 10/06/18 Normal [facility] PROGRESSon 10-06-2018 Protein mass conc HNO ID: [id number] thor: CORBIN Myerservice: (none)Author Type: PhysicianType: Progress NotesFiled: 10/06/2018 4:33 PMNote Text:VASCULAR SURGERY INITIAL CONSULTSERVICE DATE: 10/06/2018SERVICE TIME: 1:46 PMPRIMAR CARE PHYSICIAN: EVONNE MaxEFERRING PROVIDER:Evelia Bains MD[address] [facility] [address]Rumpwlk requested for an opinion regarding the evaluation and treatment ofthe above. My final impression and recommendations will be communicatedback to the requesting physician by way of the shared medical record orletter via US mail.CHIEF COMPLAINT/HISTORY OF PRESENT ILLNESS:Chief Complaint: Req consult for CBTHistory of Present Illness:Nickie Browne is a 53 year old male presenting with CBT. Approx 4 mos agohe started having hypertension sx AND sought w/u with his PCP which notedenlarged thyroid AND he underwent total thyroidectomy. He cont to have HTNproblems AND further w/u noted the CBT. PAST MEDICAL/SURGICAL/FAMILY/SO CIAL HISTORYPAST MEDICAL HISTORYDiagnosis Date- Allergic rhinitis, cause unspecified- Carotid body tumor (HCC)- HTN (hypertension)- Multiple thyroid nodules- OsteoarthritisPAST SURGICAL HISTORYProcedure Laterality Date- CARPAL TUNNEL- PAST SURGICAL HISTORY OF 2018 thyroidectomy- REPAIR ING HERNIA,5+Y/O,REDUCIBL LeftFAMILY HISTORYProblem Relation Age of Onset- Thyroid Mother hypothyroid- Hypertension Father- Lipids Father- Heart FatherSOCIAL HISTORYSocial History Marital status: Spouse name: Years of education: Number of children:Social History Main Topics Smoking status: Never Smoker Smokeless tobacco: Never Used Alcohol use: Yes Comment: occasional Drug use: NoMEDICATIONS/ALLERGIESCur rent Outpatient Prescriptions:temazepam (RESTORIL) 30 mg cap Take 30 mg by mouth at bedtime as needed.Disp: Rfl: 0leflunomide (ARAVA) 20 mg tablet Take 20 mg by mouth once daily. Disp:Rfl:meloxicam (MOBIC) 15 mg tablet Take 15 mg by mouth once daily. Disp: Rfl:hydroxychloroquine sulfate (PLAQUENIL ORAL) Take 400 mg by mouth oncedaily. Disp: Rfl:metoprolol succinate 100 mg CSpX Take 100 mg by mouth once daily. Disp:Rfl:omeprazole (PRILOSEC) 20 mg capsule Take 20 mg by mouth once daily. Disp:Rfl:mometasone (NASONEX) 50 mcg/Actuation NASAL nasal spray Use in the noseonce daily. 2 SPRAYS EACH NOSTRIL DAILY-RINSE MOUTH AFTER USE. Disp: 1Bottle Rfl: 0levothyroxine (SYNTHROID) 100 mcg tablet Take 1 tablet by mouth oncedaily. Disp: Rfl:No current facility-administered medications for this visit.ALLERGIESNo Known AllergiesREVIEW OF SYSTEMSConstitutional: No weight loss, malaise or fevers. Pt reports the jittersAND insomniaHEENT: Negative for frequent or significant headachesRespiratory: Negative for cough, wheezing, or shortness of breathCardiovascular: Negative for chest pain, leg swelling or palpitationsGatrointestina l: Negative for abdominal discomfort, blood in stools orblack stools or change in bowel habits. Some constipation AND loose stoolsGenitourinary: No history of dysuria, frequency, or incontinenceMusculoskeleta l: Negative for joint pain or swelling, back pain or musclepain. + OA on several medsEndocrine: Negative for cold or heat intolerance, polyuria, polydipsia andgoiterHematology/Lympha tic: Negative for prolonged bleeding, bruising easily orswollen nodesNeurologic: No history or headaches, syncope, paralysis, seizures ortremorsIntegumentary: Negative for lesions, rash, and itching.Tests:MRI, CT, echo: see Aline Monique RNPHYSICAL EXAMVITALS: BP 143/75 Pulse 96 Temp (Src) 98.2 (Oral) Resp 18 Ht 5' 7"(1.70m) Wt 171 lb (77.6kg) SpO2 98% BMI 26.78 kg/(m2).General: Alert and orientedIntegumentary: Normal color, no rash, no lesions.HEENT: EOM, pupils equal, round and reactive.Cardiovascular: Normal S1 AND S2, no rubs, murmurs or gallops. No JVD.,Pulse regular.Lungs: Normal breath sounds, no wheezes or crackles.Abdomen: Soft, non-tender, no rigidity.Extremities: No deformity, no edema or tenderness, no joint swelling orclubbing.Neurological: Normal cognition and motor skills.Vascular: Pulses:Carotid Pulse Right: Normal Left: NormalBrachial Pulse Right: Normal Left: NormalRadial Pulse Right: Normal Left: NormalFemoral Pulse Right: Normal Left: NormalPopliteal Pulse Right: Normal Left: NormalPosterior Tibial Right: N/A Left: NormalDorsalis Pedal Right: Normal Left: NormalASSESSMENTThis office note has been dictated.MYAH Myersiagnostic tests reviewed for today's visit:Most recent labsMost recent imagingPLAN/RECOMMENDATION SThis office note has been dictated.CORBIN MyersIGNATURE: Roseline Root MD, MD PATIENT NAME: Nickie MataATE: October 06, 2018 : 1:45 PM Normal [facility] Protein mass conc HNO ID: [id number] thor: CORBIN Myerservice: Vascular SurgeryAuthor Type: PhysicianType: Progress NotesFiled: 10/09/2018 4:30 PMNote Text:NAME: LINN BROWNE NO: [id number] OF SERVICE: 10/06/2018DATE OF : 1965Please see Epic note for full details.History of Present Illness: He is a 53-year-old male presenting with apossible carotid body tumor. The patient was noted to have a mass aroundthe base of the right carotid artery. It is just in the supraclavicularregion. This was noted on a CT scan. It was found after he had somehypertensive episodes after a goiter resection. This goiter had somemediastinal involvement. The concern is that this tumor is aparaganglioma. However, the fitness and wellness coordinator, Dr. Jones, has evaluatedthis patient and found that there are no catecholamines or metanephrinesthat are noted. A 24-hour urine was negative. An MIBG scan was negativefor paraganglioma or pheochromocytoma. I am not sure the etiology ofthis right proximal common carotid mass.Physical Examination: The mass cannot be palpated at this time. He isstill somewhat swollen from his thyroid removal. He does not smoke andhas never smoked.Assessment:Right-si ded tumor anterior to the right common carotid in the proximalportion.Plan:We will send the patient to ENT for evaluation to rule out any othermasses at this time before attempting resection. Follow up with me afterseeing CT scan for evaluation. I recommended the patient go back to for further evaluation. Potentially, we can send the patient forlabs for dopamine or VMAs.Roseline Root/089Audio #: [id number] Dictated: 10/06/2018 16:16:05Date Typed: 10/08/2018 09:36:50Date Revised: Normal [facility] CT OUTSIDE CD DICOM IMPORT - NBNRon 09-27-2018 CT OUTSIDE CD DICOM IMPORT -NBNR Images were obtained outside of [facility] [id number] Normal [facility] CT OUTSIDE CD DICOM IMPORT -NBNR Images were obtained outside of [facility] [id number] Normal [facility] NM OUTSIDE CD DICOM IMPORT - NBNRon 09-22-2018 NM OUTSIDE CD DICOM IMPORT -NBNR Images were obtained outside of [facility] [id number] Normal [facility] CNPNon 09-09-2018 CNPN Telephone (ENDMED) NICKIE BROWNE ([id number]) 1965 M IPADate Time Provider Whfushehfm74/18/18 KATALINA JONES During your visit today, we recorded the following information about you:Nikki Lama Ma 09/09/2018 8:13 AM SignedOffice Note on docs desk/basket for review [facility].Please Audi Jones MD 09/09/2018 12:29 PM SignedReviewed, please fax the results of urine metanephrines and catecholamines toDrRishi Rodriguez officeThis screen was negative, which rules out PheochromocytomaThis seems to be there concern despite the fact that his screen was negativeDrKlever can contact me directly if he has any questionsKatalina Jones MD09/09/18Nikki Lama Ma 09/09/2018 1:07 PM SignedLab results and message from Dr. Jones faxed to office [phone] on September 09, 2018; transmission ok.Magi Cash RN 09/09/2018 3:27 PM SignedPatient's called.Below message was provided to her. She [facility].Allergies As of Date: 09/09/2018(No Known Allergies)Date Reviewed: 08/05/2018Reviewed by: Katalina Jones - Fully AssessedReason for Visit: Office Note [Other] Cmt: [facility], [facility], AND ThroatPrescriptions as of 09/09/2018 Sig: LEFLUNOMIDE 20 MG [...] N* Use in the nose once daily. *Problem List As Of Date 09/09/2018 Noted Resolved UNILAT INGUINAL HERNIA [K40.90] INVALID FOR* Subclinical hyperthyroidism [E05.90] INVALID FOR* Enlarged thyroid gland [E04.9] INVALID FOR* Multiple thyroid nodules [E04.2] INVALID FOR* Status:Closed by NIKKI LAMA MA on 09/09/18 Normal [facility] CNPNon 08-16-2018 CNPN Telephone (ENDMED) NICKIE BROWNE ([id number]) 1965 [facility] Time Provider Department08/16/18 KATALINA JONES During your visit today, we recorded the following information about you:Melia Jose RN 08/16/2018 10:21 AM SignedPatient calling for his test resultsNoted message to call when results are all inPer patient ok to give results to Erin.Patient Name Nickie Borja ([id number]) Male 11:51 AM - , Lab Mu Oru InComponent ResultsComponent Value Range AND Units Status Performing LabMetanephrine 153 52 - 341 ug/24 hr Final CCMNormetanephrine 439 88 - 444 ug/24 hr Final CCMTot Metanephrine 592 140 - 785 ug/24 hr Final CCMComment:This test was developed Nickie Borja ([id number]) Male ?1:18 PM - , Lab Mu Oru InComponent ResultsComponent Value Range AND Units Status Performing LabPeriod 24 Final CCMUrine Volume 2252 Final CCMCreatinine, Ur Random (UCRR) 61 mg/dL Final ARUPCreatinine mg/day, Urine 1374 800 - 2,100 mg/d Franklin Cash RN 08/16/2018 11:01 AM SignedThis was already documented in an earlier call, attached to the already openencounter from Dr Jones.This is a duplicate.Encounter closed.Katalina Jones MD 08/16/2018 3:58 PM SignedPlease notify the patient that his urine metanephrines and catecholamines arenormal, this rules out a pheochromocytoma.At this point, no further testing is needed from my standpoint.Please fax this information to - ENT in Arabella Jones MD08/16/18Nicyeimy Lama Ma 08/17/2018 11:46 AM SignedCalled and spoke with PT'S , expressed understandingMailed copy of labs to patientFaxed copy of labs to PCP and Dr. Galvan closedAllergies As of Date: 08/16/2018(No Known Allergies)Date Reviewed: 08/05/2018Reviewed by: Katalina Jones - Fully AssessedReason for Visit: Results [95]Prescriptions as of 08/16/2018 Sig: LEFLUNOMIDE 20 MG [...] N* Use in the nose once daily. *Problem List As Of Date 08/16/2018 Noted Resolved UNILAT INGUINAL HERNIA [K40.90] INVALID FOR* Subclinical hyperthyroidism [E05.90] INVALID FOR* Enlarged thyroid gland [E04.9] INVALID FOR* Multiple thyroid nodules [E04.2] INVALID FOR* Status:Closed by MAGI CASH RN on 08/16/18 Normal [facility] Catecholamine Fra Uron 08-09 Cholesterol mass conc SEE NOTE Normal [facility] Comment on above: Result Comment: (NOT E)TEST INFORMATION: Catecholamines Fractionated, Urine FreeThe optimal specimen for this testing is a 24-hour urinecollection. Mass per day calculations are not reported forpatients younger than 4 years of age and for the followingspecimen types: a random collection, a collection with duration ofless than 20 hours, a collection with duration of greater than 28hours, or a collection with total volume less than 400 mL (if 18years of age or older) or greater than 5000 mL (all ages). Ratiosto creatinine may be useful for these evaluations.Smaller increases in catecholamine concentrations (less than twotimes the upper limit) usually are the result of physiologicalstimuli, drugs, or improper specimen collection. Significantelevation of one or more catecholamines (three or more times theupper reference limit) is associated with an increased probabilityof a neuroendocrine tumor.Access complete set of age- and/or gender-specific referenceintervals for this test in the [employer] [facility] Test Directory([employer]).Test developed and characteristics determined by [employer]. See Compliance Statement B: [employer]/CS Performed By: #### P V ####[facility], [place] [phone]#### URCAT2 ####WAFanhuan.com[address] [place], [place] [phone] [place]ille [address], [place] [phone] Creatinine Random Ur 61 mg/dL Normal [facility] Comment on above: Performed By: #### P V ####[facility] [place], [place] [phone]#### URCAT2 ####WAFanhuan.com[address] [place], [place] [phone] Ville [address], [place] [phone] Creatinine,mg/day Ur 1374 mg/d Normal 800-2100 [facility] Comment on above: Result Comment: (NOT E)Performed by k[employer].io,[address] [place] [address] lpn.[employer], Vik Napoles MD, Lab. Director Performed By: #### P V ####[place] [address], [place] [phone]#### URCAT2 ####[address] [phone] West Chester Hospital[address]CB[address], [place] [phone] Dopa, Ur per 24hr 153 ug/d Normal 77-324 [facility] Comment on above: Result Comment: (NOT E)REFERENCE INTERVAL: Dopamine, Urine - ug/dAccess complete set of age- and/or gender-specific referenceintervals for this test in the [facility] Laboratory Test Directory([employer]). Performed By: #### P V ####[place] [address], [place] [phone]#### URCAT2 ####[address] [phone] Ville [address]CB[address], [place] [phone] Dopa, Ur per vol 68 ug/L Normal [facility] Comment on above: Performed By: #### P V ####[place] [address], [place] [phone]#### URCAT2 ####[address] [phone] West [facility] Hospital[address]CB[address], [place] [phone] Dopa, Ur ratio TAKER DOWN 111 ug/g TAKER DOWN Normal 0-250 [facility] Comment on above: Performed By: #### P V ####[place] [address], [place] [phone]#### URCAT2 ####[address] [phone] Ville [address]CB[address], [place] [phone] Epi, Ur per 24hr 7 ug/d Normal 1-7 [facility] Comment on above: Result Comment: (NOT E)REFERENCE INTERVAL: Epinephrine, Urine - ug/dAccess complete set of age- and/or gender-specific referenceintervals for this test in the [facility] Laboratory Test Directory([employer]). Performed By: #### P V ####[facility] AveCD[address]iel [place] [phone]#### URCAT2 ####[address] [phone] Ville [address] AvJoshua [address] [phone] Epi, Ur per volume 3 ug/L Normal [facility] Comment on above: Performed By: #### P V ####[place] [address] [phone]#### URCAT2 ####[address] [phone] Ville [address] AvJosh[address] [phone] Epi, Ur ratio to TAKER DOWN 5 ug/g TAKER DOWN Normal 0-20 [facility] Comment on above: Performed By: #### P V ####[facility] [place] [phone]#### URCAT2 ####[address] [phone] West Chester Hospital[address] AvJoshua [place] [phone] Hours Collected 24 Normal [facility] Comment on above: Performed By: #### P V ####[facility] [place] [phone]#### URCAT2 ####[address] [phone] Ville [address]CB[address], [place] [phone] Norepi, Ur per 24hr 70 ug/d Normal 16-71 [facility] Comment on above: Result Comment: (NOT E)REFERENCE INTERVAL: Norepinephrine, Urine - ug/dAccess complete set of age- and/or gender-specific referenceintervals for this test in the [employer] [facility] Test Directory([employer]). Performed By: #### P V ####[place] [address] [place] [phone]#### URCAT2 ####[address] [phone] Ville [address] [place] [phone] Norepi, Ur per vol 31 ug/L Normal [facility] Comment on above: Performed By: #### P V ####[place] [address] [place] [phone]#### URCAT2 ####[address] [phone] Ville [address]Josh[address] [place] [phone] Norepi, Ur ratio TAKER DOWN 51 ug/g TAKER DOWN High 0-45 [facility] Comment on above: Performed By: #### P V ####[place] [address], [place] [phone]#### URCAT2 ####[address] [phone] Ville [address]Josh[address] [place] [phone] Total Volume 2252 Normal [facility] Comment on above: Performed By: #### P V ####[place] [address], [place] [phone]#### URCAT2 ####[place] [address] [phone] Ville [address] AveCBor[address], [place] [phone] Metanephrine Ur 24Hron 08-09 Metanephrines,Urine 153 ug/24 hr Normal 52-341 [facility] Comment on above: Performed By: #### P V, UMETAN ####[place] [address], [place] [phone] Normetanephrines,Ur 439 ug/24 hr Normal 88-444 [facility] Comment on above: Performed By: #### P V, UMETAN ####[place] [address], [place] [phone] Total Metanephrines 592 ug/24 hr Normal 140-785 [facility] Comment on above: Result Comment: This test was developed and its performance characteristics determined by [facility]'s [facility] [place] ([facility]).It has not been cleared or approved by the FDA. -[facility] is regulated under CLIA as qualified to perform high-complexity testing.This test is used for clinical purposes. It should not be regarded as investigational or for research. Performed By: #### P V, UMETAN ####[place] [address], [place] [phone] Period / Volumeon 08-09-2018 Collection End Date 028040 [facility] Comment on above: Performed By: #### P V, UMETAN ####[place] [address], [place] [phone] Performed By: #### P V ####[place] [address], [place] [phone]#### URCAT2 ####[facility] [address] [place] [address] [phone] Ville [address], [place] [phone] Collection End Time 1030 [facility] Comment on above: Performed By: #### P V ####[facility]CD[address] [place] [phone]#### URCAT2 ####[place] [address] [place], [place] [phone] West [facility] Hospital[address]CDaniel [place] [phone] Collection End Time 1024 [facility] Comment on above: Performed By: #### P V, UMETAN ####[place] [address] [place] [phone] Collection Start Date 120382 [facility] Comment on above: Performed By: #### P V, UMETAN ####[place] [address] [place] [phone] Performed By: #### P V ####[facility] AveCNicole [place] [phone]#### URCAT2 ####AMBIKA [address] [place] [address] [phone] [facility] Hospital[address] Collection Start Time 1024 [facility] Comment on above: Performed By: #### P V, UMETAN ####[facility] [place] [phone] Collection Start Time 1030 [facility] Comment on above: Performed By: #### P V ####[facility] [place] [phone]#### URCAT2 ####ARUP [address] [place], [place] [phone] West [facility] Hospital[address]CDaniel [place] [phone] Period 24 hr [facility] Comment on above: Performed By: #### P V, UMETAN ####[facility] [address]hem[address], [place] [phone] Performed By: #### P V ####[facility] [address], [place] [phone]#### URCAT2 ####[facility] [address] [place], [place] [phone] [place]ille [address], [place] [phone] Volume 2252 mL Normal [facility] Comment on above: Performed By: #### P V, UMETAN ####[facility] [address]rtinosrs[address], [place] [phone] Performed By: #### P V ####[facility] [address]xp[address]yax[address], [place] [phone]#### URCAT2 ####[facility] [address] [place], [place] [phone] Ville [address] [place], [place] [phone] Natalie 08-05-2018 CNOV Office Visit (TIMA) [facility] ([id number]) 1965 [facility] Department08/05/18 9:45 AM KATALINA JONES During your visit today, we recorded the following information about you: Pulse Blood pressure Weight Height 90/minute 137/85 73.7 kg 1.683 Jorden Joens MD 08/05/2018 11:23 AM SignedREFERRING PHYSICIAN: SelfREASON FOR REFERRAL:Thyroid noduleMy final recommendations will be communicated back to the requesting physicianby way of shared Medical record or a letter via [place] mailSUBJECTIVE:Nickie Browne is a 53 year old male was referred for evaluation of a thyroidnodules and adrenal evaluationHistory in brief, he was noted to have enlarged thyroid during rheumatologyvisitFurther evaluation with thyroid US revealed an enlarged thyroid and bilateralthyroid nodules measuring 2.2-3.0 cmRight lobe- 9.4x3.2x3.1 cmRight thyroid nodule- 2.2 cmLeft thyroid lobe- 9.4x3.0x2.4 cmLeft thyroid nodule 3.0 cm, 1.5 cmHe underwent FNA of the dominant left thyroid last This was done by ENTRelated symptoms:Swallowing difficulty: NoShortness of breath when lying flat: NoHistory of radiation exposure to the neck: NoFamily history of thyroid cancer: Marvin was also noted to have borderline TSH- 0.34 (0.35-3.74)Free thyroid hormones were normalRAI scan: 4 hours uptake- 13.6% and 24 hour Uptake 33.7%Cold nodule in the left inferior thyroid pole+tremors and palpitationsHe has been experiencing dizziness and BP fluctuationsReports that his SBP ranges 117-150s when he is stressed out or while he iswatching a scary movieNo readings in 160-180No headaches or dyspneaPatient also reports syncopeHe has been hospitalized and evaluated by cardiologyCT Abdomen- no adrenal nodulesPlasma norepinephrine 1003 (0-874)Epinephrine 269 (0-62)PAST MEDICAL HISTORYDiagnosis Date- Allergic rhinitis, cause unspecified- Multiple thyroid nodules- OsteoarthritisPAST SURGICAL HISTORYProcedure Laterality Date- CARPAL TUNNEL- REPAIR ING HERNIA,5+Y/O,REDUCIBL LeftALLERGIESNo Known AllergiesSocial History Marital status: Spouse name: Years of education: Number of children:Social History Main Topics Smoking status: Never Smoker Smokeless tobacco: Never Used Alcohol use: Yes Comment: occasional Drug use: NoFAMILY HISTORYProblem Relation Age of Onset- Thyroid Mother hypothyroid- Hypertension Father- Lipids Father- Heart FatherMEDICATIONS:Current Outpatient Prescriptions on File Prior to Visit:mometasone (NASONEX) 50 mcg/Actuation NASAL nasal spray Use in the nose oncedaily. 2 SPRAYS EACH NOSTRIL DAILY-RINSE MOUTH AFTER USE.amoxicillin 500 mg ORAL capsule Take 1 capsule by mouth. 2 pills twice dailyFOR 10 DAYS.No current facility-administered medications on file prior to visit.REVIEW OF SYSTEMS:General: no fever, chills or acute changes in weightSkin: no rashes, pruritusEyes: no blurred or double vision or eye painCardiac: denies chest pain or orthopnea, + heart palpitationsPulmonary: denies wheezing, productive cough or exertional dyspneaGI: denies nausea, vomiting, diarrhea, constipationNeuro: denies numbness/tingling in hands or feetMusc: no muscle weaknessEndocrine: denies polyuria, polydipsia, nocturiaHematology: Negative for anemia, easy bleeding and bruising.PHYSICAL EXAMINATION:BP 137/85 (BP Site: Left Arm, BP Position: Sitting, BP Cuff Size: RegularAdult) Pulse 90 Ht 168.3 cm (5' 6.25") Wt 73.7 kg (162 lb 6.4 oz) SpO2 99% BMI 26.01 kg/m?General: no acute distress, alert and orientated X 3Eyes:pupils are equally round, anicteric scleraNeck - supple, no significant adenopathy,Thyroid: thyroid is significantly enlarged, + palpable nodules bilaterallyNeuro - alert, oriented, normal speech, no focal findings noted, patellarreflexes 2+CV - normal rate and regular rhythm, S1 and S2 normal.Chest:Lungs clear to auscultation. No wheezing, rhonchi, ralesAbdominal: soft, non-tender. Bowel sounds normal. No masses,bowel soundsMusculoskeletal - no joint tenderness, deformity or swelling. +tremor notedExtremities- no edema, no discolorationSkin- no rash or erythemaLABS AND IMAGINGSee aboveASSESSMENT AND PLAN:1. Multiple Thyroid nodules:2. Enlarged thyroid3. Subclinical hyperthyroidismPatient has a significantly enlarged thyroidSurprisingly he has no compressive symptomsNo toxic nodule per SINGH scanThe left inferior thyroid nodule appeared cold on SINGH scanHe already underwent FNAHe has a follow up appt with ENT next week to review the cytopathology resultsTSH was slightly lowRepeat have been normalCheck TRABs4. Elevated norepinephrine level5. Tachycardia6. BP fluctuationCT scan was negative for adrenal nodules, therefore, pheo is excludedHowever, paraganglioma is a possibilityCheck 24 hour urine metanephrinesIf that comes back significantly elevated, then will proceed with MIBGFollow up to be determined based on lab resultsSpent approx 60 minutes with patient with over 50% of time spent in discussionand counseling about his symptoms, reviewing outside labs and imaging anddetermining further plan of careVery complex patient with multiple medical concernsKatalina Jones MD08/05/18vernon Jones MD 08/05/2018 10:28 AM SignedGet the blood test drawnThen do the 24 hour urine collectionI will notify you once the labs become availableFollow up to be determined based on the resultsReferring Provider: SELF [200]Allergies As of Date: 08/05/2018(No Known Allergies)Date Reviewed: 08/05/2018Reviewed by: Katalina Jones - Fully AssessedReason for Visit: Thyroid Problem [110]Primary Visit Diagnosis:Multiple thyroid nodules [E04.2] Other Visit Diagnoses:Enlarged thyroid gland [E04.9] Subclinical hyperthyroidism [E05.90] Elevated norepinephrine level [E34.9] Tachycardia [R00.0] Elevated BP without diagnosis of hypertension [R03.0]Order(s):TSH RECEPTOR AB [SQTRAB] Order #: [id number] FUTURE METANEPHRINES 24H UR [SQUMETAN] Order #: [id number] FUTURE CATECHOLAMINES FRACTIONATED, URINE FREE [SQURCAT2] Order #: [id number] FUTURE TSH BLD [SQTSH] Order #: [id number] FUTURE T4 FREE/FREE THYROX [SQFT4] Order #: [id number] FUTURE T3 FREE BLD [SQFREET3] Order #: [id number] FUTUREPrescriptions as of 08/05/2018 Sig: LEFLUNOMIDE 20 MG [...] CAPSULE Take 1 capsule by mouth. 2 pi*Problem List As Of Date 08/05/2018 Noted Resolved [...] up to be determined based on the resultsEncounter Number: [id number] Status:Closed by KATALINA JONES DO on 08/05/18 Normal [facility] Free T3on 08-05-2018 T3 free mass conc 3.9 pg/mL Normal 2.3-4.1 [facility] Comment on above: Performed By: #### T SH, FREET3, FT4, TRAB ####[place] [address] [place], [place] [phone] Free T4on 08-05-2018 T4 free mass conc 1.4 ng/dL Normal 0.9-1.7 [facility] Comment on above: Performed By: #### T SH, FREET3, FT4, TRAB ####[facility] [address] [place], [place] [phone] PROGRESSon 08-05-2018 Protein mass conc HNO ID: [id number] thor: Katalina Josephice: (none)Author Type: PhysicianType: Progress NotesFiled: 08/05/2018 11:23 AMNote Text:REFERRING PHYSICIAN: SelfREASON FOR REFERRAL:Thyroid noduleMy final recommendations will be communicated back to the requestingphysician by way of shared Medical record or a letter via [place] mailSUBJECTIVE:Nickie Browne is a 53 year old male was referred for evaluation of athyroid nodules and adrenal evaluationHistory in brief, he was noted to have enlarged thyroid duringrheumatology visitFurther evaluation with thyroid US revealed an enlarged thyroid andbilateral thyroid nodules measuring 2.2-3.0 cmRight lobe- 9.4x3.2x3.1 cmRight thyroid nodule- 2.2 cmLeft thyroid lobe- 9.4x3.0x2.4 cmLeft thyroid nodule 3.0 cm, 1.5 cmHe underwent FNA of the dominant left thyroid last This was done by ENTRelated symptoms:Swallowing difficulty: NoShortness of breath when lying flat: NoHistory of radiation exposure to the neck: NoFamily history of thyroid cancer: Marvin was also noted to have borderline TSH- 0.34 (0.35-3.74)Free thyroid hormones were normalRAI scan: 4 hours uptake- 13.6% and 24 hour Uptake 33.7%Cold nodule in the left inferior thyroid pole+tremors and palpitationsHe has been experiencing dizziness and BP fluctuationsReports that his SBP ranges 117-150s when he is stressed out or while heis watching a scary movieNo readings in 160-180No headaches or dyspneaPatient also reports syncopeHe has been hospitalized and evaluated by cardiologyCT Abdomen- no adrenal nodulesPlasma norepinephrine 1003 (0-874)Epinephrine 269 (0-62)PAST MEDICAL HISTORYDiagnosis Date- Allergic rhinitis, cause unspecified- Multiple thyroid nodules- OsteoarthritisPAST SURGICAL HISTORYProcedure Laterality Date- CARPAL TUNNEL- REPAIR ING HERNIA,5+Y/O,REDUCIBL LeftALLERGIESNo Known AllergiesSocial History Marital status: Spouse name: Years of education: Number of children:Social History Main Topics Smoking status: Never Smoker Smokeless tobacco: Never Used Alcohol use: Yes Comment: occasional Drug use: NoFAMILY HISTORYProblem Relation Age of Onset- Thyroid Mother hypothyroid- Hypertension Father- Lipids Father- Heart FatherMEDICATIONS:Current Outpatient Prescriptions on File Prior to Visit:mometasone (NASONEX) 50 mcg/Actuation NASAL nasal spray Use in the noseonce daily. 2 SPRAYS EACH NOSTRIL DAILY-RINSE MOUTH AFTER USE.amoxicillin 500 mg ORAL capsule Take 1 capsule by mouth. 2 pills twicedaily FOR 10 DAYS.No current facility-administered medications on file prior to visit.REVIEW OF SYSTEMS:General: no fever, chills or acute changes in weightSkin: no rashes, pruritusEyes: no blurred or double vision or eye painCardiac: denies chest pain or orthopnea, + heart palpitationsPulmonary: denies wheezing, productive cough or exertional dyspneaGI: denies nausea, vomiting, diarrhea, constipationNeuro: denies numbness/tingling in hands or feetMusc: no muscle weaknessEndocrine: denies polyuria, polydipsia, nocturiaHematology: Negative for anemia, easy bleeding and bruising.PHYSICAL EXAMINATION:BP 137/85 (BP Site: Left Arm, BP Position: Sitting, BP Cuff Size: RegularAdult) Pulse 90 Ht 168.3 cm (5' 6.25") Wt 73.7 kg (162 lb 6.4 oz) SpO2 99% BMI 26.01 kg/m?General: no acute distress, alert and orientated X 3Eyes:pupils are equally round, anicteric scleraNeck - supple, no significant adenopathy,Thyroid: thyroid is significantly enlarged, + palpable nodules bilaterallyNeuro - alert, oriented, normal speech, no focal findings noted, patellarreflexes 2+CV - normal rate and regular rhythm, S1 and S2 normal.Chest:Lungs clear to auscultation. No wheezing, rhonchi, ralesAbdominal: soft, non-tender. Bowel sounds normal. No masses,bowel soundsMusculoskeletal - no joint tenderness, deformity or swelling. +tremornotedExtremities- no edema, no discolorationSkin- no rash or erythemaLABS AND IMAGINGSee aboveASSESSMENT AND PLAN:1. Multiple Thyroid nodules:2. Enlarged thyroid3. Subclinical hyperthyroidismPatient has a significantly enlarged thyroidSurprisingly he has no compressive symptomsNo toxic nodule per SINGH scanThe left inferior thyroid nodule appeared cold on SINGH scanHe already underwent FNAHe has a follow up appt with ENT next week to review the cytopathologyresultsTSH was slightly lowRepeat have been normalCheck TRABs4. Elevated norepinephrine level5. Tachycardia6. BP fluctuationCT scan was negative for adrenal nodules, therefore, pheo is excludedHowever, paraganglioma is a possibilityCheck 24 hour urine metanephrinesIf that comes back significantly elevated, then will proceed with MIBGFollow up to be determined based on lab resultsSpent approx 60 minutes with patient with over 50% of time spent indiscussion and counseling about his symptoms, reviewing outside labs andimaging and determining further plan of careVery complex patient with multiple medical concernsKatalina Jones MD08/05/18 Normal [facility] TSHon 08-05-2018 Thyrotropin Qn 0.196 uU/mL Low 0.400-5.50 0 [facility] Comment on above: Performed By: #### T SH, FREET3, FT4, TRAB ####[facility] [place], [place] [phone] TSH Receptor Ab.on 8 TBI <1.0 Normal <1.0 [facility] Comment on above: Result Comment: This test was developed and its performance characteristics determined by [facility] [place] ([facility]).It has not been cleared or approved by the FDA. -[facility] is regulated under CLIA as qualified to perform high-complexity testing.This test is used for clinical purposes. It should not be regarded as investigational or for research. Performed By: #### T SH, FREET3, FT4, TRAB ####[facility] [place], [place] [phone] TSI <13 Normal <150 [facility] Comment on above: Performed By: #### T SH, FREET3, FT4, TRAB ####[facility] [address] [place], [place] [phone] CT OUTSIDE CD DICOM IMPORT - NBNRon 07-13-2018 CT OUTSIDE CD DICOM IMPORT -NBNR Images were obtained outside of [facility] [id number] Normal [facility] US OUTSIDE CD DICOM IMPORT - NBNRon 07-06-2018 US OUTSIDE CD DICOM IMPORT -NBNR Images were obtained outside of [facility] [id number] Normal [facility] NM OUTSIDE CD DICOM IMPORT - NBNRon 06-23-2018 NM OUTSIDE CD DICOM IMPORT -NBNR Images were obtained outside of [facility] [id number] Normal [facility] US OUTSIDE CD DICOM IMPORT - NBNRon 06-15-2018 US OUTSIDE CD DICOM IMPORT -NBNR Images were obtained outside of [facility] [id number] Normal [facility] XR OUTSIDE CD DICOM IMPORT - NBNRon 06-05-2018 XR OUTSIDE CD DICOM IMPORT -NBNR Images were obtained outside of [facility] [id number] Normal [facility] Office Visiton 06-16-2016 Documentation of current medications (procedure) Done Invalid Interpretation Code [facility] Work Phone: [phone] Tobacco use CPHS Never smoker Invalid Interpretation Code [facility] Medicine and Orthopaedics Work Phone: [phone] Vital Signs Date Time Vital Sign Value Performing Clinician Facility 07-14-2025 07:58-0400 Body height 175.[address] Evelia Bains MD Work Phone: [facility] 07-14-2025 07:58-0400 Body mass index (BMI) [Ratio] 24.7 kg/m2 Dr. Evelia Bains MD Work Phone: [facility] 07-14-2025 07:58-0400 Body weight 76.[address] Evelia Bains MD Work Phone: [facility] 06-12-2025 11:23-0400 Body temperature 97.4 [degF] Dr. Evelia Bains MD Work Phone: [facility] 06-12-2025 11:23-0400 Diastolic blood pressure 99 mm[Hg] Dr. Evelia aBins MD Work Phone: [facility] 06-12-2025 11:23-0400 Heart rate 80 /min Dr. Evelia Bains MD Work Phone: [facility] 06-12-2025 11:23-0400 Respiratory rate 18 /min Dr. Evelia Bains MD Work Phone: [facility] 06-12-2025 11:23-0400 SaO2% (BldA) [Mass fraction] 100 % Dr. Evelia Bains MD Work Phone: [facility] 06-12-2025 11:23-0400 Systolic blood pressure 131 mm[Hg] Dr. Evelia Bains MD Work Phone: [facility] 06-12-2025 09:19-0400 Body height 175.[address] Evelia Bains MD Work Phone: [facility] 06-12-2025 09:19-0400 Body mass index (BMI) [Ratio] 24.6 kg/m2 Dr. Evelia Bains MD Work Phone: [facility] 06-12-2025 09:19-0400 Body weight 75.[address] Evelia Bains MD Work Phone: [facility] 01-28-2024 15:23-0500 Body height 175.[address] Evelia Bains Work Phone: [facility] 01-28-2024 15:23-0500 Body mass index (BMI) [Ratio] 25.2 kg/m2 Dr. Evelia Bains Work Phone: [facility] 01-28-2024 15:23-0500 Body weight 77.[address] Evelia Bains Work Phone: [facility] 01-28-2024 15:23-0500 Diastolic blood pressure 76 mm[Hg] Dr. Evelia Bains Work Phone: [facility] 01-28-2024 15:23-0500 Systolic blood pressure 128 mm[Hg] Dr. Evelia Bains Work Phone: [facility] 07-22-2022 22:20-0400 Respiratory rate 18 /min [facility] Work Phone: 07-22-2022 22:00-0400 Diastolic blood pressure 86 mm[Hg] [facility] Work Phone: 07-22-2022 22:00-0400 Heart rate 84 /min [facility] Work Phone: 07-22-2022 22:00-0400 SaO2% (BldA) [Mass fraction] 95 % [facility] Work Phone: 07-22-2022 22:00-0400 Systolic blood pressure 132 mm[Hg] [facility] Work Phone: 07-22-2022 18:20-0400 Body height 175.26 cm [facility] Work Phone: 07-22-2022 18:20-0400 Body mass index (BMI) [Ratio] 25.8 kg/m2 [facility] Work Phone: 07-22-2022 18:20-0400 Body temperature 97.6 [degF] [facility] Work Phone: 07-22-2022 18:20-0400 Body weight 79.37 kg [facility] Work Phone: 01-10-2022 11:53-0500 Body height 175.[address] Evelia Bains Work Phone: [facility] Work Phone: 05-03-2015 08:05-0400 BMI (Body Mass Index) 23.77 kg/m2 [facility] Work Phone: 05-03-2015 08:05-0400 Weight 73.03 kg [facility] Work Phone: 06-08-2014 07:59-0400 BP Diastolic 80 mm[Hg] [facility] Work Phone: 06-08-2014 07:59-0400 BP Systolic 119 mm[Hg] [facility] Work Phone: 06-08-2014 07:59-0400 Height 175.26 cm [facility] Work Phone: NEGATED: Highlighted [id number] 13:11-0400 Body height 170.18 cm Cee Almazan RN [facility] Work Phone: NEGATED: Highlighted [id number] 13:11-0400 Body height 170 cm Cee Almzaan RN [facility] Work Phone: NEGATED: Highlighted [id number] 13:11-0400 Body mass index (BMI) [Ratio] 26.56 kg/m2 Cee Almazan RN [facility] Work Phone: NEGATED: Highlighted [id number] 13:11-0400 Body weight 76.66 kg Cee Almazan RN [facility] Work Phone: NEGATED: Highlighted [id number] 13:11-0400 Body weight 77 kg Cee Almazan RN [facility] Work Phone: NEGATED: Highlighted [id number] 10:52-0400 Body height 170.18 cm Simba Mcelroy [facility] Work Phone: NEGATED: Highlighted [id number] 10:52-0400 Body height 170 cm Simba Mcelroy [facility] Work Phone: NEGATED: Highlighted [id number] 10:52-0400 Body mass index (BMI) [Ratio] 26.56 kg/m2 Simba Mcelroy [facility] Work Phone: NEGATED: Highlighted [id number] 10:52-0400 Body weight 76.66 kg Simba Mcelroy [facility] Work Phone: NEGATED: Highlighted [id number] 10:52-0400 Body weight 77 [facility] Work Phone: NEGATED: Highlighted [id number] 11:26-0500 Body height 170.18 cm Promise Vallejo LPN [facility] Work Phone: NEGATED: Highlighted [id number] 11:26-0500 Body height 170 cm Promise Vallejo LPN [facility] Work Phone: NEGATED: Highlighted [id number] 11:26-0500 Body mass index (BMI) [Ratio] 26.56 kg/m2 Promise Vallejo LPN [facility] Work Phone: NEGATED: Highlighted [id number] 11:26-0500 Body weight 76.66 kg Promise Vallejo LPN [facility] Work Phone: NEGATED: Highlighted [id number] 11:26-0500 Body weight 77 kg Promise Vallejo LPN [facility] Work Phone: Encounters Encounter Date Encounter Type Care Provider Facility Start: 07-26-2025 End: 07-26-[address] Evelia Bains MD Work Phone: [facility] Start: 07-26-2025 End: 07-26-[address] Fermin Alfred DO -[facility] Work Phone: Start: 07-25-2025 End: 07-26-2025 ambulatory Evelia Bains Facility:[facility] Start: 07-25-[address] Royce garcia MD -Physical Therapy Work Phone: Start: 07-14-2025 End: 07-14-[address] Royce Soto MD -[facility] Work Phone: Start: 07-14-2025 End: 07-14-[address] Evelia Bains MD Work Phone: -[facility] Start: 06-12-2025 Non-patient / Non-visit Dr. Francie Cedeño MD -[facility] Start: 06-12-2025 End: 06-12-2025 Admission to same day surgery center Dr. Francie Cedeño MD -Endoscopy Work Phone: Start: 06-12-2025 End: 06-12-[address] Evelia Bains MD Work Phone: -Endoscopy Start: 04-06-2025 End: 04-06-[address] Evelia Bains MD Work Phone: [facility] Work Phone: Start: 04-06-2025 End: 04-06-[address] Evelia Bains MD Work Phone: -Laboratory [place] Work Phone: Start: 04-06-2025 End: 04-06-2025 ambulatory [facility] Facility:[facility] Start: 01-27-2025 End: 01-27-[address] Evelia Bains MD Work Phone: [facility] Work Phone: Start: 01-27-2025 End: 01-27-[address] [facility] Start: 01-27-2025 End: 01-27-2025 ambulatory Evelia Mimiriam Facility:[facility] Start: 10-01-2024 End: 10-01-2024 ambulatory [facility] Facility:[facility] Start: 04-03-2024 [facility] Start: 01-28-2024 End: 01-28-[address] Evelia Bains Work Phone: [facility] Work Phone: Start: 01-28-2024 End: 01-28-[address] Evelia Bains Work Phone: [facility] Work Phone: Start: 12-21-2023 End: 12-21-2023 ambulatory [facility] Work Phone: Start: 12-21-2023 End: 12-21-2023 Patient encounter procedure [facility]-Laboratory, [place] Work Phone: Start: 01-31-2023 End: 01-31-2023 ambulatory [facility] Work Phone: Start: 01-31-2023 End: 01-31-2023 Patient encounter procedure [facility]-Laboratory Start: 01-08-2023 Letter encounter [facility] Start: 12-30-2022 End: 12-30-2022 ambulatory [facility] Work Phone: Start: 12-30-2022 End: 12-30-2022 Discharged Recurring [facility]-Physical Therapy Start: 12-30-2022 Registered Recurring [facility]-Physical Therapy Start: 11-17-2022 End: 11-17-2022 ambulatory [facility] Work Phone: Start: 11-17-2022 End: 11-17-2022 Patient encounter procedure [facility] Start: 10-17-2022 End: 10-17-2022 Patient encounter procedure [facility] Start: 10-11-2022 End: 10-11-2022 ambulatory [facility] Work Phone: Start: 10-11-2022 End: 10-11-2022 Patient encounter procedure [facility]-Laboratory Start: 10-02-2022 Registered Recurring [facility]-Physical Therapy Start: 07-22-2022 End: 07-22-2022 Emergency department patient visit [facility]-Emergency Department Start: 07-17-2022 End: 07-17-2022 ambulatory [facility] Work Phone: Start: 07-17-2022 End: 07-17-2022 Discharged Recurring [facility]-Occupational Therapy Start: 07-17-2022 Registered Recurring [facility]-Occupational Therapy Start: 07-09-2022 End: 07-09-2022 ambulatory [facility] Work Phone: Start: 07-09-2022 End: 07-09-2022 Patient encounter procedure [facility]-Laboratory Start: 07-08-2022 Letter encounter Raymon nenita Start: 04-07-[address] Anupama Bains Work Phone: [facility]-Occupational Therapy Start: 03-31-2022 End: 03-31-[address] Evelia Bains Work Phone: [facility]-Laboratory Start: 03-12-2022 End: 03-12-2022 Ot evaluation Janna Wheatley PA-C Work Phone: [facility] Work Phone: Start: 01-16-[address] Anupama Bains Work Phone: [facility]-Physical Therapy Start: 01-15-2022 End: 01-15-[address] Evelia Bains Work Phone: [facility] Start: 01-13-2022 Non-patient / Non-visit Dr. Evelia Bains Work Phone: [facility] Start: 01-13-2022 End: 01-13-[address] Evelia Bains Work Phone: [facility]-Pulmonary Services/Neurology Start: 01-06-2022 End: 01-06-[address] Evelia Bains Work Phone: [facility]-Radiology, [place] Start: 10-21-2018 End: 10-26-2018 Patient encounter procedure CORINNE BUSTAMANTE [facility] Start: 10-18-2018 End: 10-18-2018 Patient encounter procedure GRZEGORZ CADE [facility] Start: 10-06-2018 End: 10-15-2018 Patient encounter procedure ROSELINE ROOT [facility] Start: 08-09-2018 End: 08-09-2018 Patient encounter procedure KATALINA JONES [facility] Start: 08-05-2018 End: 08-06-2018 Patient encounter procedure KATALINA JONES [facility] Procedures Date Procedure Procedure Detail Performing Clinician Start: 06-12-[address] Evelia Bains MD Work Phone: Start: 01-28-2024 Plain x-ray of pelvi s and lower extremity Dr. Evelia Bains Work Phone: Start: 11-17-2022 MRI of lumbar spine Start: 10-17-2022 MRI of joint of lowe r extremity Start: 03-12-2022 End: 03-12-2022 BP scrn no perf at interval Janna Wheatley PA-C Work Phone: Start: 03-12-2022 End: 03-12-2022 Calc BMI out nrm teodoro nof/u Janna Wheatley PA-C Work Phone: Start: 03-12-2022 End: 03-12-2022 Current tobacco non-user cad cap copd pv dm Janna Wheatley PA-C Work Phone: Start: 03-12-2022 End: 03-12-2022 Docd contact that fx existed & pt tsted/txd op Janna Wheatley PA-C Work Phone: Start: 03-12-2022 End: 03-12-2022 Docrev cur meds by víctor Wheatley PA-C Work Phone: Start: 03-12-2022 End: 03-12-2022 EWHO rigid w/o jnts CF Janna Michaudr PA -C Work Phone: Start: 03-12-2022 End: 03-12-2022 Osteoarthritis symptoms&funcjal status asses Janna Michaudr PA-C Work Phone: Start: 03-12-2022 End: 03-12-2022 Pain doc pos and plan Janna Avilez Work Phone: Start: 03-12-2022 End: 03-12-2022 Patient encounter procedure Janna Wheatley PA-C Work Phone: Start: 01-31-2022 End: 02-01-2022 BP scrn no perf at interval Trini Campuzano MD Work Phone: Start: 01-31-2022 End: 02-01-2022 Calc BMI out nrm teodoro nof/u Trini Campuzano MD Work Phone: Start: 01-31-2022 End: 02-01-2022 Current tobacco non-user cad cap copd pv dm Trini Campuzano MD Work Phone: Start: 01-31-2022 End: 02-01-2022 Docd contact that fx existed & pt tsted/txd op Trini Campuzano MD Work Phone: Start: 01-31-2022 End: 02-01-2022 Docrev cur meds by víctor Campuzano MD Work Phone: Start: 01-31-2022 End: 02-01-2022 Pain doc pos and plan Trini Campuzano MD Work Phone: Start: 01-31-2022 End: 02-01-2022 Patient encounter procedure Trini Campuzano MD Work Phone: Start: 01-06-2022 Plain x-ray of wrist Dr Yvon Bains Work Phone: Start: 05-03-2015 End: 05-06-2015 Documentation of current medications Omi Grider Work Phone: Start: 05-03-2015 End: 05-04-2015 Smoking cessation education Omi Grider Work Phone: Start: 04-05-2015 End: 04-10-2015 Arthrocentesis aspir&/inj major jt/bursa w/o us María Hurd Work Phone: Start: 04-05-2015 End: 05-03-2015 Documentation of current medications Omi Grider Work Phone: Start: 04-05-2015 End: 04-08-2015 Smoking cessation education Omi Grider Work Phone: Start: 03-29-2015 End: 04-04-2015 Arthrocentesis aspir&/inj major jt/bursa w/o us Omi Grider Work Phone: NEGATED: Highlighted rowStart: 03-12-2022 End: 03-12-2022 Documentation of current medications Cee Almazan RN NEGATED: Highlighted rowStart: 01-31-2022 End: 01-31-2022 Documentation of current medications Promise Vallejo LPN Plan of Treatment Date Care Activity Detail Author Start: 06-23-2027 Tetanus vaccination Tetanus (Td or Tdap) [facility] Start: 06-12-2025 Colonoscopy flx dx w/collj spec when pfrmd DIAGNOSTIC COLONOSCOPY [facility] Start: 06-12-2025 Patient discharge [facility] Start: 01-28-2024 Patient referral [facility] Work Phone: Start: 07-24-2023 COVID-19 Vaccine ( season) COVID-19 Vaccine ( season) [facility] Start: 08-23-2022 Influenza vaccination Influenza Vaccine (#1) [facility] Start: 03-12-2022 End: 03-12-2022 Patient encounter procedure Appointment [facility] Work Phone: Start: 03-12-2022 End: 03-12-2022 Radex forearm 2 views XR FOREARM 2 VWS-LT [facility] Work Phone: Start: 02-27-2022 End: 02-27-2022 Patient encounter procedure Appointment [facility] Work Phone: Start: 01-31-2022 End: 01-31-2022 Mri any jt upper extremity w/o contrast matrl MRI left wrist without contrast [facility] Work Phone: Start: 01-20-2022 COVID-19 Vaccine (3 - Booster for Emily series) COVID-19 Vaccine (3 - Booster for Emily series) [facility] Start: 11-14-2021 COVID-19 Vaccine (3 - Booster for Emily series) COVID-19 Vaccine (3 - Booster for Emily series) [facility] Start: 10-22-2017 End: 10-22-2017 Appointment Appointment [facility] Work Phone: Start: 2017 Measurement of occult blood in single stool specimen FIT [facility] Start: 2017 Screening for malignant neoplasm of colon CRC Screening [facility] Start: 2017 Shingles (RZV) Vaccine (1 of 2) Shingles (RZV) Vaccine (1 of 2) [facility] Start: 06-16-2016 End: 06-16-2016 Radex hand minimum 3 views X-Ray, Hand [facility] Work Phone: Start: 05-30-2015 End: 05-30-2015 Physical Therapy General Physical Therapy [facility], [address] [place] [address], [address] [facility] Work Phone: Start: 05-03-2015 End: 05-03-2015 Mri any jt upper extremity w/o contrast matrl MRI Joint Upper Extremity [facility] Work Phone: Start: 03-29-2015 End: 03-29-2015 Radex shoulder complete minimum 2 views X-Ray, Shoulder [facility] Work Phone: Start: 06-08-2014 End: 06-08-2014 Radex hand minimum 3 views X-Ray, Hand [facility] Work Phone: Start: 2012 Screening for malignant neoplasm of colon [facility] Start: 2002 Lipid panel Cholesterol [facility] Start: 1986 Hepatitis A (HAV) Vaccine (optional start 19+ years) Hepatitis A (HAV) Vaccine (optional start 19+ years) [facility] Start: 1985 Hepatitis C screening Hepatitis C Antibody [facility] Start: 1982 HIV screening HIV Test [facility] Start: 1967 Hepatitis B vaccination Hepatitis B (HBV) Vaccine (1 of 3 - 3-dose series) [facility] Start: 1967 Screening for malignant neoplasm of colon Colonoscopy [facility] Start: 1967 Thyroid stimulating hormone measurement TSH [facility] Patient Education [facility] Work Phone: Patient referral [facility] Work Phone: XR Femur 2 Views [facility] Immunizations Immunization Date Immunization Notes Care Provider Dilip mcgill 09-19-2021 Moderna (12+ yrs) SARS-COV-2 (COVID-19) vaccine, mRNA, spike protein, LNP, pres. free, 100 mcg/0.5 mL (primary) or 50 mcg/0.25 mL (booster) (YYE=039) [facility] 08-28-2018 influenza, injectabl e, quadrivalent, preservative free [facility] 08-28-2018 influenza, seasonal, injectable Dr. Evelia Bains Work Phone: [facility] 08-28-2018 influenza, seasonal, injectable, preservative free [facility] 08-28-2018 influenza virus vaccine, unspecified formulation [facility] 10-27-2017 influenza, injectabl e, quadrivalent, contains preservative [facility] 09-24-2017 influenza, injectabl e, quadrivalent, preservative free [facility] 09-24-2017 influenza, seasonal, injectable Dr. Evelia Bains Work Phone: [facility] 06-23-2017 tetanus toxoid, reduced diphtheria toxoid, and acellular pertussis vaccine, adsorbed [facility] 07-18-2016 tetanus toxoid, reduced diphtheria toxoid, and acellular pertussis vaccine, adsorbed Dr. Evelia Bains Work Phone: [facility] Payers Date Payer Category Payer Self-pay [id number] 2021 Unknown [id number] 2016 Unknown ANTHEM - BLUE CR OSS BLUE CROSS/HMO,PPO,POS [id number] 2016-Present [address] [place] [address] PPO [id number] 2012 Unknown [id number] Unknown [id number] Unknown [id number] Unknown [id number] Unknown [id number] Unknown [id number] Unknown [id number] Unknown [id number] Unknown [id number] Unknown [id number] Social History Date Type Detail Facility Start: 01-15-2022 End: 01-28-2024 Assertion Unknown if ever smoked [facility] Work Phone: Start: 06-05-2018 None [facility] Start: 06-05-2018 Spouse/ Signif icant Other [facility] Start: 06-06-2018 Non-smoker [facility] Start: 1965 Sex Assigned At Male W [facility] Start: 10-26-2018 End: 07-12-2025 Tobacco smoking status NHIS Never smoked tobacco [facility] Start: 10-26-2018 Tobacco use and exposure Smokeless tobacco non-user [facility] Start: 11-26-2018 Alcohol intake Current drinke r of alcohol (finding) [facility] Start: 11-02-2018 History SDOH Alcohol Comment occ [facility] Start: 1965 Sex Assigned At Not on file [facility] Start: 11-30-2021 History of Social function [facility] Start: 11-30-2021 Tobacco use panel [facility] Start: 02-06-2025 Sex Male (finding) [facility] NEGATED: Highlighted rowStart: 01-31-2022 End: 01-31-2022 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 [facility] Work Phone: Medical Equipment Procedure Code Equipment Code Equipment Origin al Text Equipment Identifier Dates SUTURE,LIGA CLIP SM LT-100 FDA Start: 08-27-2018 SUTURE,LIGA CLIP SM LT-100 FDA Start: 08-27-2018 SUTURE,LIGA CLIP SM LT-100 FDA Start: 08-27-2018 SUTURE,LIGA CLIP SM LT-100 FDA Start: 08-27-2018 SUTURE,LIGA CLIP SM LT-100 FDA Start: 08-27-2018 SUTURE,LIGA CLIP SM LT-100 FDA Start: 08-27-2018 SUTURE,LIGA CLIP SM LT-100 FDA Start: 08-27-2018 SUTURE,LIGA CLIP SM LT-100 FDA Start: 08-27-2018 SUTURE,LIGA CLIP SM LT-100 FDA Start: 08-27-2018 SUTURE,LIGA CLIP SM LT-100 FDA Start: 08-27-2018 SUTURE,LIGA CLIP SM LT-100 FDA Start: 08-27-2018 SUTURE,LIGA CLIP SM LT-100 FDA Start: 08-27-2018 SUTURE,LIGA CLIP SM LT-100 FDA Start: 08-27-2018 SUTURE,LIGA CLIP SM LT-100 FDA Start: 08-27-2018 SUTURE,LIGA CLIP SM LT-100 FDA Start: 08-27-2018 SUTURE,LIGA CLIP SM LT-100 FDA Start: 08-27-2018 SUTURE,LIGA CLIP SM LT-100 FDA Start: 08-27-2018 SUTURE,LIGA CLIP SM LT-100 FDA Start: 08-27-2018 SUTURE,LIGA CLIP SM LT-100 FDA Start: 08-27-2018 SUTURE,LIGA CLIP SM LT-100 FDA Start: 08-27-2018 SUTURE,LIGA CLIP SM LT-100 FDA Start: 08-27-2018 SUTURE,LIGA CLIP SM LT-100 FDA Start: 08-27-2018 SUTURE,LIGA CLIP SM LT-100 FDA Start: 08-27-2018 SUTURE,LIGA CLIP SM LT-100 FDA Start: 08-27-2018 SUTURE,LIGA CLIP SM LT-100 FDA Start: 08-27-2018 SUTURE,LIGA CLIP SM LT-100 FDA Start: 08-27-2018 SUTURE,LIGA CLIP SM LT-100 FDA Start: 08-27-2018 SUTURE,LIGA CLIP SM LT-100 FDA Start: 08-27-2018 SUTURE,LIGA CLIP SM LT-100 FDA Start: 08-27-2018 SUTURE,LIGA CLIP SM LT-100 FDA Start: 08-27-2018 SUTURE,LIGA CLIP SM LT-100 FDA Start: 08-27-2018 SUTURE,LIGA CLIP SM LT-100 FDA Start: 08-27-2018 SUTURE,LIGA CLIP SM LT-100 FDA Start: 08-27-2018 SUTURE,LIGA CLIP SM LT-100 FDA Start: 08-27-2018 SUTURE,LIGA CLIP SM LT-100 FDA Start: 08-27-2018 SUTURE,LIGA CLIP SM LT-100 FDA Start: 08-27-2018 SUTURE,LIGA CLIP SM LT-100 FDA Start: 08-27-2018 SUTURE,LIGA CLIP SM LT-100 FDA Start: 08-27-2018 SUTURE,LIGA CLIP SM LT-100 FDA Start: 08-27-2018 SUTURE,LIGA CLIP SM LT-100 FDA Start: 08-27-2018 SUTURE,LIGA CLIP SM LT-100 FDA Start: 08-27-2018 SUTURE,LIGA CLIP SM LT-100 FDA Start: 08-27-2018 SUTURE,LIGA CLIP SM LT-100 FDA Start: 08-27-2018 SUTURE,LIGA CLIP SM LT-100 FDA Start: 08-27-2018 SUTURE,LIGA CLIP SM LT-100 FDA Start: 08-27-2018 SUTURE,LIGA CLIP SM LT-100 FDA Start: 08-27-2018 SUTURE,LIGA CLIP SM LT-100 FDA Start: 08-27-2018 SUTURE,LIGA CLIP SM LT-100 FDA Start: 08-27-2018 SUTURE,LIGA CLIP SM LT-100 FDA Start: 08-27-2018 SUTURE,LIGA CLIP SM LT-100 FDA Start: 08-27-2018 SUTURE,LIGA CLIP SM LT-100 FDA Start: 08-27-2018 SUTURE,LIGA CLIP SM LT-100 FDA Start: 08-27-2018 SUTURE,LIGA CLIP SM LT-100 FDA Start: 08-27-2018 SUTURE,LIGA CLIP SM LT-100 FDA Start: 08-27-2018 SUTURE,LIGA CLIP SM LT-100 FDA Start: 08-27-2018 SUTURE,LIGA CLIP SM LT-100 FDA Start: 08-27-2018 SUTURE,LIGA CLIP SM LT-100 FDA Start: 08-27-2018 SUTURE,LIGA CLIP SM LT-100 FDA Start: 08-27-2018 SUTURE,LIGA CLIP SM LT-100 FDA Start: 08-27-2018 SUTURE,LIGA CLIP SM LT-100 FDA Start: 08-27-2018 SUTURE,LIGA CLIP SM LT-100 FDA Start: 08-27-2018 SUTURE,LIGA CLIP SM LT-100 FDA Start: 08-27-2018 SUTURE,LIGA CLIP SM LT-100 FDA Start: 08-27-2018 SUTURE,LIGA CLIP SM LT-100 FDA Start: 08-27-2018 SUTURE,LIGA CLIP SM LT-100 FDA Start: 08-27-2018 SUTURE,LIGA CLIP SM LT-100 FDA Start: 08-27-2018 SUTURE,LIGA CLIP SM LT-100 FDA Start: 08-27-2018 SUTURE,LIGA CLIP SM LT-100 FDA Start: 08-27-2018 Goals Date Patient Goal Desired Activity /State Mental Status Date Assessment Result Facility 06-12-2025 Cognitive function Voice/Name;Touch/Emeterio helton [facility] Work Phone: Clinical Notes 02-01-2022 to 06-12-2025 Note Date & Type Note Facility 06-12-2025 History and physi rosi note Note Date/Time June 12, 2025 10:29am [facility] Medical Records Department [address] [place] [address] History & Physical Exam 06/12/25 0950 MR#: [id number] Acct: [id number] Name: NICKIE BROWNE Rep #:[id number] : 1965 59 From: Francie Cedeño MD PCP: Dr. Evelia Bains MD Status:[facility] Location: [place] [address] HPI - General General Date of Service: 06/12/25 HPI Narrative NICKIE BROWNE, is a 59 M who presents for screening colonoscopy. Patient last colonoscopy was 11/2017 had a fair prep recommended follow-up in 7 years for repeat. Patient denies any family history of colon cancer. Patient has bowel movement daily denies any blood. Patient denies any chronic abdominal pain/nausea/vomiting/reflux. [facility] Medical History (Updated 06/09/25 @ 08:46 by Amita Locke) PONV (postoperative nausea and vomiting) Loss of hearing Wears glasses Alcohol use Thyroid disease Rheumatoid arthritis Gastric reflux Non-smoker Cardiology follow-up encounter History of echocardiogram History of fracture of arm TFCC (triangular fibrocartilage complex) injury Hypertension Osteoarthritis Chronic back pain Home Medications ?Medication ?Instructions ?Recorded ?Last Taken ?Type hydroxychloroquine 200 mg tablet 400 mg PO QHS RA 08/0906/04/18 History leflunomide 20 mg tablet 20 mg PO QHS RA 03/01/17 History levothyroxine 125 mcg tablet 150 mcg PO DAILY@0600 06/12/25 History omeprazole 20 mg capsule,delayed 20 mg PO DAILY GERD 1 01/11/18 Unknown History release celecoxib 100 mg capsule (Celebrex) 100 mg PO BID 12/24 03/14 Unknown History amitriptyline 100 mg tablet 100 mg PO QHS 07/16/23 Unk nown History cyclobenzaprine 5 mg tablet 5 mg PO QHS 07/16/23 Unkno wn History metoprolol succinate 100 mg 100 mg PO DAILY 07/16/23 0 06/12/25 History tablet,extended release 24 hr Allergy/AdvReac Type Severity Reaction Status Date / Time No Known Allergies Allergy Verified 06/12/25 09:19 Family History Father Myocardial infarction Hypertension CAD (coronary artery disease) PCI-Stent x 2 Unknown Arthritis High cholesterol Thyroid disorder Skin cancer Surgical History (Updated 06/09/25 @ 08:46 by Amita Locke) Hx of colonoscopy History of thumb surgery History of carpal tunnel surgery of right wrist History of lumbar surgery History of thyroidectomy History of herniorrhaphy Social History Smoking Status: Never smoker alcohol intake: never substance use type: does not use Past Medical/Surgical History Planned Operation Planned Operative Procedure(s): CSCOPE OA S.O.S: No Previous Hospitalizations/Surgeries HX Hospitalizations: No HX of Surgeries: COLONOSCOPY HERNIA REAPIR Any Problems With Anesthesia: Yes (N,V) You/Your Family Experience Fever (Hyperthermia) With Anes: No Cholinesterase deficiency: No Cardiovascular Hx Chest Pain within Last 2 months: No Hx of Irregular Heartbeat and/or Afib: No Hx Heart Attack: No Hx Congestive Heart Failure: No Hx Rheumatic Fever: No Hx Hypertension: Yes (CONTROLLED WITH MED) Hx Internal Defibrillator: No Hx Pacemaker: No Hx Cardiac Catheterization: No Hx Cardiac Surgery/Stents/Etc.: No Hx Stress Test: No (ECHO 2018) Hx Pain in Legs when Walking/Leg Cramps: No Respiratory Chronic Cough: No HX of Shortness of Breath: No Hoarseness: No Hx Chronic Obstructive Pulmonary Disease (COPD): No Hx Asthma: No Hx Emphysema: No Hx Sleep Apnea: No Hx Respiratory Tract Infection/Cold (presently): No Do You Snore Loudly (louder than talking or can be heard): No Do You Often Feel Tired/ Fatigued/ Sleepy Dring Daytime?: No Has Anyone Observed You Stop Breathing During Sleep?: No Result (for STOP score): Negative Hx Smoking: No Smoking Status: Never smoker Gastrointestinal Controlled With Meds: Yes (OMEPRAZOLE) Hx Gastrointestinal Disorders: No Hx Gastrointestinal Bleed: No Hx Ulcer: No Hx Hiatal Hernia: No Difficulty Chewing/Swallowing: No Special diet followed at home: No Hx Unplanned Weight Loss of 20#: No HX Unplanned Weight Gain of 20#: No Neurological Hx Seizures: No HX Syncope/Blackout Spells/Unconsciousness: No Hx Transient Ischemic Attacks (TIA): No Hx Multiple Sclerosis: No Hx Parkinson's Disease: No Hx Head/Neck Injury: No Hx Headaches: No Hx Back Injury/Pain: Yes Recent Onset of Speech Difficulty: No Restless Legs: No Does patient have nerve stimulator: No Blood Disorder Hx Leukemia: No Bleeding Tendencies: No Hx Deep Vein Thrombosis: No Hx High Cholesterol: No Blood Transmitted Disease: No Hx Hepatitis: No Hx Cirrhosis: No Hx Anemia: No Hx Blood Disorders: No Reproduction : No Genitourinary Hx Renal Disease: No Hx Dialysis: No Musculoskeletal Hx Arthritis: Yes Hx Rheumatoid Arthritis: No (PATIENT DENIES RA) Hx Gout: No Recent Onset of an Orthopedic Problem: No Endocrine Hx Diabetes: No Thyroid Disease: Yes (THROIDECTOMY) Hx Steroid Therapy: Yes (PRN PREDNISONE) Psycho/Social Hx Substance Use: No Hx Alcohol Use: Yes (RARELY) Hx Anxiety: No Hx Depression: No Mental Illness: No Hx Dementia: No Miscellaneous Hx Cancer: No Recent Exposure to Contagious Disease: No Hx of C-Diff: No Any Loose Teeth: No Allergies No Known Allergies Allergy (Verified 06/12/25 09:19) Maternal: Family History Father Myocardial infarction Hypertension CAD (coronary artery disease) Unknown Arthritis High cholesterol Thyroid disorder Skin cancer No pertinent history Paternal: Family History Father Myocardial infarction Hypertension CAD (coronary artery disease) Unknown Arthritis High cholesterol Thyroid disorder Skin cancer Heart Disease Discharge Is Pt Admitted From a Detention, or a Penitentiary: No After D/C, Where Do you Plan to Go: Return Home Vital Signs Vital Signs Vital Signs: 06/12/25 09:19 06/12/25 09:19 06/12/25 09:35 Temperature 97.3 F L 97.3 F L Temperature Source Temporal Pulse Rate 102 H 102 H Respiratory Rate 16 16 Respiratory Pattern Normal Blood Pressure 154/94 H 154/94 H Blood Pressure Mean 114 Blood Pressure Source Monitor Blood Pressure Position Semi-Fowlers Blood Pressure Location Left Arm Pulse Ox 97 97 Oxygen Delivery Method Room Air Room Air Weight Weight: 166 lb 10.711 oz Body Mass Index (BMI) 24.6 Physical Exam Const alert, oriented x3 and no apparent distress HEENT normocephalic and head/scalp atraumatic Resp normal respiratory effort Cardio regular rate GI soft to palpation and non-tender; Negative for non-distended Palpation: Negative for guarding Extremity no clubbing, cyanosis or edema Skin no rashes or lesions noted Neuro CN's II-XII intact bilaterally Psych mental status grossly normal Assessment & Plan Assessment/Plan (1) Encounter for screening for malignant neoplasm of colon: Surgery Risks - Colonoscopy I discussed with the patient the risks of the procedure: Yes Risks Include but are not Limited To: Risks include but are not limited to: Bleeding, perforation requiring further surgery, inability to complete colonoscopy requiring barium enema. 06/12/25 1029 <Electronically signed by Francie Cedeño MD> Cosigner Signature (if applicable): CC: Dr. Evelia Bains MD; Dr. Francie Cedeño MD~ Signed [facility] Work Phone: 1(882) 121-114207-21-2025 Consult note Author Aracelijessica Quintana [facility] Note Date/Time June 12, 2025 9:35 am [facility] Medical Records Department [address] [place] [address] Pre-Anesthesia Evaluation 06/12/25 0932 MR#: [id number] Acct: [id number] Name: NICKIE BROWNE Rep #:[id number] : 1965 59 From: Araceli li CRNA PCP: Dr. Evelia Bains MD Status:[facility] Race: C Location: [place] [address] ASA Classification* ASA Classification ASA Classification: 3 Assessment & Plan Anesthesia* Anesthesia Assessment Anesthesia Assessment: Discussed sedation and/or anesthesia options, risks, benefits, and alternatives with patient/parents/legal guardian/POA. Questions invited. The patient/parents/legal guardian/POA seems to understand and agrees to proceedwith anesthesia plan. Reviewed the physical assessment, medical history, allergy history and patient home medications list prior to surgery/procedure/anesthetic and documented any changes. Performed airway and anesthesia risk assessments. Anesthesia Type Anesthesia Type: MAC History Source History Obtained from:: Patient and Chart Anesthesia Focused Assessment* Temperature: 97.3 F Pulse Rate: 102 Blood Pressure: 154/94 Respiratory Rate: 16 Pulse Ox: 97 Oxygen Delivery Method: Room Air Airway Assessment Mouth opens: >3 cm Mallampati Score: I Teeth Condition: Intact Neck Range of motion (ROM): Full ROM Labs Anesthesia Preop lab: CBC WBC 9.1 K/mm3 (4.4-11.0) 04/06/25 11:46 04/06/25 RBC 4.74 M/mm3 (4.6-6.2) 04/06/25 11:46 04/06/25 Hgb 13.9 g/dL (13.0-16.5) 04/06/25 11:46 04/06/25 Hct 42.4 % (40-54) 04/06/25 11:46 04/06/25 Plt Count 222 K/mm3 (150-450) 04/06/25 11:46 04/06/25 CHEMISTRY Potassium 3.2 mmol/L (3.5-5.1) L 11/10/18 23:50 11/10/18 Sodium 139 mmol/L (136-145) 11/10/18 23:50 11/10/18 Magnesium 2.0 mg/dL (1.6-2.6) 08/31/18 11:56 08/31/18 BUN 18 mg/dL (7-18) 11/10/18 23:50 11/10/18 Creatinine 0.93 mg/dL (0.70-1.20) 04/06/25 11:46 04/06/25 Glucose 104 mg/dL (74-106) 11/10/18 23:50 11/10/18 POC Glucose 132 mg/dL (70-110) H 08/27/18 10:28 08/27/18 TSH 0.694 uIU/mL (0.358-3.740) 10/01/24 09:34 11/08/16 COAG Pre-Assessment Diagnosis/Proposed Procedure Planned Operative Procedure(s): CSCOPE OA Anesthesia History Anesthesia History - configuration management analyst: Anesthesia History - configuration management analyst Hx Hospitalization No 06/09/25 08:38 Any Problems With Anesthesia Yes: N,V 06/09/25 08:38 Cholinesterase deficiency No 06/09/25 08:38 You/Your Family Experience No 06/09/25 08:38 fever (hyperthermia) with Relationship Recent Exposure to Contagious No 06/12/25 09:19 Disease Does patient have nerve No 06/09/25 08:38 stimulator Patient instructed to have device shut off --Does patient have Pacemaker No 06/12/25 09:19 or ICD? When Was Last Pacemaker Check QUESTION #4 FULL TEXT: You/Your Family Experience fever (hyperthermia) with Anesthesia Last Oral Intake Last Oral intake: Last Oral Intake NPO since 06:30 06/12/25 09:19 Meds taken in AM with sips of Yes 06/12/25 09:19 water? Meds patient instructed to see medlist 06/12/25 09:19 take am of surgery PONV PONV - configuration management analyst: PONV - configuration management analyst Female No 06/09/25 08:38 HX of Motion Sickness No 06/09/25 08:38 HX of N/V After Surgery No 06/09/25 08:38 Non-Smoker Yes 06/09/25 08:38 Duration of Surgery greater No 06/09/25 08:38 than 60 minutes Number of Risk Factors 1 06/09/25 08:38 PONV Score Low Risk 06/09/25 08:38 Height & Weight Height & Weight: Anesthesia: Height & Weight Height 5 ft 9 in 06/12/25 09:19 Weight: 75.6 kg 06/12/25 09:19 Body Mass Index (BMI) 24.6 06/12/25 09:19 Respiratory Assessment Respiratory Assessment - configuration management analyst: Respiratory Tract Infection Hx - configuration management analyst Hx Respiratory Tract Infection No 06/09/25 08:38 STOP Sleep Apnea STOP Sleep Apnea - configuration management analyst: STOP Sleep Apnea - configuration management analyst Hx Hypertension Yes: CONTROLLED WITH MED 06/09/25 08:38 Hx Sleep Apnea No 06/09/25 08:38 CPAP BIPAP Do you snore loudly (louder No 06/09/25 08:38 than talking or can be heard Do you often feel tired/ No 06/09/25 08:38 fatigued/ sleepy during daytime? Has anyone observed you stop No 06/09/25 08:38 breathing during sleep? STOP Results Negative 06/09/25 08:38 QUESTION #5 FULL TEXT : Do you snore loudly (louder than talking or can be heard through closed doors)? 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 Specify any problems Hx of Preganancy in last 3 N/A 06/09/25 08:38 Months Nurse Filling Out Transfusion DSCHRIBER 06/09/25 08:38 & Questions: Date: 06/09/25 06/09/25 08:38 Time: 08:40 06/09/25 08:38 Patient unable to answer at this time (ie. 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 Hx Now No 06/09/25 08:38 Gestational Age (in weeks): EDC: Hx Hx Para Hx Section SAB No 06/09/25 08:38 Active Medications Active Medications: Current Medications Generic Name Dose Route Start Last Admin Trade Name Freq PRN Reason Stop Dose Admin Lactated Ringer's 1,000 mls @ 15 mls/hr 06/12/25 09:15 06/12/25 09:26 IV 15 mls/hr .Q48H CHATO Administration PFSH Medical History (Updated 06/09/25 @ 08:46 by Amita Locke) PONV (postoperative nausea and vomiting) Loss of hearing Wears glasses Alcohol use Thyroid disease Rheumatoid arthritis Gastric reflux Non-smoker Cardiology follow-up encounter History of echocardiogram History of fracture of arm TFCC (triangular fibrocartilage complex) injury Hypertension Osteoarthritis Chronic back pain Home Medications ?Medication ?Instructions ?Recorded ?Last Taken ?Type hydroxychloroquine 200 mg tablet 400 mg PO QHS RA 08/0906/04/18 History leflunomide 20 mg tablet 20 mg PO QHS RA 03/01/17 History levothyroxine 125 mcg tablet 150 mcg PO DAILY@0600 06/12/25 History omeprazole 20 mg capsule,delayed 20 mg PO DAILY GERD 1 01/11/18 Unknown History release celecoxib 100 mg capsule (Celebrex) 100 mg PO BID 12/24 03/14 Unknown History amitriptyline 100 mg tablet 100 mg PO QHS 07/16/23 Unk nown History cyclobenzaprine 5 mg tablet 5 mg PO QHS 07/16/23 Unkno wn History metoprolol succinate 100 mg 100 mg PO DAILY 07/16/23 0 06/12/25 History tablet,extended release 24 hr Allergy/AdvReac Type Severity Reaction Status Date / Time No Known Allergies Allergy Verified 06/12/25 09:19 Family History Father Myocardial infarction Hypertension CAD (coronary artery disease) PCI-Stent x 2 Unknown Arthritis High cholesterol Thyroid disorder Skin cancer Surgical History (Updated 06/09/25 @ 08:46 by Amita Locke) Hx of colonoscopy History of thumb surgery History of carpal tunnel surgery of right wrist History of lumbar surgery History of thyroidectomy History of herniorrhaphy Social History Smoking Status: Never smoker alcohol intake: never substance use type: does not use Review of Systems (Anesthesia) ROS Narrative System reviewed and no additional complaints, except as documented. 06/12/25 0935 <Electronically signed by Araceli solorzano CRNA> Date _ Araceli Quintana CRNA Cosigner Signature: Date CC: ~ Signed [facility] Work Phone: 1(304) 988-867407-21-2025 Consult note [facility] Medical Records Department [address] [place] [address] Anesthesia Postop Eval I 06/12/25 1106 MR#: [id number] Acct: [id number] Name: NICKIE BROWNE Rep #:[id number] : 1965 59 From: Anshul Singh PCP: Dr. Evelia Bains MD Status:[facility] Y Race: C Location: [place] [address] Anesthesia: Postop Eval I Current Vital Signs Temperature: 97.9 F Pulse Rate: 77 Blood Pressure: 133/92 Respiratory Rate: 18 Pulse Ox: 98 Assessment Airway patent: Yes Spontaneous unlabored respirations: Yes nausea: No Vomiting: No Anesthesia Complication: No Fluid Hydration Crystalloid volume administer (ml): 500 Total IV fluid infused: 500 Progress Note Anesthesia document: Postop Eval 1 completed: Yes 06/12/25 1107 > Date _ Anshul Khan Signature: Date CC: ~ Signed [facility]07-21-2025 Evaluation note* Diagnosis Onset Date Resolution Status Admit Date Encounter for screening for malignant neoplasm of colon acute June 12, 2025 9:03am [facility] [facility] Work Phone: 1(386) 651-466707-21-2025 Evaluation note* Diagnosis Onset Date Resolution Status Admit Date Encounter for screening for malignant neoplasm of colon acute June 12, 2025 9:03am Strain of right quadriceps acute July 14, 2025 7:48am [facility] Work Phone: 1(260) 642-161207-21-2025 Procedure note [facility] Medical Records Department [address] [place] [id number] Colonoscopy Report MR#: [id number] Acct: [id number] Name: NICKIE BROWNE Rep #:[id number] : 1965 59 From: Francie Cedeño MD PCP: Dr. Evelia Bains MD Status:[facility] Patient Name: Nickie Browne Procedure Date: 06/12/2025 10:32 AM Date of : 1965 Age: 59 Procedure: Colonoscopy Indications: Screening for colorectal malignant neoplasm Providers: Francie Cedeño MD Referring MD: Evelia Bains Medicines: Monitored Anesthesia Care Patient Profile: This is a 59 year old male. Last Colonoscopy: November 2017. Complications: No immediate complications. Procedure: Pre-Anesthesia Assessment: - Prior to the procedure, a History and Physical was performed, and patient medications and allergies were reviewed. The patient's tolerance of previous anesthesia was also reviewed. The risks and benefits of the procedure and the sedation options and risks were discussed with the patient. All questions were answered, and informed consent was obtained. Prior Anticoagulants: The patient has taken no anticoagulant or antiplatelet agents. ASA Grade Assessment: Per anesthesia. After reviewing the risks and benefits, the patient was deemed in satisfactory condition to undergo the procedure. After I obtained informed consent, the scope was passed under direct vision. Throughout the procedure, the patient's blood pressure, pulse, and oxygen saturations were monitored continuously. The pediatric colonoscope was introduced through the anus and advanced to the cecum, identified by the appendiceal orifice, ileocecal valve and palpation. The colonoscopy was performed without difficulty. The patient tolerated the procedure well. The quality of the bowel preparation was good. Scope In: 10:43:16 AM Scope Withdrawal Time 0 hours 6 minutes 19 seconds Scope Out: 10:56:13 AM Total Procedure Duration Time 0 hours 12 minutes 57 seconds Findings: The perianal and digital rectal examinations were normal. Non-bleeding internal hemorrhoids were found. The hemorrhoids were Grade I (internal hemorrhoids that do not prolapse). The entire examined colon appeared normal. Impression: - Non-bleeding internal hemorrhoids. - The entire examined colon is normal. - No specimens collected. Recommendation: - Discharge patient to home. - Resume previous diet. - Continue present medications. - Repeat colonoscopy in 10 years for screening purposes. Procedure Code(s): --- Professional --- G0121, PT, Colorectal cancer screening; colonoscopy on individual not meeting criteria for high risk Diagnosis Code(s): --- Professional --- Z12.11, Encounter for screening for malignant neoplasm of colon K64.0, First degree hemorrhoids CPT copyright 2021 [employer]. All rights reserved. The codes documented in this report are preliminary and upon counsellors review may be revised to meet current compliance requirements. MD Francie Bajwa MD 06/12/2025 11:01:31 AM This report has been signed electronically. Number of Addenda: 0 Note Initiated On: 06/12/2025 10:32 AM 06/12/25 110 Date _ Francie Cedeño MD Cosigner Signature: Date (if indicated) CC: Dr. Evelia Bains MD; Dr. Francie Cedeño MD ~ Date Dictated: 06/12/25 1032 Date Transcribed: Agitator Operator: TR Signed [facility]07-21-2025 Procedure note [facility] Medical Records Department [address] [place] [id number] Operative Report - CC Letter MR#: [id number] Acct: [id number] Name: NICKIE BROWNE Rep #:[id number] : 1965 59 From: Francie Cedeño MD PCP: Dr. Evelia Bains MD Status:[facility] 06/12/2025 Evelia Bains [address] [place] [address] Re : Colonoscopy procedure for Nickie Browne Dear Dr. Bains This procedure was performed on Thursday, June 12, 2025. My impressions and recommendations are as follows: Impressions : - Non-bleeding internal hemorrhoids. - The entire examined colon is normal. - No specimens collected. Recommendations : - Discharge patient to home. - Resume previous diet. - Continue present medications. - Repeat colonoscopy in 10 years for screening purposes. My findings are described in the full procedure note, which is enclosed. If I can be of further assistance, please feel free to contact me at Doctor phone number(s): , Work: . Sincerely, MD Francie Bajwa MD 06/12/2025 11:01:31 AM This report has been signed electronically. 06/12/25 1101 Date _ Francie Cedeño MD Cosigner Signature: Date (if indicated) CC: Dr. Evelia Bains MD; Dr. Francie Cedeño MD ~ Date Dictated: 06/12/25 1032 Date Transcribed: Agitator Operator: TR Signed [facility]07-21-2025 History and physical note [facility] Medical Records Department [address] [place] [address] History & Physical Exam 06/12/25 0950 MR#: [id number] Acct: [id number] Name: NICKIE BROWNE Rep #:[id number] : 1965 59 From: Francie Cedeño MD PCP: Dr. Evelia Bains MD Status:[facility] Location: [address] - General General Date of Service: 06/12/25 HPI Narrative NICKIE BROWNE, is a 59 M who presents for screening colonoscopy. Patient last colonoscopy was 11/2017 had a fair prep recommended follow-up in 7 years for repeat. Patient denies any family history of colon cancer. Patient has bowel movement daily denies any blood. Patient denies any chronic abdominal pain/nausea/vomiting/reflux. [facility] Medical History (Updated 06/09/25 @ 08:46 by Amita Locke) PONV (postoperative nausea and vomiting) Loss of hearing Wears glasses Alcohol use Thyroid disease Rheumatoid arthritis Gastric reflux Non-smoker Cardiology follow-up encounter History of echocardiogram History of fracture of arm TFCC (triangular fibrocartilage complex) injury Hypertension Osteoarthritis Chronic back pain Home Medications ?Medication ?Instructions ?Recorded ?Last Taken ?Type hydroxychloroquine 200 mg tablet 400 mg PO QHS RA 0408/0906/04/18 History leflunomide 20 mg tablet 20 mg PO QHS RA 03/01/17 History levothyroxine 125 mcg tablet 150 mcg PO DAILY@0600 06/12/25 History omeprazole 20 mg capsule,delayed 20 mg PO DAILY GERD 1 01/11/18 Unknown History release celecoxib 100 mg capsule (Celebrex) 100 mg PO BID 12/24 03/14 Unknown History amitriptyline 100 mg tablet 100 mg PO QHS 07/16/23 Unk nown History cyclobenzaprine 5 mg tablet 5 mg PO QHS 07/16/23 Unkno wn History metoprolol succinate 100 mg 100 mg PO DAILY 07/16/23 0 06/12/25 History tablet,extended release 24 hr Allergy/AdvReac Type Severity Reaction Status Date / Time No Known Allergies Allergy Verified 06/12/25 09:19 Family History Father Myocardial infarction Hypertension CAD (coronary artery disease) PCI-Stent x 2 Unknown Arthritis High cholesterol Thyroid disorder Skin cancer Surgical History (Updated 06/09/25 @ 08:46 by Amita Locke) Hx of colonoscopy History of thumb surgery History of carpal tunnel surgery of right wrist History of lumbar surgery History of thyroidectomy History of herniorrhaphy Social History Smoking Status: Never smoker alcohol intake: never substance use type: does not use Past Medical/Surgical History Planned Operation Planned Operative Procedure(s): CSCOPE OA S.O.S: No Previous Hospitalizations/Surgeries HX Hospitalizations: No HX of Surgeries: COLONOSCOPY HERNIA REAPIR Any Problems With Anesthesia: Yes (N,V) You/Your Family Experience Fever (Hyperthermia) With Anes: No Cholinesterase deficiency: No Cardiovascular Hx Chest Pain within Last 2 months: No Hx of Irregular Heartbeat and/or Afib: No Hx Heart Attack: No Hx Congestive Heart Failure: No Hx Rheumatic Fever: No Hx Hypertension: Yes (CONTROLLED WITH MED) Hx Internal Defibrillator: No Hx Pacemaker: No Hx Cardiac Catheterization: No Hx Cardiac Surgery/Stents/Etc.: No Hx Stress Test: No (ECHO 2018) Hx Pain in Legs when Walking/Leg Cramps: No Respiratory Chronic Cough: No HX of Shortness of Breath: No Hoarseness: No Hx Chronic Obstructive Pulmonary Disease (COPD): No Hx Asthma: No Hx Emphysema: No Hx Sleep Apnea: No Hx Respiratory Tract Infection/Cold (presently): No Do You Snore Loudly (louder than talking or can be heard): No Do You Often Feel Tired/ Fatigued/ Sleepy Dring Daytime?: No Has Anyone Observed You Stop Breathing During Sleep?: No Result (for STOP score): Negative Hx Smoking: No Smoking Status: Never smoker Gastrointestinal Controlled With Meds: Yes (OMEPRAZOLE) Hx Gastrointestinal Disorders: No Hx Gastrointestinal Bleed: No Hx Ulcer: No Hx Hiatal Hernia: No Difficulty Chewing/Swallowing: No Special diet followed at home: No Hx Unplanned Weight Loss of 20#: No HX Unplanned Weight Gain of 20#: No Neurological Hx Seizures: No HX Syncope/Blackout Spells/Unconsciousness: No Hx Transient Ischemic Attacks (TIA): No Hx Multiple Sclerosis: No Hx Parkinson's Disease: No Hx Head/Neck Injury: No Hx Headaches: No Hx Back Injury/Pain: Yes Recent Onset of Speech Difficulty: No Restless Legs: No Does patient have nerve stimulator: No Blood Disorder Hx Leukemia: No Bleeding Tendencies: No Hx Deep Vein Thrombosis: No Hx High Cholesterol: No Blood Transmitted Disease: No Hx Hepatitis: No Hx Cirrhosis: No Hx Anemia: No Hx Blood Disorders: No Reproduction : No Genitourinary Hx Renal Disease: No Hx Dialysis: No Musculoskeletal Hx Arthritis: Yes Hx Rheumatoid Arthritis: No (PATIENT DENIES RA) Hx Gout: No Recent Onset of an Orthopedic Problem: No Endocrine Hx Diabetes: No Thyroid Disease: Yes (THROIDECTOMY) Hx Steroid Therapy: Yes (PRN PREDNISONE) Psycho/Social Hx Substance Use: No Hx Alcohol Use: Yes (RARELY) Hx Anxiety: No Hx Depression: No Mental Illness: No Hx Dementia: No Miscellaneous Hx Cancer: No Recent Exposure to Contagious Disease: No Hx of C-Diff: No Any Loose Teeth: No Allergies No Known Allergies Allergy (Verified 06/12/25 09:19) Maternal: Family History Father Myocardial infarction Hypertension CAD (coronary artery disease) Unknown Arthritis High cholesterol Thyroid disorder Skin cancer No pertinent history Paternal: Family History Father Myocardial infarction Hypertension CAD (coronary artery disease) Unknown Arthritis High cholesterol Thyroid disorder Skin cancer Heart Disease Discharge Is Pt Admitted From a Detention, or a Penitentiary: No After D/C, Where Do you Plan to Go: Return Home Vital Signs Vital Signs Vital Signs: 06/12/25 09:19 06/12/25 09:19 06/12/25 09:35 Temperature 97.3 F L 97.3 F L Temperature Source Temporal Pulse Rate 102 H 102 H Respiratory Rate 16 16 Respiratory Pattern Normal Blood Pressure 154/94 H 154/94 H Blood Pressure Mean 114 Blood Pressure Source Monitor Blood Pressure Position Semi-Fowlers Blood Pressure Location Left Arm Pulse Ox 97 97 Oxygen Delivery Method Room Air Room Air Weight Weight: 166 lb 10.711 oz Body Mass Index (BMI) 24.6 Physical Exam Const alert, oriented x3 and no apparent distress HEENT normocephalic and head/scalp atraumatic Resp normal respiratory effort Cardio regular rate GI soft to palpation and non-tender; Negative for non-distended Palpation: Negative for guarding Extremity no clubbing, cyanosis or edema Skin no rashes or lesions noted Neuro CN's II-XII intact bilaterally Psych mental status grossly normal Assessment & Plan Assessment/Plan (1) Encounter for screening for malignant neoplasm of colon: Surgery Risks - Colonoscopy I discussed with the patient the risks of the procedure: Yes Risks Include but are not Limited To: Risks include but are not limited to: Bleeding, perforation requiring further surgery, inability to complete colonoscopy requiring barium enema. 06/12/25 1029 Cosigner Signature (if applicable): CC: Dr. Evelia Bains MD; Dr. Francie Cedeño MD~ Signed [facility]07-21-2025 [facility] Medical Records Department [address] [place] [id number] History Physical Exam 06/12/25 0950 MR#: [id number] Acct: [id number] Name: NICKIE BROWNE Rep #: [id number] : 1965 59 From: Francie Cedeño MD PCP: Dr. Evelia Bains MD Status:[facility] Location: [place] [address] HPI - General General Date of Service: 06/12/25 HPI Narrative NICKIE BROWNE, is a 59 M who presents for screening colonoscopy. Patient last colonoscopy was 11/2017 had a fair prep recommended follow-up in 7 years for repeat. Patient denies any family history of colon cancer. Patient has bowel movement daily denies any blood. Patient denies any chronic abdominal pain/nausea/vomiting/reflux. [facility] Medical History (Updated 06/09/25 @ 08:46 by Amita Locke) PONV (postoperative nausea and vomiting) Loss of hearing Wears glasses Alcohol use Thyroid disease Rheumatoid arthritis Gastric reflux Non-smoker Cardiology follow-up encounter History of echocardiogram History of fracture of arm TFCC (triangular fibrocartilage complex) injury Hypertension Osteoarthritis Chronic back pain Home Medications ???Medication ???Instructions ???Recorded ???Last Taken ???Type hydroxychloroquine 200 mg tablet 400 mg PO QHS RA 03/01/17 06/04/18 History leflunomide 20 mg tablet 20 mg PO QHS RA 03/01/17 06/04/18 History levothyroxine 125 mcg tablet 150 mcg PO DAILY@0600 11/10/18 History omeprazole 20 mg capsule,delayed 20 mg PO DAILY GERD 11/10/18 Unkno wn History release celecoxib 100 mg capsule (Celebrex) 100 mg PO BID 01/06/22 Unknown History amitriptyline 100 mg tablet 100 mg PO QHS 07/16/23 Unknown His tory cyclobenzaprine 5 mg tablet 5 mg PO QHS 07/16/23 Unknown Histo ry metoprolol succinate 100 mg 100 mg PO DAILY 07/16/23 06/12/25 History tablet,extended release 24 hr Allergy/AdvReac Type Severity Reaction Status Date / Time No Known Allergies Allergy Verified 06/12/25 09:19 Family History Father Myocardial infarction Hypertension CAD (coronary artery disease) PCI-Stent x 2 Unknown Arthritis High cholesterol Thyroid disorder Skin cancer Surgical History (Updated 06/09/25 @ 08:46 by Amita Locke) Hx of colonoscopy History of thumb surgery History of carpal tunnel surgery of right wrist History of lumbar surgery History of thyroidectomy History of herniorrhaphy Social History Smoking Status: Never smoker alcohol intake: never substance use type: does not use Past Medical/Surgical History Planned Operation Planned Operative Procedure(s): CSCOPE OA S.O.S: No Previous Hospitalizations/Surgeries HX Hospitalizations: No HX of Surgeries: COLONOSCOPY HERNIA REAPIR Any Problems With Anesthesia: Yes (N,V) You/Your Family Experience Fever (Hyperthermia) With Anes: No Cholinesterase deficiency: No Cardiovascular Hx Chest Pain within Last 2 months: No Hx of Irregular Heartbeat and/or Afib: No Hx Heart Attack: No Hx Congestive Heart Failure: No Hx Rheumatic Fever: No Hx Hypertension: Yes (CONTROLLED WITH MED) Hx Internal Defibrillator: No Hx Pacemaker: No Hx Cardiac Catheterization: No Hx Cardiac Surgery/Stents/Etc.: No Hx Stress Test: No (ECHO 2018) Hx Pain in Legs when Walking/Leg Cramps: No Respiratory Chronic Cough: No HX of Shortness of Breath: No Hoarseness: No Hx Chronic Obstructive Pulmonary Disease (COPD): No Hx Asthma: No Hx Emphysema: No Hx Sleep Apnea: No Hx Respiratory Tract Infection/Cold (presently): No Do You Snore Loudly (louder than talking or can be heard): No Do You Often Feel Tired/ Fatigued/ Sleepy Dring Daytime?: No Has Anyone Observed You Stop Breathing During Sleep?: No Result (for STOP score): Negative Hx Smoking: No Smoking Status: Never smoker Gastrointestinal Controlled With Meds: Yes (OMEPRAZOLE) Hx Gastrointestinal Disorders: No Hx Gastrointestinal Bleed: No Hx Ulcer: No Hx Hiatal Hernia: No Difficulty Chewing/Swallowing: No Special diet followed at home: No Hx Unplanned Weight Loss of 20#: No HX Unplanned Weight Gain of 20#: No Neurological Hx Seizures: No HX Syncope/Blackout Spells/Unconsciousness: No Hx Transient Ischemic Attacks (TIA): No Hx Multiple Sclerosis: No Hx Parkinson's Disease: No Hx Head/Neck Injury: No Hx Headaches: No Hx Back Injury/Pain: Yes Recent Onset of Speech Difficulty: No Restless Legs: No Does patient have nerve stimulator: No Blood Disorder Hx Leukemia: No Bleeding Tendencies: No Hx Deep Vein Thrombosis: No Hx High Cholesterol: No Blood Transmitted Disease: No Hx Hepatitis: No Hx Cirrhosis: No Hx Anemia: No Hx Blood Disorders: No Reproduction : No Genitourinary Hx Renal Disea (more content not included)...[facility] 06-12-2025 Consult note [facility] Medical Records Department [address] [place] [address] Pre-Anesthesia Evaluation 06/12/25 0932 MR#: [id number] Acct: [id number] Name: NICKIE BROWNE Rep #:[id number] : 1965 59 From: Araceli li CRNA PCP: Dr. Evelia Bains MD Status:REG [facility] Y Race: C Location: [place] [address] ASA Classification* ASA Classification ASA Classification: 3 Assessment & Plan Anesthesia* Anesthesia Assessment Anesthesia Assessment: Discussed sedation and/or anesthesia options, risks, benefits, and alternatives with patient/parents/legal guardian/POA. Questions invited. The patient/parents/legal guardian/POA seems to understand and agrees to proceedwith anesthesia plan. Reviewed the physical assessment, medical history, allergy history and patient home medications list prior to surgery/procedure/anesthetic and documented any changes. Performed airway and anesthesia risk assessments. Anesthesia Type Anesthesia Type: MAC History Source History Obtained from:: Patient and Chart Anesthesia Focused Assessment* Temperature: 97.3 F Pulse Rate: 102 Blood Pressure: 154/94 Respiratory Rate: 16 Pulse Ox: 97 Oxygen Delivery Method: Room Air Airway Assessment Mouth opens: >3 cm Mallampati Score: I Teeth Condition: Intact Neck Range of motion (ROM): Full ROM Labs Anesthesia Preop lab: CBC WBC 9.1 K/mm3 (4.4-11.0) 04/06/25 11:46 04/06/25 RBC 4.74 M/mm3 (4.6-6.2) 04/06/25 11:46 04/06/25 Hgb 13.9 g/dL (13.0-16.5) 04/06/25 11:46 04/06/25 Hct 42.4 % (40-54) 04/06/25 11:46 04/06/25 Plt Count 222 K/mm3 (150-450) 04/06/25 11:46 04/06/25 CHEMISTRY Potassium 3.2 mmol/L (3.5-5.1) L 11/10/18 23:50 11/10/18 Sodium 139 mmol/L (136-145) 11/10/18 23:50 11/10/18 Magnesium 2.0 mg/dL (1.6-2.6) 08/31/18 11:56 08/31/18 BUN 18 mg/dL (7-18) 11/10/18 23:50 11/10/18 Creatinine 0.93 mg/dL (0.70-1.20) 04/06/25 11:46 04/06/25 Glucose 104 mg/dL (74-106) 11/10/18 23:50 11/10/18 POC Glucose 132 mg/dL (70-110) H 08/27/18 10:28 08/27/18 TSH 0.694 uIU/mL (0.358-3.740) 10/01/24 09:34 11/0 08/16 COAG Pre-Assessment Diagnosis/Proposed Procedure Planned Operative Procedure(s): CSCOPE OA Anesthesia History Anesthesia History - configuration management analyst: Anesthesia History - configuration management analyst Hx Hospitalization No 06/09/25 08:38 Any Problems With Anesthesia Yes: N,V 06/09/25 08:38 Cholinesterase deficiency No 06/09/25 08:38 You/Your Family Experience No 06/09/25 08:38 fever (hyperthermia) with Relationship Recent Exposure to Contagious No 06/12/25 09:19 Disease Does patient have nerve No 06/09/25 08:38 stimulator Patient instructed to have device shut off --Does patient have Pacemaker No 06/12/25 09:19 or ICD? When Was Last Pacemaker Check QUESTION #4 FULL TEXT: You/Your Family Experience fever (hyperthermia) with Anesthesia Last Oral Intake Last Oral intake: Last Oral Intake NPO since 06:30 06/12/25 09:19 Meds taken in AM with sips of Yes 06/12/25 09:19 water? Meds patient instructed to see medlist 06/12/25 09:19 take am of surgery PONV PONV - configuration management analyst: PONV - configuration management analyst Female No 06/09/25 08:38 HX of Motion Sickness No 06/09/25 08:38 HX of N/V After Surgery No 06/09/25 08:38 Non-Smoker Yes 06/09/25 08:38 Duration of Surgery greater No 06/09/25 08:38 than 60 minutes Number of Risk Factors 1 06/09/25 08:38 PONV Score Low Risk 06/09/25 08:38 Height & Weight Height & Weight: Anesthesia: Height & Weight Height 5 ft 9 in 06/12/25 09:19 Weight: 75.6 kg 06/12/25 09:19 Body Mass Index (BMI) 24.6 06/12/25 09:19 Respiratory Assessment Respiratory Assessment - configuration management analyst: Respiratory Tract Infection Hx - configuration management analyst Hx Respiratory Tract Infection No 06/09/25 08:38 STOP Sleep Apnea STOP Sleep Apnea - configuration management analyst: STOP Sleep Apnea - configuration management analyst Hx Hypertension Yes: CONTROLLED WITH MED 06/09/25 08:38 Hx Sleep Apnea No 06/09/25 08:38 CPAP BIPAP Do you snore loudly (louder No 06/09/25 08:38 than talking or can be heard Do you often feel tired/ No 06/09/25 08:38 fatigued/ sleepy during daytime? Has anyone observed you stop No 06/09/25 08:38 breathing during sleep? STOP Results Negative 06/09/25 08:38 QUESTION #5 FULL TEXT : Do you snore loudly (louder than talking or can be heard through closeddoors)? 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 Specify any problems Hx of Preganancy in last 3 N/A 06/09/25 08:38 Months Nurse Filling Out Transfusion DSCHRIBER 06/09/25 08:38 & Questions: Date: 06/09/25 06/09/25 08:38 Time: 08:40 06/09/25 08:38 Patient unable to answer at this time (ie. 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 Hx Now No 06/09/25 08:38 Gestational Age (in weeks): EDC: Hx Hx Para Hx Section SAB No 06/09/25 08:38 Active Medications Active Medications: Current Medications Generic Name Dose Route Start Last Admin Trade Name Michaela PRN Reason Stop Dose Admin Lactated Ringer's 1,000 mls @ 15 mls/hr 06/12/25 09:15 06/12/25 09:26 IV 15 mls/hr .Q48H CHATO Administration PFS Medical History (Updated 06/09/25 @ 08:46 by Amita Locke) PONV (postoperative nausea and vomiting) Loss of hearing Wears glasses Alcohol use Thyroid disease Rheumatoid arthritis Gastric reflux Non-smoker Cardiology follow-up encounter History of echocardiogram History of fracture of arm TFCC (triangular fibrocartilage complex) injury Hypertension Osteoarthritis Chronic back pain Home Medications ?Medication ?Instructions ?Recorded ?Last Taken ?Type hydroxychloroquine 200 mg tablet 400 mg PO QHS RA 08/0906/04/18 History leflunomide 20 mg tablet 20 mg PO QHS RA 03/01/17 History levothyroxine 125 mcg tablet 150 mcg PO DAILY@0600 06/12/25 History omeprazole 20 mg capsule,delayed 20 mg PO DAILY GERD 1 01/11/18 Unknown History release celecoxib 100 mg capsule (Celebrex) 100 mg PO BID 12/24 03/14 Unknown History amitriptyline 100 mg tablet 100 mg PO QHS 07/16/23 Unk nown History cyclobenzaprine 5 mg tablet 5 mg PO QHS 07/16/23 Unkno wn History metoprolol succinate 100 mg 100 mg PO DAILY 07/16/23 0 06/12/25 History tablet,extended release 24 hr Allergy/AdvReac Type Severity Reaction Status Date / Time No Known Allergies Allergy Verified 06/12/25 09:19 Family History Father Myocardial infarction Hypertension CAD (coronary artery disease) PCI-Stent x 2 Unknown Arthritis High cholesterol Thyroid disorder Skin cancer Surgical History (Updated 06/09/25 @ 08:46 by Amita Locke) Hx of colonoscopy History of thumb surgery History of carpal tunnel surgery of right wrist History of lumbar surgery History of thyroidectomy History of herniorrhaphy Social History Smoking Status: Never smoker alcohol intake: never substance use type: does not use Review of Systems (Anesthesia) ROS Narrative System reviewed and no additional complaints, except as documented. 06/12/25 0935 jeanine CELL ROOM SUPERVISOR> Date _ Araceli Lilian CELL ROOM SUPERVISOR Cosigner Signature: Date CC: ~ Signed [facility]04-20-2022 Instructions* Instruction Description Start Date Completed [facility] Work Phone: [phone]) 300-599403-12-2022 Instructions* Instruction Description Start Date Completed [facility] Work Phone: consult note Author Anshul Singh [facility] Note Date/Time June 12, 2025 11:0 7am [facility] Medical Records Department [address] [place] [address] Anesthesia Postop Eval I 06/12/251105 MR#: [id number] Acct: [id number] Name: NICKIE BROWNE Rep #:[id number] : 1965 59 From: Anshul Singh PCP: Dr. Evelia Baisn MD Status:REG [facility] Y Race: C Location: [place] [address] Anesthesia: Postop Eval I Current Vital Signs Temperature: 97.9 F Pulse Rate: 77 Blood Pressure: 133/92 Respiratory Rate: 18 Pulse Ox: 98 Assessment Airway patent: Yes Spontaneous unlabored respirations: Yes nausea: No Vomiting: No Anesthesia Complication: No Fluid Hydration Crystalloid volume administer (ml): 500 Total IV fluid infused: 500 Progress Note Anesthesia document: Postop Eval 1 completed: Yes 06/12/25 1107 <Electronically signed by Anshul Singh > Date _ Anshul Khan Signature: Date CC: ~ Signed [facility] Work Phone: Evaluation noteThere may be information available, but it has not been provided by the sender.[facility] Work Phone: Evaluation note* Diagnosis Onset Date Resolution Status Cubital tunnel syndrome on left acute Wrist pain, left acute Cubital tunnel syndrome on left acute Rheumatoid arthritis acute TFCC (triangular fibrocartilage complex) injury acute [facility] Work Phone: Evaluation noteNo assessment information available [facility] Work Phone: Evaluation note* Diagnosis Onset Date Resolution Status Degenerative joint disease of both hips acute Hip pain, bilateral acute [facility] Work Phone: Hospital Discharge instructions Additional Instructions Please refrain from lifting heavy objects. Please return if develop bowel or bladder incontinence, decree sensation around her private parts, loss of sensation in your leg.[facility] Work Phone: Hospital Discharge instructionsAmbulatory Orders* PT Referral Location: None [facility] Work Phone: Instructions* Instruction Description Start Date CompletedPatient advised to follow-up with Primary Care Physician for BMI management. [facility] Work Phone: Reason for referral (narrative)No reason for referral information availableWSelect [facility] Work Phone: Summary Purpose Family History No Family History Records Found Relationship Condition Age at Onset Recorded Date/T tito father Myocardial infarction Unknown Hypertension Unknown Coronary artery disease Unknown Not Specified Arthritis Unknown High blood cholesterol Unknown Disorder of thyroid Unknown Malignant neoplasm of skin Unknown Relationship Condition Age at Onset Recorded Date/T tito father Myocardial infarction Unknown Hypertension Unknown Coronary artery disease Unknown unrelated friend Arthritis Unknown High blood cholesterol Unknown Disorder of thyroid Unknown Malignant neoplasm of skin Unknown Advance Directives No Advanced Directives Records Found Advance Directive Response Recorded Date/ Time Living Will No January 10, 2 022 1:53pm Power of Tariff Expert No January 10, 2022 1:53pm Latest Code Status on File Code Status Date Activated Date Inactivated Comments Full Code 11/08/2018 2:49 PM 11/09/2018 2:09 PM Advance Directive Response Recorded Date/ Time Living Will No July 22 2 7:18pm Power of Tariff Expert No July 22, 2 022 7:18pm Advance Directive Response Recorded Date/ Time Living Will No July 22 2 6:18pm Power of Tariff Expert No July 22, 2 022 6:18pm Latest Code Status on File Code Status Date Activated Date Inactivated Comments Full Code 11/08/2018 2:49 PM 11/09/2018 2:09 PM Advance Directive Response Recorded Date/ Time Do you have a Healthcare Power of Tariff Expert? Yes June 09, 2025 8:38am Chief Complaint Chief Complaint Description Start Date left wrist pain Preliminary chief co mplaint data, not yet signed by the author as of Chief Complaint Description Start Date left wrist pain Preliminary chief co mplaint data, not yet signed by the author as of Chief Complaint Description Start Date left wrist post LEFT WRIST A RTHROSCOPIC DEBRIDEMENT; TRIANGULAR FIBROCARTILAGE COMPLEX REPAIR; ULNAR SHORTENING OSTEOTOMY; CUBITAL TUNNEL RELEASE WITH TRANSPOSITION on 02/27/2022 Preliminary chief co mplaint data, not yet signed by the author as of Chief Complaint and Reason for Visit Chief Complaint Left wrist E ORDER LUE, LESION OF ULNAR NERVE LUE, LESION OF ULNAR NERVE LEFT WRIST NECK/WRIST PAIN. RX HERE S/O EVERY 3 MONTHS LT WRIST SX. RX HERE Reason for Visit Cubital tunnel syndr ome on left Wrist pain, left Cubital tunnel syndrome on left Rheumatoid arthritis TFCC (triangular fibrocartilage complex) injury Chief Complaint S/O EVERY 3 MONTHS LT WRIST SX. RX HERE Chief Complaint S/O EVERY 3 MONTHS LT WRIST SX. RX HERE back pain Chief Complaint LT WRIST SX. RX HERE back pain Chief Complaint LT WRIST SX. RX HERE back pain RT SHOULDER PAIN/RX HERE Chief Complaint RT SHOULDER PAIN/RX HERE RIGHT SHOULDER PAIN BACK PAIN Chief Complaint RIGHT SHOULDER PAIN BACK PAIN R ROTATOR CUFF TEAR RX HERE STANDING ORDER Chief Complaint R ROTATOR CUFF TEAR RX HERE STANDING ORDER Chief Complaint EST CARE Bilateral hip pain and weakness Reason for Visit Degenerative joint d isease of both hips Hip pain, bilateral Reason for Visit Admit Date Encounter for screening for malignant ne oplasm of colon June 12, 2025 9:03am Chief Complaint Admit Date RIGHT LEG July 14, 2025 7: 48am Reason for Visit Admit Date Encounter for screening for malignant ne oplasm of colon June 12, 2025 9:03am Strain of right quadriceps July 14, 2025 7:48am Chief Complaint Admit Date RIGHT LEG July 14, 2025 7: 48am STRAIN OF R QUAD. RX HERE July 25, 2025 1:00pm FAX RESULTS TO DR. ALFRED [phone] July 26, 2025 10:21am Additional Source Comments (unrecognized sect ion and content) No Status Records FoundNo Status Records Found INFORMATION SOURCE (unrecogn ized section and content) DATE CREATED AUTHOR 11/01/2018 [facility] DATE CREATED AUTHOR AUTHOR'S ORGANIZ ATION 08/06/2025 [facility] Reason for Visit (unrecogniz ed section and content) Reason For Visit Description New - 1st visit with practice Preliminary reason f or visit data, not yet signed by the author as of left wrist pain Reason For Visit Description Start Date Test Result Preliminary reason f or visit data, not yet signed by the author as of left wrist pain Reason For Visit Description Start Date Postop - 1st visit Preliminary reason f or visit data, not yet signed by the author as of left wrist post LEFT WRIST A RTHROSCOPIC DEBRIDEMENT; TRIANGULAR FIBROCARTILAGE COMPLEX REPAIR; ULNAR SHORTENING OSTEOTOMY; CUBITAL TUNNEL RELEASE WITH TRANSPOSITION on 02/27/2022 Goals (unrecognized section and content) Goals may be documented in a n alternate sectionGoals may be documented in an alternate sectionGoals may be documented in an alternate sectionGoals may be documented in an alternate sectionGoals may be documented in an alternate sectionGoals may be documented in an alternate sectionGoals may be documented in an alternate sectionGoals may be documented in an alternate sectionGoals may be documented in an alternate sectionGoals may be documented in an alternate sectionGoals may be documented in an alternate sectionGoals may be documented in an alternate sectionGoals may be documented in an alternate sectionGoals may be documented in an alternate section Care Teams (unrecognized sec tion and content) Team Status: Active Member Role Status Dates Dr. Evelia Bains MD Family Provider Active Dr. Evelia Bains MD Primary Care Provider Active Team Status: Inactive Member Role Status Dates Dr. Evelia Bains MD Primary Care Prov ider, Attending Provider, Referring Provider Active Team Status: Inactive Member Role Status Dates Dr. Evelia Bains MD Primary Care Provider Active Dr. Trini Campuzano MD Attending Provider Active Team Status: Inactive Member Role Status Dates Dr. Evelia Bains MD Primary Care Provider, Attendin g Provider Active Team Status: Active Member Role Status Dates Dr. Evelia Bains MD Primary Care Provider Active Dr. Trini Campuzano MD Attending Provider, Referring Provider Active Team Status: Inactive Member Role Status Dates Dr. Evelia Bains MD Primary Care Provider Active Dr. Fermin Alfred DO Attending Provider, Referring Provider Active Team Status: Inactive Member Role Status Dates Dr. Evelia Bains MD Primary Care Provider Active Dr. Trini Campuzano MD Attending Provider, Referring Provider Active Team Status: Inactive Member Role Status Dates Dr. Evelia Bains MD Primary Care Provider Active REJI ROOT Attending Provider, Referring Pr ovider Active Team Status: Inactive Member Role Status Dates Dr. Evelia Bains MD Primary Care Provider, Referrin g Provider Active Dr. Shantell Zhang DC Attending Provider Active Team Status: Inactive Member Role Status Dates Dr. Evelia Bains MD Primary Care Provider Active Dr. Shantell Zhang DC Attending Provider, Referring Pro vider Active Team Status: Inactive Member Role Status Dates Dr. Evelia Bains MD Primary Care Provider Active Start: January 27, 2025 End: January 27, 2025 Dr. Fermin Alfred DO Attending Provider Active Start: January 27, 2025 End: January 27, 2025 Dr. Fermin Alfred DO Referring Provider Active Start: January 27, 2025 End: January 27, 2025 Team Status: Inactive Member Role Status Dates Dr. Evelia Bains MD Primary Care Provider Active Start: April 06, 2025 End: April 06, 2025 DANIELA POTTS Attending Provider Active Sta rt: April 06, 2025 End: April 06, 2025 DANIELA POTTS Referring Provider Active Sta rt: April 06, 2025 End: April 06, 2025 Team Status: Active Member Role/Relationship Status Dates Dr. Evelia Bains MD Primary Care Provider Active Team Status: Inactive Member Role/Relationship Status Dates Dr. Evelia Bains MD Primary Care Provider Active Start: April 06, 2025 End: April 06, 2025 DANIELA POTTS Attending Provider Active Sta rt: April 06, 2025 End: April 06, 2025 DANIELA POTTS Referring Provider Active Sta rt: April 06, 2025 End: April 06, 2025 Team Status: Inactive Member Role/Relationship Status Dates Dr. Evelia Bains MD Primary Care Provider Active Start: June 12, 2025 End: June 12, 2025 Dr. Evelia Bains MD Referring Provider Active Start: June 12, 2025 End: June 12, 2025 Dr. Francie Cedeño MD Attending Provider Active Start: June 12, 2025 End: June 12, 2025 Team Status: Active Member Role/Relationship Status Dates Dr. Evelia Bains MD Primary Care Provider Active Start: June 12, 2025 Dr. Evelia Bains MD Referring Provider Active Start: June 12, 2025 Dr. Francie Cedeño MD Attending Provider Active Start: June 12, 2025 Dr. Francie Cedeño MD Other Provider Active S tart: June 12, 2025 Team Status: Inactive Member Role/Relationship Status Dates Dr. Evelia Bains MD Primary Care Provider Active Start: July 14, 2025 End: July 14, 2025 Dr. Evelia Bains MD Referring Provider Active Start: July 14, 2025 End: July 14, 2025 Royce Soto MD Attending Provider Active St art: July 14, 2025 End: July 14, 2025 Team Status: Active Member Role/Relationship Status Dates Dr. Evelia Bains MD Primary Care Provider Active Start: July 25, 2025 Royce Soto MD Attending Provider Active St art: July 25, 2025 Royce Soto MD Referring Provider Active St art: July 25, 2025 Team Status: Inactive Member Role/Relationship Status Dates Dr. Evelia Bains MD Primary Care Provider Active Start: July 26, 2025 End: July 26, 2025 Dr. Fermin Alfred DO Attending Provider Active Start: July 26, 2025 End: July 26, 2025 Dr. Fermin Alfred DO Referring Provider Active Start: July 26, 2025 End: July 26, 2025 FOR RECORDS PERTAINING TO PATIENTS WHO ARE OR HAVE BEEN ENROLLED IN A CHEMICAL DEPENDENCY/SUBSTANCEABUSE PROGRAM, SOME INFORMATION MAY BE OMITTED. This clinical summary was aggregated from multiple sources. Caution should be exercised in using it in the provision of clinical care. This summary normalizes information from multiple sources, and as a consequence, information in this document may materially change the coding, format and clinical context of patient data. In addition, data may be omitted in some cases. CLINICAL DECISIONS SHOULD BE BASED ON THE PRIMARY CLINICAL RECORDS. [facility] [email or web address] [facility] provides no warranty or guarantee of the accuracy or completeness of information in this document.
[2025-10-28 10:12] LABS: Hematocrit 43.9 % (40-54); Hemoglobin 14.3 g/dL (13.0-16.5); Immature Granulocytes Count 0.030 X10^3/uL (0.0-0.0); Mean Corp Hgb Conc 32.6 g/dL (32-36); Mean Corpuscular Volume 89.2 fL (80-94); Mean Platelet Vol. 10.1 fl (6.2-12.0); NRBC Flagged by Analyzer 0 % (0-5); Platelet Count 251 K/mm3 (150-450); RBC Distribution Width CV 13.2 % (11.6-14.6); RBC Distribution Width SD 43.5 fl (35.1-43.9); Red Blood Count 4.92 M/mm3 (4.6-6.2); White Blood Count 8.1 K/mm3 (4.4-11.0)
[2025-10-28 10:51] LABS: AST(SGOT) 38 U/L (<=37); Alanine Aminotransfer ALT/SGPT 27 U/L (<=46); Albumin, Serum 4.3 g/dL (3.5-5.0); Alkaline Phosphatase 88 U/L (40-129); Bilirubin, Direct 0.18 mg/dL (0.00-0.30); Globulin 2.9 g/dL (2.2-4.2)
[2025-10-28 10:52] LABS: CRP < 3.00 mg/L (0.0-3.0)
[2025-10-28 10:56] LABS: Cholesterol 181 mg/dL (<=200); Low Density Lipoprotein Calc. 102 mg/dL; Triglycerides 124 mg/dL; Very Low Density Lipoprotein 25 mg/dL (5-40); cholesterol:hdl ratio screen 3.19
== END | disposition home or self-care (01) ==
LOC: LAB 09:41
PROVIDERS: Internal Medicine Rheumatology; PCP Family Medicine; Referring Provider Family Medicine; Visit Provider Family Medicine
DX: E78.5 Hyperlipidemia, unspecified (principal); M06.4 Inflammatory polyarthropathy; E03.2 Hypothyroidism due to medicaments and other exogenous substances; Z79.899 Other long term (current) drug therapy
CPT/HCPCS: 36415; 80061; 80076; 82565; 84443; 85025; 85652; 86140